=== PATIENT | female | born 1950 | race Caucasian/White ===

== ENCOUNTER 2019-04-04 12:27 | Outpatient (CLI) | payer MEDICARE, SELFPAY ==
--- NOTE | ~2019-04-04 | US_ITS ---
US thyroid INDICATION: Multinodular goiter TECHNIQUE: Real-time sonographic images of the thyroid gland were obtained. COMPARISON: No prior studies for comparison. FINDINGS: The right thyroid lobe measures 2.1 x 0.8 x 0.9 cm. The left thyroid lobe measures 3.7 x 1 x 0.9 cm. There are small hypoechoic masses in both lobes measuring 3 mm maximum dimension on the ri ght and 4 mm maximum dimension on the left. Normal vascular flow is present. IMPRESSION: 1. Atrophic thyroid gland with small 3-4 mm thyroid masses which are likely benign. Reviewed, dictated and finalized at location A. AGE RECEIPT POSTER IMPRESSION: 1. Atrophic thyroid gland with small 3-4 mm thyroid masses which are likely be nign.
== END 2019-04-04 12:28 | disposition home or self-care (01) ==
LOC: ANHIMG 12:33
PROVIDERS: PCP Internal Medicine; Visit Provider Internal Medicine
DX: E04.2 Nontoxic multinodular goiter (principal)
CPT/HCPCS: 76536

== ENCOUNTER → 2019-10-09 14:42 | Outpatient (CLI) | payer MEDICARE, SELFPAY ==
--- NOTE | ~2019-10-09 | XR_ITS ---
XR chest 2V DATE: 10/09/2019 15:01 INDICATION: Cough TECHNIQUE: PA and lateral views COMPARISON: 06/29/2016 two-view chest FINDINGS: Status post right mastectomy and right axillary node dissection. Bilateral chronic lung scarring is noted. Bilateral hyperinflation, suggesting COPD. No pulmonary infiltrate or consolidation, pleural effusion or pulmonary vascular congestion or pneumo thorax is detected. Normal heart size. Aortic arch calcification. Diffuse osteopenia. IMPRESSION: Status post right mastectomy and right axillary node dissection for presumed right breast cancer Bilateral hyperinflation suggesting COPD Chronic bilateral lung scarring No active disease or significant change since 06/29/2016 Reviewed, dictated and finalized at location B.
== END ==
PROVIDERS: Visit Provider Internal Medicine
DX: R05 Cough (principal); Z90.11 Acquired absence of right breast and nipple; R91.8 Other nonspecific abnormal finding of lung field
CPT/HCPCS: 71046

== ENCOUNTER → 2019-12-31 13:11 | Outpatient (CLI) | payer MEDICARE, SELFPAY ==
--- NOTE | ~2019-12-31 | MM_ITS ---
EXAMINATION: MM screening jake LT w nomi HISTORY: Screening left mammogram, history of right mastectomy TECHNIQUE: Craniocaudal and mediolateral oblique 3-D tomosynthesis images were obtained and synthetic 2-D images were generated. CAD analysis was submitted and interpreted. COMPARISON: 12/13/2018, 11/15/2017, 11/11/2016 BREAST PARENCHYMAL COMPOSITION: There are scattered areas of fibroglandular density. FINDINGS: Small, stable masses are present in the breast. There is no evidence of suspicious mass, ca lcification, or architectural distortion to suggest malignancy in either breast. There has been no perez spicious interval change. IMPRESSION: 1. No mammographic evidence of malignancy. 2. Recommend routine screening mammography in one year. BI-RADS Category 2: Benign finding(s). Reviewed, dictated and finalized at location A.
== END ==
PROVIDERS: PCP Internal Medicine; Visit Provider Internal Medicine
DX: Z12.31 Encounter for screening mammogram for malignant neoplasm of breast (principal)
CPT/HCPCS: 77063; 77067

== ENCOUNTER 2020-08-04 07:55 | Outpatient (CLI) | payer MEDICARE, SELFPAY ==
--- NOTE | 2020-08-04 13:02 | WPDPFTINT ---
PFT Procedure Performed PFT Procedure Performed Plethysmography (Lung Vol) Diffusing Cap (DLCO) Flow Vol Loop Spirometry w/o Bronchodil PFT Interpretation This is a pulmonary function test with spirometry, plethysmography and diffusing capacity. The test was performed and results interpreted in accordance with the 2019 and 2005 ATS/ERS Task Force guidelines respectively using the Global Lung Function Initiative-2012 reference equations. Patient demonstrated good effort and cooperation. Reproducibility criteria were met. The quality of the spirometry maneuver was Grade A and post bronchodilator spirometry maneuver was Grade A. Findings: Spirometry: There is decreased maximal expiratory airflow at all lung volumes with concave expiratory flow tracing. The contour the inspiratory flow tracing is normal. The FVC is 1.85 L, 72% predicted. The FEV1 is 1.03 L, 52% predicted. The FEV1: FVC ratio is 56%. Plethysmography: Total lung capacity is 4.78 L, 101% predicted. The functional residual capacity is 3.51 L, 130% predicted. The residual volume is 2.92 L, 138% predicted. Diffusing capacity: The absolute diffusion capacity is 9.4, 49% predicted. The diffusing capacity corrected for alveolar volume is 2.87, 66% predicted. Impression: There is a moderately severe obstructive abnormality. The increase in residual volume is consistent with air trapping from an obstructive abnormality. The absolute diffusing capacity is moderately decreased and normalizes when corrected for alveolar volume. Impression: There is a moderately severe restrictive ventilatory abnormality. The spirometry is normal without evidence of an obstructive abnormality. There is no significant improvement after inhaling a single dose of albuterol. The absolute diffusing capacity is moderately decreased and remains mildly decreased when corrected for alveolar volume. There are no prior studies for comparison
== END 2020-08-04 07:56 | disposition home or self-care (01) ==
PROVIDERS: PCP Internal Medicine; Visit Provider Internal Medicine Cardiovascular Disease
DX: R06.00 Dyspnea, unspecified (principal); R94.2 Abnormal results of pulmonary function studies
CPT/HCPCS: 94375; 94726; 94729

== ENCOUNTER 2020-12-23 07:58 | Outpatient (CLI) | payer MEDICARE, SELFPAY ==
--- NOTE | ~2020-12-23 | CT_ITS ---
EXAMINATION: CT lung screening DATE: 12/23/2020 08:45 INDICATION: Personal history of nicotine dependence. Shortness of breath. TECHNIQUE: Computed tomography (CT) of the chest was performed without intravenous contrast. The dose -length product was 61.00 mGy-cm. Automated exposure control and iterative reconstruction technique w ere employed. COMPARISON: CT dated 06/21/2004 FINDINGS: Status post right mastectomy. There is atherosclerosis of the aorta and coronary arteries. There are calcified granulomas of the liver and spleen. There are calcified mediastinal lymph nodes, consistent with chronic granulomatous disease. There is emphysema. There is upper lobe scarring bilat erally, possibly related to previous radiation therapy and surgery. No endobronchial lesions. No pneu mothorax. No focal airspace consolidation. There are a few 1-2 mm nodules in the subpleural space, li yanira benign. IMPRESSION: 1. Lung-RADS category 2: Benign appearance or behavior. Continue annual screening with noncontrast lo w-dose chest CT in 12 months. Reviewed, dictated and finalized at location B. IMPRESSION: 1. Lung-RADS category 2: Benign appearance or behavior. Continue annual screeni ng with noncontrast low-dose chest CT in 12 months.
--- NOTE | 2020-12-23 12:50 | WPDSIXMINUTE ---
Six Minute Walk Procedure Procedure Performed Pulmonary Stress Test (6 min walk) Six Minute Walk This is a 6 minute walk test. The test was performed and interpreted in accordance with the 2014 ERS/ATS task force guidelines. Findings: The patient's resting room air oxygen saturation measured by pulse oximetry was 94% and her heart rate was 84 bpm. Patient ambulated for 427 meters and oxygen saturation remained 91 to 95%. Heart rate at the end of the study was 122 bpm. The patient did not qualify for supplemental oxygen at rest or with ambulation. There are no prior studies for comparison.
== END 2020-12-23 07:59 | disposition home or self-care (01) ==
PROVIDERS: PCP Internal Medicine; Visit Provider Internal Medicine Pulmonary Disease
DX: Z87.891 Personal history of nicotine dependence (principal)
CPT/HCPCS: 71271; 94618

== ENCOUNTER → 2021-02-17 13:49 | Outpatient (CLI) | payer MEDICARE, SELFPAY ==
--- NOTE | ~2021-02-17 | MM_ITS ---
EXAMINATION: MM screening jake LT w nomi HISTORY: Screening mammogram TECHNIQUE: Craniocaudal and mediolateral oblique 3-D tomosynthesis images were obtained and synthetic 2-D images were generated. CAD analysis was submitted and interpreted. COMPARISON: 12/31/2019, 12/13/2018, 11/15/2017 left screening mammogram examinations BREAST PARENCHYMAL COMPOSITION: There are scattered areas of fibroglandular density. FINDINGS: Occasional circumscribed masses are stable or diminished in size since 12/31/2019. There is no evidence of suspicious mass, calcification, or architectural distortion to suggest malignancy in either breast. There has been no suspicious interval change. IMPRESSION: 1. No mammographic evidence of malignancy. 2. Recommend routine screening mammography in one year. BI-RADS Category 2: Benign finding(s). Reviewed, dictated and finalized at location A. 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
== END ==
PROVIDERS: PCP Internal Medicine; Visit Provider Internal Medicine
DX: Z12.31 Encounter for screening mammogram for malignant neoplasm of breast (principal)
CPT/HCPCS: 77063; 77067

== ENCOUNTER 2021-04-01 08:50 | Outpatient (CLI) | payer MEDICARE, SELFPAY ==
--- NOTE | ~2021-04-01 | US_ITS ---
EXAMINATION: US carotid duplex BI DATE: 04/01/2021 10:11 INDICATION: Right carotid bruit TECHNIQUE: Grayscale, color Doppler, and pulsed Doppler images of the cervical carotid arteries were obtained. The degree of vessel stenosis is placed in one of the following categories: normal, <50%, 5 0-69%, >=70% but less than near-occlusion, near-occlusion, or total occlusion. Note that percent sten osis relative to normal distal artery lumen diameter is indirectly measured from velocity measurement s as described by Gibson, et al. Radiology 2003; 229:340-346. Notes: Normal: Peak systolic velocity <125 centimeters/sec and no plaque <50%. Peak systolic velocity <125 ( EDV <40; ICA/CCA PSV ratio <2.0; used these factors only a tandem lesions or low cardiac output or co ntralateral disease) 50-69 %: PSV 125-230 (EDV 40-100; ratio 2-4) >= 70% but less than near occlusion: PSV greater than 230 (EDV > 100; ratio> 4.0) Near Occlusion: PSV that is variable; markedly narrowed lumen Occlusion: Absent flow on color/spectral Doppler and no lumen on evans scale. COMPARISON: Ultrasound dated 08/28/2013. FINDINGS: RIGHT: The right common carotid artery (CCA) peak systolic velocity (PSV) is 96 cm/s. The right internal car otid artery (ICA) PSV is 156 cm/s. The right ICA end-diastolic velocity (EDV) is 31 cm/s. The right I CA/CCA PSV ratio is 1.6. The external carotid artery (ECA) PSV is 107 cm/s. There is antegrade flow i n the right vertebral artery. LEFT: The left CCA PSV is 90 cm/s. The left ICA PSV is 120 cm/s. The left ICA EDV is 36 cm/s. The left ICA/ CCA PSV ratio is 1.3. The ECA PSV is 114 cm/s. There is antegrade flow in the left vertebral artery. IMPRESSION: 1. 50-69% stenosis in the right internal carotid artery by sonographic criteria. 2. Less than 50% stenosis in the left internal carotid artery by sonographic criteria. Reviewed, dictated and finalized at location B. RMATICS SPEC IMPRESSION: 1. 50-69% stenosis in the right internal carotid artery by sonographic criteria . 2. Less than 50% stenosis in the left internal carotid artery by sonographic cr iteria.
--- NOTE | ~2021-04-01 | US_ITS ---
EXAMINATION: US aorta [facility] DATE: 04/01/2021 10:14 TAP PULLER INDICATION: Abdominal aortic aneurysm screening. History of smoking. High cholesterol. Previous myoca rdial infarction. TECHNIQUE: Grayscale, color Doppler, and pulsed Doppler images of the aorta and common iliac arteries were obtained. COMPARISON: None. FINDINGS: The proximal aorta measures 2.2 cm greatest sagittal dimension. The mid aorta measures 1.9 cm greates t sagittal dimension. The distal aorta measures 2.1 cm greatest sagittal dimension. The right common internal iliac artery measures 1 cm. The left common iliac artery measures 2.7 cm. IMPRESSION: 1. Mild atherosclerosis of the aorta without aneurysm. Reviewed, dictated and finalized at location B. PULLER
== END 2021-04-01 08:51 | disposition home or self-care (01) ==
PROVIDERS: PCP Internal Medicine; Visit Provider Internal Medicine Cardiovascular Disease
DX: R09.89 Other specified symptoms and signs involving the circulatory and respiratory systems (principal); Z13.6 Encounter for screening for cardiovascular disorders; I70.0 Atherosclerosis of aorta; I65.23 Occlusion and stenosis of bilateral carotid arteries
CPT/HCPCS: 76706; 93880

== ENCOUNTER 2021-07-29 11:46 | Emergency (ER) | payer MEDICARE, SELFPAY ==
--- NOTE | ~2021-07-29 | CT_ITS ---
EXAMINATION: CT abdomen pelvis wo con DATE: 07/29/2021 14:05 INDICATION: Right flank pain TECHNIQUE: Computed tomography (CT) of the abdomen and pelvis was performed without intravenous contr ast. The dose-length product was 169.41 mGy-cm. Automated exposure control and iterative reconstructi on technique were employed. COMPARISON: CT dated 09/18/2012 FINDINGS: Lung bases are unremarkable. There are calcified granulomas in the lung, liver and spleen. No significant pleural or pericardial effusion. Heart size is normal. There are subtle hypodense lesi ons of the liver which are not well characterized without contrast. There is nodular appearance to th e liver surface, consistent with cirrhosis. The pancreas, adrenal glands and kidneys are unremarkable . There are left renal vascular calcifications. There is atherosclerosis of the aorta. No evidence fo r aneurysm. No lymphadenopathy. No ureteral stones or hydronephrosis. Bladder is not well distended, although unremarkable. Nonobstructive bowel gas pattern. No free air or free fluid. 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 There is superior endplate compression fractures of L2 and L4, likely chroni c, although new compared with CT dated 09/18/2012. IMPRESSION: 1. No acute abdominal abnormality. 2: No evidence for renal/ureteral stone or hydronephrosis. 3: Nodular appearance to the liver surface with multiple subtle hypodense lesions, not well characte rized without contrast. Cannot exclude malignancy. Further evaluation with contrast-enhanced MRI is r ecommended. Reviewed, dictated and finalized at location A. IMPRESSION: 1. No acute abdominal abnormality. 2: No evidence for renal/ureteral stone or hydronephrosis. 3: Nodular appearance to the liver surface with multiple subtle hypodense lesi ons, not well characterized without contrast. Cannot exclude malignancy. Furthe r evaluation with contrast-enhanced MRI is recommended.
[2021-07-29 11:49] VITALS: BP 152/81; PULSE 121; RESP 16; TEMP 36.6; O2SAT 97
[2021-07-29 12:09] VITALS: BP 115/66; PULSE 112; RESP 19; O2SAT 97
[2021-07-29 12:12] LABS: Basophils Absolute Auto 0.1 K/mm3 (0.0-0.1); Basophils Percent Auto 0.6 % (0.2-1.2); Eosinophils Absolute Auto 0.1 K/mm3 (0-0.3); Eosinophils Percent Auto 1.3 % (0-4.4); Hematocrit 46.6 % (37.0-47.0); Hemoglobin 14.9 g/dL (12.0-15.0); Immature Granulocyte Absolute 0.02 K/mm3 (0.00-0.031); Immature Granulocyte Percent A 0.2 % (0-0.5); Lymphocytes Absolute Auto 1.36 K/mm3 (0.9-3.2); Lymphocytes Percent Auto 15.7 % (18.3-44.2); Mean Corpuscular Volume 90.8 fl (80-100); Mean Platelet Volume 10.4 fl (7.4-10.4); Monocytes Absolute Auto 0.7 K/mm3 (0.1-0.6); Monocytes Percent Auto 8.1 % (2.6-8.5); Neutrophils Absolute Auto 6.4 K/mm3 (1.3-6.7); Neutrophils Percent Auto 74.1 % (45.5-73.1); Platelet Count Result 258 k/mm3 (150-375); Red Blood Count 5.13 M/mm3 (4.2-5.4); Red Cell Distribution Width 13.5 % (11.5-14.5); White Blood Count 8.7 K/mm3 (4.5-10.0)
[2021-07-29 12:21] LABS: Alanine Aminotransferase 24 U/L (6-35); Albumin Level 4.3 g/dL (3.5-5.1); Alkaline Phosphatase 181 U/L (38-126); Anion Gap 11 mmol/L (8-16); Aspartate Amino Transferase 49 U/L (14-36); Bilirubin,Total 0.8 mg/dL (0.2-1.3); Blood Urea Nitrogen 17 mg/dL (7-17); Calcium 9.1 mg/dL (8.4-10.2); Carbon Dioxide 24 mmol/L (22-30); Chloride 101 mmol/L (98-107); Estimated CRCL calculation 49 ml/min; Estimated Glomerular Filt Rate > 60; Glucose 155 mg/dL (65-110); Lipase 67 U/L (23-300); Potassium 4.1 mmol/L (3.4-5.0); Sodium 136 mmol/L (137-145)
[2021-07-29 13:04] LABS: Add Urine Microscopic? YES; Appearance Urine Cloudy (Clear); Bilirubin Urine 2+ (Negative); Blood Urine 1+ (Negative); Color Urine Yellow (Yellow); Glucose Urine UA Negative (Negative); Ketones Urine 1+ mg/dL (Negative); Leukocyte Esterase Ur 1+ LEU/UL (Negative); Nitrate Urine Negative (Negative); Protein Urine 2+ mg/dL (Negative); Specific Grav Ur >= 1.030 (1.001-1.035); pH Urine 5.5 (5.0-9.0)
[2021-07-29 13:08] LABS: Bacteria Urine Trace /hpf; Mucus Urine Heavy /lpf; RBC Urine 21-50 /hpf (0-2); Squamous Epithelial Cell Urine Many /hpf (Few); WBC Clumps Urine Present /HPF; WBC Urine >75 /hpf
[2021-07-29] MEDS: SODIUM CHLORIDE 0.9% IV 1,000 ML 999 ML IV CONT (13:58)
--- NOTE | 2021-07-29 13:58 | PC.NURSE ---
pt taken to CT
[2021-07-29 14:30] VITALS: BP 148/56; PULSE 95; RESP 20; O2SAT 99
--- NOTE | 2021-07-29 15:41 | ED.ABDPAIN ---
HPI - Abdominal Pain General Chief Complaint: Abdominal Pain Stated Complaint: r flank pain Time Seen by Provider: 07/29/21 11:50 Source: patient Mode of arrival: ambulatory Limitations: no limitations History of Present Illness HPI narrative: 71-year-old with a history of COPD, anxiety, hypothyroidism, hyperlipidemia, GERD here with complaints of pain in the right upper and back area for last 2 days. Patient states that she was trying to get out of the couch and experienced sudden onset of pain. She denies any nausea, vomiting or fever or chills. Denies urinary symptoms. MD elicited complaint: abdominal pain and flank pain Pertinent past history: none Onset (ago): day(s) (2) Pain Consistency: constant Location: RUQ Severity: moderate Quality: aching Radiation: none Migration to: no migration Relieving factors: nothing Associated symptoms: denies other symptoms Related Data Home Medications Medication Instructions Recorded Confirmed fexofenadine 180 mg tablet 180 mg PO DAILY 03/21/19 02/19/21 (Zakiya Allergy) fluticasone propionate 50 2 spray intranasal DAILY 03/21/19 02/19/21 mcg/actuation nasal spray,suspension (Flonase Allergy Relief) aspirin 81 mg tablet,delayed 81 mg PO DAILY 06/18/19 02/19/21 release (Adult Low Dose Aspirin) triamcinolone acetonide 0.1 % 1 applic topical TID 10/09/19 02/19/21 topical ointment rosuvastatin 40 mg tablet 40 mg PO DAILY 08/18/20 02/19/21 Allergies Allergy/AdvReac Type Severity Reaction Status Date / Time cinnamon Allergy Severe rash, Verified 07/29/21 11:58 blisters, hives, redness iodine Allergy Severe RASH, Verified 07/29/21 11:58 ITCH, SOB Sulfa (Sulfonamide Allergy Severe THROWS UP Verified 07/29/21 11:58 Antibiotics) BLOOD albuterol Allergy Intermediate itching, Verified 07/29/21 11:58 throat closes up, palpatations dexamethasone Allergy Intermediate rash, Verified 07/29/21 11:58 [From Maxitrol (neomycin blisters, sulf)] hives Fish Containing Products Allergy Intermediate HIVES,ITCHI Verified 07/29/21 11:58 NG ipratropium Allergy Intermediate rash, Verified 07/29/21 11:58 itchy, SOB neomycin Allergy Intermediate rash, Verified 07/29/21 11:58 [From Maxitrol (neomycin blisters, sulf)] hives nitrofurantoin Allergy Intermediate rash, Verified 07/29/21 11:58 [From Macrobid] itchy, SOB perfume Allergy Intermediate rash, Verified 07/29/21 11:58 hives, blisters polymyxin B Allergy Intermediate rash, Verified 07/29/21 11:58 [From Maxitrol (neomycin blisters, sulf)] hives shellfish derived Allergy Intermediate itch, Verified 07/29/21 11:58 rash, SOB wheat Allergy Intermediate CRAMPING, Verified 07/29/21 11:58 DIARRHEA amoxicillin Allergy Unknown Anaphylactic Verified 07/29/21 11:58 Shock soy Allergy Unknown SHUTS DOWN Verified 07/29/21 11:58 URINARY SYSTEM, BLOATS AND CANNOT URINATE laundry soap Tide and Gain Allergy Intermediate blisters, Uncoded 02/19/21 10:38 hives, itchiness, redness, rash Review of Systems Review of Systems: All systems reviewed & are unremarkable except as noted in HPI and below Constitutional: Constitutional: Reports no additional constitutional complaints Eyes: Eyes: Reports no additional eye complaints ENT: Reports system reviewed and no additional complaints, except as documented Cardiovascular: Cardiovascular: Reports no additional cardiovascular complaints Respiratory: Respiratory: Reports no additional respiratory complaints Gastrointestinal: Gastrointestinal: Reports as per HPI Musculoskeletal: Musculoskeletal: Reports no additional musculoskeletal complaints Integumentary/Breasts: Skin/Breast: Reports system reviewed and no additional complaints, except as docu Neurologic: Reports system reviewed and no additional complaints, except as documented Psychiatric: Ps
== END 2021-07-29 16:14 | disposition home or self-care (01) ==
PROVIDERS: Emergency Provider Family Medicine; PCP Internal Medicine
DX: N39.0 Urinary tract infection, site not specified (principal); R10.11 Right upper quadrant pain; E03.9 Hypothyroidism, unspecified; E78.5 Hyperlipidemia, unspecified; J44.9 Chronic obstructive pulmonary disease, unspecified; K21.9 Gastro-esophageal reflux disease without esophagitis; Z79.82 Long term (current) use of aspirin; Z85.3 Personal history of malignant neoplasm of breast; F17.210 Nicotine dependence, cigarettes, uncomplicated; K76.9 Liver disease, unspecified
CPT/HCPCS: 36415; 74176; 80053; 81001; 83690; 85025; 87086; 96361; 96365; 99284; J0696; J7030

== ENCOUNTER 2021-08-11 14:15 | Outpatient (CLI) | payer MEDICARE, SELFPAY ==
--- NOTE | ~2021-08-11 | MR_ITS ---
EXAMINATION: MR abdomen wo/w con DATE: 08/11/2021 15:47 INDICATION: Liver disease, unspecified. TECHNIQUE: Magnetic resonance imaging (MRI) of the abdomen was performed without with 10 mL MultiHanc e intravenous contrast. COMPARISON: CT abdomen and pelvis 07/29/2021, 09/18/2012 FINDINGS: There are greater than 10 masses in the liver measuring up to 5.6 cm. Most of the masses are in right hepatic lobe. Calcifications in the spleen are consistent with old granulomatous disease. The gallbl adder is absent. The pancreas, adrenal glands, and right kidney are normal. There is a 6 mm cyst in l eft kidney. There are no dilated loops of bowel. There are no pathologically enlarged lymph nodes. Th ere is no free intraperitoneal fluid. IMPRESSION: 1. Liver masses, consistent with metastatic disease. Ultrasound-guided core needle biopsy is recommen ded. Reviewed, dictated and finalized at location A. IMPRESSION: 1. Liver masses, consistent with metastatic disease. Ultrasound-guided core nee dle biopsy is recommended.
== END 2021-08-11 14:16 | disposition home or self-care (01) ==
PROVIDERS: PCP Internal Medicine; Visit Provider Internal Medicine
DX: K76.89 Other specified diseases of liver (principal)
CPT/HCPCS: 74183; A9577

== ENCOUNTER 2021-09-01 03:13 | Outpatient (CLI) | payer MEDICARE, SELFPAY ==
--- NOTE | 2021-08-20 12:28 | PC.NURSE ---
Pre Radiology instructions Report to the Outpatient Waiting Room, entrance under the green pavilion located off [facility], at time __0830 on date 09/01/21 . Procedure Time: __1030 . One visitor will be allowed to accompany the patient into the hospital. The visitor will be instructed to remain with patient at all times or leave the building. We will allow the visitor to come back to the postoperative area when patient is ready. You and your visitor will be asked a series of questions to screen for COVID 19 for your protection. A mask is required within the hospital. Patients are to have no food or drink 6 hours prior to procedure time Driving will be restricted after the procedure, you must have a person to drive you home. Labs will be drawn in preop area and once reviewed, you will be taken to radiology area for procedure. When the procedure is completed, you will be taken to outpatient where you will be monitored for several hours. You may have one visitor in this area. Other than holding anti-coagulants, patient may take other medication(s) as scheduled. Prior to your appointment date patients are instructed to hold anti-coagulants after discussing with ordering provider to stop. If unable to discontinue anti-coagulants please notify radiologist. No aspirin or warfarin (Coumadin) for 7 days prior to the procedure. No clopidogrel (Plavix), ticagrelor (Brilinta), prasugrel (Effient) or dabigatran (Pradaxa) for 5 days prior to the procedure. No rivaroxaban (Xarelto), apixaban (Eliquis), dipyridamole (Aggrenox or Persantine) or cilostazol (Pletal) for 2 days prior to the procedure. Medications to discontinue per physician: ASPIRIN Date to take last dose: __08/24/21 Please leave all valuables, including medications, at home the day of procedure. The hospital will not accept responsibility for valuables. Wear comfortable, loose fitting clothing. Follow any additional instructions given to you from ordering provider. Telephone instructions given to __PATIENT and asked if any additional questions and then verbalized understanding. Patient advised to call scheduling provider office or registration scheduling [phone] if any additional questions.
[2021-08-20 12:32] VITALS: BMI 20.8
[2021-09-01] VITALS (8 sets, daily range): BP systolic 122–162; BP diastolic 64–69; PULSE 85–109; RESP 14–16; TEMP 36.7; O2SAT 97–98
--- NOTE | ~2021-09-01 | US_ITS ---
EXAMINATION: US biopsy liver DATE: 09/01/2021 10:29 INDICATION: Liver mass TECHNIQUE: The procedure including the risks and benefits was discussed with the patient. Risks discu ssed included bleeding and infection. The patient understood the risks and agreed to proceed. The sk in overlying the liver was prepped and draped in usual sterile fashion. Anesthetic was administered with 1% lidocaine subcutaneously. An 18 gauge core biopsy needle was advanced under continuous ultra sound observation to the lesion of interest. 3 core biopsy specimens were obtained. The needle was removed and the entry site was cleaned and dressed. Post procedure ultrasound demonstrated no hemorr ab. FINDINGS: Ultrasound images demonstrate an approximately 6.0 x 5.6 cm poorly defined slightly hyperec hoic mass with lobular margins in the right hepatic lobe. Subsequent images demonstrate the biopsy ne edle advanced into the mass. IMPRESSION: 1. Successful Ultrasound-guided biopsy of a 6 cm mass in the right hepatic lobe. Reviewed, dictated and finalized at location A. IMPRESSION: 1. Successful Ultrasound-guided biopsy of a 6 cm mass in the right hepatic lobe .
[2021-09-01 09:21] LABS: Mean Platelet Volume 10.3 fl (7.4-10.4); Platelet Count Result 261 k/mm3 (150-375)
[2021-09-01 09:33] LABS: Prothrombin Time 12.7 Seconds (11.1-14.7)
== END 2021-09-01 14:27 | disposition home or self-care (01) ==
PROVIDERS: PCP Internal Medicine; Visit Provider Radiology Diagnostic Radiology
PROC: BF45ZZZ Ultrasonography of Liver (ICD-10-PCS; CPT 47000; principal; 2021-09-01 10:30)
DX: C22.8 Malignant neoplasm of liver, primary, unspecified as to type (principal); R16.0 Hepatomegaly, not elsewhere classified
CPT/HCPCS: 36415; 47000; 76942; 85049; 85610; 88307; 88342; 88360

== ENCOUNTER 2021-09-16 13:36 | Outpatient (CLI) | payer MEDICARE, SELFPAY ==
--- NOTE | ~2021-09-16 | PE_ITS ---
EXAMINATION: PET skull to mid thigh DATE: 09/16/2021 15:25 INDICATION: Liver cancer TECHNIQUE: Blood glucose level was 115 mg/dL. 10.937 mCi of 18-fluorodeoxyglucose (18-FDG) was admini stered i.v. Low dose computed tomography (CT) images were acquired from the base of the brain to the proximal thighs for attenuation correction and anatomic localization. Positron emission tomography (P ET) images were acquired in the same distribution beginning 57 minutes after injection. Images includ ing fused PET/CT images were reconstructed in axial, coronal, and sagittal planes. Automated exposure control technique was employed. The dose-length product was 356.84mGy-cm. COMPARISON: CT abdomen and pelvis dated 07/29/[address] of chest dated 12/23/2020 FINDINGS: Head/neck: There is symmetric increased activity in the oral cavity, palatine tonsils, right parotid gland laryn geal muscles and ocular muscles without CT correlate, likely physiologic. Poorly defined approximatel y 1 cm FDG avid nodule in the left parotid gland with maximal SUV of 9.2. No pathologically enlarged cervical lymphadenopathy or other suspicious foci of increased FDG uptake in the visualized head or n carie. Chest: Biapical pleural-parenchymal scarring without associated increased FDG uptake. Moderate emphysema. Pa rtial left pneumonectomy with suture lines and linear scarring along portions of the left upper lobe, superior segment of the left lower lobe and lingula. Calcified right lower lobe nodule and calcified mediastinal lymph nodes consistent with old granulomatous disease. No suspicious pulmonary nodules, pneumonia or pleural effusion. Heart size is normal. Atherosclerotic coronary artery calcific locatio n. Thoracic aorta is normal in caliber. Postoperative change of prior right mastectomy. Surgical clip s at the right axilla consistent with associated axillary lymph node dissection. No pathologically en larged for abnormal FDG avid thoracic lymphadenopathy. Abdomen/pelvis/proximal thighs: There are several FDG avid masses or larger geographic regions of increased FDG uptake with coarse bi cipital heterogeneous decreased attenuation on CT imaging which occupy greater than 50% the volume of the right hepatic lobe as well as a portion of segment 4A consistent with biopsy-proven malignancy. Maximal as SUV values of the regions ranges from 7.4-9.0 relative to a hepatic background of 3.1 SUV. Multiple hepatic and splenic calcific lesions consistent with old granulomatous disease. Physiologic renal accumulation and excretion of FDG activity in the kidneys, bladder and along portions of urete rs. Gallbladder is not visualized and likely surgically absent. Pancreas and bilateral adrenal glands are normal. Mild uptake scattered throughout the bowels without radiologic correlate, also likely ph ysiologic. No other abnormal foci of increased FDG uptake or pathologically enlarged lymphadenopathy in the abdomen, pelvis or proximal thighs. Musculoskeletal: There is diffuse synovial activity about the right glenohumeral joint without radiologic correlate. L ikely chronic superior endplate compression fractures with associated Schmorl's nodes at the superior endplates of L2 and L4 which are without increased FDG uptake to suggest acute fracture. No suspicio us lytic, blastic or FDG avid bone lesions. IMPRESSION: 1. Prominent increased FDG uptake associated with multiple masses/geographic regions occupying over h intermediate of the volume of the right hepatic lobe with additional smaller mass in segment 4A consistent wit h biopsy-proven malignant tumor reportedly consistent with metastatic carcinoma in patient with his tory of prior right breast cancer. 2. Approximately 1 cm ill-defined FDG avid mass in the left parotid gland concerning for neoplasm whi ch could be either benign or malignant primary parotid lesion or less likely lymphoma or metastatic d
[2021-09-16 14:02] LABS: Glucose Point of Care 115 mg/dl (65-105)
[2021-09-16 16:46] LABS: Basophils Absolute Auto 0.1 K/mm3 (0.0-0.1); Basophils Percent Auto 0.7 % (0.2-1.2); Eosinophils Absolute Auto 0.1 K/mm3 (0-0.3); Eosinophils Percent Auto 1.3 % (0-4.4); Hematocrit 45.2 % (37.0-47.0); Hemoglobin 14.3 g/dL (12.0-15.0); Immature Granulocyte Absolute 0.01 K/mm3 (0.00-0.031); Immature Granulocyte Percent A 0.1 % (0-0.5); Lymphocytes Absolute Auto 1.47 K/mm3 (0.9-3.2); Lymphocytes Percent Auto 19.4 % (18.3-44.2); Mean Corpuscular HGB Conc 31.6 g/dl (32-36); Mean Corpuscular Hemoglobin 28.6 pg (26-34); Mean Corpuscular Volume 90.4 fl (80-100); Mean Platelet Volume 11.4 fl (7.4-10.4); Monocytes Absolute Auto 0.6 K/mm3 (0.1-0.6); Monocytes Percent Auto 7.7 % (2.6-8.5); Neutrophils Absolute Auto 5.4 K/mm3 (1.3-6.7); Neutrophils Percent Auto 70.8 % (45.5-73.1); Platelet Count Result 217 k/mm3 (150-375); Red Cell Distribution Width 14.5 % (11.5-14.5); White Blood Count 7.6 K/mm3 (4.5-10.0)
[2021-09-16 16:56] LABS: Alanine Aminotransferase 25 U/L (6-35); Albumin Level 4.5 g/dL (3.5-5.1); Alkaline Phosphatase 164 U/L (38-126); Anion Gap 6 mmol/L (8-16); Aspartate Amino Transferase 41 U/L (14-36); Bilirubin,Total 0.5 mg/dL (0.2-1.3); Blood Urea Nitrogen 15 mg/dL (7-17); Carbon Dioxide 29 mmol/L (22-30); Chloride 100 mmol/L (98-107); Estimated Glomerular Filt Rate > 60; Glucose 88 mg/dL (65-110); Potassium 4.3 mmol/L (3.4-5.0); Sodium 135 mmol/L (137-145)
[2021-09-22 04:53] LABS: CA 15-3 46 U/mL (<32)
== END 2021-09-16 13:37 | disposition home or self-care (01) ==
PROVIDERS: PCP Internal Medicine; Visit Provider Internal Medicine Hematology & Oncology
DX: Z03.89 Encounter for observation for other suspected diseases and conditions ruled out (principal); C22.8 Malignant neoplasm of liver, primary, unspecified as to type; C50.919 Malignant neoplasm of unspecified site of unspecified female breast
CPT/HCPCS: 36415; 78815; 80053; 85025; 86300; A9552

== ENCOUNTER 2021-11-25 10:42 | Outpatient (CLI) | payer MEDICARE, SELFPAY ==
[2021-11-25 11:47] LABS: Basophils Percent Auto 1.6 % (0.2-1.2); Eosinophils Percent Auto 1.2 % (0-4.4); Hematocrit 38.4 % (37.0-47.0); Hemoglobin 12.4 g/dL (12.0-15.0); Immature Granulocyte Absolute 0.01 K/mm3 (0.00-0.031); Immature Granulocyte Percent A 0.4 % (0-0.5); Lymphocytes Absolute Auto 0.72 K/mm3 (0.9-3.2); Lymphocytes Percent Auto 29.4 % (18.3-44.2); Mean Corpuscular HGB Conc 32.3 g/dl (32-36); Mean Corpuscular Hemoglobin 30.5 pg (26-34); Mean Corpuscular Volume 94.3 fl (80-100); Mean Platelet Volume 9.7 fl (7.4-10.4); Monocytes Absolute Auto 0.1 K/mm3 (0.1-0.6); Monocytes Percent Auto 5.7 % (2.6-8.5); Neutrophils Absolute Auto 1.5 K/mm3 (1.3-6.7); Neutrophils Percent Auto 61.7 % (45.5-73.1); Platelet Count Result 145 k/mm3 (150-375); Red Blood Count 4.07 M/mm3 (4.2-5.4); Red Cell Distribution Width 18.9 % (11.5-14.5); White Blood Count 2.5 K/mm3 (4.5-10.0)
[2021-11-25 11:51] LABS: Schistocytes None Seen (NORMAL)
[2021-11-25 11:52] LABS: Atypical Lymphocytes Present
[2021-11-25 14:32] LABS: Alanine Aminotransferase 24 U/L (6-35); Albumin Level 4.1 g/dL (3.5-5.1); Alkaline Phosphatase 127 U/L (38-126); Anion Gap 12 mmol/L (8-16); Aspartate Amino Transferase 33 U/L (14-36); Bilirubin,Total 0.5 mg/dL (0.2-1.3); Blood Urea Nitrogen 22 mg/dL (7-17); Carbon Dioxide 24 mmol/L (22-30); Chloride 102 mmol/L (98-107); Estimated Glomerular Filt Rate 54; Glucose 105 mg/dL (65-110); Potassium 4.5 mmol/L (3.4-5.0); Sodium 138 mmol/L (137-145)
[2021-11-28 15:14] LABS: CA 15-3 63 U/mL (<32)
== END 2021-11-25 10:43 | disposition home or self-care (01) ==
LOC: ANHLAB 10:44
PROVIDERS: PCP Internal Medicine; Visit Provider Internal Medicine Hematology & Oncology
DX: C50.919 Malignant neoplasm of unspecified site of unspecified female breast (principal)
CPT/HCPCS: 36415; 80053; 85025; 86300

== ENCOUNTER 2021-12-29 08:45 | Outpatient (CLI) | payer MEDICARE, SELFPAY ==
--- NOTE | ~2021-12-29 | CT_ITS ---
EXAMINATION: CT chest abdomen pelvis w con DATE: 12/29/2021 09:19 INDICATION: Metastatic breast cancer. TECHNIQUE: Computed tomography (CT) of the chest, abdomen, and pelvis was performed with 100 mL Omnip aque 350 intravenous contrast. Automated exposure control and iterative reconstruction technique were employed. The dose-length product was 331.32 mGy-cm. COMPARISON: CT abdomen and pelvis 07/29/2021, abdomen MRI 08/11/2021 FINDINGS: CHEST CT: There is severe emphysema. There is mild scarring at the lung apices. There is mild radiation fibrosi s in anterolateral lateral right lung. Calcified pulmonary nodules and calcified hilar and mediastina l lymph nodes are consistent with old granulomatous disease. There are staple lines in left lung. No pleural effusion. The heart size is normal. There are coronary artery calcifications. No pericardial effusion. There are changes of right mastectomy. There are surgical clips in right axilla. There is s evere thoracic spondylosis. There is mild chronic anterior wedging of multiple vertebral bodies. ABDOMEN/PELVIS CT: Again seen are multiple hypodense masses in the liver. For example, a 5.2 cm mass in right hepatic lo be measured 6.0 cm on 08/11/2021. A 2.1 cm mass right hepatic lobe measured 2.0 cm on 08/11/2021. A 3.2 c m mass in right hepatic lobe measured 3.4 cm on 08/11/2021. Calcifications in the spleen are consistent with old granulomatous disease. The gallbladder is absent. The pancreas and adrenal glands are concepcion l. There is cortical thinning of the kidneys. There is a 5 mm cyst in left kidney. There is diverticu losis of the colon without evidence of diverticulitis. There are no dilated loops of bowel. The appen suly is not visualized. There is no significant stenosis of celiac axis. There is moderate stenosis of superior mesenteric artery. There are no pathologically enlarged lymph nodes. There is no free intra peritoneal fluid. There is mild lumbar spondylosis. There are chronic fractures of L2 and L4 vertebra l bodies. IMPRESSION: 1. Liver masses consistent with metastatic disease, stable from 08/11/2021. Reviewed, dictated and finalized at location A.
[2021-12-29 09:15] LABS: Estimated Glomerular Filt Rate > 60
== END 2021-12-29 08:46 | disposition home or self-care (01) ==
PROVIDERS: PCP Internal Medicine; Visit Provider Internal Medicine Hematology & Oncology
DX: C50.919 Malignant neoplasm of unspecified site of unspecified female breast (principal); R16.0 Hepatomegaly, not elsewhere classified
CPT/HCPCS: 36415; 71260; 74177; 80053; 85025; 86300; Q9967

== ENCOUNTER 2021-12-29 09:42 | Outpatient (CLI) | payer MEDICARE, SELFPAY ==
[2021-12-29 10:07] LABS: Hematocrit 31.8 % (37.0-47.0); Hemoglobin 11.1 g/dL (12.0-15.0); Immature Granulocyte Absolute 0.03 K/mm3 (0.00-0.031); Immature Granulocyte Percent A 0.6 % (0-0.5); Lymphocytes Absolute Auto 0.29 K/mm3 (0.9-3.2); Lymphocytes Percent Auto 6.2 % (18.3-44.2); Mean Corpuscular HGB Conc 34.9 g/dl (32-36); Mean Corpuscular Hemoglobin 33.4 pg (26-34); Mean Corpuscular Volume 95.8 fl (80-100); Mean Platelet Volume 9.4 fl (7.4-10.4); Monocytes Absolute Auto 0.2 K/mm3 (0.1-0.6); Monocytes Percent Auto 3.4 % (2.6-8.5); Neutrophils Absolute Auto 4.2 K/mm3 (1.3-6.7); Neutrophils Percent Auto 89.8 % (45.5-73.1); Platelet Count Result 193 k/mm3 (150-375); Red Blood Count 3.32 M/mm3 (4.2-5.4); Red Cell Distribution Width 21.2 % (11.5-14.5); White Blood Count 4.7 K/mm3 (4.5-10.0)
[2021-12-29 13:40] LABS: Alanine Aminotransferase 23 U/L (6-35); Albumin Level 4.2 g/dL (3.5-5.1); Alkaline Phosphatase 103 U/L (38-126); Anion Gap 17 mmol/L (8-16); Aspartate Amino Transferase 26 U/L (14-36); Bilirubin,Total 0.5 mg/dL (0.2-1.3); Blood Urea Nitrogen 20 mg/dL (7-17); Calcium 8.6 mg/dL (8.4-10.2); Carbon Dioxide 23 mmol/L (22-30); Chloride 102 mmol/L (98-107); Estimated Glomerular Filt Rate > 60; Glucose 147 mg/dL (65-110); Potassium 3.5 mmol/L (3.4-5.0); Sodium 142 mmol/L (137-145)
[2022-01-03 13:15] LABS: CA 15-3 71 U/mL (<32)
== END 2021-12-29 09:43 | disposition home or self-care (01) ==
LOC: ANHLAB 09:43
PROVIDERS: PCP Internal Medicine; Visit Provider Internal Medicine Hematology & Oncology
DX: C50.919 Malignant neoplasm of unspecified site of unspecified female breast (principal)
CPT/HCPCS: 36415; 80053; 85025; 86300

== ENCOUNTER 2022-03-08 10:55 | Outpatient (CLI) | payer MEDICARE, SELFPAY ==
[2022-03-08 11:57] LABS: Basophils Percent Auto 1.8 % (0.2-1.2); Eosinophils Absolute Auto 0.1 K/mm3 (0-0.3); Eosinophils Percent Auto 3.1 % (0-4.4); Hematocrit 36.7 % (37.0-47.0); Hemoglobin 12.3 g/dL (12.0-15.0); Immature Granulocyte Absolute 0.02 K/mm3 (0.00-0.031); Immature Granulocyte Percent A 0.9 % (0-0.5); Lymphocytes Percent Auto 26.4 % (18.3-44.2); Mean Corpuscular HGB Conc 33.5 g/dl (32-36); Mean Corpuscular Hemoglobin 36.9 pg (26-34); Mean Corpuscular Volume 110.2 fl (80-100); Mean Platelet Volume 9.2 fl (7.4-10.4); Monocytes Absolute Auto 0.1 K/mm3 (0.1-0.6); Monocytes Percent Auto 4.4 % (2.6-8.5); Neutrophils Absolute Auto 1.4 K/mm3 (1.3-6.7); Neutrophils Percent Auto 63.4 % (45.5-73.1); Platelet Count Result 294 k/mm3 (150-375); Red Blood Count 3.33 M/mm3 (4.2-5.4); Red Cell Distribution Width 14.2 % (11.5-14.5); White Blood Count 2.3 K/mm3 (4.5-10.0)
[2022-03-08 12:02] LABS: Atypical Lymphocytes Present; Platelet Estimate Adequate (Adequate); Schistocytes None Seen (NORMAL)
[2022-03-08 20:48] LABS: Alanine Aminotransferase 20 U/L (6-35); Albumin Level 4.3 g/dL (3.5-5.1); Alkaline Phosphatase 125 U/L (38-126); Anion Gap 8 mmol/L (8-16); Aspartate Amino Transferase 25 U/L (14-36); Bilirubin,Total 0.6 mg/dL (0.2-1.3); Blood Urea Nitrogen 18 mg/dL (7-17); Calcium 9.1 mg/dL (8.4-10.2); Carbon Dioxide 26 mmol/L (22-30); Chloride 102 mmol/L (98-107); Estimated Glomerular Filt Rate 49; Glucose 93 mg/dL (65-110); Potassium 4.3 mmol/L (3.4-5.0); Sodium 136 mmol/L (137-145)
[2022-03-11 14:39] LABS: CA 15-3 51 U/mL (<32)
== END 2022-03-08 10:56 | disposition home or self-care (01) ==
PROVIDERS: PCP Physician Assistant; Visit Provider Internal Medicine Hematology & Oncology
DX: C50.919 Malignant neoplasm of unspecified site of unspecified female breast (principal)
CPT/HCPCS: 36415; 80053; 85025; 86300

== ENCOUNTER → 2022-03-21 10:33 | Outpatient (CLI) | payer MEDICARE, SELFPAY ==
--- NOTE | ~2022-03-21 | XR_ITS ---
XR lumbar spine 2-3V DATE: 03/21/2022 10:46 INDICATION: Back pain TECHNIQUE: AP, lateral, coned lateral lumbosacral views COMPARISON: 12/02/2016 lumbar spine 12/16/2016 MRI lumbar spine FINDINGS: There is chronic mild anterior wedge compression fracture deformity of L4. This appears sta ble since 12/02/2016. There is interval mild anterior wedge compression fracture deformity of L2, not present on 12/02/2016. No bone destruction is evident. Included lower thoracic and lumbar pedicles are intact. Diffuse osteopenia. There is moderate loss of disc space height at L1-2. Remaining lumbar and upper sacral interspaces ap pear relatively preserved. There is degenerative change at the apophyseal joints in the lower lumbar and lumbosacral area with a ssociated grade 1 anterolisthesis at L4-5. The sacroiliac joints are intact. IMPRESSION: Mild anterior wedge compression fracture of L2 since 12/02/2016 Stable mild to moderate anterior wedge compression fracture deformity of L4, unchanged since Moderate degenerative disease at L1-2 Degenerative changes apophyseal joints, with associated grade 1 anterolisthesis at L4-5 Osteopenia Reviewed, dictated and finalized at location B. [employer] IMPRESSION: Mild anterior wedge compression fracture of L2 since 12/02/2016 Stable mild to moderate anterior wedge compression fracture deformity of L4, un changed since 12/02/2021 Moderate degenerative disease at L1-2 Degenerative changes apophyseal joints, with associated grade 1 anterolisthesis at L4-5 Osteopenia
== END ==
PROVIDERS: PCP Internal Medicine; Visit Provider Internal Medicine
DX: M54.9 Dorsalgia, unspecified (principal); M48.56XA Collapsed vertebra, not elsewhere classified, lumbar region, initial encounter for fracture; M51.36 Other intervertebral disc degeneration, lumbar region; M85.88 Other specified disorders of bone density and structure, other site
CPT/HCPCS: 72100

== ENCOUNTER 2022-04-28 12:37 | Outpatient (CLI) | payer MEDICARE, SELFPAY ==
[2022-04-28 10:10] LABS: Basophils Absolute Auto 0.1 K/mm3 (0.0-0.1); Basophils Percent Auto 0.8 % (0.2-1.2); Eosinophils Absolute Auto 0.2 K/mm3 (0-0.3); Eosinophils Percent Auto 3.7 % (0-4.4); Hematocrit 39.5 % (37.0-47.0); Hemoglobin 12.9 g/dL (12.0-15.0); Immature Granulocyte Absolute 0.04 K/mm3 (0.00-0.031); Immature Granulocyte Percent A 0.6 % (0-0.5); Lymphocytes Absolute Auto 1.09 K/mm3 (0.9-3.2); Lymphocytes Percent Auto 16.9 % (18.3-44.2); Mean Corpuscular HGB Conc 32.7 g/dl (32-36); Mean Corpuscular Hemoglobin 34.7 pg (26-34); Mean Corpuscular Volume 106.2 fl (80-100); Mean Platelet Volume 11.3 fl (7.4-10.4); Monocytes Absolute Auto 0.2 K/mm3 (0.1-0.6); Monocytes Percent Auto 3.1 % (2.6-8.5); Neutrophils Absolute Auto 4.8 K/mm3 (1.3-6.7); Neutrophils Percent Auto 74.9 % (45.5-73.1); Platelet Count Result 246 k/mm3 (150-375); Red Blood Count 3.72 M/mm3 (4.2-5.4); Red Cell Distribution Width 13.2 % (11.5-14.5); White Blood Count 6.5 K/mm3 (4.5-10.0)
[2022-04-28 10:24] LABS: Alanine Aminotransferase 24 U/L (6-35); Albumin Level 4.6 g/dL (3.5-5.1); Alkaline Phosphatase 173 U/L (38-126); Anion Gap 8 mmol/L (8-16); Aspartate Amino Transferase 27 U/L (14-36); Bilirubin,Total 0.7 mg/dL (0.2-1.3); Blood Urea Nitrogen 32 mg/dL (7-17); Calcium 8.8 mg/dL (8.4-10.2); Carbon Dioxide 29 mmol/L (22-30); Chloride 99 mmol/L (98-107); Estimated Glomerular Filt Rate 40; Glucose 113 mg/dL (65-110); Potassium 3.4 mmol/L (3.4-5.0); Sodium 136 mmol/L (137-145)
[2022-05-02 15:22] LABS: CA 15-3 41 U/mL (<32)
== END 2022-04-28 12:38 | disposition home or self-care (01) ==
PROVIDERS: PCP Internal Medicine; Visit Provider Internal Medicine Hematology & Oncology
DX: C50.919 Malignant neoplasm of unspecified site of unspecified female breast (principal)
CPT/HCPCS: 36415; 80053; 85025; 86300

== ENCOUNTER 2022-05-05 07:27 | Outpatient (CLI) | payer MEDICARE, SELFPAY ==
--- NOTE | ~2022-05-05 | CT_ITS ---
EXAMINATION: CT chest abdomen pelvis w con DATE: 05/05/2022 07:56 INDICATION: Metastatic breast cancer. TECHNIQUE: Computed tomography (CT) of the chest, abdomen, and pelvis was performed with 100 mL Omnip aque 350 intravenous contrast. Automated exposure control and iterative reconstruction technique were employed. The dose-length product was 355.60 mGy-cm. COMPARISON: CT chest, abdomen, and pelvis 12/29/2021 FINDINGS: CHEST CT: There is scarring at the lung apices, right worse than left. There is severe emphysema. There is a st aple line in left upper lobe. There is peripheral scarring in anterolateral right lung, likely radiat ion fibrosis. A calcified right lung nodule and calcified mediastinal lymph nodes are consistent with old granulomatous disease. No pleural effusion. There are changes of right mastectomy. There are luisito gical clips in right axilla. The heart size is normal. There are coronary artery calcifications. No p ericardial effusion. There is a compression fracture of T12, new from 12/29/2021. There is severe tho racic spondylosis. There is mild chronic anterior wedging of multiple vertebral bodies. ABDOMEN/PELVIS CT: There are greater than 10 low-attenuation masses in the liver. For example, a 5.6 x 5.0 mass in cente red in right hepatic lobe previously measured 6.2 x 5.1 cm. A 14 mm mass in right hepatic lobe previo usly measured 22 mm. A 14 mm mass in left hepatic lobe previously measured 15 mm. Calcifications in t he spleen are consistent with old granulomatous disease. The pancreas and adrenal glands are normal. There is focal volume loss in right kidney upper pole. There are cysts in left kidney measuring up to 6 mm. There is diverticulosis of the colon without evidence of diverticulitis. There are no dilated loops of bowel. There are no pathologically enlarged lymph nodes. There is no free intraperitoneal fl uid. There are healing insufficiency fractures of the bilateral sacral ala, new from 12/29/2021. Ther e are chronic compression fractures of L2 and L4. There is a compression fracture of L3 without signi ficant height loss, new from 12/29/2021. IMPRESSION: 1. Liver masses with mild improvement, consistent metastatic disease. 2. Age-indeterminate compression fractures of T12 and L3, new from 12/29/2021. 3. Healing sacral insufficiency fractures, new from 12/29/2021. 4. Severe emphysema. Reviewed, dictated and finalized at location A. [employer]
== END 2022-05-05 07:28 | disposition home or self-care (01) ==
PROVIDERS: PCP Internal Medicine; Visit Provider Internal Medicine Hematology & Oncology
DX: C50.919 Malignant neoplasm of unspecified site of unspecified female breast (principal); R16.0 Hepatomegaly, not elsewhere classified; M48.54XA Collapsed vertebra, not elsewhere classified, thoracic region, initial encounter for fracture; J43.9 Emphysema, unspecified
CPT/HCPCS: 71260; 74177; Q9967

== ENCOUNTER → 2022-05-19 12:32 | Outpatient (CLI) | payer MEDICARE, SELFPAY ==
--- NOTE | ~2022-05-19 | MR_ITS ---
EXAMINATION: MR lumbar spine wo/w con, MR thoracic spine wo/w con DATE: 05/19/2022 14:59 INDICATION: Thoracic compression fracture TECHNIQUE: 1. Magnetic resonance imaging (MRI) of the thoracic spine was performed without and with 9 mL Multiha nce intravenous contrast. Sagittal localizer T1-weighted FSE of the cervicothoracic spine was obtaine d. Sequences included sagittal T2-weighted FSE, sagittal T2-weighted FS FSE, sagittal T1-weighted FSE and axial T1-weighted SE. Postcontrast sequences included axial T2-weighted FSE, sagittal T1-weighte d FS FSE, and axial T1-weighted FS SE. 2. MRI of the lumbar spine was performed without and with 9 mL Multihance intravenous contrast. Seque nces included sagittal T2-weighted FSE, sagittal T2-weighted FS FSE, and sagittal and axial T1-weight ed FSE. Postcontrast sequences included axial T2-weighted FSE, sagittal T1-weighted FSE, and axial an d sagittal T1-weighted FS FSE. COMPARISON: Lumbar spine MR dated 12/16/2016, radiographs dated 03/21/[address] chest, abdomen and p ashwini dated 05/05/2022 FINDINGS: Thoracic spine: 10 degrees thoracic dextroscoliosis. Mild upper thoracic kyphosis with chronic minimal anterior wedgi ng at T6-T8. More recent inferior endplate compression fracture with associated marrow edema and enha ncement at T11 and up to 20% anterior to central vertebral body height loss. There is associated jenny ow edema. There is otherwise normal marrow signal throughout the more cephalad thoracic spine. Modera te to severe disc height loss at T6-T7 through T9-T10. Mild disc height loss at T2-T3 through T5-T6. The discs do not extend beyond the endplate margins with no central canal stenosis. There is multilev el bilateral mild to moderate thoracic facet osteoarthritis. No neural foraminal stenosis. There is n ormal spinal cord signal throughout. Aside from the marrow enhancement associated with a compression fracture there are no other enhancing spinal lesions identified. Multiple hepatic masses with heterog eneous signal and mild enhancement in the visualized posterior aspect of the right hepatic lobe consi stent with metastatic disease as seen on prior CT. Paravertebral soft tissues are unremarkable. Lumbar spine: Alignment is normal. There is an additional recent superior endplate compression fracture at L1 with minimal central vertebral body height loss. There is marrow edema and enhancement at the cephalad lilian f of the vertebral body with linear low signal intensity fracture line underlying the right posterior aspect of the superior endplate. Marrow signal is otherwise unremarkable. There are chronic Schmorl' s nodes along the superior endplates of L2 and L3 and inferior endplate of L5 with associated mild en hancement. Additional small Schmorl's node superimposed over a more extensive chronic superior endpla te compression fracture at L4 with up to 20% anterior and central vertebral body height loss. Mild di sc height loss at L2-L3, L4-L5 and L5-S1. There is ballooning of the central disc spaces at T12-L1, L 1-L2 and L3-L4. The conus medullaris terminates at L1. There is normal signal in the conus. Paraverte bral soft tissues are unremarkable. Aside from the enhancement associated with the compression fractu re and Schmorl's nodes there are no other abnormally enhancing lesions. The following disc levels are specifically discussed: T12-L1: The disc does not extend beyond the endplate margin. There is mild bilateral facet joint oste oarthritis. There is no neural foraminal stenosis. There is no central canal stenosis. L1-L2: Disc is mildly bulging. There is mild right and moderate left facet joint osteoarthritis. Ther e is no neural foraminal stenosis. There is no central canal stenosis. L2-L3: Disc is bulging. There is mild left and moderate right facet joint osteoarthritis. There is no neural foraminal stenosis. There is mild central canal stenosis.
== END ==
PROVIDERS: PCP Internal Medicine; Visit Provider Internal Medicine Hematology & Oncology
DX: S22.000A Wedge compression fracture of unspecified thoracic vertebra, initial encounter for closed fracture (principal); M47.816 Spondylosis without myelopathy or radiculopathy, lumbar region; T14.90XA Injury, unspecified, initial encounter
CPT/HCPCS: 72157; 72158; A9577

== ENCOUNTER 2022-05-23 14:07 | Outpatient (CLI) | payer MEDICARE, SELFPAY ==
[2022-05-23 14:23] LABS: Basophils Absolute Auto 0.1 K/mm3 (0.0-0.1); Basophils Percent Auto 1.4 % (0.2-1.2); Eosinophils Absolute Auto 0.1 K/mm3 (0-0.3); Eosinophils Percent Auto 1.7 % (0-4.4); Hematocrit 38.1 % (37.0-47.0); Hemoglobin 12.8 g/dL (12.0-15.0); Immature Granulocyte Absolute 0.01 K/mm3 (0.00-0.031); Immature Granulocyte Percent A 0.3 % (0-0.5); Lymphocytes Absolute Auto 1.06 K/mm3 (0.9-3.2); Lymphocytes Percent Auto 30.4 % (18.3-44.2); Mean Corpuscular HGB Conc 33.6 g/dl (32-36); Mean Corpuscular Hemoglobin 34.9 pg (26-34); Mean Corpuscular Volume 103.8 fl (80-100); Monocytes Absolute Auto 0.3 K/mm3 (0.1-0.6); Monocytes Percent Auto 8.6 % (2.6-8.5); Neutrophils Percent Auto 57.6 % (45.5-73.1); Platelet Count Result 333 k/mm3 (150-375); Red Blood Count 3.67 M/mm3 (4.2-5.4); Red Cell Distribution Width 14.8 % (11.5-14.5); White Blood Count 3.5 K/mm3 (4.5-10.0)
[2022-05-23 16:27] LABS: Alanine Aminotransferase 23 U/L (6-35); Albumin Level 4.3 g/dL (3.5-5.1); Alkaline Phosphatase 178 U/L (38-126); Anion Gap 7 mmol/L (8-16); Aspartate Amino Transferase 35 U/L (14-36); Bilirubin,Total 0.9 mg/dL (0.2-1.3); Blood Urea Nitrogen 24 mg/dL (7-17); Calcium 9.1 mg/dL (8.4-10.2); Carbon Dioxide 27 mmol/L (22-30); Chloride 104 mmol/L (98-107); Estimated Glomerular Filt Rate 49; Glucose 140 mg/dL (65-110); Sodium 138 mmol/L (137-145)
[2022-05-26 05:25] LABS: CA 15-3 36 U/mL (<32)
== END 2022-05-23 14:08 | disposition home or self-care (01) ==
LOC: ANHLAB 14:10
PROVIDERS: PCP Internal Medicine; Visit Provider Internal Medicine Hematology & Oncology
DX: C50.919 Malignant neoplasm of unspecified site of unspecified female breast (principal)
CPT/HCPCS: 36415; 80053; 85025; 86300

== ENCOUNTER 2022-05-27 08:57 | Outpatient (CLI) | payer MEDICARE, SELFPAY ==
--- NOTE | ~2022-05-27 | NM_ITS ---
EXAMINATION: NM bone scan whole body DATE: 05/27/2022 12:43 INDICATION: Metastatic breast cancer TECHNIQUE: 24.2 mCi Tc-99m HDP was administered intravenously. Delayed whole-body scintigrams were o btained. COMPARISON: Thoracic and lumbar spine MR dated 05/19/2022 CT chest, abdomen and pelvis dated 05/05/2022 and 12/29/2021 FINDINGS: There is linear increased uptake extending across the inferior endplate of T12 and more prominently a t the superior endplate of L1 consistent with recent compression fractures is previously noted on MRI . Additional mild uptake bilaterally in the region of the sacroiliac joints, right greater than left with corresponding bilateral sacral insufficiency fractures evident on the prior CT. Both the sacral insufficiency fractures and the compression fractures at T12 and L1 are new since the earlier CT date d 12/29/2021. Likely degenerative mild uptake at the bilateral sternoclavicular joints. No other susp icious foci of abnormal bone uptake to suggest metastatic disease. IMPRESSION: 1. Uptake associated with a relatively recent T12 and L1 compression fractures and bilateral sacral a lar insufficiency fractures. No lesion suspicious for metastatic disease. Reviewed, dictated and finalized at location A. IMPRESSION: 1. Uptake associated with a relatively recent T12 and L1 compression fractures and bilateral sacral alar insufficiency fractures. No lesion suspicious for met astatic disease.
== END 2022-05-27 08:58 | disposition home or self-care (01) ==
PROVIDERS: PCP Internal Medicine; Visit Provider Internal Medicine Hematology & Oncology
DX: C50.919 Malignant neoplasm of unspecified site of unspecified female breast (principal); M48.54XA Collapsed vertebra, not elsewhere classified, thoracic region, initial encounter for fracture; M48.56XA Collapsed vertebra, not elsewhere classified, lumbar region, initial encounter for fracture
CPT/HCPCS: 78306; A9503

== ENCOUNTER 2022-09-15 10:36 | Outpatient (CLI) | payer MEDICARE, SELFPAY ==
[2022-09-15 13:00] LABS: Free T4 Free Thyroxine 2.01 ng/mL (0.78-2.19)
== END 2022-09-15 10:37 | disposition home or self-care (01) ==
LOC: ANHLAB 10:39
PROVIDERS: PCP Internal Medicine; Visit Provider Internal Medicine
DX: R13.10 Dysphagia, unspecified (principal); E03.9 Hypothyroidism, unspecified
CPT/HCPCS: 36415; 84439; 84443

== ENCOUNTER 2022-11-20 11:00 | Inpatient (IN) | payer MEDICARE, SELFPAY ==
[2022-11-20] VITALS (26 sets, daily range): BP systolic 130–166; BP diastolic 54–69; PULSE 85–99; RESP 11–27; TEMP 36.4–36.9; O2SAT 92–99
--- NOTE | ~2022-11-20 | CT_ITS ---
EXAMINATION: CT abdomen pelvis wo con DATE: 11/20/2022 11:42 INDICATION: Abdominal pain, right upper quadrant. Nausea and vomiting. TECHNIQUE: Computed tomography (CT) of the abdomen and pelvis was performed without intravenous contr ast. Automated exposure control and iterative reconstruction technique were employed. Exam dose: 211 .75 mGy-cm total exam DLP. COMPARISON: 05/05/2022 CT chest abdomen pelvis FINDINGS: Calcified right lower lobe pulmonary granuloma and multiple hepatic and splenic calcified g ranulomas, consistent with old granulomatous disease. The lung bases are clear of infiltrate or consolidation. Normal heart size. No pericardial or pleural effusion. The gallbladder is absent. No hepatic space-occupying mass lesion or bile duct dilatation. No pancreatic mass lesion, calcification or ductal dilatation. Normal splenic size. Normal morphology of the adrenal glands. No renal mass lesion is evident on this limited noncontrast examination. No urinary tract calculus or hydroureteronephrosis. The urinary bladder is relatively evacuated. Status post hysterectomy. There is extensive atherosclerotic calcification of the abdominal aorta. No abdominal aortic aneurysm . No intraperitoneal or retroperitoneal or pelvic mass lesion or adenopathy or ascites is noted. The appendix is not visualized. There is diverticulosis of the colon. There is small bowel dilatation with multiple small bowel air-fluid levels. The distal small bowel is of normal caliber. Small bowel obstruction, possibly due to adhesions or internal hernia must be con sidered. Surgical consultation is recommended. No intraperitoneal free air is detected. Diffuse osteopenia. Status post vertebroplasty at T12 and L1. There are compression fracture deformit ies of L2 and L4. Prominent degenerative change at the apophyseal joints in the lower lumbar and lumbosacral area. IMPRESSION: Distal small bowel obstruction, possibly due to adhesions or internal hernia. Surgical c onsultation is recommended Diverticulosis of the colon Reviewed, dictated and finalized at [facility]. Reviewed, dictated and finalized at location A. IMPRESSION: Distal small bowel obstruction, possibly due to adhesions or inter nal hernia. Surgical consultation is recommended Diverticulosis of the colon
--- NOTE | ~2022-11-20 | XR_ITS ---
EXAMINATION: XR abdomen/kub 1V INDICATION: Small bowel obstruction TECHNIQUE: Supine view the abdomen is obtained COMPARISON: 11/20/2022 FINDINGS: The tip of the nasogastric tube is in the stomach. The proximal side port is 2 cm above the gastroesophageal junction. Multiple dilated loops of small bowel are seen. Vertebroplasty changes no chau at T12 and L1. IMPRESSION: 1. Tip of the nasogastric tube in the stomach with proximal side port 2 cm above the GE junction. Rec ommend advancing 4 to 5 cm. 2. Small bowel obstruction. Reviewed, dictated and finalized at location B. IMPRESSION: 1. Tip of the nasogastric tube in the stomach with proximal side port 2 cm abov e the GE junction. Recommend advancing 4 to 5 cm. 2. Small bowel obstruction.
--- NOTE | ~2022-11-20 | XR_ITS ---
EXAMINATION: XR sm bowel follow through WS DATE: 11/23/2022 12:04 INDICATION: Small bowel obstruction on recent CT . TECHNIQUE: [employer] radiograph(s) of the abdomen was/were obtained. Water-soluble oral contrast was admi nistered, and sequential radiographs of the abdomen were obtained until oral contrast was noted to be in the proximal colon. COMPARISON: CT dated 11/20/2022 and obstructive series dated 11/22/2022 FINDINGS: [employer] image demonstrates nasogastric tube tip in proximal side port in the stomach. Multiple scattere d small calcified nodules in the liver and spleen consistent with old granulomatous disease. T12 and L1 vertebroplasties. Moderate amount of gas scattered throughout nondilated loops of large and small bowel. There is also a moderate amount of colonic stool. Subsequent images demonstrate gradual advanc ement of the contrast throughout the small bowel with transit time from the stomach to proximal colon of 1 hour and 30 minutes. There is normal caliber and mucosal fold pattern throughout the small henry l. IMPRESSION: 1. Normal small bowel follow-through. Reviewed, dictated and finalized at location A.
--- NOTE | ~2022-11-20 | XR_ITS ---
EXAMINATION: XR_KUBGTUBPOS_CR DATE: 11/21/2022 11:49 INDICATION: Nasogastric tube advancement TECHNIQUE: Portable AP upright view of the abdomen and mid to lower chest was obtained to evaluate fo r nasogastric tube repositioning. COMPARISON: 11/21/2022 at 10:15 AM FINDINGS: Nasogastric tube has been advanced with distal tip and proximal side port in the body of the stomach. Again seen are multiple gas-filled loops of small bowel in the visualized upper abdomen. No focal ai rspace opacities, pulmonary edema, pleural effusion or pneumothorax in the visualized lungs which exc ludes the apices. Cardiomediastinal silhouette is normal. Calcified subcarinal lymph nodes consistent with old granulomatous disease. Postoperative change of prior right mastectomy and right axillary ly mph node dissection with surgical clips at the right axilla. Vertebroplasties at T12 and L1. IMPRESSION: 1. Nasogastric tube in expected position within the stomach. Reviewed, dictated and finalized at location A.
--- NOTE | ~2022-11-20 | XR_ITS ---
XR_KUBGTUBINS_CR DATE: 11/20/2022 14:00 INDICATION: NG tube placement TECHNIQUE: Portable AP view on 11/20/2022 at 1356 hours COMPARISON: None FINDINGS: There is a nasogastric tube in the gastric fundus, the proximal side-port approximately 2 c m distal to the diaphragmatic hiatus. IMPRESSION: NG tube in gastric fundus Reviewed, dictated and finalized at [facility]. Reviewed, dictated and finalized at location A. IMPRESSION: NG tube in gastric fundus
--- NOTE | ~2022-11-20 | XR_ITS ---
Supine and upright views of the abdomen Clinical history: Small bowel obstruction COMPARISON: 11/21/2022 Findings: NG tube is in satisfactory position. Bowel minimally distended small bowel loops are presen t. No free air evident. No abnormal mass lesion or calcification is seen. Vertebroplasty cement noted at T12 and L1. Impression: NG tube in place with minimally distended small bowel loops. Reviewed, dictated and finalized at location . Impression: NG tube in place with minimally distended small bowel loops.
--- NOTE | 2022-11-20 11:11 | ED.ABDPAIN ---
HPI - Abdominal Pain General Chief Complaint: Abdominal Pain Stated Complaint: ABD PAIN Time Seen by Provider: 11/20/22 11:11 Source: patient and EMS Mode of arrival: EMS Limitations: no limitations History of Present Illness HPI narrative: 72 years old white female came by ambulance from home because of abdominal pain, nausea and vomiting, no BM for the last 60 days. Patient lives alone, history of hypertension, hyperlipidemia, hypothyroidism, coronary stents, currently on aspirin, patient is DNR. Patient also have history of cholecystectomy, appendectomy, hysterectomy and partial colon resection secondary to infected IUD and right mastectomy 1997, liver metastasis 2 years ago currently on chemotherapy. Related Data Home Medications Medication Instructions Recorded Confirmed fluticasone propionate 50 2 spray intranasal PRN PRN Allergy 03/21/19 09/30/22 mcg/actuation nasal Symptoms spray,suspension (Flonase Allergy Relief) aspirin 81 mg tablet,delayed 81 mg PO DAILY 06/18/19 09/30/22 release (Adult Low Dose Aspirin) rosuvastatin 40 mg tablet 40 mg PO DAILY 08/18/20 09/30/22 fexofenadine 180 mg tablet 180 mg PO DAILY 08/20/21 09/30/22 (Zakiya Allergy) anastrozole 1 mg tablet 1 mg PO DAILY 02/15/22 09/30/22 palbociclib 125 mg capsule 125 mg PO DAILY 02/15/22 09/30/22 (Ibrance) midodrine 2.5 mg tablet 2.5 mg PO BID 08/09/22 09/30/22 ferrous sulfate 325 mg (65 mg 325 mg PO DAILY 08/23/22 09/30/22 iron) tablet ondansetron 8 mg disintegrating 8 mg PO Q8H 08/23/22 09/30/22 tablet prochlorperazine maleate 10 mg 10 mg PO Q6H PRN Nausea 08/23/22 09/30/22 tablet (Compazine) calcium 500 mg tablet 500 mg PO TID 09/02/22 09/30/22 cyanocobalamin (vitamin B-12) 500 500 mcg PO DAILY 09/02/22 09/30/22 mcg tablet (Vitamin B-12) Allergies Allergy/AdvReac Type Severity Reaction Status Date / Time cinnamon Allergy Severe rash, Verified 09/02/22 09:43 blisters, hives, redness iodine Allergy Severe RASH, Verified 09/02/22 09:43 ITCH, SOB Sulfa (Sulfonamide Allergy Severe THROWS UP Verified 09/02/22 09:43 Antibiotics) BLOOD dexamethasone Allergy Intermediate rash, Verified 09/02/22 09:43 [From Maxitrol (neomycin blisters, sulf)] hives Fish Containing Products Allergy Intermediate HIVES,ITCHI Verified 09/02/22 09:43 NG ipratropium Allergy Intermediate rash, Verified 09/02/22 09:43 itchy, SOB neomycin Allergy Intermediate rash, Verified 09/02/22 09:43 [From Maxitrol (neomycin blisters, sulf)] hives nitrofurantoin Allergy Intermediate rash, Verified 09/02/22 09:43 [From Macrobid] itchy, SOB perfume Allergy Intermediate rash, Verified 09/02/22 09:43 hives, blisters polymyxin B Allergy Intermediate rash, Verified 09/02/22 09:43 [From Maxitrol (neomycin blisters, sulf)] hives shellfish derived Allergy Intermediate itch, Verified 09/02/22 09:43 rash, SOB wheat Allergy Intermediate CRAMPING, Verified 09/02/22 09:43 DIARRHEA amoxicillin Allergy Unknown Anaphylactic Verified 09/02/22 09:43 Shock soy Allergy Unknown SHUTS DOWN Verified 09/02/22 09:43 URINARY SYSTEM, BLOATS AND CANNOT URINATE latex AdvReac Itching Verified 09/02/22 09:43 laundry soap Tide and Gain Allergy Intermediate blisters, Uncoded 09/02/22 09:43 hives, itchiness, redness, rash Review of Systems Review of Systems: All systems reviewed & are unremarkable except as noted in HPI and below PMFSH Past Medical History Medical History (Updated 11/20/22 @ 12:44 by Jayda Mathews MD) Breast cancer Family History Family History Mother Patient's mother is Family history of diabetes mellitus in first degree relative Family history of lung cancer Family history of congestive heart failure Father Family history of malignant neoplasm,
--- NOTE | 2022-11-20 11:23 | PC.NURSE ---
Patient report received from DIPAK Albarran. All questions answered and care of patient assumed.
[2022-11-20] MEDS: MORPHINE SULFATE (*CRX) 4 MG/ML INJ IV PUSH (11:50)
[2022-11-20] MEDS: SODIUM CHLORIDE 0.9% IV 1,000 ML 999 ML IV CONT (11:51)
[2022-11-20 11:52] LABS: Appearance Urine Clear (Clear); Bacteria Urine None Seen /hpf; Bilirubin Urine Negative (Negative); Blood Urine 1+ (Negative); Color Urine Yellow (Yellow); Glucose Urine UA Trace mg/dL (Negative); Hyaline Casts Urine Present /lpf; Ketones Urine 1+ mg/dL (Negative); Leukocyte Esterase Ur Negative LEU/UL (Negative); Need Manual Microscopic Reviewed; Nitrate Urine Negative (Negative); Protein Urine 2+ mg/dL (Negative); Specific Grav Ur 1.021 (1.001-1.035); Squamous Epithelial Cell Urine Occasional /hpf (Few); WBC Urine 0-5 /hpf
[2022-11-20 11:54] LABS: Add Urine Microscopic? YES
[2022-11-20 12:07] LABS: Basophils Percent Auto 0.2 % (0.2-1.2); Eosinophils Percent Auto 0.4 % (0-4.4); Hematocrit 32.1 % (37.0-47.0); Hemoglobin 11.3 g/dL (12.0-15.0); Immature Granulocyte Absolute 0.05 K/mm3 (0.00-0.031); Immature Granulocyte Percent A 1.1 % (0-0.5); Lymphocytes Absolute Auto 0.56 K/mm3 (0.9-3.2); Mean Corpuscular HGB Conc 35.2 g/dl (32-36); Mean Corpuscular Hemoglobin 39.1 pg (26-34); Mean Corpuscular Volume 111.1 fl (80-100); Mean Platelet Volume 9.9 fl (7.4-10.4); Monocytes Absolute Auto 0.2 K/mm3 (0.1-0.6); Monocytes Percent Auto 4.5 % (2.6-8.5); Neutrophils Absolute Auto 3.8 K/mm3 (1.3-6.7); Neutrophils Percent Auto 81.8 % (45.5-73.1); Platelet Count Result 187 k/mm3 (150-375); Red Blood Count 2.89 M/mm3 (4.2-5.4); White Blood Count 4.7 K/mm3 (4.5-10.0)
[2022-11-20 12:16] LABS: Alanine Aminotransferase 27 U/L (6-35); Albumin Level 4.5 g/dL (3.5-5.1); Alkaline Phosphatase 62 U/L (38-126); Anion Gap 10 mmol/L (8-16); Aspartate Amino Transferase 36 U/L (14-36); Bilirubin,Total 1.6 mg/dL (0.2-1.3); Blood Urea Nitrogen 31 mg/dL (7-17); Calcium 8.3 mg/dL (8.4-10.2); Carbon Dioxide 26 mmol/L (22-30); Chloride 100 mmol/L (98-107); Estimated CRCL calculation 24 ml/min; Estimated Glomerular Filt Rate 44; Glucose 130 mg/dL (65-110); Lipase 77 U/L (23-300); Potassium 3.5 mmol/L (3.4-5.0); Sodium 136 mmol/L (137-145)
[2022-11-20 12:17] LABS: Lactic Acid Reflex 2.3 mmol/L (0.7-2.0)
[2022-11-20 12:18] LABS: Macrocytosis 1+ (NORMAL); Platelet Estimate Adequate (Adequate); Schistocytes None Seen (NORMAL)
[2022-11-20] MEDS: ONDANSETRON INJ 4 MG/2 ML VIAL IV PUSH ×3 (14:11→23:04)
[2022-11-20] MEDS: SODIUM CHLORIDE 0.9% IV 1,000 ML 150 ML IV CONT (14:13)
--- NOTE | 2022-11-20 14:25 | PM.IMHP ---
H&P: HPI History of Present Illness Date/Time: 11/20/22 16:00 Chief Complaint: Abdominal pain. Narrative: This is a very pleasant 72-year-old female with history of hypertension, hyperlipidemia, coronary artery disease, chronic obstructive pulmonary disease, hypothyroidism, gastroesophageal reflux disease, breast cancer in 1997 with recent discovery of metastatic disease to liver for which she is undergoing chemotherapy, chronic kidney disease, and history of multiple abdominal surgeries who presented to the emergency department via EMS from home for evaluation of abdominal pain. The patient provides the following history. On Monday evening she developed sudden onset of intense pain throughout the abdomen followed by multiple episodes of nonbilious and nonbloody emesis. Shortly thereafter she reports passing a very large amount of stool which was formed. She felt a bit better thereafter however she has continued to have intermittent symptoms of this abdominal pain associated with bloating, nausea, and vomiting. She has not had a bowel movement since Monday. She endorses chills but has not had fever or sweats. She denies chest pain shortness a breath. On arrival to the emergency department her vital signs were stable. CT scan showed a distal small-bowel obstruction possibly due to adhesions or internal hernia. NG tube has been inserted and she is being admitted for further treatment and surgery consultation. Review of Systems Review of Systems: Twelve systems were reviewed and are negative except for as per HPI put PMFSH Past Medical History Medical History (Updated 11/20/22 @ 22:45 by Danna Rose PA-C) Breast cancer Breast cancer metastasized to liver Cancer of right breast (1997) Status post mastectomy and chemo radiation. Metastatic disease to liver discovered in 2022. Chronic anemia Chronic kidney disease Chronic obstructive pulmonary disease Coronary artery disease Depression with anxiety Gastroesophageal reflux disease Hyperlipidemia Hypertension Hypothyroidism Surgical History Surgical History (Updated 11/20/22 @ 22:41 by Danna Rose PA-C) History of appendectomy History of bladder repair surgery History of cardiac catheterization History of cholecystectomy (2012) History of coronary artery stent placement History of resection of small bowel (1979) History of right mastectomy (1997) History of sinus surgery History of tonsillectomy Family History Family History Mother Patient's mother is Family history of diabetes mellitus in first degree relative Family history of lung cancer Family history of congestive heart failure Father Family history of malignant neoplasm, Onset Age: 73 Patient's father is Social History Social History (Updated 11/20/22 @ 22:42 by Danna Rose PA-C) Social History: Surrogate medical decision maker: Dixon Tomlinson, son. Code status: Do not resuscitate. Smoking packs per day: 1 Smoking cigarettes per day: 20.0 Years smoked: 50 Smoking pack-years: 50.00 Smoking status: Current every day smoker Tobacco type: cigarettes Second hand tobacco smoke exposure: Yes Additional smoking assessment comments: Down to 1/4 a pack of cigarettes a day. Alcohol intake: never Substance use: never Substance use type: does not use Lack of Transportation: No Lack of Food: Never True Current Housing: I Have Housing Concerned About Future Housing: No Difficulty Paying Gas/Electric Bills: No Difficulty Paying for Meds: No Currently Unemployed: No Education: Don't Know Difficulty w/ Childcare or Family Care: No Spiritual care concerns: Yes Meds Home Medications and Allergies Home Medications Medication Instructions Recorded Confirmed Type fluticasone propionate 50 2 spray intranasal PRN PRN Allergy 03/21/19 11/20/22 History
[2022-11-20 15:05] LABS: Reflex Lactic Acid Yes or No Add Lactic
--- NOTE | 2022-11-20 15:17 | PC.NURSE ---
Talked to senior technical manager at this time for help drawing the pt's lactic. Cady Cantrell stated she will be here whenever she gets time because she is the only one here
--- NOTE | 2022-11-20 16:18 | ADMGEN ---
This patient, Vania Betancourt, was admitted to Medical Room 345-01. Patient/family oriented to hospital policies and general routines including ID bracelet, bed and alarms, visiting hours, pain management, procedures, bathroom and other care routines, personal items, smoking policy, room service/diet, and visiting hours. Information on how to activate the Rapid Response Team has been discussed. Patient/Family are encouraged to report perceived risks to care and to ask questions if they do not understand what they are told or what they should do.
[2022-11-20] MEDS: MORPHINE SULFATE (*CRX) 2 MG/ML INJ IV PUSH ×2 (18:17→23:04)
[2022-11-20 19:30] LABS: Lactic Acid 0.7 mmol/L (0.7-2.0)
[2022-11-21 04:00] VITALS: BP 146/62; PULSE 87; RESP 16; TEMP 36.8; O2SAT 96
[2022-11-21 05:52] LABS: Hematocrit 29.3 % (37.0-47.0); Hemoglobin 9.9 g/dL (12.0-15.0); Mean Corpuscular HGB Conc 33.8 g/dl (32-36); Mean Corpuscular Hemoglobin 38.5 pg (26-34); Mean Platelet Volume 10.4 fl (7.4-10.4); Platelet Count Result 143 k/mm3 (150-375); Red Blood Count 2.57 M/mm3 (4.2-5.4); Red Cell Distribution Width 12.9 % (11.5-14.5); White Blood Count 3.8 K/mm3 (4.5-10.0)
[2022-11-21 06:03] LABS: Anion Gap 10 mmol/L (8-16); Blood Urea Nitrogen 27 mg/dL (7-17); Calcium 7.4 mg/dL (8.4-10.2); Carbon Dioxide 23 mmol/L (22-30); Chloride 104 mmol/L (98-107); Estimated CRCL calculation 27 ml/min; Estimated Glomerular Filt Rate 49; Glucose 92 mg/dL (65-110); Magnesium 2.3 mg/dL (1.6-2.3); Potassium 3.2 mmol/L (3.4-5.0); Sodium 137 mmol/L (137-145)
[2022-11-21] MEDS: ONDANSETRON INJ 4 MG/2 ML VIAL IV PUSH (07:24)
[2022-11-21] MEDS: PANTOPRAZOLE SODIUM IV 40 MG VIAL IV PUSH ×2 (07:25→21:51)
[2022-11-21 08:00] VITALS: O2SAT 96
[2022-11-21] MEDS: SODIUM CHLORIDE 0.9% IV 1,000 ML 125 ML IV CONT ×2 (09:34→21:56)
--- NOTE | 2022-11-21 10:33 | PC.NURSE ---
Shi RAMACHANDRAN notified of patient npo and has ng tube so am po meds not given
[2022-11-21] MEDS: POTASSIUM CHLORIDE INJ 40 MEQ in SODIUM CHLORIDE 0.9% IV 500 ML 130 MEQ IVPB (10:40)
--- NOTE | 2022-11-21 10:55 | PM.CNGS ---
Assessment and Plan Assessment and plan (1) Small bowel obstruction: Code(s): K56.609 - Unspecified intestinal obstruction, unspecified as to partial versus complete obstruction Status: Acute Assessment and Plan: CT reviewed and discussed with the patient in detail. There is evidence of a distal small-bowel obstruction. She has had multiple previous abdominal surgeries that could account for adhesions as a potential cause. CT also suggests possible internal hernia. She has not had much improvement since NG placement. I am concerned her NG tube may not be in good position, therefore I will order a KUB this morning to check placement. Will also start IV fluids and replace her potassium this morning. Continue conservative management at this time with NG tube decompression, bowel rest, IV fluids, and analgesics as needed. We will continue to monitor with serial abdominal exams and imaging. Discussed with the patient that she would be a poor surgical candidate given her metastatic breast cancer and multiple other comorbidities, but she may eventually need exploratory surgery if her bowel obstruction does not resolve with conservative measures. Thank you for allowing us to see the patient consultation will continue to follow along. (2) Breast cancer metastasized to liver: Code(s): C50.919 - Malignant neoplasm of unspecified site of unspecified female breast; C78.7 - Secondary malignant neoplasm of liver and intrahepatic bile duct Status: Acute (3) Chronic obstructive pulmonary disease: Code(s): J44.9 - Chronic obstructive pulmonary disease, unspecified Status: Acute (4) Tobacco abuse: Code(s): Z72.0 - Tobacco use Status: Acute (5) Chronic kidney disease: Code(s): N18.9 - Chronic kidney disease, unspecified Status: Acute (6) Chronic anemia: Code(s): D64.9 - Anemia, unspecified Status: Acute (7) Hypertension: Code(s): I10 - Essential (primary) hypertension Status: Acute Plan I have discussed the patient's case and plan of care with Dr. Koenig. History of Present Illness Consult details Consult date: 11/21/22 Reason for consult: other (Small-bowel obstruction) Requesting physician: Jayda Mathews MD Narrative: This is a 72-year-old woman with multiple medical problems who presented to the ER for evaluation of abdominal pain x 6 days. She reports last Monday evening she developed lower abdominal pain that radiated across her entire abdomen. Her abdominal pain would come waves. Shortly after the pain began, she developed nausea and had multiple episodes of vomiting. She kept going to the bathroom feeling like she needed to move her bowels, but would feel lightheaded and go back to bed. She eventually had multiple formed bowel movements in the night and her symptoms improved. Her abdominal pain and vomiting returned the next evening and persisted over the next few days. She denies being able to keep food or liquids down since last Monday. She has not moved her bowels since last Monday either. She has not been able to take her home medications for the past 2 days due to the vomiting. She reports having similar episodes of vomiting and abdominal pain that typically resolve after her bowels move home. She feels she gets constipated fairly frequently. This has been going on for years. Since her symptoms did not improve, she presented to the ER yesterday. CT scan of the abdomen and pelvis showed a distal small-bowel obstruction possibly due to adhesions or internal hernia. She was admitted to the hospitalist service. NG tube was placed. Our service was consulted for the small-bowel obstruction. She is now seen this morning. NG tube with minimal output. Patient is still feeling nauseated and reports trying to vomit with NG tube in place. It appears the tape is not well secured to the tube on my evaluation. Patient denies flatus and last BM was last
[2022-11-21] MEDS: PROMETHAZINE HCL 25 MG/ML AMPUL 12.5 MG IV PUSH ×2 (11:55→17:42)
[2022-11-21 11:59] VITALS: BMI 17.4
--- NOTE | 2022-11-21 14:05 | PM.IMPN ---
Progress Note: A&P Assessment and Plan (1) Small bowel obstruction: Code(s): K56.609 - Unspecified intestinal obstruction, unspecified as to partial versus complete obstruction Status: Acute Assessment and Plan: CT scan showed evidence of a distal small-bowel obstruction which may be due to internal hernia or adhesions. She has had multiple abdominal surgeries. NG tube has been inserted for decompression. She will remain on bowel rest. Antiemetics and analgesics available as needed. Surgery has been consulted and their input is appreciated. (2) Chronic kidney disease: Code(s): N18.9 - Chronic kidney disease, unspecified Status: Chronic Assessment and Plan: Kidney function improving with IV fluids. Continue to monitor. (3) Chronic anemia: Code(s): D64.9 - Anemia, unspecified Status: Chronic Assessment and Plan: H&H is stable. Continue to monitor. Transfuse if hemoglobin drops below 7. (4) Breast cancer metastasized to liver: Code(s): C50.919 - Malignant neoplasm of unspecified site of unspecified female breast; C78.7 - Secondary malignant neoplasm of liver and intrahepatic bile duct Status: Chronic Assessment and Plan: Takes p.o. chemotherapy pills. Advised to bring from home in order to continue them. (5) Hypothyroidism: Code(s): E03.9 - Hypothyroidism, unspecified Status: Chronic Assessment and Plan: continue home medications once able to tolerate p.o.. (6) Chronic obstructive pulmonary disease: Code(s): J44.9 - Chronic obstructive pulmonary disease, unspecified Status: Chronic Assessment and Plan: not in active exacerbation (7) Tobacco abuse: Code(s): Z72.0 - Tobacco use Status: Chronic Assessment and Plan: She has cut back on smoking and declines the need for nicotine patch. (8) Hypertension: Code(s): I10 - Essential (primary) hypertension Status: Chronic Assessment and Plan: continue home medicine once able to tolerate p.o. hydralazinein p.r.n. with parameters Subjective Date/time seen: 11/21/22 14:05 Interval history: Patient continues to have nausea. She did have episode of vomiting this morning. She denies abdominal pain. Did state that she had some gas but not very much. She may need TPN due to not being able to eat or drink for approximately 1 week. Exam Narrative: GENERAL: Comfortable, no acute distress, cachectic HENMT: moist mucous membranes EYES: EOM intact b/l NECK: no lymphadenopathy RESPIRATORY: clear to auscultation CARDIO: RRR GI: soft, nontender, bowel sounds absent SKIN: no rashes EXTREMITIES: no edema, redness or tenderness Objective Data Vital Signs Vital Signs: Vital Signs - 24 hr 11/20/22 14:15 11/20/22 14:16 11/20/22 14:17 Temperature Pulse Rate 91 91 89 Respiratory Rate 14 13 11 L Blood Pressure 130/55 L Pulse Oximetry 95 96 95 Oxygen Delivery 11/20/22 14:30 11/20/22 14:45 11/20/22 14:46 Temperature Pulse Rate 89 86 86 Respiratory Rate 15 16 19 Blood Pressure 147/54 H Pulse Oximetry 95 95 95 Oxygen Delivery 11/20/22 14:47 11/20/22 15:55 11/20/22 16:43 Temperature 98.4 F Pulse Rate 85 88 89 Respiratory Rate 18 17 16 Blood Pressure 134/69 150/63 H Pulse Oximetry 96 93 98 Oxygen Delivery 11/20/22 17:50 11/20/22 20:00 11/20/22 20:00 Temperature 98.2 F Pulse Rate 89 94 Respiratory Rate 16 18 Blood Pressure 164/61 H Pulse Oximetry 98 97 98 Oxygen Delivery Room Air Room Air 11/21/22 04:00 11/21/22 08:00 Temperature 98.3 F Pulse Rate 87 Respiratory Rate 16 Blood Pressure 146/62 H Pulse Oximetry 96 96 Oxygen Delivery Room Air Intake/Output Intake/Output: Intake & Output 11/18/22 11/19/22 11/20/22 11/21/22 23:59 23:59 23:59 23:59 Intake Total 1000 Output Total 600 Balance 1000 -600 Meds/Results Me
[2022-11-21 15:00] VITALS: BP 150/54; PULSE 90; RESP 18; TEMP 37.1; O2SAT 97
[2022-11-21] MEDS: MORPHINE SULFATE (*CRX) 2 MG/ML INJ IV PUSH (17:38)
[2022-11-21 20:00] VITALS: BP 160/51; PULSE 97; RESP 18; TEMP 37.1; O2SAT 95; O2SAT 97
[2022-11-22] VITALS: BP 162/59; PULSE 87; RESP 16; TEMP 36.9; O2SAT 97
[2022-11-22 04:00] VITALS: BP 165/56; PULSE 93; RESP 18; TEMP 36.9; O2SAT 96
[2022-11-22] MEDS: PROMETHAZINE HCL 25 MG/ML AMPUL 12.5 MG IV PUSH (05:44)
[2022-11-22] MEDS: MORPHINE SULFATE (*CRX) 2 MG/ML INJ IV PUSH ×3 (05:44→19:48)
[2022-11-22] MEDS: LEVOTHYROXINE SODIUM INJ 100 MCG/5 ML VIAL 37.5 MCG IV PUSH (05:44)
[2022-11-22 05:54] LABS: Hemoglobin 8.7 g/dL (12.0-15.0); Mean Corpuscular HGB Conc 33.5 g/dl (32-36); Mean Corpuscular Hemoglobin 38.7 pg (26-34); Mean Corpuscular Volume 115.6 fl (80-100); Mean Platelet Volume 10.4 fl (7.4-10.4); Platelet Count Result 107 k/mm3 (150-375); Red Blood Count 2.25 M/mm3 (4.2-5.4); Red Cell Distribution Width 12.8 % (11.5-14.5); White Blood Count 2.8 K/mm3 (4.5-10.0)
[2022-11-22 06:01] LABS: Alanine Aminotransferase 18 U/L (6-35); Albumin Level 3.1 g/dL (3.5-5.1); Alkaline Phosphatase 49 U/L (38-126); Anion Gap 10 mmol/L (8-16); Aspartate Amino Transferase 23 U/L (14-36); Bilirubin,Total 1.2 mg/dL (0.2-1.3); Blood Urea Nitrogen 23 mg/dL (7-17); Carbon Dioxide 19 mmol/L (22-30); Chloride 108 mmol/L (98-107); Estimated CRCL calculation 30 ml/min; Estimated Glomerular Filt Rate 54; Glucose 56 mg/dL (65-110); Potassium 3.3 mmol/L (3.4-5.0); Sodium 137 mmol/L (137-145)
[2022-11-22] MEDS: DEXTROSE 5%/0.45% SOD CHL 1,000 ML 100 ML IV CONT ×2 (06:16→17:26)
[2022-11-22 07:03] LABS: Glucose Point of Care 75 mg/dl (65-105)
[2022-11-22] MEDS: ONDANSETRON INJ 4 MG/2 ML VIAL IV PUSH (09:02)
[2022-11-22] MEDS: ANASTROZOLE (*CHEMO) 1 MG TABLET PO (09:02)
[2022-11-22] MEDS: PANTOPRAZOLE SODIUM IV 40 MG VIAL IV PUSH ×2 (09:13→19:47)
--- NOTE | 2022-11-22 09:16 | P.CDI_ITS ---
CDI Query Clarification Request BMI 17.4 Nutritional Diagnostic Statement Moderate Protein Calorie Malnutrition as related to increased protein needs in the setting of acute disease or injury ( Small Bowel Obstruction) as evidenced by < 75% of EER for 7 days and significant weight loss of 7% in the past week. Please refer to the comprehensive nutrition assessment for further information. Please clarify severity of protein calorie malnutrition if know: * Mild * Moderate * Severe * Other/Unspecified <Annalisa Rubalcava RN - Last Filed: 11/22/22 09:22> Clarified Diagnosis Clarified Diagnosis: moderate <Shi Bhatia PA-C - Last Filed: 11/22/22 11:19>
--- NOTE | 2022-11-22 09:42 | PM.PNGS ---
Progress Note: A&P Assessment and Plan (1) Small bowel obstruction: Code(s): K56.609 - Unspecified intestinal obstruction, unspecified as to partial versus complete obstruction Status: Acute Assessment and Plan: Plain films look better today. Some signs of clinical improvement, but still not much bowel function. Given her iodine allergy, we will pre-medicate her today and proceed with a water-soluble small bowel follow through tomorrow to further evaluate the small bowel obstruction. Continue NG decompression, bowel rest, and IV fluids. (2) Breast cancer metastasized to liver: Code(s): C50.919 - Malignant neoplasm of unspecified site of unspecified female breast; C78.7 - Secondary malignant neoplasm of liver and intrahepatic bile duct Status: Chronic (3) Chronic obstructive pulmonary disease: Code(s): J44.9 - Chronic obstructive pulmonary disease, unspecified Status: Chronic (4) Tobacco abuse: Code(s): Z72.0 - Tobacco use Status: Chronic (5) Chronic kidney disease: Code(s): N18.9 - Chronic kidney disease, unspecified Status: Chronic (6) Hypertension: Code(s): I10 - Essential (primary) hypertension Status: Chronic Plan I have discussed the patient's case and plan of care with Dr. Koenig. Subjective Subjective Date/Time Seen: 11/22/22 08:42 Patient reports: feels better, pain is less and no bowel movement Interval history: Patient seen this morning. She complains of discomfort from the NG. Her abdominal pain has improved some and she is no longer feeling nauseous. She did pass flatus some yesterday, but not yet today. No BM. No other complaints at this time. NG tube in place confirmed by x-ray but minimal output. Review of Systems Review of Systems: ROS unchanged except as mentioned in HPI Exam Const: General: no acute distress, awake and uncomfortable Orientation/consciousness: patient oriented x3 GI: Inspection: other (abdomen is less distended and softer today) GI Palp: Yes Soft to palpation, Yes Tenderness to palpation present (GI) (diffusely tender), Yes Guarding due to palpation present (GI) (voluntary guarding in the lower abdomen) and No Rebound tenderness present Auscultation: Hypoactive bowel sounds present Objective Data Vital Signs Vital Signs: Vital Signs - 24 hr 11/21/22 15:00 11/21/22 20:00 11/21/22 20:00 Temperature 98.8 F 98.8 F Pulse Rate 90 97 Respiratory Rate 18 18 Blood Pressure 150/54 H 160/51 H Pulse Oximetry 97 95 97 Oxygen Delivery Room Air 11/22/22 00:00 11/22/22 04:00 11/22/22 08:00 Temperature 98.5 F 98.5 F Pulse Rate 87 93 Respiratory Rate 16 18 Blood Pressure 162/59 H 165/56 H Pulse Oximetry 97 96 Oxygen Delivery Room Air Intake/Output Intake/Output: Intake & Output 11/19/22 11/20/22 11/21/22 11/22/22 23:59 23:59 23:59 23:59 Intake Total 1000 1000 50 Output Total 1200 Balance 1000 -200 50 Meds/Results Medications: Active Medications Generic Name Dose Route Start Last Admin Trade Name Freq PRN Reason Stop Dose Admin Anastrozole 1 mg 11/21/22 09:00 11/22/22 09:02 Anastrozole (*Chemo) 1 Mg Tablet PO 1 mg DAILY MICHAEL Administration Aspirin 81 mg 11/21/22 09:00 11/22/22 09:12 Aspirin 81 Mg Enteric Tablet PO Not Given DAILY MICHAEL Bupropion HCl 300 mg 11/21/22 09:00 11/22/22 09:12 Bupropion Hcl Xl (24 Hr) 150 Mg Tabcr PO Not Given QAM MICHAEL Calcium Carbonate 500 mg 11/21/22 09:00 11/22/22 09:12 Calcium Carbonate (Oscal) 500 Mg Tablet PO Not Given TID MICHAEL Clonazepam 0.5 mg 11/21/22 21:00 11/22/22 06:17 Clonazepam (*Crx) 0.5 Mg Tablet PO Not Given HS MICHAEL Cyanocobalamin 500 mcg 11/21/22 09:00 11/22/22 09:12 Cyanocobalamin 500 Mcg Tablet PO Not Given DAILY MICHAEL Dextrose 12.5 gm 11/22/22 06:08 Dextrose 50% 25 Gm/50 Ml Syringe IV PUSH PRN PRN Hypoglycemia Protocol
--- NOTE | 2022-11-22 10:07 | PC.NURSE ---
Per pt. She is not sure about the dexamethasone allergy. Upon questioning pt has had prednisone and similar medications in the past. Including for pre-treatment prior to a scan. Surgery informed.
--- NOTE | 2022-11-22 11:19 | PM.IMPN ---
Progress Note: A&P Assessment and Plan (1) Small bowel obstruction: Code(s): K56.609 - Unspecified intestinal obstruction, unspecified as to partial versus complete obstruction Status: Acute Assessment and Plan: CT scan showed evidence of a distal small-bowel obstruction which may be due to internal hernia or adhesions. She has had multiple abdominal surgeries. NG tube has been inserted for decompression. She will remain on bowel rest. Antiemetics and analgesics available as needed. Surgery has been consulted and their input is appreciated. Small-bowel follow-through scheduled for tomorrow. (2) Chronic kidney disease: Code(s): N18.9 - Chronic kidney disease, unspecified Status: Chronic Assessment and Plan: Kidney function improving with IV fluids. Continue to monitor. (3) Chronic anemia: Code(s): D64.9 - Anemia, unspecified Status: Chronic Assessment and Plan: H&H is stable. Continue to monitor. Transfuse if hemoglobin drops below 7. (4) Breast cancer metastasized to liver: Code(s): C50.919 - Malignant neoplasm of unspecified site of unspecified female breast; C78.7 - Secondary malignant neoplasm of liver and intrahepatic bile duct Status: Chronic Assessment and Plan: Takes p.o. chemotherapy pills. Advised to bring from home in order to continue them. (5) Hypothyroidism: Code(s): E03.9 - Hypothyroidism, unspecified Status: Chronic Assessment and Plan: continue home medications once able to tolerate p.o.. (6) Chronic obstructive pulmonary disease: Code(s): J44.9 - Chronic obstructive pulmonary disease, unspecified Status: Chronic Assessment and Plan: not in active exacerbation (7) Tobacco abuse: Code(s): Z72.0 - Tobacco use Status: Chronic Assessment and Plan: She has cut back on smoking and declines the need for nicotine patch. (8) Hypertension: Code(s): I10 - Essential (primary) hypertension Status: Chronic Assessment and Plan: continue home medicine once able to tolerate p.o. hydralazinein p.r.n. with parameters (9) Moderate protein malnutrition: Code(s): E44.0 - Moderate protein-calorie malnutrition Status: Acute Assessment and Plan: Registered dietitian recommending advancing diet as tolerated when she can tolerated diet. Ensure compact b.i.d. providing to 20 kcals and 9 g protein when diet is resumed. Subjective Date/time seen: 11/22/22 11:19 Interval history: Patient's nausea has improved. She still has some abdominal tenderness palpation. She has not had any nausea or vomiting. She did have some gas last night. Eye exam she does have some bowel sounds. Plan for small-bowel follow-through tomorrow. Exam Narrative: GENERAL: Comfortable, no acute distress, cachectic HENMT: moist mucous membranes EYES: EOM intact b/l NECK: no lymphadenopathy RESPIRATORY: clear to auscultation CARDIO: RRR GI: soft, nontender, Hypoactive bowel sounds SKIN: no rashes EXTREMITIES: no edema, redness or tenderness Objective Data Vital Signs Vital Signs: Vital Signs - 24 hr 11/21/22 15:00 11/21/22 20:00 11/21/22 20:00 Temperature 98.8 F 98.8 F Pulse Rate 90 97 Respiratory Rate 18 18 Blood Pressure 150/54 H 160/51 H Pulse Oximetry 97 95 97 Oxygen Delivery Room Air 11/22/22 00:00 11/22/22 04:00 11/22/22 08:00 Temperature 98.5 F 98.5 F Pulse Rate 87 93 Respiratory Rate 16 18 Blood Pressure 162/59 H 165/56 H Pulse Oximetry 97 96 Oxygen Delivery Room Air Intake/Output Intake/Output: Intake & Output 11/19/22 11/20/22 11/21/22 11/22/22 23:59 23:59 23:59 23:59 Intake Total 1000 1000 50 Output Total 1200 Balance 1000 -200 50 Meds/Results Medications: Active Medications Generic Name Dose Route Start Last Admin Trade Name Freq PRN Reason Stop Dose Admin Marcela
[2022-11-22] MEDS: POTASSIUM CHLORIDE INJ 40 MEQ in SODIUM CHLORIDE 0.9% IV 500 ML 130 MEQ IVPB (11:30)
[2022-11-22 15:00] VITALS: BP 170/56; PULSE 90; RESP 16; TEMP 36.1; O2SAT 98
[2022-11-22] MEDS: HYDROCORTISONE SODIUM SUCCINATE 100 MG/2 ML VIAL 200 MG IV PUSH (19:48)
[2022-11-22 19:51] VITALS: BP 172/54; PULSE 95; RESP 16; TEMP 36.5; O2SAT 97
[2022-11-22 23:38] VITALS: BP 147/81; PULSE 89; RESP 16; TEMP 37; O2SAT 96
[2022-11-23] MEDS: HYDROCORTISONE SODIUM SUCCINATE 100 MG/2 ML VIAL 200 MG IV PUSH ×2 (02:16→08:06)
[2022-11-23] MEDS: MORPHINE SULFATE (*CRX) 2 MG/ML INJ IV PUSH (02:16)
[2022-11-23 04:00] VITALS: BP 147/55; PULSE 84; RESP 16; TEMP 36.4; O2SAT 98
[2022-11-23 05:55] LABS: Hematocrit 23.7 % (37.0-47.0); Hemoglobin 8.4 g/dL (12.0-15.0); Immature Platelet Fraction Pct 3.9 % (0.9-11.2); Mean Corpuscular HGB Conc 35.4 g/dl (32-36); Mean Corpuscular Hemoglobin 38.7 pg (26-34); Mean Corpuscular Volume 109.2 fl (80-100); Mean Platelet Volume 10.6 fl (7.4-10.4); Platelet Count Result 98 k/mm3 (150-375); Red Blood Count 2.17 M/mm3 (4.2-5.4); Red Cell Distribution Width 12.2 % (11.5-14.5)
[2022-11-23 06:36] LABS: Anion Gap 6 mmol/L (8-16); Blood Urea Nitrogen 14 mg/dL (7-17); Calcium 6.6 mg/dL (8.4-10.2); Carbon Dioxide 23 mmol/L (22-30); Chloride 102 mmol/L (98-107); Estimated CRCL calculation 42 ml/min; Estimated Glomerular Filt Rate > 60; Glucose 221 mg/dL (65-110); Potassium 3.6 mmol/L (3.4-5.0); Sodium 131 mmol/L (137-145)
[2022-11-23] MEDS: LEVOTHYROXINE SODIUM INJ 100 MCG/5 ML VIAL 37.5 MCG IV PUSH (08:04)
[2022-11-23] MEDS: PANTOPRAZOLE SODIUM IV 40 MG VIAL IV PUSH ×2 (08:04→20:50)
[2022-11-23] MEDS: diphenhydrAMINE HCl INJ 50 MG/ML VIAL IV PUSH (08:05)
--- NOTE | 2022-11-23 13:15 | PM.IMPN ---
Progress Note: A&P Assessment and Plan (1) Small bowel obstruction: Code(s): K56.609 - Unspecified intestinal obstruction, unspecified as to partial versus complete obstruction Status: Acute Assessment and Plan: CT scan showed evidence of a distal small-bowel obstruction which may be due to internal hernia or adhesions. She has had multiple abdominal surgeries. NG tube removed. Clear liquids Sm bowel follow through was normal Antiemetics and analgesics available as needed. Surgery has been consulted and their input is appreciated. Multiple bowel movements noted (2) Chronic kidney disease: Code(s): N18.9 - Chronic kidney disease, unspecified Status: Chronic Assessment and Plan: Kidney function improving with IV fluids. Continue to monitor. Backl to normal 14/0.80 Stable Stable 2 (3) Chronic anemia: Code(s): D64.9 - Anemia, unspecified Status: Chronic Assessment and Plan: H&H is stable. Continue to monitor. Transfuse if hemoglobin drops below 7. Current H/H 8.4/23.7 H/H 9.9/29.3 upon admission Trend (4) Breast cancer metastasized to liver: Code(s): C50.919 - Malignant neoplasm of unspecified site of unspecified female breast; C78.7 - Secondary malignant neoplasm of liver and intrahepatic bile duct Status: Chronic Assessment and Plan: Takes p.o. chemotherapy pills. Advised to bring from home in order to continue them. (5) Hypothyroidism: Code(s): E03.9 - Hypothyroidism, unspecified Status: Chronic Assessment and Plan: continue home medications once able to tolerate p.o.. (6) Chronic obstructive pulmonary disease: Code(s): J44.9 - Chronic obstructive pulmonary disease, unspecified Status: Chronic Assessment and Plan: not in active exacerbation (7) Tobacco abuse: Code(s): Z72.0 - Tobacco use Status: Chronic Assessment and Plan: She has cut back on smoking and declines the need for nicotine patch. (8) Hypertension: Code(s): I10 - Essential (primary) hypertension Status: Chronic Assessment and Plan: continue home medicine once able to tolerate p.o. hydralazinein p.r.n. with parameters (9) Moderate protein malnutrition: Code(s): E44.0 - Moderate protein-calorie malnutrition Status: Acute Assessment and Plan: Registered dietitian recommending advancing diet as tolerated when she can tolerated diet. Ensure compact b.i.d. providing to 20 kcals and 9 g protein when diet is resumed. Time Spent With Patient Time: 41 minutes Time with patient: Greater than 35 minutes Subjective Date/time seen: 11/23/22 1315 Interval history: patient went down for her small-bowel follow-through. Patient has not had a break from having multiple bowel movements since then. NG removed and patient started on clear liquids. currently she denies any chest pain, shortness a breath, nausea, vomiting, diarrhea constipation. Objective Data Vital Signs Vital Signs: Vital Signs - 24 hr 11/22/22 19:51 11/22/22 23:38 11/23/22 04:00 Temperature 97.7 F 98.6 F 97.6 F Pulse Rate 95 89 84 Respiratory Rate 16 16 16 Blood Pressure 172/54 H 147/81 H 147/55 H Pulse Oximetry 97 96 98 Oxygen Delivery 11/23/22 08:00 11/23/22 14:00 Temperature 97.6 F Pulse Rate 91 Respiratory Rate 16 Blood Pressure 133/46 L Pulse Oximetry 100 Oxygen Delivery Room Air Intake/Output Intake/Output: Intake & Output 11/20/22 11/21/22 11/22/22 11/23/22 23:59 23:59 23:59 23:59 Intake Total 1000 1000 1570 120 Output Total 1200 1100 1400 Balance 1000 -200 470 -1280 Meds/Results Medications: Active Medications Generic Name Dose Route Start Last Admin Trade Name Freq PRN Reason Stop Dose Admin Anastrozole 1 mg 11/21/22 09:00 11/22/22 09:02 Anastrozole (*Chemo) 1 Mg Tablet PO 1 mg DAILY MICHAEL Administration Aspirin 81 mg 0
[2022-11-23 14:00] VITALS: BP 133/46; PULSE 91; RESP 16; TEMP 36.4; O2SAT 100
--- NOTE | 2022-11-23 14:49 | PM.PNGS ---
Progress Note: A&P Assessment and Plan (1) Small bowel obstruction: Code(s): K56.609 - Unspecified intestinal obstruction, unspecified as to partial versus complete obstruction Status: Acute Assessment and Plan: Small-bowel follow-through normal Will remove NG tube Start clear liquids and advanced diet as tolerated (2) Breast cancer metastasized to liver: Code(s): C50.919 - Malignant neoplasm of unspecified site of unspecified female breast; C78.7 - Secondary malignant neoplasm of liver and intrahepatic bile duct Status: Chronic (3) Chronic obstructive pulmonary disease: Code(s): J44.9 - Chronic obstructive pulmonary disease, unspecified Status: Chronic (4) Tobacco abuse: Code(s): Z72.0 - Tobacco use Status: Chronic (5) Chronic kidney disease: Code(s): N18.9 - Chronic kidney disease, unspecified Status: Chronic (6) Hypertension: Code(s): I10 - Essential (primary) hypertension Status: Chronic Plan I have discussed the patient's case and plan of care with Dr. Koenig. Subjective Subjective Date/Time Seen: 11/23/22 14:49 Patient reports: flatus and bowel movement Interval history: Patient seen after her small bowel series. She has had multiple bowel movements. Denies any bloating, abdominal pain, nausea, or vomiting. Overall feeling much better. Exam Const: General: no acute distress and awake Orientation/consciousness: patient oriented x3 GI: Inspection: non-distended GI Palp: Yes Soft to palpation, No Tenderness to palpation present (GI) and No Guarding due to palpation present (GI) Auscultation: normal bowel sounds Objective Data Vital Signs Vital Signs: Vital Signs - 24 hr 11/22/22 15:00 11/22/22 19:51 11/22/22 23:38 Temperature 96.9 F L 97.7 F 98.6 F Pulse Rate 90 95 89 Respiratory Rate 16 16 16 Blood Pressure 170/56 H 172/54 H 147/81 H Pulse Oximetry 98 97 96 Oxygen Delivery 11/23/22 04:00 11/23/22 08:00 Temperature 97.6 F Pulse Rate 84 Respiratory Rate 16 Blood Pressure 147/55 H Pulse Oximetry 98 Oxygen Delivery Room Air Intake/Output Intake/Output: Intake & Output 11/20/22 11/21/22 11/22/22 11/23/22 23:59 23:59 23:59 23:59 Intake Total 1000 1000 1570 Output Total 1200 1100 1400 Balance 1000 -200 470 -1400 Meds/Results Medications: Active Medications Generic Name Dose Route Start Last Admin Trade Name Erika PRN Reason Stop Dose Admin Anastrozole 1 mg 11/21/22 09:00 11/22/22 09:02 Anastrozole (*Chemo) 1 Mg Tablet PO 1 mg DAILY MICHAEL Administration Aspirin 81 mg 11/21/22 09:00 11/22/22 09:12 Aspirin 81 Mg Enteric Tablet PO Not Given DAILY MICHAEL Bupropion HCl 300 mg 11/21/22 09:00 11/22/22 09:12 Bupropion Hcl Xl (24 Hr) 150 Mg Tabcr PO Not Given QAM MICHAEL Calcium Carbonate 500 mg 11/21/22 09:00 11/23/22 13:12 Calcium Carbonate (Oscal) 500 Mg Tablet PO Not Given TID MICHAEL Clonazepam 0.5 mg 11/21/22 21:00 11/22/22 19:51 Clonazepam (*Crx) 0.5 Mg Tablet PO Not Given HS MICHAEL Cyanocobalamin 500 mcg 11/21/22 09:00 11/22/22 09:12 Cyanocobalamin 500 Mcg Tablet PO Not Given DAILY MICHAEL Dextrose 12.5 gm 11/22/22 06:08 Dextrose 50% 25 Gm/50 Ml Syringe IV PUSH PRN PRN Hypoglycemia Protocol Ferrous Sulfate 325 mg 11/21/22 09:00 11/22/22 09:12 Ferrous Sulfate [address] BY MOUTH Not Given DAILY MICHAEL Glucose 15 gm 11/22/22 06:08 Glucose Oral Gel 15 Gm Of Glucse In 37.5 Gm Tube PO PRN PRN Hypoglycemia Protocol Hydralazine HCl 10 mg 11/21/22 14:06 Hydralazine Hcl 20 Mg/Ml Vial IV PUSH Q8H PRN Blood Pressure - High Dextrose/Sodium Chloride 1,000 mls @ 100 mls/hr 11/22/22 06:10 11/23/22 08:13 Dextrose 5% Sodium Chloride 0.45% IV CONT Not Given .Q10H MICHAEL Dextrose 1,000 mls @ 100 mls/hr 11/22/22 06:08 Dextrose 5% 1,000 Ml IVPB PRN [place]
[2022-11-23] MEDS: DEXTROSE 5%/0.45% SOD CHL 1,000 ML 100 ML IV CONT (16:57)
[2022-11-23 21:07] VITALS: BP 126/49; PULSE 85; RESP 12; TEMP 35.8; O2SAT 96
[2022-11-24] MEDS: DEXTROSE 5%/0.45% SOD CHL 1,000 ML 100 ML IV CONT (04:49)
[2022-11-24] MEDS: LEVOTHYROXINE SODIUM INJ 100 MCG/5 ML VIAL 37.5 MCG IV PUSH (05:41)
[2022-11-24 06:00] VITALS: BP 130/50; PULSE 79; RESP 18; TEMP 35.9; O2SAT 99
[2022-11-24 07:44] VITALS: O2SAT 95
[2022-11-24] MEDS: MIDODRINE HCL 2.5 MG TABLET PO (09:57)
[2022-11-24] MEDS: ANASTROZOLE (*CHEMO) 1 MG TABLET PO (09:57)
[2022-11-24] MEDS: buPROPion HCL XL (24 HR) 150 MG TABCR 300 MG PO (09:57)
[2022-11-24] MEDS: PANTOPRAZOLE SODIUM IV 40 MG VIAL IV PUSH (09:58)
[2022-11-24] MEDS: ONDANSETRON INJ 4 MG/2 ML VIAL IV PUSH (10:07)
--- NOTE | 2022-11-24 10:28 | PM.PNGS ---
Progress Note: A&P Assessment and Plan (1) Small bowel obstruction: Code(s): K56.609 - Unspecified intestinal obstruction, unspecified as to partial versus complete obstruction Status: Acute Assessment and Plan: Resolved. Will advance to a gluten free solid diet Okay from our standpoint to discharge the patient later today if she tolerates solids. No follow-up with surgery needed. Plan I have discussed the patient's case and plan of care with Dr. Koenig. Subjective Subjective Date/Time Seen: 11/24/22 10:28 Patient reports: no new complaints, feels better, tolerating liquids well, flatus and bowel movement Interval history: Patient continues to improve. No nausea, vomiting, bloating, or abdominal pain. Multiple bowel movements overnight. Tolerating full liquids, which are actually mostly clear liquids as her diet is limited to gluten free items. Exam Const: General: no acute distress and awake Orientation/consciousness: patient oriented x3 GI: Inspection: non-distended GI Palp: Yes Soft to palpation, No Tenderness to palpation present (GI) and No Guarding due to palpation present (GI) Auscultation: normal bowel sounds Objective Data Vital Signs Vital Signs: Vital Signs - 24 hr 11/23/22 14:00 11/23/22 21:07 11/24/22 06:00 Temperature 97.6 F 96.5 F L 96.7 F L Pulse Rate 91 85 79 Respiratory Rate 16 12 18 Blood Pressure 133/46 L 126/49 L 130/50 L Pulse Oximetry 100 96 99 Oxygen Delivery 11/24/22 07:44 Temperature Pulse Rate Respiratory Rate Blood Pressure Pulse Oximetry 95 Oxygen Delivery Room Air Intake/Output Intake/Output: Intake & Output 11/21/22 11/22/22 11/23/22 11/24/22 23:59 23:59 23:59 23:59 Intake Total 1000 1570 1240 1480 Output Total 1200 1100 1925 Balance -200 470 -685 1480 Meds/Results Medications: Active Medications Generic Name Dose Route Start Last Admin Trade Name Freq PRN Reason Stop Dose Admin Anastrozole 1 mg 11/21/22 09:00 11/24/22 09:57 Anastrozole (*Chemo) 1 Mg Tablet PO 1 mg DAILY [facility] Administration Aspirin 81 mg 11/21/22 09:00 11/24/22 10:02 Aspirin 81 Mg Enteric Tablet PO Not Given DAILY MICHAEL Benzocaine 1 lozenge 11/24/22 09:54 Benzocaine/Menthol (*Bkc) 18 Ea Lozenge PO PRN PRN Sore Throat Bupropion HCl 300 mg 11/21/22 09:00 11/24/22 09:57 Bupropion Hcl Xl (24 Hr) 150 Mg Tabcr PO 300 mg QAM MICHAEL Administration Calcium Carbonate 500 mg 11/21/22 09:00 11/24/22 10:02 Calcium Carbonate (Oscal) 500 Mg Tablet PO Not Given TID MICHAEL Clonazepam 0.5 mg 11/21/22 21:00 11/23/22 20:44 Clonazepam (*Crx) 0.5 Mg Tablet PO Not Given HS MICHAEL Cyanocobalamin 500 mcg 11/21/22 09:00 11/24/22 10:02 Cyanocobalamin 500 Mcg Tablet PO Not Given DAILY MICHAEL Dextrose 12.5 gm 11/22/22 06:08 Dextrose 50% 25 Gm/50 Ml Syringe IV PUSH PRN PRN Hypoglycemia Protocol Ferrous Sulfate 325 mg 11/21/22 09:00 11/24/22 10:01 Ferrous Sulfate [address] BY MOUTH Not Given DAILY MICHAEL Glucose 15 gm 11/22/22 06:08 Glucose Oral Gel 15 Gm Of Glucse In 37.5 Gm Tube PO PRN PRN Hypoglycemia Protocol Hydralazine HCl 10 mg 11/21/22 14:06 Hydralazine Hcl 20 Mg/Ml Vial IV PUSH Q8H PRN Blood Pressure - High Dextrose/Sodium Chloride 1,000 mls @ 100 mls/hr 11/22/22 06:10 11/24/22 04:49 Dextrose 5% Sodium Chloride 0.45% IV CONT 100 mls/hr .Q10H MICHAEL Administration Dextrose 1,000 mls @ 100 mls/hr 11/22/22 06:08 Dextrose 5% 1,000 Ml IVPB PRN PRN Hypoglycemia Protocol Levothyroxine Sodium 37.5 mcg 11/21/22 06:30 11/24/22 05:41 Levothyroxine Sodium Inj 100 Mcg/5 Ml Vial IV PUSH 37.5 mcg DAILY@0630 MICHAEL Administration Loratadine 10 mg 11/21/22 09:00 11/24/22 10:02 Loratadine 10 Mg Tablet PO Not Given QAM MICHAEL Midodrine 2.5 mg 11/21/22 09:00 11/24/22 09:57 Midodrine Hcl 2.5 Mg
--- NOTE | 2022-11-24 11:01 | PCNFU ---
Nutrition Follow-Up Complete: Moderate Protein Calorie Malnutrition as related to increased protein needs in the setting of acute diease or injury (small bowel obstruction) as evidenced by <75% of EER for 7 days and significant weight loss of 7% in the past 1 week. goal: Meet estimated nutritional needs. Patient is progressing towards goal. We will continue current goal. Pt current nutrition is Regular. Nutrition recommendation: Nutritional Ice Cream BID Last recorded weight is 50.9 kg Bowel Motility: +Bm reported 11/24 Labs Reviewed:Na 131, Glu 221, Hct 23.7, Hgb 8.4 Meds Noted: Protonix, Wellbutrin, Synthroid. Skin: WNL Additional Notes: NGT removed. Diet order has advanced to a regular diet. Tolerating liquids. Recommend adding Nutritional Ice Cream BID providing additional 300 kcals and 9 gms protein. Will monitor weight, labs, skin, diet every 7 days.
--- NOTE | 2022-11-24 13:30 | PM.DS ---
DS: Admitting Diagnosis Discharge Date 11/24/22 1330 Admitting Diagnosis SBO DS: Discharge Diagnosis Discharge Diagnosis (1) Small bowel obstruction: Code(s): K56.609 - Unspecified intestinal obstruction, unspecified as to partial versus complete obstruction Status: Acute Assessment and Plan: CT scan showed evidence of a distal small-bowel obstruction which may be due to internal hernia or adhesions. She has had multiple abdominal surgeries. NG tube removed. Clear liquids Sm bowel follow through was normal Antiemetics and analgesics available as needed. Surgery has been consulted and their input is appreciated. Multiple bowel movements noted (2) Chronic kidney disease: Code(s): N18.9 - Chronic kidney disease, unspecified Status: Chronic Assessment and Plan: Kidney function improving with IV fluids. Continue to monitor. Backl to normal 14/0.80 Stable Stable 2 (3) Chronic anemia: Code(s): D64.9 - Anemia, unspecified Status: Chronic Assessment and Plan: H&H is stable. Continue to monitor. Transfuse if hemoglobin drops below 7. Current H/H 8.4/23.7 H/H 9.9/29.3 upon admission Trend (4) Breast cancer metastasized to liver: Code(s): C50.919 - Malignant neoplasm of unspecified site of unspecified female breast; C78.7 - Secondary malignant neoplasm of liver and intrahepatic bile duct Status: Chronic Assessment and Plan: Takes p.o. chemotherapy pills. Advised to bring from home in order to continue them. (5) Hypothyroidism: Code(s): E03.9 - Hypothyroidism, unspecified Status: Chronic Assessment and Plan: continue home medications once able to tolerate p.o.. (6) Chronic obstructive pulmonary disease: Code(s): J44.9 - Chronic obstructive pulmonary disease, unspecified Status: Chronic Assessment and Plan: not in active exacerbation (7) Tobacco abuse: Code(s): Z72.0 - Tobacco use Status: Chronic Assessment and Plan: She has cut back on smoking and declines the need for nicotine patch. (8) Hypertension: Code(s): I10 - Essential (primary) hypertension Status: Chronic Assessment and Plan: continue home medicine once able to tolerate p.o. hydralazinein p.r.n. with parameters (9) Moderate protein malnutrition: Code(s): E44.0 - Moderate protein-calorie malnutrition Status: Acute Assessment and Plan: Registered dietitian recommending advancing diet as tolerated when she can tolerated diet. Ensure compact b.i.d. providing to 20 kcals and 9 g protein when diet is resumed. DS: Summary Hospital Course Hospital Course: patient 72-year-old female with a past medical history of hypertension, hyperlipidemia, coronary artery disease, COPD, hypothyroidism, GERD who presented to the ED with complaints of abdominal pain. Upon arrival CT showed a small-bowel obstruction. General surgery was consulted NG tube was inserted. Patient with for small-bowel follow-through that showed progression. NG tube was removed patient was given a diet. Currently patient is able to tolerate her diet has been eating well. Labs have been on trend. Labs have been doing well. she denies any current chest pain, shortness a breath, nausea, vomiting, diarrhea constipation. Did collaborate with general surgery who agrees with discharge at this time. Labs and vital signs remained stable at this time. Patient is stable for discharge. Status at Discharge Functional status at discharge: independent ambulation Overall status at discharge: patient is progressing back to baseline Time Spent with Patient Time attestation: Total time spent providing and/or coordinating discharge services: 43 minutes Time spent: Greater than 30 minutes Specific discharge activities: Diagnostic testing, chart review, developing a treatment plan, education, care coordination documentation
== END 2022-11-24 17:15 | disposition home or self-care (01) | DRG 394 ==
LOC: ANHED 12:44 → ANH3MED 15:59
PROVIDERS: Internal Medicine Critical Care Medicine; Nurse Practitioner Family; Physician Assistant; Admitting Provider Internal Medicine; Emergency Provider Emergency Medicine; PCP Internal Medicine; Visit Provider Nurse Practitioner
DX: K46.0 Unspecified abdominal hernia with obstruction, without gangrene (principal); C78.7 Secondary malignant neoplasm of liver and intrahepatic bile duct; K56.50 Intestinal adhesions [bands], unspecified as to partial versus complete obstruction; E44.0 Moderate protein-calorie malnutrition; N18.9 Chronic kidney disease, unspecified; D64.9 Anemia, unspecified; C50.919 Malignant neoplasm of unspecified site of unspecified female breast; E03.9 Hypothyroidism, unspecified; J44.9 Chronic obstructive pulmonary disease, unspecified; E78.5 Hyperlipidemia, unspecified; F41.8 Other specified anxiety disorders; I25.10 Atherosclerotic heart disease of native coronary artery without angina pectoris; F17.210 Nicotine dependence, cigarettes, uncomplicated; Z68.20 Body mass index [BMI] 20.0-20.9, adult; Z79.82 Long term (current) use of aspirin; Z95.5 Presence of coronary angioplasty implant and graft; Z90.49 Acquired absence of other specified parts of digestive tract; Z90.710 Acquired absence of both cervix and uterus
CPT/HCPCS: 36415; 74018; 74019; 74176; 74250; 80048; 80053; 81001; 82948; 83605; 83690; 83735; 84443; 85025; 85027; 85055; 96361; 96374; 99285; A9270; C9113; J1200; J1720; J2270; J2405; J2550; J3480; J7030; J7040

== ENCOUNTER 2023-01-16 11:29 | Outpatient (CLI) | payer MEDICARE, SELFPAY ==
[2023-01-16 11:45] LABS: Basophils Absolute Auto 0.1 K/mm3 (0.0-0.1); Eosinophils Absolute Auto 0.1 K/mm3 (0-0.3); Eosinophils Percent Auto 4.5 % (0-4.4); Hematocrit 31.3 % (37.0-47.0); Hemoglobin 10.7 g/dL (12.0-15.0); Immature Granulocyte Absolute 0.01 K/mm3 (0.00-0.031); Immature Granulocyte Percent A 0.4 % (0-0.5); Lymphocytes Absolute Auto 0.69 K/mm3 (0.9-3.2); Lymphocytes Percent Auto 28.3 % (18.3-44.2); Mean Corpuscular HGB Conc 34.2 g/dl (32-36); Mean Corpuscular Hemoglobin 38.9 pg (26-34); Mean Corpuscular Volume 113.8 fl (80-100); Mean Platelet Volume 9.6 fl (7.4-10.4); Monocytes Absolute Auto 0.2 K/mm3 (0.1-0.6); Neutrophils Absolute Auto 1.4 K/mm3 (1.3-6.7); Neutrophils Percent Auto 57.8 % (45.5-73.1); Platelet Count Result 288 k/mm3 (150-375); Red Blood Count 2.75 M/mm3 (4.2-5.4); Red Cell Distribution Width 12.6 % (11.5-14.5); White Blood Count 2.4 K/mm3 (4.5-10.0)
[2023-01-16 11:52] LABS: Atypical Lymphocytes Present; Platelet Estimate Adequate (Adequate); Poikilocytosis 1+ (NORMAL); Schistocytes None Seen (NORMAL); Stomatocytes 1+ (NORMAL)
[2023-01-16 16:51] LABS: Alanine Aminotransferase 18 U/L (6-35); Albumin Level 4.4 g/dL (3.5-5.1); Alkaline Phosphatase 64 U/L (38-126); Anion Gap 12 mmol/L (8-16); Aspartate Amino Transferase 32 U/L (14-36); Bilirubin,Total 0.6 mg/dL (0.2-1.3); Blood Urea Nitrogen 29 mg/dL (7-17); Carbon Dioxide 29 mmol/L (22-30); Chloride 102 mmol/L (98-107); Estimated Glomerular Filt Rate 37; Glucose 114 mg/dL (65-110); Potassium 4.3 mmol/L (3.4-5.0); Sodium 143 mmol/L (137-145)
[2023-01-18 13:29] LABS: CA 15-3 21 U/mL (<32)
== END 2023-01-16 11:30 | disposition home or self-care (01) ==
LOC: ANHLAB 11:31
PROVIDERS: PCP Internal Medicine; Visit Provider Internal Medicine Hematology & Oncology
DX: C50.919 Malignant neoplasm of unspecified site of unspecified female breast (principal)
CPT/HCPCS: 36415; 80053; 85025; 86300

== ENCOUNTER 2023-03-23 09:22 | Outpatient (CLI) | payer MEDICARE, SELFPAY ==
--- NOTE | ~2023-03-23 | US_ITS ---
EXAMINATION: US abdomen complete DATE: 03/23/2023 10:21 INDICATION: Chronic constipation, history of breast cancer metastatic to the liver TECHNIQUE: Multiple grayscale and Doppler ultrasound images of the abdomen were obtained. COMPARISON: CT, 11/20/2022 FINDINGS: The head and body of the pancreas are normal. The pancreatic tail is obscured by bowel gas. The liver demonstrates heterogeneous echotexture and ill-defined masses particularly in the right he patic lobe, in the areas of known metastatic disease. Normal hepatopetal flow in the main portal vein . Changes of cholecystectomy are noted. The normal common bile duct measures 3 mm. There was no sonog raphic Valdovinos sign. The visualized portions of the aorta and inferior vena cava are normal. The spleen measures 7.9 cm. Multiple echogenic foci are noted in the bladder, consistent with healed granulomatous disease. The right kidney measures 9 x 3.5 x 4.6 cm. The left kidney measures 9.5 x 4.5 x 4.5 cm. The kidneys demonstrate normal parenchymal echogenicity. There is no hydronephrosis. IMPRESSION: 1. Heterogeneous echotexture and ill-defined masses of the liver, consistent with known metastatic di sease. Reviewed, dictated and finalized at location F. MATERIAL INSPECTOR IMPRESSION: 1. Heterogeneous echotexture and ill-defined masses of the liver, consistent wi th known metastatic disease.
== END 2023-03-23 09:23 | disposition home or self-care (01) ==
PROVIDERS: PCP Internal Medicine; Visit Provider Internal Medicine Hematology & Oncology
DX: K59.09 Other constipation (principal); R93.5 Abnormal findings on diagnostic imaging of other abdominal regions, including retroperitoneum
CPT/HCPCS: 76700

== ENCOUNTER 2023-03-28 12:19 | Outpatient (CLI) | payer MEDICARE, SELFPAY ==
--- NOTE | ~2023-03-28 | XR_ITS ---
XR abdomen/kub 1V 03/28/2023 12:47 Indication: Constipation Procedure: KUB Comparison: 11/23/2022 Findings: Nonobstructive bowel gas pattern. Moderate colonic fecal loading. There are calcified granu ellie of the spleen. There are compression fractures of T12 and L1 treated with vertebroplasty. No ac torres martinez osseous abnormality. Impression: 1: Nonobstructive bowel gas pattern. Reviewed, dictated and finalized at location L. TIC YARN TWISTER HELPER Impression: 1: Nonobstructive bowel gas pattern.
== END 2023-03-28 12:20 | disposition home or self-care (01) ==
PROVIDERS: PCP Internal Medicine; Visit Provider Nurse Practitioner Family
DX: K59.00 Constipation, unspecified (principal)
CPT/HCPCS: 74018

== ENCOUNTER 2023-05-08 13:00 | Outpatient (CLI) | payer MEDICARE, SELFPAY ==
--- NOTE | ~2023-05-08 | CT_ITS ---
EXAMINATION: CT lung screening DATE: 05/08/2023 13:11 INDICATION: Personal history of nicotine dependence, current smoker with 50 pack year history TECHNIQUE: Computed tomography (CT) of the chest was performed without intravenous contrast. The dose -length product (DLP) was 61.85 mGy-cm. Automated exposure control and iterative reconstruction techn ique were employed. COMPARISON: 05/05/2022 FINDINGS: There is severe emphysema. Scarring of the lung apices is again noted. Changes of right mas tectomy are noted. There is subpleural thickening anterolaterally in the right lung, likely related t o radiation change. A surgical staple line is present in the left upper lung zone. Calcified pulmonar y nodules and calcified subcarinal lymph nodes are consistent with old granulomatous disease. Punctat e calcifications in otherwise normal appearing liver and spleen likely represent healed granulomatous disease. Calcified coronary artery atherosclerosis is noted. There is interval vertebroplasty change at T12 and L1. There is a new burst fracture of T11. There is severe thoracic spondylosis. Previousl y described liver masses are not well evaluated without intravenous contrast. IMPRESSION: 1. Lung-RADS category 1: Negative. Continue annual screening with noncontrast low-dose chest CT in 12 months. Reviewed, dictated and finalized at location B. REPORTER IMPRESSION: 1. Lung-RADS category 1: Negative. Continue annual screening with noncontrast l ow-dose chest CT in 12 months.
== END 2023-05-08 13:01 | disposition home or self-care (01) ==
LOC: ANHIMG 13:01
PROVIDERS: PCP Physician Assistant; Visit Provider Internal Medicine Pulmonary Disease
DX: Z12.2 Encounter for screening for malignant neoplasm of respiratory organs (principal); F17.210 Nicotine dependence, cigarettes, uncomplicated
CPT/HCPCS: 71271

== ENCOUNTER 2023-05-22 01:08 | Day surgery (SDC) | payer MEDICARE, SELFPAY ==
[2023-05-12 10:36] VITALS: BMI 18.6
--- NOTE | 2023-05-19 09:19 | SUR.PREOP ---
Patient called regarding upcoming procedure. Voicemail left regarding appointment times.
[2023-05-22 08:26] VITALS: BP 138/62; PULSE 110; RESP 16; TEMP 36.7; O2SAT 99
[2023-05-22] MEDS: LACTATED RINGERS 1,000 ML 150 ML IV CONT (08:35)
--- NOTE | 2023-05-22 08:40 | WPDANESEPPF ---
Anes - Initial Pre Proc Eval Procedure: Operation Date: 05/22/23 09:30 Proposed Procedures p Colonoscopy - Shakeel Boogie MD Date/Time: 05/22/23 08:40 Surgeon: Shakeel Boogie MD Pre Op Diagnosis: constipation,changed in bowel habits Patient Data Age: 73 Gender: F Height: 1.57 m Weight: 46.6 kg Last Vital Signs Temp 98.0 F 05/22/23 08:26 Pulse 110 H 05/22/23 08:26 Resp 16 05/22/23 08:26 BP 138/62 05/22/23 08:26 Pulse Ox 99 05/22/23 08:26 O2 Del Method Room Air 05/22/23 08:26 Allergies Allergy/AdvReac Type Severity Reaction Status Date / Time amoxicillin Allergy Severe Anaphylactic Verified 05/22/23 08:23 Shock shellfish derived Allergy Severe itch, Verified 05/22/23 08:23 rash, SOB bacitracin Allergy Intermediate Unknown Verified 05/22/23 08:23 ipratropium Allergy Intermediate rash, Verified 05/22/23 08:23 itchy, SOB latex Allergy Intermediate Hives Verified 05/22/23 08:23 neomycin Allergy Intermediate rash, Verified 05/22/23 08:23 [From Maxitrol (neomycin blisters, sulf)] hives nitrofurantoin Allergy Intermediate rash, Verified 05/22/23 08:23 [From Macrobid] itchy, SOB perfume Allergy Intermediate rash, Verified 05/22/23 08:23 hives, blisters polymyxin B Allergy Intermediate rash, Verified 05/22/23 08:23 [From Maxitrol (neomycin blisters, sulf)] hives FRAGRANCE Allergy Severe Blister Uncoded 05/22/23 08:23 laundry soap Tide and Gain Allergy Intermediate blisters, Uncoded 05/22/23 08:23 hives, itchiness, redness, rash Home Medications Medication Instructions Recorded Confirmed Type fluticasone propionate 50 2 spray intranasal PRN PRN Allergy 03/21/19 05/22/23 History mcg/actuation nasal Symptoms spray,suspension (Flonase Allergy Relief) aspirin 81 mg tablet,delayed 81 mg PO DAILY 06/18/19 05/22/23 History release (Adult Low Dose Aspirin) rosuvastatin 40 mg tablet 40 mg PO DAILY 08/18/20 05/22/23 History fexofenadine 180 mg tablet 180 mg PO DAILY 08/20/21 05/22/23 History (Zakiya Allergy) anastrozole 1 mg tablet 1 mg PO DAILY 02/15/22 05/22/23 History palbociclib 125 mg capsule 125 mg PO DAILY 02/15/22 05/22/23 History (Ibrance) midodrine 2.5 mg tablet 2.5 mg PO DAILY 08/09/22 05/22/23 History ferrous sulfate 325 mg (65 mg 325 mg PO DAILY 08/23/22 05/22/23 History iron) tablet calcium 500 mg tablet 500 mg PO TID 09/02/22 05/22/23 History cyanocobalamin (vitamin B-12) 500 500 mcg PO DAILY 09/02/22 05/22/23 History mcg tablet (Vitamin B-12) bupropion HCl 300 mg 24 hr tablet, 300 mg PO QAM #90 tabs 01/01/23 05/22/23 Rx extended release levothyroxine 75 mcg tablet 75 mcg PO DAILY #90 tabs 03/06/23 05/22/23 Rx clonazepam 0.5 mg tablet 0.5 mg PO .hs #90 tabs 04/19/23 05/22/23 Rx omeprazole 20 mg capsule,delayed 20 mg PO DAILY #90 caps 04/19/23 05/22/23 Rx release lactulose 20 gram/30 mL oral 20 g (30 mL) PO BID #2,880 mL 05/03/23 05/22/23 Rx solution albuterol sulfate 90 mcg/actuation 2 inh inhalation QID 05/12/23 05/22/23 History aerosol inhaler ondansetron 8 mg disintegrating 8 mg PO Q8H PRN Nausea 05/12/23 05/22/23 History tablet Patient hx anesthesia problems: none Family hx anesthesia problems: none Results Review: All pre-operative results and documents have been reviewed as part of the pre-operative evaluation. [facility] Past Medical History Medical History Breast cancer Breast cancer metastasized to liver Cancer of right breast (1997) Status post mastectomy and chemo radiation. Metastatic disease to liver discovered in 2022. Change in bowel habits Chronic anemia Chronic kidney disease Chronic obstructive pulmonary disease Constipation Coronary artery disease Depression with anxiety Gastroesophageal reflux disease Hyperlipidemia Hypertension Hypothyroidism Surgical
--- NOTE | 2023-05-22 09:00 | PM.HPGS ---
History of Present Illness History of Present Illness Consent: Risks, benefits, and alternatives have been discussed and questions answered. Patient agrees to proceed with procedure. Chief complaint: colon screening Narrative: Vania Betancourt is a 73 year old female here for screening colonoscopy, last one 10 years ago Review of Systems Review of Systems: All systems reviewed & are unremarkable except as noted in HPI and below PMFSH Past Medical History Medical History (Updated 05/22/23 @ 09:00 by Shakeel Boogie MD) Breast cancer Breast cancer metastasized to liver Cancer of right breast (1997) Status post mastectomy and chemo radiation. Metastatic disease to liver discovered in 2022. Change in bowel habits Chronic anemia Chronic kidney disease Chronic obstructive pulmonary disease Colon cancer screening Constipation Coronary artery disease Depression with anxiety Gastroesophageal reflux disease Hyperlipidemia Hypertension Hypothyroidism Surgical History Surgical History History of appendectomy History of bladder repair surgery History of cardiac catheterization History of cholecystectomy (2012) History of coronary artery stent placement History of resection of small bowel (1979) History of right mastectomy (1997) History of sinus surgery History of tonsillectomy Family History Family History Mother Patient's mother is Family history of diabetes mellitus in first degree relative Family history of lung cancer Family history of congestive heart failure Father Family history of malignant neoplasm, Onset Age: 73 Patient's father is Social History Social History Social History: Surrogate medical decision maker: Dixon Tomlinson, son. Code status: Do not resuscitate. Smoking packs per day: 1 Smoking cigarettes per day: 20.0 Years smoked: 50 Smoking pack-years: 50.00 Smoking status: Current every day smoker Tobacco type: cigarettes Second hand tobacco smoke exposure: Yes Additional smoking assessment comments: CUT BACK TO 5 CIG/DAY SINCE MIDDLE 2021 Alcohol intake: current Substance use: never Substance use type: does not use Lack of Transportation: No Lack of Food: Never True Current Housing: I Have Housing Concerned About Future Housing: No Difficulty Paying Gas/Electric Bills: No Difficulty Paying for Meds: No Currently Unemployed: No Education: Don't Know Difficulty w/ Childcare or Family Care: No Living arrangements: with family Spiritual care concerns: No Meds Home Medications and Allergies Home Medications Medication Instructions Recorded Confirmed Type fluticasone propionate 50 2 spray intranasal PRN PRN Allergy 03/21/19 05/22/23 History mcg/actuation nasal Symptoms spray,suspension (Flonase Allergy Relief) aspirin 81 mg tablet,delayed 81 mg PO DAILY 06/18/19 05/22/23 History release (Adult Low Dose Aspirin) rosuvastatin 40 mg tablet 40 mg PO DAILY 08/18/20 05/22/23 History fexofenadine 180 mg tablet 180 mg PO DAILY 08/20/21 05/22/23 History (Zakiya Allergy) anastrozole 1 mg tablet 1 mg PO DAILY 02/15/22 05/22/23 History palbociclib 125 mg capsule 125 mg PO DAILY 02/15/22 05/22/23 History (Ibrance) midodrine 2.5 mg tablet 2.5 mg PO DAILY 08/09/22 05/22/23 History ferrous sulfate 325 mg (65 mg 325 mg PO DAILY 08/23/22 05/22/23 History iron) tablet calcium 500 mg tablet 500 mg PO TID 09/02/22 05/22/23 History cyanocobalamin (vitamin B-12) 500 500 mcg PO DAILY 09/02/22 05/22/23 History mcg tablet (Vitamin B-12) bupropion HCl 300 mg 24 hr tablet, 300 mg PO QAM #90 tabs 01/01/23 05/22/23 Rx extended release levothyroxine 75 mcg tablet 75 mcg PO DAILY #90 tabs 03/06/23 05/22/23 Rx clonazep
[2023-05-22 09:20] VITALS: BP 119/68; PULSE 86; RESP 18; O2SAT 100
[2023-05-22 09:30] VITALS: BP 135/52; PULSE 89; RESP 19; O2SAT 100
[2023-05-22 09:40] VITALS: BP 140/50; PULSE 87; RESP 24; O2SAT 100
== END 2023-05-22 09:51 | disposition home or self-care (01) ==
PROVIDERS: PCP Physician Assistant; Visit Provider Internal Medicine Gastroenterology
PROC: 0DJD8ZZ Inspection of Lower Intestinal Tract, Via Natural or Artificial Opening Endoscopic (ICD-10-PCS; CPT 45378; principal; 2023-05-22 09:30)
DX: Z12.11 Encounter for screening for malignant neoplasm of colon (principal); K57.30 Diverticulosis of large intestine without perforation or abscess without bleeding; E03.9 Hypothyroidism, unspecified; E78.5 Hyperlipidemia, unspecified; K21.9 Gastro-esophageal reflux disease without esophagitis; D64.9 Anemia, unspecified; I12.9 Hypertensive chronic kidney disease with stage 1 through stage 4 chronic kidney disease, or unspecified chronic kidney disease; N18.9 Chronic kidney disease, unspecified; J44.9 Chronic obstructive pulmonary disease, unspecified; F41.8 Other specified anxiety disorders; I25.10 Atherosclerotic heart disease of native coronary artery without angina pectoris; F17.210 Nicotine dependence, cigarettes, uncomplicated; Z79.82 Long term (current) use of aspirin; Z79.811 Long term (current) use of aromatase inhibitors; Z79.51 Long term (current) use of inhaled steroids; Z98.890 Other specified postprocedural states; Z95.5 Presence of coronary angioplasty implant and graft; Z90.49 Acquired absence of other specified parts of digestive tract; Z85.3 Personal history of malignant neoplasm of breast; Z85.05 Personal history of malignant neoplasm of liver; Z92.21 Personal history of antineoplastic chemotherapy; Z80.1 Family history of malignant neoplasm of trachea, bronchus and lung; Z82.49 Family history of ischemic heart disease and other diseases of the circulatory system
CPT/HCPCS: G0105; J2704; J7120

== ENCOUNTER 2023-09-08 08:30 | Outpatient (CLI) | payer MEDICARE, SELFPAY ==
--- NOTE | ~2023-09-08 | CT_ITS ---
EXAMINATION: CT chest abdomen pelvis wo con DATE: 09/08/2023 08:47 INDICATION: Primary malignant neoplasm of breast. TECHNIQUE: Computed tomography (CT) of the chest, abdomen, and pelvis was performed without intraveno us contrast. Automated exposure control and iterative reconstruction technique were employed. The dos e-length product was 285.99 mGy-cm. COMPARISON: Chest CT 05/08/2023, CT abdomen and pelvis 11/20/2022 FINDINGS: CHEST CT: There is mild scarring at the lung apices. There is severe emphysema. There are stable lines in left lung. Calcified pulmonary nodules and calcified mediastinal lymph nodes are consistent with old granu lomatous disease. There is peripheral radiation fibrosis in right lung. No pleural effusion. There ar e changes of right mastectomy. The heart size is normal. There are coronary artery calcifications. No pericardial effusion. There is a subacute versus chronic burst fracture of T11. There is a chronic c ompression fracture of T12 which is of vertebroplasty. ABDOMEN/PELVIS CT: Calcifications in the liver and spleen are consistent with old granulomatous disease. There are at le ast 4 hypodense liver masses measuring up to 4.8 cm. The gallbladder is absent. The pancreas, adrenal glands, and kidneys are normal. There is diverticulosis of the colon without evidence of diverticuli tis. There are no dilated loops of bowel. The appendix is not visualized. There are no pathologically enlarged lymph nodes. There is no ascites. There are healing insufficiency fractures of the sacrum. There is a chronic compression fracture of L1 with changes of vertebroplasty. There is a chronic comp ression fracture of L2. There is a chronic burst fracture of L4. IMPRESSION: 1. Liver masses, stable from 11/20/2022, consistent with metastatic disease. Note that the masses are not well visualized without contrast. Reviewed, dictated and finalized at location A. IMPRESSION: 1. Liver masses, stable from 11/20/2022, consistent with metastatic disease. Not e that the masses are not well visualized without contrast.
--- NOTE | ~2023-09-08 | NM_ITS ---
EXAMINATION: NM bone scan whole body DATE: 09/08/2023 11:57 INDICATION: MR breast cancer TECHNIQUE: 26.8 mCi Tc-99m HDP was administered intravenously. Delayed whole-body scintigrams were o btained. COMPARISON: CT dated 09/08/2023 and prior bone scan dated 05/27/2022 FINDINGS: Interval resolution of the prior increased uptake in the thoracolumbar junction associated with chron ic T11 burst fracture and chronic T12 and L1 compression fracture with prior with vertebral plasties. The prior mildly increased uptake at the right sacral ala associated with the right side of the bila teral chronic sacral ala insufficiency fractures has also resolved. No new foci of abnormal bone upta ke to suggest osseous metastatic disease. IMPRESSION: 1. Unremarkable study with no evident osseous metastatic disease or acute osseous abnormality. Reviewed, dictated and finalized at location B. IMPRESSION: 1. Unremarkable study with no evident osseous metastatic disease or acute osseo us abnormality.
== END 2023-09-08 08:31 | disposition home or self-care (01) ==
PROVIDERS: PCP Physician Assistant; Visit Provider Internal Medicine Hematology & Oncology
DX: C50.919 Malignant neoplasm of unspecified site of unspecified female breast (principal); K76.89 Other specified diseases of liver
CPT/HCPCS: 71250; 74176; 78306; A9503

== ENCOUNTER 2023-09-24 06:49 | Inpatient (IN) | payer MEDICARE, SELFPAY ==
[2023-09-24] VITALS (19 sets, daily range): BP systolic 115–144; BP diastolic 42–61; PULSE 96–117; RESP 12–25; TEMP 36.3–36.9; O2SAT 92–100; BMI 18.3; BMI 18.5
--- NOTE | ~2023-09-24 | XR_ITS ---
Portable chest x-ray Comparison: 09/30/2023 Clinical History: Hypoxia Findings: Stable right-sided central venous line. Probable COPD. Clear lungs. Cardiomediastinal zachery houette is stable. Stable vertebroplasty is noted at the lower thoracic and upper lumbar spine. Bones and soft tissues are otherwise unremarkable. Impression: Probable COPD. Clear lungs. Stable support line. Reviewed, dictated and finalized at location . Impression: Probable COPD. Clear lungs. Stable support line.
--- NOTE | ~2023-09-24 | US_ITS ---
RIGHT UPPER EXTREMITY VENOUS ULTRASOUND Ordering provider: Michelle Goss APRN History: . edema . Comparison: None. FINDINGS: --JUGULAR: Patent and free of thrombus. Normal compressibility, phasic flow and augmentation. --SUBCLAVIAN: Patent and free of thrombus. Normal compressibility, phasic flow and augmentation. --AXILLARY: Patent and free of thrombus. Normal compressibility, phasic flow and augmentation. --BRACHIAL: Patent and free of thrombus. Normal compressibility, phasic flow and augmentation. --CEPHALIC: Patent and free of thrombus. Normal compressibility, phasic flow and augmentation. Distal cephalic vein is not demonstrated. --BASILIC: Patent and free of thrombus. Normal compressibility, phasic flow and augmentation. --RADIAL: Patent and free of thrombus. Normal compressibility, phasic flow and augmentation. --ULNAR: Patent and free of thrombus. Normal compressibility, phasic flow and augmentation. IMPRESSION: Negative right upper extremity venous US. No deep vein thrombosis. Reviewed, dictated and finalized at location A.
--- NOTE | ~2023-09-24 | US_ITS ---
EXAMINATION: US biopsy renal DATE: 09/29/2023 10:24 INDICATION: Acute renal insufficiency with hematuria and proteinuria TECHNIQUE: The procedure including the risks, benefits, and alternatives was discussed with the patie nt. Risks discussed included bleeding and infection. The patient understood the risks and agreed to p roceed. A timeout was performed to verify the patient's name, date of , and procedure to be p erformed. The skin overlying the left kidney was prepped and draped in usual sterile fashion. Anest hetic was administered with 1% lidocaine subcutaneously. An 18 gauge core biopsy needle was then use d to obtain 3 core biopsy specimens under continuous sonographic guidance. The entry site was cleaned and dressed. There were no immediate complications. FINDINGS: Ultrasound images demonstrate the needle in the kidney. IMPRESSION: 1. Ultrasound-guided random left kidney core needle biopsy. Reviewed, dictated and finalized at location A.
--- NOTE | ~2023-09-24 | US_ITS ---
US renal BI Ordering provider: Trent Cowart MD History: . gaye . Comparison: None. Technique: Ultrasound bilateral kidneys. Findings: RIGHT KIDNEY: Measures 10.6x 4.6x 5.3 cm in length which is normal in size. No renal cysts. No renal mass or visualized echogenic stones. Otherwise, normal echotexture and contour. No hydronephrosis. No rmal renal cortical thickness. LEFT KIDNEY: Measures 12.1x 5 x 4.7 cm in length which is normal in size. No renal cysts. No renal ma ss or visualized echogenic stones. Otherwise, normal echotexture and contour. No hydronephrosis. Norm al renal cortical thickness. BLADDER: Not distended. IMPRESSION: Normal study. Reviewed, dictated and finalized at location A. IMPRESSION: Normal study.
--- NOTE | ~2023-09-24 | XR_ITS ---
XR chest 2V DATE: 09/24/2023 07:37 INDICATION: Increased shortness of breath. Productive cough. History of COPD. TECHNIQUE: 2 views COMPARISON: 09/08/2023 CT chest abdomen pelvis FINDINGS: Bilateral hyperinflation with relative flattening of the diaphragm, consistent with COPD. Postoperative change from left partial pneumonectomy. No pulmonary infiltrate or consolidation, pleural effusion or pulmonary vascular congestion or pneumo thorax is evident. Normal heart size. Thoracic aortic calcification. Status post right mastectomy and right axillary node dissection. Status post vertebroplasty at T12 and L1. Stable moderate burst fracture at T11 and 09/08/2023. Osteopenia. IMPRESSION: COPD; no active pulmonary disease is evident Postoperative change, left upper lobe Status post right mastectomy and right axillary node dissection Reviewed, dictated and finalized at location A.
--- NOTE | ~2023-09-24 | XR_ITS ---
EXAMINATION: XR chest 1V portable Exam Date/Time: 09/26/2023 18:40 CDT HISTORY: SOB Comparison: 09/24/2023. RESULT: Lines, tubes, and devices: Right axillary clips. T12 and L1 vertebroplasty cement. Suture lines over the left hilum and left upper lung. Lungs and pleura: Hazy left lower lobe opacification. Mild left costophrenic angle blunting. Emphyse matous changes. Cardiomediastinal silhouette: Stable. Other: No acute osseous or upper abdominal finding. Right mastectomy. IMPRESSION: Small left pleural effusion with likely adjacent left basilar atelectasis. Infection/aspiration not e xcluded. Reviewed, dictated and finalized at location K. IMPRESSION: Small left pleural effusion with likely adjacent left basilar atelectasis. Infe ction/aspiration not excluded.
--- NOTE | ~2023-09-24 | XR_ITS ---
XR chest 1V portable 09/30/2023 13:22 Indication: Cough Procedure: AP portable chest Comparison: Comparison to multiple prior studies sequentially, with oldest reviewed study dated 09/23. Findings: Left basilar infiltrates may represent atelectasis or pneumonia. Small pleural effusions. T here are surgical changes at the left apex. Central venous catheter tip in the SVC. Impression: 1: Left basilar airspace disease, atelectasis versus pneumonia. 2: Small pleural effusions. Reviewed, dictated and finalized at location B. Impression: 1: Left basilar airspace disease, atelectasis versus pneumonia. 2: Small pleural effusions.
--- NOTE | ~2023-09-24 | XR_ITS ---
EXAMINATION: XR chest port-a-cath/central Exam Date/Time: 09/28/2023 18:35 CDT HISTORY: CENTRAL LINE PLACEMENT Comparison: 09/26/2023. RESULT: Lines, tubes, and devices: New right subclavian dialysis catheter, tip at the distal SVC. Vertebropl asty cement at T12 and L1. Suture lines over the left upper and lower lung and left hilum. Right axil gustavo clips. Lungs and pleura: Emphysematous change. Slightly improved aeration of the left lung base. Persistent mild left costophrenic angle blunting. Cardiomediastinal silhouette: Stable. Other: No acute osseous or upper abdominal finding. IMPRESSION: Right subclavian dialysis catheter, tip terminating at the distal SVC. Stable small left pleural effusion versus chronic pleural blunting. Reviewed, dictated and finalized at location K.
--- NOTE | ~2023-09-24 | XR_ITS ---
XR abdomen/kub 1V Ordering provider: Ivon Cook APRN History: . nausea, vomiting . Comparison: March 28, 2023 FINDINGS: BOWEL: Nonobstructive bowel gas pattern. ORGANOMEGALY: None. SIGNIFICANT PATHOLOGIC CALCIFICATIONS: None. OTHER: Vertebroplasty T12 and L1. Bilateral sacroiliacs. No free air is seen under the diaphragm. IMPRESSION: NO ACUTE ABDOMINAL FINDINGS. Reviewed, dictated and finalized at location A.
--- NOTE | ~2023-09-24 | XR_ITS ---
XR fl guide central line place Indication: Central line placement TECHNIQUE: Fluoroscopy used during central line placement performed by [Rey Soria MD] on . 52 seconds of fluoroscopy with one fluoroscopic images captured. FINDINGS: Correlate with procedure note. IMPRESSION: Fluoroscopy used during central line placement. Reviewed, dictated and finalized at location B.
--- NOTE | 2023-09-24 06:56 | ECG_ITS ---
Test Date: 2023-09-24 06:58:21 Measurements Intervals [place] Rate: 114 P: 76 IN: 191 QRS: 59 QRSD: 90 T: 70 QT: 321 QTc: 444 Interpretive Statements SINUS TACHYCARDIA RIGHT ATRIAL ENLARGEMENT POSSIBLE LEFT ATRIAL ENLARGEMENT MINIMAL Q WAVES- ANTEROLAT/INF LEADS BORDERLINE ST-T WAVE ABNORMALITY- HIGH LATERAL LEADS BASELINE ARTIFACT- I, AVR, AVL, V5 ABNORMAL ECG No previous ECG available for comparison Electronically Signed On 09-24-2023 07:32:25 CDT by Vihn Zavala D.O.
[2023-09-24 07:09] LABS: Basophils Absolute Auto 0.1 K/mm3 (0.0-0.1); Basophils Percent Auto 1.7 % (0.2-1.2); Eosinophils Percent Auto 0.6 % (0-4.4); Hematocrit 29.6 % (37.0-47.0); Immature Granulocyte Absolute 0.04 K/mm3 (0.00-0.031); Immature Granulocyte Percent A 0.9 % (0-0.5); Lymphocytes Absolute Auto 0.44 K/mm3 (0.9-3.2); Lymphocytes Percent Auto 9.4 % (18.3-44.2); Mean Corpuscular HGB Conc 33.8 g/dl (32-36); Mean Corpuscular Hemoglobin 38.9 pg (26-34); Mean Corpuscular Volume 115.2 fl (80-100); Mean Platelet Volume 9.6 fl (7.4-10.4); Monocytes Absolute Auto 0.6 K/mm3 (0.1-0.6); Monocytes Percent Auto 12.6 % (2.6-8.5); Neutrophils Absolute Auto 3.5 K/mm3 (1.3-6.7); Neutrophils Percent Auto 74.8 % (45.5-73.1); Platelet Count Result 258 k/mm3 (150-375); Red Blood Count 2.57 M/mm3 (4.2-5.4); Red Cell Distribution Width 13.3 % (11.5-14.5); White Blood Count 4.7 K/mm3 (4.5-10.0)
[2023-09-24] MEDS: SODIUM CHLORIDE 0.9% IV 1,000 ML 999 ML IV CONT (07:28)
[2023-09-24 07:29] LABS: Alanine Aminotransferase 39 U/L (6-35); Albumin Level 4.1 g/dL (3.5-5.1); Alkaline Phosphatase 121 U/L (38-126); Anion Gap 18 mmol/L (4-12); Aspartate Amino Transferase 64 U/L (14-36); Bilirubin,Total 0.7 mg/dL (0.2-1.3); Blood Urea Nitrogen 74 mg/dL (7-17); Calcium 8.1 mg/dL (8.4-10.2); Carbon Dioxide 18 mmol/L (22-30); Chloride 94 mmol/L (98-107); Estimated CRCL calculation 5 ml/min; Estimated Glomerular Filt Rate 7; Glucose 98 mg/dL (65-110); Potassium 4.7 mmol/L (3.4-5.0); Sodium 130 mmol/L (137-145)
--- NOTE | 2023-09-24 07:33 | PCRCNOTE ---
Arrived to give continuous neb tx; XRAY had already taken the pt.
[2023-09-24] MEDS: ALBUTEROL SULFATE NEB 2.5 MG/3 ML INH 10 MG INHALATION (07:38)
--- NOTE | 2023-09-24 07:53 | ED.SOB ---
HPI - SOB/Dyspnea General Chief Complaint: Shortness of Breath/Dyspnea Stated Complaint: SOB Time Seen by Provider: 09/24/23 07:00 History of Present Illness HPI Narrative: Patient is a 73-year-old female with history of breast cancer metastasized to her liver who presents ER with cough and fatigue. Ongoing over last 2 weeks. Poor oral intake. No fevers or chills. Recently finished azithromycin that was prescribed to her by her oncologist Dr. Alatorre. Reports no fevers or chills. Still has coarse productive cough. She is without nausea or vomiting. Stable size of metastases on CT scan 3 weeks ago. Related Data Home Medications Medication Instructions Recorded Confirmed fluticasone propionate 50 2 spray intranasal PRN PRN Allergy 03/21/19 08/25/23 mcg/actuation nasal Symptoms spray,suspension (Flonase Allergy Relief) aspirin 81 mg tablet,delayed 81 mg PO DAILY 06/18/19 08/25/23 release (Adult Low Dose Aspirin) rosuvastatin 40 mg tablet 40 mg PO DAILY 08/18/20 08/25/23 fexofenadine 180 mg tablet 180 mg PO DAILY 08/20/21 08/25/23 (Zakiya Allergy) anastrozole 1 mg tablet 1 mg PO DAILY 02/15/22 08/25/23 palbociclib 125 mg capsule 125 mg PO DAILY 02/15/22 08/25/23 (Ibrance) midodrine 2.5 mg tablet 2.5 mg PO DAILY 08/09/22 08/25/23 ferrous sulfate 325 mg (65 mg 325 mg PO DAILY 08/23/22 08/25/23 iron) tablet calcium 500 mg tablet 500 mg PO TID 09/02/22 08/25/23 cyanocobalamin (vitamin B-12) 500 500 mcg PO DAILY 09/02/22 08/25/23 mcg tablet (Vitamin B-12) ondansetron 8 mg disintegrating 8 mg PO Q8H PRN Nausea 05/12/23 08/25/23 tablet Allergies Allergy/AdvReac Type Severity Reaction Status Date / Time amoxicillin Allergy Severe Anaphylactic Verified 08/25/23 09:07 Shock shellfish derived Allergy Severe itch, Verified 08/25/23 09:07 rash, SOB bacitracin Allergy Intermediate Unknown Verified 08/25/23 09:07 ipratropium Allergy Intermediate rash, Verified 08/25/23 09:07 itchy, SOB latex Allergy Intermediate Hives Verified 08/25/23 09:07 neomycin Allergy Intermediate rash, Verified 08/25/23 09:07 [From Maxitrol (neomycin blisters, sulf)] hives nitrofurantoin Allergy Intermediate rash, Verified 08/25/23 09:07 [From Macrobid] itchy, SOB perfume Allergy Intermediate rash, Verified 08/25/23 09:07 hives, blisters polymyxin B Allergy Intermediate rash, Verified 08/25/23 09:07 [From Maxitrol (neomycin blisters, sulf)] hives FRAGRANCE Allergy Severe Blister Uncoded 08/25/23 09:07 laundry soap Tide and Gain Allergy Intermediate blisters, Uncoded 08/25/23 09:07 hives, itchiness, redness, rash Review of Systems Review of Systems: All systems reviewed & are unremarkable except as noted in HPI and below Constitutional: Constitutional: Reports chills, Reports fatigue and Denies fever(s) ENT: Reports system reviewed and no additional complaints, except as documented Cardiovascular: Cardiovascular: Reports no additional cardiovascular complaints Respiratory: Respiratory: Reports chest congestion, Reports cough and Reports dyspnea Gastrointestinal: Gastrointestinal: Reports no additional gastrointestinal complaints Musculoskeletal: Musculoskeletal: Reports no additional musculoskeletal complaints PMFSH Past Medical History Medical History Breast cancer Breast cancer metastasized to liver Cancer of right breast (1997) Status post mastectomy and chemo radiation. Metastatic disease to liver discovered in 2022. Change in bowel habits Chronic anemia Chronic kidney disease Chronic obstructive pulmonary disease Colon cancer screening Constipation Coronary artery disease Depression with anxiety Gastroesophageal reflux disease Hyperlipidemia Hypertension Hypothyroidism Surgical History Surgical History History of appendectomy History of bl
--- NOTE | 2023-09-24 08:35 | ADMGEN ---
This patient, Vania Betancourt, was admitted to 3 [facility] Surg Room 300-01 @ 0835. Patient/family oriented to hospital policies and general routines including ID bracelet, bed and alarms, visiting hours, pain management, procedures, bathroom and other care routines, personal items, smoking policy, room service/diet, and visiting hours. Information on how to activate the Rapid Response Team has been discussed. Patient/Family are encouraged to report perceived risks to care and to ask questions if they do not understand what they are told or what they should do.
--- NOTE | 2023-09-24 10:15 | PC.NURSE ---
This RN locked the pt's medications in the closet in the room (300).
[2023-09-24] MEDS: SODIUM CHLORIDE 0.9% IV 1,000 ML 125 ML IV CONT ×2 (10:50→16:47)
--- NOTE | 2023-09-24 16:07 | PM.IMHP ---
H&P: HPI History of Present Illness Date/Time: 09/24/23 16:07 Chief Complaint: Shortness of breath Narrative: 73yo female with breast cancer with mets to the liver, CAD s/p stent placement, COPD and HTN here for shortness of breath. Patient developed cough, shortness of breath and nausea over the past few weeks. She denies fever but has subjective chills off and on. She has not been eating much because of the nausea. She has been constipated. She did take medications for constipation with improvement with loose stools yesterday and today. No melena or hematochezia. She has been off of her home medications over the past few days due to the nausea. No chest pain. No hematuria but does have dysuria off and on. She has has chronic shortness of breath that is worse over the past few weeks. She has been having a cough productive of evans-green sputum. She called her oncologist who called in azithromycin and her last dose is today. She has been taking Tylenol but no other new medications. She is currently on Arimidex and Ibrance for her metastatic cancer. Last CT 09/08/2023 showed stable liver masses when compared to imaging from November 2022. She presented to the emergency room for evaluation. In the ED, she was tachycardic (117) but otherwise vital signs were stable. WBC and platelet count were normal. She had a mild macrocytic anemia with Hgb of 10. Sodium was 130, bicarb 18 (AG 18), BUN 74 with Cr 6.1. On September 05, BUN 35 and Cr 1.5. AST and ALT mildly elevated. CXR showing COPD and post-operative changes but no active pulmonary disease. EKG showed sinus tachycardia (114), KORTNEY, minimal Q waves in anerolateral leads and borderline ST-T wave changes in the high lateral leads. She was treated with Albuterol and IV fluids and admited for further care Review of Systems Review of Systems: All systems reviewed & are unremarkable except as noted in HPI and below PMFSH Past Medical History Medical History Breast cancer Breast cancer metastasized to liver Cancer of right breast (1997) Status post mastectomy and chemo radiation. Metastatic disease to liver discovered in 2022. Change in bowel habits Chronic anemia Chronic kidney disease Chronic obstructive pulmonary disease Colon cancer screening Constipation Coronary artery disease Depression with anxiety Gastroesophageal reflux disease Hyperlipidemia Hypertension Hypothyroidism Surgical History Surgical History History of appendectomy History of bladder repair surgery History of cardiac catheterization History of cholecystectomy (2012) History of coronary artery stent placement History of resection of small bowel (1979) History of right mastectomy (1997) History of sinus surgery History of tonsillectomy Family History Family History Mother Patient's mother is Family history of diabetes mellitus in first degree relative Family history of lung cancer Family history of congestive heart failure Father Family history of malignant neoplasm, Onset Age: 73 Patient's father is Social History Social History (Updated 09/24/23 @ 16:55 by Trent Cowart MD) Social History: Surrogate medical decision maker: Dixon Tomlinson, son. Code status: DNR Smoking packs per day: 1 Smoking cigarettes per day: 20.0 Years smoked: 50 Smoking pack-years: 50.00 Smoking status: Current some day smoker Second hand tobacco smoke exposure: Yes Alcohol intake: current Substance use: never Substance use type: does not use Do You Feel Safe in your Home?: Yes Lack of Transportation: No Lack of Food: Never True Current Housing: I Have Housing Concerned About Future Housing: No Difficulty Paying Gas/Electric Bills: No Difficulty Paying for Meds: No
[2023-09-24] MEDS: ONDANSETRON INJ 4 MG/2 ML VIAL IV PUSH (20:02)
[2023-09-24] MEDS: HEPARIN SODIUM 5,000 UNITS/ML VIAL 5000 UNITS SUB-Q (20:03)
[2023-09-24] MEDS: clonazePAM (*CRX) 0.5 MG TABLET PO (20:03)
[2023-09-24] MEDS: ALBUTEROL SULFATE NEB 2.5 MG/3 ML INH INHALATION (20:13)
[2023-09-24 22:30] LABS: Creatinine Urine 57.4 mg/dL
[2023-09-24 22:44] LABS: Potassium Urine Random 26.9 meq/L; Sodium Urine Random 68 meq/L
[2023-09-24 22:53] LABS: Appearance Urine Cloudy (Clear); Bacteria Urine Rare /hpf; Bilirubin Urine Negative (Negative); Blood Urine 1+ (Negative); Color Urine Yellow (Yellow); Glucose Urine UA Trace mg/dL (Negative); Ketones Urine Negative (Negative); Leukocyte Esterase Ur Trace LEU/UL (Negative); Need Manual Microscopic Reviewed; Nitrate Urine Negative (Negative); Protein Urine 2+ mg/dL (Negative); Specific Grav Ur 1.017 (1.001-1.035); Squamous Epithelial Cell Urine None Seen /hpf (Few); Urobilinogen Urine 0.2 mg/dL (<2.0); WBC Clumps Urine Present /HPF
[2023-09-24 22:55] LABS: Add Urine Microscopic? YES
[2023-09-24 23:12] LABS: Eosinophil Urine None Seen % (None Seen); Urine Eos QC 2nd Tech Confirmed
[2023-09-25] VITALS (16 sets, daily range): BP systolic 115–124; BP diastolic 43–58; PULSE 93–106; RESP 18–20; TEMP 36.3–37.1; O2SAT 83–100; BMI 18.5
[2023-09-25 00:18] LABS: Procalcitonin 3.5 ng/mL
[2023-09-25] MEDS: SODIUM CHLORIDE 0.9% IV 1,000 ML 125 ML IV CONT ×3 (00:32→17:37)
[2023-09-25] MEDS: ALBUTEROL SULFATE NEB 2.5 MG/3 ML INH INHALATION ×4 (02:06→20:45)
[2023-09-25] MEDS: LEVOTHYROXINE SODIUM 75 MCG TABLET PO (05:21)
[2023-09-25] MEDS: LINACLOTIDE 145 MCG CAPSULE PO (05:21)
[2023-09-25 06:40] LABS: Hematocrit 25.3 % (37.0-47.0); Hemoglobin 8.1 g/dL (12.0-15.0); Mean Corpuscular Hemoglobin 38.8 pg (26-34); Mean Corpuscular Volume 121.1 fl (80-100); Mean Platelet Volume 10.3 fl (7.4-10.4); Platelet Count Result 210 k/mm3 (150-375); Red Blood Count 2.09 M/mm3 (4.2-5.4); Red Cell Distribution Width 13.4 % (11.5-14.5); White Blood Count 4.5 K/mm3 (4.5-10.0)
[2023-09-25 07:05] LABS: Alanine Aminotransferase 35 U/L (6-35); Alkaline Phosphatase 85 U/L (38-126); Anion Gap 15 mmol/L (4-12); Aspartate Amino Transferase 49 U/L (14-36); Bilirubin,Total 0.4 mg/dL (0.2-1.3); Blood Urea Nitrogen 71 mg/dL (7-17); Calcium 6.4 mg/dL (8.4-10.2); Carbon Dioxide 14 mmol/L (22-30); Chloride 103 mmol/L (98-107); Estimated CRCL calculation 5 ml/min; Estimated Glomerular Filt Rate 6; Glucose 95 mg/dL (65-110); Magnesium 2.4 mg/dL (1.6-2.3); Phosphorus 4.3 mg/dL (2.5-4.5); Potassium 4.6 mmol/L (3.4-5.0); Sodium 132 mmol/L (137-145)
[2023-09-25 07:37] LABS: Band Neutrophils Percent 9 % (0-6); Lymphocytes Absolute Manual 0.22 K/mm3 (1.1-4.5); Metamyelocytes Percent 2 %; Monocytes Absolute Manual 0.31 K/mm3 (0.1-0.90); Monocytes Percent Manual 7 % (3-9); Neutrophils Absolute Manual 3.87 K/mm3 (1.7-7.2); Neutrophils Percent Manual 77 % (46-73); Platelet Estimate Adequate (Adequate); Total Cells Counted 100
[2023-09-25 07:38] LABS: Hypochromasia 1+; Schistocytes Rare
--- NOTE | 2023-09-25 08:02 | PM.CNNEP ---
Assessment and Plan Assessment and plan (1) Acute kidney injury: Code(s): N17.9 - Acute kidney failure, unspecified Status: Acute Assessment and Plan: Vania has acute kidney injury. Her creatinine generally runs between 1.2 and 1.5. Yesterday was up to 6.1 and today is 6.7 in spite of IV fluids. Urinalysis shows protein blood and few white cells. Urine electrolytes are non pre renal. This could be dehydration from her nausea and vomiting. If simply this, however, I would expect her kidney numbers to have gotten better. She is not on any new medications. She has not taken any nonsteroidal anti-inflammatory agents. I do not see that she has had any contrast according to the records. she has 2 kidneys according to the last CT scan of the abdomen. Possibly 1 isn't working well any other passed stone? She could have some sort of glomerulonephritis or interstitial nephritis. Rhabdomyolysis could be occurring as well. Her liver enzymes are little bit elevated. At this point will continue the IV fluids. Will check a renal ultrasound. Will check a CPK. (2) HTN (hypertension) with goal to be determined: Code(s): I10 - Essential (primary) hypertension Status: Acute Assessment and Plan: Blood pressure is under good control right now. (3) Coronary artery disease: Code(s): I25.10 - Atherosclerotic heart disease of [place] coronary artery without angina pectoris Status: Acute Assessment and Plan: No chest pain or cardiac symptoms. (4) Metastatic cancer to liver: Code(s): C78.7 - Secondary malignant neoplasm of liver and intrahepatic bile duct Status: Acute Assessment and Plan: She is on Arimidex and Ibrance. (5) Chronic kidney disease: Code(s): N18.9 - Chronic kidney disease, unspecified Status: Chronic Assessment and Plan: She has baseline creatinine of 1.3-1.5. Possibly due to hypertension. This is not been evaluated. Will get some serology an immunofixation. (6) Constipation: Code(s): K59.00 - Constipation, unspecified Status: Acute Assessment and Plan: This is a chronic problem. History of Present Illness Reason for Consult Consult date: 09/25/23 Chief Complaint Chief complaint: Acute Kidney Injury History of Present Illness Narrative: Vania is a very pleasant 73-year-old lady who has multiple medical problems with breast cancer with Mets to the liver, hypertension, COPD, coronary disease status post 2 stent placements at [facility] many years ago, chronic constipation on Linzess when she can get it, anemia, chronic kidney disease with a baseline creatinine of around 1.5, depression, hyperlipidemia, hypothyroidism. The patient says she was well until a few weeks ago when she started having problems with her constipation. she try to get Linzess but was unable to. She had some nausea and vomiting because of the constipation over the last few weeks. She then developed cough. She had sputum production but no blood. She called her oncologist to gave her a Z-Rizwan. She just finished this and she says she feels a little better with respect her cough but it is not gone. She continued to have nausea even up to yesterday but not so much today. She had her shortness of breath which gradually worsened over the last few days as well so she came to the ER. She was seen in the ER and found to have a very high BUN creatinine mildly elevated liver enzymes so she was admitted. He was given IV fluids overnight. She says she has made very little urine overnight in spite of getting the IV fluids. Yesterday her creatinine was 6.1 today her creatinine is up to 6.7. She denies any bloody urine foamy urine kidney stones bladder infections or pain with urination. She says that her son has kidney stones. She is not taking any nonsteroidal anti-inflammatory agents. Other than the Zithromax she has
[2023-09-25] MEDS: CALCIUM GLUCONATE 1,000 MG/10 ML VIAL 1000 MG IV PUSH (08:22)
[2023-09-25] MEDS: SODIUM BICARBONATE TAB 650 MG TABLET PO ×2 (08:23→17:38)
[2023-09-25] MEDS: PANTOPRAZOLE 40 MG TABLET PO (08:23)
[2023-09-25] MEDS: ROSUVASTATIN 20 MG TABLET 40 MG PO (08:23)
[2023-09-25] MEDS: CYANOCOBALAMIN 500 MCG TABLET PO (08:23)
[2023-09-25] MEDS: buPROPion HCL XL (24 HR) 150 MG TABCR 300 MG PO (08:23)
[2023-09-25] MEDS: HEPARIN SODIUM 5,000 UNITS/ML VIAL 5000 UNITS SUB-Q ×2 (08:24→20:26)
[2023-09-25] MEDS: ASPIRIN 81 MG ENTERIC TABLET PO (08:24)
[2023-09-25] MEDS: MIDODRINE HCL 2.5 MG TABLET PO (08:24)
[2023-09-25 08:58] LABS: Creatine Kinase 108 U/L (30-135)
[2023-09-25 09:06] LABS: Complement C3 113 mg/dL (88-165)
[2023-09-25 09:10] LABS: Erythrocyte Sedimentation Rate 139 mm/hr (0-20)
[2023-09-25 09:46] LABS: Parathyroid Intact 474.1 pg/mL (7.5-53.5)
--- NOTE | 2023-09-25 14:36 | PM.IMPN ---
Progress Note: A&P Assessment and Plan (1) Acute on chronic renal failure: Code(s): N17.9 - Acute kidney failure, unspecified; N18.9 - Chronic kidney disease, unspecified Status: Acute Assessment and Plan: Patient with underlying CKD with baseline creatinine recently running 1.2-1.5 range. Creatinine 6.1 on admission. BUN 74. Potassium is normal. She has metabolic acidosis with bicarb of 18 and anion gap of 18. Sodium is low 130 to suggest dehydration/prerenal. No recent contrast exposure. Consider post strep. She was given a fluid bolus and started on IV fluids. Cr 6.7 and she has poor UOP. ESR 139, bicarb 14 (AG 15), Ca 6.4, TCK 108, PCT 3.5, iPTH 474 UA concerning for UTI. FENa 5.8% to suggest intrinsic renal disease. Renal US showing normal kidneys Consider hepatorenal syndrome or ATN. Continue IV fluids. Nephrology consult Add bicarb. (2) Acute bronchitis: Code(s): J20.9 - Acute bronchitis, unspecified Status: Acute Assessment and Plan: Patient with productive cough. She just completed a course of azithromycin. Chest x-ray shows hyperinflation with flattened diaphragm and no evidence of infiltrative process to suggest pneumonia. Patient is dehydrated and has COPD so pneumonia could be hidden. Sputum Cx pending. Check urine antigens. Just finished abx so will hold off on adding Levaquin unless sputum Cx grows Monitor for improvement in cough. (3) Chronic obstructive pulmonary disease: Code(s): J44.9 - Chronic obstructive pulmonary disease, unspecified Status: Chronic Assessment and Plan: Patient with a history of COPD. Patient continues to smoke but has cut back. Few scattered wheezing which could be contributing to her cough. Continue Albuterol Nebs. Will add Prednisone. (4) Coronary artery disease: Code(s): I25.10 - Atherosclerotic heart disease of [place] coronary artery without angina pectoris Status: Acute Assessment and Plan: Patient with known coronary disease with history of stent placement. Continue aspirin and Crestor. LFTs mildly elevated and are trending down Will continue to monitor (5) Tobacco abuse: Code(s): Z72.0 - Tobacco use Status: Chronic Assessment and Plan: Patient continues to smoke a few cigarettes a day. Was congratulated on cutting back. (6) Hypocalcemia: Code(s): E83.51 - Hypocalcemia Status: Acute Assessment and Plan: Calcium 6.4. Corrected Ca 7.4. iPTH elevated at 474. Phos 4.3 Check VitD level Replace calcium (7) Breast cancer metastasized to liver: Code(s): C50.919 - Malignant neoplasm of unspecified site of unspecified female breast; C78.7 - Secondary malignant neoplasm of liver and intrahepatic bile duct Status: Chronic Assessment and Plan: Stable. CA15-3 level normal earlier this month. Will hold Ibrance since can cause decreased appetite, nausea. Hold anastrozole since can cause nausea, cough. (8) Anemia: Code(s): D64.9 - Anemia, unspecified Status: Acute Assessment and Plan: Hgb 10 on admission and has dropped to 8.1 related to IV fluids. Suspect chronic from cancer and from treatment. Check iron, B12. Plan DVT prophylaxis - heparin Code status -DNR Subjective Date/time seen: 09/25/23 14:36 Interval history: 73yo female with breast cancer with mets to the liver, CAD s/p stent placement, COPD and HTN here for shortness of breath and found to have BETI. Does not wear O2 at home but mentions that she has required O2 at night in the past (but no longe has O2 at night). She was hypoxic overnight last night and was started on O2. She feels hungry and sleepy. Had diarrhea but feels related to the linzess. Slept poorly last night. UOP has been decreased. No dysuria. Still with productive cough. Exam Narrative: AF 98.0 124/43 100 20 100% ra Gen - NARD Chest - coarse BS peter
[2023-09-25] MEDS: methylPREDNISolone SOD SUCC 125 MG VIAL 60 MG IV PUSH (15:10)
--- NOTE | 2023-09-25 15:18 | PCRCNOTE ---
Called Dr. Ptarick to discuss patient's oxygen needs. The plan is to leave the patient on some O2 since it's needed right now. Steroids were started and she's having a productive cough. Discussed the possibility of an Apnea Link but going to hold off and see if the steroids help her lungs first and then reevaluate her needs for O2.
[2023-09-25 15:58] LABS: Vitamin D 25 Hydroxy 52.1 ng/mL
[2023-09-25] MEDS: clonazePAM (*CRX) 0.5 MG TABLET PO (20:25)
[2023-09-26] VITALS (11 sets, daily range): BP systolic 123–168; BP diastolic 54–72; PULSE 90–111; RESP 18–26; TEMP 36.1–36.5; O2SAT 94–100
[2023-09-26] MEDS: SODIUM CHLORIDE 0.9% IV 1,000 ML 125 ML IV CONT (01:45)
[2023-09-26] MEDS: ALBUTEROL SULFATE NEB 2.5 MG/3 ML INH INHALATION ×3 (02:57→20:55)
[2023-09-26] MEDS: LEVOTHYROXINE SODIUM 75 MCG TABLET PO (06:06)
[2023-09-26 06:19] LABS: Basophils Percent Auto 0.6 % (0.2-1.2); Hematocrit 25.8 % (37.0-47.0); Hemoglobin 8.5 g/dL (12.0-15.0); Immature Granulocyte Absolute 0.28 K/mm3 (0.00-0.031); Immature Granulocyte Percent A 5.8 % (0-0.5); Lymphocytes Absolute Auto 0.09 K/mm3 (0.9-3.2); Lymphocytes Percent Auto 1.9 % (18.3-44.2); Mean Corpuscular HGB Conc 32.9 g/dl (32-36); Mean Corpuscular Hemoglobin 39.2 pg (26-34); Mean Corpuscular Volume 118.9 fl (80-100); Mean Platelet Volume 10.1 fl (7.4-10.4); Monocytes Absolute Auto 0.1 K/mm3 (0.1-0.6); Monocytes Percent Auto 1.3 % (2.6-8.5); Neutrophils Absolute Auto 4.3 K/mm3 (1.3-6.7); Neutrophils Percent Auto 90.4 % (45.5-73.1); Platelet Count Result 243 k/mm3 (150-375); Red Blood Count 2.17 M/mm3 (4.2-5.4); Red Cell Distribution Width 13.6 % (11.5-14.5); White Blood Count 4.8 K/mm3 (4.5-10.0)
[2023-09-26 06:31] LABS: Anion Gap 12 mmol/L (4-12); Blood Urea Nitrogen 75 mg/dL (7-17); Calcium 6.7 mg/dL (8.4-10.2); Carbon Dioxide 15 mmol/L (22-30); Chloride 105 mmol/L (98-107); Estimated CRCL calculation 5 ml/min; Estimated Glomerular Filt Rate 6; Glucose 196 mg/dL (65-110); Phosphorus 4.9 mg/dL (2.5-4.5); Potassium 5.5 mmol/L (3.4-5.0); Sodium 132 mmol/L (137-145)
[2023-09-26 06:46] LABS: Platelet Estimate Adequate (Adequate)
[2023-09-26 06:47] LABS: Anisocytosis 1+; Burr Cells 1+; Macrocytosis 2+ (NORMAL); Schistocytes None Seen
[2023-09-26 06:54] LABS: Magnesium 2.2 mg/dL (1.6-2.3)
[2023-09-26 07:10] LABS: Iron 53 ug/dL (37-170)
[2023-09-26 07:19] LABS: Percent Iron Saturation 27 % (20-50)
[2023-09-26 07:45] LABS: Vitamin B12 > 1000.0 pg/mL (239-931)
[2023-09-26] MEDS: SODIUM BICARBONATE TAB 650 MG TABLET PO ×2 (08:08→16:53)
[2023-09-26] MEDS: PANTOPRAZOLE 40 MG TABLET PO (08:09)
[2023-09-26] MEDS: buPROPion HCL XL (24 HR) 150 MG TABCR 300 MG PO (08:09)
[2023-09-26] MEDS: predniSONE 20 MG TABLET 40 MG PO (08:09)
[2023-09-26] MEDS: ROSUVASTATIN 20 MG TABLET 40 MG PO (08:09)
[2023-09-26] MEDS: MIDODRINE HCL 2.5 MG TABLET PO (08:10)
[2023-09-26] MEDS: HEPARIN SODIUM 5,000 UNITS/ML VIAL 5000 UNITS SUB-Q ×2 (08:10→20:50)
[2023-09-26] MEDS: CYANOCOBALAMIN 500 MCG TABLET PO (08:13)
--- NOTE | 2023-09-26 08:17 | PM.PNNEP ---
Progress Note: A&P Assessment and Plan (1) Acute kidney injury: Code(s): N17.9 - Acute kidney failure, unspecified Status: Acute Assessment and Plan: Vania has acute kidney injury. Her creatinine generally runs between 1.2 and 1.5. on admission it was up to 6.1 and then 6.7 and now 7.2 in spite of IV fluids. Urinalysis shows protein blood and few white cells. her last 3 urinalyses over the last couple of years have shown these. Her last urine culture was negative but that was 2 years ago. Urine electrolytes are non pre renal ultrasound was normal CPK is normal Sed rate is 139 and complements are normal so far. if the patient was dehydrated I would think her kidney function would be improving by now. No suspicious medications. there might be something infiltrative or inflammatory going on. At this point she still not making any urine and her BUN creatinine are very high. She does not have much in the way of uremic symptoms but I think she will eventually developed these unless she starts making urine And the numbers start coming down. I will give 2 doses of diuretics today just to see if we can have the kidneys turn the corner if she still does not make urine or if the numbers are worse then I think we should dialyze her tomorrow. I discussed the risks benefits alternatives and process of dialysis and the patient agrees to proceed if needed tomorrow. I will reach out to the surgeons to schedule her for a tunneled catheter tomorrow. If the numbers are suddenly better we can always hold off. We also discussed that she probably needs a kidney biopsy unless things get better as well. She is on aspirin now so we will hold this and do the biopsy on or Monday discussed with patient at length and also with surgery. 25minutes were spent in discussions with the patient and surgery (2) HTN (hypertension) with goal to be determined: Code(s): I10 - Essential (primary) hypertension Status: Acute Assessment and Plan: Blood pressure is under good control right now. (3) Coronary artery disease: Code(s): I25.10 - Atherosclerotic heart disease of [place] coronary artery without angina pectoris Status: Acute Assessment and Plan: No chest pain or cardiac symptoms. (4) Metastatic cancer to liver: Code(s): C78.7 - Secondary malignant neoplasm of liver and intrahepatic bile duct Status: Acute Assessment and Plan: She is on Arimidex and Ibrance. (5) Chronic kidney disease: Code(s): N18.9 - Chronic kidney disease, unspecified Status: Chronic Assessment and Plan: She has baseline creatinine of 1.3-1.5. Possibly due to hypertension. This is not been evaluated. Will get some serology an immunofixation. (6) Constipation: Code(s): K59.00 - Constipation, unspecified Status: Acute Assessment and Plan: This is a chronic problem. Subjective Date/time seen: 09/26/23 08:17 Interval history: Patient is alert. The food tastes terrible. She has not had nausea for the last couple of days. Still not making urine Review of Systems Cardiovascular: Cardiovascular: Reports no additional cardiovascular complaints Respiratory: Respiratory: Reports no additional respiratory complaints Gastrointestinal: Gastrointestinal: Reports no additional gastrointestinal complaints Genitourinary: Genitourinary: Reports no additional female genitourinary complaints Exam Narrative: WDWN in NAD skin no rash head ncat lungs clear cor reg no rub abd BS+ nontender and soft ext no edema. Objective Data Vital Signs Vital Signs: Vital Signs - 24 hr 09/25/23 08:30 09/25/23 14:00 09/25/23 14:00 Temperature Pulse Rate 93 103 H 103 H Respiratory Rate 20 20 Blood Pressure Pulse Oximetry 97 97 Oxygen Delivery Nasal Cannula Nasal Cannula Oxygen Flow Rate 2 1 F
[2023-09-26 08:32] LABS: Folic Acid 10.1 ng/mL (2.76->20)
[2023-09-26] MEDS: BUMETANIDE INJ 1 MG/4 ML VIAL 2 MG IV PUSH ×2 (10:49→16:55)
[2023-09-26] MEDS: SODIUM ZIRCONIUM CYCLOSILICATE 10 GM POWD.PACK PO (10:50)
[2023-09-26] MEDS: SODIUM CHLORIDE 0.9% IV 1,000 ML 50 ML IV CONT (10:53)
[2023-09-26 11:27] LABS: Total Volume 24 Hour Urine 40 ml
[2023-09-26 11:28] LABS: Total Volume 24 Hour Urine 40 ml
[2023-09-26 11:35] LABS: Total Protein Urine 24 Hr 51 mg/24hr (28-141); Total Protein Urine Random 128 mg/dL
[2023-09-26 12:01] LABS: Creatinine Urine 38.8 mg/dL
[2023-09-26 13:29] LABS: Potassium 4.8 mmol/L (3.4-5.0)
--- NOTE | 2023-09-26 13:32 | PCRCNOTE ---
Pt refused respiratory tx states she is nauseated
[2023-09-26 13:43] LABS: Kappa\\Lambda Light Chains 1.66 (0.26-1.65); Lambda Light Chain 54.5 mg/L (5.7-26.3)
--- NOTE | 2023-09-26 16:02 | PM.IMPN ---
Progress Note: A&P Assessment and Plan (1) Acute on chronic renal failure: Code(s): N17.9 - Acute kidney failure, unspecified; N18.9 - Chronic kidney disease, unspecified Status: Acute Assessment and Plan: Patient with underlying CKD with baseline creatinine recently running 1.2-1.5 range. Creatinine 6.1 on admission. BUN 74. Potassium was normal. She has metabolic acidosis with bicarb of 18 and anion gap of 18. Sodium is low 130 to suggest dehydration/prerenal. No recent contrast exposure. Consider post strep. She was given a fluid bolus and started on IV fluids. ESR 139, bicarb 14 (AG 15), Ca 6.4, TCK 108, PCT 3.5, iPTH 474. Urine eos negative. UA noted. FENa 5.8% to suggest intrinsic renal disease. Renal US showing normal kidneys Consider hepatorenal syndrome or ATN. Cr now 7.2 and she has poor UOP. Potassium 5.5. Bicarb 15 (AG 12). UCx pending. Lokelma given and repeat potassium normal Continue IV fluids. Nephrology consulted and appreciate their input. Add Rocephin for possible UTI (she has had prior therapy). Dialysis is being considered. Bumex given x2 doses. (2) Acute bronchitis: Code(s): J20.9 - Acute bronchitis, unspecified Status: Acute Assessment and Plan: Patient with productive cough. She just completed a course of azithromycin. Chest x-ray shows hyperinflation with flattened diaphragm and no evidence of infiltrative process to suggest pneumonia. Patient is dehydrated and has COPD so pneumonia could be hidden. Sputum Cx pending. Urine antigens ordered Just finished abx so will hold off on adding Levaquin unless sputum Cx grows something Prednisone added with improvement. Continue to monitor. (3) Chronic obstructive pulmonary disease: Code(s): J44.9 - Chronic obstructive pulmonary disease, unspecified Status: Chronic Assessment and Plan: Patient with a history of COPD. Patient continues to smoke but has cut back. Wheezing has resolved. Continue Albuterol Nebs. Continue prednisone (4) Coronary artery disease: Code(s): I25.10 - Atherosclerotic heart disease of [place] coronary artery without angina pectoris Status: Acute Assessment and Plan: Patient with known coronary disease with history of stent placement. Continue aspirin and Crestor. LFTs mildly elevated and are trending down Will continue to monitor (5) Tobacco abuse: Code(s): Z72.0 - Tobacco use Status: Chronic Assessment and Plan: Patient continues to smoke a few cigarettes a day. Was congratulated on cutting back. (6) Hypocalcemia: Code(s): E83.51 - Hypocalcemia Status: Acute Assessment and Plan: Calcium 6.4. Corrected Ca 7.4. iPTH elevated at 474. Phos 4.3. VitD 25 normal. Calcium replaced. Calcium 6.7 today and corrected at 7.7. Repeat (7) Breast cancer metastasized to liver: Code(s): C50.919 - Malignant neoplasm of unspecified site of unspecified female breast; C78.7 - Secondary malignant neoplasm of liver and intrahepatic bile duct Status: Chronic Assessment and Plan: Stable. CA15-3 level normal earlier this month. Will hold Ibrance since can cause decreased appetite, nausea. Hold anastrozole since can cause nausea, cough. (8) Anemia: Code(s): D64.9 - Anemia, unspecified Status: Acute Assessment and Plan: Hgb 10 on admission and has dropped to 8 range related to IV fluids. Suspect chronic from cancer and from treatment. B12 normal Iron studies noted. Follow Plan DVT prophylaxis - heparin Code status -DNR Subjective Date/time seen: 09/26/23 16:02 Interval history: 73yo female with breast cancer with mets to the liver, CAD s/p stent placement, COPD and HTN here for shortness of breath and found to have BETI. Does not wear O2 at home. Feels better. Slight chest pain with coughing. Cough is better. Exam Narrative: AF 97.0 132/54 1
[2023-09-26] MEDS: HYDROcodone/acetaminophen (*CRX) 5-325 MG TABLET 1 TAB PO (16:50)
[2023-09-26 19:37] LABS: Base Excess ABG -12.9 mEq/l (+/-2.0); Fractional Inspired Oxygen 28 %; Oxygen Content ABG 13.1 %vol (16.0-22.0); Oxygen Saturation ABG 95.5 % (95.0-100.0); Oxyhemoglobin 96.2 % THb (90.0-100.0); PCO2 ABG 43.2 mmHg (35.0-45.0); PO2 ABG 97.7 mmHg (80.0-100.0); PO2 FiO2 Ratio Arterial Blood 3.49 %; Total Hemoglobin 9.6 g/dL (12.0-18.0)
--- NOTE | 2023-09-26 19:40 | ECG_ITS ---
Test Date: 2023-09-26 20:56:38 Measurements Intervals Harper Rate: 111 P: 70 MO: 190 QRS: 40 QRSD: 91 T: 48 QT: 327 QTc: 446 Interpretive Statements SINUS TACHYCARDIA WITH OCCASIONAL SUPRAVENTRICULAR PREMATURE COMPLEXES MINIMAL Q WAVES- INF/LAT LEADS BASELINE ARTIFACT- I, II, III, AVR, AVL, AVF ABNORMAL ECG Compared to ECG 09/24/2023 06:58:21 NO SIGNIFICANT CHANGE Electronically Signed On 09-27-2023 06:34:10 CDT by Vinh Zavala D.O.
[2023-09-26 19:42] LABS: Site Drawn LEFT BRACHIAL; pH ABG 7.159 (7.350-7.450)
[2023-09-26 19:43] LABS: Device NASAL CANNULA
--- NOTE | 2023-09-26 20:27 | PM.EVENT ---
Event Note Event Note Event Note: 09/26/2023 at 20:25 I followed up on labs ordered by daytime provider. Patient's pH is 7.15 and the pCO2 was 43. The patient was not compensating for her metabolic acidosis. I ordered 2 amps of sodium bicarb push. I contacted Nephrology who agreed the patient would benefit from a bicarb drip I went and evaluated the patient. The patient was having some moderate wheezing on evaluation but no crackles. She is having mild tachypnea without accessory muscle use. She is on 2 L nasal cannula. She is chronically ill-appearing but not in any acute distress. The nurse that was at bedside had had the patient the day before and reported that on exam she thought the patient was wheezing more than it will she was yesterday. The daytime provider had already ordered 40 mg of prednisone daily. The patient is on scheduled nebulizer treatments. I will increase the frequency of the nebulizer treatments at least for short-term given her increased wheezing. Patient does report increased production of evans green mucus. of course wheezing could possibly be due to fluid overload but no evidence of fluid overload on chest x-ray (Personally reviewed and interpreted. Agreed With radiologist interpretation). Chest x-ray suggest possible atelectasis versus pneumonia. Patient was just started on Rocephin earlier in the day. Nursing staff told me that this had not yet been administered. I have asked for this to be started. Patient does have anasarca and extremity edema from 3rd spacing. I will start the patient on bicarb drip at 50 mL an hour and monitor fluid and respiratory status closely. Diagnosis: 1. Acute renal failure with severe metabolic acidosis without respiratory compensation 2. COPD exacerbation with possible underlying pneumonia 30 minute spent in critical care activities. Due to a high probability of clinically significant, life threatening deterioration, the patient required my highest level of preparedness to intervene emergently and I personally spent this critical care time directly and personally managing the patient. This critical care time included obtaining a history; examining the patient; pulse oximetry; ordering and review of studies; arranging urgent treatment with development of a management plan; evaluation of patient's response to treatment; frequent reassessment; and discussions with other providers. It was exclusive of separately billable procedures and treating other patients and teaching time. Please see Assessment and Plan section and the rest of the note for further information on patient assessment and treatment.
[2023-09-26] MEDS: SODIUM BICARBONATE 8.4% 50 MEQ/50 ML SYRINGE IV PUSH ×2 (20:33)
[2023-09-26] MEDS: clonazePAM (*CRX) 0.5 MG TABLET PO (20:50)
[2023-09-26 21:09] LABS: Troponin I 0.049 ng/mL (0.000-0.034)
[2023-09-26] MEDS: CALCIUM GLUC 1,000 MG/NS 50 ML 1,000 MG/50 ML BAG 100 MG IVPB (21:51)
[2023-09-26] MEDS: AZITHROMYCIN 500 MG/NS 250 ML 500 MG/250 ML BAG 250 MG IVPB (22:39)
[2023-09-27] VITALS (31 sets, daily range): BP systolic 122–176; BP diastolic 60–102; PULSE 72–121; RESP 18–20; TEMP 36.3–37; O2SAT 93–100
[2023-09-27] MEDS: SODIUM BICARBONATE 8.4% 150 MEQ in DEXTROSE 5% 1,000 ML 950 ML 50 MEQ IV CONT ×2 (00:29→23:36)
[2023-09-27 00:51] LABS: Troponin I 0.052 ng/mL (0.000-0.034)
[2023-09-27] MEDS: ALBUTEROL SULFATE NEB 2.5 MG/3 ML INH INHALATION ×3 (02:17→13:08)
[2023-09-27] MEDS: LEVOTHYROXINE SODIUM 75 MCG TABLET PO (05:56)
[2023-09-27 06:54] LABS: Basophils Percent Auto 0.2 % (0.2-1.2); Hematocrit 25.4 % (37.0-47.0); Hemoglobin 8.4 g/dL (12.0-15.0); Immature Granulocyte Absolute 0.14 K/mm3 (0.00-0.031); Immature Granulocyte Percent A 1.5 % (0-0.5); Lymphocytes Absolute Auto 0.19 K/mm3 (0.9-3.2); Mean Corpuscular HGB Conc 33.1 g/dl (32-36); Mean Corpuscular Volume 114.9 fl (80-100); Monocytes Absolute Auto 0.6 K/mm3 (0.1-0.6); Neutrophils Absolute Auto 8.7 K/mm3 (1.3-6.7); Neutrophils Percent Auto 90.3 % (45.5-73.1); Platelet Count Result 253 k/mm3 (150-375); Red Blood Count 2.21 M/mm3 (4.2-5.4); Red Cell Distribution Width 13.3 % (11.5-14.5); White Blood Count 9.6 K/mm3 (4.5-10.0)
[2023-09-27 07:14] LABS: Albumin Level 2.9 g/dL (3.5-5.1); Anion Gap 12 mmol/L (4-12); Blood Urea Nitrogen 83 mg/dL (7-17); Carbon Dioxide 20 mmol/L (22-30); Chloride 101 mmol/L (98-107); Estimated CRCL calculation 4 ml/min; Estimated Glomerular Filt Rate 5; Glucose 154 mg/dL (65-110); Magnesium 2.1 mg/dL (1.6-2.3); Phosphorus 4.7 mg/dL (2.5-4.5); Potassium 4.7 mmol/L (3.4-5.0); Sodium 133 mmol/L (137-145)
[2023-09-27 07:31] LABS: Anisocytosis 1+; Macrocytosis 2+ (NORMAL); Platelet Estimate Adequate (Adequate); Poikilocytosis 1+
[2023-09-27 07:32] LABS: Schistocytes None Seen
--- NOTE | 2023-09-27 09:53 | PM.CNGS ---
Assessment and Plan Assessment and plan (1) Acute on chronic renal failure: Code(s): N17.9 - Acute kidney failure, unspecified; N18.9 - Chronic kidney disease, unspecified Status: Acute Assessment and Plan: Patient admitted with acute kidney injury on chronic kidney disease. Nephrology following and her creatinine continues get worse despite medical management. Nephrology is requesting placement of a tunneled hemodialysis catheter to initiate hemodialysis. I discussed the details of the procedure, risks, benefits, alternatives, and expected outcomes with the patient. She agrees to proceed. Will keep her NPO for now and add her to the surgery schedule this afternoon for insertion of tunneled hemodialysis catheter by Dr. Soria. (2) Chronic obstructive pulmonary disease: Code(s): J44.9 - Chronic obstructive pulmonary disease, unspecified Status: Chronic Assessment and Plan: Being treated for COPD exacerbation and possible pneumonia. (3) Breast cancer metastasized to liver: Code(s): C50.919 - Malignant neoplasm of unspecified site of unspecified female breast; C78.7 - Secondary malignant neoplasm of liver and intrahepatic bile duct Status: Chronic Assessment and Plan: Hx of breast cancer in 1997 s/p right mastectomy, chemo/radiation therapy. Found to have liver metastasis more recently and is taking anastrozole and palbociclib orally. (4) Coronary artery disease: Code(s): I25.10 - Atherosclerotic heart disease of [place] coronary artery without angina pectoris Status: Acute Assessment and Plan: Remote history of CAD with stent placement in 1999 and 2001. She is not taking any antiplatelets, other than baby aspirin which is held, and not on any anticoagulation. (5) Anemia: Code(s): D64.9 - Anemia, unspecified Status: Acute Assessment and Plan: Hemoglobin lower than her baseline chronic anemia with a hemoglobin of 8.4 today. Will order type and screen to be up to date preoperatively. (6) Hypocalcemia: Code(s): E83.51 - Hypocalcemia Status: Acute Assessment and Plan: Calcium as low as 6.4 and replaced with IV calcium gluconate yesterday, up to 7.0 today. Plan I have discussed the patient's case and plan of care with Dr. Soria. History of Present Illness Consult details Consult date: 09/27/23 Reason for consult: other (Placement tunneled dialysis catheter) Requesting physician: Efren Davis MD Narrative: This is a 73-year-old woman with a history of breast cancer with Mets to the liver, CAD status post remote history of stent placement, COPD, chronic kidney disease, and hypertension, who presented to the ED a few days ago for shortness of breath. Workup revealed acute kidney injury and mildly elevated liver enzymes. She was admitted in the setting and nephrology was consulted. She received IV fluid hydration and has had low urine output. Nephrology has also tried diuresing her, without much improvement. Her baseline creatinine is around 1.5. On admission, BUN was 74 and creatinine 6.1. Her creatinine has continued to rise to 8.0 today. She still has low urine output. Nephrology has consulted our service for placement of a tunneled hemodialysis catheter to initiate hemodialysis. She is now seen in surgical consultation on the medical floor. She denies ever having hemodialysis in the past. She does have a history of breast cancer status post right mastectomy, radiation, and chemotherapy in 1997. She was found to have liver metastasis in 2022 and is currently being treated with oral therapy, palbociclib and anastozole. These are currently on hold. She does not currently have a Port-a-cath and denies ever having a Port in the past. She denies ever having a central venous catheter in the past for any reason. To note, she also has evidence of uncompensated metabolic acidosis on blood gas last night with a pH of 7.15 and she had increasing
[2023-09-27 10:02] LABS: Hepatitis B Surface Antigen Negative (Negative)
[2023-09-27 10:07] LABS: Hepatitis B Core IgM Result Negative (Negative)
[2023-09-27 10:19] LABS: Hepatitis B Surface Anti Res Negative
--- NOTE | 2023-09-27 11:57 | PM.PNNEP ---
Progress Note: A&P Assessment and Plan (1) Acute kidney injury: Code(s): N17.9 - Acute kidney failure, unspecified Status: Acute Assessment and Plan: Vania has acute kidney injury. Her creatinine generally runs between 1.2 and 1.5. on admission it was up to 6.1 and then 6.7 and now 7.2 in spite of IV fluids. Urinalysis shows protein blood and few white cells. her last 3 urinalyses over the last couple of years have shown these. Her last urine culture was negative but that was 2 years ago. Urine electrolytes are non pre renal ultrasound was normal CPK is normal Sed rate is 139 and complements are normal so far. The patient did not respond to the diuretics last night. We will do dialysis today and tomorrow to get the numbers down. I asked the patient if she had any more questions about dialysis or the catheter placement and she did not. We can do a biopsy on Monday if things have not improved yet. 25minutes were spent discussing with the patient, surgery, and the dialysis nurse apart from clinical activity. the patient may need more dialysis after discharge. I talked with egg caser as well to make arrangements. (2) HTN (hypertension) with goal to be determined: Code(s): I10 - Essential (primary) hypertension Status: Acute Assessment and Plan: Blood pressure is under good control right now. It is a little bit more labile running 120-170. Usually though it is been in the 120s and 130s. (3) Coronary artery disease: Code(s): I25.10 - Atherosclerotic heart disease of [place] coronary artery without angina pectoris Status: Acute Assessment and Plan: No chest pain or cardiac symptoms. (4) Metastatic cancer to liver: Code(s): C78.7 - Secondary malignant neoplasm of liver and intrahepatic bile duct Status: Acute Assessment and Plan: She is on Arimidex and Ibrance long-term, however these are on hold now. (5) Chronic kidney disease: Code(s): N18.9 - Chronic kidney disease, unspecified Status: Chronic Assessment and Plan: She has baseline creatinine of 1.3-1.5. Possibly due to hypertension. This is not been evaluated. Will get some serology an immunofixation. (6) Constipation: Code(s): K59.00 - Constipation, unspecified Status: Acute Assessment and Plan: This is a chronic problem. (7) Metabolic acidosis: Code(s): E87.20 - Acidosis, unspecified Status: Acute Assessment and Plan: The patient has a metabolic acidosis. This was present on admission. The anion gap has been normal. She has been getting sodium bicarbonate by mouth and that improved it a little bit. Unfortunate she had a low pH because of insufficient respiratory compensation. So the patient is getting IV bicarb now. Once the dialysis starts we can stop the IV bicarb drip and correct the CO2 with the dialysis. Will continue the p.o. bicarb. Subjective Date/time seen: 09/27/23 11:57 Interval history: Patient is alert. She became short of breath last night. Her blood gas showed acidosis and so she was placed on a bicarb drip. This morning she feels a little bit better. No chest pain. She is still not eating very well. Food just does not taste right. We discussed that even though she got diuretics yesterday her urine output was still low. Will proceed with dialysis today. I talked at length with surgery and they are working her in this afternoon. I also talked at length with the dialysis nurse who knows that she will need dialysis this afternoon as well. Exam Narrative: WDWN in NAD skin no rash head ncat lungs clear to auscultation cor reg no rub or gallop abd BS+ nontender and soft ext no edema. Objective Data Vital Signs Vital Signs: Vital Signs - 24 hr 09/26/23 14:00 09/26/23 18:39 09/26/23 20:55 Temperature 97.0 F L Pulse Rate 110 H 107 H 111 H Respiratory Rate 2
--- NOTE | 2023-09-27 13:06 | PM.IMPN ---
Progress Note: A&P Assessment and Plan (1) Acute on chronic renal failure: Code(s): N17.9 - Acute kidney failure, unspecified; N18.9 - Chronic kidney disease, unspecified Status: Acute Assessment and Plan: Patient with underlying CKD with baseline creatinine recently running 1.2-1.5 range. Creatinine 6.1 on admission. BUN 74. Potassium was normal. She has metabolic acidosis with bicarb of 18 and anion gap of 18. Sodium is low 130 to suggest dehydration/prerenal. No recent contrast exposure. Consider post strep. She was given a fluid bolus and started on IV fluids. ESR 139, bicarb 14 (AG 15), Ca 6.4, TCK 108, PCT 3.5, iPTH 474. Urine eos negative. UA noted. FENa 5.8% to suggest intrinsic renal disease. Renal US showing normal kidneys Consider hepatorenal syndrome or ATN. Cr now 7.2 and she has poor UOP. Potassium 5.5. Bicarb 15 (AG 12). UCx pending. Lokelma given and repeat potassium normal Continue IV fluids. Nephrology consulted and appreciate their input. Add Rocephin for possible UTI (she has had prior therapy). Dialysis is being considered. Bumex given x2 doses. bumex again today dc sodium bicarbonate drip due to volume overload pt going for dialysis cath placement today (2) Acute bronchitis: Code(s): J20.9 - Acute bronchitis, unspecified Status: Acute Assessment and Plan: Patient with productive cough. She just completed a course of azithromycin. Chest x-ray shows hyperinflation with flattened diaphragm and no evidence of infiltrative process to suggest pneumonia. Patient is dehydrated and has COPD so pneumonia could be hidden. Sputum Cx pending. Urine antigens ordered Just finished abx so will hold off on adding Levaquin unless sputum Cx grows something Prednisone added with improvement. Continue to monitor. (3) Chronic obstructive pulmonary disease: Code(s): J44.9 - Chronic obstructive pulmonary disease, unspecified Status: Chronic Assessment and Plan: Patient with a history of COPD. Patient continues to smoke but has cut back. Wheezing has resolved. Continue Albuterol Nebs. Continue prednisone (4) Coronary artery disease: Code(s): I25.10 - Atherosclerotic heart disease of [place] coronary artery without angina pectoris Status: Acute Assessment and Plan: Patient with known coronary disease with history of stent placement. Continue aspirin and Crestor. LFTs mildly elevated and are trending down Will continue to monitor (5) Tobacco abuse: Code(s): Z72.0 - Tobacco use Status: Chronic Assessment and Plan: Patient continues to smoke a few cigarettes a day. Was congratulated on cutting back. (6) Hypocalcemia: Code(s): E83.51 - Hypocalcemia Status: Acute Assessment and Plan: Calcium 6.4. Corrected Ca 7.4. iPTH elevated at 474. Phos 4.3. VitD 25 normal. Calcium replaced. Calcium 6.7 today and corrected at 7.7. watch labs in hospital (7) Breast cancer metastasized to liver: Code(s): C50.919 - Malignant neoplasm of unspecified site of unspecified female breast; C78.7 - Secondary malignant neoplasm of liver and intrahepatic bile duct Status: Chronic Assessment and Plan: Stable. CA15-3 level normal earlier this month. Will hold Ibrance since can cause decreased appetite, nausea. Hold anastrozole since can cause nausea, cough. (8) Anemia: Code(s): D64.9 - Anemia, unspecified Status: Acute Assessment and Plan: Hgb 10 on admission and has dropped to 8 range related to IV fluids. Suspect chronic from cancer and from treatment. B12 normal Iron studies noted. Follow Plan DVT prophylaxis - heparin Code status -DNR Subjective Date/time seen: 09/27/23 13:06 Interval history: 73yo female with breast cancer with mets to the liver, CAD s/p stent placement, COPD and HTN here for shortness of breath and found to have BETI. Pt go
[2023-09-27 13:21] LABS: Hepatitis C Virus Antibody Negative (Negative)
[2023-09-27] MEDS: ONDANSETRON INJ 4 MG/2 ML VIAL IV PUSH ×3 (15:14→23:29)
[2023-09-27 15:17] LABS: Complement Total CH50 >60 U/mL (31-60)
[2023-09-27] MEDS: BUMETANIDE INJ 1 MG/4 ML VIAL 2 MG IV PUSH (15:21)
[2023-09-27 15:46] LABS: Troponin I 0.036 ng/mL (0.000-0.034)
[2023-09-27] MEDS: LIDO 1%/EPINEPHRINE 1:100,000 20 ML VIAL 5 ML INFILTRATE (16:30)
[2023-09-27] MEDS: SODIUM BICARBONATE TAB 650 MG TABLET PO (17:01)
[2023-09-27] MEDS: SODIUM ZIRCONIUM CYCLOSILICATE 10 GM POWD.PACK PO (17:01)
--- NOTE | 2023-09-27 17:06 | W.PM.PROC2 ---
Procedure Note - Detailed Date of Procedure 09/27/23 Pre-op Diagnosis Acute Kidney Injury, End-stage renal disease Post-op Diagnosis Same Procedure Performed Placement of non tunneled temporary [place] hemodialysis catheter left femoral vein Surgeon Rey Soria MD Anesthesia Local Indications Patient is a 73-year-old female who has renal insufficiency and was admitted to the hospital recently with fluid overload. She apparently has acute renal injury and likely acute on chronic renal failure and maybe at end-stage renal disease now. Placement of a tunneled hemodialysis catheter has been delayed until tomorrow due to the fact she had some eat earlier today. I spoke with Nephrology and they feel that she needs hemodialysis urgently this evening and so I am going to place a non tunneled temporary [place] hemodialysis catheter in the left groin so they can do the hemodialysis this evening. Findings None Description of Procedure After informed consent was obtained patient placed supine in the hospital room bed. A time-out was then performed after exposing the left groin region. The area was then prepped and draped in the usual sterile fashion. 1% lidocaine without epinephrine was injected just medial to the palpable left common femoral pulse. After adequate local anesthesia was achieved of the area I then used a long 18gauge spinal needle to percutaneously cannulate the left common femoral vein without any difficulty. There was prompt return dark venous appearing blood. A guidewire was advanced through the needle into the left femoral vein and subsequently into the left iliac vein. The needle was removed. I then enlarged the insertion site of the needle with a scalpel and then advanced serial dilators over the guidewire to enlarge the venotomy. Lastly, a non tunneled temporary hemodialysis [place] catheter measuring 16cm was advanced over the guidewire into the left common femoral vein without any difficulty. Guidewire was removed leaving the catheter in place. Catheter was then secured at the skin level with 2-0 silk sutures. All 3 ports the catheter were then aspirated and flushed with heparinized saline solution. There was then cleaned and then a sterile dressing was applied. The patient tolerated the procedure well no complications. All sponges, needles, and instrument counts were correct at the end procedure. EBL was _10__cc. The patient was awakened and taken to recovery in stable and satisfactory condition. Implants Non tunneled [place] hemodialysis catheter with 3rd pigtail port, 16cm in length left femoral vein Estimated Blood Loss 10 Drains No Packing No Pathology None sent Complications No immediate complications Condition Stable Disposition PACU [facility] Billing Surgery - Charge Forward: Surgery Billing
[2023-09-27 17:48] LABS: Creat 24 Hr 0.31 g/24 h (0.50-2.15); Pro/Creat Ratio 5220 mg/g creat (<150); Protein,total, 24 Hr Ur 1620 mg/24 h (<150)
[2023-09-27] MEDS: EPOETIN ALFA-EPBX 10,000 UNITS/ML VIAL 10000 UNITS IV PUSH (20:29)
--- NOTE | 2023-09-27 20:53 | PCRCNOTE ---
Pt in dialysis for 3 hours, RT will check with patient when she returns to her room regarding scheduled breathing tx.
[2023-09-27] MEDS: HEPARIN SODIUM 1,000 UNITS/ML VIAL 2000 UNITS (23:26)
[2023-09-27] MEDS: HEPARIN SODIUM 5,000 UNITS/ML VIAL 5000 UNITS SUB-Q (23:33)
[2023-09-27] MEDS: clonazePAM (*CRX) 0.5 MG TABLET PO (23:33)
[2023-09-27] MEDS: AZITHROMYCIN 500 MG/NS 250 ML 500 MG/250 ML BAG 250 MG IVPB (23:36)
--- NOTE | 2023-09-27 23:38 | PC.NURSE ---
patient left floor around 19:30 for hemodialysis. patient returned at 23:30. per [employer] operator, patient had 2L removed
[2023-09-28] VITALS (36 sets, daily range): BP systolic 94–141; BP diastolic 38–96; PULSE 56–117; RESP 13–22; TEMP 36.2–37.2; O2SAT 91–100
[2023-09-28] MEDS: ALBUTEROL SULFATE NEB 2.5 MG/3 ML INH INHALATION ×2 (02:36→14:37)
[2023-09-28] MEDS: LEVOTHYROXINE SODIUM 75 MCG TABLET PO (05:34)
[2023-09-28] MEDS: ONDANSETRON INJ 4 MG/2 ML VIAL IV PUSH ×4 (05:35→20:50)
[2023-09-28] MEDS: HYDROcodone/acetaminophen (*CRX) 5-325 MG TABLET 1 TAB PO (05:42)
[2023-09-28] MEDS: SODIUM CHLORIDE 0.9% IV 1,000 ML 999 ML IV CONT (07:00)
[2023-09-28 07:02] LABS: Hemoglobin 8.2 g/dL (12.0-15.0); Mean Corpuscular HGB Conc 34.2 g/dl (32-36); Mean Corpuscular Hemoglobin 39.2 pg (26-34); Mean Corpuscular Volume 114.8 fl (80-100); Platelet Count Result 201 k/mm3 (150-375); Red Blood Count 2.09 M/mm3 (4.2-5.4); Red Cell Distribution Width 13.4 % (11.5-14.5); White Blood Count 7.2 K/mm3 (4.5-10.0)
[2023-09-28 07:18] LABS: Albumin Level 2.8 g/dL (3.5-5.1); Anion Gap 10 mmol/L (4-12); Blood Urea Nitrogen 59 mg/dL (7-17); Calcium 6.7 mg/dL (8.4-10.2); Carbon Dioxide 29 mmol/L (22-30); Chloride 95 mmol/L (98-107); Estimated CRCL calculation 5 ml/min; Estimated Glomerular Filt Rate 6; Glucose 104 mg/dL (65-110); Phosphorus 3.9 mg/dL (2.5-4.5); Potassium 3.9 mmol/L (3.4-5.0); Sodium 134 mmol/L (137-145)
[2023-09-28] MEDS: ROSUVASTATIN 20 MG TABLET 40 MG PO (08:30)
[2023-09-28] MEDS: MIDODRINE HCL 2.5 MG TABLET PO (08:30)
[2023-09-28] MEDS: buPROPion HCL XL (24 HR) 150 MG TABCR 300 MG PO (08:30)
[2023-09-28] MEDS: PANTOPRAZOLE 40 MG TABLET PO (08:31)
[2023-09-28] MEDS: SODIUM BICARBONATE TAB 650 MG TABLET PO (08:31)
[2023-09-28] MEDS: HEPARIN SODIUM 5,000 UNITS/ML VIAL 5000 UNITS SUB-Q ×2 (08:31→20:49)
[2023-09-28] MEDS: CYANOCOBALAMIN 500 MCG TABLET PO (08:31)
[2023-09-28] MEDS: predniSONE 20 MG TABLET 40 MG PO (08:36)
--- NOTE | 2023-09-28 09:36 | WPDANESPN ---
Anes - Prog Note Post-Op Date/Time: 09/28/23 09:36 Cardiovascular status: normal Respiratory status: normal Airway patency: baseline Mental status: baseline Post-Op hydration status: normal Vital Signs: Last Vital Signs Temp 36.2 C L 09/28/23 06:00 Pulse 107 H 09/28/23 06:00 Resp 20 09/28/23 06:00 BP 141/66 H 09/28/23 06:00 Pulse Ox 98 09/28/23 06:00 O2 Del Method Nasal Cannula 09/28/23 02:51 O2 Flow Rate 1 09/28/23 02:51 FiO2 24 09/25/23 15:12 Pain Score (VAS): 0 I/O: Intake & Output 09/27/23 09/28/23 09/28/23 23:59 07:59 15:59 Intake Total 1100 240 Output Total 2000 100 Balance -901 140 Laboratory Tests 09/28/23 05:57 09/28/23 05:57 09/25/23 09/25/23 09/27/23 08:39 10:56 05:53 WBC RBC Hgb Hct MCV MCH MCHC RDW Plt Count MPV Sodium Potassium Chloride Carbon Dioxide Anion Gap BUN Creatinine Estim Creat Clear Calc Estimated GFR Glucose Calcium Phosphorus Troponin I Albumin U Protein 24 Hr Presump 1620 H Tot Complement (CH50) >60 H Hep Bs Antigen Negative Hep Bs Antibody Negative Hep B Core IgM Ab Negative Hepatitis C Ab Screen Negative Blood Type Antibody Screen 09/27/23 09/27/23 09/28/23 10:23 14:59 05:57 WBC 7.2 RBC 2.09 L Hgb 8.2 L Hct 24.0 L MCV 114.8 H MCH 39.2 H MCHC 34.2 RDW 13.4 Plt Count 201 MPV 10.0 Sodium 134 L Potassium 3.9 Chloride 95 L Carbon Dioxide 29 Anion Gap 10 BUN 59 H D Creatinine 6.80 H Estim Creat Clear Calc 5 Estimated GFR 6 L Glucose 104 Calcium 6.7 L Phosphorus 3.9 Troponin I 0.036 H* Albumin 2.8 L U Protein 24 Hr Presump Tot Complement (CH50) Hep Bs Antigen Hep Bs Antibody Hep B Core IgM Ab Hepatitis C Ab Screen Blood Type A Positive Antibody Screen Negative Microbiology 09/24/23 17:37 Sputum Sputum Culture - Final Post-procedural complaints: none Patient Feedback: Patient satisfied with anesthetic care.
--- NOTE | 2023-09-28 11:17 | PM.PNNEP ---
Progress Note: A&P Assessment and Plan (1) Acute kidney injury: Code(s): N17.9 - Acute kidney failure, unspecified Status: Acute Assessment and Plan: Vania has acute kidney injury. Her creatinine generally runs between 1.2 and 1.5. on admission it was up to 6.1 and then 6.7 and now 7.2 in spite of IV fluids. Urinalysis shows protein blood and few white cells. her last 3 urinalyses over the last couple of years have shown these. Her last urine culture was negative but that was 2 years ago. Urine electrolytes are non pre renal ultrasound was normal CPK is normal Sed rate is 139 and complements are normal so far. Urine output is still low. Only 100cc overnight. We will do dialysis today and then again on Monday. Will go ahead and schedule her for kidney biopsy tomorrow. (2) HTN (hypertension) with goal to be determined: Code(s): I10 - Essential (primary) hypertension Status: Acute Assessment and Plan: Blood pressure is better with the removal of the fluid. No need for blood pressure meds right now. Is not on any currently. (3) Coronary artery disease: Code(s): I25.10 - Atherosclerotic heart disease of [place] coronary artery without angina pectoris Status: Acute Assessment and Plan: No chest pain or cardiac symptoms. (4) Metastatic cancer to liver: Code(s): C78.7 - Secondary malignant neoplasm of liver and intrahepatic bile duct Status: Acute Assessment and Plan: She is on Arimidex and Ibrance long-term, however these are on hold now. (5) Chronic kidney disease: Code(s): N18.9 - Chronic kidney disease, unspecified Status: Chronic Assessment and Plan: She has baseline creatinine of 1.3-1.5. Possibly due to hypertension. This is not been evaluated. Will get some serology an immunofixation. (6) Constipation: Code(s): K59.00 - Constipation, unspecified Status: Acute Assessment and Plan: This is a chronic problem. (7) Metabolic acidosis: Code(s): E87.20 - Acidosis, unspecified Status: Acute Assessment and Plan: The patient has a metabolic acidosis. This was present on admission. The anion gap has been normal. She has been getting sodium bicarbonate by mouth and that improved it a little bit. Unfortunate she had a low pH because of insufficient respiratory compensation. So the patient is getting IV bicarb now. Once the dialysis starts we can stop the IV bicarb drip and correct the CO2 with the dialysis. Will continue the p.o. bicarb. Subjective Date/time seen: 09/28/23 11:17 Interval history: Patient feels about the same. She received dialysis last evening and got some fluid off. She is getting dialysis again today. It has been going well so far. Her blood pressure is a little bit low. She will get some albumin She was seen at 10:45 a.m. Exam Narrative: WDWN in NAD skin no rash head ncat lungs clear bilaterally cor reg no rub or gallop abd BS+ nontender and soft ext no edema or cyanosis. Objective Data Vital Signs Vital Signs: Vital Signs - 24 hr 09/27/23 13:08 09/27/23 13:17 09/27/23 13:49 Temperature 98.1 F Pulse Rate 105 H 106 H 107 H Respiratory Rate 20 20 18 Blood Pressure 154/61 H Pulse Oximetry 100 Oxygen Delivery Room Air Oxygen Flow Rate 09/27/23 12:00 09/27/23 16:00 09/27/23 19:44 Temperature Pulse Rate 101 H 105 H Respiratory Rate Blood Pressure Pulse Oximetry Oxygen Delivery Oxygen Flow Rate 2 09/27/23 19:44 09/27/23 20:00 09/27/23 21:00 Temperature 97.9 F Pulse Rate 107 H 111 H 79 Respiratory Rate 18 Blood Pressure 168/72 H 169/83 H 174/76 H Pulse Oximetry 100 Oxygen Delivery Oxygen Flow Rate 09/27/23 20:15 09/27/23 20:30 09/27/23 20:45 Temperature Pulse Rate 108 H 77 83 Respiratory Rate Blood Pressure 164/77 H 157/76 H 168/67 H Pulse
[2023-09-28] MEDS: EPOETIN ALFA-EPBX 10,000 UNITS/ML VIAL 10000 UNITS IV PUSH (11:36)
--- NOTE | 2023-09-28 14:39 | PM.IMPN ---
Progress Note: A&P Assessment and Plan (1) Acute on chronic renal failure: Code(s): N17.9 - Acute kidney failure, unspecified; N18.9 - Chronic kidney disease, unspecified Status: Acute Assessment and Plan: Patient with underlying CKD with baseline creatinine recently running 1.2-1.5 range. Creatinine 6.1 on admission. BUN 74. Potassium was normal. She has metabolic acidosis with bicarb of 18 and anion gap of 18. Sodium is low 130 to suggest dehydration/prerenal. No recent contrast exposure. Consider post strep. She was given a fluid bolus and started on IV fluids. ESR 139, bicarb 14 (AG 15), Ca 6.4, TCK 108, PCT 3.5, iPTH 474. Urine eos negative. UA noted. FENa 5.8% to suggest intrinsic renal disease. Renal US showing normal kidneys Consider hepatorenal syndrome or ATN. Cr now 7.2 and she has poor UOP. Potassium 5.5. Bicarb 15 (AG 12). UCx pending. Lokelma given and repeat potassium normal Continue IV fluids. Nephrology consulted and appreciate their input. Add Rocephin for possible UTI (she has had prior therapy). Dialysis is being considered. Bumex given x2 doses. bumex again today dc sodium bicarbonate drip due to volume overload pt going for dialysis cath placement today around 3 pm procedure cancelled yesterday because pt had breakfast pt had temporary dialysis this AM (2) Acute bronchitis: Code(s): J20.9 - Acute bronchitis, unspecified Status: Acute Assessment and Plan: Patient with productive cough. She just completed a course of azithromycin. Chest x-ray shows hyperinflation with flattened diaphragm and no evidence of infiltrative process to suggest pneumonia. Patient is dehydrated and has COPD so pneumonia could be hidden. Sputum Cx pending. Urine antigens ordered Just finished abx so will hold off on adding Levaquin unless sputum Cx grows something Prednisone added with improvement. Continue to monitor. (3) Chronic obstructive pulmonary disease: Code(s): J44.9 - Chronic obstructive pulmonary disease, unspecified Status: Chronic Assessment and Plan: Patient with a history of COPD. Patient continues to smoke but has cut back. Wheezing has resolved. Continue Albuterol Nebs. Continue prednisone (4) Coronary artery disease: Code(s): I25.10 - Atherosclerotic heart disease of [place] coronary artery without angina pectoris Status: Acute Assessment and Plan: Patient with known coronary disease with history of stent placement. Continue aspirin and Crestor. LFTs mildly elevated and are trending down Will continue to monitor (5) Tobacco abuse: Code(s): Z72.0 - Tobacco use Status: Chronic Assessment and Plan: Patient continues to smoke a few cigarettes a day. trying to cut back (6) Hypocalcemia: Code(s): E83.51 - Hypocalcemia Status: Acute Assessment and Plan: Calcium 6.4. Corrected Ca 7.4. iPTH elevated at 474. Phos 4.3. VitD 25 normal. Calcium replaced. Calcium 6.7 today and corrected at 7.7. watch labs in hospital (7) Breast cancer metastasized to liver: Code(s): C50.919 - Malignant neoplasm of unspecified site of unspecified female breast; C78.7 - Secondary malignant neoplasm of liver and intrahepatic bile duct Status: Chronic Assessment and Plan: Stable. CA15-3 level normal earlier this month. (8) Anemia: Code(s): D64.9 - Anemia, unspecified Status: Acute Assessment and Plan: Hgb 10 on admission and has dropped to 8 range related to IV fluids. Suspect chronic from cancer and from treatment. B12 normal Iron studies noted. Follow Plan DVT prophylaxis - heparin Code status -DNR Subjective Date/time seen: 09/28/23 14:39 Interval history: 73yo female with breast cancer with mets to the liver, CAD s/p stent placement, COPD and HTN here for shortness of breath and found to have BETI. 09/26Pt could not have her pr
--- NOTE | 2023-09-28 16:33 | WPDANESEPPF ---
Anes - Initial Pre Proc Eval Procedure: Operation Date: 09/27/23 15:00 Proposed Procedures p Insertion Tunneled Dialysis Catheter - Rey Soria MD Operation Date: 09/28/23 16:00 Proposed Procedures p Insertion Tunneled Dialysis Catheter - Rey Soria MD Date/Time: 09/28/23 16:33 Surgeon: Darin Cowart MD Pre Op Diagnosis: Acute Kidney Injury Patient Data Age: 73 Gender: F Height: 1.63 m Weight: 49.2 kg Last Vital Signs Temp 36.4 C 09/28/23 15:50 Pulse 115 H 09/28/23 15:50 Resp 20 09/28/23 15:50 BP 141/45 H 09/28/23 15:50 Pulse Ox 95 09/28/23 15:50 O2 Del Method Nasal Cannula 09/28/23 15:50 O2 Flow Rate 2 09/28/23 15:50 FiO2 24 09/25/23 15:12 Allergies Allergy/AdvReac Type Severity Reaction Status Date / Time amoxicillin Allergy Severe Anaphylactic Verified 09/28/23 16:19 Shock shellfish derived Allergy Severe itch, Verified 09/28/23 16:19 rash, SOB bacitracin Allergy Intermediate Unknown Verified 09/28/23 16:19 Iodinated Contrast Media Allergy Intermediate Swelling Verified 09/28/23 16:26 of Lip/Tongue/Throat ipratropium Allergy Intermediate rash, Verified 09/28/23 16:19 itchy, SOB latex Allergy Intermediate Hives Verified 09/28/23 16:19 neomycin Allergy Intermediate rash, Verified 09/28/23 16:19 [From Maxitrol (neomycin blisters, sulf)] hives nitrofurantoin Allergy Intermediate rash, Verified 09/28/23 16:19 [From Macrobid] itchy, SOB perfume Allergy Intermediate rash, Verified 09/28/23 16:19 hives, blisters polymyxin B Allergy Intermediate rash, Verified 09/28/23 16:19 [From Maxitrol (neomycin blisters, sulf)] hives cinnamon Allergy Nausea and Verified 09/28/23 16:19 Vomiting Sulfa (Sulfonamide Allergy Vomiting Verified 09/28/23 16:19 Antibiotics) FRAGRANCE Allergy Severe Blister Uncoded 09/28/23 16:19 laundry soap Tide and Gain Allergy Intermediate blisters, Uncoded 09/28/23 16:19 hives, itchiness, redness, rash Home Medications Medication Instructions Recorded Confirmed Type fluticasone propionate 50 2 spray intranasal PRN PRN Allergy 03/21/19 09/24/23 History mcg/actuation nasal Symptoms spray,suspension (Flonase Allergy Relief) aspirin 81 mg tablet,delayed 81 mg PO DAILY 06/18/19 09/24/23 History release (Adult Low Dose Aspirin) fexofenadine 180 mg tablet 180 mg PO DAILY 08/20/21 09/24/23 History ([place] Allergy) anastrozole 1 mg tablet 1 mg PO DAILY 02/15/22 09/24/23 History palbociclib 125 mg capsule 125 mg PO DAILY 02/15/22 09/24/23 History (Ibrance) midodrine 2.5 mg tablet 2.5 mg PO DAILY 08/09/22 09/24/23 History ferrous sulfate 325 mg (65 mg 325 mg PO DAILY 08/23/22 09/24/23 History iron) tablet cyanocobalamin (vitamin B-12) 500 500 mcg PO DAILY 09/02/22 09/24/23 History mcg tablet (Vitamin B-12) omeprazole 20 mg capsule,delayed 20 mg PO DAILY #90 caps 04/19/23 09/24/23 Rx release ondansetron 8 mg disintegrating 8 mg PO Q8H PRN Nausea 05/12/23 09/24/23 History tablet bupropion HCl 300 mg 24 hr tablet, 300 mg PO QAM #90 tabs 07/19/23 09/24/23 Rx extended release albuterol sulfate 90 mcg/actuation 2 inh inhalation QID #8.5 grams 08/10/23 09/24/23 Rx aerosol inhaler clonazepam 0.5 mg tablet 0.5 mg PO .hs #90 tabs 08/14/23 09/24/23 Rx linaclotide 145 mcg capsule 145 mcg PO DAILY 1 month #30 caps 08/18/23 09/24/23 Rx (Linzess) levothyroxine 75 mcg tablet 75 mcg PO DAILY #90 tabs 09/01/23 09/24/23 Rx rosuvastatin 40 mg tablet 40 mg PO DAILY 09/24/23 09/24/23 History Laboratory Tests 09/25/23 09/28/23 10:56 05:57 WBC 7.2 K/mm3 (4.5-10.0) RBC 2.09 L M/mm3 (4.2-5.4) Hgb 8.2 L g/dL (12.0-15.0) Hct 24.0 L % (37.0-47.0) MCV 114.8 H fl (80-100) MCH 39.2 H pg (26-34) MCHC 34.2 g/dl (32-36) RDW 13.4 % (11.5-14.5) Plt Count 201 k/mm3
[2023-09-28] MEDS: SODIUM CHLORIDE 0.9% IV 500 ML 30 ML IV CONT (16:35)
[2023-09-28 16:38] LABS: Albumin 63 %
--- NOTE | 2023-09-28 16:52 | WPDHPUPDATE1 ---
History and Physical Update Update Date/Time: 09/28/23 16:52 History and Physical has been reviewed, including an updated exam of the patient. There are NO changes in the patient's condition. Risks, benefits, and alternatives have been discussed and questions answered. Patient agrees to proceed with procedure.
[2023-09-28] MEDS: BUPivacaine HCL 0.5% 10 ML AMP 30 ML INFILTRATE (17:28)
[2023-09-28] MEDS: LIDO 1%/EPINEPHRINE 1:100,000 20 ML VIAL 30 ML INFILTRATE (17:28)
[2023-09-28] MEDS: HEPARIN SODIUM 5,000 UNITS/ML VIAL 5000 UNITS XX (17:30)
[2023-09-28] MEDS: HEPARIN SODIUM 1,000 UNITS/ML VIAL 1000 UNITS XX (17:32)
--- NOTE | 2023-09-28 18:15 | W.PM.PROC2 ---
Procedure Note - Detailed Date of Procedure 09/28/23 Pre-op Diagnosis Acute Kidney Injury, end-stage renal disease. Post-op Diagnosis Same Procedure Performed Placement of tunneled Duraflow hemodialysis catheter right subclavian vein with intraoperative fluoroscopy. Removal of non tunneled left femoral vein Tcaos hemodialysis catheter. Surgeon Rey Soria MD [facility] LIAT Nguyen Anesthesia MAC Indications Patient is a 73-year-old female who has metastatic breast cancer to her liver. She being treated with chemotherapy. She was admitted to the hospital with shortness of breath and volume overload. Had acute kidney injury superimposed on chronic renal insufficiency. I placed a temporary hemodialysis catheter in the left femoral vein initially and she has had a couple treatments on hemodialysis. Nephrology has asked me to place a more durable tunneled Duraflow catheter for continued hemodialysis treatment on a longer-term basis. Findings None significant Description of Procedure After informed consent was obtained patient brought to the operating room she was placed supine position and IV sedation was administered by anesthesia. The bilateral upper anterior neck and chest was then prepped and draped usual sterile fashion. Time-out was then performed correctly identifying the patient as well as procedure to be performed. She was already on some antibiotics. I then approach placement of the tunneled hemodialysis catheter initially into the right internal jugular vein. With the patient in the head-down Trendelenburg position I then injected 1% lidocaine mixed with 0.5% Marcaine between the 2 heads of the right sternocleidomastoid muscle. Utilizing a long 18gauge spinal needle I made 2 attempts to try to cannulate the right internal jugular vein without success. At this point I then switched to trying to cannulate the right subclavian vein. The same local anesthetic mixture was injected just below the medial 3rd of the right clavicle. The long 18gauge spinal needle was then used to cannulate the right subclavian vein without any difficulty. There was prompt return of dark venous appearing blood. A guidewire was advanced through the needle and then into the right subclavian vein centrally into the superior vena cava. Intraoperative fluoroscopy was used to identify the tip of the guidewire which was in the proper position. I then proceeded to make a small stab incision below the insertion site of the guidewire with a scalpel. A Duraflow hemodialysis catheter was then tunneled between the small stab incision in the anterior chest up to the insertion site of the guidewire. I then advanced dilators over the guidewire to enlarge the be not a me. Lastly a large to playing sheath and dilator was advanced over the guidewire. The dilator and guidewire removed leaving the sheath in place. The catheter was then advanced through the sheath. The sheath was then removed leaving the catheter in place. Intraoperative fluoroscopy was then used once more to visualize tip of the tunneled catheter. The tip was a little bit deep into the right atrium and so I pulled back on the catheter until the tip of the catheter was in the distal superior vena cava. The cuff to the catheter was in the subcutaneous tunnel a couple cm below the insertion site of the catheter into the right subclavian vein. I then aspirated both ports of the catheter and aspirated blood easily and then flushed with high flows with heparinized saline solution. I then secured the catheter in place the skin with a 3-0 nylon suture and then secured the flange with 3-0 nylon sutures as well. I then ports the catheter flushed the with 2500units of IV heparin in each port. The small incision at the insertion site of the guidewire was then closed with a 4-0 Monocryl suture. The incisions were all then cleaned and then skin glue was applied to the incisions. Sterile dressings were then applied to the
[2023-09-28] MEDS: clonazePAM (*CRX) 0.5 MG TABLET PO (20:49)
[2023-09-28] MEDS: AZITHROMYCIN 500 MG/NS 250 ML 500 MG/250 ML BAG 250 MG IVPB (22:07)
[2023-09-29] VITALS (15 sets, daily range): BP systolic 143–148; BP diastolic 60–67; PULSE 96–110; RESP 14–18; TEMP 36.1–37.1; O2SAT 96–100
[2023-09-29] MEDS: ALBUTEROL SULFATE NEB 2.5 MG/3 ML INH INHALATION ×2 (02:45→20:12)
[2023-09-29 06:48] LABS: Hematocrit 23.5 % (37.0-47.0); Hemoglobin 7.6 g/dL (12.0-15.0); Mean Corpuscular HGB Conc 32.3 g/dl (32-36); Mean Corpuscular Hemoglobin 37.6 pg (26-34); Mean Corpuscular Volume 116.3 fl (80-100); Mean Platelet Volume 10.3 fl (7.4-10.4); Platelet Count Result 187 k/mm3 (150-375); Red Blood Count 2.02 M/mm3 (4.2-5.4); Red Cell Distribution Width 13.1 % (11.5-14.5); White Blood Count 8.1 K/mm3 (4.5-10.0)
[2023-09-29 06:55] LABS: Anion Gap 8 mmol/L (4-12); Blood Urea Nitrogen 55 mg/dL (7-17); Calcium 6.2 mg/dL (8.4-10.2); Carbon Dioxide 31 mmol/L (22-30); Chloride 95 mmol/L (98-107); Estimated CRCL calculation 6 ml/min; Estimated Glomerular Filt Rate 7; Glucose 97 mg/dL (65-110); Phosphorus 4.2 mg/dL (2.5-4.5); Potassium 4.3 mmol/L (3.4-5.0); Sodium 134 mmol/L (137-145)
[2023-09-29] MEDS: ROSUVASTATIN 20 MG TABLET 40 MG PO (08:15)
[2023-09-29] MEDS: buPROPion HCL XL (24 HR) 150 MG TABCR 300 MG PO (08:15)
[2023-09-29] MEDS: CYANOCOBALAMIN 500 MCG TABLET PO (08:16)
[2023-09-29] MEDS: PANTOPRAZOLE 40 MG TABLET PO (08:16)
[2023-09-29] MEDS: predniSONE 20 MG TABLET 40 MG PO (08:16)
[2023-09-29] MEDS: MIDODRINE HCL 2.5 MG TABLET PO (08:16)
[2023-09-29] MEDS: HYDROcodone/acetaminophen (*CRX) 5-325 MG TABLET 1 TAB PO ×2 (08:16→20:29)
[2023-09-29 08:25] LABS: INR 1.1
--- NOTE | 2023-09-29 09:37 | WPDANESPN ---
Anes - Prog Note Post-Op Date/Time: 09/29/23 09:37 Cardiovascular status: normal Respiratory status: normal Airway patency: baseline Mental status: baseline Post-Op hydration status: normal Vital Signs: Last Vital Signs Temp 36.4 C L 09/29/23 04:15 Pulse 100 09/29/23 04:15 Resp 16 09/29/23 04:15 BP 146/65 H 09/29/23 04:15 Pulse Ox 97 09/29/23 07:33 O2 Del Method Nasal Cannula 09/29/23 07:33 O2 Flow Rate 2 09/29/23 07:33 FiO2 28 09/29/23 07:33 Pain Score (VAS): 0 I/O: Intake & Output 09/28/23 09/29/23 09/29/23 23:59 07:59 15:59 Intake Total 0 50 Output Total 300 Balance 0 50 -300 Laboratory Tests 09/29/23 05:41 09/29/23 05:41 09/25/23 09/29/23 09/29/23 10:56 05:41 07:36 WBC 8.1 RBC 2.02 L Hgb 7.6 L Hct 23.5 L MCV 116.3 H MCH 37.6 H MCHC 32.3 RDW 13.1 Plt Count 187 MPV 10.3 PT 14.0 INR 1.1 Sodium 134 L Potassium 4.3 Chloride 95 L Carbon Dioxide 31 H Anion Gap 8 BUN 55 H Creatinine 5.80 H Estim Creat Clear Calc 6 Estimated GFR 7 L Glucose 97 Calcium 6.2 L Phosphorus 4.2 Ur ROSSI Interpret 24 hr Microbiology 09/24/23 17:37 Sputum Sputum Culture - Final Post-procedural complaints: none Patient Feedback: Patient satisfied with anesthetic care.
--- NOTE | 2023-09-29 09:37 | PC.NURSE ---
heparin held this am per ultrasound, pt getting biopsy
[2023-09-29] MEDS: HEPARIN SODIUM 5,000 UNITS/ML VIAL 5000 UNITS SUB-Q ×2 (12:00→20:30)
--- NOTE | 2023-09-29 12:01 | PCNFU ---
Nutrition Follow-Up Complete: Suboptimal po intake related to food preference as evidenced by pt report Goal: PO intake 75% of meals patient has limited progress towards goal. We will continue current goal. Pt current nutrition is Renal Dialysis. Nutrition recommendation: Nepro BID Last recorded weight is 52.3 kg, up from 49 kg on admit. Bowel Motility: Last BM reported 09/24 Labs Reviewed:Cr 5.8, BUN 55, GFR 7, Na 134 Meds Noted:Zofran, Protonix, Vit B12, Rocephin, Zithromax. Skin: WNL Additional Notes: Spoke with patient today. Diet order has advanced to a Renal Dialysis diet. Patient had been NPO this morning for US/Renal Biopsy. Dialysis Catheter placed 09/27. Recommend adding Nepro shakes BID for additional 420 kcals and 19 gm protein. Agree with diet orders at this time. Monitor intake, wt, labs. Follow up in 5 days.
--- NOTE | 2023-09-29 12:48 | PM.IMPN ---
Progress Note: A&P Assessment and Plan (1) Acute on chronic renal failure: Code(s): N17.9 - Acute kidney failure, unspecified; N18.9 - Chronic kidney disease, unspecified Status: Acute Assessment and Plan: Patient with underlying CKD with baseline creatinine recently running 1.2-1.5 range. Creatinine 6.1 on admission. BUN 74. Potassium was normal. She has metabolic acidosis with bicarb of 18 and anion gap of 18. Sodium is low 130 to suggest dehydration/prerenal. No recent contrast exposure. Consider post strep. She was given a fluid bolus and started on IV fluids. ESR 139, bicarb 14 (AG 15), Ca 6.4, TCK 108, PCT 3.5, iPTH 474. Urine eos negative. UA noted. FENa 5.8% to suggest intrinsic renal disease. Renal US showing normal kidneys Consider hepatorenal syndrome or ATN. Cr now 7.2 and she has poor UOP. Potassium 5.5. Bicarb 15 (AG 12). Lokelma given and repeat potassium normal Continue IV fluids. Nephrology consulted and appreciate their input. Add Rocephin for possible UTI (she has had prior therapy). Dialysis is being considered. Bumex given x2 doses. Try bumex again today dc sodium bicarbonate drip due to volume overload Pt sp permanent dialysis cath placement yesterday complains of some pain around the site Pt feels very nauseated ? symptoms related to acute renal failure. continue iv zofran for nausea (2) Acute bronchitis: Code(s): J20.9 - Acute bronchitis, unspecified Status: Acute Assessment and Plan: Patient with productive cough. She just completed a course of azithromycin. Chest x-ray shows hyperinflation with flattened diaphragm and no evidence of infiltrative process to suggest pneumonia. Patient is dehydrated and has COPD so pneumonia could be hidden. Prednisone added with improvement. Continue to monitor. BC Sputum culture are negative plan to reorder cxr and try IV bumex again cough likely related to volume overload (3) Chronic obstructive pulmonary disease: Code(s): J44.9 - Chronic obstructive pulmonary disease, unspecified Status: Chronic Assessment and Plan: Patient with a history of COPD. Patient continues to smoke but has cut back. Wheezing has resolved. Continue Albuterol Nebs. Continue prednisone (4) Coronary artery disease: Code(s): I25.10 - Atherosclerotic heart disease of [place] coronary artery without angina pectoris Status: Acute Assessment and Plan: Patient with known coronary disease with history of stent placement. Continue aspirin and Crestor. LFTs mildly elevated and are trending down Will continue to monitor (5) Tobacco abuse: Code(s): Z72.0 - Tobacco use Status: Chronic Assessment and Plan: Patient continues to smoke a few cigarettes a day. trying to cut back (6) Hypocalcemia: Code(s): E83.51 - Hypocalcemia Status: Acute Assessment and Plan: Calcium 6.4. Corrected Ca 7.4. iPTH elevated at 474. Phos 4.3. VitD 25 normal. Calcium replaced. Calcium 6.7 today and corrected at 7.7. watch labs in hospital (7) Breast cancer metastasized to liver: Code(s): C50.919 - Malignant neoplasm of unspecified site of unspecified female breast; C78.7 - Secondary malignant neoplasm of liver and intrahepatic bile duct Status: Chronic Assessment and Plan: Stable. CA15-3 level normal earlier this month. (8) Anemia: Code(s): D64.9 - Anemia, unspecified Status: Acute Assessment and Plan: Hgb 10 on admission and has dropped to 8 range related to IV fluids. Suspect chronic from cancer and from treatment. B12 normal Iron studies noted. Follow Subjective Date/time seen: 09/29/23 12:48 Interval history: 73yo female with breast cancer with mets to the liver, CAD s/p stent placement, COPD and HTN here for shortness of breath and found to have BETI. 09/26Pt could not have her procedure yesterday because she had
[2023-09-29] MEDS: BUMETANIDE INJ 1 MG/4 ML VIAL IV PUSH (14:34)
[2023-09-29 20:18] LABS: Pneumococcal Antigen Urine NOT DETECTED
[2023-09-29] MEDS: ONDANSETRON INJ 4 MG/2 ML VIAL IV PUSH (20:25)
[2023-09-29] MEDS: DOCUSATE SODIUM 100 MG CAPSULE PO (20:30)
[2023-09-29] MEDS: clonazePAM (*CRX) 0.5 MG TABLET PO (20:30)
[2023-09-29] MEDS: AZITHROMYCIN 500 MG/NS 250 ML 500 MG/250 ML BAG 250 MG IVPB (22:23)
[2023-09-30] VITALS (31 sets, daily range): BP systolic 103–166; BP diastolic 49–89; PULSE 68–110; RESP 16–20; TEMP 36.3–37.2; O2SAT 95–99
[2023-09-30 06:11] LABS: Hemoglobin 7.6 g/dL (12.0-15.0); Mean Corpuscular Hemoglobin 38.4 pg (26-34); Mean Corpuscular Volume 116.2 fl (80-100); Mean Platelet Volume 10.5 fl (7.4-10.4); Platelet Count Result 206 k/mm3 (150-375); Red Blood Count 1.98 M/mm3 (4.2-5.4); Red Cell Distribution Width 13.2 % (11.5-14.5); White Blood Count 9.5 K/mm3 (4.5-10.0)
[2023-09-30] MEDS: LEVOTHYROXINE SODIUM 75 MCG TABLET PO (06:23)
[2023-09-30 06:25] LABS: Anion Gap 12 mmol/L (4-12); Blood Urea Nitrogen 70 mg/dL (7-17); Calcium 6.2 mg/dL (8.4-10.2); Carbon Dioxide 28 mmol/L (22-30); Chloride 94 mmol/L (98-107); Estimated CRCL calculation 6 ml/min; Estimated Glomerular Filt Rate 6; Glucose 90 mg/dL (65-110); Potassium 4.4 mmol/L (3.4-5.0); Sodium 134 mmol/L (137-145)
[2023-09-30] MEDS: buPROPion HCL XL (24 HR) 150 MG TABCR 300 MG PO (08:05)
[2023-09-30] MEDS: MIDODRINE HCL 2.5 MG TABLET PO ×2 (08:06→16:54)
[2023-09-30] MEDS: PANTOPRAZOLE 40 MG TABLET PO (08:09)
[2023-09-30] MEDS: DOCUSATE SODIUM 100 MG CAPSULE PO ×2 (08:09→21:51)
[2023-09-30] MEDS: ROSUVASTATIN 20 MG TABLET 40 MG PO (08:09)
[2023-09-30] MEDS: CYANOCOBALAMIN 500 MCG TABLET PO (08:09)
--- NOTE | 2023-09-30 08:09 | PM.IMPN ---
Progress Note: A&P Assessment and Plan (1) Acute on chronic renal failure: Code(s): N17.9 - Acute kidney failure, unspecified; N18.9 - Chronic kidney disease, unspecified Status: Acute Assessment and Plan: Patient with underlying CKD with baseline creatinine recently running 1.2-1.5 range Creatinine 6.1 on admission. BUN 74. Potassium was normal. She has metabolic acidosis with bicarb of 18 and anion gap of 18 UA noted. FENa 5.8% to suggest intrinsic renal disease Renal US showing normal kidneys Consider hepatorenal syndrome or ATN S/P right PermCath on 09/27 S/P left renal biopsy on 09/28 Nephrology consulted, appreciate recs (2) Acute bronchitis: Code(s): J20.9 - Acute bronchitis, unspecified Status: Acute Assessment and Plan: Patient with productive cough. She just completed a course of azithromycin Chest x-ray shows hyperinflation with flattened diaphragm Prednisone added with improvement, since d/c'd BC Sputum culture are negative, blood culture, and urine culture all negative Chest XR 09/29 shows left basilar airspace disease, atelectasis versus pneumonia and small pleural effusions Patient continues on 1-2 L NC, patient is not on oxygen at home, wean as tolerated (3) Nausea and vomiting: Code(s): R11.2 - Nausea with vomiting, unspecified Status: Acute Assessment and Plan: Persistent nausea and vomiting since admission Has failed Zofran, Compazine Initially thought to be from acute renal failure but now s/p 2 HD treatments Will try Phenergan She also has a problem with chronic constipation. Restart home Linzess. KUB pending (4) Coronary artery disease: Code(s): I25.10 - Atherosclerotic heart disease of [place] coronary artery without angina pectoris Status: Acute Assessment and Plan: Patient with known coronary disease with history of stent placement. Continue aspirin and Crestor. LFTs mildly elevated and are trending down Will continue to monitor (5) Tobacco abuse: Code(s): Z72.0 - Tobacco use Status: Chronic Assessment and Plan: Patient continues to smoke a few cigarettes a day. trying to cut back (6) Hypocalcemia: Code(s): E83.51 - Hypocalcemia Status: Acute Assessment and Plan: Calcium 6.4. Corrected Ca 7.4. iPTH elevated at 474. Phos 4.3. VitD 25 normal. Calcium replaced. Calcium 6.7 today and corrected at 7.7. watch labs in hospital (7) Breast cancer metastasized to liver: Code(s): C50.919 - Malignant neoplasm of unspecified site of unspecified female breast; C78.7 - Secondary malignant neoplasm of liver and intrahepatic bile duct Status: Chronic Assessment and Plan: Stable. CA15-3 level normal earlier this month. On Arimidex and Ibrance Follows with Dr Alatorre (8) Anemia: Code(s): D64.9 - Anemia, unspecified Status: Acute Assessment and Plan: Hgb 10 on admission and has dropped to 8 range related to IV fluids. Suspect chronic from cancer and from treatment. B12 normal Iron studies noted Hemoglobin 7.6 g/dL today On Epogen 10,000 units TID with HD Plan DVT prophylaxis: Hepain GI prophylaxis: Protonix Bowel regimen: Linzess Lines: PIV, Permcath Code Status: DNR Disposition: Patient presented for shortness of breath and was found to be in acute renal failure. Nephrology was consulted. Patient had a renal biopsy, path pending. Right chest permcath was placed. She has been tolerating HD. She has a dialysis chair for MWF HD. She was also being treated for COPD/bronchitis exacerbation with new oxygen requirements. She has persistent nausea, vomiting as well. She is not tolerating a diet yet because of this. We are also trying to get her bowels functioning normally. Last BM was 1 week ago. Medication
[2023-09-30] MEDS: HEPARIN SODIUM 5,000 UNITS/ML VIAL 5000 UNITS SUB-Q ×2 (08:10→21:52)
[2023-09-30] MEDS: EPOETIN ALFA-EPBX 10,000 UNITS/ML VIAL 10000 UNITS IV PUSH (08:11)
[2023-09-30] MEDS: HEPARIN SODIUM 1,000 UNITS/ML VIAL 5000 UNITS (09:50)
[2023-09-30] MEDS: SODIUM CHLORIDE 0.9% IV 1,000 ML 999 ML (09:51)
--- NOTE | 2023-09-30 10:53 | PM.PNNEP ---
Progress Note: A&P Assessment and Plan (1) Acute kidney injury: Code(s): N17.9 - Acute kidney failure, unspecified Status: Acute Assessment and Plan: Vania has acute kidney injury. Her creatinine generally runs between 1.2 and 1.5. on admission it was up to 6.1 and then 6.7 and now 7.2 in spite of IV fluids. Urinalysis shows protein blood and few white cells. her last 3 urinalyses over the last couple of years have shown these. Her last urine culture was negative but that was 2 years ago. Urine electrolytes are non pre renal ultrasound was normal CPK is normal Sed rate is 139 and complements are normal so far. Urine output is still low. She had the biopsy yesterday. Will finish the dialysis treatment today. Her blood pressures dropping a little bit now close to 100. Will stop removing fluid. (2) HTN (hypertension) with goal to be determined: Code(s): I10 - Essential (primary) hypertension Status: Acute Assessment and Plan: Blood pressure is better with the removal of the fluid. No need for blood pressure meds right now. Is not on any currently. She is on midodrine now. I think she really needs this (3) Coronary artery disease: Code(s): I25.10 - Atherosclerotic heart disease of [place] coronary artery without angina pectoris Status: Acute Assessment and Plan: No chest pain or cardiac symptoms. (4) Metastatic cancer to liver: Code(s): C78.7 - Secondary malignant neoplasm of liver and intrahepatic bile duct Status: Acute Assessment and Plan: She is on Arimidex and Ibrance long-term, however these are on hold now. (5) Chronic kidney disease: Code(s): N18.9 - Chronic kidney disease, unspecified Status: Chronic Assessment and Plan: She has baseline creatinine of 1.3-1.5. Possibly due to hypertension. This is not been evaluated. Will get some serology an immunofixation. (6) Constipation: Code(s): K59.00 - Constipation, unspecified Status: Acute Assessment and Plan: This is a chronic problem. (7) Metabolic acidosis: Code(s): E87.20 - Acidosis, unspecified Status: Acute Assessment and Plan: The patient had a metabolic acidosis. Most likely due to the kidneys. The CO2 is up to 28 She is off her bicarb (8) Cough: Code(s): R05.9 - Cough, unspecified Status: Acute Assessment and Plan: The patient still has a cough She is on Levaquin plus ceftriaxone. Last chest x-ray did not show much 2 days. Check another 1 today (9) Nausea and vomiting: Code(s): R11.2 - Nausea with vomiting, unspecified Status: Acute Assessment and Plan: Her uremic toxins are down. She should not have any more nausea or vomiting if any of this was from uremia. She did not say that she had much nausea before she started dialysis. However the nausea is not just on dialysis treatments so I do not think it is because of the dialysis. She is already on pantoprazole. I hesitate to give more ondansetron because of the interaction with Levaquin. Consider Compazine? Subjective Date/time seen: 09/30/23 10:53 Interval history: Patient is on dialysis and tolerating it well. She has some nausea right now. She says that this has been going on ever since admission. She also has a cough but not much sputum comes up. She has a little bit of shortness of breath. Exam Narrative: WDWN in NAD skin no rash head ncat lungs clear bilaterally cor reg no rub or gallop abd BS+ nontender and soft ext no edema or cyanosis. Objective Data Vital Signs Vital Signs: Vital Signs - 24 hr 09/29/23 12:00 09/29/23 14:33 09/29/23 16:00 Temperature 97.2 F L Pulse Rate 97 97 99 Respiratory Rate 16 Blood Pressure 143/60 H Pulse Oximetry 100 Oxygen Delivery Oxygen Flow Rate Fraction of Inspired Oxygen 09/28
--- NOTE | 2023-09-30 11:04 | PM.EVENT ---
Event Note Event Note Event Note: The patient is on dialysis. Dialed in for 3L but blood pressure is decreasing so will stop ultrafiltration now. She was seen at 10:30 a.m.
--- NOTE | 2023-09-30 11:47 | WPDPN ---
Progress Note: A&P Assessment and Plan (1) Acute on chronic renal failure: Code(s): N17.9 - Acute kidney failure, unspecified; N18.9 - Chronic kidney disease, unspecified Status: Acute Assessment and Plan: Current tunneled catheter seems to be working well. Continue dialysis through this catheter. Dressing removed from the left groin region where the temporary non tunneled catheter was placed. Surgery will sign off. Disposition as per Nephrology and primary team. Subjective Date/time seen: 09/30/23 11:47 Interval history: patient on dialysis this morning presently. The catheter in the right subclavian vein is working well. Exam Skin: Other: No bleeding from the left groin puncture site for the prior non tunneled catheter. Dressing is dry. No redness or drainage from the area around the catheter the right upper anterior chest. Objective Data Vital Signs Vital Signs: Vital Signs - 24 hr 09/29/23 12:00 09/29/23 14:33 09/29/23 16:00 Temperature 36.2 C L Pulse Rate 97 97 99 Respiratory Rate 16 Blood Pressure 143/60 H Pulse Oximetry 100 Oxygen Delivery Oxygen Flow Rate Fraction of Inspired Oxygen 09/29/23 20:00 09/29/23 20:12 09/29/23 20:12 Temperature Pulse Rate 99 107 H Respiratory Rate 18 Blood Pressure Pulse Oximetry 96 Oxygen Delivery Nasal Cannula Oxygen Flow Rate 2 Fraction of Inspired Oxygen 09/29/23 20:20 09/29/23 20:05 09/30/23 05:55 Temperature 37.1 C 36.3 C L Pulse Rate 101 H 99 102 H Respiratory Rate 18 16 20 Blood Pressure 146/67 H 166/87 H Pulse Oximetry 98 97 Oxygen Delivery Oxygen Flow Rate Fraction of Inspired Oxygen 09/30/23 00:00 09/30/23 04:00 09/30/23 07:55 Temperature Pulse Rate 99 93 Respiratory Rate Blood Pressure Pulse Oximetry 97 Oxygen Delivery Nasal Cannula Oxygen Flow Rate 1 Fraction of Inspired Oxygen 09/30/23 08:25 09/30/23 08:25 09/30/23 08:00 Temperature 36.6 C Pulse Rate 95 80 Respiratory Rate 18 Blood Pressure 151/67 H Pulse Oximetry 96 Oxygen Delivery Oxygen Flow Rate 1 Fraction of Inspired Oxygen 96 09/30/23 08:00 09/30/23 08:33 09/30/23 08:45 Temperature Pulse Rate 91 93 92 Respiratory Rate Blood Pressure 163/68 H 155/89 H Pulse Oximetry 96 Oxygen Delivery Nasal Cannula Oxygen Flow Rate 1 Fraction of Inspired Oxygen 09/30/23 09:00 09/30/23 09:15 09/30/23 09:30 Temperature Pulse Rate 93 96 101 H Respiratory Rate Blood Pressure 153/70 H 134/71 130/67 Pulse Oximetry Oxygen Delivery Oxygen Flow Rate Fraction of Inspired Oxygen 09/30/23 09:45 09/30/23 10:00 09/30/23 10:15 Temperature Pulse Rate 103 H 101 H 106 H Respiratory Rate Blood Pressure 127/71 135/73 116/67 Pulse Oximetry Oxygen Delivery Oxygen Flow Rate Fraction of Inspired Oxygen 09/30/23 10:30 09/30/23 10:45 09/30/23 11:00 Temperature Pulse Rate 68 86 102 H Respiratory Rate Blood Pressure 103/66 113/77 130/61 Pulse Oximetry Oxygen Delivery Oxygen Flow Rate Fraction of Inspired Oxygen 09/30/23 11:15 09/30/23 11:30 Temperature Pulse Rate 105 H 105 H Respiratory Rate Blood Pressure 115/63 132/62 Pulse Oximetry Oxygen Delivery Oxygen Flow Rate Fraction of Inspired Oxygen Intake/Output Intake/Output: Intake & Output 09/27/23 09/28/23 09/29/23 09/30/23 23:59 23:59 23:59 23:59 Intake Total 1510 790 50 170 Output Total 2101 1860 600 250 Balance -591 -1070 -550 -80 Meds/Results Medications: Active Medications Generic Name Dose Route Start Last Admin Trade Name Freq PRN Reason Stop Dose Admin Acetaminophen 1,000 mg 09/28/23 18:13 Acetaminophen 500 Mg Tablet PO Q6H PRN Mild Pain (1-3) or Fever Hydrocodone Bitart/Acetaminophen 1 tab 09/24/23 07:57 09/29/23 20:29 Hydrocodone/Acetaminophen (*Crx) 5-325 Mg Tablet PO
--- NOTE | 2023-09-30 12:24 | ECG_ITS ---
Test Date: 2023-09-30 12:55:48 Measurements Intervals [place] Rate: 104 P: 74 [place]: 175 QRS: 56 QRSD: 85 T: 52 QT: 329 QTc: 433 Interpretive Statements SINUS TACHYCARDIA POSSIBLE RIGHT ATRIAL ENLARGEMENT LEFT ATRIAL ENLARGEMENT POSSIBLE LEFT VENTRICULAR HYPERTROPHY MINIMAL Q WAVES- INFLAT LEADS BASELINE ARTIFACT- I, AVR, AVL, V2-V3 ABNORMAL ECG Compared to ECG 09/26/2023 20:56:38 NO SIGNIFICANT CHANGE Electronically Signed On 09-30-2023 19:35:26 CDT by Vinh Zavala D.O.
[2023-09-30] MEDS: PROCHLORPERAZINE EDISYLATE 10 MG/2 ML VIAL IV PUSH (13:27)
[2023-09-30] MEDS: ALBUTEROL SULFATE NEB 2.5 MG/3 ML INH INHALATION ×2 (13:33→20:11)
[2023-09-30] MEDS: LINACLOTIDE 145 MCG CAPSULE PO (14:58)
[2023-09-30] MEDS: PROMETHAZINE HCL 25 MG/ML AMPUL 12.5 MG IV PUSH ×2 (15:16→21:52)
[2023-09-30 20:08] LABS: Immunofixation, Serum Normal pattern.
[2023-09-30] MEDS: clonazePAM (*CRX) 0.5 MG TABLET PO (21:52)
[2023-09-30] MEDS: levoFLOXacin 750 MG TABLET PO (21:52)
[2023-10-01] VITALS (17 sets, daily range): BP systolic 140–159; BP diastolic 57–83; PULSE 85–100; RESP 14–20; TEMP 36.3–36.7; O2SAT 96–100
[2023-10-01 06:19] LABS: Basophils Percent Auto 0.1 % (0.2-1.2); Eosinophils Absolute Auto 0.1 K/mm3 (0-0.3); Eosinophils Percent Auto 1.2 % (0-4.4); Hematocrit 22.4 % (37.0-47.0); Hemoglobin 7.2 g/dL (12.0-15.0); Immature Granulocyte Absolute 0.34 K/mm3 (0.00-0.031); Immature Granulocyte Percent A 4.1 % (0-0.5); Lymphocytes Absolute Auto 0.29 K/mm3 (0.9-3.2); Lymphocytes Percent Auto 3.5 % (18.3-44.2); Mean Corpuscular HGB Conc 32.1 g/dl (32-36); Mean Corpuscular Hemoglobin 37.7 pg (26-34); Mean Corpuscular Volume 117.3 fl (80-100); Mean Platelet Volume 10.6 fl (7.4-10.4); Monocytes Absolute Auto 0.8 K/mm3 (0.1-0.6); Monocytes Percent Auto 9.5 % (2.6-8.5); Neutrophils Absolute Auto 6.7 K/mm3 (1.3-6.7); Neutrophils Percent Auto 81.6 % (45.5-73.1); Nucleated Red Blood Cells Perc 0.2 % (0.0-0.2); Platelet Count Result 172 k/mm3 (150-375); Red Blood Count 1.91 M/mm3 (4.2-5.4); Red Cell Distribution Width 13.2 % (11.5-14.5); White Blood Count 8.2 K/mm3 (4.5-10.0)
[2023-10-01] MEDS: LEVOTHYROXINE SODIUM 75 MCG TABLET PO (06:28)
[2023-10-01] MEDS: LINACLOTIDE 145 MCG CAPSULE PO (06:29)
[2023-10-01 06:47] LABS: Alanine Aminotransferase 21 U/L (6-35); Albumin Level 2.8 g/dL (3.5-5.1); Alkaline Phosphatase 70 U/L (38-126); Anion Gap 6 mmol/L (4-12); Aspartate Amino Transferase 26 U/L (14-36); Bilirubin,Total 0.4 mg/dL (0.2-1.3); Blood Urea Nitrogen 33 mg/dL (7-17); Calcium 6.9 mg/dL (8.4-10.2); Carbon Dioxide 35 mmol/L (22-30); Chloride 95 mmol/L (98-107); Estimated CRCL calculation 9 ml/min; Estimated Glomerular Filt Rate 10; Glucose 97 mg/dL (65-110); Phosphorus 2.4 mg/dL (2.5-4.5); Potassium 3.6 mmol/L (3.4-5.0); Sodium 136 mmol/L (137-145)
[2023-10-01 06:52] LABS: Anisocytosis 2+; Hypochromasia 2+; Macrocytosis 2+ (NORMAL); Microcytosis 1+ (NORMAL); Platelet Estimate Adequate (Adequate); Schistocytes None Seen; Target Cells 1+
--- NOTE | 2023-10-01 07:35 | PM.IMPN ---
Progress Note: A&P Assessment and Plan (1) Acute on chronic renal failure: Code(s): N17.9 - Acute kidney failure, unspecified; N18.9 - Chronic kidney disease, unspecified Status: Acute Assessment and Plan: Patient with underlying CKD with baseline creatinine recently running 1.2-1.5 range Creatinine 6.1 on admission. BUN 74. Potassium was normal. She has metabolic acidosis with bicarb of 18 and anion gap of 18 UA noted. FENa 5.8% to suggest intrinsic renal disease Renal US showing normal kidneys Consider hepatorenal syndrome or ATN S/P right PermCath on 09/27 S/P left renal biopsy on 09/28 Nephrology consulted, appreciate recs (2) Acute bronchitis: Code(s): J20.9 - Acute bronchitis, unspecified Status: Acute Assessment and Plan: Patient with productive cough. She just completed a course of azithromycin Chest x-ray shows hyperinflation with flattened diaphragm Prednisone added with improvement, since d/c'd BC Sputum culture are negative, blood culture, and urine culture all negative Chest XR 09/29 shows left basilar airspace disease, atelectasis versus pneumonia and small pleural effusions Patient continues on 1-2 L NC, patient is not on oxygen at home, wean as tolerated She has wheezing on exam, continue nebs, add prednisone 40 mg for 5 days (3) Nausea and vomiting: Code(s): R11.2 - Nausea with vomiting, unspecified Status: Acute Assessment and Plan: Persistent nausea and vomiting since admission Has failed Zofran, Compazine Initially thought to be from acute renal failure but now s/p 2 HD treatments She also has a problem with chronic constipation. Restart home Linzess. KUB shows normal gas pattern Showing some improvement with Phenergan (4) Coronary artery disease: Code(s): I25.10 - Atherosclerotic heart disease of [place] coronary artery without angina pectoris Status: Acute Assessment and Plan: Patient with known coronary disease with history of stent placement. Continue aspirin and Crestor. LFTs mildly elevated and are trending down Will continue to monitor (5) Tobacco abuse: Code(s): Z72.0 - Tobacco use Status: Chronic Assessment and Plan: Patient continues to smoke a few cigarettes a day. trying to cut back (6) Hypocalcemia: Code(s): E83.51 - Hypocalcemia Status: Acute Assessment and Plan: Calcium 6.4. Corrected Ca 7.4. iPTH elevated at 474. Phos 4.3. VitD 25 normal. Calcium replaced. Calcium 6.7 today and corrected at 7.7. watch labs in hospital (7) Breast cancer metastasized to liver: Code(s): C50.919 - Malignant neoplasm of unspecified site of unspecified female breast; C78.7 - Secondary malignant neoplasm of liver and intrahepatic bile duct Status: Chronic Assessment and Plan: Stable. CA15-3 level normal earlier this month. On Arimidex and Ibrance Follows with Dr Alatorre (8) Anemia: Code(s): D64.9 - Anemia, unspecified Status: Acute Assessment and Plan: Hgb 10 on admission and has dropped to 8 range related to IV fluids. Suspect chronic from cancer and from treatment. B12 normal Iron studies noted Hemoglobin 7.6 g/dL today On Epogen 10,000 units TID with HD Plan DVT prophylaxis: Hepain GI prophylaxis: Protonix Bowel regimen: Linzess Lines: PIV, Permcath Code Status: DNR Disposition: Patient presented for shortness of breath and was found to be in acute renal failure. Nephrology was consulted. Patient had a renal biopsy, path pending. Right chest permcath was placed. She has been tolerating HD. She has a dialysis chair for MWF HD. She was also being treated for COPD/bronchitis exacerbation with new oxygen requirements. She has persistent nausea, vomiting as well. She is not tolerating a diet yet because of this. We are also trying to get her bowels functioning normally. Last BM was 1 week ago. ___
[2023-10-01] MEDS: ALBUTEROL SULFATE NEB 2.5 MG/3 ML INH INHALATION ×3 (08:19→20:26)
[2023-10-01] MEDS: DOCUSATE SODIUM 100 MG CAPSULE PO ×2 (08:33→21:20)
[2023-10-01] MEDS: CYANOCOBALAMIN 500 MCG TABLET PO (08:33)
[2023-10-01] MEDS: MIDODRINE HCL 2.5 MG TABLET PO ×2 (08:33→12:33)
[2023-10-01] MEDS: ROSUVASTATIN 20 MG TABLET 40 MG PO (08:33)
[2023-10-01] MEDS: PANTOPRAZOLE 40 MG TABLET PO (08:33)
[2023-10-01] MEDS: buPROPion HCL XL (24 HR) 150 MG TABCR 300 MG PO (08:33)
[2023-10-01] MEDS: HEPARIN SODIUM 5,000 UNITS/ML VIAL 5000 UNITS SUB-Q ×2 (08:34→21:21)
[2023-10-01] MEDS: EPOETIN ALFA-EPBX 3,000 UNITS/ML VIAL 6000 UNITS SUB-Q (10:09)
--- NOTE | 2023-10-01 10:38 | PM.PNNEP ---
Progress Note: A&P Assessment and Plan (1) Acute kidney injury: Code(s): N17.9 - Acute kidney failure, unspecified Status: Acute Assessment and Plan: Vania has acute kidney injury. Her creatinine generally runs between 1.2 and 1.5. on admission it was up to 6.1 and then 6.7 and now 7.2 in spite of IV fluids. Urinalysis shows protein blood and few white cells. her last 3 urinalyses over the last couple of years have shown these. Her last urine culture was negative but that was 2 years ago. Urine electrolytes are non pre renal ultrasound was normal CPK is normal Sed rate is 139 and complements are normal so far. Urine output guerrero to 600 on Monday but only 250 yesterday. She had the biopsy Monday. To get results tomorrow. She is scheduled for dialysis on Monday at [facility]. Will do dialysis tomorrow to get her on this schedule. Her chest sounds like she has got some fluid. Chest x-ray only showed atelectasis but she does have pleural effusions. Blood pressure is running in the 140s today. She is on midodrine. Hopefully this will help blood pressure so that we may remove fluid tomorrow. In the meantime will give diuretics today. Will try to remove fluid again tomorrow. Overall the patient seems too weak to go home. I talked with nursing about getting case management involved to see if there is somewhere we could send her to get stronger. (2) HTN (hypertension) with goal to be determined: Code(s): I10 - Essential (primary) hypertension Status: Acute Assessment and Plan: Blood pressure is better with the removal of the fluid. No need for blood pressure meds right now. Is not on any currently. She is on midodrine now. (3) Coronary artery disease: Code(s): I25.10 - Atherosclerotic heart disease of [place] coronary artery without angina pectoris Status: Acute Assessment and Plan: No chest pain or cardiac symptoms. (4) Metastatic cancer to liver: Code(s): C78.7 - Secondary malignant neoplasm of liver and intrahepatic bile duct Status: Acute Assessment and Plan: She is on Arimidex and Ibrance long-term, however these are on hold now. (5) Chronic kidney disease: Code(s): N18.9 - Chronic kidney disease, unspecified Status: Chronic Assessment and Plan: She has baseline creatinine of 1.3-1.5. Possibly due to hypertension. This is not been evaluated. Will get some serology an immunofixation. (6) Constipation: Code(s): K59.00 - Constipation, unspecified Status: Acute Assessment and Plan: This is a chronic problem. (7) Metabolic acidosis: Code(s): E87.20 - Acidosis, unspecified Status: Acute Assessment and Plan: The patient had a metabolic acidosis. Most likely due to the kidneys. The CO2 is up to 3 She is off her bicarb (8) Cough: Code(s): R05.9 - Cough, unspecified Status: Acute Assessment and Plan: The patient still has a cough She is on Levaquin plus ceftriaxone. Last chest x-ray showed atelectasis and effusions yesterday. (9) Nausea and vomiting: Code(s): R11.2 - Nausea with vomiting, unspecified Status: Acute Assessment and Plan: Her uremic toxins are down. She should not have any more nausea or vomiting if any of this was from uremia. No complaints of nausea today. Subjective Date/time seen: 10/01/23 10:38 Interval history: Patient is alert. She stills feels short of breath. She is also quite weak. She needed help to get to the commode. Exam Narrative: WDWN in NAD skin no rash or subQ nodules head ncat lungs clear bilaterally cor reg no rub or gallop abd BS+ nontender and soft ext no edema or cyanosis. Objective Data Vital Signs Vital Signs: Vital Signs - 24 hr 09/30/23 10:45 09/30/23 11:00 09/30/23 11:15 Temperature Pulse Rate 86 102 H
[2023-10-01] MEDS: BUMETANIDE INJ 2.5 MG/10 ML VIAL 2 MG IV PUSH ×2 (11:03→17:00)
[2023-10-01] MEDS: predniSONE 20 MG TABLET 40 MG PO (12:46)
[2023-10-01] MEDS: clonazePAM (*CRX) 0.5 MG TABLET PO (21:21)
[2023-10-02] VITALS (35 sets, daily range): BP systolic 106–174; BP diastolic 61–80; PULSE 79–101; RESP 16–22; TEMP 36–37; O2SAT 92–99
[2023-10-02] MEDS: LEVOTHYROXINE SODIUM 75 MCG TABLET PO (05:29)
[2023-10-02] MEDS: LINACLOTIDE 145 MCG CAPSULE PO (05:29)
[2023-10-02 05:51] LABS: Mean Corpuscular HGB Conc 32.7 g/dl (32-36); Mean Corpuscular Hemoglobin 38.2 pg (26-34); Mean Corpuscular Volume 116.8 fl (80-100); Mean Platelet Volume 10.8 fl (7.4-10.4); Platelet Count Result 165 k/mm3 (150-375); Red Blood Count 1.73 M/mm3 (4.2-5.4); White Blood Count 9.9 K/mm3 (4.5-10.0)
[2023-10-02 06:09] LABS: Hematocrit 20.2 % (37.0-47.0)
[2023-10-02 06:10] LABS: Alanine Aminotransferase 21 U/L (6-35); Albumin Level 2.8 g/dL (3.5-5.1); Alkaline Phosphatase 67 U/L (38-126); Anion Gap 6 mmol/L (4-12); Aspartate Amino Transferase 26 U/L (14-36); Bilirubin,Total 0.4 mg/dL (0.2-1.3); Blood Urea Nitrogen 45 mg/dL (7-17); Calcium 6.6 mg/dL (8.4-10.2); Carbon Dioxide 35 mmol/L (22-30); Chloride 94 mmol/L (98-107); Estimated CRCL calculation 7 ml/min; Estimated Glomerular Filt Rate 8; Glucose 149 mg/dL (65-110); Magnesium 1.8 mg/dL (1.6-2.3); Phosphorus 2.7 mg/dL (2.5-4.5); Potassium 3.7 mmol/L (3.4-5.0); Sodium 135 mmol/L (137-145)
[2023-10-02 06:11] LABS: Hemoglobin 6.6 g/dL (12.0-15.0)
--- NOTE | 2023-10-02 06:26 | PC.NURSE ---
Spoke with Dr. Davis at this time r/t patient Hgb 6.6 and HCT 20.2. New orders received to type and cross and transfuse 2 units PRBC during dialysis.
--- NOTE | 2023-10-02 07:15 | PM.IMPN ---
Progress Note: A&P Assessment and Plan (1) Acute on chronic renal failure: Code(s): N17.9 - Acute kidney failure, unspecified; N18.9 - Chronic kidney disease, unspecified Status: Acute Assessment and Plan: Patient with underlying CKD with baseline creatinine recently running 1.2-1.5 range Creatinine 6.1 on admission. BUN 74. Potassium was normal. She has metabolic acidosis with bicarb of 18 and anion gap of 18 UA noted. FENa 5.8% to suggest intrinsic renal disease Renal US showing normal kidneys Consider hepatorenal syndrome or ATN S/P right PermCath on 09/27 S/P left renal biopsy on 09/28 HD MWF scheduled, has a chair at [facility] in [place] Nephrology consulted, appreciate recs (2) Acute bronchitis: Code(s): J20.9 - Acute bronchitis, unspecified Status: Acute Assessment and Plan: Patient with productive cough. She just completed a course of azithromycin Chest x-ray shows hyperinflation with flattened diaphragm BC Sputum culture are negative, blood culture, and urine culture all negative Chest XR 09/29 shows left basilar airspace disease, atelectasis versus pneumonia and small pleural effusions Patient continues on 1-2 L NC, patient is not on oxygen at home, wean as tolerated She has wheezing on exam, continue nebs, add prednisone 40 mg for 5 days 10/01 last day for Levaquin PO (3) Nausea and vomiting: Code(s): R11.2 - Nausea with vomiting, unspecified Status: Acute Assessment and Plan: Persistent nausea and vomiting since admission Has failed Zofran, Compazine Initially thought to be from acute renal failure but now s/p 2 HD treatments She also has a problem with chronic constipation. Restart home Linzess. KUB shows normal gas pattern Showing some improvement with Phenergan (4) Anemia: Code(s): D64.9 - Anemia, unspecified Status: Acute Assessment and Plan: Hgb 10 on admission and has dropped to 8 range related to IV fluids. Suspect chronic from cancer and from treatment. B12 normal Iron studies noted Hemoglobin 6.6 g/dL today, 2 units pRBC ordered On Epogen 10,000 units TID with HD (5) Breast cancer metastasized to liver: Code(s): C50.919 - Malignant neoplasm of unspecified site of unspecified female breast; C78.7 - Secondary malignant neoplasm of liver and intrahepatic bile duct Status: Chronic Assessment and Plan: Stable. CA15-3 level normal earlier this month. On Arimidex and Ibrance Follows with Dr Alatorre Plan DVT prophylaxis: Hepain GI prophylaxis: Protonix Bowel regimen: Linzess Lines: PIV, Permcath Code Status: DNR Disposition: Patient presented for shortness of breath and was found to be in acute renal failure. Nephrology was consulted. Patient had a renal biopsy, path pending. Right chest PermCath was placed. She has been tolerating HD. She has a dialysis chair for MWF HD at [facility]. She was also being treated for COPD/bronchitis exacerbation with new oxygen requirements. 10/01 is her last day of PO Levaquin. She had persistent nausea, vomiting even after resolution of uremia. Phenergan is helping and she is starting to tolerate a diet. She is profoundly weak and there are concerns that she will not be able to return home independently. PT/OT has been ordered, recs appreciated. She likely will need SNF placement. Medication reconciliation obtained via the following: Nurse completed on admission The file time of this note does not necessarily represent the time the patient was seen. Advance Care Plan I have confirmed that the patient's Advanced Care Plan is present, code status is documented, or surrogate decision maker is listed in patient medical record.: Yes Medication R
[2023-10-02] MEDS: predniSONE 20 MG TABLET 40 MG PO (08:01)
[2023-10-02] MEDS: buPROPion HCL XL (24 HR) 150 MG TABCR 300 MG PO (08:01)
[2023-10-02] MEDS: DOCUSATE SODIUM 100 MG CAPSULE PO ×2 (08:01→20:41)
[2023-10-02] MEDS: PANTOPRAZOLE 40 MG TABLET PO (08:01)
[2023-10-02] MEDS: CYANOCOBALAMIN 500 MCG TABLET PO (08:01)
[2023-10-02] MEDS: MIDODRINE HCL 2.5 MG TABLET PO (08:02)
[2023-10-02] MEDS: HEPARIN SODIUM 5,000 UNITS/ML VIAL 5000 UNITS SUB-Q ×2 (08:02→20:41)
[2023-10-02] MEDS: SODIUM CHLORIDE 0.9% IV 250 ML 30 ML IV CONT (08:04)
[2023-10-02] MEDS: EPOETIN ALFA 20,000 UNITS/ML VIAL 20000 UNITS IV PUSH (12:14)
--- NOTE | 2023-10-02 13:41 | PM.PNNEP ---
Progress Note: A&P Assessment and Plan (1) Acute kidney injury: Code(s): N17.9 - Acute kidney failure, unspecified Status: Acute Assessment and Plan: Vania has acute kidney injury. Her creatinine generally runs between 1.2 and 1.5. on admission it was up to 6.1 and then 6.7 and now 7.2 in spite of IV fluids. Urinalysis shows protein blood and few white cells. her last 3 urinalyses over the last couple of years have shown these. Her last urine culture was negative but that was 2 years ago. Urine electrolytes are non pre renal ultrasound was normal CPK is normal Sed rate is 139 and complements are normal so far. urine output is a bit better. Was 1400 yesterday. She is still on the Bumex. She had the biopsy Monday. To get results soon hopefully She is scheduled for dialysis on Monday at [place]. her dialysis is underway today. trying to remove fluid On dialysis today. (2) HTN (hypertension) with goal to be determined: Code(s): I10 - Essential (primary) hypertension Status: Acute Assessment and Plan: Blood pressure is better with the removal of the fluid. No need for blood pressure meds right now. Is not on any currently. She is on midodrine now. (3) Coronary artery disease: Code(s): I25.10 - Atherosclerotic heart disease of [place] coronary artery without angina pectoris Status: Acute Assessment and Plan: No chest pain or cardiac symptoms. (4) Metastatic cancer to liver: Code(s): C78.7 - Secondary malignant neoplasm of liver and intrahepatic bile duct Status: Acute Assessment and Plan: She is on Arimidex and Ibrance long-term, however these are on hold now. (5) Chronic kidney disease: Code(s): N18.9 - Chronic kidney disease, unspecified Status: Chronic Assessment and Plan: She has baseline creatinine of 1.3-1.5. Possibly due to hypertension. This is not been evaluated. Serology and immunofixation are negative (6) Constipation: Code(s): K59.00 - Constipation, unspecified Status: Acute Assessment and Plan: This is a chronic problem. (7) Metabolic acidosis: Code(s): E87.20 - Acidosis, unspecified Status: Acute Assessment and Plan: The patient had a metabolic acidosis. Most likely due to the kidneys. The CO2 is up to 35 She is off her bicarb (8) Cough: Code(s): R05.9 - Cough, unspecified Status: Acute Assessment and Plan: The patient still has a cough She is on Levaquin plus ceftriaxone. Last chest x-ray showed atelectasis and effusions yesterday. (9) Nausea and vomiting: Code(s): R11.2 - Nausea with vomiting, unspecified Status: Acute Assessment and Plan: Her uremic toxins are down. She should not have any more nausea or vomiting if any of this was from uremia. No complaints of nausea today. she dropped her hemoglobin. She has not had a bowel movement in a few days. Will give a cathartic. (10) Anemia: Code(s): D64.9 - Anemia, unspecified Status: Acute Assessment and Plan: patient hemoglobin dropped. She is getting 2units of blood today. iron saturation was okay. check a reticulocyte count and a stool guaiac. She is on Epogen 20,000. Subjective Date/time seen: 10/02/23 13:41 Interval history: Patient is on dialysis. Tolerating it well. blood pressure is doing pretty well she is receiving 2 Units of blood this dialysis treatment. patient's nausea is not as bad as it was before. She denies any belly pain She was seen at 9:45 a.m. Exam Narrative: WDWN in NAD skin no rash or subQ nodules head ncat lungs clear bilaterally cor reg no rub or gallop abd BS+ nontender and soft ext no edema or cyanosis. Objective Data Vital Signs Vital Signs: Vital Signs - 24 hr 10/01/23 13:44 10/01/23 13
--- NOTE | 2023-10-02 13:45 | PCOTNOTE ---
Attempted to see pt. for occupational therapy evaluation. Pt. delcined at this time, stating she is too fatigued after dialysis and blood transfusions.
--- NOTE | 2023-10-02 14:45 | PM.EVENT ---
Event Note Event Note Event Note: Biopsy came back. The patient has acute tubular necrosis. There is myoglobin in the tubules however suggesting rhabdomyolysis. Our CPK was normal. I will repeat this. Probably we should hold the rosuvastatin for now. I will get a daily CK to be sure it is not going up and down. there is some arterial nephrosclerosis as well since with chronic hypertensive changes in the kidneys. There is only about 10% fibrosis though so hopefully recovery is a possibility. Long conversation with the pathologist
[2023-10-02] MEDS: BUMETANIDE INJ 2.5 MG/10 ML VIAL 2 MG IV PUSH (16:27)
[2023-10-02 16:46] LABS: Creatine Kinase 88 U/L (30-135)
[2023-10-02 18:28] LABS: IFOB Positive Control Positive; Immunochemical Fecal Occult Bl Negative (N)
[2023-10-02] MEDS: clonazePAM (*CRX) 0.5 MG TABLET PO (20:41)
[2023-10-02] MEDS: levoFLOXacin 500 MG TABLET PO (20:41)
[2023-10-03] VITALS (10 sets, daily range): BP systolic 158–178; BP diastolic 70–79; PULSE 78–100; RESP 16–20; TEMP 36.6–36.8; O2SAT 96–98
[2023-10-03] MEDS: LINACLOTIDE 145 MCG CAPSULE PO (05:40)
[2023-10-03] MEDS: LEVOTHYROXINE SODIUM 75 MCG TABLET PO (05:40)
[2023-10-03 06:27] LABS: Immature Reticulocyte Fraction 42.6 % (3.0-15.9); Reticulocyte Hemoglobin Conten 33.9 pg (28.2-36.6); Reticulocytes Absolute 0.06 10^6/uL (0.02-0.10)
[2023-10-03 06:37] LABS: Alanine Aminotransferase 37 U/L (6-35); Albumin Level 3.2 g/dL (3.5-5.1); Alkaline Phosphatase 76 U/L (38-126); Anion Gap 10 mmol/L (4-12); Aspartate Amino Transferase 44 U/L (14-36); Bilirubin,Total 0.9 mg/dL (0.2-1.3); Blood Urea Nitrogen 41 mg/dL (7-17); Calcium 6.9 mg/dL (8.4-10.2); Carbon Dioxide 34 mmol/L (22-30); Chloride 92 mmol/L (98-107); Creatine Kinase 65 U/L (30-135); Estimated CRCL calculation 8 ml/min; Estimated Glomerular Filt Rate 11; Glucose 74 mg/dL (65-110); Magnesium 1.8 mg/dL (1.6-2.3); Phosphorus 2.2 mg/dL (2.5-4.5); Potassium 3.2 mmol/L (3.4-5.0); Sodium 136 mmol/L (137-145)
[2023-10-03] MEDS: BUMETANIDE INJ 2.5 MG/10 ML VIAL 2 MG IV PUSH (07:52)
[2023-10-03] MEDS: HEPARIN SODIUM 5,000 UNITS/ML VIAL 5000 UNITS SUB-Q ×2 (07:54→20:11)
[2023-10-03] MEDS: polyethylene glycoL 3350 17 GM POWD.PACK PO (07:54)
[2023-10-03] MEDS: buPROPion HCL XL (24 HR) 150 MG TABCR 300 MG PO (08:00)
[2023-10-03] MEDS: CYANOCOBALAMIN 500 MCG TABLET PO (08:00)
[2023-10-03] MEDS: predniSONE 20 MG TABLET 40 MG PO (08:00)
[2023-10-03] MEDS: PANTOPRAZOLE 40 MG TABLET PO (08:00)
[2023-10-03] MEDS: DOCUSATE SODIUM 100 MG CAPSULE PO ×2 (08:01→20:11)
--- NOTE | 2023-10-03 08:28 | PM.IMPN ---
Progress Note: A&P Assessment and Plan (1) Acute on chronic renal failure: Code(s): N17.9 - Acute kidney failure, unspecified; N18.9 - Chronic kidney disease, unspecified Status: Acute Assessment and Plan: Patient with underlying CKD with baseline creatinine recently running 1.2-1.5 range Creatinine 6.1 on admission. BUN 74. Potassium was normal. She has metabolic acidosis with bicarb of 18 and anion gap of 18 UA noted. FENa 5.8% to suggest intrinsic renal disease Renal US showing normal kidneys Consider hepatorenal syndrome or ATN S/P right PermCath on 09/27 S/P left renal biopsy on 09/28---renal biopsy shows acute tubular necrosis with myoglobin in the tubules suggesting rhabdomyolysis . CPK was normal on admission. Holding rosuvastatin given this information. Only 10% fibrosis seen and nephrology is hopeful renal recovery is a possibility. IV Bumex 2 mg BID changed to Bumex 2 mg PO BID. I discussed the case with Dr Schmidt who made this recommendation. The patient has less swelling and she feels dry . HD MWF scheduled, has a chair at [facility] in [place] Nephrology consulted, appreciate recs (2) Acute bronchitis: Code(s): J20.9 - Acute bronchitis, unspecified Status: Acute Assessment and Plan: Patient with productive cough. She just completed a course of azithromycin Chest x-ray shows hyperinflation with flattened diaphragm BC Sputum culture are negative, blood culture, and urine culture all negative Chest XR 09/29 shows left basilar airspace disease, atelectasis versus pneumonia and small pleural effusions Patient continues on 1-2 L NC, patient is not on oxygen at home, wean as tolerated She has wheezing on exam, continue nebs, add prednisone 40 mg for 5 days 10/01 last day for Levaquin PO (3) Nausea and vomiting: Code(s): R11.2 - Nausea with vomiting, unspecified Status: Acute Assessment and Plan: Persistent nausea and vomiting since admission Has failed Zofran, Compazine Initially thought to be from acute renal failure but now s/p 2 HD treatments She also has a problem with chronic constipation. Restart home Linzess. KUB shows normal gas pattern Showing some improvement with Phenergan (4) Anemia: Code(s): D64.9 - Anemia, unspecified Status: Acute Assessment and Plan: Hgb 10 on admission and has dropped to 8 range related to IV fluids. Suspect chronic from cancer and from treatment. B12 normal Iron studies noted S/p 2 units of pRBC on 10/01. Hemoglobin is 12.5 g/dL. New leukocytosis but could be reactive to blood. Monitor. On Epogen 10,000 units TID with HD (5) Breast cancer metastasized to liver: Code(s): C50.919 - Malignant neoplasm of unspecified site of unspecified female breast; C78.7 - Secondary malignant neoplasm of liver and intrahepatic bile duct Status: Chronic Assessment and Plan: Stable. CA15-3 level normal earlier this month. On Arimidex and Ibrance Follows with Dr Alatorre Plan DVT prophylaxis: Hepain GI prophylaxis: Protonix Bowel regimen: Linzess Lines: PIV, Permcath Code Status: DNR Disposition: Patient presented for shortness of breath and was found to be in acute renal failure. Nephrology was consulted. Patient had a renal biopsy, which shows ATN and also concerns for rhabdo, only 10% loss of function so nephro is hopeful that she will have a full renal recovery. In the meantime Right chest PermCath was placed. She has been tolerating HD. She has a dialysis chair for MWF HD at [facility]. She was also being treated for COPD/bronchitis exacerbation with new oxygen requirements. We have not been able to wean her oxygen. Will need walk study at discharge. 10/01 is her last day of PO Levaquin. She had persistent nausea, vomiting even after resolution of uremia. Phenergan is helping and she is starting to tolerate a diet. She is profoundly weak and there are concerns that she w
[2023-10-03 08:49] LABS: Basophils Percent Auto 0.1 % (0.2-1.2); Eosinophils Absolute Auto 0.1 K/mm3 (0-0.3); Eosinophils Percent Auto 0.5 % (0-4.4); Hematocrit 37.5 % (37.0-47.0); Hemoglobin 12.5 g/dL (12.0-15.0); Immature Granulocyte Absolute 0.52 K/mm3 (0.00-0.031); Immature Granulocyte Percent A 3.6 % (0-0.5); Immature Platelet Fraction Pct 6.1 % (0.9-11.2); Lymphocytes Absolute Auto 0.57 K/mm3 (0.9-3.2); Lymphocytes Percent Auto 3.9 % (18.3-44.2); Mean Corpuscular HGB Conc 33.3 g/dl (32-36); Mean Corpuscular Hemoglobin 34.7 pg (26-34); Mean Corpuscular Volume 104.2 fl (80-100); Mean Platelet Volume 11.4 fl (7.4-10.4); Monocytes Absolute Auto 1.4 K/mm3 (0.1-0.6); Monocytes Percent Auto 9.3 % (2.6-8.5); Neutrophils Percent Auto 82.6 % (45.5-73.1); Nucleated Red Blood Cells Perc 0.3 % (0.0-0.2); Platelet Count Result 97 k/mm3 (150-375); Red Cell Distribution Width 20.4 % (11.5-14.5); White Blood Count 14.6 K/mm3 (4.5-10.0)
[2023-10-03 09:13] LABS: Anisocytosis 1+; Platelet Estimate Slightly Decreased (Adequate); Polychromasia 1+
[2023-10-03 09:14] LABS: Basophilic Stippling 1+; Macrocytosis 1+ (NORMAL); Schistocytes None Seen
[2023-10-03] MEDS: PROCHLORPERAZINE EDISYLATE 10 MG/2 ML VIAL IV PUSH (09:55)
--- NOTE | 2023-10-03 10:48 | P.PNNP_ITS ---
Progress Note: A&P Assessment and Plan (1) Acute kidney injury: Code(s): N17.9 - Acute kidney failure, unspecified Status: Acute Assessment and Plan: * due to biopsy proven ATN * significance of myoglobin in the tubules suggests rhabdomyolysis (bur her CPK has been normal) * urine output continues to flucutuate * BUN + creatinine continues to rise between dialysis treatments * continue Mon/Mon/Monday dialysis schedule * follow trend of repeat labs and UOP to assess for potential renal recovery (2) Stage 3b chronic kidney disease: Code(s): N18.32 - Chronic kidney disease, stage 3b Status: Chronic Assessment and Plan: * baseline creatinine runs ~ 1.3 - 1.5mg * presumably due to hypertension and age (?) * serology and immunofixation are negative (3) HTN (hypertension) with goal to be determined: Code(s): I10 - Essential (primary) hypertension Status: Chronic Assessment and Plan: * running on the higher side in the last 24 hours * no BP medications as of yet * on midodrine -- maybe able to back off on this (4) Anemia: Code(s): D64.9 - Anemia, unspecified Status: Acute Assessment and Plan: * s/p PRBC transfusion (on 10/01) * H/H doing better at this time * getting Epogen with HD * follow trend of H/H (5) Metabolic acidosis: Code(s): E87.20 - Acidosis, unspecified Status: Acute Assessment and Plan: * due to BETI/ARF * resolved/stable with dialytic intervention * off bicarbonate supplements (6) Nausea and vomiting: Code(s): R11.2 - Nausea with vomiting, unspecified Status: Acute Assessment and Plan: * assumption was this was due to uremia * getting good clearnce of uremic toxins with dialysis * still having some on/off symptoms * antiemetics as needed (7) Metastatic cancer to liver: Code(s): C78.7 - Secondary malignant neoplasm of liver and intrahepatic bile duct Status: Chronic Assessment and Plan: * on Arimidex and Ibrance long-term * on hold since admission Will continue to follow. Subjective Date/time seen: 10/03/23 10:48 Interval history: Follow-up for acute kidney injury/acute renal failure on chronic kidney disease requiring renal replacement therapy/dialysis. Chart reviewed -- assuming care from Dr. Davis; tolerated dialysis treatment yesterday without any issues or problems; major complaint at the time of my visit is nausea which seems to fluctuate in general; still feels pretty weak and fatigued as well; renal biopsy results discussed with patient again (Dr. Davis reviewed with her yesterday afternoon as well). Exam Narrative: General: elderly female in NAD Heart: normal S1 and S2; no rub Lungs: clear to auscultation Abdomen: soft, nontender, nondistended, positive bowel sounds Extremities: no cyanosis or clubbing; trace edema Skin: warm and dry Objective Data Vital Signs Vital Signs: Vital Signs Temp Pulse Resp BP Pulse Ox O2 Del Method O2 Flow Rate 10/03/23 09:54 Nasal Cannula 1 10/03/23 08:00 98 Nasal Cannula 1 10/03/23 08:00 82 10/03/23 07:44 98.0 F 83 18 164/70 H 98 10/03/23 04:00 78 10/03/23 00:00 78 10/02/23 20:00 89 10/03/23 05:01 164/70 H 10/03/23 04:00
--- NOTE | 2023-10-03 10:48 | PM.PNNEP ---
Progress Note: A&P Assessment and Plan (1) Acute kidney injury: Code(s): N17.9 - Acute kidney failure, unspecified Status: Acute Assessment and Plan: due to biopsy proven ATN significance of myoglobin in the tubules suggests rhabdomyolysis (bur her CPK has been normal) urine output continues to flucutuate BUN + creatinine continues to rise between dialysis treatments continue Mon/Mon/Monday dialysis schedule follow trend of repeat labs and UOP to assess for potential renal recovery (2) Stage 3b chronic kidney disease: Code(s): N18.32 - Chronic kidney disease, stage 3b Status: Chronic Assessment and Plan: baseline creatinine runs ~ 1.3 - 1.5mg presumably due to hypertension and age (?) serology and immunofixation are negative (3) HTN (hypertension) with goal to be determined: Code(s): I10 - Essential (primary) hypertension Status: Chronic Assessment and Plan: running on the higher side in the last 24 hours no BP medications as of yet on midodrine -- maybe able to back off on this (4) Anemia: Code(s): D64.9 - Anemia, unspecified Status: Acute Assessment and Plan: s/p PRBC transfusion (on 10/01) H/H doing better at this time getting Epogen with HD follow trend of H/H (5) Metabolic acidosis: Code(s): E87.20 - Acidosis, unspecified Status: Acute Assessment and Plan: due to BETI/ARF resolved/stable with dialytic intervention off bicarbonate supplements (6) Nausea and vomiting: Code(s): R11.2 - Nausea with vomiting, unspecified Status: Acute Assessment and Plan: assumption was this was due to uremia getting good clearnce of uremic toxins with dialysis still having some on/off symptoms antiemetics as needed (7) Metastatic cancer to liver: Code(s): C78.7 - Secondary malignant neoplasm of liver and intrahepatic bile duct Status: Chronic Assessment and Plan: on Arimidex and Ibrance long-term on hold since admission Will continue to follow. Subjective Date/time seen: 10/03/23 10:48 Interval history: Follow-up for acute kidney injury/acute renal failure on chronic kidney disease requiring renal replacement therapy/dialysis. Chart reviewed -- assuming care from Dr. Davis; tolerated dialysis treatment yesterday without any issues or problems; major complaint at the time of my visit is nausea which seems to fluctuate in general; still feels pretty weak and fatigued as well; renal biopsy results discussed with patient again (Dr. Davis reviewed with her yesterday afternoon as well). Exam Narrative: General: elderly female in NAD Heart: normal S1 and S2; no rub Lungs: clear to auscultation Abdomen: soft, nontender, nondistended, positive bowel sounds Extremities: no cyanosis or clubbing; trace edema Skin: warm and dry Objective Data Vital Signs Vital Signs: Vital Signs Temp Pulse Resp BP Pulse Ox O2 Del Method O2 Flow Rate 10/03/23 09:54 Nasal Cannula 1 10/03/23 08:00 98 Nasal Cannula 1 10/03/23 08:00 82 10/03/23 07:44 98.0 F 83 18 164/70 H 98 10/03/23 04:00 78 10/03/23 00:00 78 10/02/23 20:00 89 10/03/23 05:01 164/70 H 10/03/23 04:00 98.3 F 81 16 178/70 H 98 10/02/23 23:36 97.6 F 86 16 164/66 H 97 10/02/23 20:53 97.9 F 95 20 161/61 H 97 10/02/23 20:00 94 Nasal Cannula 1 10/02/23 12:38 97.3 F L 101 H 16 147/78 H 92 10/02/23 16:00 95 10/02/23 15:29 97.1 F L 92 22 H 160/70 H 94 10/02/23 12:49 89 151/77 H 10/02/23 12:38 92 147/78 H 10/02/23 12:30 89 151/80 H 10/02/23 13:09 97.9 F 92 17 144/78 H 98 Intake/Output Intake/Output: Intake & Output 09/30/23 10/01/23 10/02/23 10/03/23 23:59 23:59 23:59 23:59 Intake Total 031 602 9992 365 Output Total 1911 1400 2900
[2023-10-03] MEDS: BUMETANIDE 1 MG TABLET 2 MG PO (16:18)
[2023-10-03] MEDS: clonazePAM (*CRX) 0.5 MG TABLET PO (20:11)
--- NOTE | 2023-10-03 22:41 | PC.NURSE ---
This nurse is precepting Carol Davila RN License Pending. I agree with assessment and charting on this patient.
[2023-10-04] VITALS (26 sets, daily range): BP systolic 62–178; BP diastolic 44–85; PULSE 68–137; RESP 16–18; TEMP 35.7–37; O2SAT 93–100
[2023-10-04 06:10] LABS: Basophils Absolute Auto 0.1 K/mm3 (0.0-0.1); Basophils Percent Auto 0.3 % (0.2-1.2); Eosinophils Absolute Auto 0.1 K/mm3 (0-0.3); Eosinophils Percent Auto 0.7 % (0-4.4); Hematocrit 37.7 % (37.0-47.0); Hemoglobin 12.4 g/dL (12.0-15.0); Immature Granulocyte Percent A 3.4 % (0-0.5); Immature Platelet Fraction Pct 5.8 % (0.9-11.2); Lymphocytes Absolute Auto 0.64 K/mm3 (0.9-3.2); Lymphocytes Percent Auto 4.4 % (18.3-44.2); Mean Corpuscular HGB Conc 32.9 g/dl (32-36); Mean Corpuscular Hemoglobin 33.7 pg (26-34); Mean Corpuscular Volume 102.4 fl (80-100); Mean Platelet Volume 11.1 fl (7.4-10.4); Monocytes Absolute Auto 1.5 K/mm3 (0.1-0.6); Monocytes Percent Auto 10.3 % (2.6-8.5); Neutrophils Absolute Auto 11.7 K/mm3 (1.3-6.7); Neutrophils Percent Auto 80.9 % (45.5-73.1); Nucleated Red Blood Cells Perc 0.1 % (0.0-0.2); Platelet Count Result 95 k/mm3 (150-375); Red Blood Count 3.68 M/mm3 (4.2-5.4); Red Cell Distribution Width 19.8 % (11.5-14.5); White Blood Count 14.5 K/mm3 (4.5-10.0)
[2023-10-04] MEDS: LEVOTHYROXINE SODIUM 75 MCG TABLET PO (06:17)
[2023-10-04] MEDS: LINACLOTIDE 145 MCG CAPSULE PO (06:17)
[2023-10-04 06:23] LABS: Creatine Kinase 51 U/L (30-135)
[2023-10-04 06:29] LABS: Alanine Aminotransferase 32 U/L (6-35); Albumin Level 3.3 g/dL (3.5-5.1); Alkaline Phosphatase 77 U/L (38-126); Anion Gap 11 mmol/L (4-12); Aspartate Amino Transferase 28 U/L (14-36); Bilirubin,Total 0.7 mg/dL (0.2-1.3); Blood Urea Nitrogen 72 mg/dL (7-17); Calcium 7.2 mg/dL (8.4-10.2); Carbon Dioxide 33 mmol/L (22-30); Chloride 91 mmol/L (98-107); Estimated CRCL calculation 7 ml/min; Estimated Glomerular Filt Rate 8; Glucose 81 mg/dL (65-110); Magnesium 1.9 mg/dL (1.6-2.3); Phosphorus 2.9 mg/dL (2.5-4.5); Potassium 3.2 mmol/L (3.4-5.0); Sodium 135 mmol/L (137-145)
[2023-10-04 06:49] LABS: Platelet Estimate Slightly Decreased (Adequate)
[2023-10-04 06:50] LABS: Anisocytosis 1+; Microcytosis 1+ (NORMAL); Schistocytes None Seen
[2023-10-04] MEDS: SODIUM CHLORIDE 0.9% IV 1,000 ML 999 ML IV CONT (08:44)
[2023-10-04] MEDS: HEPARIN SODIUM 1,000 UNITS/ML VIAL 5000 UNITS (08:45)
--- NOTE | 2023-10-04 08:45 | P.PNNP_ITS ---
Progress Note: A&P Assessment and Plan (1) Acute kidney injury: Code(s): N17.9 - Acute kidney failure, unspecified Status: Acute Assessment and Plan: * due to biopsy proven ATN * significance of myoglobin in the tubules suggests rhabdomyolysis (bur her CPK has been normal) * urine output continues to flucutuate * BUN + creatinine continues to rise between dialysis treatments * continue Mon/Mon/Monday dialysis schedule - HD today * follow trend of repeat labs and UOP to assess for potential renal recovery (2) Stage 3b chronic kidney disease: Code(s): N18.32 - Chronic kidney disease, stage 3b Status: Chronic Assessment and Plan: * baseline creatinine runs ~ 1.3 - 1.5mg * presumably due to hypertension and age (?) * serology and immunofixation are negative (3) HTN (hypertension) with goal to be determined: Code(s): I10 - Essential (primary) hypertension Status: Chronic Assessment and Plan: * running on the higher side in the last 24 hours * follow trend of BP post-HD * on midodrine -- maybe able to back off on this (4) Anemia: Code(s): D64.9 - Anemia, unspecified Status: Acute Assessment and Plan: * s/p PRBC transfusion (on 10/01) * H/H doing better at this time * hold Epogen for now * follow trend of H/H (5) Metabolic acidosis: Code(s): E87.20 - Acidosis, unspecified Status: Acute Assessment and Plan: * due to BETI/ARF * resolved/stable with dialytic intervention * off bicarbonate supplements (6) Nausea and vomiting: Code(s): R11.2 - Nausea with vomiting, unspecified Status: Acute Assessment and Plan: * assumption was this was due to uremia * getting good clearnce of uremic toxins with dialysis * still having some on/off symptoms * antiemetics as needed (7) Metastatic cancer to liver: Code(s): C78.7 - Secondary malignant neoplasm of liver and intrahepatic bile duct Status: Chronic Assessment and Plan: * on Arimidex and Ibrance long-term * on hold since admission Will continue to follow. Subjective Date/time seen: 10/04/23 08:45 Interval history: Follow-up for acute kidney injury/acute renal failure on chronic kidney disease requiring renal replacement therapy/dialysis. Tolerating dialysis treatment at the time of my visit (seen on HD at 8:35AM); a ppears resting comfortably when seen; no apparent distress noted; no issues/events overnight or earlier this morning. Exam Narrative: General: elderly female in NAD Heart: normal S1 and S2; no rub Lungs: clear to auscultation Abdomen: soft, nontender, nondistended, positive bowel sounds Extremities: no cyanosis or clubbing; trace edema Skin: warm and intact Objective Data Vital Signs Vital Signs: Vital Signs Temp Pulse Resp BP Pulse Ox O2 Del Method O2 Flow Rate 10/04/23 08:08 97.9 F 83 16 171/77 H 100 10/04/23 08:08 1 10/04/23 07:45 97.3 F L 68 16 138/77 95 10/04/23 04:00 81 10/04/23 04:00 97.9 F 76 16 141/67 H 93 10/04/23 00:00 94 10/03/23 23:52 97.8 F 99 20 169/74 H 96 10/03/23 20:00 97 Nasal Cannula 1 10/03/23 20:00 98 10/03/23 20:00 97.8 F 92 20 159/79 H 97 10/03/23 16:00 95
--- NOTE | 2023-10-04 08:45 | PM.PNNEP ---
Progress Note: A&P Assessment and Plan (1) Acute kidney injury: Code(s): N17.9 - Acute kidney failure, unspecified Status: Acute Assessment and Plan: due to biopsy proven ATN significance of myoglobin in the tubules suggests rhabdomyolysis (bur her CPK has been normal) urine output continues to flucutuate BUN + creatinine continues to rise between dialysis treatments continue Mon/Mon/Monday dialysis schedule - HD today follow trend of repeat labs and UOP to assess for potential renal recovery (2) Stage 3b chronic kidney disease: Code(s): N18.32 - Chronic kidney disease, stage 3b Status: Chronic Assessment and Plan: baseline creatinine runs ~ 1.3 - 1.5mg presumably due to hypertension and age (?) serology and immunofixation are negative (3) HTN (hypertension) with goal to be determined: Code(s): I10 - Essential (primary) hypertension Status: Chronic Assessment and Plan: running on the higher side in the last 24 hours follow trend of BP post-HD on midodrine -- maybe able to back off on this (4) Anemia: Code(s): D64.9 - Anemia, unspecified Status: Acute Assessment and Plan: s/p PRBC transfusion (on 10/01) H/H doing better at this time hold Epogen for now follow trend of H/H (5) Metabolic acidosis: Code(s): E87.20 - Acidosis, unspecified Status: Acute Assessment and Plan: due to BETI/ARF resolved/stable with dialytic intervention off bicarbonate supplements (6) Nausea and vomiting: Code(s): R11.2 - Nausea with vomiting, unspecified Status: Acute Assessment and Plan: assumption was this was due to uremia getting good clearnce of uremic toxins with dialysis still having some on/off symptoms antiemetics as needed (7) Metastatic cancer to liver: Code(s): C78.7 - Secondary malignant neoplasm of liver and intrahepatic bile duct Status: Chronic Assessment and Plan: on Arimidex and Ibrance long-term on hold since admission Will continue to follow. Subjective Date/time seen: 10/04/23 08:45 Interval history: Follow-up for acute kidney injury/acute renal failure on chronic kidney disease requiring renal replacement therapy/dialysis. Tolerating dialysis treatment at the time of my visit (seen on HD at 8:35AM); appears resting comfortably when seen; no apparent distress noted; no issues/events overnight or earlier this morning. Exam Narrative: General: elderly female in NAD Heart: normal S1 and S2; no rub Lungs: clear to auscultation Abdomen: soft, nontender, nondistended, positive bowel sounds Extremities: no cyanosis or clubbing; trace edema Skin: warm and intact Objective Data Vital Signs Vital Signs: Vital Signs Temp Pulse Resp BP Pulse Ox O2 Del Method O2 Flow Rate 10/04/23 08:08 97.9 F 83 16 171/77 H 100 10/04/23 08:08 1 10/04/23 07:45 97.3 F L 68 16 138/77 95 10/04/23 04:00 81 10/04/23 04:00 97.9 F 76 16 141/67 H 93 10/04/23 00:00 94 10/03/23 23:52 97.8 F 99 20 169/74 H 96 10/03/23 20:00 97 Nasal Cannula 1 10/03/23 20:00 98 10/03/23 20:00 97.8 F 92 20 159/79 H 97 10/03/23 16:00 95 10/03/23 16:00 97.9 F 98 19 160/78 H 98 10/03/23 12:30 158/76 H 10/03/23 12:00 100 10/03/23 09:54 Nasal Cannula 1 Intake/Output Intake/Output: Intake & Output 10/01/23 10/02/23 10/03/23 10/04/23 23:59 23:59 23:59 23:59 Intake Total 820 1265 965 220 Output Total 1400 2900 300 Balance -580 -1635 665 220 Meds/Results Medications: Active Medications Generic Name Dose Route Start Last Admin Trade Name Freq PRN Reason Stop Dose Admin Acetaminophen 1,000 mg 09/28/23 18:13 Acetaminophen 500 Mg Tablet PO Q6H PRN Mild Pain (1-3) or Fever Hydrocodone Bitart/Acetaminophen 1 tab
--- NOTE | 2023-10-04 09:30 | PCPTNOTE ---
The patient treatment was not able to be completed due to patient out of room for dialysis. Will plan to continue treatment per plan of care.
--- NOTE | 2023-10-04 10:13 | PCNFU ---
Nutrition Follow-Up Complete: Suboptimal po intake related to food preference as evidenced by pt report Goal: PO intake 75% of meals - Progressing to goal. Intakes 75-100% meals and drinking Nepro. Continue with same goal Pt current nutrition is Low Phosphorus diet. Nepro BID for additional 420 kcal and 19 g protein. Nutrition recommendation: No new nutrition recommendations. Continue with current nutrition care plan and orders. Agree with orders Last recorded weight is 49.3 kg. Bowel Motility: Last BM 10/02/23 Labs Reviewed: Alb 3.3, Na 135, K+ 3.7, GFR 8, BUN 72, Cre 5.3, PO4 2.9 L Meds Noted: Zofran, protonix, B12 Skin: No skin issues Additional Notes: Intakes are good. Drinking some Nepro. Continue with current orders. Agree with orders Monitor intake, wt, labs. Follow up in 5 days.
--- NOTE | 2023-10-04 12:05 | PCOTNOTE ---
Patient out od the room at this time. Patient is in dialysis.
--- NOTE | 2023-10-04 13:47 | PM.IMPN ---
Progress Note: A&P Assessment and Plan (1) Acute on chronic renal failure: Code(s): N17.9 - Acute kidney failure, unspecified; N18.9 - Chronic kidney disease, unspecified Status: Acute Assessment and Plan: Patient with underlying CKD with baseline creatinine recently running 1.2-1.5 range Creatinine 6.1 on admission. BUN 74. Potassium was normal. She has metabolic acidosis with bicarb of 18 and anion gap of 18 UA noted. FENa 5.8% to suggest intrinsic renal disease S/P left renal biopsy on 09/28---renal biopsy shows acute tubular necrosis with myoglobin in the tubules suggesting rhabdomyolysis . CPK was normal on admission. Holding rosuvastatin given this information. Only 10% fibrosis seen and nephrology is hopeful renal recovery is a possibility. Renal US showing normal kidneys S/P right PermCath on 09/27 HD MWF scheduled, has a chair at [facility] in [place] Nephrology consulted, appreciate recs 10/03 Hypotensive with dialysis and lost consciousness. Dialysis nurse discussing with renal --Patient not eating or drinking well so may need a lower fluid removal goal --Hold Bumex today (IV Bumex 2mg BID IV was changed to PO by Dr Schmidt) Potassium low, had a 4K bath with dialysis today, Liberalize diet given poor PO intake Follow potassium (2) Acute bronchitis: Code(s): J20.9 - Acute bronchitis, unspecified Status: Acute Assessment and Plan: Patient with productive cough. She just completed a course of azithromycin Chest x-ray shows hyperinflation with flattened diaphragm BC Sputum culture are negative, blood culture, and urine culture all negative Chest XR 09/29 shows left basilar airspace disease, atelectasis versus pneumonia and small pleural effusions Completed Levaquin Patient continues on 1-2 L NC, patient is not on oxygen at home, wean as tolerated No wheezing, continue nebs prn --Prednisone 40 mg for 5 days (3) Nausea and vomiting: Code(s): R11.2 - Nausea with vomiting, unspecified Status: Acute Assessment and Plan: Persistent nausea and vomiting since admission Has failed Zofran, Compazine Initially thought to be from acute renal failure but now s/p 2 HD treatments She also has a problem with chronic constipation. Restarted home Linzess. KUB shows normal gas pattern Some improvement with Phenergan reported, but still nauseated, follow intake (4) Anemia: Code(s): D64.9 - Anemia, unspecified Status: Acute Assessment and Plan: Hgb 10 on admission and has dropped to 8 range related to IV fluids. Suspect chronic from cancer and from treatment. B12 normal Iron studies noted S/p 2 units of pRBC on 10/01. Hemoglobin is 12.5 g/dL. New leukocytosis but could be reactive to blood. Monitor. On Epogen 10,000 units TID with HD Follow blood count (5) Breast cancer metastasized to liver: Code(s): C50.919 - Malignant neoplasm of unspecified site of unspecified female breast; C78.7 - Secondary malignant neoplasm of liver and intrahepatic bile duct Status: Chronic Assessment and Plan: Stable. CA15-3 level normal earlier this month. On Arimidex and Ibrance Follows with Dr Alatorre (6) Hypotensive syncope: Code(s): R55 - Syncope and collapse Status: Acute Assessment and Plan: Blood pressure 62/44 and patient syncopized/became unresponsive per RN. Returned fluid with dialysis and patient was awake when I saw her --Hold bumex today --RN discussing with nephrology. Patient not eating or drinking well. May need less fluid removal Plan DVT prophylaxis: Hepain GI prophylaxis: Protonix Bowel regimen: Linzess Lines: PIV, Permcath Code Status: DNR Disposition: Patient presented for shortness of breath and was found to be in acute renal failure. Nephrology was consulted. Patient had a renal biopsy, which shows ATN and also concerns for rhabdo, only 10% loss of function so nephro is hopeful that she
--- NOTE | 2023-10-04 14:08 | PCOTNOTE ---
Per RN, Patient not to be seen this afternoon due to having low blood pressures from dialysis.
[2023-10-04] MEDS: PANTOPRAZOLE 40 MG TABLET PO (14:16)
[2023-10-04] MEDS: predniSONE 20 MG TABLET 40 MG PO (14:16)
[2023-10-04] MEDS: buPROPion HCL XL (24 HR) 150 MG TABCR 300 MG PO (14:16)
[2023-10-04] MEDS: polyethylene glycoL 3350 17 GM POWD.PACK PO (14:17)
[2023-10-04] MEDS: CYANOCOBALAMIN 500 MCG TABLET PO (14:17)
[2023-10-04] MEDS: MIDODRINE HCL 2.5 MG TABLET PO ×2 (14:17→17:20)
[2023-10-04] MEDS: DOCUSATE SODIUM 100 MG CAPSULE PO (19:54)
[2023-10-04] MEDS: clonazePAM (*CRX) 0.5 MG TABLET PO (20:58)
[2023-10-05] VITALS (8 sets, daily range): BP systolic 153–189; BP diastolic 61–86; PULSE 79–98; RESP 16–20; TEMP 36.1–36.8; O2SAT 96–99
[2023-10-05] MEDS: LINACLOTIDE 145 MCG CAPSULE PO (05:49)
[2023-10-05] MEDS: LEVOTHYROXINE SODIUM 75 MCG TABLET PO (05:49)
[2023-10-05 06:39] LABS: Basophils Percent Auto 0.2 % (0.2-1.2); Eosinophils Percent Auto 0.2 % (0-4.4); Hematocrit 42.7 % (37.0-47.0); Immature Granulocyte Absolute 0.25 K/mm3 (0.00-0.031); Immature Granulocyte Percent A 2.1 % (0-0.5); Immature Platelet Fraction Pct 5.5 % (0.9-11.2); Lymphocytes Absolute Auto 0.47 K/mm3 (0.9-3.2); Lymphocytes Percent Auto 3.9 % (18.3-44.2); Mean Corpuscular HGB Conc 32.8 g/dl (32-36); Mean Corpuscular Hemoglobin 34.7 pg (26-34); Mean Platelet Volume 11.5 fl (7.4-10.4); Monocytes Absolute Auto 1.2 K/mm3 (0.1-0.6); Monocytes Percent Auto 9.5 % (2.6-8.5); Neutrophils Absolute Auto 10.2 K/mm3 (1.3-6.7); Neutrophils Percent Auto 84.1 % (45.5-73.1); Nucleated Red Blood Cells Perc 0.2 % (0.0-0.2); Platelet Count Result 63 k/mm3 (150-375); Red Blood Count 4.03 M/mm3 (4.2-5.4); Red Cell Distribution Width 19.7 % (11.5-14.5); White Blood Count 12.2 K/mm3 (4.5-10.0)
[2023-10-05 06:51] LABS: Creatine Kinase 44 U/L (30-135)
[2023-10-05 07:22] LABS: Platelet Estimate Slightly Decreased (Adequate)
[2023-10-05 07:23] LABS: Anisocytosis 1+; Microcytosis 1+ (NORMAL); Schistocytes None Seen
[2023-10-05] MEDS: DOCUSATE SODIUM 100 MG CAPSULE PO ×2 (08:25→20:03)
[2023-10-05] MEDS: buPROPion HCL XL (24 HR) 150 MG TABCR 300 MG PO (08:25)
[2023-10-05] MEDS: CYANOCOBALAMIN 500 MCG TABLET PO (08:25)
[2023-10-05] MEDS: PANTOPRAZOLE 40 MG TABLET PO (08:26)
[2023-10-05] MEDS: predniSONE 20 MG TABLET 40 MG PO (08:26)
[2023-10-05 09:20] LABS: Albumin Level 3.6 g/dL (3.5-5.1); Anion Gap 17 mmol/L (4-12); Blood Urea Nitrogen 57 mg/dL (7-17); Carbon Dioxide 22 mmol/L (22-30); Chloride 99 mmol/L (98-107); Estimated CRCL calculation 7 ml/min; Estimated Glomerular Filt Rate 9; Glucose 97 mg/dL (65-110); Phosphorus 3.5 mg/dL (2.5-4.5); Potassium 4.4 mmol/L (3.4-5.0); Sodium 138 mmol/L (137-145)
--- NOTE | 2023-10-05 12:15 | PM.PNNEP ---
Progress Note: A&P Assessment and Plan (1) Acute kidney injury: Code(s): N17.9 - Acute kidney failure, unspecified Status: Acute Assessment and Plan: due to biopsy proven ATN significance of myoglobin in the tubules suggests rhabdomyolysis (but her CPK has been normal) urine output continues to fluctuate BUN + creatinine continues to rise between dialysis treatments continue Mon/Mon/Monday dialysis schedule - HD tomorrow follow trend of repeat labs and UOP to assess for potential renal recovery (2) Stage 3b chronic kidney disease: Code(s): N18.32 - Chronic kidney disease, stage 3b Status: Chronic Assessment and Plan: baseline creatinine runs ~ 1.3 - 1.5mg presumably due to hypertension and age (?) serology and immunofixation are negative (3) HTN (hypertension) with goal to be determined: Code(s): I10 - Essential (primary) hypertension Status: Chronic Assessment and Plan: running on the higher side in the last 24 hours follow trend of BP post-HD on midodrine -- maybe able to back off on this (4) Anemia: Code(s): D64.9 - Anemia, unspecified Status: Acute Assessment and Plan: s/p PRBC transfusion (on 10/01) H/H doing better at this time hold Epogen for now follow trend of H/H (5) Metabolic acidosis: Code(s): E87.20 - Acidosis, unspecified Status: Acute Assessment and Plan: due to BETI/ARF resolved/stable with dialytic intervention off bicarbonate supplements (6) Nausea and vomiting: Code(s): R11.2 - Nausea with vomiting, unspecified Status: Acute Assessment and Plan: assumption was this was due to uremia getting good clearnce of uremic toxins with dialysis still having some on/off symptoms antiemetics as needed (7) Metastatic cancer to liver: Code(s): C78.7 - Secondary malignant neoplasm of liver and intrahepatic bile duct Status: Chronic Assessment and Plan: on Arimidex and Ibrance long-term on hold since admission Will continue to follow. Subjective Date/time seen: 10/05/23 12:15 Interval history: Follow-up for acute kidney injury/acute renal failure on chronic kidney disease requiring renal replacement therapy/dialysis. Tolerated dialysis treatment yesterday but treatment ended ~ 15 minutes early due to hypotension -- BP responded to fluid bolus and ending treatment early; no apparent distress at this time; oral intake has been doing better with liberalization of diet; no other issues/events overnight or earlier this morning. Exam Narrative: General: elderly female in NAD Heart: normal S1 and S2; no rub Lungs: clear to auscultation Abdomen: soft, nontender, nondistended, positive bowel sounds Extremities: no cyanosis or clubbing; trace edema Skin: no rash Objective Data Vital Signs Vital Signs: Vital Signs Temp Pulse Resp BP Pulse Ox O2 Del Method O2 Flow Rate 10/05/23 12:00 98.2 F 94 18 164/79 H 96 10/05/23 08:00 97.8 F 81 18 166/71 H 98 10/05/23 08:00 82 10/05/23 07:44 99 Nasal Cannula 2 10/05/23 04:00 97.0 F L 80 20 153/61 H 99 10/05/23 04:00 79 10/05/23 00:00 84 10/04/23 20:00 95 Nasal Cannula 2 10/04/23 23:42 97.3 F L 81 18 163/66 H 98 10/04/23 20:00 95 Nasal Cannula 2 10/04/23 20:00 92 10/04/23 19:49 97.6 F 91 18 176/72 H 95 Intake/Output Intake/Output: Intake & Output 10/02/23 10/03/23 10/04/23 10/05/23 23:59 23:59 23:59 23:59 Intake Total 1265 965 460 920 Output Total 2900 300 1389 Balance -1635 665 -929 920 Meds/Results Medications: Active Medications Generic Name Dose Route Start Last Admin Trade Name Freq PRN Reason Stop Dose Admin Acetaminophen 1,000 mg 09/28/23 18:13 Acetaminophen 500 Mg Tablet PO Q6H PRN Mild Pain (1-3) or Fever Hydrocodone Bitart/[place]
--- NOTE | 2023-10-05 12:15 | P.PNNP_ITS ---
Progress Note: A&P Assessment and Plan (1) Acute kidney injury: Code(s): N17.9 - Acute kidney failure, unspecified Status: Acute Assessment and Plan: * due to biopsy proven ATN * significance of myoglobin in the tubules suggests rhabdomyolysis (but her CPK has been normal) * urine output continues to fluctuate * BUN + creatinine continues to rise between dialysis treatments * continue Mon/Mon/Monday dialysis schedule - HD tomorrow * follow trend of repeat labs and UOP to assess for potential renal recovery (2) Stage 3b chronic kidney disease: Code(s): N18.32 - Chronic kidney disease, stage 3b Status: Chronic Assessment and Plan: * baseline creatinine runs ~ 1.3 - 1.5mg * presumably due to hypertension and age (?) * serology and immunofixation are negative (3) HTN (hypertension) with goal to be determined: Code(s): I10 - Essential (primary) hypertension Status: Chronic Assessment and Plan: * running on the higher side in the last 24 hours * follow trend of BP post-HD * on midodrine -- maybe able to back off on this (4) Anemia: Code(s): D64.9 - Anemia, unspecified Status: Acute Assessment and Plan: * s/p PRBC transfusion (on 10/01) * H/H doing better at this time * hold Epogen for now * follow trend of H/H (5) Metabolic acidosis: Code(s): E87.20 - Acidosis, unspecified Status: Acute Assessment and Plan: * due to BETI/ARF * resolved/stable with dialytic intervention * off bicarbonate supplements (6) Nausea and vomiting: Code(s): R11.2 - Nausea with vomiting, unspecified Status: Acute Assessment and Plan: * assumption was this was due to uremia * getting good clearnce of uremic toxins with dialysis * still having some on/off symptoms * antiemetics as needed (7) Metastatic cancer to liver: Code(s): C78.7 - Secondary malignant neoplasm of liver and intrahepatic bile duct Status: Chronic Assessment and Plan: * on Arimidex and Ibrance long-term * on hold since admission Will continue to follow. Subjective Date/time seen: 10/05/23 12:15 Interval history: Follow-up for acute kidney injury/acute renal failure on chronic kidney disease requiring renal replacement therapy/dialysis. Tolerated dialysis treatment yesterday but treatment ended ~ 15 minutes early due to hypotension -- BP responded to fluid bolus and ending treatment early; no apparent distress at this time; oral intake has been doing better with liberalization of diet; no other issues/events overnight or earlier this morning. Exam Narrative: General: elderly female in NAD Heart: normal S1 and S2; no rub Lungs: clear to auscultation Abdomen: soft, nontender, nondistended, positive bowel sounds Extremities: no cyanosis or clubbing; trace edema Skin: no rash Objective Data Vital Signs Vital Signs: Vital Signs Temp Pulse Resp BP Pulse Ox O2 Del Method O2 Flow Rate 10/05/23 12:00 98.2 F 94 18 164/79 H 96 10/05/23 08:00 97.8 F 81 18 166/71 H 98 10/05/23 08:00 82 10/05/23 07:44 99 Nasal Cannula 2 10/05/23 04:00 97.0 F L 80 20 153/61 H 99 10/05/23 04:00 79 10/05/23 00:00 84 10/04/23 20:00 95 Nasal Cannula 2 10/04/23 23:42
[2023-10-05] MEDS: BUMETANIDE 1 MG TABLET 2 MG PO (16:51)
--- NOTE | 2023-10-05 17:05 | PM.IMPN ---
Progress Note: A&P Assessment and Plan (1) Acute on chronic renal failure: Code(s): N17.9 - Acute kidney failure, unspecified; N18.9 - Chronic kidney disease, unspecified Status: Acute Assessment and Plan: Patient with underlying CKD with baseline creatinine recently running 1.2-1.5 range Creatinine 6.1 on admission. BUN 74. Potassium was normal. She has metabolic acidosis with bicarb of 18 and anion gap of 18 UA noted. FENa 5.8% to suggest intrinsic renal disease 09/28 Renal Biopsy---renal biopsy shows acute tubular necrosis with myoglobin in the tubules suggesting rhabdomyolysis . CPK was normal on admission. Holding rosuvastatin given this information. Only 10% fibrosis seen and nephrology is hopeful renal recovery is a possibility. 09/28 Renal US showing normal kidneys 10/03 Hypotensive with dialysis and lost consciousness. Dialysis nurse planned to discuss with renal Held Bumex 10/03 (IV Bumex 2mg BID IV was changed to PO by Dr Schmidt). Potassium low, had a 4K bath with dialysis Was not eating well so liberalized diet PLAN Nephrology consulted, appreciate recs --Was not eating well, but appetite improved with liberalized diet. Continue low phos diet --Resume bumex today since blood pressure trending up --Continue regular diet if potassium stable, 4.4 today. Appetite significantly improved with regular diet DISCHARGE PLANNING S/P right PermCath on 09/27 HD MWF scheduled, has a chair at [facility] in [place] Clarify bumex dose for discharge, if continued hypotension with dialysis Regular diet at discharg if potassium stable (2) Acute bronchitis: Code(s): J20.9 - Acute bronchitis, unspecified Status: Acute Assessment and Plan: Patient reported a productive cough, improved. Completed a course of azithromycin prior to admission. BC Sputum culture are negative, blood culture, and urine culture all negative. Completed Levaquin & 5 days of Prednisone (09/30-10/04) IMAGING 09/23 Chest x-ray shows hyperinflation with flattened diaphragm 09/25 Chest x-ray Small left pleural effusion with likely adjacent left basilar atelectasis. Infection/aspiration not excluded. 09/29 Chest XR shows left basilar airspace disease, atelectasis versus pneumonia and small pleural effusions PLAN Still on 1-2L NC (not on home O2) wean as tolerated no wheezing. Nebs prn (3) Nausea and vomiting: Code(s): R11.2 - Nausea with vomiting, unspecified Status: Acute Assessment and Plan: Persistent nausea and vomiting since admission, better today. Improved with phenergan, dialysis and regular diet. Zofran and compazine weren't as helpful. She also had a problem with chronic constipation. Restarted home Linzess. 09/29 KUB shows normal gas pattern PLAN Follow intake Phenergan PRN Miralax scheduled daily (4) Anemia: Code(s): D64.9 - Anemia, unspecified Status: Acute Assessment and Plan: Hgb 10 on admission and has dropped to 8 range related to IV fluids. Suspect chronic from cancer and from treatment. B12 normal Iron studies noted. S/p 2 units of pRBC on 10/01. Hemoglobin is 12.5 g/dL. New leukocytosis possibly reactive to blood, improved WBC 14.6>12.2 On Epogen 10,000 units TID with HD Follow blood count, normal (5) Breast cancer metastasized to liver: Code(s): C50.919 - Malignant neoplasm of unspecified site of unspecified female breast; C78.7 - Secondary malignant neoplasm of liver and intrahepatic bile duct Status: Chronic Assessment and Plan: Stable. CA15-3 level normal earlier this month. On Arimidex and Ibrance Follows with Dr Alatorre (6) Hypotensive syncope: Code(s): R55 - Syncope and collapse Status: Acute Assessment and Plan: 10/03 Blood pressure with dialysis 62/44 and patient syncopized/became unresponsive per RN. Returned fluid with dialysis and patient was awake afterwards. Wasn't eating well, improved with a regu
[2023-10-05] MEDS: clonazePAM (*CRX) 0.5 MG TABLET PO (20:03)
[2023-10-06] VITALS (27 sets, daily range): BP systolic 102–168; BP diastolic 48–90; PULSE 85–123; RESP 14–20; TEMP 35.8–37; O2SAT 95–99
[2023-10-06] MEDS: hydrALAZINE HCL 20 MG/ML VIAL 10 MG IV PUSH (00:02)
[2023-10-06] MEDS: LINACLOTIDE 145 MCG CAPSULE PO (05:35)
[2023-10-06] MEDS: LEVOTHYROXINE SODIUM 75 MCG TABLET PO (05:35)
[2023-10-06 05:46] LABS: Basophils Percent Auto 0.2 % (0.2-1.2); Eosinophils Absolute Auto 0.1 K/mm3 (0-0.3); Eosinophils Percent Auto 0.6 % (0-4.4); Hematocrit 37.4 % (37.0-47.0); Hemoglobin 12.1 g/dL (12.0-15.0); Immature Granulocyte Percent A 1.5 % (0-0.5); Immature Platelet Fraction Pct 4.3 % (0.9-11.2); Lymphocytes Absolute Auto 0.58 K/mm3 (0.9-3.2); Lymphocytes Percent Auto 4.5 % (18.3-44.2); Mean Corpuscular HGB Conc 32.4 g/dl (32-36); Mean Corpuscular Hemoglobin 34.6 pg (26-34); Mean Corpuscular Volume 106.9 fl (80-100); Mean Platelet Volume 10.5 fl (7.4-10.4); Monocytes Absolute Auto 1.6 K/mm3 (0.1-0.6); Monocytes Percent Auto 11.9 % (2.6-8.5); Neutrophils Absolute Auto 10.6 K/mm3 (1.3-6.7); Neutrophils Percent Auto 81.3 % (45.5-73.1); Platelet Count Result 63 k/mm3 (150-375); Red Cell Distribution Width 19.5 % (11.5-14.5)
[2023-10-06 06:17] LABS: Albumin Level 3.2 g/dL (3.5-5.1); Anion Gap 13 mmol/L (4-12); Blood Urea Nitrogen 84 mg/dL (7-17); Calcium 7.8 mg/dL (8.4-10.2); Carbon Dioxide 26 mmol/L (22-30); Chloride 99 mmol/L (98-107); Creatine Kinase 40 U/L (30-135); Estimated CRCL calculation 6 ml/min; Estimated Glomerular Filt Rate 7; Glucose 96 mg/dL (65-110); Phosphorus 5.1 mg/dL (2.5-4.5); Potassium 3.9 mmol/L (3.4-5.0); Sodium 138 mmol/L (137-145)
[2023-10-06 06:30] LABS: Macrocytosis 1+ (NORMAL); Platelet Estimate Decreased (Adequate); Schistocytes None Seen
[2023-10-06 06:34] LABS: HIV 1/2 Ab P24 Ag Result Negative (Negative)
--- NOTE | 2023-10-06 08:12 | PM.IMPN ---
Progress Note: A&P Assessment and Plan (1) Acute on chronic renal failure: Code(s): N17.9 - Acute kidney failure, unspecified; N18.9 - Chronic kidney disease, unspecified Status: Acute Assessment and Plan: Patient with underlying CKD with baseline creatinine recently running 1.2-1.5 range Creatinine 6.1 on admission. BUN 74. Potassium was normal. She has metabolic acidosis with bicarb of 18 and anion gap of 18 UA noted. FENa 5.8% to suggest intrinsic renal disease 09/28 Renal Biopsy---renal biopsy shows acute tubular necrosis with myoglobin in the tubules suggesting rhabdomyolysis . CPK was normal on admission. Holding rosuvastatin given this information. Only 10% fibrosis seen and nephrology is hopeful renal recovery is a possibility. 09/28 Renal US showing normal kidneys 10/03 Hypotensive with dialysis and lost consciousness. Dialysis nurse planned to discuss with renal Held Bumex 10/03 (IV Bumex 2mg BID IV was changed to PO by Dr Schmidt). Potassium low, had a 4K bath with dialysis Was not eating well so liberalized diet PLAN Nephrology consulted, appreciate recs --Was not eating well, but appetite improved with liberalized diet. Continue low phos diet --Resume bumex since blood pressure trending up DISCHARGE PLANNING S/P right PermCath on 09/27 HD MWF scheduled, has a chair at [facility] in [place] Clarify bumex dose for discharge, if continued hypotension with dialysis Regular diet at discharg if potassium stable (2) Acute bronchitis: Code(s): J20.9 - Acute bronchitis, unspecified Status: Acute Assessment and Plan: Patient reported a productive cough, improved. Completed a course of azithromycin prior to admission. Sputum culture are negative, blood culture, and urine culture all negative. Completed Levaquin & 5 days of Prednisone (09/30-10/04) IMAGING 09/23 Chest x-ray shows hyperinflation with flattened diaphragm 09/25 Chest x-ray Small left pleural effusion with likely adjacent left basilar atelectasis. Infection/aspiration not excluded. 09/29 Chest XR shows left basilar airspace disease, atelectasis versus pneumonia and small pleural effusions 10/05 CHEST XR shows Probable COPD. Clear lungs. PLAN Still on 1-2L NC (not on home O2) wean as tolerated no wheezing. Nebs prn (3) Nausea and vomiting: Code(s): R11.2 - Nausea with vomiting, unspecified Status: Acute Assessment and Plan: Persistent nausea and vomiting since admission, better today. Improved with phenergan, dialysis and regular diet. Zofran and compazine weren't as helpful. She also had a problem with chronic constipation. Restarted home Linzess. 09/29 KUB shows normal gas pattern PLAN Follow intake Phenergan PRN Miralax scheduled daily (4) Anemia: Code(s): D64.9 - Anemia, unspecified Status: Acute Assessment and Plan: Hgb 10 on admission and has dropped to 8 range related to IV fluids. Suspect chronic from cancer and from treatment. B12 normal Iron studies noted. S/p 2 units of pRBC on 10/01. Hemoglobin is 12.5 g/dL. New leukocytosis possibly reactive to blood, improved WBC 14.6>12.2 On Epogen 10,000 units TID with HD Follow blood count, stable today 12.1/37.4 (5) Breast cancer metastasized to liver: Code(s): C50.919 - Malignant neoplasm of unspecified site of unspecified female breast; C78.7 - Secondary malignant neoplasm of liver and intrahepatic bile duct Status: Chronic Assessment and Plan: Stable. CA15-3 level normal earlier this month. On Arimidex and Ibrance Follows with Dr Alatorre (6) Hypotensive syncope: Code(s): R55 - Syncope and collapse Status: Acute Assessment and Plan: 10/03 Blood pressure with dialysis 62/44 and patient syncopized/became unresponsive per RN. Returned fluid with dialysis and patient was awake afterwards. Wasn't eating well, improved with a regular diet --resumed Bumex 10/04 --On midodrine 2.5
--- NOTE | 2023-10-06 08:21 | PC.NURSE ---
pt to dialysis per bed @0815 10/06/23.
[2023-10-06] MEDS: SODIUM CHLORIDE 0.9% IV 1,000 ML 999 ML IV CONT (08:27)
--- NOTE | 2023-10-06 08:35 | PCOTNOTE ---
Patient out of the room at this time. Pattient is in dialysis.
--- NOTE | 2023-10-06 08:41 | PCPTNOTE ---
The patient treatment was not able to be completed at this time due to patient out of room for dialysis. Will plan to continue treatment per plan of care.
--- NOTE | 2023-10-06 09:10 | PM.PNNEP ---
Progress Note: A&P Assessment and Plan (1) Acute kidney injury: Code(s): N17.9 - Acute kidney failure, unspecified Status: Acute Assessment and Plan: due to biopsy proven ATN significance of myoglobin in the tubules suggests rhabdomyolysis (but her CPK has been normal) urine output continues to fluctuate BUN + creatinine continues to rise between dialysis treatments continue Mon/Mon/Monday dialysis schedule - HD today follow trend of repeat labs and UOP to assess for potential renal recovery (2) Stage 3b chronic kidney disease: Code(s): N18.32 - Chronic kidney disease, stage 3b Status: Chronic Assessment and Plan: baseline creatinine runs ~ 1.3 - 1.5mg presumably due to hypertension and age (?) serology and immunofixation are negative (3) HTN (hypertension) with goal to be determined: Code(s): I10 - Essential (primary) hypertension Status: Chronic Assessment and Plan: running on the higher side in the last few days follow trend of BP post-HD start BP medications (?) midodrine on hold (4) Anemia: Code(s): D64.9 - Anemia, unspecified Status: Acute Assessment and Plan: s/p PRBC transfusion (on 10/01) H/H doing better at this time hold Epogen for now follow trend of H/H (5) Metabolic acidosis: Code(s): E87.20 - Acidosis, unspecified Status: Acute Assessment and Plan: due to BETI/ARF resolved/stable with dialytic intervention off bicarbonate supplements (6) Nausea and vomiting: Code(s): R11.2 - Nausea with vomiting, unspecified Status: Acute Assessment and Plan: assumption was this was due to uremia getting good clearnce of uremic toxins with dialysis still having some on/off symptoms antiemetics as needed (7) Metastatic cancer to liver: Code(s): C78.7 - Secondary malignant neoplasm of liver and intrahepatic bile duct Status: Chronic Assessment and Plan: on Arimidex and Ibrance long-term on hold since admission Will continue to follow. Subjective Date/time seen: 10/06/23 09:10 Interval history: Follow-up for acute kidney injury/acute renal failure on chronic kidney disease requiring renal replacement therapy/dialysis. Tolerating dialysis treatment at the time of visit (seen on HD at 9:00AM); resting comfortably during dialysis session when seen; appetite/oral intake relatively stable since diet liberalization with relatively stability in electrolytes (i.e. potassium and phosphorus); no other events overnight or earlier this AM. Exam Narrative: General: elderly female in NAD Heart: normal S1 and S2; no rub Lungs: clear to auscultation Abdomen: soft, nontender, nondistended, positive bowel sounds Extremities: no cyanosis or clubbing; trace edema Skin: no nodules Objective Data Vital Signs Vital Signs: Vital Signs Temp Pulse Resp BP Pulse Ox O2 Del Method O2 Flow Rate 10/06/23 09:00 100 156/72 H 10/06/23 08:45 94 161/81 H 10/06/23 08:35 90 167/90 H 10/06/23 08:27 97.3 F L 91 18 166/72 H 10/06/23 08:27 3 10/06/23 07:40 97.1 F L 88 20 162/67 H 96 10/06/23 04:00 86 10/06/23 03:51 96.5 F L 93 16 151/63 H 97 10/06/23 00:00 90 10/06/23 00:58 148/61 H 10/05/23 23:56 97.2 F L 86 16 189/86 H 97 10/05/23 20:00 97 Nasal Cannula 2 10/05/23 20:00 92 10/05/23 20:00 97.0 F L 97 16 185/83 H 97 10/05/23 16:00 90 10/05/23 16:00 98.0 F 88 20 158/74 H 96 10/05/23 12:00 98 10/05/23 12:00 98.2 F 94 18 164/79 H 96 Intake/Output Intake/Output: Intake & Output 10/03/23 10/04/23 10/05/23 10/06/23 23:59 23:59 23:59 23:59 Intake Total 965 460 920 720 Output Total 300 1389 Balance 665 -929 920 720 Meds/Results Medications: Active Medications Generic Name Dose Route Star
--- NOTE | 2023-10-06 09:10 | P.PNNP_ITS ---
Progress Note: A&P Assessment and Plan (1) Acute kidney injury: Code(s): N17.9 - Acute kidney failure, unspecified Status: Acute Assessment and Plan: * due to biopsy proven ATN * significance of myoglobin in the tubules suggests rhabdomyolysis (but her CPK has been normal) * urine output continues to fluctuate * BUN + creatinine continues to rise between dialysis treatments * continue Mon/Mon/Monday dialysis schedule - HD today * follow trend of repeat labs and UOP to assess for potential renal recovery (2) Stage 3b chronic kidney disease: Code(s): N18.32 - Chronic kidney disease, stage 3b Status: Chronic Assessment and Plan: * baseline creatinine runs ~ 1.3 - 1.5mg * presumably due to hypertension and age (?) * serology and immunofixation are negative (3) HTN (hypertension) with goal to be determined: Code(s): I10 - Essential (primary) hypertension Status: Chronic Assessment and Plan: * running on the higher side in the last few days * follow trend of BP post-HD * start BP medications (?) * midodrine on hold (4) Anemia: Code(s): D64.9 - Anemia, unspecified Status: Acute Assessment and Plan: * s/p PRBC transfusion (on 10/01) * H/H doing better at this time * hold Epogen for now * follow trend of H/H (5) Metabolic acidosis: Code(s): E87.20 - Acidosis, unspecified Status: Acute Assessment and Plan: * due to BETI/ARF * resolved/stable with dialytic intervention * off bicarbonate supplements (6) Nausea and vomiting: Code(s): R11.2 - Nausea with vomiting, unspecified Status: Acute Assessment and Plan: * assumption was this was due to uremia * getting good clearnce of uremic toxins with dialysis * still having some on/off symptoms * antiemetics as needed (7) Metastatic cancer to liver: Code(s): C78.7 - Secondary malignant neoplasm of liver and intrahepatic bile duct Status: Chronic Assessment and Plan: * on Arimidex and Ibrance long-term * on hold since admission Will continue to follow. Subjective Date/time seen: 10/06/23 09:10 Interval history: Follow-up for acute kidney injury/acute renal failure on chronic kidney disease requiring renal replacement therapy/dialysis. Tolerating dialysis treatment at the time of visit (seen on HD at 9:00AM); resting comfortably during dialysis session when seen; appetite/oral intake relatively stable since diet liberalization with relatively stability in electrolytes (i.e. potassium and phosphorus); no other events overnight or earlier this AM. Exam Narrative: General: elderly female in NAD Heart: normal S1 and S2; no rub Lungs: clear to auscultation Abdomen: soft, nontender, nondistended, positive bowel sounds Extremities: no cyanosis or clubbing; trace edema Skin: no nodules Objective Data Vital Signs Vital Signs: Vital Signs Temp Pulse Resp BP Pulse Ox O2 Del Method O2 Flow Rate 10/06/23 09:00 100 156/72 H 10/06/23 08:45 94 161/81 H 10/06/23 08:35 90 167/90 H 10/06/23 08:27 97.3 F L 91 18 166/72 H 10/06/23 08:27 3 10/06/23 07:40 97.1 F L 88 20 162/67 H 96 10/06/23 04:00 86 10/06/23 03:51 96.5 F L 93 16 151/63 H 97 10/06/23 0
[2023-10-06] MEDS: HEPARIN SODIUM 1,000 UNITS/ML VIAL 5000 UNITS (12:13)
[2023-10-06] MEDS: CYANOCOBALAMIN 500 MCG TABLET PO (12:40)
[2023-10-06] MEDS: buPROPion HCL XL (24 HR) 150 MG TABCR 300 MG PO (12:40)
[2023-10-06] MEDS: ASPIRIN 81 MG CHEWABLE TABLET PO (12:44)
--- NOTE | 2023-10-06 12:48 | PC.NURSE ---
pt return to floor from dialysis @1215 10/06/23.
--- NOTE | 2023-10-06 13:38 | PC.NURSE ---
made attempt to call patient's son, Dixon, to give an update; left voice message.
[2023-10-06] MEDS: MIDODRINE HCL 2.5 MG TABLET PO (17:04)
[2023-10-06] MEDS: BUMETANIDE 1 MG TABLET 2 MG PO (17:04)
[2023-10-06 17:10] LABS: Hepatitis B Surface Antigen Negative (Negative)
[2023-10-06 17:15] LABS: HAV RESULT Negative (Negative); Hepatitis B Core IgM Result Negative (Negative)
[2023-10-06 17:27] LABS: Hepatitis C Virus Antibody Negative (Negative)
[2023-10-06] MEDS: clonazePAM (*CRX) 0.5 MG TABLET PO (20:08)
[2023-10-06] MEDS: DOCUSATE SODIUM 100 MG CAPSULE PO (20:08)
[2023-10-07] VITALS (10 sets, daily range): BP systolic 117–157; BP diastolic 55–68; PULSE 86–100; RESP 16–20; TEMP 36.1–37.1; O2SAT 94–96
[2023-10-07 05:30] LABS: Basophils Percent Auto 0.1 % (0.2-1.2); Eosinophils Absolute Auto 0.2 K/mm3 (0-0.3); Eosinophils Percent Auto 1.9 % (0-4.4); Hematocrit 41.6 % (37.0-47.0); Hemoglobin 13.3 g/dL (12.0-15.0); Immature Granulocyte Absolute 0.12 K/mm3 (0.00-0.031); Immature Granulocyte Percent A 1.3 % (0-0.5); Immature Platelet Fraction Pct 5.3 % (0.9-11.2); Lymphocytes Absolute Auto 0.66 K/mm3 (0.9-3.2); Lymphocytes Percent Auto 7.4 % (18.3-44.2); Mean Corpuscular Hemoglobin 34.5 pg (26-34); Mean Corpuscular Volume 107.8 fl (80-100); Mean Platelet Volume 11.7 fl (7.4-10.4); Monocytes Absolute Auto 1.3 K/mm3 (0.1-0.6); Monocytes Percent Auto 14.9 % (2.6-8.5); Neutrophils Absolute Auto 6.6 K/mm3 (1.3-6.7); Neutrophils Percent Auto 74.4 % (45.5-73.1); Red Blood Count 3.86 M/mm3 (4.2-5.4); Red Cell Distribution Width 19.5 % (11.5-14.5); White Blood Count 8.9 K/mm3 (4.5-10.0)
[2023-10-07 05:52] LABS: Albumin Level 3.6 g/dL (3.5-5.1); Anion Gap 14 mmol/L (4-12); Blood Urea Nitrogen 65 mg/dL (7-17); Carbon Dioxide 27 mmol/L (22-30); Chloride 94 mmol/L (98-107); Estimated CRCL calculation 7 ml/min; Estimated Glomerular Filt Rate 8; Glucose 94 mg/dL (65-110); Phosphorus 5.4 mg/dL (2.5-4.5); Potassium 3.9 mmol/L (3.4-5.0); Sodium 135 mmol/L (137-145)
[2023-10-07 05:56] LABS: Platelet Count Result 60 k/mm3 (150-375)
[2023-10-07 05:57] LABS: Anisocytosis 1+; Hypochromasia 1+; Microcytosis 1+ (NORMAL); Platelet Estimate Decreased (Adequate); Schistocytes None Seen
[2023-10-07] MEDS: LEVOTHYROXINE SODIUM 75 MCG TABLET PO (06:12)
--- NOTE | 2023-10-07 06:36 | PC.NURSE ---
On 10/07/23, the INVENTORY REPRESENTATIVE, [ Mahogany], provided care and completed eelusion documentation on this patient. I have reviewed the INVENTORY REPRESENTATIVE's documentation and agree with the findings.
[2023-10-07] MEDS: ASPIRIN 81 MG CHEWABLE TABLET PO (08:56)
[2023-10-07] MEDS: buPROPion HCL XL (24 HR) 150 MG TABCR 300 MG PO (08:56)
[2023-10-07] MEDS: CYANOCOBALAMIN 500 MCG TABLET PO (08:56)
[2023-10-07] MEDS: BUMETANIDE 1 MG TABLET 2 MG PO ×2 (08:56→16:41)
--- NOTE | 2023-10-07 10:03 | PCPTNOTE ---
Patient declined PT at this time stating I feel like I and going to have diarrhea. PT will continue to follow per plan of care.
--- NOTE | 2023-10-07 10:32 | P.PNNP_ITS ---
Progress Note: A&P Assessment and Plan (1) Acute kidney injury: Code(s): N17.9 - Acute kidney failure, unspecified Status: Acute Assessment and Plan: * due to biopsy proven ATN * significance of myoglobin in the tubules suggests rhabdomyolysis (but her CPK has been normal) * urine output continues to fluctuate * BUN + creatinine continues to rise between dialysis treatments * continue Mon/Mon/Monday dialysis schedule - HD yesterday * follow trend of repeat labs and UOP to assess for potential renal recovery (2) Stage 3b chronic kidney disease: Code(s): N18.32 - Chronic kidney disease, stage 3b Status: Chronic Assessment and Plan: * baseline creatinine runs ~ 1.3 - 1.5mg * presumably due to hypertension and age (?) * serology and immunofixation are negative (3) HTN (hypertension) with goal to be determined: Code(s): I10 - Essential (primary) hypertension Status: Chronic Assessment and Plan: * better controlled at this time * on oral bumex and PRN IV hydralazine * midodrine discontinued (4) Anemia: Code(s): D64.9 - Anemia, unspecified Status: Acute Assessment and Plan: * s/p PRBC transfusion (on 10/01) * H/H doing better at this time * hold Epogen for now * follow trend of H/H (5) Metabolic acidosis: Code(s): E87.20 - Acidosis, unspecified Status: Acute Assessment and Plan: * due to BETI/ARF * resolved/stable with dialytic intervention * off bicarbonate supplements (6) Nausea and vomiting: Code(s): R11.2 - Nausea with vomiting, unspecified Status: Acute Assessment and Plan: * assumption was this was due to uremia * getting good clearance of uremic toxins with dialysis * still having some on/off symptoms * diet liberalized * antiemetics as needed (7) Metastatic cancer to liver: Code(s): C78.7 - Secondary malignant neoplasm of liver and intrahepatic bile duct Status: Chronic Assessment and Plan: * on Arimidex and Ibrance long-term * on hold since admission Will continue to follow. Subjective Date/time seen: 10/07/23 10:32 Interval history: Follow-up for acute kidney injury/acute renal failure on chronic kidney disease requiring renal replacement therapy/dialysis. Tolerated dialysis treatment yesterday without any issues or problems; reports some on/off nausea but no vomiting; still requiring supplemental oxygen at this time; no apparent distress to report; no other events overnight or earlier this morning. Exam Narrative: General: elderly female in NAD Heart: normal S1 and S2; no rub Lungs: clear to auscultation Abdomen: soft, nontender, nondistended, positive bowel sounds Extremities: no cyanosis or clubbing; trace edema Skin: warm and dry Objective Data Vital Signs Vital Signs: Vital Signs Temp Pulse Resp BP Pulse Ox O2 Del Method O2 Flow Rate 10/07/23 08:02 89 10/07/23 08:00 97.7 F 88 16 141/68 H 95 10/07/23 07:37 94 Nasal Cannula 1 10/07/23 04:00 86 10/07/23 03:53 96.9 F L 93 20 131/59 L 94 10/07/23 00:00 100 10/07/23 00:00 96.9 F L 97 18 117/55 L 95 10/06/23 20:00 85 10/06/23 20:00 96 Nasal Cannula 1 10/06/23 20:00 96.6 F L 92 14 125/58
--- NOTE | 2023-10-07 10:32 | PM.PNNEP ---
Progress Note: A&P Assessment and Plan (1) Acute kidney injury: Code(s): N17.9 - Acute kidney failure, unspecified Status: Acute Assessment and Plan: due to biopsy proven ATN significance of myoglobin in the tubules suggests rhabdomyolysis (but her CPK has been normal) urine output continues to fluctuate BUN + creatinine continues to rise between dialysis treatments continue Mon/Mon/Monday dialysis schedule - HD yesterday follow trend of repeat labs and UOP to assess for potential renal recovery (2) Stage 3b chronic kidney disease: Code(s): N18.32 - Chronic kidney disease, stage 3b Status: Chronic Assessment and Plan: baseline creatinine runs ~ 1.3 - 1.5mg presumably due to hypertension and age (?) serology and immunofixation are negative (3) HTN (hypertension) with goal to be determined: Code(s): I10 - Essential (primary) hypertension Status: Chronic Assessment and Plan: better controlled at this time on oral bumex and PRN IV hydralazine midodrine discontinued (4) Anemia: Code(s): D64.9 - Anemia, unspecified Status: Acute Assessment and Plan: s/p PRBC transfusion (on 10/01) H/H doing better at this time hold Epogen for now follow trend of H/H (5) Metabolic acidosis: Code(s): E87.20 - Acidosis, unspecified Status: Acute Assessment and Plan: due to BETI/ARF resolved/stable with dialytic intervention off bicarbonate supplements (6) Nausea and vomiting: Code(s): R11.2 - Nausea with vomiting, unspecified Status: Acute Assessment and Plan: assumption was this was due to uremia getting good clearance of uremic toxins with dialysis still having some on/off symptoms diet liberalized antiemetics as needed (7) Metastatic cancer to liver: Code(s): C78.7 - Secondary malignant neoplasm of liver and intrahepatic bile duct Status: Chronic Assessment and Plan: on Arimidex and Ibrance long-term on hold since admission Will continue to follow. Subjective Date/time seen: 10/07/23 10:32 Interval history: Follow-up for acute kidney injury/acute renal failure on chronic kidney disease requiring renal replacement therapy/dialysis. Tolerated dialysis treatment yesterday without any issues or problems; reports some on/off nausea but no vomiting; still requiring supplemental oxygen at this time; no apparent distress to report; no other events overnight or earlier this morning. Exam Narrative: General: elderly female in NAD Heart: normal S1 and S2; no rub Lungs: clear to auscultation Abdomen: soft, nontender, nondistended, positive bowel sounds Extremities: no cyanosis or clubbing; trace edema Skin: warm and dry Objective Data Vital Signs Vital Signs: Vital Signs Temp Pulse Resp BP Pulse Ox O2 Del Method O2 Flow Rate 10/07/23 08:02 89 10/07/23 08:00 97.7 F 88 16 141/68 H 95 10/07/23 07:37 94 Nasal Cannula 1 10/07/23 04:00 86 10/07/23 03:53 96.9 F L 93 20 131/59 L 94 10/07/23 00:00 100 10/07/23 00:00 96.9 F L 97 18 117/55 L 95 10/06/23 20:00 85 10/06/23 20:00 96 Nasal Cannula 1 10/06/23 20:00 96.6 F L 92 14 125/58 L 96 10/06/23 16:00 97.3 F L 93 20 126/48 L 99 10/06/23 16:00 98 Intake/Output Intake/Output: Intake & Output 10/04/23 10/05/23 10/06/23 10/07/23 23:59 23:59 23:59 23:59 Intake Total 069 809 4641 110 Output Total 1389 1002 Balance -929 920 438 110 Meds/Results Medications: Active Medications Generic Name Dose Route Start Last Admin Trade Name Erika PRN Reason Stop Dose Admin Acetaminophen 1,000 mg 09/28/23 18:13 Acetaminophen 500 Mg Tablet PO Q6H PRN Mild Pain (1-3) or Fever Hydrocodone Bitart/Acetaminophen 1 tab 09/28/23 18:13 Hydrocodone/Acetaminophen (*Crx) 5-325 Mg Tablet P
--- NOTE | 2023-10-07 14:15 | PM.IMPN ---
Progress Note: A&P Assessment and Plan (1) Acute on chronic renal failure: Code(s): N17.9 - Acute kidney failure, unspecified; N18.9 - Chronic kidney disease, unspecified Status: Acute Assessment and Plan: ATN confirmed with biopsy Patient with underlying CKD with baseline creatinine recently running 1.2-1.5 range Creatinine 6.1 on admission. BUN 74. Potassium was normal. She has metabolic acidosis with bicarb of 18 and anion gap of 18 UA noted. FENa 5.8% to suggest intrinsic renal disease 09/28 Renal Biopsy---renal biopsy shows acute tubular necrosis with myoglobin in the tubules suggesting rhabdomyolysis . CPK was normal on admission. Holding rosuvastatin given this information. Only 10% fibrosis seen and nephrology is hopeful renal recovery is a possibility. 09/28 Renal US showing normal kidneys 10/03 Hypotensive with dialysis and lost consciousness. Dialysis nurse planned to discuss with renal Held Bumex 10/03 (IV Bumex 2mg BID IV was changed to PO by Dr Schmidt). Potassium low, had a 4K bath with dialysis Was not eating well so liberalized diet PLAN Nephrology consulted, appreciate recs --Was not eating well, but appetite improved with liberalized diet. Continue low phos diet --Resume bumex since blood pressure trending up DISCHARGE PLANNING S/P right PermCath on 09/27 HD MWF scheduled, has a chair at [facility] in [place] Clarify bumex dose for discharge, if continued hypotension with dialysis Regular diet at discharge if potassium stable (2) Acute bronchitis: Code(s): J20.9 - Acute bronchitis, unspecified Status: Acute Assessment and Plan: Patient reported a productive cough, improved. Completed a course of azithromycin prior to admission. Sputum culture are negative, blood culture, and urine culture all negative. Completed Levaquin & 5 days of Prednisone (09/30-10/04) IMAGING 09/23 Chest x-ray shows hyperinflation with flattened diaphragm 09/25 Chest x-ray Small left pleural effusion with likely adjacent left basilar atelectasis. Infection/aspiration not excluded. 09/29 Chest XR shows left basilar airspace disease, atelectasis versus pneumonia and small pleural effusions 10/05 CHEST XR shows Probable COPD. Clear lungs. PLAN Still on 1-2L NC (not on home O2) wean as tolerated no wheezing. Nebs prn (3) Nausea and vomiting: Code(s): R11.2 - Nausea with vomiting, unspecified Status: Acute Assessment and Plan: Persistent nausea and vomiting since admission, better today. Improved with phenergan, dialysis and regular diet. Zofran and compazine weren't as helpful. She also had a problem with chronic constipation. Restarted home Linzess. 09/29 KUB shows normal gas pattern PLAN Follow intake Phenergan PRN Miralax scheduled daily (4) Anemia: Code(s): D64.9 - Anemia, unspecified Status: Acute Assessment and Plan: RESOLVED Hgb 10 on admission and has dropped to 8 range related to IV fluids. Suspect chronic from cancer and from treatment. B12 normal Iron studies noted. S/p 2 units of pRBC on 10/01. Hemoglobin is 12.5 g/dL. New leukocytosis possibly reactive to blood, improved WBC 14.6>12.2 On Epogen 10,000 units TID with HD Follow blood count, stable today 12.1/37.4 (5) Breast cancer metastasized to liver: Code(s): C50.919 - Malignant neoplasm of unspecified site of unspecified female breast; C78.7 - Secondary malignant neoplasm of liver and intrahepatic bile duct Status: Chronic Assessment and Plan: Stable. CA15-3 level normal earlier this month. On Arimidex and Ibrance Follows with Dr Alatorre (6) Hypotensive syncope: Code(s): R55 - Syncope and collapse Status: Acute Assessment and Plan: 10/03 Blood pressure with dialysis 62/44 and patient syncopized/became unresponsive per RN. Returned fluid with dialysis and patient was awake afterwards. Wasn't eating well, improved with a regular
[2023-10-07] MEDS: clonazePAM (*CRX) 0.5 MG TABLET PO (21:32)
[2023-10-07] MEDS: DOCUSATE SODIUM 100 MG CAPSULE PO (21:32)
[2023-10-08] VITALS (7 sets, daily range): BP systolic 134–153; BP diastolic 55–73; PULSE 90–101; RESP 16–18; TEMP 36.4–36.9; O2SAT 92–97
[2023-10-08] MEDS: LINACLOTIDE 145 MCG CAPSULE PO (05:16)
[2023-10-08] MEDS: LEVOTHYROXINE SODIUM 75 MCG TABLET PO (05:16)
[2023-10-08 06:09] LABS: Basophils Percent Auto 0.2 % (0.2-1.2); Eosinophils Absolute Auto 0.1 K/mm3 (0-0.3); Eosinophils Percent Auto 1.6 % (0-4.4); Hemoglobin 13.2 g/dL (12.0-15.0); Immature Granulocyte Absolute 0.08 K/mm3 (0.00-0.031); Immature Granulocyte Percent A 0.9 % (0-0.5); Immature Platelet Fraction Pct 4.2 % (0.9-11.2); Lymphocytes Absolute Auto 0.45 K/mm3 (0.9-3.2); Mean Corpuscular HGB Conc 32.2 g/dl (32-36); Mean Corpuscular Hemoglobin 35.2 pg (26-34); Mean Corpuscular Volume 109.3 fl (80-100); Mean Platelet Volume 11.5 fl (7.4-10.4); Monocytes Absolute Auto 1.4 K/mm3 (0.1-0.6); Neutrophils Percent Auto 77.3 % (45.5-73.1); Platelet Count Result 66 k/mm3 (150-375); Red Blood Count 3.75 M/mm3 (4.2-5.4)
[2023-10-08 06:32] LABS: Albumin Level 3.5 g/dL (3.5-5.1); Anion Gap 15 mmol/L (4-12); Blood Urea Nitrogen 88 mg/dL (7-17); Calcium 7.7 mg/dL (8.4-10.2); Carbon Dioxide 27 mmol/L (22-30); Chloride 92 mmol/L (98-107); Estimated CRCL calculation 6 ml/min; Estimated Glomerular Filt Rate 6; Glucose 101 mg/dL (65-110); Phosphorus 6.5 mg/dL (2.5-4.5); Potassium 3.9 mmol/L (3.4-5.0); Sodium 134 mmol/L (137-145)
[2023-10-08 07:40] LABS: Platelet Estimate Decreased (Adequate)
[2023-10-08 07:41] LABS: Macrocytosis 1+ (NORMAL); Schistocytes None Seen
[2023-10-08] MEDS: CYANOCOBALAMIN 500 MCG TABLET PO (09:52)
[2023-10-08] MEDS: BUMETANIDE 1 MG TABLET 2 MG PO ×2 (09:52→17:14)
[2023-10-08] MEDS: buPROPion HCL XL (24 HR) 150 MG TABCR 300 MG PO (09:52)
[2023-10-08] MEDS: DOCUSATE SODIUM 100 MG CAPSULE PO ×2 (09:52→21:11)
[2023-10-08] MEDS: ASPIRIN 81 MG CHEWABLE TABLET PO (09:52)
--- NOTE | 2023-10-08 10:48 | P.PNIM_ITS ---
Progress Note: A&P Assessment and Plan (1) Acute on chronic renal failure: Code(s): N17.9 - Acute kidney failure, unspecified; N18.9 - Chronic kidney disease, unspecified Status: Acute Assessment and Plan: ATN confirmed with biopsy Patient with underlying CKD with baseline creatinine recently running 1.2-1.5 range Creatinine 6.1 on admission. BUN 74. Potassium was normal. She has metabolic acidosis with bicarb of 18 and anion gap of 18 UA noted. FENa 5.8% to suggest intrinsic renal disease 09/28 Renal Biopsy---renal biopsy shows acute tubular necrosis with myoglobin in the tubules suggesting rhabdomyolysis . CPK was normal on admission. Holding rosuvastatin given this information. Only 10% fibrosis seen and nephrology is hopeful renal recovery is a possibility. 09/28 Renal US showing normal kidneys 10/03 Hypotensive with dialysis and lost consciousness. Dialysis nurse planned to discuss with renal Held Bumex 10/03 (IV Bumex 2mg BID IV was changed to PO by Dr Schmidt). Potassium low, had a 4K bath with dialysis Was not eating well so liberalized diet PLAN Nephrology consulted, appreciate recs --Was not eating well, but appetite improved with liberalized diet. Continue low phos diet --Resume bumex since blood pressure trending up DISCHARGE PLANNING S/P right PermCath on 09/27 HD MWF scheduled, has a chair at [facility] in [place] Clarify bumex dose for discharge, if continued hypotension with dialysis Regular diet at discharge if potassium stable (2) Acute bronchitis: Code(s): J20.9 - Acute bronchitis, unspecified Status: Acute Assessment and Plan: Patient reported a productive cough, improved. Completed a course of azithromycin prior to admission. Sputum culture are negative, blood culture, and urine culture all negative. Completed Levaquin & 5 days of Prednisone (09/30- 10/04) IMAGING 09/23 Chest x-ray shows hyperinflation with flattened diaphragm 09/25 Chest x-ray Small left pleural effusion with likely adjacent left basilar atelectasis. Infection/aspiration not excluded. 09/29 Chest XR shows left basilar airspace disease, atelectasis versus pneumonia and small pleural effusions 10/05 CHEST XR shows Probable COPD. Clear lungs. PLAN Still on 1-2L NC (not on home O2) wean as tolerated no wheezing. Nebs prn (3) Nausea and vomiting: Code(s): R11.2 - Nausea with vomiting, unspecified Status: Acute Assessment and Plan: Persistent nausea and vomiting since admission, better today. Improved with phenergan, dialysis and regular diet. Zofran and compazine weren't as helpful. She also had a problem with chronic constipation. Restarted home Linzess. 09/29 KUB shows normal gas pattern PLAN Follow intake Phenergan PRN Miralax scheduled daily (4) Anemia: Code(s): D64.9 - Anemia, unspecified Status: Acute Assessment and Plan: RESOLVED Hgb 10 on admission and has dropped to 8 range related to IV fluids. Suspect chronic from cancer and from treatment. B12 normal Iron studies noted. S/p 2 units of pRBC on 10/01. Hemoglobin is 12.5 g/dL. New leukocytosis possibly reactive to blood, improved WBC 14.6>12.2 On Epogen 10,000 units TID with HD Follow blood count, stable today 12.1/37.4 (5) Breast cancer metastasized to liver: Code(s): C50.919 - Malignant neoplasm of unspecified site of unspecified female breast; C78.7 - Secondary malignant neoplasm of liver and intrahepatic bile duct Status: Chronic Assessment and Plan: Stable. CA15-3 l
--- NOTE | 2023-10-08 12:34 | PC.NURSE ---
Pt found at 87% during nap, encouraged deep breathing, pt recovered to 92% on room air. Provider, Annalisa Small, aware. Will continue to monitor.
--- NOTE | 2023-10-08 13:50 | PM.PNNEP ---
Progress Note: A&P Assessment and Plan (1) Acute kidney injury: Code(s): N17.9 - Acute kidney failure, unspecified Status: Acute Assessment and Plan: due to biopsy proven ATN significance of myoglobin in the tubules suggests rhabdomyolysis (but her CPK has been normal) urine output continues to fluctuate BUN + creatinine continues to rise between dialysis treatments continue Mon/Mon/Monday dialysis schedule - plan HD tomorrow follow trend of repeat labs and UOP to assess for potential renal recovery (2) Stage 3b chronic kidney disease: Code(s): N18.32 - Chronic kidney disease, stage 3b Status: Chronic Assessment and Plan: baseline creatinine runs ~ 1.3 - 1.5mg presumably due to hypertension and age (?) serology and immunofixation are negative (3) HTN (hypertension) with goal to be determined: Code(s): I10 - Essential (primary) hypertension Status: Chronic Assessment and Plan: better controlled at this time on oral bumex and PRN IV hydralazine midodrine discontinued (4) Anemia: Code(s): D64.9 - Anemia, unspecified Status: Acute Assessment and Plan: s/p PRBC transfusion (on 10/01) H/H doing better at this time hold Epogen for now follow trend of H/H (5) Metabolic acidosis: Code(s): E87.20 - Acidosis, unspecified Status: Acute Assessment and Plan: due to BETI/ARF resolved/stable with dialytic intervention off bicarbonate supplements (6) Nausea and vomiting: Code(s): R11.2 - Nausea with vomiting, unspecified Status: Acute Assessment and Plan: assumption was this was due to uremia getting good clearance of uremic toxins with dialysis still having some on/off symptoms but improving diet liberalized antiemetics as needed (7) Metastatic cancer to liver: Code(s): C78.7 - Secondary malignant neoplasm of liver and intrahepatic bile duct Status: Chronic Assessment and Plan: on Arimidex and Ibrance long-term on hold since admission Will continue to follow. Subjective Date/time seen: 10/08/23 13:50 Interval history: Follow-up for acute kidney injury/acute renal failure on chronic kidney disease requiring renal replacement therapy/dialysis. Appears to be doing reasonably well at the time of my visit; nausea appears to be doing better in general; breathing/respiratory status stable if not better (was not on supplemental oxygen when seen); no issues/events overnight or earlier this morning. Exam Narrative: General: elderly female in NAD Heart: normal S1 and S2; no rub Lungs: clear to auscultation Abdomen: soft, nontender, nondistended, positive bowel sounds Extremities: no cyanosis or clubbing; trace edema Skin: warm and intact Objective Data Vital Signs Vital Signs: Vital Signs Temp Pulse Resp BP Pulse Ox O2 Del Method O2 Flow Rate 10/08/23 12:00 97.6 F 93 18 140/55 L 92 Room Air 10/08/23 09:56 93 Room Air 10/08/23 09:55 95 Nasal Cannula 1 10/08/23 08:00 98.5 F 94 18 137/69 95 10/08/23 04:00 96 10/08/23 00:00 92 10/08/23 04:00 98.3 F 96 18 134/72 96 10/08/23 00:00 98.2 F 90 16 142/64 H 97 10/07/23 20:00 98 16 96 Nasal Cannula 1 10/07/23 20:00 96 10/07/23 20:00 97.6 F 98 16 157/62 H 96 Intake/Output Intake/Output: Intake & Output 10/05/23 10/06/23 10/07/23 10/08/23 23:59 23:59 23:59 23:59 Intake Total 920 1440 350 460 Output Total 1002 200 Balance 920 438 350 260 Meds/Results Medications: Active Medications Generic Name Dose Route Start Last Admin Trade Name Freq PRN Reason Stop Dose Admin Acetaminophen 1,000 mg 09/28/23 18:13 Acetaminophen 500 Mg Tablet PO Q6H PRN Mild Pain (1-3) or Fever Hydrocodone Bitart/Acetaminophen 1 tab 09/28/23 18:13 Hydrocodone/Acetaminophen (*Crx) 5-325 Mg
--- NOTE | 2023-10-08 13:50 | P.PNNP_ITS ---
Progress Note: A&P Assessment and Plan (1) Acute kidney injury: Code(s): N17.9 - Acute kidney failure, unspecified Status: Acute Assessment and Plan: * due to biopsy proven ATN * significance of myoglobin in the tubules suggests rhabdomyolysis (but her CPK has been normal) * urine output continues to fluctuate * BUN + creatinine continues to rise between dialysis treatments * continue Mon/Mon/Monday dialysis schedule - plan HD tomorrow * follow trend of repeat labs and UOP to assess for potential renal recovery (2) Stage 3b chronic kidney disease: Code(s): N18.32 - Chronic kidney disease, stage 3b Status: Chronic Assessment and Plan: * baseline creatinine runs ~ 1.3 - 1.5mg * presumably due to hypertension and age (?) * serology and immunofixation are negative (3) HTN (hypertension) with goal to be determined: Code(s): I10 - Essential (primary) hypertension Status: Chronic Assessment and Plan: * better controlled at this time * on oral bumex and PRN IV hydralazine * midodrine discontinued (4) Anemia: Code(s): D64.9 - Anemia, unspecified Status: Acute Assessment and Plan: * s/p PRBC transfusion (on 10/01) * H/H doing better at this time * hold Epogen for now * follow trend of H/H (5) Metabolic acidosis: Code(s): E87.20 - Acidosis, unspecified Status: Acute Assessment and Plan: * due to BETI/ARF * resolved/stable with dialytic intervention * off bicarbonate supplements (6) Nausea and vomiting: Code(s): R11.2 - Nausea with vomiting, unspecified Status: Acute Assessment and Plan: * assumption was this was due to uremia * getting good clearance of uremic toxins with dialysis * still having some on/off symptoms but improving * diet liberalized * antiemetics as needed (7) Metastatic cancer to liver: Code(s): C78.7 - Secondary malignant neoplasm of liver and intrahepatic bile duct Status: Chronic Assessment and Plan: * on Arimidex and Ibrance long-term * on hold since admission Will continue to follow. Subjective Date/time seen: 10/08/23 13:50 Interval history: Follow-up for acute kidney injury/acute renal failure on chronic kidney disease requiring renal replacement therapy/dialysis. Appears to be doing reasonably well at the time of my visit; nausea appears to be doing better in general; breathing/respiratory status stable if not better (was not on supplemental oxygen when seen); no issues/events overnight or earlier this morning. Exam Narrative: General: elderly female in NAD Heart: normal S1 and S2; no rub Lungs: clear to auscultation Abdomen: soft, nontender, nondistended, positive bowel sounds Extremities: no cyanosis or clubbing; trace edema Skin: warm and intact Objective Data Vital Signs Vital Signs: Vital Signs Temp Pulse Resp BP Pulse Ox O2 Del Method O2 Flow Rate 10/08/23 12:00 97.6 F 93 18 140/55 L 92 Room Air 10/08/23 09:56 93 Room Air 10/08/23 09:55 95 Nasal Cannula 1 10/08/23 08:00 98.5 F 94 18 137/69 95 10/08/23 04:00 96 10/08/23 00:00 92 10/08/23 04:00 98.3 F 96 18 134/72 96 10/08/23 00:00 98.2 F 90 16 142/64 H 97 10/07/23 20:00 98 16 96 Nasal C
[2023-10-08] MEDS: HYDROcodone/acetaminophen (*CRX) 5-325 MG TABLET 1 TAB PO (17:15)
[2023-10-08] MEDS: clonazePAM (*CRX) 0.5 MG TABLET PO (21:11)
[2023-10-09] VITALS (20 sets, daily range): BP systolic 96–160; BP diastolic 64–87; PULSE 75–126; RESP 16–18; TEMP 36.3–37; O2SAT 93–96
[2023-10-09 05:54] LABS: Hematocrit 39.4 % (37.0-47.0); Immature Platelet Fraction Pct 4.5 % (0.9-11.2); Mean Corpuscular Hemoglobin 34.5 pg (26-34); Mean Corpuscular Volume 104.5 fl (80-100); Mean Platelet Volume 11.6 fl (7.4-10.4); Platelet Count Result 77 k/mm3 (150-375); Red Blood Count 3.77 M/mm3 (4.2-5.4); Red Cell Distribution Width 18.6 % (11.5-14.5); White Blood Count 8.3 K/mm3 (4.5-10.0)
[2023-10-09] MEDS: LEVOTHYROXINE SODIUM 75 MCG TABLET PO (05:54)
[2023-10-09] MEDS: LINACLOTIDE 145 MCG CAPSULE PO (05:54)
[2023-10-09 06:03] LABS: Alanine Aminotransferase 24 U/L (6-35); Albumin Level 3.6 g/dL (3.5-5.1); Alkaline Phosphatase 72 U/L (38-126); Anion Gap 17 mmol/L (4-12); Aspartate Amino Transferase 21 U/L (14-36); Bilirubin,Total 0.8 mg/dL (0.2-1.3); Blood Urea Nitrogen 108 mg/dL (7-17); Calcium 7.8 mg/dL (8.4-10.2); Carbon Dioxide 26 mmol/L (22-30); Chloride 92 mmol/L (98-107); Estimated CRCL calculation 6 ml/min; Estimated Glomerular Filt Rate 6; Glucose 95 mg/dL (65-110); Magnesium 1.8 mg/dL (1.6-2.3); Potassium 3.6 mmol/L (3.4-5.0); Sodium 135 mmol/L (137-145)
--- NOTE | 2023-10-09 07:49 | PCPTNOTE ---
The patient treatment was not able to be completed at this time due to patient in dialysis. Will plan to continue treatment per plan of care.
--- NOTE | 2023-10-09 07:52 | PC.NURSE ---
Patient to dialysis via bed.
--- NOTE | 2023-10-09 08:30 | PCOTNOTE ---
Patient out of the room at this time. Patient is in dialysis.
--- NOTE | 2023-10-09 09:20 | PCNFU ---
Nutrition Follow-Up Complete: Suboptimal po intake related to food preference as evidenced by pt report Goal: PO intake 75% of meals - Goal is being met. Continue with same goal Pt current nutrition is Low phosphorus diet. Nepro BID for additional 420 kcal and 19 g protein each. Nutrition recommendation: No new nutrition recommendations. Continue with current nutrition care plan and orders. Agree with orders Last recorded weight is 51.3 kg. Bowel Motility: +2 BMs 10/06/23 Labs Reviewed: Na 135, BUN 108, Cre 6.3, PO4 6.5 Meds Noted: Zofran, protonix, Vit B12 Skin: No skin issues Additional Notes: Appetite is fair to good, intakes 75-100%. No intakes noted on Nepro. Nausea improving per notes. Monitor intake, wt, labs. Follow up in 5 days.
[2023-10-09] MEDS: SODIUM CHLORIDE 0.9% IV 1,000 ML 999 ML IV CONT (10:21)
[2023-10-09] MEDS: HEPARIN SODIUM 1,000 UNITS/ML VIAL 4000 UNITS (10:22)
--- NOTE | 2023-10-09 10:30 | PM.PNNEP ---
Progress Note: A&P Assessment and Plan (1) Acute kidney injury: Code(s): N17.9 - Acute kidney failure, unspecified Status: Acute Assessment and Plan: due to biopsy proven ATN significance of myoglobin in the tubules suggests rhabdomyolysis (but her CPK has been normal) urine output fluctuate BUN + creatinine continues to rise between dialysis treatments continue Mon/Mon/Monday dialysis schedule - HD today follow trend of repeat labs and UOP to assess for potential renal recovery (2) Stage 3b chronic kidney disease: Code(s): N18.32 - Chronic kidney disease, stage 3b Status: Chronic Assessment and Plan: baseline creatinine runs ~ 1.3 - 1.5mg presumably due to hypertension and age (?) serology and immunofixation are negative (3) HTN (hypertension) with goal to be determined: Code(s): I10 - Essential (primary) hypertension Status: Chronic Assessment and Plan: better controlled at this time on oral bumex and PRN IV hydralazine midodrine discontinued (4) Anemia: Code(s): D64.9 - Anemia, unspecified Status: Acute Assessment and Plan: s/p PRBC transfusion (on 10/01) H/H doing better at this time hold Epogen for now follow trend of H/H (5) Metabolic acidosis: Code(s): E87.20 - Acidosis, unspecified Status: Acute Assessment and Plan: due to BETI/ARF resolved/stable with dialytic intervention off bicarbonate supplements (6) Nausea and vomiting: Code(s): R11.2 - Nausea with vomiting, unspecified Status: Acute Assessment and Plan: assumption was this was due to uremia getting good clearance of uremic toxins with dialysis still having some on/off symptoms but improving diet liberalized antiemetics as needed (7) Metastatic cancer to liver: Code(s): C78.7 - Secondary malignant neoplasm of liver and intrahepatic bile duct Status: Chronic Assessment and Plan: on Arimidex and Ibrance long-term on hold since admission Will continue to follow. Subjective Date/time seen: 10/09/23 10:30 Interval history: Follow-up for acute kidney injury/acute renal failure on chronic kidney disease requiring renal replacement therapy/dialysis. Tolerating dialysis treatment at the time if my visit (seen on HD at 10:20AM); no apparent distress voiced; back on supplemental oxygen at this time; no other issues/events overnight or earlier this morning; possible discharge to [facility] later today. Exam Narrative: General: elderly female in NAD Heart: normal S1 and S2; no rub Lungs: clear to auscultation Abdomen: soft, nontender, nondistended, positive bowel sounds Extremities: no cyanosis or clubbing; trace edema Skin: no rash Objective Data Vital Signs Vital Signs: Vital Signs Temp Pulse Resp BP Pulse Ox O2 Del Method FiO2 10/09/23 10:30 119 H 134/85 10/09/23 10:00 118 H 137/83 10/09/23 09:45 116 H 117/67 10/09/23 09:30 119 H 111/69 10/09/23 11:47 97.3 F L 119 H 16 128/66 96 10/09/23 11:35 126 H 96/75 L 10/09/23 11:00 120 H 116/77 10/09/23 10:15 120 H 146/87 H 10/09/23 09:15 108 H 134/83 10/09/23 09:00 105 H 149/84 H 10/09/23 08:30 98 148/72 H 10/09/23 08:15 98 133/64 10/09/23 08:45 100 160/82 H 10/09/23 08:04 96 148/69 H 10/09/23 07:54 98.2 F 100 16 142/73 H 96 10/09/23 07:54 96 10/09/23 07:35 97.6 F 102 H 18 152/68 H 94 10/09/23 04:00 97.8 F 83 18 140/69 93 10/09/23 00:00 97.9 F 75 18 142/72 H 94 10/08/23 20:00 97.9 F 101 H 18 153/73 H 93 10/08/23 20:00 Room Air 10/08/23 17:19 Room Air Intake/Output Intake/Output: Intake & Output 10/06/23 10/07/23 10/08/23 10/09/23 23:59 23:59 23:59 23:59 Intake Total 1440 350 765 230 Output Total 4384 157 3561 Balance 438 35
--- NOTE | 2023-10-09 10:30 | P.PNNP_ITS ---
Progress Note: A&P Assessment and Plan (1) Acute kidney injury: Code(s): N17.9 - Acute kidney failure, unspecified Status: Acute Assessment and Plan: * due to biopsy proven ATN * significance of myoglobin in the tubules suggests rhabdomyolysis (but her CPK has been normal) * urine output fluctuate * BUN + creatinine continues to rise between dialysis treatments * continue Mon/Mon/Monday dialysis schedule - HD today * follow trend of repeat labs and UOP to assess for potential renal recovery (2) Stage 3b chronic kidney disease: Code(s): N18.32 - Chronic kidney disease, stage 3b Status: Chronic Assessment and Plan: * baseline creatinine runs ~ 1.3 - 1.5mg * presumably due to hypertension and age (?) * serology and immunofixation are negative (3) HTN (hypertension) with goal to be determined: Code(s): I10 - Essential (primary) hypertension Status: Chronic Assessment and Plan: * better controlled at this time * on oral bumex and PRN IV hydralazine * midodrine discontinued (4) Anemia: Code(s): D64.9 - Anemia, unspecified Status: Acute Assessment and Plan: * s/p PRBC transfusion (on 10/01) * H/H doing better at this time * hold Epogen for now * follow trend of H/H (5) Metabolic acidosis: Code(s): E87.20 - Acidosis, unspecified Status: Acute Assessment and Plan: * due to BETI/ARF * resolved/stable with dialytic intervention * off bicarbonate supplements (6) Nausea and vomiting: Code(s): R11.2 - Nausea with vomiting, unspecified Status: Acute Assessment and Plan: * assumption was this was due to uremia * getting good clearance of uremic toxins with dialysis * still having some on/off symptoms but improving * diet liberalized * antiemetics as needed (7) Metastatic cancer to liver: Code(s): C78.7 - Secondary malignant neoplasm of liver and intrahepatic bile duct Status: Chronic Assessment and Plan: * on Arimidex and Ibrance long-term * on hold since admission Will continue to follow. Subjective Date/time seen: 10/09/23 10:30 Interval history: Follow-up for acute kidney injury/acute renal failure on chronic kidney disease requiring renal replacement therapy/dialysis. Tolerating dialysis treatment at the time if my visit (seen on HD at 10:20AM); no apparent distress voiced; back on supplemental oxygen at this time; no other issues/events overnight or earlier this morning; possible discharge to [facility] later today. Exam Narrative: General: elderly female in NAD Heart: normal S1 and S2; no rub Lungs: clear to auscultation Abdomen: soft, nontender, nondistended, positive bowel sounds Extremities: no cyanosis or clubbing; trace edema Skin: no rash Objective Data Vital Signs Vital Signs: Vital Signs Temp Pulse Resp BP Pulse Ox O2 Del Method FiO2 10/09/23 10:30 119 H 134/85 10/09/23 10:00 118 H 137/83 10/09/23 09:45 116 H 117/67 10/09/23 09:30 119 H 111/69 10/09/23 11:47 97.3 F L 119 H 16 128/66 96 10/09/23 11:35 126 H 96/75 L 10/09/23 11:00 120 H 116/77 10/09/23 10:15 120 H 146/87 H 10/09/23 09:15 108 H 134/83 10/09/23 09:00 105 H 149/84 H
[2023-10-09] MEDS: CYANOCOBALAMIN 500 MCG TABLET PO (11:57)
[2023-10-09] MEDS: buPROPion HCL XL (24 HR) 150 MG TABCR 300 MG PO (11:57)
[2023-10-09] MEDS: ASPIRIN 81 MG CHEWABLE TABLET PO (11:58)
[2023-10-09] MEDS: BUMETANIDE 1 MG TABLET 2 MG PO (11:58)
[2023-10-09] MEDS: DOCUSATE SODIUM 100 MG CAPSULE PO (11:58)
--- NOTE | 2023-10-09 11:58 | PC.NURSE ---
Pt. back from dialysis at 11:55.
--- NOTE | 2023-10-09 12:08 | PCOTNOTE ---
Patient stated she just got back from dialysis, states had a bad session, needed O2. Patient states she is feeling so weak and nauseated. Patient declined to participate in therapy services this date.
--- NOTE | 2023-10-09 12:49 | PM.DS ---
DS: Admitting Diagnosis Discharge Date 10/09/2023 Admitting Diagnosis Acute on chronic renal failure/COPD exacerbation DS: Discharge Diagnosis Discharge Diagnosis (1) Acute on chronic renal failure: Code(s): N17.9 - Acute kidney failure, unspecified; N18.9 - Chronic kidney disease, unspecified Status: Acute Assessment and Plan: ATN confirmed with biopsy Patient with underlying CKD with baseline creatinine recently running 1.2-1.5 range Creatinine 6.1 on admission. BUN 74. Potassium was normal. She has metabolic acidosis with bicarb of 18 and anion gap of 18 UA noted. FENa 5.8% to suggest intrinsic renal disease 09/28 Renal Biopsy---renal biopsy shows acute tubular necrosis with myoglobin in the tubules suggesting rhabdomyolysis . CPK was normal on admission. Holding rosuvastatin given this information. Only 10% fibrosis seen and nephrology is hopeful renal recovery is a possibility. 09/28 Renal US showing normal kidneys 10/03 Hypotensive with dialysis and lost consciousness. Dialysis nurse planned to discuss with renal Held Bumex 10/03 (IV Bumex 2mg BID IV was changed to PO by Dr Schmidt). Potassium low, had a 4K bath with dialysis Was not eating well so liberalized diet PLAN Nephrology consulted, appreciate recs --Was not eating well, but appetite improved with liberalized diet. Continue low phos diet --Resume bumex since blood pressure trending up DISCHARGE PLANNING S/P right PermCath on 09/27 HD MWF scheduled, has a chair at [facility] in [address] Clarify bumex dose for discharge, if continued hypotension with dialysis Regular diet at discharge if potassium stable (2) Acute bronchitis: Code(s): J20.9 - Acute bronchitis, unspecified Status: Acute Assessment and Plan: Patient reported a productive cough, improved. Completed a course of azithromycin prior to admission. Sputum culture are negative, blood culture, and urine culture all negative. Completed Levaquin & 5 days of Prednisone (09/30-10/04) IMAGING 09/23 Chest x-ray shows hyperinflation with flattened diaphragm 09/25 Chest x-ray Small left pleural effusion with likely adjacent left basilar atelectasis. Infection/aspiration not excluded. 09/29 Chest XR shows left basilar airspace disease, atelectasis versus pneumonia and small pleural effusions 8/2 CHEST XR shows Probable COPD. Clear lungs. PLAN Still on 1-2L NC (not on home O2) wean as tolerated no wheezing. Nebs prn (3) Nausea and vomiting: Code(s): R11.2 - Nausea with vomiting, unspecified Status: Acute Assessment and Plan: Persistent nausea and vomiting since admission, better today. Improved with phenergan, dialysis and regular diet. Zofran and compazine weren't as helpful. She also had a problem with chronic constipation. Restarted home Linzess. 09/29 KUB shows normal gas pattern PLAN Follow intake Phenergan PRN Miralax scheduled daily (4) Anemia: Code(s): D64.9 - Anemia, unspecified Status: Acute Assessment and Plan: RESOLVED Hgb 10 on admission and has dropped to 8 range related to IV fluids. Suspect chronic from cancer and from treatment. B12 normal Iron studies noted. S/p 2 units of pRBC on 10/01. Hemoglobin is 12.5 g/dL. New leukocytosis possibly reactive to blood, improved WBC 14.6>12.2 On Epogen 10,000 units TID with HD Follow blood count, stable today 12.1/37.4 (5) Breast cancer metastasized to liver: Code(s): C50.919 - Malignant neoplasm of unspecified site of unspecified female breast; C78.7 - Secondary malignant neoplasm of liver and intrahepatic bile duct Status: Chronic Assessment and Plan: Stable. CA15-3 level normal earlier this month. On Arimidex and Ibrance Follows with Dr Alatorre (6) Hypotensive syncope: Code(s): R55 - Syncope and collapse Status: Acute Assessment and Plan: 10/03 Blood pressure with dialysis 62/44 and patient syncopize
[2023-10-09] MEDS: ONDANSETRON HCL ODT 4 MG TABLET 8 MG PO (13:27)
[2023-10-09 15:14] LABS: Heparin Induced Platelet Antib Negative (Negative)
[2023-10-17 03:19] LABS: Legionella pneumophila Ag Ur NOT DETECTED
== END 2023-10-09 14:55 | DRG 674 ==
LOC: ANHED 08:04 → ANH3MEDSUR 08:20
PROVIDERS: Emergency Medicine; Family Medicine; Internal Medicine; Internal Medicine Nephrology; Nurse Practitioner; Nurse Practitioner Acute Care; Student in an Organized Health Care Education/Training Program; Surgery; Admitting Provider Internal Medicine; Emergency Provider Emergency Medicine; PCP Physician Assistant; Visit Provider Nurse Practitioner Family
PROC: 06HN33Z Insertion of Infusion Device into Left Femoral Vein, Percutaneous Approach (ICD-10-PCS; CPT 36908; principal; 2023-09-27 15:00)
PROC: 0JH63XZ Insertion of Tunneled Vascular Access Device into Chest Subcutaneous Tissue and Fascia, Percutaneous Approach (ICD-10-PCS; CPT 36908; principal; 2023-09-28 16:00)
DX: N17.0 Acute kidney failure with tubular necrosis (principal); C78.7 Secondary malignant neoplasm of liver and intrahepatic bile duct; E87.20 Acidosis, unspecified; J44.0 Chronic obstructive pulmonary disease with (acute) lower respiratory infection; M62.82 Rhabdomyolysis; J44.1 Chronic obstructive pulmonary disease with (acute) exacerbation; D53.9 Nutritional anemia, unspecified; I25.10 Atherosclerotic heart disease of native coronary artery without angina pectoris; J20.9 Acute bronchitis, unspecified; K21.9 Gastro-esophageal reflux disease without esophagitis; E78.5 Hyperlipidemia, unspecified; E86.0 Dehydration; I13.10 Hypertensive heart and chronic kidney disease without heart failure, with stage 1 through stage 4 chronic kidney disease, or unspecified chronic kidney disease; K59.00 Constipation, unspecified; I95.3 Hypotension of hemodialysis; E87.70 Fluid overload, unspecified; D69.6 Thrombocytopenia, unspecified; D63.0 Anemia in neoplastic disease; R11.2 Nausea with vomiting, unspecified; N18.32 Chronic kidney disease, stage 3b; E83.51 Hypocalcemia; E03.9 Hypothyroidism, unspecified; F17.210 Nicotine dependence, cigarettes, uncomplicated; Z66 Do not resuscitate; F41.8 Other specified anxiety disorders; Z85.3 Personal history of malignant neoplasm of breast; Z90.11 Acquired absence of right breast and nipple; Z90.49 Acquired absence of other specified parts of digestive tract; Z95.5 Presence of coronary angioplasty implant and graft
CPT/HCPCS: 36415; 36430; 36600; 50200; 71045; 71046; 74018; 76775; 76942; 77001; 80048; 80053; 80069; 80074; 81001; 81050; 82274; 82306; 82550; 82570; 82607; 82728; 82746; 82805; 83540; 83550; 83735; 83883; 83970; 84100; 84132; 84133; 84145; 84156; 84300; 84484; 85025; 85027; 85046; 85055; 85610; 85652; 85999; 86022; 86038; 86039; 86060; 86160; 86162; 86334; 86335; 86703; 86705; 86706; 86803; 86850; 86900; 86901; 86923; 87040; 87070; 87086; 87205; 87340; 87449; 87899; 88300; 88305; 88313; 88329; 88341; 88342; 88346; 88348; 88350; 93005; 93971; 94640; 96361; 97110; 97116; 97162; 97165; 97530; 97535; 99285; A9270; C1750; C1752; G0257; G0378; G0432; J0360; J0456; J0612; J0696; J0780; J1644; J1939; J2405; J2550; J2704; J2919; J3010; J7030; J7040; J7050; J7070; J7512; P9016; Q4081; Q5105

== ENCOUNTER 2023-12-05 12:31 | Outpatient (CLI) | payer MEDICARE, SELFPAY ==
[2023-12-05 12:52] LABS: Hematocrit 31.9 % (37.0-47.0); Hemoglobin 10.3 g/dL (12.0-15.0); Mean Corpuscular HGB Conc 32.3 g/dl (32-36); Mean Corpuscular Volume 102.2 fl (80-100); Mean Platelet Volume 10.4 fl (7.4-10.4); Platelet Count Result 241 k/mm3 (150-375); Red Blood Count 3.12 M/mm3 (4.2-5.4); Red Cell Distribution Width 16.9 % (11.5-14.5); White Blood Count 4.4 K/mm3 (4.5-10.0)
[2023-12-05 14:31] LABS: Albumin Level 4.4 g/dL (3.5-5.1); Anion Gap 10 mmol/L (4-12); Blood Urea Nitrogen 36 mg/dL (7-17); Calcium 9.6 mg/dL (8.4-10.2); Carbon Dioxide 25 mmol/L (22-30); Chloride 104 mmol/L (98-107); Estimated Glomerular Filt Rate 20; Glucose 113 mg/dL (65-110); Phosphorus 3.5 mg/dL (2.5-4.5); Potassium 4.4 mmol/L (3.4-5.0); Sodium 139 mmol/L (137-145)
== END 2023-12-05 12:32 | disposition home or self-care (01) ==
PROVIDERS: Internal Medicine Nephrology; PCP Physician Assistant; Visit Provider Internal Medicine Hematology & Oncology
DX: N18.32 Chronic kidney disease, stage 3b (principal); K21.9 Gastro-esophageal reflux disease without esophagitis
CPT/HCPCS: 36415; 80069; 85027

== ENCOUNTER 2023-12-15 13:06 | Outpatient (CLI) | payer MEDICARE, SELFPAY ==
[2023-12-15 13:40] LABS: INR 0.9; Prothrombin Time 12.9 Seconds (11.1-14.7)
[2023-12-15 13:41] LABS: Partial Thromboplastin Time 25.3 Seconds (22.3-36.8)
== END 2023-12-15 13:07 | disposition home or self-care (01) ==
PROVIDERS: Anesthesiology; PCP Internal Medicine; Visit Provider Surgery
DX: N18.9 Chronic kidney disease, unspecified (principal)
CPT/HCPCS: 36415; 85610; 85730

== ENCOUNTER 2023-12-20 01:45 | Day surgery (SDC) | payer MEDICARE, SELFPAY ==
[2023-12-14 13:54] VITALS: BMI 17.9
--- NOTE | 2023-12-14 14:02 | PC.NURSE ---
Report to the Outpatient Waiting Room, entrance under the green pavilion located off [facility], at time _1130_ on date _12-04-2424_. Planned Procedure Time: _130pm_.? Time changes happen often and if your time is changed the preop area will call you the afternoon before. - You and your visitor will be asked to self-screen and do not enter if you have any COVID symptoms. Please call surgeon if you need to reschedule. - A mask is optional within the hospital at this time. Patients may have clear liquids (water, carbonated beverages, clear teas, apple juice) until 3 hours prior to surgery with a maximum of 20 ounces. - No food from midnight until time of surgery and no smoking Take only the following medications with a SIP of water on the morning of surgery: __Bupropion, Levothyroxine, Metoprolol and Anastrozole DO NOT STOP ANY OF YOUR OTHER PRESCRIPTION MEDICATIONS PRIOR TO SURGERY EXCEPT THE FOLLOWING Medications to discontinue per physician ___Vitamin B-12 and Vitamin D3 Date to take last zgyi___[phone] Please no make-up, nail telugu, hairspray, perfume, deodorant, or body powder the day of surgery.? No jewelry (including any body piercings) or valuables the day of surgery, leave them at home.? Please take a shower or bath the night before, or the morning of, surgery with an antibacterial soap.? Wear comfortable, loose fitting clothing.? - Jewelry must be removed prior to entering the operating room.? Rings and piercings that are not removed may be cut off. - The hospital will not accept responsibility for valuables.? - Please leave all valuables, including medications, at home the day of surgery. If you are going home after surgery, a licensed chassis driver must drive you home.? - NO public transportation without another adult if you receive anesthesia. - We recommend that an adult stay with you for 24 hours following discharge. - We also recommend that you do not drive, make important decision, drink alcoholic beverages, or take any drugs that were not prescribed by your health care provider for at least 24 hours after your discharge time. Follow any additional instructions given to you from your surgeon. Telephone instructions given to __Vania___and asked if any additional questions and then verbalized understanding. Patient advised to call surgeon office or pre surgery nurse liaison [phone] if any additional questions.
[2023-12-20 11:15] VITALS: BP 149/52; PULSE 72; RESP 16; TEMP 36.4; O2SAT 99; BMI 18.0
--- NOTE | 2023-12-20 11:47 | PM.IMHP ---
H&P: HPI History of Present Illness Date/Time: 12/20/23 11:47 Chief Complaint: Chronic renal failure Narrative: The patient is a 73-year-old female with multiple medical issues including chronic renal failure presenting for removal of right subclavian tunneled dialysis catheter. The patient had the catheter placed in late September by Dr. Soria for acute on chronic renal failure. The patient had dialysis for approximately 6 weeks and then had recovery of her kidney function enough to come off hemodialysis. Patient has been stable since November without hemodialysis. She presents at this time for removal of tunneled hemodialysis catheter. Review of Systems Review of Systems: All systems reviewed & are unremarkable except as noted in HPI and below PMFSH Past Medical History Medical History Breast cancer Breast cancer metastasized to liver Cancer of right breast (1997) Status post mastectomy and chemo radiation. Metastatic disease to liver discovered in 2022. Change in bowel habits Chronic anemia Chronic kidney disease Chronic obstructive pulmonary disease Colon cancer screening Constipation Coronary artery disease Depression with anxiety Gastroesophageal reflux disease Hyperlipidemia Hypertension Hypothyroidism Nausea and vomiting Other drug-induced pancytopenia Surgical History Surgical History History of appendectomy History of bladder repair surgery History of cardiac catheterization History of cholecystectomy (2012) History of coronary artery stent placement History of resection of small bowel (1979) History of right mastectomy (1997) History of sinus surgery History of tonsillectomy Family History Family History Mother Patient's mother is Family history of diabetes mellitus in first degree relative Family history of lung cancer Family history of congestive heart failure Father Family history of malignant neoplasm, Onset Age: 73 Patient's father is Social History Social History Social History: Surrogate medical decision maker: Dixon Tomlinson, son. Code status: DNR Smoking packs per day: 1 Smoking cigarettes per day: 20.0 Years smoked: 50 Smoking pack-years: 50.00 Smoking status: Never smoker Tobacco type: cigarettes Second hand tobacco smoke exposure: Yes Additional smoking assessment comments: 1-2 cig a day presently Alcohol intake: never Substance use: never Substance use type: does not use Do You Feel Safe in your Home?: Yes Lack of Transportation: No Lack of Food: Never True Current Housing: I Have Housing Concerned About Future Housing: No Difficulty Paying Gas/Electric Bills: No Difficulty Paying for Meds: No Currently Unemployed: No Education: High School Diploma/GED Difficulty w/ Childcare or Family Care: No Living arrangements: with family Gender identity (if verbalized by the patient): Female Spiritual care concerns: No Meds Home Medications and Allergies Home Medications Medication Instructions Recorded Confirmed Type fluticasone propionate 50 2 spray intranasal DAILY PRN 03/21/19 12/14/23 History mcg/actuation nasal Allergy Symptoms spray,suspension (Flonase Allergy Relief) aspirin 81 mg tablet,delayed 81 mg PO DAILY 06/18/19 12/14/23 History release (Adult Low Dose Aspirin) fexofenadine 180 mg tablet 180 mg PO DAILY 08/20/21 12/14/23 History (Zakiya Allergy) anastrozole 1 mg tablet 1 mg PO DAILY 02/15/22 12/14/23 History palbociclib 125 mg capsule 125 mg PO DAILY 02/15/22 12/14/23 History (Ibrance) ferrous sulfate 325 mg (65 mg 325 mg PO DAILY 08/23/22 12/14/23 History iron) tablet cyanocobalamin (vitamin B-12) 500 500 mcg PO DAILY 09/02/2212/04
--- NOTE | 2023-12-20 12:05 | WPDHPUPDATE1 ---
History and Physical Update Update Date/Time: 12/20/23 12:05 History and Physical has been reviewed, including an updated exam of the patient. There are NO changes in the patient's condition. Risks, benefits, and alternatives have been discussed and questions answered. Patient agrees to proceed with procedure.
[2023-12-20] MEDS: SODIUM CHLORIDE 0.9% IV 500 ML 30 ML IV CONT (12:25)
--- NOTE | 2023-12-20 13:12 | WPDANESEPPF ---
Anes - Initial Pre Proc Eval Procedure: Operation Date: 12/20/23 13:30 Proposed Procedures p Removal of Tunnel Dialysis Catheter - Carito Vogt MD Date/Time: 12/20/23 13:12 Surgeon: Carito Vogt MD Pre Op Diagnosis: Chr Kidney Disease, Acute Kidney Failure Patient Data Age: 73 Gender: F Height: 1.57 m Weight: 44.8 kg Last Vital Signs Temp 36.4 C 12/20/23 11:15 Pulse 72 12/20/23 11:15 Resp 16 12/20/23 11:15 BP 149/52 H 12/20/23 11:15 Pulse Ox 99 12/20/23 11:15 O2 Del Method Room Air 12/20/23 11:15 Allergies Allergy/AdvReac Type Severity Reaction Status Date / Time amoxicillin Allergy Severe Anaphylactic Verified 12/14/23 13:50 Shock shellfish derived Allergy Severe itch, Verified 12/14/23 13:50 rash, SOB bacitracin Allergy Intermediate Unknown Verified 12/14/23 13:50 Iodinated Contrast Media Allergy Intermediate Swelling Verified 12/14/23 13:50 of Lip/Tongue/Throat ipratropium Allergy Intermediate rash, Verified 12/14/23 13:50 itchy, SOB latex Allergy Intermediate Hives Verified 12/14/23 13:50 neomycin Allergy Intermediate rash, Verified 12/14/23 13:50 [From Maxitrol (neomycin blisters, sulf)] hives nitrofurantoin Allergy Intermediate rash, Verified 12/14/23 13:50 [From Macrobid] itchy, SOB perfume Allergy Intermediate rash, Verified 12/14/23 13:50 hives, blisters polymyxin B Allergy Intermediate rash, Verified 12/14/23 13:50 [From Maxitrol (neomycin blisters, sulf)] hives cinnamon Allergy Nausea and Verified 12/14/23 13:50 Vomiting Sulfa (Sulfonamide Allergy Vomiting Verified 12/14/23 13:50 Antibiotics) FRAGRANCE Allergy Severe Blister Uncoded 12/14/23 13:50 laundry soap Tide and Gain Allergy Intermediate blisters, Uncoded 12/14/23 13:50 hives, itchiness, redness, rash Home Medications Medication Instructions Recorded Confirmed Type fluticasone propionate 50 2 spray intranasal DAILY PRN 03/21/19 12/14/23 History mcg/actuation nasal Allergy Symptoms spray,suspension (Flonase Allergy Relief) aspirin 81 mg tablet,delayed 81 mg PO DAILY 06/18/19 12/14/23 History release (Adult Low Dose Aspirin) fexofenadine 180 mg tablet 180 mg PO DAILY 08/20/21 12/14/23 History (Zakiya Allergy) anastrozole 1 mg tablet 1 mg PO DAILY 02/15/22 12/14/23 History palbociclib 125 mg capsule 125 mg PO DAILY 02/15/22 12/14/23 History (Ibrance) ferrous sulfate 325 mg (65 mg 325 mg PO DAILY 08/23/22 12/14/23 History iron) tablet cyanocobalamin (vitamin B-12) 500 500 mcg PO DAILY 09/02/22 12/14/23 History mcg tablet (Vitamin B-12) albuterol sulfate 90 mcg/actuation 2 inh inhalation QID #8.5 grams 08/10/23 12/14/23 Rx aerosol inhaler levothyroxine 75 mcg tablet 75 mcg PO DAILY #90 tabs 09/01/23 12/14/23 Rx rosuvastatin 40 mg tablet 40 mg PO DAILY 09/24/23 12/14/23 History clonazepam 0.5 mg tablet 0.5 mg PO HS 10/09/23 12/14/23 History tramadol 50 mg tablet 25 mg PO Q6H PRN Pain #28 tabs 10/19/23 12/14/23 Rx bupropion HCl 150 mg 24 hr tablet, 150 mg PO QAM 30 days #30 tabs 11/20/23 12/14/23 Rx extended release metoprolol tartrate 25 mg tablet See Rx Instructions .Route 11/20/23 12/14/23 Rx .COMPLEX #180 tabs omeprazole 20 mg capsule,delayed 20 mg PO DAILY #90 caps 11/30/23 12/14/23 Rx release ondansetron 4 mg disintegrating 4 mg PO Q8H PRN nausea and 12/05/23 12/14/23 Rx tablet vomiting #28 tabs cholecalciferol (vitamin D3) 125 125 mcg PO DAILY 12/14/23 12/14/23 History mcg (5,000 unit) tablet (Vitamin D3) linaclotide 72 mcg capsule 72 mcg Capsule#3 Samples 12/14/23 12/14/23 Sample (Linzess) Patient hx anesthesia problems: none Family hx anesthesia problems: none Results Review: All pre-operative results and documents have been reviewed as part of the pre-operative evaluation. [facility] Past Medical History Medical History (Reviewed 12/20/23 @ 13:12
[2023-12-20] MEDS: ceFAZolin 2 GM/D5W 50 ML 2 GM/50 ML BAG IVPB (13:44)
[2023-12-20] MEDS: BUPIVACAINE/EPINEPHRINE 0.5% 10 ML VIAL 20 ML INFILTRATE (14:03)
--- NOTE | 2023-12-20 14:17 | W.PM.PROC2 ---
Procedure Note - Detailed Date of Procedure 12/20/23 Pre-op Diagnosis chronic kidney disease Post-op Diagnosis Same Procedure Performed removal of right subclavian tunneled hemodialysis catheter Surgeon Carito Vogt MD Anesthesia MAC and Local Indications 73-year-old female presenting for removal of right subclavian tunneled hemodialysis catheter. Patient had the catheter placed in late September for acute on chronic renal failure. The patient did receive hemodialysis for approximately 4-6 weeks until her kidney function recovered. A since November her kidney function has recovered to the point she has no longer needed dialysis. She is now here for removal of the tunneled hemodialysis catheter. Findings Right subclavian tunneled hemodialysis catheter Description of Procedure The patient was taken to the operating room and placed in the supine position. After adequate MAC anesthesia the, the patient was prepped and draped in the sterile fashion. A time-out was then done to verify the patient's identity, as well as the procedure being performed. I began by localizing the area in and around the catheter especially around the area the cough. Once anesthetized, I used a hemostat to bluntly dissect around the cuff and the tunnel track. There was multiple loculations around especially the cuff. Once these were all taken down, I was able to easily remove the catheter in full. Pressure was then held at the level of the right subclavian vein for approximately 5 minutes. No bleeding was noted after pressure was held. I then closed the skin opening in the right chest with interrupted 3-0 nylon sutures. Pressure dressing was placed. The patient tolerated the procedure well was alert and oriented postoperatively. She will be transferred to the recovery room in stable condition. Estimated Blood Loss 5 Pathology None sent Complications No immediate complications Condition Stable Disposition PACU [facility] Billing Surgery - Charge Forward: Surgery Billing
[2023-12-20 14:20] VITALS: BP 159/53; PULSE 79; RESP 16; O2SAT 100
[2023-12-20 14:50] VITALS: BP 163/51; PULSE 73
[2023-12-20 15:20] VITALS: BP 161/56; PULSE 70
== END 2023-12-20 15:27 | disposition home or self-care (01) ==
PROVIDERS: PCP Internal Medicine; Visit Provider Surgery
PROC: (CPT 36589; principal; 2023-12-20 13:30)
DX: Z49.01 Encounter for fitting and adjustment of extracorporeal dialysis catheter (principal); D64.9 Anemia, unspecified; I12.9 Hypertensive chronic kidney disease with stage 1 through stage 4 chronic kidney disease, or unspecified chronic kidney disease; N18.32 Chronic kidney disease, stage 3b; K21.9 Gastro-esophageal reflux disease without esophagitis; E78.5 Hyperlipidemia, unspecified; J44.9 Chronic obstructive pulmonary disease, unspecified; I25.10 Atherosclerotic heart disease of native coronary artery without angina pectoris; F41.8 Other specified anxiety disorders; F17.210 Nicotine dependence, cigarettes, uncomplicated; Z79.82 Long term (current) use of aspirin; Z79.51 Long term (current) use of inhaled steroids; Z79.891 Long term (current) use of opiate analgesic; Z98.890 Other specified postprocedural states; Z90.49 Acquired absence of other specified parts of digestive tract; Z95.5 Presence of coronary angioplasty implant and graft; Z92.3 Personal history of irradiation; Z85.3 Personal history of malignant neoplasm of breast; Z85.05 Personal history of malignant neoplasm of liver; Z80.1 Family history of malignant neoplasm of trachea, bronchus and lung; Z82.49 Family history of ischemic heart disease and other diseases of the circulatory system
CPT/HCPCS: 36589; J0690; J2704; J3010; J7040

== ENCOUNTER 2024-01-22 14:06 | Outpatient (CLI) | payer MEDICARE, SELFPAY ==
[2024-01-22 14:26] LABS: Basophils Percent Auto 0.9 % (0.2-1.2); Eosinophils Percent Auto 1.4 % (0-4.4); Hematocrit 23.8 % (37.0-47.0); Hemoglobin 8.2 g/dL (12.0-15.0); Lymphocytes Percent Auto 46.1 % (18.3-44.2); Mean Corpuscular HGB Conc 34.5 g/dl (32-36); Mean Corpuscular Hemoglobin 36.1 pg (26-34); Mean Corpuscular Volume 104.8 fl (80-100); Mean Platelet Volume 11.1 fl (7.4-10.4); Monocytes Absolute Auto 0.2 K/mm3 (0.1-0.6); Monocytes Percent Auto 8.8 % (2.6-8.5); Neutrophils Absolute Auto 0.9 K/mm3 (1.3-6.7); Neutrophils Percent Auto 42.8 % (45.5-73.1); Platelet Count Result 105 k/mm3 (150-375); Red Blood Count 2.27 M/mm3 (4.2-5.4); Red Cell Distribution Width 17.9 % (11.5-14.5); White Blood Count 2.2 K/mm3 (4.5-10.0)
[2024-01-22 17:08] LABS: Anion Gap 9 mmol/L (4-12); Blood Urea Nitrogen 33 mg/dL (7-17); Carbon Dioxide 27 mmol/L (22-30); Chloride 103 mmol/L (98-107); Estimated Glomerular Filt Rate 31; Glucose 132 mg/dL (65-110); Potassium 3.6 mmol/L (3.4-5.0); Sodium 139 mmol/L (137-145)
[2024-01-23 06:57] LABS: Thyroid Stimulating Hormone 0.587 uIU/mL (0.465-4.680)
[2024-01-23 07:34] LABS: Folic Acid 9.1 ng/mL (2.76->20); Vitamin B12 > 1000.0 pg/mL (239-931)
[2024-01-24 06:39] LABS: CA 15-3 15 U/mL (<32)
== END 2024-01-22 14:07 | disposition home or self-care (01) ==
LOC: ANHLAB 14:07
PROVIDERS: Internal Medicine Nephrology; PCP Internal Medicine; Visit Provider Internal Medicine Hematology & Oncology
DX: R13.10 Dysphagia, unspecified (principal); R53.83 Other fatigue; N18.32 Chronic kidney disease, stage 3b; C50.919 Malignant neoplasm of unspecified site of unspecified female breast
CPT/HCPCS: 36415; 80048; 82607; 82746; 84443; 85025; 86300

== ENCOUNTER 2024-04-09 11:04 | Outpatient (CLI) | payer MEDICARE, SELFPAY ==
[2024-04-09 11:25] LABS: Hemoglobin 12.5 g/dL (12.0-15.0); Mean Corpuscular HGB Conc 31.3 g/dl (32-36); Mean Corpuscular Hemoglobin 32.1 pg (26-34); Mean Corpuscular Volume 102.6 fl (80-100); Mean Platelet Volume 10.2 fl (7.4-10.4); Platelet Count Result 247 k/mm3 (150-375); Red Cell Distribution Width 13.9 % (11.5-14.5); White Blood Count 9.5 K/mm3 (4.5-10.0)
--- OUTSIDE RECORDS SUMMARY | 2024-04-09 11:48 | XMS_ITS | Clinical Summary ---
Author Organization [facility] [address] [place] [address] Care Team Providers Care School Secretary Name Role Phone Jae Forrest DO Primary Care Provider [phone] Allergies Active Allergy Reactions Criticality Noted Date Comments Albuterol Itching Low Amoxicillin Rash Medium 05/30/2022 Bacitracin Itching Low 06/04/2020 Cinnamon Rash Medium 05/30/2022 Ipratropium-Albuterol Itching Low 06/04/2020 Iodine Hives Medium 06/04/2020 Ipratropium Latex Blisters High 06/04/2020 Neomycin Sulfate Other (See comments) Low 06/04/2020 Unknown Nitrofurantoin Shellfish Derived Other (See comments) High Reaction: unknown, Sulfa (Sulfonamide Antibiotics) Medications clonazePAM (KlonoPIN) 0.5 mg tablet take 1 tablet (0.5MG) by oral route every day 0 2 Active levothyroxine sodium (TIROSINT) 75 mcg capsule take 1 capsule (75MCG) by oral route every day 0 2 Active omeprazole 20 mg tablet,delayed release (DR/EC) take 1 by Oral route once 0 0 4 Active aspirin (ADULT LOW DOSE ASPIRIN) 81 mg enteric coated tablet Take 1 tablet (81 mg total) by mouth daily 9 Active triamcinolone (KENALOG) 0.1 % cream Apply topically 2 (two) times a day Active fexofenadine (AKBAR) 180 mg tablet Take 1 tablet (180 mg total) by mouth daily Active albuterol HFA (PROVENTIL HFA,VENTOLIN HFA,PROAIR HFA) 90 mcg/actuation inhaler USE 2 PUFFS EVERY 4 HOURS NEEDED FOR SHORTNESS OF BREATH OR WHEEZING 1 Active fluticasone propionate (FLONASE) 50 mcg/actuation nasal spray Administer 1 spray into each nostril daily Active anastrozole (ARIMIDEX) 1 mg tablet 2 Active Ibrance 2 Active calcium carbonate-vitamin D3 1,250mg (500mg elemental) - 5 mcg (200 units) per tablet Take 1 tablet by mouth daily Active ferrous sulfate 134 mg (27 mg of elemental iron) tablet Take 1 tablet (134 mg total) by mouth Active metoprolol tartrate (LOPRESSOR) 25 mg immediate release tablet Take 1 tablet (25 mg total) by mouth every 12 (twelve) hours Active ondansetron ODT (ZOFRAN-ODT) 4 mg disintegrating tablet DISSOLVE 1 TABLET ON THE TONGUE EVERY 8 HOURS NEEDED FOR NAUSEA OR VOMITING 4 Active traMADoL (ULTRAM) 50 mg tablet Take 0.5 tablets (25 mg total) by mouth every 6 (six) hours as needed 4 Active buPROPion XL (WELLBUTRIN XL) 150 mg 24 hr tablet Take 1 tablet (150 mg total) by mouth every morning 4 Active rosuvastatin (CRESTOR) 40 mg tabletIndications: Coronary artery disease involving king salmon coronary artery of king salmon heart without angina pectoris Take 1 tablet (40 mg total) by mouth daily 90 tablet 3 4 Active Active Problems Problem Noted Date Diagnosed Date Near syncope 07/21/2022 Dizziness 07/21/2022 Metastatic breast cancer 12/22/2021 Mixed hyperlipidemia 03/23/2021 Right carotid bruit 03/23/2021 Screening for AAA (abdominal aortic aneurysm) COPD (chronic obstructive pulmonary disease) Other specified hypothyroidism 06/03/2020 Chronic fatigue 06/03/2020 Labile hypertension 06/26/2017 S/P coronary artery stent placement 06/26/2017 Unknown and unspecified causes of morbidity 07/05 Overview (07/29/2016): Labile hypertension Benign hypertension 12/08/2015 Overview (06/10/2016): HTN (hypertension), benign Dyspnea on exertion 09/18/2015 Overview (06/09/2016): PERAZA (dyspnea on exertion) Tobacco use 09/18/2015 Overview (06/09/2016): Tobacco abuse Coronary artery disease invo lving king salmon coronary artery of king salmon heart without angina pectoris 09/18/2015 Overview (06/09/2016): Coronary artery disease involving king salmon coronary artery of king salmon heart without angina pectoris History of myocardial infarction 09/18/2015 Overview (06/10/2016): History of myocardial infarction Palpitations 09/18/2015 Overview (06/10/2016): Palpitations Resolved Problems Problem Noted Date Diagnosed Date Resolved Date Dyslipidemia 09/18/2015 03/23/2021 Overview (06/08/2016): Dyslipidemia Medical History Medical History Date Comments Hypothyroidism Hypothyroidism Malignant neoplasm of male breast (HCC) Cancer, breast Hx Other Medical iodine dye patrick rgy Hx Other Medical IBS, internal h emorrhoids Coronary artery disease Hypertension Family History Medical History Relation Name Comments No Known Problems Father No Known Problems Mother Relation Name Status Comments Father Mother Social History Tobacco Use Types Packs/Day Years Used Date Smoking Tobacco: Every Day Cigarettes Smokeless Tobacco: Never Tobacco Cessation:Ready to Q uit: Not Asked; Counseling Given: Not Answered Comments:Smoking History Packs/day: 1 Packs Alcohol Use Standard Drinks/Week Comments No 0 (1 standard drink = 0.6 oz pur e alcohol) Comments Unknown Sex and Gender Information Value Date Recorded Sex Assigned at Not on file Legal Sex Female 2:02 AM [employer] 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[employer] Gender Identity Not on file Sexual Orientation Not on file Obstetrics History Last Filed Vital Signs Vital Sign Reading Time Taken Comments Blood Pressure 132/54 12/12/2023 12:56 PM CDT Pulse 71 12/12/2023 12:56 PM CDT Temperature 36.4 ??C (97.5 ??F) 06/04/2020 9:22 AM CD T Respiratory Rate - - Oxygen Saturation 97% 12/12/2023 12:56 PM CDT Inhaled Oxygen Concentration - - Weight 44.5 kg (98 lb) 12/12/2023 12:56 PM CDT Height 157.5 cm (5' 2 ) 12/12/2023 12:56 PM CDT Body Mass Index 17.92 12/12/2023 12:56 PM CDT Plan of Treatment Health Maintenance Due Date Last Done Comments Depression Screening 1950 Fall Risk Assessment 1950 Hepatitis C Screening 1950 Osteoporosis Screening-Bone Density Scan 1950 DTaP/Tdap/Td Vaccine (1 - Tdap) 01/08/1959 Hepatitis B Screening 01/08/1966 Well Visit 65+ 01/08/2013 Zoster Vaccine (1 of 2) 02/01/2016 12/07/2015 Influenza Vaccine (#1) 2023 9, 12/03/2017, 12/11/2016, Additional history exists Pneumococcal vaccine 65+ Completed 015, 01/12/2015, 01/11/2002 Insurance [facility] MEDICARE MEDICARE AAR Care Teams School Secretary Relationship Specialty Start Date End Date Jae oFrrest DO [address] [facility] [address] [place] [address] PCP - General Internal Medicine 12/12/23
--- OUTSIDE RECORDS SUMMARY | 2024-04-09 11:48 | XMS_ITS | Encounter Summary ---
Author Organization [facility] [employer] [facility] Address [address] [place] [address] Care Team Providers Care Upsetter Helper Name Role Phone Chuckie Aiken DO Primary Care Provider [phone] Encounter Details Date Type Department Care Team (Late Contact Info) Description 04/08/2024 Orders Only [facility] Oncology and Hematology - Mikie [address] [facility] [address] [place] [address] Noe Alatorre MD [address] [facility] [address] [place] [address] Social History Tobacco Use Types Packs/Day Years Used Date Smoking Tobacco: Former Cigarettes 0.5 50 Q uit: 01/25/2024 Passive Smoke Exposure: Past Smokeless Tobacco: Never Alcohol Use Standard Drinks/Week Comments Never 0 (1 standard drink = 0.6 oz pur e alcohol) Food Insecurity Answer Date Recorded Patient needs follow up regarding: Not on file 04/30/2023 Transportation Needs Answer Date Record ed Patient needs follow up regarding: Not on file 04/30/2023 Housing Stability Answer Date Recorded Patient needs follow up regarding: Not on file 04/30/2023 Utility Needs Answer Date Recorded Patient needs follow up regarding: Not on file 04/30/2023 Comments No Sex and Gender Information Value Date Recorded Sex Assigned at Not on file Legal Sex Female 2:33 PM CDT Gender Identity Not on file Sexual Orientation Not on file documented as of this encounter Plan of Treatment Upcoming Encounters Date Type Department Care Team (Late Contact Info) Description 04/25/2024 9:00 AM CAPITAL EQUIPMENT SPECIALIST Office Visit [facility] Oncology and Hematology - Mikie [address] [facility] [address] [place] [address] Noe Alatorre MD [address] [facility] [address] [place] [address] documented as of this encounter Procedures Procedure Name Priority Date/Time Associated Diagnosis Comments CBC WITH DIFFERENTIAL Routine 04/05/2024 9:10 AM CAPITAL EQUIPMENT SPECIALIST documented in this encounter Results * CBC WITH DIFFERENTIAL (04/05/2024 9:10 AM CAPITAL EQUIPMENT SPECIALIST) Blood us Noe Alatorre MD HEMATOLOGY ORDERABLES Final Res ult documented in this encounter Visit Diagnoses Not on filedocumented in this encounter Care Teams Upsetter Helper Relationship Specialty Start Date End Date Chuckie Aiken DO [address] [facility] [address] [place] [address] PCP - General Internal Medicine 09/09/21 documented as of this encounter
--- OUTSIDE RECORDS SUMMARY | 2024-04-09 11:48 | XMS_ITS | Clinical Summary ---
Author Organization [facility] [employer] [facility] Address [address] [facility] [place] [address] Care Team Providers Care Coffee Grower Name Role Phone Chuckie Aiken Primary Care Provider [phone] Allergies Active Allergy Reactions Criticality Noted Date Comments Amoxicillin Rash Low 05/30/2022 Bacitracin Itching Low 06/04/2020 Cinnamon Rash Low 05/30/2022 Iodine Hives High 06/04/2020 Ipratropium Unknown 09/09/2021 Latex Other (See Comments) High 06/04/2020 Neomycin Sulfate Other (See Comments) Low 06/04/2020 Unknown Nitrofurantoin Unknown 09/09/2021 Shellfish Derived Other (See Comments) High 09/09/2021 Reaction: unknown, Sulfa (Sulfonamide Antibiotics) Unknown 09/09/2021 Unclassified Drug Rash Low 05/30/2022 Needs clothing washed in all free and clear detergent Medications albuterol sulfate 90 mcg/Actuation inhaler USE 2 PUFFS EVERY 4 HOURS NEEDED FOR SHORTNESS OF BREATH OR WHEEZING 1 Active aspirin (ECOTRIN EC) 81 mg Tablet, Delayed Release (E.C.) Take 81 mg by mouth daily. 9 Active buPROPion HCL (WELLBUTRIN XL) 300 mg Extended Release 24 hour tablet Take 150 mg by mouth daily in the morning. 2 Active clonazePAM (KlonoPIN) 0.5 mg Tablet Take 0.5 mg by mouth daily at bedtime. 2 Active fexofenadine (AKBAR) 180 mg tablet Take 180 mg by mouth daily. Active fluticasone propionate (FLONASE) 50 mcg/spray [place], Suspension nasal inhaler Administer 1 [place] in each nostril daily. Active levothyroxine 75 mcg tablet Take 75 mcg by mouth daily. 2 Active omeprazole (PriLOSEC) 20 mg Capsule, Delayed Release(E.C.) Take 20 mg by mouth daily. 2 Active rosuvastatin (CRESTOR) 40 mg tablet daily at bedtime. 2 Active triamcinolone acetonide (KENALOG) 0.1 % Cream Apply to affected area 2 times daily. Active ferrous sulfate 134 mg (27 mg iron) tablet Take 134 mg by mouth. Active naproxen sodium 220 mg tablet Take 220 mg by mouth. Active predniSONE (DELTASONE) 50 mg tabletIndicatio ns:Allergy, initial encounter,Metas tatic breast cancer (CMS/HCC) Take 1 Tablet (50 mg) by mouth daily. 3 Tablet 3 Active Additional Information Patient taking differently:50 mg OralSEE ADMIN INSTRUCTIONS, For tests with iodine, Reported on 05/30/2022 calcium carbonate 500 mg-vitamin D3 5 mcg (200 unit) tablet Take 1 Tablet by mouth daily. Active midodrine (PROAMATINE) 2.5 mg Tablet 3 Active ondansetron (ZOFRAN ODT) 8 mg Tablet, Rapid DissolveIndicat ions:Primary malignant neoplasm of breast with metastasis (CMS/HCC) DISSOLVE 1 TABLET ON TONGUE THEN SWALLOW WITH SALIVA EVERY 8 HOURS NEEDED FOR NAUSEA OR VOMITING 30 Tablet 3 4 Active metoprolol tartrate (LOPRESSOR) 25 mg tablet Take 25 mg by mouth 2 times daily. Active OTHER Caleitriol 1.25mcg 3xs weekly Active palbociclib (Ibrance) 125 mg capsuleIndicati ons:Primary malignant neoplasm of breast with metastasis (CMS/HCC) Take 1 Capsule (125 mg) by mouth daily with lunch for 21 days and then 7 days off. 21 Capsule 3 4 Active anastrozole (ARIMIDEX) 1 mg tablet TAKE 1 TABLET(1 MG) BY MOUTH DAILY 90 Tablet 3 4 Active prochlorperazin e maleate (COMPAZINE) 10 mg tablet TAKE 1 TABLET(10 MG) BY MOUTH EVERY 6 HOURS NEEDED FOR NAUSEA OR VOMITING 20 Tablet 10/29/202 4 Active potassium chloride (KLOR-CON) 10 mEq Extended Release tablet Take 1 Tablet (10 mEq) by mouth 2 times daily with meals. 30 Tablet 4 Active Active Problems Problem Noted Date Diagnosed Date Cancer, metastatic to bone 05/18/2022 Metastatic breast cancer 09/09/2021 Encounters Date Type Department Care Team Description 04/08/2024 Orders Only [facility] Oncology and Hematology - Mikie [address] [place] [id number] Noe Alatorre MD 04/03/2024 External Device Data STL ABSTRACTION Provider, Abstract 04/01/2024 Orders Only [facility] Oncology and Hematology - [place] [address] [place] [phone] Noe Alatorre MD Stage 3b chronic kidney disease ([facility]/HCC) 03/28/2024 External Device Data STL ABSTRACTION Provider, Abstract 03/25/2024 Orders Only [facility] On[facility] and Hematology - [place] [address] [place] [address] Noe Alatorre MD 03/18/2024 Orders Only [facility] On[facility] and Hematology - [place] [address] [place] [address] Noe Alatorre MD Stage 3b chronic kidney disease ([facility]/HCC) 03/15/2024 Orders Only [facility]ology - [place] [address] [place] [address] Noe Alatorre MD 03/04/2024 Orders Only [facility] On[facility] and Hematology - [place] [address] [place] [address] Noe Alatorre MD Stage 3b chronic kidney disease ([facility]/HCC) 03/01/2024 Orders Only [facility] and Hematology - [place] [address] [place] [address] Noe Alatorre MD 02/26/2024 10:15 AM BIOMETRIC FINGERPRINTING TECHNICIAN Office Visit [facility] On[facility] and Hematology [facility] [address] [place] [address] Deon Henson MD Anemia of chronic renal failure, stage 3b (CMS/HCC) (Primary Dx) 02/26/2024 Orders Only [facility] On[facility] and Hematology - Mikie [address] [place] [phone] Noe Alatorre MD 02/22/2024 Orders Only [facility] and Hematology Mik[place] [address] [place] [address] Noe Alatorre MD Other fatigue (Primary Dx) 02/19/2024 Orders Only [facility] [address] [place] [phone] Noe Alatorre MD Stage 3b chronic kidney disease (CMS/HCC) (Primary Dx) 02/15/2024 Telephone [facility] [address] [place] [phone] Noe Alatorre MD Nausea 02/06/2024 Orders Only [facility] [address] [place] [address] Noe Alatorre MD Anemia of chronic renal failure, stage 3b (CMS/HCC) (Primary Dx); Stage 3b chronic kidney disease (CMS/HCC) 01/25/2024 Orders Only [facility] On[facility] and Hematology - [place]ie [address] [place] [address] Scanning, Provider 01/24/2024 8:30 AM BIOMETRIC FINGERPRINTING TECHNICIAN Office Visit [facility] and Hematology [facility] [address] [place] [address] Noe Alatorre MD Primary malignant neoplasm of breast with metastasis (CMS/HCC) (Primary Dx); Stage 3b chronic kidney disease (CMS/HCC); Anemia of chronic renal failure, stage 3b (CMS/HCC) 01/24/2024 Orders Only [facility] On[facility] and Hematology - Mikie [address] [place] [address] Noe Alatorre MD from Last 3 Months Immunizations Immunization Administration Dates Next Due (DAVID) COVID-19 VACCINE - EMERGENCY USE AUTHORIZATION, AD26,COV2S(PF) 0.5 ML IM SUSP 05/08/2020,05/08/2020 (PFIZER FANTASMA)(12 YR UP PRIMA RY SERIES) COVID-19 VACCINE - EMERGENCY USE AUTHORIZATION, MRNA, FANTASMA(PF) 30 MCG/0.3 ML IM SUSP 12/26/2021 (SPIKEVAX) (12 YRS UP PRIMAR Y SERIES) COVID-19 VACCINE - MRNA-1273(PF) 100 MCG/0.5 ML IM SUSP 06/19/2021 Family History Medical History Relation Name Comments Cancer Father Cancer Mother Diabetes Mother Heart Disease Mother Relation Name Status Comments Father Mother Sister Social History Tobacco Use Types Packs/Day Years [...] on file Sexual Orientation Not on file Last Filed Vital Signs Vital Sign Reading Time Taken Comments Blood Pressure 96/57 02/26/2024 9:51 AM BIOMETRIC FINGERPRINTING TECHNICIAN Pulse 57 02/26/2024 9:48 AM BIOMETRIC FINGERPRINTING TECHNICIAN Temperature 36.3 ??C (97.3 ??F) 02/26/2024 9:48 AM CS T Respiratory Rate 18 02/26/2024 9:48 AM BIOMETRIC FINGERPRINTING TECHNICIAN Oxygen Saturation 90% 02/26/2024 9:48 AM BIOMETRIC FINGERPRINTING TECHNICIAN Inhaled Oxygen Concentration - - Weight 39.9 kg (88 lb) 02/26/2024 9:48 AM BIOMETRIC FINGERPRINTING TECHNICIAN Height 157.5 cm (5' 2 ) 09/21/2022 1:05 PM CDT Body Mass Index 16.1 09/21/2022 1:05 PM CDT Plan of Treatment Upcoming Encounters Date Type Department Care Team (Late st Contact Info) Description 04/25/2024 9:00 AM BIOMETRIC FINGERPRINTING TECHNICIAN Office Visit [facility] Oncology and Hematology - [place] [address] [facility] [address] [place] [address] Noe Alatorre MD [address] [facility] [address] [place] [address] Health Maintenance Due Date Last Done Comments DTAP/TDAP/TD VACCINES (1 - Tdap) 01/08/1967 Traditional Medicare (ACO) A nnual Wellness Visit 01/08/1967 OSTEOPOROSIS SCREENING 01/08/2013 PNEUMOCOCCAL VACCINE 65+ YEA RS (3 of 3 - PCV) 01/13/2016 01/12/2015, 01/11/2002 ZOSTER VACCINE (1 of 2) 02/01/2016 12/07/2015 RSV VACCINE (60+ or ) (1 - 1-dose 75+ series) 01/08/2023 INFLUENZA VACCINE (#1) 2023 11/16/2015, 2014 COVID-19 Vaccine (5 - 2023-2 5 season) 2023 12/26/2021, 06/19/2021, 05/08/2020, Additional history exists Medical Devices Implanted Type Area Special Education Educational Assistant Device Identifier Shelf Expiration Date Model / Serial / Lot Cement-T12 Kypho-06/06/2022 Implanted:Qty: 1 on 06/06/2022 by Lucian Plaza MD Cement Spine Thoracic 09/02/2024 CX01A / / [id number] Description:Kyphon Xpede bon e cement implanted in T12 on 06/06/[address] Plaza Cement-L1 Kypho-06/06/2022 Implanted:Qty: 1 on 06/06/2022 by Lucian Plaza MD Cement Spine Lumbar 09/02/2024 CX01A / / [id number] Description:Kyphon Xpede bon e cement implanted in L1 on 06/06/[address] Plaza 2 Cardiac Stents Procedures Procedure Name Priority Date/Time Associated Diagnosis Comments CBC WITH DIFFERENTIAL Routine 04/05/2024 9:10 AM BIOMETRIC FINGERPRINTING TECHNICIAN CBC WITH DIFFERENTIAL Routine 03/22/2024 11:24 AM BIOMETRIC FINGERPRINTING TECHNICIAN CBC WITH DIFFERENTIAL Routine 03/08/2024 12:08 PM BIOMETRIC FINGERPRINTING TECHNICIAN BASIC METABOLIC PANEL Routine 02/26/2024 3:34 PM BIOMETRIC FINGERPRINTING TECHNICIAN COMPREHENSIVE METABOLIC PANEL Routine 02/26/2024 9:42 AM BIOMETRIC FINGERPRINTING TECHNICIAN VITAMIN B12 AND FOLATE Routine 2:50 PM BIOMETRIC FINGERPRINTING TECHNICIAN CBC WITH DIFFERENTIAL Routine 01/22/2024 3:32 PM BIOMETRIC FINGERPRINTING TECHNICIAN BASIC METABOLIC PANEL Routine 01/22/2024 2:16 PM BIOMETRIC FINGERPRINTING TECHNICIAN CANCER ANTIGEN 15-3 Routine 01/22/2024 1 2:41 PM BIOMETRIC FINGERPRINTING TECHNICIAN from Last 3 Months Results * CBC WITH DIFFERENTIAL (04/05/2024 9:10 AM BIOMETRIC FINGERPRINTING TECHNICIAN) Only the most recent of4 resultswithin the time period is included. Blood Noe Alatorre MD HEMATOLOGY ORDERABLES Final Res ult * BASIC METABOLIC PANEL (02/26/2024 3:34 PM BIOMETRIC FINGERPRINTING TECHNICIAN) Only the most recent of2 resultswithin the time period is included. Blood Noe Alatorre MD CHEMISTRY ORDERABLES Final Resu lt * COMPREHENSIVE METABOLIC PANEL (02/26/2024 9:42 AM BIOMETRIC FINGERPRINTING TECHNICIAN) Blood us Noe Alatorre MD CHEMISTRY ORDERABLES Final Resu lt * VITAMIN B12 AND FOLATE (01/23/2024 2:50 PM BIOMETRIC FINGERPRINTING TECHNICIAN) Blood us Provider Scanning CHEMISTRY ORDERABLES Final Res ult * CANCER ANTIGEN 15-3 (01/22/2024 12:41 PM BIOMETRIC FINGERPRINTING TECHNICIAN) Blood Noe Alatorre MD CHEMISTRY ORDERABLES Final Resu lt from Last 3 Months Insurance MEDICARE PART A AND B [facility] [id number] MEDICARE PART A AND B [facility] [id number] [place] [id number] Advance Directives For more information, please contact: [phone] * Full Code (Latest Code Status on File) Date Activated Date Inactivated Comments 06/06/2022 12:45 PM 06/07/2022 12:11 AM Care Teams Coffee Grower Relationship Specialty Start Date End Date Chuckie Aiken DO [address] [facility] [address] [place] [address] PCP - General Internal Medicine 09/09/21
--- OUTSIDE RECORDS SUMMARY | 2024-04-09 11:48 | XMS_ITS | Clinical Summary ---
Author Organization [facility] Address [address] [place] [address]. [place], [place] [address] [place] [address] Care Team Providers Care Vertical Punch Operator Name Role Phone Unavailable Primary Care Provider Unavailabl e Social History Tobacco Use Types Packs/Day Years Used Date Smoking Tobacco: Never Assessed Comments Unknown Sex and Gender Information Value Date Recorded Sex Assigned at Not on file Legal Sex Female 5:09 PM CDT Gender Identity Not on file Sexual Orientation Not on file Plan of Treatment Health Maintenance Due Date Last Done Comments Colorectal Cancer Screening Colonoscopy (10 Years) 1950 Hepatitis C 01/08/1966 DTaP, Tdap and Td Vaccines ( 1 - Tdap) 01/08/1967 Zoster Vaccines (1 of 2) 01/08/1998 Dexa Scan (General) 01/08/2013 Pneumococcal Vaccine: 65+ Ye ars (1 of 1 - PCV) 01/08/2013 RSV Immunization or 60+ Years (1 - 1-dose 75+ series) 01/08/2023 COVID-19 Vaccine ( - 2023-2 5 season) 2023 Influenza Adult (#1) 2023 Meningococcal B Vaccine Aged Out No l onger eligible based on patient's age to complete this topic Meningococcal Vaccine Aged Out No kirby randy eligible based on patient's age to complete this topic RSV Immunizations Under 20 Months Aged Out No longer eligible based on patient's age to complete this topic
--- OUTSIDE RECORDS SUMMARY | 2024-04-09 11:48 | XMS_ITS | Referral Summary ---
Author Organization [facility] [address] 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 angina pectoris History of myocardial infarction 09/18/2015 Overview (06/10/2016): History of myocardial infarction Palpitations 09/18/2015 Overview (06/10/2016): Palpitations Resolved Problems Problem Noted Date Diagnosed Date Resolved Date Dyslipidemia 09/18/2015 03/23/2021 Overview (06/08/2016): Dyslipidemia Social History Tobacco Use Types Packs/Day Years [...] on file Legal Sex Female 2:02 AM BROTH MIXER Gender Identity Not on file Sexual Orientation [...] 12/12/2023 12:56 PM CDT Plan of Treatment Not on file Insurance [facility] MEDICARE MEDICARE [facility] Care Teams Reservoir Engineering Consultant Relationship Specialty Start Date End Date Jae Forrest DO [address] [place] [address] PCP - General Internal Medicine 12/12/23
--- OUTSIDE RECORDS SUMMARY | 2024-04-09 11:48 | XMS_ITS | Encounter Summary ---
Author Organization [facility] Address [address] [place] [address] Care Team Providers Care Construction Framer Name Role Phone Chuckie Aiken DO Primary Care Provider [phone] Encounter Details Date Type Department Care Team (Latest Contact Info) Description 01/06/1998 Outpatient Historical [facility] Gustavo Stevens MD NO ADDRESS ON FILE Follow-up examination following surgery (Primary Dx) Social History Tobacco Use Types Packs/Day Years [...] st Contact Info) Description 04/25/2024 9:00 AM THERMOSCREW OPERATOR Office Visit [facility] Oncology and Hematology - Mikie [address] [facility] [address] [place] [address] Noe Alatorre MD [address] [facility] [address] [place] [address] documented as of this encounter Visit Diagnoses Diagnosis Follow-up examination following surgery- Primary documented in this encounter Care Teams Construction Framer Relationship Specialty Start Date End Date Chuckie Aiken DO [address] [facility] [address] [place] [id number] PCP - General Internal Medicine 09/09/21 documented as of this encounter
[2024-04-09 14:39] LABS: Creatinine Urine 89.4 mg/dL; Total Protein Urine Random 32 mg/dL; Ur Ttl Prot Creatinine Ratio 0.36 mg/mg (0-0.20)
[2024-04-09 15:11] LABS: Parathyroid Intact 48.4 pg/mL (14.5-75.2)
[2024-04-09 15:37] LABS: Albumin Level 4.1 g/dL (3.5-5.1); Anion Gap 11 mmol/L (4-12); Blood Urea Nitrogen 33 mg/dL (7-17); Calcium 9.6 mg/dL (8.4-10.2); Carbon Dioxide 28 mmol/L (22-30); Chloride 98 mmol/L (98-107); Estimated Glomerular Filt Rate 48; Glucose 107 mg/dL (65-110); Phosphorus 3.7 mg/dL (2.5-4.5); Potassium 3.6 mmol/L (3.4-5.0); Sodium 137 mmol/L (137-145)
== END 2024-04-09 11:05 | disposition home or self-care (01) ==
LOC: ANHLAB 11:08
PROVIDERS: Referring Provider Internal Medicine Nephrology; Visit Provider Internal Medicine Nephrology
DX: R53.83 Other fatigue (principal); N18.32 Chronic kidney disease, stage 3b; K21.9 Gastro-esophageal reflux disease without esophagitis
CPT/HCPCS: 36415; 80069; 82570; 83970; 84156; 85027

== ENCOUNTER 2024-04-22 11:03 | Outpatient (CLI) | payer MEDICARE, SELFPAY ==
[2024-04-22 12:02] LABS: Basophils Absolute Auto 0.1 K/mm3 (0.0-0.1); Basophils Percent Auto 0.9 % (0.2-1.2); Eosinophils Absolute Auto 0.4 K/mm3 (0-0.3); Eosinophils Percent Auto 5.9 % (0-4.4); Hematocrit 39.2 % (37.0-47.0); Hemoglobin 12.1 g/dL (12.0-15.0); Immature Granulocyte Absolute 0.02 K/mm3 (0.00-0.031); Immature Granulocyte Percent A 0.3 % (0-0.5); Lymphocytes Absolute Auto 1.02 K/mm3 (0.9-3.2); Lymphocytes Percent Auto 14.7 % (18.3-44.2); Mean Corpuscular HGB Conc 30.9 g/dl (32-36); Mean Corpuscular Hemoglobin 31.3 pg (26-34); Mean Corpuscular Volume 101.3 fl (80-100); Mean Platelet Volume 10.2 fl (7.4-10.4); Monocytes Absolute Auto 0.5 K/mm3 (0.1-0.6); Monocytes Percent Auto 6.5 % (2.6-8.5); Neutrophils Percent Auto 71.7 % (45.5-73.1); Platelet Count Result 288 k/mm3 (150-375); Red Blood Count 3.87 M/mm3 (4.2-5.4); Red Cell Distribution Width 13.5 % (11.5-14.5); White Blood Count 6.9 K/mm3 (4.5-10.0)
[2024-04-22 12:15] LABS: Iron 71 ug/dL (37-170)
[2024-04-22 12:16] LABS: Anion Gap 8 mmol/L (4-12); Blood Urea Nitrogen 29 mg/dL (7-17); Carbon Dioxide 30 mmol/L (22-30); Chloride 100 mmol/L (98-107); Estimated Glomerular Filt Rate 42; Glucose 133 mg/dL (65-110); Potassium 4.4 mmol/L (3.4-5.0); Sodium 138 mmol/L (137-145)
[2024-04-22 12:24] LABS: Percent Iron Saturation 24 % (20-50)
[2024-04-22 13:21] LABS: Folic Acid 8.5 ng/mL (2.76->20)
--- OUTSIDE RECORDS SUMMARY | 2024-04-22 14:09 | XMS_ITS | Patient Health Record ---
Author Organization [facility] Address [address] [facility] [address] [place] [address] Care Team Providers Care Natural Sciences Professor Name Role Phone Maria Luisa Billingsley Primary Care Provider [phone] Allergies Allergen (clinical drug ingredient) Drug/Non Drug Allergy documented on EMR Reaction Allergy Type Onset Date Status Substance with sulfonamide structure and antibacterial mechanism of action (substance) sulfa (uncoded) Unknown Allergy Active Combivent Unknown Drug Allergy Active iodine Unknown Drug Allergy Active nitrofurantoin, macrocrystals / nitrofurantoin, monohydrate Macrobid Unknown Drug Allergy Active Reason For Referral No Information Medications Medication SIG (Take, Route, Frequency, Duration) Notes Start Date End Date Status Levothyroxine 75 mcg (0.075 mg) 1 tab(s) orally once a day *Reorder from [employer] for eRx and Interaction Alerts* Active Zakiya 24 Hour Allergy 180 mg 1 tab(s) orally once a day *Reorder from [employer] [place] for eRx and Interaction Alerts* Active Simvastatin 40 mg 1 tab(s) orally once a day (at bedtime) Active Spiriva Respimat 2.5mcg/actuation as directed inhaled as directed *Pick strength-form from [employer] for eRX* 05/22/2017 Not-Taking clonazePAM 0.5 mg 1 tab(s) orally once a day Active Aspirin Enteric Coated 325 mg 1 tab(s) orally once a day *Reorder from [employer] [place] for eRx and Interaction Alerts* Active Omeprazole 20 mg 1 cap(s) orally once a day *Pick strength-form from [employer] [place] for eRX* Active buPROPion 300 mg/24 hours 1 tab(s) orally once a day *Reorder from [employer] for eRx and Interaction Alerts* Active Immunizations Vaccine Route Administration Date Status Comme [facility] Influenza (split), 3 yrs and above Unknown 01/04/2015 Administered Immunization Giv en by from source eCW:: [place] Influenza (split), 3 yrs and above Unknown 11/16/2015 Administered Immunization Giv en by from source eCW:: Ill. Pneumococcal polysaccharide PPV23 Unknown 01/11/2002 Administered Immunizatio n Given by from source eCW:: [place] Pneumococcal polysaccharide PPV23 Unknown 01/12/2015 Administered Immunizatio n Given by from source eCW:: Ill. Zoster Unknown 12/07/2015 Administered Immunization Given by from source eCW:: Ill. Problems Problem Type SNOMED Code ICD Code Onset Dates Problem Status W/U Status Risk Notes Problem Hypothyroidism (09897473) Other specified hypothyroidism (E03.8) Active confirmed Problem Tobacco user (770700282) Nicotine dependence, unspecified, uncomplicated (F17.200) Active confirmed Problem Dysthymia (31896988) Dysthymic disorder (F34.1) Active confirmed Problem Chronic ischemic heart disease (190326959) Chronic ischemic heart disease, unspecified (I25.9) Active confirmed Problem Acute exacerbation of chronic obstructive airways disease (757516320) Chronic obstructive pulmonary disease with (acute) exacerbation (J44.1) Active confirmed Problem Chronic obstructive pulmonary disease (48727440) Chronic obstructive pulmonary disease, unspecified (J44.9) Active confirmed Problem Osteoarthritis of first carpometacarpal joint (39409508) Osteoarthritis of first carpometacarpal joint, unspecified (M18.9) Active confirmed Problem Tobacco use (048063199) Tobacco use (Z72.0) Active confirmed Problem Hyperlipidemia (46148637) Other hyperlipidemia (E78.4) Active confirmed Problem Essential hypertension (84262514) Essential (primary) hypertension (I10) Active confirmed Problem Allergic rhinitis (74637248) Allergic rhinitis (J30.9) Active confirmed Plan Of Treatment Pending Test Test Name Order Date Influenza Screen 04/19/2018 Medications Administered Medication Instructions Date of Administration Dosage Notes Methylprednisolone 40mg 05/18/2017 40 mg Methylprednisolone 80mg 04/19/2018 125 mg Medical (General) History Medical History History ICD Code hyperlipidemia COPD-spirometry up 2014 CAD - 2 stents (2001 and 2003- [facility])- [place] 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
--- OUTSIDE RECORDS SUMMARY | 2024-04-22 14:09 | XMS_ITS | Clinical Summary ---
Author Organization [facility] Address [address] [place] [address] Care Team Providers Care Junior Project Coordinator Name Role Phone Unavailable Primary Care Provider [...] - 1-dose 75+ series) 01/08/2023 COVID-19 Vaccine (2023-2 5 season) 2023 Influenza Adult (#1) 2023 [...]
--- OUTSIDE RECORDS SUMMARY | 2024-04-22 14:09 | XMS_ITS | Encounter Summary ---
Author Organization [facility] Address [address] [place] [address] Care Team Providers Care Bird Tender Name Role Phone Chuckie Aiken DO Primary Care Provider [phone] Encounter Details Date Type Department Care Team (Late Contact Info) Description 04/22/2024 Orders Only [facility] Oncology and Hematology - Mikie [address] [facility] 200 [place] [address] Noe Alatorre MD [address] [facility] [address] [place] [address] Social History Tobacco Use Types [...] (Late Contact Info) Description 04/25/2024 9:00 AM MANAGER SURGICAL Office Visit [facility] Oncology and Hematology - Mikie [address] [facility] 200 [place] [address] Noe Alatorre MD [address] [facility] [address] [place] [address] documented as of this encounter Procedures Procedure Name Priority Date/Time Associated Diagnosis Comments CBC WITH DIFFERENTIAL Routine 04/19/2024 11:10 AM MANAGER SURGICAL CBC WITH DIFFERENTIAL Routine 04/19/2024 11:09 AM MANAGER SURGICAL CBC WITH DIFFERENTIAL Routine 04/19/2024 11:09 AM MANAGER SURGICAL documented in this encounter Results * CBC WITH DIFFERENTIAL (04/19/2024 11:10 AM MANAGER SURGICAL) Blood us Noe Alatorre MD HEMATOLOGY ORDERABLES Final Res ult * CBC WITH DIFFERENTIAL (04/19/2024 11:09 AM MANAGER SURGICAL) Blood us Noe Alatorre MD HEMATOLOGY ORDERABLES Final Res ult * CBC WITH DIFFERENTIAL (04/19/2024 11:09 AM MANAGER SURGICAL) Blood us Noe Alatorre MD HEMATOLOGY ORDERABLES Final Res ult documented in this encounter Visit Diagnoses Not on filedocumented in this encounter Care Teams Bird Tender Relationship Specialty Start Date End Date Chuckie Aiken DO [address] [facility] 120 [place] [address] PCP - General Internal Medicine 09/09/21 documented as of this encounter
--- OUTSIDE RECORDS SUMMARY | 2024-04-22 14:09 | XMS_ITS | Encounter Summary ---
Author Organization [facility] Address [address] [place] [address] Care Team Providers Care Director Information Name Role Phone Chuckie Aiken DO Primary Care Provider [phone] Encounter Details Date Type Department Care Team (Late Contact Info) Description 04/22/[address] [facility] Oncology and Hematology - Mikie [address] [facility] 200 [place] [address] Noe Alatorre MD [address] [facility] [address] [place] [address] Social History Tobacco Use Types [...] (Late Contact Info) Description 04/25/2024 9:00 AM MIDDLE SCHOOL PROFESSIONAL Office Visit [facility] Oncology and Hematology - Mikie [address] [facility] 200 [place] [address] Noe Alatorre MD [address] [facility] [address] [place] [address] documented as of this encounter Visit Diagnoses Not on filedocumented in this encounter Care Teams Director Information Relationship Specialty Start Date End Date Chuckie Aiken DO [address] [facility] [address] [place] [address] PCP - General Internal Medicine 09/09/21 documented as of this encounter
--- OUTSIDE RECORDS SUMMARY | 2024-04-22 14:09 | XMS_ITS | Clinical Summary ---
Author Organization [facility] Address [address] [facility] [place] [address] Care Team Providers Care Guide Dog Instructor Name Role Phone Chuckie Aiken Primary Care Provider Allergies Active Allergy Reactions Criticality Noted Date [...] daily. Active fluticasone propionate (FLONASE) 50 mcg/spray [place], Suspension nasal inhaler Administer 1 [place] in each nostril daily. Active levothyroxine 75 [...] Encounters Date Type Department Care Team Description 04/22/2024 Orders Only [facility] Oncology and Hematology - Mikie [address] [place] [id number] Noe Alatorre MD 04/22/2024 Abstract [facility] Oncology and Hematology - Mikie [address] [place] [address] Noe Alatorre MD 04/15/2024 Orders Only [facility] Oncology and Hematology - Mikie [address] [place] [address] Noe Alatorre MD Stage 3b chronic kidney disease (CMS/HCC) 04/08/2024 Orders Only [facility] Oncology and Hematology - Mikie [address] [place] [address] Noe Alatorre MD 04/03/2024 External Device Data STL ABSTRACTION Provider, Abstract 04/01/2024 Orders Only [facility] Oncology and Hematology - Mikie [address] [place] [address] Noe Alatorre MD Stage 3b chronic kidney disease (CMS/HCC) 03/28/2024 External Device Data STL ABSTRACTION Provider, Abstract 03/25/2024 Orders Only [facility] Oncology and Hematology - Mikie [address] [place] [address] Noe Alatorre MD 03/18/2024 Orders Only [facility] Oncology and Hematology - Mikie [address] [place] [address] Noe Alatorre MD Stage 3b chronic kidney disease (CMS/HCC) 03/15/2024 Orders Only [facility] Oncology and Hematology - Mikie [address] [place] [address] Noe Alatorre MD 03/04/2024 Orders Only [facility] Oncology and Hematology - Mikie [address] Noe Alatorre MD Stage 3b chronic kidney disease (CMS/HCC) 03/01/2024 Orders Only [facility] Oncology and Hematology - Mikie [address] Noe Alatorre MD 02/26/2024 10:15 AM ANALYTICAL RESEARCH PROGRAM MANAGER Office Visit [facility] Oncology and Hematology - Mikie [address] Deon Henson MD Anemia of chronic renal failure, stage 3b (CMS/HCC) (Primary Dx) 02/26/2024 Orders Only [facility] Oncology and Hematology - Mikie [address] Noe Alatorre MD 02/22/2024 Orders Only [facility] Oncology and Hematology - Mikie [address] Noe Alatorre MD Other fatigue (Primary Dx) 02/19/2024 Orders Only [facility] Oncology and Hematology - Mikie [address] Noe Alatorre MD Stage 3b chronic kidney disease (CMS/HCC) (Primary Dx) 02/15/2024 Telephone [facility] Oncology and Hematology - Mikie [address] Noe Alatorre MD [facility] 02/06/2024 Orders Only [facility] Oncology and Hematology - Mikie [address] [place] [address] Noe Alatorre MD Anemia of chronic renal failure, stage 3b (CMS/HCC) (Primary Dx); Stage 3b chronic kidney disease (CMS/HCC) 01/25/2024 Orders Only [facility] Oncology and Hematology [place] [address] [place] [address] Scanning, Provider 01/24/2024 8:30 AM ANALYTICAL RESEARCH PROGRAM MANAGER Office Visit [facility] Oncology [facility] Hematology [place] [address] [place] [address] Noe Alatorre MD Primary malignant neoplasm of breast with metastasis (CMS/HCC) (Primary Dx); Stage 3b chronic kidney disease (CMS/HCC); Anemia of chronic renal failure, stage 3b (CMS/HCC) 01/24/2024 Orders Only [facility] Oncology and Hematology [place] [address] [place] [address] Noe Alatorre MD from Last 3 Months [...] Comments Blood Pressure 96/57 02/26/2024 9:51 AM ANALYTICAL RESEARCH PROGRAM MANAGER Pulse 57 02/26/2024 9:48 AM ANALYTICAL RESEARCH PROGRAM MANAGER Temperature 36.3 C (97.3 F) 02/26/2024 9:48 AM ANALYTICAL RESEARCH PROGRAM MANAGER Respiratory Rate 18 02/26/2024 9:48 AM ANALYTICAL RESEARCH PROGRAM MANAGER Oxygen Saturation 90% 02/26/2024 9:48 AM ANALYTICAL RESEARCH PROGRAM MANAGER Inhaled Oxygen Concentration - - Weight 39.9 kg (88 lb) 02/26/2024 9:48 AM ANALYTICAL RESEARCH PROGRAM MANAGER Height 157.5 cm (5' 2 ) 09/21/2022 1:05 PM CDT Body Mass Index 16.1 09/21/2022 1:05 PM CDT Plan of Treatment Upcoming Encounters Date Type Department Care Team (Late st Contact Info) Description 04/25/2024 9:00 AM ANALYTICAL RESEARCH PROGRAM MANAGER Office Visit [facility] Oncology and Hematology - Mikie [address] [facility] [address] [place] [address] Noe Alatorre MD [address] [facility] [address] [place] [address] Health Maintenance Due Date Last [...] history exists Medical Devices Implanted Type Area Nuclear Control Operator Device Identifier Shelf Expiration Date Model / Serial / Lot Cement-T12 Kypho-06/06/2022 Implanted:Qty: 1 on 06/06/2022 by Lucian Plaza MD Cement Spine Thoracic 09/02/2024 CX01A / / [id number] Description:Kyphon Xpede bon e cement implanted in T12 on 06/06/[address] Plaza Cement-L1 Kypho-06/06/2022 Implanted:Qty: 1 on 06/06/2022 by Lucian Plaza MD Cement Spine Lumbar 09/02/2024 CX01A / / [id number] Description:Kyphon Xpede bon e cement implanted in L1 on 06/06/[address] Plaza 2 Cardiac Stents Procedures Procedure Name Priority Date/Time Associated Diagnosis Comments CBC WITH DIFFERENTIAL Routine 04/19/2024 11:10 AM ANALYTICAL RESEARCH PROGRAM MANAGER CBC WITH DIFFERENTIAL Routine 04/19/2024 11:09 AM ANALYTICAL RESEARCH PROGRAM MANAGER CBC WITH DIFFERENTIAL Routine 04/19/2024 11:09 AM ANALYTICAL RESEARCH PROGRAM MANAGER CBC WITH DIFFERENTIAL Routine 04/05/2024 9:10 AM ANALYTICAL RESEARCH PROGRAM MANAGER CBC WITH DIFFERENTIAL Routine 03/22/2024 11:24 AM ANALYTICAL RESEARCH PROGRAM MANAGER CBC WITH DIFFERENTIAL Routine 03/08/2024 12:08 PM ANALYTICAL RESEARCH PROGRAM MANAGER BASIC METABOLIC PANEL Routine 02/26/2024 3:34 PM ANALYTICAL RESEARCH PROGRAM MANAGER COMPREHENSIVE METABOLIC PANEL Routine 02/26/2024 9:42 AM ANALYTICAL RESEARCH PROGRAM MANAGER VITAMIN B12 AND FOLATE Routine 2:50 PM ANALYTICAL RESEARCH PROGRAM MANAGER CBC WITH DIFFERENTIAL Routine 01/22/2024 3:32 PM ANALYTICAL RESEARCH PROGRAM MANAGER BASIC METABOLIC PANEL Routine 01/22/2024 2:16 PM ANALYTICAL RESEARCH PROGRAM MANAGER CANCER ANTIGEN 15-3 Routine 01/22/2024 1 2:41 PM ANALYTICAL RESEARCH PROGRAM MANAGER from Last 3 Months Results * CBC WITH DIFFERENTIAL (04/19/2024 11:10 AM ANALYTICAL RESEARCH PROGRAM MANAGER) Only the most recent of7 resultswithin the time period is included. Blood us Noe Alatorre MD HEMATOLOGY ORDERABLES Final Res ult * BASIC METABOLIC PANEL (02/26/2024 3:34 PM ANALYTICAL RESEARCH PROGRAM MANAGER) Only the most recent of2 resultswithin the time period is included. Blood Noe Alatorre MD CHEMISTRY ORDERABLES Final Resu lt * COMPREHENSIVE METABOLIC PANEL (02/26/2024 9:42 AM ANALYTICAL RESEARCH PROGRAM MANAGER) Blood Noe Alatorre MD CHEMISTRY ORDERABLES Final Resu lt * VITAMIN B12 AND FOLATE (01/23/2024 2:50 PM ANALYTICAL RESEARCH PROGRAM MANAGER) Blood Provider Scanning CHEMISTRY ORDERABLES Final Res ult * CANCER ANTIGEN 15-3 (01/22/2024 12:41 PM ANALYTICAL RESEARCH PROGRAM MANAGER) Blood Noe Alatorre MD CHEMISTRY ORDERABLES Final Resu lt from Last 3 Months Insurance MEDICARE PART A AND B [facility] [id number] MEDICARE PART A AND B [facility] [id number] Advance Directives For more information, please contact: [phone] * Full Code (Latest Code Status on File) Date Activated Date Inactivated Comments 06/06/2022 12:45 PM 06/07/2022 12:11 AM Care Teams Guide Dog Instructor Relationship Specialty Start Date End Date Chuckie Aiken DO [address] [facility] [address] [place] [address] PCP - General Internal Medicine 09/09/21
--- OUTSIDE RECORDS SUMMARY | 2024-04-22 14:09 | XMS_ITS | Referral Summary ---
Author Organization [facility] [address] [facility] 162 Address [address] [place] [address] Care Team Providers Care Marine Pilot Name Role Phone Jae Forrest DO Primary Care Provider [phone] Allergies Active Allergy Reactions Criticality Noted Date [...] 40 mg tabletIndications: Coronary artery disease involving [place] coronary artery of [place] heart without angina pectoris Take 1 tablet [...] Tobacco abuse Coronary artery disease invo lving [place] coronary artery of [place] heart without angina pectoris 09/18/2015 Overview (06/09/2016): Coronary artery disease involving [place] coronary artery of [place] heart without angina pectoris History of myocardial [...] on file Legal Sex Female 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 Gender Identity Not on file Sexual Orientation Not on file Last Filed Vital Signs Vital Sign Reading Time Taken Comments Blood Pressure 132/54 12/12/2023 12:56 PM CDT Pulse 71 12/12/2023 12:56 PM CDT Temperature 36.4 C (97.5 F) 06/04/2020 9:22 AM CDT Respiratory Rate - - Oxygen Saturation 97% 12/12/2023 12:56 PM CDT Inhaled Oxygen Concentration - - Weight 44.5 kg (98 lb) 12/12/2023 12:56 PM CDT Height 157.5 cm (5' 2 ) 12/12/2023 12:56 PM CDT Body Mass Index 17.92 12/12/2023 12:56 PM CDT Plan of Treatment Not on file Insurance [facility] MEDICARE MEDICARE [facility] Care Teams Marine Pilot Relationship Specialty Start Date End Date Jae Forrest DO [address] [id number] PCP - General Internal Medicine 12/12/23
--- OUTSIDE RECORDS SUMMARY | 2024-04-22 14:09 | XMS_ITS | Clinical Summary ---
Author Organization [facility] [address] [facility] [address] Address [address] [place] [address] Care Team Providers Care Director Communications Name Role Phone Jae Forrest DO Primary Care Provider [phone] Allergies Active Allergy Reactions Criticality Noted Date [...] 40 mg tabletIndications: Coronary artery disease involving [place] coronary artery of [place] heart without angina pectoris Take 1 tablet [...] Tobacco abuse Coronary artery disease invo lving [place] coronary artery of [place] heart without angina pectoris 09/18/2015 Overview (06/09/2016): Coronary artery disease involving [place] coronary artery of [place] heart without angina pectoris History of myocardial [...] on file Legal Sex Female 2:02 AM NEGATIVE STRIPPER Gender Identity Not on file Sexual Orientation [...] vaccine 65+ Completed 015, 01/12/2015, 01/11/2002 Insurance [facility] MEDICARE MEDICARE [facility] Care Teams Director Communications Relationship Specialty Start Date End Date Jae Forrest DO [address] [facility] 21 [place] [address] PCP - General Internal Medicine 12/12/23
--- OUTSIDE RECORDS SUMMARY | 2024-04-22 14:10 | XMS_ITS | Encounter Summary ---
Author Organization [facility] Address [address] [place] [address] Care Team Providers Care Instructional Systems Specialist Name Role Phone Chuckie Aiken DO Primary Care Provider [phone] Encounter Details Date Type Department Care Team [...] st Contact Info) Description 04/25/2024 9:00 AM COMMUNICATIONS SCIENTIST Office Visit [facility] Oncology and Hematology - Mikie [address] [facility] 200 [place] [address] Noe Alatorre MD [address] [facility] [address] [place] [address] documented as of this encounter Visit Diagnoses Diagnosis Follow-up examination following surgery- Primary documented in this encounter Care Teams Instructional Systems Specialist Relationship Specialty Start Date End Date Chuckie Aiken DO [address] [facility] 120 [place] [address] PCP - General Internal Medicine 09/09/21 documented as of this encounter
[2024-04-23 07:38] LABS: CA 15-3 9 U/mL (<32)
[2024-04-24 12:33] LABS: Erythropoietin (EPO) 17.1 mIU/mL (2.6-18.5)
== END 2024-04-22 11:04 | disposition home or self-care (01) ==
LOC: ANHLAB 11:06
PROVIDERS: Visit Provider Internal Medicine Medical Oncology
DX: N18.32 Chronic kidney disease, stage 3b (principal); D63.1 Anemia in chronic kidney disease
CPT/HCPCS: 36415; 80048; 82607; 82668; 82728; 82746; 83540; 83550; 85025; 86300; 99212; G0463

== ENCOUNTER 2024-05-21 07:43 | Outpatient (CLI) | payer MEDICARE, SELFPAY ==
--- OUTSIDE RECORDS SUMMARY | 2024-05-21 07:47 | XMS_ITS | Referral Summary ---
Author Organization [facility] [address] [facility] [address] Address [address] [place] [address] Care Team Providers Care Arbitrator Name Role Phone Jae Forrest DO Primary Care Provider [phone] Allergies Active Allergy Reactions Criticality Noted Date [...] 40 mg tabletIndications: Coronary artery disease involving [place] coronary artery of [place] heart without angina pectoris Take 1 tablet [...] Tobacco abuse Coronary artery disease invo lving [place] coronary artery of [place] heart without angina pectoris 09/18/2015 Overview (06/09/2016): Coronary artery disease involving [place] coronary artery of [place] heart without angina pectoris History of myocardial [...] on file 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
--- OUTSIDE RECORDS SUMMARY | 2024-05-21 07:47 | XMS_ITS | Clinical Summary ---
Author Organization [facility] [address] [facility] [address] Address [address] [place] [address] Care Team Providers Care Cabinet And Trim Installer Name Role Phone Jae Forrest DO Primary Care Provider [phone] Allergies Active Allergy Reactions Criticality Noted Date [...] 40 mg tabletIndications: Coronary artery disease involving [place] coronary artery of [place] heart without angina pectoris Take 1 tablet [...] Tobacco abuse Coronary artery disease invo lving [place] coronary artery of [place] heart without angina pectoris 09/18/2015 Overview (06/09/2016): Coronary artery disease involving [place] coronary artery of [place] heart without angina pectoris History of myocardial [...] on file 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
--- OUTSIDE RECORDS SUMMARY | 2024-05-21 07:48 | XMS_ITS | Clinical Summary ---
Author Organization [facility] Address [address] [place] [address] Care Team Providers Care Circulation Man Name Role Phone Unavailable Primary Care Provider [...]
--- OUTSIDE RECORDS SUMMARY | 2024-05-21 07:48 | XMS_ITS | Patient Health Record ---
Author Organization [facility] Address [address] [facility] [address] [place] [address] Care Team Providers Care Rand Butting Machine Operator Name Role Phone Maria Luisa Billingsley Primary Care Provider [phone] Allergies Allergen (clinical drug ingredient) Drug/Non Drug [...] tab(s) orally once a day *Reorder from [employer] for eRx and Interaction Alerts* Active Zakiya 24 Hour Allergy 180 mg 1 tab(s) orally once a day *Reorder from [employer] for eRx and Interaction Alerts* Active Simvastatin 40 mg 1 tab(s) orally once a day (at bedtime) Active Spiriva Respimat 2.5mcg/actuation as directed inhaled as directed *Pick strength-form from [employer] for eRX* 05/22/2017 Not-Taking clonazePAM 0.5 mg 1 tab(s) orally once a day Active Aspirin Enteric Coated 325 mg 1 tab(s) orally once a day *Reorder from [employer] for eRx and Interaction Alerts* Active Omeprazole 20 mg 1 cap(s) orally once a day *Pick strength-form from [employer] for eRX* Active buPROPion 300 mg/24 hours 1 tab(s) orally once a day *Reorder from [employer] for eRx and Interaction Alerts* Active Immunizations Vaccine Route Administration Date Status Comme [facility] Influenza (split), 3 yrs and above Unknown 01/04/2015 Administered Immunization Giv en by from source eCW:: González Influenza (split), 3 yrs and above Unknown 11/16/2015 Administered Immunization Giv en by from source eCW:: Ill. Pneumococcal polysaccharide PPV23 Unknown 01/11/2002 Administered Immunizatio n Given by from source eCW:: [place] Pneumococcal polysaccharide PPV23 Unknown 01/12/2015 Administered Immunizatio n Given by from source eCW:: Ill. Zoster Unknown 12/07/2015 Administered Immunization Given by from source eCW:: Ill. Problems Problem Type SNOMED Code ICD Code Onset Dates Problem Status W/U Status Risk Notes Problem Hypothyroidism (44930925) Other specified hypothyroidism (E03.8) Active confirmed Problem Tobacco user (824148917) Nicotine dependence, unspecified, uncomplicated (F17.200) Active confirmed Problem Dysthymia (76412202) Dysthymic disorder (F34.1) Active confirmed Problem Chronic ischemic heart disease (778495816) Chronic ischemic heart disease, unspecified (I25.9) Active confirmed Problem Acute exacerbation of chronic obstructive airways disease (823330059) Chronic obstructive pulmonary disease with (acute) exacerbation (J44.1) Active confirmed Problem Chronic obstructive pulmonary disease (25385335) Chronic obstructive pulmonary disease, unspecified (J44.9) Active confirmed Problem Osteoarthritis of first carpometacarpal joint (43259064) Osteoarthritis of first carpometacarpal joint, unspecified (M18.9) Active confirmed Problem Tobacco use (517841135) Tobacco use (Z72.0) Active confirmed Problem Hyperlipidemia (59446042) Other hyperlipidemia (E78.4) Active confirmed Problem Essential hypertension (36729414) Essential (primary) hypertension (I10) Active confirmed Problem Allergic rhinitis (06824634) Allergic rhinitis (J30.9) Active confirmed Plan Of Treatment No Information Medications Administered Medication Instructions Date of Administration Dosage Notes Methylprednisolone 40mg 05/18/2017 40 mg Methylprednisolone 80mg 04/19/2018 125 mg Medical (General) History Medical History History ICD Code hyperlipidemia COPD-spirometry up 2014 CAD - 2 stents (2001 and 2003- [facility])- [place] 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
--- OUTSIDE RECORDS SUMMARY | 2024-05-21 07:48 | XMS_ITS | Encounter Summary ---
Author Organization [facility] Address [address] [place] [address] Care Team Providers Care Boiler House Inspector Name Role Phone Chuckie Aiken DO Primary Care Provider [phone] Encounter Details Date Type Department Care Team [...] Care Team (Late st Contact Info) Description 06/28/2024 9:30 AM CDT Office Visit [facility] Oncology and Hematology - Mikie [address] [place] [address] Keyana Mckinney MD [address] [place] [address] documented as of this encounter Visit Diagnoses Diagnosis Follow-up examination following surgery- Primary documented in this encounter Care Teams Boiler House Inspector Relationship Specialty Start Date End Date Chuckie Aiken DO [address] [place] [address] PCP - General Internal Medicine 09/09/21 documented as of this encounter
--- OUTSIDE RECORDS SUMMARY | 2024-05-21 07:48 | XMS_ITS | Clinical Summary ---
Author Organization [facility] Address [address] [place] [address] Care Team Providers Care Weather Stripper Name Role Phone Chuckie Aiken Primary Care Provider [phone] Allergies Active Allergy Reactions Criticality Noted Date [...] daily. Active fluticasone propionate (FLONASE) 50 mcg/spray [place], Suspension nasal inhaler Administer 1 [place] in each nostril daily. Active levothyroxine 75 [...] Encounters Date Type Department Care Team Description 05/13/2024 Orders Only [facility] Oncology and Hematology - [place] [place] [address] Noe Alatorre MD Stage 3b chronic kidney disease ([facility]/HCC) 04/29/2024 Orders Only [facility] Oncology and Hematology - [address] [place] [address] Noe Alatorre MD Stage 3b chronic kidney disease ([facility]/HCC) 04/26/2024 10:45 AM COMMODITY SPECIALIST Office Visit [facility] Oncology and Hematology - [place] [address] [place] [address] Noe Alatorre MD Primary malignant neoplasm of breast with metastasis ([facility]/HCC) (Primary Dx) 04/24/2024 External Device Data STL ABSTRACTION Provider, Abstract 04/22/2024 Orders Only [facility] Oncology and Hematology [facility] [address] [place] [address] Noe Alatorre MD 04/22/2024 Abstract [facility] Oncology and Hematology [facility] [address] [place] [address] Noe Alatorre MD 04/15/2024 Orders Only [facility] Oncology and Hematology - [place] [address] [place] [address] Noe Alatorre MD Stage 3b chronic kidney disease ([facility]/HCC) 04/08/2024 Orders Only [facility] Oncology and Hematology - [place] [address] [place] [address] Noe Alatorre MD 04/03/2024 External Device Data STL ABSTRACTION Provider, Abstract 04/01/2024 Orders Only [facility] Oncology and Hematology - [place] [id number] Noe Alatorre MD Stage 3b chronic kidney disease (CMS/HCC) 03/28/2024 External Device Data STL ABSTRACTION Provider, Abstract 03/25/2024 Orders Only [facility] Oncology and Hematology - [place] [id number] Noe Alatorre MD 03/18/2024 Orders Only [facility] Oncology and Hematology - [place] [id number] Noe Alatorre MD Stage 3b chronic kidney disease (CMS/HCC) 03/15/2024 Orders Only [facility] Oncology and Hematology - [place] [id number] Noe Alatorre MD 03/04/2024 Orders Only [facility] Oncology and Hematology - [place] [id number] Noe Alatorre MD Stage 3b chronic kidney disease (CMS/HCC) 03/01/2024 Orders Only [facility] Oncology and Hematology - [place] [address] [place] [id number] Noe Alatorre MD 02/26/2024 10:15 AM COMMODITY SPECIALIST Office Visit [facility] Oncology and Hematology - [place] [address] [place] [id number] Deon Henson MD Anemia of chronic renal failure, stage 3b (CMS/HCC) (Primary Dx) 02/26/2024 Orders Only [facility] Oncology and Hematology - [place] [address] [place] [id number] Noe Alatorre MD 02/22/2024 Orders Only [facility] Oncology and Hematology - [place] [address] [place] [address] Noe Alatorre MD Other fatigue (Primary Dx) from Last 3 Months Immunizations Immunization Administration [...] Passive Smoke Exposure: Past Smokeless Tobacco: Never Tobacco Cessation:Counseling Given: Not Answered Alcohol Use Standard Drinks/Week Comments Never 0 [...] Sign Reading Time Taken Comments Blood Pressure 134/80 04/26/2024 10:46 AM COMMODITY SPECIALIST ma nual Pulse 85 04/26/2024 10:42 AM COMMODITY SPECIALIST Temperature 36.4 C (97.6 F) 04/26/2024 10:42 AM COMMODITY SPECIALIST Respiratory Rate 17 04/26/2024 10:42 AM COMMODITY SPECIALIST Oxygen Saturation 94% 04/26/2024 10:42 AM COMMODITY SPECIALIST Inhaled Oxygen Concentration - - Weight 40.6 kg (89 lb 6.4 oz) 04/26/2024 10:42 A M COMMODITY SPECIALIST Height 157.5 cm (5' 2 ) 09/21/2022 1:05 PM CDT Body Mass Index 16.35 09/21/2022 1:05 PM CDT Plan of Treatment Upcoming Encounters Date Type Department Care Team (Late st Contact Info) Description 06/28/2024 9:30 AM CDT Office Visit [facility] Oncology and Hematology - [place] [address] [place] [address] Keyana Mckinney MD [address] [place] [address] Health Maintenance Due Date Last Done Comments DTAP/TDAP/TD VACCINES (1 - Tdap) 01/08/1967 Traditional Medicare (ACO) A nnual Wellness Visit 01/08/1967 Lung Cancer Screening 01/08/1998 OSTEOPOROSIS SCREENING 01/08/2013 PNEUMOCOCCAL VACCINE 50+ YEA RS (3 of 3 - PCV) 01/13/2016 01/12/2015, 01/11/2002 ZOSTER VACCINE (1 of 2) 02/01/2016 12/07/2015 RSV VACCINE (60+ or ) (1 - 1-dose 75+ series) 01/08/2023 INFLUENZA VACCINE (#1) 2023 11/16/2015, 2014 COVID-19 Vaccine (5 - 2023-2 5 season) 2023 12/26/2021, 06/19/2021, 05/08/2020, Additional history exists Medical Devices Implanted Type Area Superintendent Greens Device Identifier Shelf Expiration Date Model / Serial / Lot Cement-T12 Kypho-06/06/2022 Implanted:Qty: 1 on 06/06/2022 by Lucian Plaza MD Cement Spine Thoracic 09/02/2024 CX01A / / [id number] Description:Kyphon Xpede bon e cement implanted in T12 on 06/06/[address] Cement-L1 Kypho-06/06/2022 Implanted:Qty: 1 on 06/06/2022 by Lucian Plaza MD Cement Spine Lumbar 09/02/2024 CX01A / / [id number] Description:Kyphon Xpede bon e cement implanted in L1 on 06/06/[address] 2 Cardiac Stents Procedures Procedure Name Priority Date/Time Associated Diagnosis Comments CBC WITH DIFFERENTIAL Routine 04/19/2024 11:10 AM COMMODITY SPECIALIST CBC WITH DIFFERENTIAL Routine 04/19/2024 11:09 AM COMMODITY SPECIALIST CBC WITH DIFFERENTIAL Routine 04/19/2024 11:09 AM COMMODITY SPECIALIST CBC WITH DIFFERENTIAL Routine 04/05/2024 9:10 AM COMMODITY SPECIALIST CBC WITH DIFFERENTIAL Routine 03/22/2024 11:24 AM COMMODITY SPECIALIST CBC WITH DIFFERENTIAL Routine 03/08/2024 12:08 PM COMMODITY SPECIALIST BASIC METABOLIC PANEL Routine 02/26/2024 3:34 PM COMMODITY SPECIALIST COMPREHENSIVE METABOLIC PANEL Routine 02/26/2024 9:42 AM COMMODITY SPECIALIST from Last 3 Months Results * CBC WITH DIFFERENTIAL (04/19/2024 11:10 AM COMMODITY SPECIALIST) Only the most recent of6 resultswithin the time period is included. Blood Noe Alatorre MD HEMATOLOGY ORDERABLES Final Res ult * BASIC METABOLIC PANEL (02/26/2024 3:34 PM COMMODITY SPECIALIST) Blood us Noe Alatorre MD CHEMISTRY ORDERABLES Final Resu lt * COMPREHENSIVE METABOLIC PANEL (02/26/2024 9:42 AM COMMODITY SPECIALIST) Blood us Noe Alatorre MD CHEMISTRY ORDERABLES Final Resu lt from Last 3 Months Insurance MEDICARE PART A AND B [facility] [id number] MEDICARE PART A AND B [facility] [id number] Advance Directives For more information, please contact: [phone] * Full Code (Latest Code Status on File) Date Activated Date Inactivated Comments 06/06/2022 12:45 PM 06/07/2022 12:11 AM Care Teams Weather Stripper Relationship Specialty Start Date End Date Chuckie Aiken DO [address] [facility] [address] [place] [address] PCP - General Internal Medicine 7/7/22
[2024-05-21 08:50] LABS: Influenza A QL RT-PCR Negative (Negative); Influenza B QL RT-PCR Negative (Negative); RSV RNA, RT-PCR Negative (Negative); SARS-CoV-2 RNA PCR Negative (Negative)
== END 2024-05-21 07:44 | disposition home or self-care (01) ==
LOC: ANHLAB 07:45
PROVIDERS: PCP Internal Medicine; Visit Provider Internal Medicine Pulmonary Disease
DX: J18.9 Pneumonia, unspecified organism (principal)
CPT/HCPCS: 87637

== ENCOUNTER 2024-07-09 01:46 | Inpatient (IN) | payer MEDICARE, SELFPAY ==
[2024-07-09] VITALS (26 sets, daily range): BP systolic 103–132; BP diastolic 42–101; PULSE 38–92; RESP 17–25; TEMP 36.2–36.8; O2SAT 92–100; BMI 15.7
--- NOTE | 2024-07-09 | ECHO_ITS ---
Patient Info Name: Vania Betancourt Age: 74 years : 1950 Gender: Female Ht: 62 in Wt: 90 lbs BSA: 1.33 m2 HR: 82 bpm BP: 116 / 56 mmHg Heart Rhythm: Sinus Rhythm Technical Quality: Fair Exam Date: 07/09/2024 10:28 AM Exam Location: Echo Lab Patient Status: Inpatient Admit Date: 07/09/2024 Staff Ordering Physician: Thor Marquez MD School Psychologist: Medina Mcfarland RDCS Attending Provider: Thor Marquez MD Exam Type: CA echo doppler color flow Study Info Indications - STEMI Complete two-dimensional, color flow and Doppler transthoracic echocardiogram is performed. Summary 1. Left ventricular chamber dimension is normal. 2. Left ventricular systolic function is normal, estimated at 60-65%. 3. There is mildly increased left ventricular wall thickness. 4. The left ventricular diastolic function is grade I diastolic dysfunction. 5. Right ventricular systolic function is normal. 6. There is mild mitral valve regurgitation. Left Ventricle Left ventricular chamber dimension is normal. Left ventricular systolic function is normal, estimated at 60-65%. There is mildly increased left ventricular wall thickness. The left ventricular diastolic function is grade I diastolic dysfunction. Right Ventricle Right ventricular chamber dimension is normal. Right ventricular systolic function is normal. Left Atria Left atrial chamber dimension is normal. Right Atria Right atrial chamber dimension is normal. Atrial Septum Intact interatrial septum visualized by color flow imaging. Aortic Valve The aortic valve is not well visualized. There is no aortic valve stenosis. There is no aortic valve regurgitation. Pulmonic Valve The pulmonic valve is not well visualized. Mitral Valve There is mild mitral valve regurgitation. Tricuspid Valve There is trace tricuspid valve regurgitation. Pericardium/Pleural There is no pericardial effusion. Inferior Vena Cava Normal inferior vena cava with >50% collapse upon inspiration consistent with normal right atrial pressure, 3 mmHg. Aorta The aortic root size at the sinus of Valsalva is normal. Left Ventricular Outflow Tract Name Value Normal LVOT 2D LVOT Diameter 2.0 cm LVOT Doppler LVOT Peak Gradient 4 mmHg LVOT Mean Gradient 2 mmHg LVOT VTI 19 cm LVOT VTI/AV VTI Ratio 0.7 LVOT Stroke Volume 57 ml LVOT CO 4.6 l/min LVOT CI 3.5 l/min/m2 Pulmonic Valve Name Value Normal RVOT Doppler RVOT Peak Gradient 3 mmHg PV Doppler PV Peak Gradient 3 mmHg Mitral Valve Name Value Normal MV Doppler MV Decel [place] 372 cm/s2 MV PHT 70 ms MV Area (PHT) 3.1 cm2 4.0-5.0 MV Diastolic Function MV E Peak Velocity 90 cm/s MV A Peak Velocity 122 cm/s MV E/A 0.7 MV Decel Time 243 ms MV Annular TDI MV E/e' (Septal) 18.7 <=8.0 MV E/e' (Lateral) 13.8 <=8.0 MV E/e' (Average) 16.3 Tricuspid Valve Name Value Normal TV Regurgitation Doppler TR Peak Velocity 257 cm/s TR Peak Gradient 26 mmHg Estimated PAP/RSVP RA Pressure 3 mmHg <=5 PA Systolic Pressure 29 mmHg <36 RV Systolic Pressure 29 mmHg <36 Aorta Name Value Normal Ascending Aorta Ao Root Diameter (MM) 2.9 cm Ao Root Diam Index (MM) 2.2 cm/m2 Aortic Valve Name Value Normal AV Doppler AV Peak Velocity 152 cm/s AV Peak Gradient 9 mmHg AV Mean Gradient 5 mmHg AV VTI 28 cm AV Area (Cont Eq VTI) 2.1 cm2 >=3.0 AV Area (Cont Eq Bandar) 1.9 cm2 AV Regurgitation 2D LVOT Area 3.0 cm2 Ventricles Name Value Normal LV Dimensions 2D/MM IVS Diastolic Thickness (2D) 0.7 cm 0.6-1.0 LVID Diastole (2D) 4.3 cm 3.8-5.2 LVIW Diastolic Thickness (2D) 0.7 cm 0.6-0.9 LVID Systole (2D) 2.4 cm 2.2-3.5 LVOT Diameter 2.0 cm LV Mass (2D Cubed) 89.32 g 67.00-162.00 LV Mass Index (2D Cubed) 67 g/m2 43-95 Relative Wall Thickness (2D) 0.32 LV Fractional Shortening/Ejection Fraction 2D/MM LV Fractional Shortening (2D) 44 % 27-45 LV EF (2D Teicholz) 75 % 54-74 LV Diastolic Volume (4C MOD) 32 ml LV EF (4C MOD) 56 % LV Diastolic Volume (2C MOD) 39 ml LV EF (2C MOD) 55 % LV Diastolic Volume (BP MOD) 36 ml 46-106 LV Diastolic Volume Index (BP MOD) 27 ml/m2 29-61 LV Systolic Volume (BP MOD) 16 ml 14-42 LV Systolic Volume Index (BP MOD) 12 ml/m2 8-24 LV EF (BP MOD) 55 % 54-74 LV Diastolic Length (4C) 6.4 cm LV Systolic Length (4C) 5.6 cm LV Stroke Volume (4C MOD) 18 ml Atria Name Value Normal LA Dimensions LA Dimension (MM) 3.3 cm 2.7-3.8 LA Volume (4C A-L) 17 ml LA Volume (BP A-L) 28 ml RA Dimensions RA Area (4C) 9.0 cm2 <=18.0 Report Signatures
--- NOTE | ~2024-07-09 | XR_ITS ---
Portable chest x-ray Comparison: 10/06/2023 Clinical History: Shortness of breath Findings: COPD changes present. Stable postoperative change left lung. No acute pulmonary abnormalit y. Cardiomediastinal silhouette is stable. Bones and soft tissues are unremarkable. Impression: No acute abnormality. COPD and postoperative change in the left lung. Reviewed, dictated and finalized at location . Impression: No acute abnormality. COPD and postoperative change in the left lung.
--- NOTE | 2024-07-09 01:51 | PC.NURSE ---
STEMI called in the field - 324mg asa given route carrier. Cath team on their way in.
--- NOTE | 2024-07-09 01:56 | ECG_ITS ---
Test Date: 2024-07-09 01:52:54 Measurements Intervals [place] Rate: 38 P: 0 [place]: 0 QRS: 68 QRSD: 90 T: 102 QT: 485 QTc: 390 Interpretive Statements SINUS BRADYCARDIA INFERIOR ST ELEVATIONS WITH RECIPROCAL ST DEPRESSIONS Compared to ECG 09/30/2023 12:55:48 ACUTE INFERIOR PA NOW PRESENT Electronically Signed On 07-09-2024 14:25:38 CDT by Carlos A Miguel M.D.
--- NOTE | 2024-07-09 01:59 | ED_ITS ---
HPI - Chest Pain General Chief Complaint: Chest Pain Stated Complaint: CP, STEMI, SOB Time Seen by Provider: 07/09/24 01:50 History of Present Illness HPI narrative: Patient presents with chest pain that started about an hour ago; describes severe crushing chest pain with nausea vomiting, difficulty breathing, sweating. EMS arrived, got EKG showing STEMI, brought her here, gave her full-dose aspirin. Prior cardiac history with stents placed 20 years ago Related Data Home Medications ?Medication ?Instructions ?Recorded ?Confirmed ?Last Taken ?Type aspirin 81 mg tablet,delayed 81 mg PO DAILY 06/18/19 07/09/24 05/12/23 History release (Adult Low Dose Aspirin) anastrozole 1 mg tablet 1 mg PO DAILY 02/15/22 07/09/24 12/20/23 07:30 History potassium chloride 20 mEq 20 meq PO BID 03/01/24 07/09/24 Unknown History tablet,extended release metoprolol succinate 25 mg 25 mg PO DAILY 04/03/24 07/09/24 Unknown History tablet,extended release 24 hr palbociclib 125 mg capsule 125 mg PO DAILY 04/26/24 07/09/24 Unknown History (Ibrance) Allergies Allergy/AdvReac Type Severity Reaction Status Date / Time amoxicillin Allergy Severe Anaphylactic Verified 07/09/24 01:53 Shock shellfish derived Allergy Severe itch, Verified 07/09/24 01:53 rash, SOB bacitracin Allergy Intermediate Unknown Verified 07/09/24 01:53 Iodinated Contrast Media Allergy Intermediate Swelling Verified 07/09/24 01:53 of Lip/Tongue/Throat ipratropium Allergy Intermediate rash, Verified 07/09/24 01:53 itchy, SOB latex Allergy Intermediate Hives Verified 07/09/24 01:53 neomycin (From Maxitrol Allergy Intermediate rash, Verified 07/09/24 01:53 (neomycin sulf)) blisters, hives nitrofurantoin (From Allergy Intermediate rash, Verified 07/09/24 01:53 Macrobid) itchy, SOB perfume Allergy Intermediate rash, Verified 07/09/24 01:53 hives, blisters polymyxin B (From Maxitrol Allergy Intermediate rash, Verified 07/09/24 01:53 (neomycin sulf)) blisters, hives cinnamon Allergy Nausea and Verified 07/09/24 01:53 Vomiting Sulfa (Sulfonamide Allergy Vomiting Verified 07/09/24 01:53 Antibiotics) FRAGRANCE Allergy Severe Blister Uncoded 07/09/24 01:53 laundry soap Tide and Gain Allergy Intermediate blisters, Uncoded 07/09/24 01:53 hives, itchiness, redness, rash Review of Systems 2 Review of Systems: All systems reviewed & are unremarkable except as noted in HPI and below PMFSH Past Medical History Medical History Other drug-induced pancytopenia Nausea and vomiting Colon cancer screening Change in bowel habits Constipation Depression with anxiety Chronic anemia Chronic kidney disease Breast cancer metastasized to liver Cancer of right breast (1997) Status post mastectomy and chemo radiation. Metastatic disease to liver discovered in 2022. Gastroesophageal reflux disease Chronic obstructive pulmonary disease Hyperlipidemia Hypertension Coronary artery disease Breast cancer Hypothyroidism Surgical History Surgical History History of bladder repair surgery History of sinus surgery History of right mastectomy (1997) History of cholecystectomy (2012) History of appendectomy History of resection of small bowel (1979) History of coronary artery stent placement History of cardiac catheterization History of tonsillectomy Family History Family History Mother Patient's mother is Family history of diabetes mellitus in first degree relative Family history of lung cancer Family history of congestive heart failure Father Family history of malignant neoplasm, Onset Age: 73 Patient's father is Social History Social History Social History: Surrogate medical decision maker: Dixon Tomlinson, son. Code status: DNR Smoking packs per day: 1 Smoking cigarettes per day: 20.0 Years smoked: 50 Smoking pack-years: 50.00 Smoking status: Former smoker Tobacco type: cigarettes Second hand tobacco smoke exposure: Yes Additional smoking assessment comments: 1-2 cig a day presently Alcohol intake: never Substance use: never Substance use type: does not use Do You Feel Safe in your Home?: Yes Lack of Transportation: No Lack of Food: Never True Current Housing: I Have Housing Concerned About Future Housing: No Difficulty Paying Gas/Electric Bills: No Difficulty Paying for Meds: No Currently Unemployed: No Education: High School Diploma/GED Difficulty w/ Childcare or Family Care: No Living arrangements: with family Gender identity (if verbalized by the patient): Female Spiritual care concerns: No Exam 2 Narrative: EXAMINATION OF ORGAN SYSTEMS/BODY AREAS: Constitutional: Vital signs per nursing GENERAL: Appears uncomfortable HEAD: Normal with no signs of head trauma. EYES: EOMI, conjunctiva normal ENT: Hearing grossly intact LUNGS: Nonlabored breathing. HEART: Bradycardic ABD: [Soft], [nontender to palpation] EXT: Normal range of motion SKIN: [No rashes or lesions.] NEURO: [Alert and oriented x 3. No gross focal sensory or strength deficits.] PSYCH: Normal affect Course Vital Signs Vital signs: Vital Signs Temperature 97.2 F L 07/09/24 01:44 Pulse Rate 42 L 07/09/24 01:44 Respiratory Rate 23 H 07/09/24 01:44 Blood Pressure 104/42 L 07/09/24 01:44 Pulse Oximetry 100 07/09/24 01:44 Oxygen Delivery Room Air 07/09/24 01:44 Temperature 97.2 F L 07/09/24 01:44 Pulse Rate 38 L 07/09/24 02:10 Respiratory Rate 24 H 07/09/24 02:10 Blood Pressure 111/99 H 07/09/24 02:10 Pulse Oximetry 99 07/09/24 02:10 Oxygen Delivery Room Air 07/09/24 01:48 MDM - Chest Pain MDM Narrative Medical decision making narrative: Patient presents with chest pain, shortness of breath, nausea, EKG from EMS concerning for STEMI. lab aide activated, I did call the fellmongery worker and neurology hospitalist, with plan to take her to blood bank laboratory technician. Patient agreeable to this plan. Heparin ordered. Fluids ordered. Lab Data 07/09/24 02:01 07/09/24 02:01 Labs: Lab Results 07/09/24 Range/Units 02:01 WBC Pending RBC Pending Hgb Pending Hct Pending MCV Pending MCH Pending MCHC Pending RDW Pending Plt Count Pending MPV Pending Immature Gran % (Auto) Pending Neut % (Auto) Pending Lymph % (Auto) Pending [place] % (Auto) Pending Eos % (Auto) Pending Baso % (Auto) Pending Lymph # (Auto) Pending [place] # (Auto) Pending Eos # (Auto) Pending Baso # (Auto) Pending Abs Immat Gran (auto) Pending Absolute Neuts (auto) Pending Absolute Nucleated RBC Pending Nucleated RBC % Pending PT Pending INR Pending APTT Pending Sodium 139 (137-145) mmol/L Potassium 4.3 (3.4-5.0) mmol/L Chloride 106 (98-107) mmol/L Carbon Dioxide 26 (22-30) mmol/L Anion Gap 7 (4-12) mmol/L BUN 35 H (7-17) mg/dL Creatinine 1.39 H (0.7-1.0) mg/dL Estim Creat Clear Calc 20 ml/min Estimated GFR 37 L (59 - ) Glucose 117 H (65-110) mg/dL Calcium 8.5 (8.4-10.2) mg/dL Total Bilirubin 0.3 (0.2-1.3) mg/dL AST 20 (14-36) U/L ALT 19 (6-35) U/L Alkaline Phosphatase 48 (38-126) U/L Troponin I Pending Total Protein 6.0 L (6.3-8.2) g/dL Albumin 3.7 (3.5-5.1) g/dL Triglycerides 81 (<150) mg/dL Cholesterol 170 (0-200) mg/dL LDL Cholesterol Direct 77 mg/dL HDL Direct 51 mg/dL Critical Care Time Critical Care Time Critical Care Time: Yes Total Critical Care Time: 31 Discharge Plan Discharge Clinical Impression: ST elevation (STEMI) myocardial infarction Patient Disposition: Still a Patient Condition: Critical
[2024-07-09] MEDS: HEPARIN SODIUM 5,000 UNITS/ML VIAL 2500 UNITS IV PUSH (02:00)
--- OUTSIDE RECORDS SUMMARY | 2024-07-09 02:02 | XMS_ITS | Clinical Summary ---
Author Organization [facility] Address [address] [facility] [place] [address] Care Team Providers Care Database Administrator Name Role Phone Chuckie Aiken Primary Care Provider [phone] Allergies Active Allergy Reactions Criticality Noted Date [...] daily. Active fluticasone propionate (FLONASE) 50 mcg/spray [place], Suspension nasal inhaler Administer 1 [place] in each nostril daily. Active levothyroxine 75 [...] tabletIndicatio ns:Allergy, initial encounter,Metas tatic breast cancer Take 1 Tablet (50 mg) by mouth [...] NEEDED FOR NAUSEA OR VOMITING 20 Tablet 4 Active potassium chloride (KLOR-CON) 10 mEq Extended Release tablet Take 1 Tablet (10 mEq) by mouth 2 times daily with meals. 30 Tablet 4 Active Active Problems Problem Noted Date Diagnosed Date Cancer, metastatic to bone 05/18/2022 Metastatic breast cancer 09/09/2021 Encounters Date Type Department Care Team Description 07/08/2024 Orders Only [facility] - [place] [address] [place] [phone] Noe Alatorre MD Stage 3b chronic kidney disease (CMS/HCC) 07/01/2024 Orders Only [facility] - [place] [address] [place] [phone] Noe Alatorre MD 06/28/2024 9:30 AM CDT Office Visit [facility] - [place] [address] [place] [address] Keyana Mckinney MD Stage 3b chronic kidney disease (CMS/HCC) (Primary Dx) 06/28/2024 Orders Only [facility] - [place] [address] [place] [address] Keyana Mckinney MD Stage 3b chronic kidney disease (CMS/HCC) (Primary Dx) 06/28/2024 Orders Only [facility] - [place] [address] [place] [address] Keyana Mckinney MD Stage 3b chronic kidney disease (CMS/HCC) (Primary Dx) 06/24/2024 Orders Only [facility] - [place] [address] [place] [address] Noe Alatorre MD Stage 3b chronic kidney disease (CMS/HCC) 06/10/2024 Orders Only [facility] - [place] [address] [place] [address] Noe Alatorre MD Stage 3b chronic kidney disease (CMS/HCC) 05/27/2024 Orders Only [facility] [address] [place] [address] Noe Alatorre MD Stage 3b chronic kidney disease (CMS/HCC) 05/13/2024 Orders Only [facility] [address] [place] [phone] Noe Alatorre MD Stage 3b chronic kidney disease ([facility]/HCC) 04/29/2024 Orders Only [facility] [address] [place] [address] Noe Alatorre MD Stage 3b chronic kidney disease ([facility]/HCC) 04/26/2024 10:45 AM GROUP CONTROLLER Office Visit [facility] [address] [place] [address] Noe Alatorre MD Primary malignant neoplasm of breast with metastasis ([facility]/HCC) (Primary Dx) 04/24/2024 External Device Data STL ABSTRACTION Provider, Abstract 04/22/2024 Orders Only [facility] [address] [place] [address] Noe Alatorre MD 04/22/2024 Abstract [facility] [address] [place] [address] Noe Alatorre MD 04/15/2024 Orders Only [facility] [address] [place] [phone] Noe Alatorre MD Stage 3b chronic kidney disease ([facility]/HCC) from Last 3 Months Immunizations Immunization Administration [...] Sign Reading Time Taken Comments Blood Pressure 132/70 06/28/2024 9:26 AM CDT Pulse 79 06/28/2024 9:26 AM CDT Temperature 36.3 C (97.3 F) 06/28/2024 9:26 AM CDT Respiratory Rate 15 06/28/2024 9:26 AM CDT Oxygen Saturation 93% 06/28/2024 9:26 AM CDT Inhaled Oxygen Concentration - - Weight 40.6 kg (89 lb 9.6 oz) 06/28/2024 9:26 AM CDT Height 157.5 cm (5' 2 ) 09/21/2022 1:05 PM CDT Body Mass Index 16.39 09/21/2022 1:05 PM CDT Plan of Treatment Upcoming Encounters Date Type Department Care Team (Late st Contact Info) Description 07/22/2024 9:45 AM CDT Office Visit [facility] - [place] [address] [facility] [address] [place] [address] Noe Alatorre MD [address] [facility] [address] [place] [address] Health Maintenance Due Date Last Done Comments DTAP/TDAP/TD VACCINES (1 - Tdap) 01/08/1967 Lung Cancer Screening 01/08/1998 OSTEOPOROSIS SCREENING [...] history exists Medical Devices Implanted Type Area Travel Trailer Components Assembler Device Identifier Shelf Expiration Date Model / Serial / Lot Cement-T12 [employer]pho-06/06/2022 Implanted:Qty: 1 on 06/06/2022 by Lucian Plaza MD Cement Spine Thoracic 09/02/2024 CX01A / / [id number] Description:Kyphon Xpede bon e cement implanted in T12 on 06/06/[address] Cement-L1 Kypho-06/06/2022 Implanted:Qty: 1 on 06/06/2022 by Lucian Plaza MD Cement Spine Lumbar 09/02/2024 CX01A / / [id number] Description:Kyphon Xpede bon e cement implanted in L1 on 06/06/[address] Plaza 2 Cardiac Stents Procedures Procedure Name Priority Date/Time Associated Diagnosis Comments CBC MIXED CELL DIFFERENTIAL Routine 06/28/2024 10:37 AM CDT CANCER ANTIGEN 15-3 Routine 06/21/2024 1 :27 PM CDT CBC MIXED CELL DIFFERENTIAL Routine 06/21/2024 11:02 AM CDT CBC WITH DIFFERENTIAL Routine 04/19/2024 11:10 AM GROUP CONTROLLER CBC WITH DIFFERENTIAL Routine 04/19/2024 11:09 AM GROUP CONTROLLER CBC WITH DIFFERENTIAL Routine 04/19/2024 11:09 AM GROUP CONTROLLER from Last 3 Months Results * CBC MIXED CELL DIFFERENTIAL (06/28/2024 10:37 AM CDT) Only the most recent of2 resultswithin the time period is included. Blood us Noe Alatorre MD HEMATOLOGY ORDERABLES Final Res ult * CANCER ANTIGEN 15-3 (06/21/2024 1:27 PM CDT) Blood us Noe Alatorre MD CHEMISTRY ORDERABLES Final Resu lt * CBC WITH DIFFERENTIAL (04/19/2024 11:10 AM GROUP CONTROLLER) Only the most recent of3 resultswithin the time period is included. Blood us Noe Alatorre MD HEMATOLOGY ORDERABLES Final Res ult from Last 3 Months Insurance MEDICARE PART A AND B [facility] [id number] MEDICARE PART A AND B [facility] [id number] Advance Directives For more information, please contact: [phone] * Full Code (Latest Code Status on File) Date Activated Date Inactivated Comments 06/06/2022 12:45 PM 06/07/2022 12:11 AM Care Teams Database Administrator Relationship Specialty Start Date End Date Chuckie Aiken DO [address] [facility] [address] [place] [address] PCP - General Internal Medicine 09/09/21
--- OUTSIDE RECORDS SUMMARY | 2024-07-09 02:02 | XMS_ITS | Patient Health Record ---
Author Organization [facility] Address [address] [facility] [address] [place] [address] Care Team Providers Care Roof Service Technician Name Role Phone Maria Luisa Billingsley Primary Care Provider [phone] Allergies Allergen (clinical drug ingredient) Drug/Non Drug [...] tab(s) orally once a day *Reorder from [facility] for eRx and Interaction Alerts* Active Zakiya 24 Hour Allergy 180 mg 1 tab(s) orally once a day *Reorder from [facility] for eRx and Interaction Alerts* Active Simvastatin 40 mg 1 tab(s) orally once a day (at bedtime) Active Spiriva Respimat 2.5mcg/actuation as directed inhaled as directed *Pick strength-form from [facility] for eRX* 05/22/2017 Not-Taking clonazePAM 0.5 mg 1 tab(s) orally once a day Active Aspirin Enteric Coated 325 mg 1 tab(s) orally once a day *Reorder from [facility] for eRx and Interaction Alerts* Active Omeprazole 20 mg 1 cap(s) orally once a day *Pick strength-form from [facility] for eRX* Active buPROPion 300 mg/24 hours 1 tab(s) orally once a day *Reorder from [facility] for eRx and Interaction Alerts* Active Immunizations Vaccine Route Administration Date Status Comme ann Influenza (split), 3 yrs and above Unknown 01/04/2015 Administered Immunization Giv en by from source eCW:: Gonzá[place] Influenza (split), 3 yrs and above Unknown 11/16/2015 Administered Immunization Giv en by from source eCW:: Ill. Pneumococcal polysaccharide PPV23 Unknown 01/11/2002 Administered Immunizatio n Given by from source eCW:: [place] Pneumococcal polysaccharide PPV23 Unknown 01/12/2015 Administered Immunizatio n Given by from source eCW:: Ill. Zoster Unknown 12/07/2015 Administered Immunization Given by from source eCW:: Ill. Social History Social History Additional Details Category Social Info Options Details Migrated Social History Migrated Social History (Alcohol): Points: 0, Interpretation: Negative ;(Alcohol:):no ;(Children:):sons:3 ;(Drug use:):no ;(Marital Status:): ;(Smoking:):yes status current smoker /// Miguelina Álvarez 02/20/15 1201 PM > Pt smokes about 1 pack per day for about 50 years., up dated 04/19/2018 ; Problems Problem Type SNOMED Code ICD Code Onset Dates Problem Status W/U Status Risk Notes Problem Hypothyroidism (94779833) Other specified hypothyroidism (E03.8) Active confirmed Problem Tobacco user (832116216) Nicotine dependence, unspecified, uncomplicated (F17.200) Active confirmed Problem Dysthymia (93293454) Dysthymic disorder (F34.1) Active confirmed Problem Chronic ischemic heart disease (880495477) Chronic ischemic heart disease, unspecified (I25.9) Active confirmed Problem Acute exacerbation of chronic obstructive airways disease (469067327) Chronic obstructive pulmonary disease with (acute) exacerbation (J44.1) Active confirmed Problem Chronic obstructive pulmonary disease (37534915) Chronic obstructive pulmonary disease, unspecified (J44.9) Active confirmed Problem Osteoarthritis of first carpometacarpal joint (96617836) Osteoarthritis of first carpometacarpal joint, unspecified (M18.9) Active confirmed Problem Tobacco use (868468527) Tobacco use (Z72.0) Active confirmed Problem Hyperlipidemia (37052943) Other hyperlipidemia (E78.4) Active confirmed Problem Essential hypertension (35278900) Essential (primary) hypertension (I10) Active confirmed Problem Allergic rhinitis (95863324) Allergic rhinitis (J30.9) Active confirmed Plan Of Treatment No Information Medications Administered Medication Instructions Date of Administration Dosage Notes Methylprednisolone 40mg 05/18/2017 40 mg Methylprednisolone 80mg 04/19/2018 125 mg Medical (General) History Medical History History ICD Code hyperlipidemia COPD-spirometry [place] 2014 CAD - 2 stents (2001 and 2003- [facility])- [place] 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
--- OUTSIDE RECORDS SUMMARY | 2024-07-09 02:02 | XMS_ITS | Referral Summary ---
Author Organization [facility] [address] [facility] [address] Address [address] [place] [address] Care Team Providers Care Tacker Elastic Band Name Role Phone Jae Forrest DO Primary Care Provider Allergies Active Allergy Reactions [...] 40 mg tabletIndications: Coronary artery disease involving the [place] coronary artery of the [place] heart without angina pectoris Take 1 tablet [...] Tobacco abuse Coronary artery disease invo lving the [place] coronary artery of the [place] heart without angina pectoris 09/18/2015 Overview (06/09/2016): Coronary artery disease involving the [place] coronary artery of [place] heart without angina pectoris History of myocardial [...] on file 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
--- OUTSIDE RECORDS SUMMARY | 2024-07-09 02:02 | XMS_ITS | Clinical Summary ---
Author Organization [facility] [address] [facility] [address] Address [address] [place] [address] Care Team Providers Care Er Manager Name Role Phone Jae Forrest DO Primary Care Provider [phone] Allergies Active Allergy Reactions Criticality Noted Date [...] 40 mg tabletIndications: Coronary artery disease involving [place] coronary artery of [place] heart without angina pectoris Take 1 tablet [...] Tobacco abuse Coronary artery disease invo lving [place] coronary artery of [place] heart without angina pectoris 09/18/2015 Overview (06/09/2016): Coronary artery disease involving [place] coronary artery of [place] heart without angina pectoris History of myocardial [...] on file 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
[2024-07-09] MEDS: HEPARIN SOD/D5W 100 UNITS/ML 25,000 UNITS/250 ML BAG IV CONT (02:03)
--- OUTSIDE RECORDS SUMMARY | 2024-07-09 02:03 | XMS_ITS | Clinical Summary ---
Author Organization [facility] Address [address] [place] [address] Care Team Providers Care Farm Crew Leader Name Role Phone Unavailable Primary Care Provider Unavailabl e Social History Tobacco Use Types Packs/Day Years Used Date Smoking Tobacco: Never Assessed Comments Unknown Sex and Gender Information Value Date Recorded Sex Assigned at Not on file Legal Sex Female 5:09 PM CDT Gender Identity Not on file Sexual Orientation Not on file Plan of Treatment Health Maintenance Due Date Last Done Comments Hepatitis C 01/08/1966 DTaP, Tdap and Td Vaccines ( 1 - Tdap) 01/08/1967 Pneumococcal Vaccine: 50+ Ye ars (1 of 1 - PCV) 01/08/1998 Zoster Vaccines (1 of 2) 01/08/1998 Dexa Scan (General) 01/08/2013 RSV Immunization or 60+ Years (1 - 1-dose 75+ series) 01/08/2023 COVID-19 Vaccine (2023-2 5 season) 2023 Meningococcal B Vaccine Aged Out No l onger eligible based on patient's age to complete this topic Meningococcal Vaccine Aged Out No kirby randy eligible based on patient's age to complete this topic RSV Immunizations Under 20 Months Aged Out No longer eligible based on patient's age to complete this topic
--- OUTSIDE RECORDS SUMMARY | 2024-07-09 02:03 | XMS_ITS | Encounter Summary ---
Author Organization [facility] Address [address] [place] [address] Care Team Providers Care Waterproofer Helper Name Role Phone Chuckie Aiken DO Primary Care Provider [phone] Encounter Details Date Type Department Care Team [...] 07/22/2024 9:45 AM CDT Office Visit [facility] - [place] [address] [facility] [address] [place] [address] Noe Alatorre MD [address] [facility] [address] [place] [address] documented as of this encounter Visit Diagnoses Diagnosis Follow-up examination following surgery- Primary documented in this encounter Care Teams Waterproofer Helper Relationship Specialty Start Date End Date Chuckie Aiken DO [address] [facility] [address] [place] [phone] PCP - General Internal Medicine 09/09/21 documented as of this encounter
--- OUTSIDE RECORDS SUMMARY | 2024-07-09 02:03 | XMS_ITS | Encounter Summary ---
Author Organization [facility] Address [address] [place] [address] Care Team Providers Care Boom Pump Operator Name Role Phone Chuckie Aiken DO Primary Care Provider [phone] Encounter Details Date Type Department Care Team (Late Contact Info) Description 07/08/2024 Orders Only [facility] On[facility] and Hematology - [place] [address] [facility] [address] [place] [address] Noe Alatorre MD [address] [facility] [address] [place] [address] Stage 3b chronic kidney disease (CMS/HCC) Social History Tobacco Use Types Packs/Day Years [...] Department Care Team (Late Contact Info) Description 07/22/2024 9:45 AM CDT Office Visit [facility] Oncology and Hematology - [place] [address] [facility] [address] [place] [address] Noe Alatorre MD [address] [facility] [address] [place] [address] documented as of this encounter Visit Diagnoses Diagnosis Stage 3b chronic kidney disease (CMS/HCC) documented in this encounter Care Teams Boom Pump Operator Relationship Specialty Start Date End Date Chuckie Aiken DO [address] [place] [address] PCP - General Internal Medicine 09/09/21 documented as of this encounter
[2024-07-09] MEDS: ONDANSETRON INJ 4 MG/2 ML VIAL IV PUSH ×2 (02:04→11:42)
[2024-07-09] MEDS: LACTATED RINGERS 1,000 ML 999 ML IV CONT (02:06)
[2024-07-09 02:07] LABS: Eosinophils Absolute Auto 0.2 K/mm3 (0-0.3); Eosinophils Percent Auto 3.9 % (0-4.4); Hematocrit 32.4 % (37.0-47.0); Hemoglobin 10.2 g/dL (12.0-15.0); Immature Granulocyte Absolute 0.02 K/mm3 (0.00-0.031); Immature Granulocyte Percent A 0.5 % (0-0.5); Lymphocytes Absolute Auto 2.25 K/mm3 (0.9-3.2); Lymphocytes Percent Auto 58.3 % (18.3-44.2); Mean Corpuscular HGB Conc 31.5 g/dl (32-36); Mean Corpuscular Hemoglobin 31.5 pg (26-34); Mean Platelet Volume 9.6 fl (7.4-10.4); Monocytes Absolute Auto 0.3 K/mm3 (0.1-0.6); Monocytes Percent Auto 7.5 % (2.6-8.5); Neutrophils Absolute Auto 1.1 K/mm3 (1.3-6.7); Neutrophils Percent Auto 28.8 % (45.5-73.1); Platelet Count Result 260 k/mm3 (150-375); Red Blood Count 3.24 M/mm3 (4.2-5.4); Red Cell Distribution Width 16.1 % (11.5-14.5); White Blood Count 3.9 K/mm3 (4.5-10.0)
--- NOTE | 2024-07-09 02:08 | PC.NURSE ---
pt shaved, pt had bm, pt cleaned up.
--- NOTE | 2024-07-09 02:18 | PC.NURSE ---
Pt requesting us to contact yulia Metcalf [phone]. VM left for son to return a call back.
[2024-07-09 02:19] LABS: Alanine Aminotransferase 19 U/L (6-35); Albumin Level 3.7 g/dL (3.5-5.1); Alkaline Phosphatase 48 U/L (38-126); Anion Gap 7 mmol/L (4-12); Aspartate Amino Transferase 20 U/L (14-36); Bilirubin,Total 0.3 mg/dL (0.2-1.3); Blood Urea Nitrogen 35 mg/dL (7-17); Calcium 8.5 mg/dL (8.4-10.2); Carbon Dioxide 26 mmol/L (22-30); Chloride 106 mmol/L (98-107); Cholesterol 170 mg/dL (0-200); Estimated CRCL calculation 20 ml/min; Estimated Glomerular Filt Rate 37; Glucose 117 mg/dL (65-110); HDL Direct 51 mg/dL; Potassium 4.3 mmol/L (3.4-5.0); Sodium 139 mmol/L (137-145); Triglycerides 81 mg/dL (<150)
[2024-07-09 02:29] LABS: LDL Cholesterol Direct 77 mg/dL
[2024-07-09 02:32] LABS: Troponin I < 0.012 ng/mL (0.000-0.034)
[2024-07-09 02:33] LABS: INR 0.9; Prothrombin Time 12.9 Seconds (11.1-14.7)
[2024-07-09 02:34] LABS: Partial Thromboplastin Time 24.4 Seconds (22.3-36.8)
--- NOTE | 2024-07-09 03:38 | P.HP_ITS ---
H&P: HPI History of Present Illness Date/Time: 07/09/24 03:38 Chief Complaint: Chest pain Narrative: HPI: 74-year-old female with known CAD, history of remote PCI of proximal and distal RCA around 1999 at [facility] as per patient- intervention report not available; COPD, history of CA breast, tobacco abuse. Patient presented to [facility] Emergency Room on 07/09/2024 with compla ints of chest pain that started about 2-3 hours prior to arrival. EMS EKG on my personal interpretation showed sinus bradycardia, heart rate 39 beats per minute, ST elevation in inferior leads with reciprocal ST depression. Cardiac catheterization lab was activated for primary PCI. At the time of evaluation in the geophysical laboratory director, patient had ongoing chest discomfort. Patient reported CAD, and history of remote PCI/stenting of RCA. Review of old medical records indicate that she had cardiac catheterization done on 08/29/2013 at [facility] which reportedly showed [id number] nonobstructive CAD, normal LVEF. Patient states that she used to follow up with Dr. Reina. Review of Systems Review of Systems: General: Negative for fever, chills, fatigue Psychological: Negative for anxiety, depression Ophthalmic: negative for loss of vision ENT: Negative for epistaxis, headaches Allergy and immunology: Negative for hives, nasal congestion Hematologic and lymphatic: Negative for overt bleeding problems Endocrine: Negative for hot flashes, palpitations Respiratory: Positive for cough Cardiovascular: Positive for chest pain, shortness of breath, dizziness Gastrointestinal: Negative for abdominal pain, nausea, vomiting, hematochezia Musculoskeletal: Negative for myalgia, joint pains Neurological: Negative for weakness Dermatological: Negative for rash, skin discoloration PMFSH Past Medical History Medical History Other drug-induced pancytopenia Nausea and vomiting Colon cancer screening Change in bowel habits Constipation Depression with anxiety Chronic anemia Chronic kidney disease Breast cancer metastasized to liver Cancer of right breast (1997) Status post mastectomy and chemo radiation. Metastatic disease to liver discovered in 2022. Gastroesophageal reflux disease Chronic obstructive pulmonary disease Hyperlipidemia Hypertension Coronary artery disease Breast cancer Hypothyroidism Surgical History Surgical History History of bladder repair surgery History of sinus surgery History of right mastectomy (1997) History of cholecystectomy (2012) History of appendectomy History of resection of small bowel (1979) History of coronary artery stent placement History of cardiac catheterization History of tonsillectomy Family History Family History Mother Patient's mother is Family history of diabetes mellitus in first degree relative Family history of lung cancer Family history of congestive heart failure Father Family history of malignant neoplasm, Onset Age: 73 Patient's father is Social History Social History Social History: Surrogate medical decision maker: Dixon Tomlinson, yulia. Code status: DNR Smoking packs per day: 1 Smoking cigarettes per day: 20.0 Years smoked: 50 Smoking pack-years: 50.00 Smoking status: Former smoker Tobacco type: cigarettes Second hand tobacco smoke exposure: Yes Additional smoking assessment comments: 1-2 cig a day presently Alcohol intake: never Substance use: never Substance use type: does not use Do You Feel Safe in your Home?: Yes Lack of Transportation: No Lack of Food: Never True Current Housing: I Have Housing Concerned About Future Housing: No Difficulty Paying Gas/Electric Bills: No Difficulty Paying for Meds: No Currently Unemployed: No Education: High School Diploma/GED Difficulty w/ Childcare or Family Care: No Living arrangements: with family Gender identity (if verbalized by the patient): Female Spiritual care concerns: No Meds Home Medications and Allergies Home Medications ?Medication ?Instructions ?Recorded ?Confirmed ?Type aspirin 81 mg tablet,delayed 81 mg PO DAILY 06/18/19 07/09/24 History release (Adult Low Dose Aspirin) anastrozole 1 mg tablet 1 mg PO DAILY 02/15/22 07/09/24 History ondansetron 4 mg disintegrating 4 mg PO Q8H PRN nausea and 12/05/23 07/09/24 Rx tablet vomiting #28 tabs bupropion HCl 150 mg 24 hr tablet, 150 mg PO QAM 30 days #90 tabs 12/21/23 07/09/24 Rx extended release potassium chloride 20 mEq 20 meq PO BID 03/01/24 07/09/24 History tablet,extended release metoprolol succinate 25 mg 25 mg PO DAILY 04/03/24 07/09/24 History tablet,extended release 24 hr palbociclib 125 mg capsule 125 mg PO DAILY 04/26/24 07/09/24 History (Ibrance) prednisone 10 mg tablet 40 mg (4 x 10 mg) PO DAILY #20 tabs 05/21/24 07/09/24 Rx amlodipine 5 mg tablet 5 mg PO DAILY #90 tabs 06/04/24 07/09/24 Rx albuterol sulfate 90 mcg/actuation See Rx Instructions .Route 07/01/24 07/09/24 Rx aerosol inhaler .COMPLEX #8.5 grams Allergies Allergy/AdvReac Type Severity Reaction Status Date / Time amoxicillin Allergy Severe Anaphylactic Verified 07/09/24 01:53 Shock shellfish derived Allergy Severe itch, Verified 07/09/24 01:53 rash, SOB bacitracin Allergy Intermediate Unknown Verified 07/09/24 01:53 Iodinated Contrast Media Allergy Intermediate Swelling Verified 07/09/24 01:53 of Lip/Tongue/Throat ipratropium Allergy Intermediate rash, Verified 07/09/24 01:53 itchy, SOB latex Allergy Intermediate Hives Verified 07/09/24 01:53 neomycin (From Maxitrol Allergy Intermediate rash, Verified 07/09/24 01:53 (neomycin sulf)) blisters, hives nitrofurantoin (From Allergy Intermediate rash, Verified 07/09/24 01:53 Macrobid) itchy, SOB perfume Allergy Intermediate rash, Verified 07/09/24 01:53 hives, blisters polymyxin B (From Maxitrol Allergy Intermediate rash, Verified 07/09/24 01:53 (neomycin sulf)) blisters, hives cinnamon Allergy Nausea and Verified 07/09/24 01:53 Vomiting Sulfa (Sulfonamide Allergy Vomiting Verified 07/09/24 01:53 Antibiotics) FRAGRANCE Allergy Severe Blister Uncoded 07/09/24 01:53 laundry soap Tide and Gain Allergy Intermediate blisters, Uncoded 07/09/24 01:53 hives, itchiness, redness, rash Vital Signs Vital Signs - 24 hr 07/09/24 01:44 07/09/24 01:48 07/09/24 01:50 Temperature 36.2 C L Pulse Rate 42 L 51 L Respiratory Rate 23 H Blood Pressure 104/42 L Pulse Oximetry 100 Oxygen Delivery Room Air Room Air 07/09/24 02:10 Temperature Pulse Rate 38 L Respiratory Rate 24 H Blood Pressure 111/99 H Pulse Oximetry 99 Oxygen Delivery Exam Narrative: PHYSICAL EXAMINATION: GENERAL: Thin-appearing female, alert MENTAL STATUS: Anxious EYES: Extraocular movements intact, no pallor EARS: External ears appear normal, hearing grossly normal NOSE: Normal and patent, no discharge MOUTH: Mucous membranes moist, tongue normal NECK: Supple, no JVD CHEST: Diminished breath sounds HEART: Bradycardic, regular, somewhat distant heart sounds ABDOMEN: Soft, nontender NEUROLOGICAL: Alert, oriented, normal speech, no gross motor deficits MUSCULOSKELETAL: No major deformity, no amputation EXTREMITIES: No pedal edema, no clubbing, no cyanosis SKIN: no rash on the exposed area, no cyanosis PSYCHIATRIC: Normal mood, appropriate affect H&P: Results Labs Labs: Short CBC 07/09/24 Range/Units 02:01 WBC 3.9 L (4.5-10.0) K/mm3 Hgb 10.2 L (12.0-15.0) g/dL Hct 32.4 L (37.0-47.0) % Plt Count 260 (150-375) k/mm3 BMP 07/09/24 02:01 Sodium 139 Potassium 4.3 Chloride 106 Carbon Dioxide 26 BUN 35 H Creatinine 1.39 H Glucose 117 H Calcium 8.5 Cardiac Enzymes 07/09/24 Range/Units 02:01 Troponin I < 0.012 (0.000-0.034) ng/mL Liver Function 07/09/24 Range/Units 02:01 Total Bilirubin 0.3 (0.2-1.3) mg/dL AST 20 (14-36) U/L ALT 19 (6-35) U/L Alkaline Phosphatase 48 (38-126) U/L Albumin 3.7 (3.5-5.1) g/dL Assessment and Plan Assessment and plan (1) STEMI (ST elevation myocardial infarction): Code(s): I21.3 - ST elevation (STEMI) myocardial infarction of unspecified site Status: Acute Assessment and Plan: 74-year-old female with known CAD, history of remote PCI of proximal and distal RCA around 1999 at [facility] as per patient-intervention report not available; COPD, history of CA breast, tobacco abuse. Patient presented to hospital via EMS with chest pain for 2-3 hours, found to have inferior ST-elevation FL. Coronary angiogram showed 100% thrombotic occ lusion of distal RCA stented (very late stent thrombosis) with significant thrombus burden. [id number] nonobstructive disease in proximal-mid LAD. Patient had VFib cardiac arrest in the geophysical laboratory director prior to intervention, and was successfully shocked x1 with anglican of sinus rhythm. Patient underwent thrombectomy using penumbra CAT Rx, followed by balloon angioplasty with anglican of TAMMY 3 flow. The stenosis is at the bifurcation of the distal RCA, and can undergo YOEL placement or DCB angioplasty at a later time. Hyperdynamic LV systolic function on LV gram. -admit to ICU -dual antiplatelet therapy with aspirin and ticagrelor; high-intensity statin. -echo with Doppler -labs including CMP, CBC, HbA1c, serial troponins for prognostication -smoking cessation (2) Tobacco abuse: Code(s): Z72.0 - Tobacco use Status: Acute Assessment and Plan: Smoking cessation counseling was done
--- NOTE | 2024-07-09 03:47 | WPDCARDPROC ---
Cardiac Cath Procedure Note Date of procedure:: 07/09/24 Performing physician:: Thor Marquez MD Procedure Procedure note:: EMERGENT CARDIAC CATHETERIZATION AND PERCUTANEOUS CORONARY INTERVENTION REPORT DATE OF PROCEDURE: 07/09/2024 INDICATION FOR PROCEDURE: ACUTE CORONARY SYNDROME/INFERIOR ST-ELEVATION MD BRIEF CLINICAL HISTORY: 74-year-old female with known CAD, history of remote PCI of proximal and distal RCA around 1999 at [facility] as per patient-intervention report not available; COPD, history of CA breast, tobacco abuse. Patient presented to [facility] Emergency Room on 07/09/2024 with complaints of chest pain that started about 2-3 hours prior to arrival. EMS EKG on my personal interpretation showed sinus bradycardia, heart rate 39 beats per minute, ST elevation in inferior leads with reciprocal ST depression. Cardiac catheterization lab was activated for primary PCI. At the time of evaluation in the laborer cutting tool, patient had ongoing chest discomfort. Patient reported CAD, and history of remote PCI/stenting of RCA. Review of old medical records indicate that she had cardiac catheterization done on 08/29/2013 at [facility] which reportedly showed [id number] nonobstructive CAD, normal LVEF. PROCEDURES PERFORMED: 1. Left heart catheterization- Selective left and right coronary angiogram; left ventriculogram and hemodynamic assessment 2. Primary Percutaneous coronary intervention-aspiration thrombectomy (penumbra CAT Rx) of totally occluded distal RCA followed by balloon angioplasty of distal RCA and RPL branch with pentecostal of TAMMY 3 flow. 3. Successful 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 x1 for VFib cardiac arrest in the laborer cutting tool prior to PCI 4. Deployment of Mynx hemostatic device 5. Moderate sedation-CPT code 64738 and beyond MODERATE SEDATION: Midazolam 1 mg; fentanyl 25 mcg. Start time 0246 , Stop time 0327 ; Total [id number] time 41 minutes; Natalie Ruby RN was trained observer for moderate sedation. ACCESS SITE: Right common femoral artery PROCEDURE NOTE: Patient was emergently brought to catheterization lab and prepped and draped in a usual sterile manner. After local anesthesia with lidocaine, right common femoral artery access was taken with micropuncture needle followed by insertion of a 6 [place] sheath. Selective left and right coronary angiogram was performed using 5 [place] JL4 and 6 [place] JR4 guide catheters respectively. Orthogonal views were taken. After completion of PCI, a 5 [place] pigtail catheter was advanced in the LV cavity and was flushed with normal saline. LV pressure measurement was performed. After this, left ventriculogram was performed. The catheter was flushed again, and gradient across the aortic valve was measured on the pullback of the catheter. After completion of procedure, vascular closure device was deployed with good hemostasis. FINDINGS: LEFT MAIN CORONARY: Medium to large caliber long vessel, minimal narrowing in the distal segment. LEFT ANTERIOR DESCENDING ARTERY: Medium caliber vessel, tapers distally and reaches LV apex. There is about 40-50% stenosis in the proximal-mid segment. Diagonal branches are small caliber vessel without significant focal stenosis. LEFT CIRCUMFLEX ARTERY: Somewhat poorly visualized due to overlap of the vessels. Medium caliber vessel, no significant focal stenosis. RIGHT CORONARY ARTERY: Medium to large caliber, dominant vessel. Previously placed stent in the proximal segment is patent without significant lumen loss. There is 100% thrombotic occlusion of the distal stent. After angioplasty, InStent restenoses noted with stenosis at the ostia of PD and PLV branches. The branch vessels are medium caliber vessels. LEFT VENTRICULOGRAM: Hyperdynamic LV systolic function, ejection fraction more than 70%. LVEDP 18 mmHg. HEMODYNAMIC ASSESSMENT: Opening pressure 92/40 mmHg, closing pressure 120/38 mmHg, LVEDP 18 mmHg; no significant gradient across aortic valve on the pullback of pigtail catheter. INTERVENTION REPORT: RCA was selectively engaged using 6 [place] JR4 guide catheter. Patient was given aspirin in the ER, was loaded with ticagrelor 180 mg in the laborer cutting tool. Bivalirudin was given for procedural anticoagulation. Just prior to PCI, patient had significant bradycardia with heart rate in 30s. She received phenylephrine. Subsequently, patient had VFib cardiac arrest, and was successfully defibrillated x1 with pentecostal of sinus rhythm. Patient received fluid boluses with IV normal saline. The total occluded distal RCA was upset because using 0.014 aeroplane pilot 150 wire. Due to significant thrombus burden, we proceeded with aspiration thrombectomy using penumbra CAT Rx catheter with extraction of thrombus. Next, angiogram showed high-grade InStent restenosis in the previously placed distal RCA stent with involvement of the ostium of PDA and PLV branches. Next, balloon angioplasty was performed using 2.5 x 15 mm compliant balloon. There was some more difficulty in advancing the balloon. After this, additional balloon angioplasty was performed using 2.0 x 8 mm and 2.5 x 8 mm noncompliant balloons at high inflation pressures. Reasonable angiographic results were achieved with balloon angioplasty with about 40% residual stenosis. There was pentecostal of TAMMY 3 flow. The in stent restenosis is in the distal most part of the vessel at the bifurcation. Additional stenting was not performed at this time, which can be performed at a later time, or consideration for drug coated balloon angioplasty. Patient was hemodynamically stable at the completion of PCI. Left ventriculogram was performed as described above. Mynx vascular closure device was deployed for local hemostasis. CONCLUSIONS: 1. CAD: 100% thrombotic occlusion of distal RCA stent (very late stent thrombosis)-infarct related vessel; about 40-50% stenosis proximal-mid LAD. 2. Hyperdynamic LV systolic function, LVEF more than 70%; LVEDP 18 mmHg. 3. Successful 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 x1 for VFib cardiac arrest in the laborer cutting tool prior to PCI 4. Primary PCI-aspiration thrombectomy (penumbra CAT Rx) of distal RCA stent thrombosis, followed by balloon angioplasty using NC balloons with pentecostal of TAMMY 3 flow. The ISR is at the bifurcation of the distal RCA, and can undergo YOEL placement or DCB angioplasty in an elective fashion at a later time. PLAN/RECOMMENDATIONS: -admit to ICU -dual antiplatelet therapy with aspirin and ticagrelor; high-intensity statin. -echo with Doppler -labs including CMP, CBC, HbA1c; serial troponins for prognostication -smoking cessation -ICU physician updated This document was completed by using [employer] Fluency Direct speech recognition software, therefore, card scraper variances may occur.
--- NOTE | 2024-07-09 04:00 | ECG_ITS ---
Test Date: 2024-07-09 04:04:24 Measurements Intervals [place] Rate: 90 P: 74 SD: 182 QRS: 55 QRSD: 93 T: 78 QT: 385 QTc: 473 Interpretive Statements SINUS RHYTHM INFERIOR ST ELEVATIONS WITH RECIPROCAL ST DEPRESSIONS CONSISTENT WITH ACUTE AL Compared to ECG 07/09/2024 01:52:54 ST (T wave) deviation now present SINUS BRADYCARDIA NO LONGER PRESENT Electronically Signed On 07-09-2024 14:26:41 CDT by Carlos A Miguel M.D.
[2024-07-09] MEDS: SODIUM CHLORIDE 0.9% IV 1,000 ML 100 ML IV CONT (04:49)
--- NOTE | 2024-07-09 05:01 | PC.NURSE ---
This patient, Vania Betancourt, was admitted to Intensive Care Unit-5 at 0400. Patient/family oriented to hospital policies and general routines including ID bracelet, bed and alarms, visiting hours, pain management, procedures, bathroom and other care routines, personal items, smoking policy, room service/diet, and visiting hours. Information on how to activate the Rapid Response Team has been discussed. Patient/Family are encouraged to report perceived risks to care and to ask questions if they do not understand what they are told or what they should do.
--- NOTE | 2024-07-09 05:04 | PC.NURSE ---
Heparin drip not infusing. Angiomax to infuse until current bag is finished. IVF ordered 100ml/hr for 5 hours.
--- NOTE | 2024-07-09 05:26 | PC.NURSE ---
Patient did not receive any new stents but the two that were previously there were reopened. The patient is ok with meds to bed if needed.
[2024-07-09 05:31] LABS: Cholesterol 172 mg/dL (0-200); HDL Direct 58 mg/dL; Triglycerides 49 mg/dL (<150)
[2024-07-09 05:32] LABS: Hemoglobin A1C 6.2 % (<5.7)
--- NOTE | 2024-07-09 05:35 | PC.NURSE ---
Angiomax completed at 0520.
[2024-07-09 05:42] LABS: LDL Cholesterol Direct 78 mg/dL
[2024-07-09 06:01] LABS: MRSA (PCR) NOT DETECTED (NOT DETECTE)
[2024-07-09] MEDS: LEVOTHYROXINE SODIUM 75 MCG TABLET PO (08:20)
[2024-07-09] MEDS: METOPROLOL TARTRATE 12.5 MG TABLET PO ×2 (08:23→20:12)
[2024-07-09] MEDS: TICAGRELOR 90 MG TABLET PO ×2 (08:23→20:12)
[2024-07-09] MEDS: ATORVASTATIN 40 MG TABLET 80 MG PO (08:23)
--- NOTE | 2024-07-09 09:05 | P.CONIN_ITS ---
Assessment and Plan Assessment and plan (1) ST elevation (STEMI) myocardial infarction: Code(s): I21.3 - ST elevation (STEMI) myocardial infarction of unspecified site Status: Acute Assessment and Plan: Inferior STEMI in a patient with history of coronary disease and PCI in the past. 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 Check TSH Resume levothyroxine (5) Gastroesophageal reflux disease: Code(s): K21.9 - Gastro-esophageal reflux disease without esophagitis Status: Acute Assessment and Plan: PPI (6) Chronic kidney disease: Code(s): N18.9 - Chronic kidney disease, unspecified Status: Chronic Assessment and Plan: Creatinine appears to be close to baseline. Monitor urine output electrolytes and creatinine (7) Breast cancer metastasized to liver: Qualifiers: Laterality: unspecified laterality Qualified Code(s): C50.919 - Malignant neoplasm of unspecified site of unspecified female breast; C78.7 - Secondary malignant neoplasm of liver and intrahepatic bile duct Code(s): C50.919 - Malignant neoplasm of unspecified site of unspecified female breast; C78.7 - Secondary malignant neoplasm of liver and intrahepatic bile duct Status: Chronic Assessment and Plan: Patient currently on a ibrance and anastrozole which she has not been taking regularly (8) COPD (chronic obstructive pulmonary disease): Qualifiers: COPD type: unspecified COPD Qualified Code(s): J44.9 - Chronic obstructive pulmonary disease, unspecified Code(s): J44.9 - Chronic obstructive pulmonary disease, unspecified Status: Acute Assessment and Plan: Not in exacerbation P.r.n. 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 Total Critical Care Time - 32 minutes Due to a high probability of clinically significant, life threatening deterioration, the patient required my highest level of preparedness to intervene emergently and I personally spent this critical care time directly and personally managing the patient. This critical care time included obtaining a history; examining the patient; pulse oximetry; ordering and review of studies; arranging urgent treatment with development of a management plan; evaluation of patient's response to treatment; frequent reassessment; and discussions with other providers. It was exclusive of separately billable procedures and treating other patients and teaching time. Please see Assessment and Plan section and the rest of the note for further information on patient assessment and treatment Classifier Tender Consult Note Consult date: 07/09/24 Reason for consult: STEMI HPI: Vania Betancourt is a 74 year old female with past medical history of COPD, coronary disease status post PCI in the past, breast cancer status post mastectomy and chemo radiation and noncompliance with medication presented with chief complaint of chest pain. Patient states that pain started around 12 30 in the middle of night when she was watching a TV. Pain was in the middle the chest and radiated to her jaw. Pain was 7/10 severe when she presented to the ER pain was associated with nausea vomiting and shortness of breath. Prior to she developing chest pain she was feeling fine with no complaints. Patient denies fever, cough, dysuria, hematuria, hematochezia abdominal pain,, diarrhea, headache or constipation. All other systems were reviewed and were negative. On arrival to ER patient was diagnosed with STEMI and patient was taken to cardiac catheterization lab. Patient underwent PCI of RCA and a drug-eluting stent was placed. Patient was also defibrillated x1 for VFib. Patient now admitted to ICU for further evaluation management. Patient denies any complaints at this time. She states her chest pain has resolved. Review of Systems 2 Review of Systems: All systems reviewed & are unremarkable except as noted in HPI and below (HPI) PMFSH Past Medical History Medical History Other drug-induced pancytopenia Nausea and vomiting Colon cancer screening Change in bowel habits Constipation Depression with anxiety Chronic anemia Chronic kidney disease Breast cancer metastasized to liver Cancer of right breast (1997) Status post mastectomy and chemo radiation. Metastatic disease to liver discovered in 2022. Gastroesophageal reflux disease Chronic obstructive pulmonary disease Hyperlipidemia Hypertension Coronary artery disease Breast cancer Hypothyroidism Surgical History Surgical History History of bladder repair surgery History of sinus surgery History of right mastectomy (1997) History of cholecystectomy (2012) History of appendectomy History of resection of small bowel (1979) History of coronary artery stent placement History of cardiac catheterization History of tonsillectomy Family History Family History Mother Patient's mother is Family history of diabetes mellitus in first degree relative Family history of lung cancer Family history of congestive heart failure Father Family history of malignant neoplasm, Onset Age: 73 Patient's father is Social History Social History Social History: Surrogate medical decision maker: Dixon Tomlinson, son. Code status: DNR Smoking packs per day: 0.25 Smoking cigarettes per day: 5.0 Years smoked: 50 Smoking pack-years: 12.50 Smoking status: Current every day smoker Tobacco type: cigarettes Second hand tobacco smoke exposure: Yes Additional smoking assessment comments: 1-2 cig a day presently Alcohol intake: never Substance use: never Substance use type: does not use Do You Feel Safe in your Home?: Yes Lack of Transportation: No Lack of Food: Never True Current Housing: I Have Housing Concerned About Future Housing: No Difficulty Paying Gas/Electric Bills: No Difficulty Paying for Meds: No Currently Unemployed: No Education: High School Diploma/GED Difficulty w/ Childcare or Family Care: No Living arrangements: with family Gender identity (if verbalized by the patient): Female Spiritual care concerns: No Meds Home Medications and Allergies Home Medications ?Medication ?Instructions ?Recorded ?Confirmed ?Type aspirin 81 mg tablet,delayed 81 mg PO DAILY 06/18/19 07/09/24 History release (Adult Low Dose Aspirin) anastrozole 1 mg tablet 1 mg PO DAILY 02/15/22 07/09/24 History ondansetron 4 mg disintegrating 4 mg PO Q8H PRN nausea and 12/05/23 07/09/24 Rx tablet vomiting #28 tabs bupropion HCl 150 mg 24 hr tablet, 150 mg PO QAM 30 days #90 tabs 12/21/23 07/09/24 Rx extended release potassium chloride 20 mEq 20 meq PO BID 03/01/24 07/09/24 History tablet,extended release metoprolol succinate 25 mg 25 mg PO DAILY 04/03/24 07/09/24 History tablet,extended release 24 hr palbociclib 125 mg capsule 125 mg PO DAILY 04/26/24 07/09/24 History (Ibrance) prednisone 10 mg tablet 40 mg (4 x 10 mg) PO DAILY #20 tabs 05/21/24 07/09/24 Rx amlodipine 5 mg tablet 5 mg PO DAILY #90 tabs 06/04/24 07/09/24 Rx albuterol sulfate 90 mcg/actuation See Rx Instructions .Route 07/01/24 07/09/24 Rx aerosol inhaler .COMPLEX #8.5 grams fexofenadine 180 mg tablet 180 mg PO DAILY 07/09/24 07/09/24 History (Zakiya Allergy) levothyroxine 75 mcg tablet 75 mcg PO DAILY 07/09/24 07/09/24 History linaclotide 145 mcg capsule 145 mcg PO .QOD 07/09/24 07/09/24 History (Linzess) rosuvastatin 40 mg tablet 40 mg PO HS 07/09/24 07/09/24 History Allergies Allergy/AdvReac Type Severity Reaction Status Date / Time amoxicillin Allergy Severe Anaphylactic Verified 07/09/24 01:53 Shock shellfish derived Allergy Severe itch, Verified 07/09/24 01:53 rash, SOB bacitracin Allergy Intermediate Unknown Verified 07/09/24 01:53 Iodinated Contrast Media Allergy Intermediate Swelling Verified 07/09/24 01:53 of Lip/Tongue/Throat ipratropium Allergy Intermediate rash, Verified 07/09/24 01:53 itchy, SOB latex Allergy Intermediate Hives Verified 07/09/24 01:53 neomycin (From Maxitrol Allergy Intermediate rash, Verified 07/09/24 01:53 (neomycin sulf)) blisters, hives nitrofurantoin (From Allergy Intermediate rash, Verified 07/09/24 01:53 Macrobid) itchy, SOB perfume Allergy Intermediate rash, Verified 07/09/24 01:53 hives, blisters polymyxin B (From Maxitrol Allergy Intermediate rash, Verified 07/09/24 01:53 (neomycin sulf)) blisters, hives cinnamon Allergy Nausea and Verified 07/09/24 01:53 Vomiting Sulfa (Sulfonamide AdvReac Vomiting Verified 07/09/24 07:46 Antibiotics) FRAGRANCE Allergy Severe Blister Uncoded 07/09/24 01:53 laundry soap Tide and Gain Allergy Intermediate blisters, Uncoded 07/09/24 01:53 hives, itchiness, redness, rash Vital Signs Vital Signs - 24 hr 07/09/24 01:44 07/09/24 01:48 07/09/24 01:50 Temperature 36.2 C L Pulse Rate 42 L 51 L Respiratory Rate 23 H Blood Pressure 104/42 L Pulse Oximetry 100 Oxygen Delivery Room Air Room Air 07/09/24 02:10 07/09/24 04:04 07/09/24 04:06 Temperature 36.4 C L Pulse Rate 38 L 92 89 Respiratory Rate 24 H 22 H Blood Pressure 111/99 H 130/60 Pulse Oximetry 99 Oxygen Delivery 07/09/24 04:15 07/09/24 04:30 07/09/24 04:45 Temperature Pulse Rate 86 86 86 Respiratory Rate 23 H 24 H 22 H Blood Pressure 118/57 L 127/58 L 117/55 L Pulse Oximetry Oxygen Delivery 07/09/24 05:00 07/09/24 05:35 07/09/24 06:00 Temperature Pulse Rate 85 83 82 Respiratory Rate 20 19 Blood Pressure 132/64 120/101 H Pulse Oximetry 93 92 Oxygen Delivery 07/09/24 06:00 07/09/24 06:30 07/09/24 08:00 Temperature 36.5 C Pulse Rate 82 81 80 Respiratory Rate 19 21 H 20 Blood Pressure 116/56 L 131/56 L 129/62 Pulse Oximetry 92 92 92 Oxygen Delivery 07/09/24 08:00 07/09/24 08:23 Temperature 36.2 C L Pulse Rate 80 78 Respiratory Rate 20 Blood Pressure 129/62 Pulse Oximetry 92 Oxygen Delivery Exam 2 Narrative: General: Pt is alert awake and in NAD Lungs/Chest: Trachea central Clear BS B/L, No crackles or wheezing. Cardiac: RRR. Normal S1 S2. No murmurs Circulation: Pedal pulses are intact and symmetrical. Abdomen: Normal bowel sounds.. Soft. NT. ND. Extremities: No clubbing, cyanosis or edema. Warm right groin cath site does not show any hematoma or swelling. : Wild in place Neurologic: Follows commands. Moves all 4 extremities PERRL AO x3 Skin: No Rash Results Labs 07/09/24 02:01 07/09/24 02:01 Labs: Short CBC 07/09/24 Range/Units 02:01 WBC 3.9 L (4.5-10.0) K/mm3 Hgb 10.2 L (12.0-15.0) g/dL Hct 32.4 L (37.0-47.0) % Plt Count 260 (150-375) k/mm3 BMP 07/09/24 02:01 Sodium 139 Potassium 4.3 Chloride 106 Carbon Dioxide 26 BUN 35 H Creatinine 1.39 H Glucose 117 H Calcium 8.5 Cardiac Enzymes 07/09/24 07/09/24 07/09/24 Range/Units 02:01 05:05 08:03 Troponin I < 0.012 1.570 H* D 4.640 H* D (0.000-0.034) ng/mL Liver Function 07/09/24 Range/Units 02:01 Total Bilirubin 0.3 (0.2-1.3) mg/dL AST 20 (14-36) U/L ALT 19 (6-35) U/L Alkaline Phosphatase 48 (38-126) U/L Albumin 3.7 (3.5-5.1) g/dL Quality VTE Prophylaxis VTE prophylaxis: pharmacologic ordered Hospitalist MIPS Advance Care Plan I have confirmed that the patient's Advanced Care Plan is present, code status is documented, or surrogate decision maker is listed in patient medical record.: Yes Medication Reconciliation I have utilized all available resources to obtain, update and review the patients current medications (includes all prescriptions, OTC, herbals, cannabis, and nutritional supplements).: Yes
[2024-07-09 09:37] LABS: Anion Gap 7 mmol/L (4-12); Blood Urea Nitrogen 28 mg/dL (7-17); Carbon Dioxide 24 mmol/L (22-30); Chloride 108 mmol/L (98-107); Estimated CRCL calculation 23 ml/min; Estimated Glomerular Filt Rate 47; Glucose 161 mg/dL (65-110); Magnesium 2.1 mg/dL (1.6-2.3); Sodium 139 mmol/L (137-145)
[2024-07-09] MEDS: PANTOPRAZOLE 40 MG TABLET PO (10:26)
[2024-07-09 10:50] LABS: Add Urine Microscopic? NO; Appearance Urine Clear (Clear); Bacteria Urine 1+ /hpf; Bilirubin Urine Negative (Negative); Blood Urine Non-Hemolyzed Trace (Negative); Color Urine Yellow (Yellow); Glucose Urine UA 1+ mg/dL (Negative); Ketones Urine Trace mg/dL (Negative); Leukocyte Esterase Ur Negative LEU/UL (Negative); Nitrate Urine Negative (Negative); Non Pathogenic Casts 0-2; Protein Urine Negative (Negative); Specific Grav Ur 1.034 (1.001-1.035); Squamous Epithelial Cell Urine None Seen /hpf (Few); Urobilinogen Urine 0.2 mg/dL (<2.0); WBC Urine 0-5 /hpf (0-3); pH Urine 5.5 (5.0-9.0)
--- NOTE | 2024-07-09 11:46 | P.PNCROSS_ITS ---
Event Note Event Note Event Note: Patient seen and examined. Doing well post PCI. Not having any chest pain or ot her cardiac symptoms. Continue with current plan. Agree with starting low dose Metoprolol.
--- NOTE | 2024-07-09 12:47 | PC.NURSE ---
This patient, Vania Betancourt, was transferred to [facility] on 07/09/24 at 1247. Personal belongings sent with patient. Report given to Danny Toribio. Appropriate documentation sent with patient.
--- NOTE | 2024-07-09 13:13 | P.CDI_ITS ---
CDI Query Clarification Request BMI: 15.8 Nutritional Diagnostic Statement: Please refer to the comprehensive nutrition assessment for further information. If you agree with diagnosis of Severe Protein Calorie Malnutrition as related to inadequate protein energy intake as evidenced by significant weight loss of 13 ibs (13%) 6 months; moderate muscle wasting (temporalis) and moderate subcutaneous fat loss (orbital fat pads). Please specify severity if known: * Mild * Moderate * Severe * Other/Unknown
--- NOTE | 2024-07-09 19:15 | PHAR ---
HOME MED VERIFIED IBRANCE (PALBOCICLIB) 125MG TABLET TAKE 1 TABLET DAILY
[2024-07-09] MEDS: PALBOCICLIB 125 MG PO (20:12)
[2024-07-09] MEDS: ASPIRIN 81 MG ENTERIC TABLET PO (20:12)
[2024-07-09] MEDS: IBRANCE PO (20:12)
[2024-07-09] MEDS: ACETAMINOPHEN 325 MG TABLET 650 MG PO (23:38)
[2024-07-10] VITALS (11 sets, daily range): BP systolic 112–146; BP diastolic 40–46; PULSE 57–90; RESP 12–20; TEMP 36.2–36.7; O2SAT 94–100
[2024-07-10] MEDS: LEVOTHYROXINE SODIUM 75 MCG TABLET PO (05:19)
[2024-07-10 05:27] LABS: Basophils Percent Auto 0.2 % (0.2-1.2); Eosinophils Percent Auto 0.2 % (0-4.4); Hematocrit 26.3 % (37.0-47.0); Hemoglobin 8.6 g/dL (12.0-15.0); Immature Granulocyte Percent A 1.9 % (0-0.5); Lymphocytes Absolute Auto 0.72 K/mm3 (0.9-3.2); Lymphocytes Percent Auto 13.6 % (18.3-44.2); Mean Corpuscular HGB Conc 32.7 g/dl (32-36); Mean Corpuscular Hemoglobin 32.3 pg (26-34); Mean Corpuscular Volume 98.9 fl (80-100); Mean Platelet Volume 9.9 fl (7.4-10.4); Monocytes Absolute Auto 0.2 K/mm3 (0.1-0.6); Monocytes Percent Auto 3.8 % (2.6-8.5); Neutrophils Absolute Auto 4.2 K/mm3 (1.3-6.7); Neutrophils Percent Auto 80.3 % (45.5-73.1); Platelet Count Result 227 k/mm3 (150-375); Red Blood Count 2.66 M/mm3 (4.2-5.4); Red Cell Distribution Width 16.6 % (11.5-14.5); White Blood Count 5.3 K/mm3 (4.5-10.0)
[2024-07-10 05:41] LABS: Anisocytosis 1+; Band Neutrophils Percent 0 % (0-6); Hypochromasia 1+; Ovalocytes 1+; Platelet Estimate Adequate (Adequate); Schistocytes None Seen
[2024-07-10 05:46] LABS: Alanine Aminotransferase 30 U/L (6-35); Alkaline Phosphatase 46 U/L (38-126); Anion Gap 5 mmol/L (4-12); Aspartate Amino Transferase 37 U/L (14-36); Bilirubin,Total 0.3 mg/dL (0.2-1.3); Blood Urea Nitrogen 31 mg/dL (7-17); Calcium 7.9 mg/dL (8.4-10.2); Carbon Dioxide 23 mmol/L (22-30); Chloride 106 mmol/L (98-107); Estimated CRCL calculation 24 ml/min; Estimated Glomerular Filt Rate 44; Glucose 114 mg/dL (65-110); Magnesium 2.3 mg/dL (1.6-2.3); Phosphorus 2.9 mg/dL (2.5-4.5); Potassium 4.4 mmol/L (3.4-5.0); Sodium 134 mmol/L (137-145)
[2024-07-10] MEDS: ATORVASTATIN 40 MG TABLET 80 MG PO (09:23)
[2024-07-10] MEDS: ENOXAPARIN 30 MG/0.3 ML SYRINGE SUB-Q (09:23)
[2024-07-10] MEDS: TICAGRELOR 90 MG TABLET PO (09:23)
[2024-07-10] MEDS: METOPROLOL TARTRATE 12.5 MG TABLET PO (09:23)
[2024-07-10] MEDS: PANTOPRAZOLE 40 MG TABLET PO (09:23)
[2024-07-10] MEDS: ALBUTEROL SULFATE NEB 2.5 MG/3 ML INH INHALATION (09:42)
--- NOTE | 2024-07-10 09:45 | PM.PNCARD ---
Progress Note: A&P Assessment and Plan (1) STEMI (ST elevation myocardial infarction): Code(s): I21.3 - ST elevation (STEMI) myocardial infarction of unspecified site Status: Acute Assessment and Plan: 74-year-old female with known CAD, history of remote PCI of proximal and distal RCA around 1999 at [facility] as per patient - intervention report not available; COPD, history of CA breast, tobacco abuse. Patient presented to hospital via EMS with chest pain for 2-3 hours, found to have inferior ST-elevation [place]. Coronary angiogram showed 100% thrombotic occlusion of distal RCA stented (very late stent thrombosis) with significant thrombus burden. [id number] nonobstructive disease in proximal-mid LAD. 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 Patient underwent thrombectomy using penumbra CAT Rx, followed by balloon angioplasty with sabianism of TAMMY 3 flow. The stenosis is at the bifurcation of the distal RCA, and can undergo YOEL placement or DCB angioplasty at a later time. Hyperdynamic LV systolic function on LV gram. Echocardiogram shows normal LVEF, mild MR. Dual antiplatelet therapy with aspirin and ticagrelor; high-intensity statin. Continue beta ashley. Given shortness of breath this morning, will obtain CXR. She reports she normally uses her Albuterol inhaler at home a few times a day and has not gotten it here, will resume Albuterol inhaler. If feeling better after Albuterol and CXR is clear, may be able to discharge home later this afternoon. Subjective Date/time seen: 07/10/24 09:45 Interval history: Reason for visit: STEMI HPI: 74-year-old female with known CAD, history of remote PCI of proximal and distal RCA around 1999 at [facility] as per patient-intervention report not available; COPD, history of CA breast, tobacco abuse. Patient presented to [facility] Room on 07/09/2024 with complaints of chest pain that started about 2-3 hours prior to arrival. EMS EKG on my personal interpretation showed sinus bradycardia, heart rate 39 beats per minute, ST elevation in inferior leads with reciprocal ST depression. Cardiac catheterization lab was activated for primary PCI. At the time of evaluation in the laborer orchard, patient had ongoing chest discomfort. Patient reported CAD, and history of remote PCI/stenting of RCA. Review of old medical records indicate that she had cardiac catheterization done on 08/29/2013 at [facility] which reportedly showed [id number] nonobstructive CAD, normal LVEF. Patient states that she used to follow up with Dr. Reina. Date of service 07/10: Feeling short of breath this morning. Normally takes Albuterol inhaler a few times a day at home. No chest pain. Tele stable. Review of Systems Cardiovascular: Cardiovascular: Reports as per HPI Exam Const: General: comfortable and no acute distress HENMT: Mouth: Yes moist mucous membranes Eyes: General: appearance normal, both eyes and all related structures Sclera: sclerae normal Resp: Auscultation: clear to auscultation bilaterally Other: Increased respiratory effort, on room air Cardio: Rate: regular rate Rhythm: regular rhythm Heart sounds: no murmurs Skin: General skin exam: normal color Neuro: Speech: normal speech Psych: Mental Status: mental status grossly normal Affect: normal affect Objective Data Vital Signs Vital Signs: Vital Signs - 24 hr 07/09/24 10:00 07/09/24 10:00 07/09/24 10:00 Temperature Pulse Rate 80 80 80 Respiratory Rate 25 H 25 H Blood Pressure 117/58 L 117/58 L Pulse Oximetry 95 95 Oxygen Delivery 07/09/24 12:00 07/09/24 12:00 07/09/24 12:00 Temperature 36.6 C Pulse Rate 83 82 Respiratory Rate 20 Blood Pressure 129/59 L Pulse Oximetry 96 Oxygen Delivery Room Air 07/09/24 14:00 07/09/24 15:40 07/09/24 16:00 Temperature 36.6 C Pulse Rate 75 77 78 Respiratory Rate 20 Blood Pressure 103/42 L Pulse Oximetry 93 Oxygen Delivery 07/09/24 16:00 07/09/24 18:00 07/09/24 20:00 Temperature 36.8 C Pulse Rate 78 92 Respiratory Rate 17 Blood Pressure 131/63 Pulse Oximetry 95 Oxygen Delivery Room Air 07/09/24 20:00 07/09/24 20:00 07/09/24 20:12 Temperature Pulse Rate 85 85 92 Respiratory Rate 17 Blood Pressure Pulse Oximetry 95 Oxygen Delivery Room Air 07/09/24 22:00 07/09/24 23:32 07/09/24 23:49 Temperature 36.3 C L Pulse Rate 85 83 84 Respiratory Rate 17 17 Blood Pressure 115/56 L Pulse Oximetry 94 94 Oxygen Delivery Room Air 07/09/24 23:49 07/10/24 02:00 07/10/24 04:00 Temperature 36.2 C L Pulse Rate 85 68 84 Respiratory Rate 17 Blood Pressure 112/40 L Pulse Oximetry 94 Oxygen Delivery 07/10/24 04:00 07/10/24 04:00 07/10/24 05:13 Temperature Pulse Rate 83 84 66 Respiratory Rate 17 Blood Pressure Pulse Oximetry 94 Oxygen Delivery Room Air 07/10/24 08:05 07/10/24 09:23 Temperature 36.7 C Pulse Rate 83 90 Respiratory Rate 12 Blood Pressure 133/44 L Pulse Oximetry 97 Oxygen Delivery Intake/Output Intake/Output: Intake & Output 07/07/24 07/08/24 07/09/24 07/10/24 23:59 23:59 23:59 23:59 Intake Total 609.8 240 Output Total 600 625 Balance 9.8 -385 Meds/Results Medications: Active Medications Generic Name Dose Route Start Last Admin Trade Name Freq PRN Reason Stop Dose Admin Acetaminophen 650 mg 07/09/24 11:45 07/09/24 23:38 Acetaminophen 325 Mg Tablet PO 650 mg Q6H PRN Administration Mild Pain (1-3) or Fever Albuterol 2.5 mg 07/09/24 07:36 07/10/24 09:42 Albuterol Sulfate Neb 2.5 Mg/3 Ml Inh INHALATION 2.5 mg Q4HRT PRN Administration Shortness Of Breath Albuterol 2 puff 07/10/24 09:35 Albuterol Sulfate (*Sp) Aerosol 1 Puff INHALATION Q6HRT PRN Shortness Of Breath Aspirin 81 mg 07/09/24 21:00 07/09/24 20:12 Aspirin 81 Mg Enteric Tablet PO 81 mg HS MICHAEL Administration Atorvastatin Calcium 80 mg 07/09/24 09:00 07/10/24 09:23 Atorvastatin 40 Mg Tablet PO 80 mg DAILY MICHAEL Administration Enoxaparin Sodium 30 mg 07/10/24 09:00 07/10/24 09:23 Enoxaparin 30 Mg/0.3 Ml Syringe SUB-Q 30 mg DAILY MICHAEL Administration Levothyroxine Sodium 75 mcg 07/09/24 06:30 07/10/24 05:19 Levothyroxine Sodium 75 Mcg Tablet PO 75 mcg DAILY@0630 MICHAEL Administration Metoprolol Tartrate 12.5 mg 07/09/24 09:00 07/10/24 09:23 Metoprolol Tartrate 12.5 Mg Tablet PO 12.5 mg Q12HR MICHAEL Administration Home Med ( 125 mg 07/09/24 20:00 07/09/24 20:12 Palbociclib 125 Mg PO 08/08/24 19:59 125 mg Oral Tablet) Ibrance Q24H MICHAEL Administration Ondansetron HCl 4 mg 07/09/24 11:34 07/09/24 11:42 Ondansetron Inj 4 Mg/2 Ml Vial IV PUSH 4 mg Q4H PRN Administration Nausea And Vomiting Pantoprazole Sodium 40 mg 07/09/24 09:00 07/10/24 09:23 Pantoprazole 40 Mg Tablet PO 40 mg QAM MICHAEL Administration Perflutren Lipid Microsphere 0 ml 07/09/24 04:07 Perflutren Lipid Microspheres 1.5 Ml Vial Diluted To 10 Ml Total Volume IV PUSH 07/12/24 04:08 ONCE PRN adequate visualization Protocol Ticagrelor 90 mg 07/09/24 09:00 07/10/24 09:23 Ticagrelor 90 Mg Tablet PO 90 mg Q12HR MICHAEL Administration Labs Labs: Laboratory Results - last 24 hr 07/09/24 07/10/24 10:27 04:23 WBC 5.3 RBC 2.66 L Hgb 8.6 L Hct 26.3 L MCV 98.9 MCH 32.3 MCHC 32.7 RDW 16.6 H Plt Count 227 MPV 9.9 Immature Gran % (Auto) 1.9 H Neut % (Auto) 80.3 H Lymph % (Auto) 13.6 L [place] % (Auto) 3.8 Eos % (Auto) 0.2 Baso % (Auto) 0.2 Lymph # (Auto) 0.72 L [place] # (Auto) 0.2 Eos # (Auto) 0.0 Baso # (Auto) 0.0 Abs Immat Gran (auto) 0.10 H Absolute Neuts (auto) 4.2 Absolute Nucleated RBC 0.000 Band Neutrophils % 0 Nucleated RBC % 0.0 Platelet Estimate Adequate Hypochromasia 1+ Anisocytosis 1+ Ovalocytes 1+ Schistocytes None seen Sodium 134 L Potassium 4.4 Chloride 106 Carbon Dioxide 23 Anion Gap 5 BUN 31 H Creatinine 1.20 H Estim Creat Clear Calc 24 Estimated GFR 44 L Glucose 114 H Calcium 7.9 L Phosphorus 2.9 Magnesium 2.3 Total Bilirubin 0.3 AST 37 H ALT 30 Alkaline Phosphatase 46 Total Protein 5.0 L Albumin 3.0 L Urine Color Yellow Urine Appearance Clear Urine pH 5.5 Ur Specific [place] 1.034 Urine Protein Negative Urine Glucose (UA) 1+ H Urine Ketones Trace H Ur Blood (Man) Non-hemolyzed trace H Urine Nitrate Negative Urine Bilirubin Negative Urine Urobilinogen 0.2 Leukocyte Esterase Rfl Negative Urine RBC 3-5 H Urine WBC 0-5 Ur Squamous Epith Cells None seen Urine Bacteria 1+ H Urine Casts 0-2
--- NOTE | 2024-07-10 11:58 | PM.DS ---
DS: Admitting Diagnosis Discharge Date 07/10/2024 Admitting Diagnosis STEMI DS: Discharge Diagnosis Discharge Diagnosis (1) STEMI (ST elevation myocardial infarction): Code(s): I21.3 - ST elevation (STEMI) myocardial infarction of unspecified site Status: Acute DS: Summary Hospital Course Hospital Course: 74-year-old female with known CAD, history of remote PCI of proximal and distal RCA around 1999 at [facility] as per patient - intervention report not available; COPD, history of CA breast, tobacco abuse. Patient presented to hospital via EMS with chest pain for 2-3 hours, found to have inferior ST-elevation RI. Coronary angiogram showed 100% thrombotic occlusion of distal RCA stented (very late stent thrombosis) with significant thrombus burden. Ynka-ni-qaamxloz nonobstructive disease in proximal-mid LAD. Patient had VFib cardiac arrest in the construction laborer prior to intervention, and was successfully shocked x1 with pentecostal of sinus rhythm. Patient underwent thrombectomy using penumbra CAT Rx, followed by balloon angioplasty with pentecostal of TAMMY 3 flow. The stenosis is at the bifurcation of the distal RCA, and can undergo YOEL placement or DCB angioplasty at a later time. Hyperdynamic LV systolic function on LV gram. Echocardiogram shows normal LVEF, mild MR. Dual antiplatelet therapy with aspirin and ticagrelor; high-intensity statin. Continue beta ashley. Status at Discharge Cognitive/behavioral status at discharge: Stable Functional status at discharge: independent ambulation Overall status at discharge: patient is back to baseline Time Spent with Patient Time attestation: Total time spent providing and/or coordinating discharge services: Exam Const: General: comfortable and no acute distress HENMT: Mouth: Yes moist mucous membranes Eyes: General: appearance normal, both eyes and all related structures Sclera: sclerae normal Resp: Effort & Inspection: normal respiratory effort Auscultation: clear to auscultation bilaterally Cardio: Rate: regular rate Rhythm: regular rhythm Heart sounds: no murmurs Skin: General skin exam: normal color Psych: Mental Status: mental status grossly normal Affect: normal affect DS: Data Data Completed and Pending Labs on day of discharge: Labs from last 24 hours 07/10/24 04:23 WBC 5.3 RBC 2.66 L Hgb 8.6 L Hct 26.3 L MCV 98.9 MCH 32.3 MCHC 32.7 RDW 16.6 H Plt Count 227 MPV 9.9 Immature Gran % (Auto) 1.9 H Neut % (Auto) 80.3 H Lymph % (Auto) 13.[address] [place] % (Auto) 3.8 Eos % (Auto) 0.2 Baso % (Auto) 0.2 Lymph # (Auto) 0.[address] [place] # (Auto) 0.2 Eos # (Auto) 0.0 Baso # (Auto) 0.0 Abs Immat Gran (auto) 0.10 H Absolute Neuts (auto) 4.2 Absolute Nucleated RBC 0.000 Band Neutrophils % 0 Nucleated RBC % 0.0 Platelet Estimate Adequate Hypochromasia 1+ Anisocytosis 1+ Ovalocytes 1+ Schistocytes None seen Sodium 134 L Potassium 4.4 Chloride 106 Carbon Dioxide 23 Anion Gap 5 BUN 31 H Creatinine 1.20 H Estim Creat Clear Calc 24 Estimated GFR 44 L Glucose 114 H Calcium 7.9 L Phosphorus 2.9 Magnesium 2.3 Total Bilirubin 0.3 AST 37 H ALT 30 Alkaline Phosphatase 46 Total Protein 5.0 L Albumin 3.0 L Discharge Plan Discharge Attending physician on discharge: Carlos A Miguel Consulting providers: Marcos Carmen Discharging Clinician: Carlos A Miguel Anticipated Discharge Date/Time: 07/10/24 11:55 Patient Disposition: Home Activity: july shower Diet: heart healthy Patient Instructions: Antibiotic Form, Ticagrelor (By mouth), Chest Pain (GEN) Patient Language: Nigerien Stand Alone Forms: General Discharge Information Follow-up/Referrals: Jae Forrest DO [Primary Care Provider] - Discharge Medications: New Brilinta 90 mg Tablet 90 mg PO Q12HR Qty: 180 3RF Continued Ibrance 125 mg capsule 125 mg PO DAILY Rx Instructions: administer on days 1 through 21 of a 28-day treatment cycle anastrozole 1 mg tablet 1 mg PO DAILY metoprolol succinate 25 mg tablet extended release 24 hr 25 mg PO DAILY levothyroxine 75 mcg tablet 75 mcg PO DAILY Linzess 145 mcg capsule 145 mcg PO .QOD Patient Comments: takes every other day fexofenadine [Zakiya Allergy] 180 mg tablet 180 mg PO DAILY aspirin [Adult Low Dose Aspirin] 81 mg tablet,delayed release (DR/EC) 81 mg PO DAILY Qty: 90 3RF rosuvastatin 40 mg tablet 40 mg PO HS Qty: 90 3RF ondansetron 4 mg tablet,disintegrating 4 mg PO Q8H PRN (Reason: nausea and vomiting) Qty: 28 2RF bupropion HCl 150 mg tablet extended release 24 hr 150 mg PO QAM 30 Days Qty: 90 2RF amlodipine 5 mg tablet 5 mg PO DAILY Qty: 90 1RF albuterol sulfate 90 mcg/actuation HFA aerosol inhaler See Rx Instructions .ROUTE .COMPLEX Qty: 8.5 6RF Dose Instruction: INHALE 2 PUFFS FOUR TIMES DAILY Rx Instructions: INHALE 2 PUFFS FOUR TIMES DAILY Discontinued potassium chloride 20 mEq tablet extended release 20 meq PO BID prednisone 10 mg tablet 40 mg PO DAILY Qty: 20 0RF Date of admission: 07/09/24 03:57 Primary Care Provider: Jae Forrest Admitting Provider: Thor Marquez Attending physician on admission: Thor Marquez Condition: Stable
--- NOTE | 2024-07-10 13:33 | PC.NURSE ---
Pt received her Mohitta from [facility]. They were reviewed with Pt and she had no questions.
== END 2024-07-10 14:12 | disposition home or self-care (01) | DRG 250 ==
LOC: ANHED 02:00 → ANHCATHLAB 02:01 → ANHICU 04:15 → ANHIMU 15:10 → ANHICU 07-11 15:53
PROVIDERS: Internal Medicine; Admitting Provider Internal Medicine Cardiovascular Disease; Emergency Provider Emergency Medicine; PCP Internal Medicine; Visit Provider Internal Medicine
PROC: 4A023N7 Measurement of Cardiac Sampling and Pressure, Left Heart, Percutaneous Approach (ICD-10-PCS; CPT 93452; principal; 2024-07-09 02:00)
PROC: 02703ZZ Dilation of Coronary Artery, One Artery, Percutaneous Approach (ICD-10-PCS; CPT 92973; 2024-07-09 02:00)
PROC: 02703ZZ Dilation of Coronary Artery, One Artery, Percutaneous Approach (ICD-10-PCS; CPT 92920; 2024-07-09 02:00)
PROC: 02703ZZ Dilation of Coronary Artery, One Artery, Percutaneous Approach (ICD-10-PCS; 2024-07-09 02:00)
DX: T82.867A Thrombosis due to cardiac prosthetic devices, implants and grafts, initial encounter (principal); I21.A9 Other myocardial infarction type; I46.9 Cardiac arrest, cause unspecified; I49.01 Ventricular fibrillation; C78.7 Secondary malignant neoplasm of liver and intrahepatic bile duct; I25.10 Atherosclerotic heart disease of native coronary artery without angina pectoris; J44.9 Chronic obstructive pulmonary disease, unspecified; F41.8 Other specified anxiety disorders; C50.919 Malignant neoplasm of unspecified site of unspecified female breast; D64.9 Anemia, unspecified; I12.9 Hypertensive chronic kidney disease with stage 1 through stage 4 chronic kidney disease, or unspecified chronic kidney disease; N18.9 Chronic kidney disease, unspecified; K21.9 Gastro-esophageal reflux disease without esophagitis; E78.5 Hyperlipidemia, unspecified; Z66 Do not resuscitate; Z90.49 Acquired absence of other specified parts of digestive tract; Z95.5 Presence of coronary angioplasty implant and graft; Z87.891 Personal history of nicotine dependence
CPT/HCPCS: 36415; 71045; 80048; 80053; 80061; 81003; 83036; 83735; 84100; 84443; 84484; 85025; 85610; 85730; 86850; 86900; 86901; 87641; 92920; 92973; 93005; 93306; 93458; 94640; 96361; 96374; 96375; 99285; A9270; C1725; C1757; C1760; C1769; C1887; C1894; G0269; J0461; J1200; J1644; J1650; J2003; J2250; J2305; J2371; J2405; J2919; J3010; J7030; J7040; J7120

== ENCOUNTER 2024-07-19 08:52 | Outpatient (CLI) | payer MEDICARE, SELFPAY ==
--- OUTSIDE RECORDS SUMMARY | 2024-07-19 09:04 | XMS_ITS | Clinical Summary ---
Author Organization [facility] Address [address] [place] [address] Care Team Providers Care [employer] Rep Name Role Phone Unavailable Primary Care Provider [...]
--- OUTSIDE RECORDS SUMMARY | 2024-07-19 09:04 | XMS_ITS | Clinical Summary ---
Author Organization [facility] [address] [facility] [address] Address [address] [place] [address] Care Team Providers Care Pan Dumper Name Role Phone Jae Forrest DO Primary Care Provider [phone] Allergies Active Allergy Reactions Criticality Noted Date [...] 40 mg tabletIndications: Coronary artery disease involving [place] coronary artery of [place] heart without angina pectoris Take 1 tablet [...] Tobacco abuse Coronary artery disease invo lving [place] coronary artery of [place] heart without angina pectoris 09/18/2015 Overview (06/09/2016): Coronary artery disease involving [place] coronary artery of [place] heart without angina pectoris History of myocardial infarction 09/18/2015 Overview (06/10/2016): History of myocardial infarction Palpitations 09/18/2015 Overview (06/10/2016): Palpitations Resolved Problems Problem Noted Date Diagnosed Date Resolved Date Dyslipidemia 09/18/2015 03/23/2021 Overview (06/08/2016): Dyslipidemia Encounters Date Type Department Care Team Description 07/12/2024 Orders Only [facility] Cardiology [address] [place] [address] Carlos A Miguel MD 07/10/2024 Orders Only [facility] Health Information Management [address] [place] [address] Carlos A Miguel MD 07/09/2024 Orders Only [facility] Health Information Management [address] [place] [address] Thor Marquez MD 07/09/2024 Orders Only [facility] Cardiology [address] [place] [address] Thor Marquez MD from Last 3 Months Medical History Medical History Date Comments Hypothyroidism [...] on file Legal 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 Gender Identity Not on file Sexual Orientation [...] Pneumococcal vaccine 65+ Completed 015, 01/12/2015, 01/11/2002 Procedures Procedure Name Priority Date/Time Associated Diagnosis Comments CARDIOLOGY DOCUMENT SCAN Routine 025 10:21 AM CDT SCAN - RADIOLOGY/IMAGING 07/10/2024 CARDIOLOGY DOCUMENT SCAN Routine 07/09/2024 4:45 PM CDT CARDIOLOGY DOCUMENT SCAN Routine 025 10:17 AM CDT CARDIOLOGY DOCUMENT SCAN 07/09/2024 from Last 3 Months Results * Cardiology Document Scan (07/10/2024 10:21 AM CDT) Anatomical Region Laterality Modality Other Carlos A Miguel MD CV CARDIAC SERVICES PRO CEDURES Final Result * SCAN - RADIOLOGY/IMAGING (07/10/2024) Anatomical Region Laterality Modality Other Carlos A Miguel MD Final R esult * Cardiology Document Scan (07/09/2024 4:45 PM CDT) Anatomical Region Laterality Modality Other Thor Marquez MD CV CARDIAC SERVICES PROCEDURES F inal Result * Cardiology Document Scan (07/09/2024 10:17 AM CDT) Anatomical Region Laterality Modality Other Carlos A Miguel MD CV CARDIAC SERVICES PRO CEDURES Final Result * Cardiology Document Scan (07/09/2024) Anatomical Region Laterality Modality Other Thor Marquez MD CV CARDIAC SERVICES PROCEDURES F inal Result from Last 3 Months Insurance [facility] MEDICARE MEDICARE [facility] Care Teams Pan Dumper Relationship Specialty Start Date End Date Jae Forrest DO [address] [facility] [address] [place] [address] PCP - General Internal Medicine 12/12/23
--- OUTSIDE RECORDS SUMMARY | 2024-07-19 09:04 | XMS_ITS | Clinical Summary ---
Author Organization [facility] Address [address] [facility] [place] [address] Care Team Providers Care Marine Superintendent Name Role Phone Chuckie Aiken Primary Care Provider [phone] Allergies Active Allergy Reactions Criticality Noted Date [...] daily. Active fluticasone propionate (FLONASE) 50 mcg/spray [place], Suspension nasal inhaler Administer 1 [place] in each nostril daily. Active levothyroxine 75 [...] Department Care Team Description 07/08/2024 Orders Only [facility] Oncology and Hematology - [address] [place] [phone] Noe Alatorre MD Stage 3b chronic kidney disease (CMS/HCC) 07/01/2024 Orders Only [facility] Oncology and Hematology - [place] [place] [id number] Noe Alatorre MD 06/28/2024 9:30 AM CDT Office Visit [facility] Oncology and Hematology - [place] [place] [address] Keyana Mckinney MD Stage 3b chronic kidney disease (CMS/HCC) (Primary Dx) 06/28/2024 Orders Only [facility] Oncology and Hematology - [place] [place] [address] Keyana Mckinney MD Stage 3b chronic kidney disease (CMS/HCC) (Primary Dx) 06/28/2024 Orders Only [facility] Oncology and Hematology - [address] [place] [address] Keyana Mckinney MD Stage 3b chronic kidney disease (CMS/HCC) (Primary Dx) 06/24/2024 Orders Only [facility] Oncology and Hematology - [address] [place] [address] Noe Alatorre MD Stage 3b chronic kidney disease (CMS/HCC) 06/10/2024 Orders Only [facility] Oncology and Hematology - [address] [place] [address] Noe Alatorre MD Stage 3b chronic kidney disease ([facility]/HCC) 05/27/2024 Orders Only [facility] Oncology and Hematology [facility] [address] Noe Alatorre MD Stage 3b chronic kidney disease ([facility]/HCC) 05/13/2024 Orders Only [facility] Oncology and Hematology [facility] [address] [place] [phone] Noe Alatorre MD Stage 3b chronic kidney disease ([facility]/HCC) 04/29/2024 Orders Only [facility] Oncology and Hematology [facility] [address] [place] [phone] Noe Alatorre MD Stage 3b chronic kidney disease ([facility]/HCC) 04/26/2024 10:45 AM PAPER REWINDER Office Visit [facility] Oncology and Hematology [facility] [address] [place] [phone] Noe Alatorre MD Primary malignant neoplasm of breast with metastasis ([facility]/HCC) (Primary Dx) 04/24/2024 External Device Data STL ABSTRACTION Provider, Abstract 04/22/2024 Orders Only [facility] Oncology and Hematology [facility] [address] [place] [address] Noe Alatorre MD 04/22/2024 Abstract [facility] Oncology and Hematology [facility] [address] [place] [phone] Noe Alatorre MD from Last 3 Months [...] Description 07/22/2024 9:45 AM CDT Office Visit [facility] Oncology and Hematology - [address] [facility] [address] [place] [address] Noe Alatorre MD [address] [facility] [address] [place] [address] Health Maintenance Due Date Last [...] VACCINE (#1) 2023 11/16/2015, 2014 COVID-19 Vaccine (2023-2 5 season) 2023 12/26/2021, 06/19/2021, 05/08/2020, Additional history exists Medical Devices Implanted Type Area Steel Crane Operator Device Identifier Shelf Expiration Date Model / Serial / Lot Cement-T12 Kypho-06/06/2022 Implanted:Qty: 1 on 06/06/2022 by Lucian Plaza MD Cement Spine Thoracic 09/02/2024 CX01A / / [id number] Description:Kyphon Xpede bon e cement implanted in T12 on 06/06/[address] Cement-L1 Kypho-06/06/2022 Implanted:Qty: 1 on 06/06/2022 by Lucian Plaza MD Cement Spine Lumbar 09/02/2024 CX01A / / [id number] Description:Kyphon Xpede bon e cement implanted in L1 on 06/06/[address] Plaza 2 Cardiac Stents Procedures Procedure Name Priority Date/Time Associated Diagnosis Comments CBC MIXED CELL DIFFERENTIAL Routine 06/28/2024 10:37 AM CDT CANCER ANTIGEN 15-3 Routine 06/21/2024 1 :27 PM CDT CBC MIXED CELL DIFFERENTIAL Routine 06/21/2024 11:02 AM CDT from Last 3 Months Results * CBC MIXED CELL DIFFERENTIAL (06/28/2024 10:37 AM CDT) Only the most recent of2 resultswithin the time period is included. Blood Noe Alatorre MD HEMATOLOGY ORDERABLES Final Res ult * CANCER ANTIGEN 15-3 (06/21/2024 1:27 PM CDT) Blood Noe Alatorre MD CHEMISTRY ORDERABLES Final Resu lt from Last 3 Months Insurance MEDICARE PART A AND B [employer] [facility] [id number] MEDICARE PART A AND B [employer] [facility] [id number] Advance Directives For more information, please contact: [phone] * Full Code (Latest Code Status on File) Date Activated Date Inactivated Comments 06/06/2022 12:45 PM 06/07/2022 12:11 AM Care Teams Marine Superintendent Relationship Specialty Start Date End Date Chuckie Aikne DO [address] [facility] [address] [place] [address] PCP - General Internal Medicine 09/09/21
--- OUTSIDE RECORDS SUMMARY | 2024-07-19 09:04 | XMS_ITS | Referral Summary ---
Author Organization [facility] [address] [place] [address] [address] [facility] [address] [place] [address] Care Team Providers Care Associate Doctor Name Role Phone Jae Forrest DO Primary Care Provider [phone] Encounters Date Type Department Care Team Description 07/12/2024 Orders Only [facility] Cardiology [address] [facility] [address] [place] [address] Carlos A Miguel MD 07/10/2024 Orders Only [facility] Health Information Management [address] [place] [address] Carlos A Miguel MD 07/09/2024 Orders Only [facility] Health Information Management [address] [place] [address] Thor Marquez MD 07/09/2024 Orders Only [facility] Cardiology [address] [facility] [address] [place] [address] Thor Marquez MD from Last 3 Months Allergies Active Allergy Reactions Criticality Noted Date [...] 40 mg tabletIndications: Coronary artery disease involving grayling coronary artery of grayling heart without angina pectoris Take 1 tablet [...] Tobacco abuse Coronary artery disease invo lving grayling coronary artery of grayling heart without angina pectoris 09/18/2015 Overview (06/09/2016): Coronary artery disease involving grayling coronary artery of grayling heart without angina pectoris History of myocardial [...] on file Legal 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
--- OUTSIDE RECORDS SUMMARY | 2024-07-19 09:04 | XMS_ITS | Patient Health Record ---
Author Organization [facility] Address [address] [facility] [address] [place] [address] Care Team Providers Care Ore Dressing Engineer Name Role Phone Maria Luisa Billingsley Primary Care Provider Allergies Allergen (clinical drug ingredient) Drug/Non Drug [...] tab(s) orally once a day *Reorder from [employer] for eRx and Interaction Alerts* Active Zakiya 24 Hour Allergy 180 mg 1 tab(s) orally once a day *Reorder from [employer] for eRx and Interaction Alerts* Active Simvastatin 40 mg 1 tab(s) orally once a day (at bedtime) Active Spiriva Respimat 2.5mcg/actuation as directed inhaled as directed *Pick strength-form from [employer] for eRX* 05/22/2017 Not-Taking clonazePAM 0.5 mg 1 tab(s) orally once a day Active Aspirin Enteric Coated 325 mg 1 tab(s) orally once a day *Reorder from [employer] for eRx and Interaction Alerts* Active Omeprazole 20 mg 1 cap(s) orally once a day *Pick strength-form from [employer] for eRX* Active buPROPion 300 mg/24 hours 1 tab(s) orally once a day *Reorder from [employer] for eRx and Interaction Alerts* Active Immunizations Vaccine Route Administration Date Status Comme ann Influenza (split), 3 yrs and above Unknown 01/04/2015 Administered Immunization Giv en by from source eCW:: González Influenza (split), 3 yrs and above Unknown 11/16/2015 Administered Immunization Giv en by from source eCW:: Ill. Pneumococcal polysaccharide PPV23 Unknown 01/11/2002 Administered Immunizatio n Given by from source eCW:: [place] Pneumococcal polysaccharide PPV23 Unknown 01/12/2015 Administered Immunizatio [...] Status W/U Status Risk Notes Problem Hypothyroidism (10385243) Other specified hypothyroidism (E03.8) Active confirmed Problem Tobacco user (858003812) Nicotine dependence, unspecified, uncomplicated (F17.200) Active confirmed Problem Dysthymia (46890570) Dysthymic disorder (F34.1) Active confirmed Problem Chronic ischemic heart disease (256750780) Chronic ischemic heart disease, unspecified (I25.9) Active confirmed Problem Acute exacerbation of chronic obstructive airways disease (142962911) Chronic obstructive pulmonary disease with (acute) exacerbation (J44.1) Active confirmed Problem Chronic obstructive pulmonary disease (77024069) Chronic obstructive pulmonary disease, unspecified (J44.9) Active confirmed Problem Osteoarthritis of first carpometacarpal joint (72053649) Osteoarthritis of first carpometacarpal joint, unspecified (M18.9) Active confirmed Problem Tobacco use (888706412) Tobacco use (Z72.0) Active confirmed Problem Hyperlipidemia (43003703) Other hyperlipidemia (E78.4) Active confirmed Problem Essential hypertension (39203420) Essential (primary) hypertension (I10) Active confirmed Problem Allergic rhinitis (16705159) Allergic rhinitis (J30.9) Active confirmed Plan Of [...] 196 mastectomy (RT) Hospitalization History Reason Date(Month/Year) [facility] 2012
--- OUTSIDE RECORDS SUMMARY | 2024-07-19 09:05 | XMS_ITS | Encounter Summary ---
Author Organization [facility] Address [address] [place] [address] Care Team Providers Care Shipping And Receiving Material Handler Name Role Phone Chuckie Aiken DO Primary Care Provider [phone] Encounter Details Date Type Department Care Team [...] Description 07/22/2024 9:45 AM CDT Office Visit [facility] Oncology and Hematology - [place] [facility] [address] [place] [address] Noe Alatorre MD [address] [facility] [address] [place] [address] documented as of this encounter Visit Diagnoses Diagnosis Follow-up examination following surgery- Primary documented in this encounter Care Teams Shipping And Receiving Material Handler Relationship Specialty Start Date End Date Chuckie Aiken DO [address] [facility] [address] [place] [address] PCP - General Internal Medicine 09/09/21 documented as of this encounter
[2024-07-19 10:31] LABS: Anion Gap 8 mmol/L (4-12); Blood Urea Nitrogen 31 mg/dL (7-17); Carbon Dioxide 26 mmol/L (22-30); Chloride 104 mmol/L (98-107); Estimated Glomerular Filt Rate 41; Glucose 109 mg/dL (65-110); Phosphorus 4.6 mg/dL (2.5-4.5); Potassium 4.4 mmol/L (3.4-5.0); Sodium 138 mmol/L (137-145)
[2024-07-19 10:43] LABS: Parathyroid Intact 53.6 pg/mL (14.5-75.2)
[2024-07-19 11:11] LABS: Creatinine Urine 117.4 mg/dL; Total Protein Urine Random 43 mg/dL; Ur Ttl Prot Creatinine Ratio 0.37 mg/mg (0-0.20)
== END 2024-07-19 08:53 | disposition home or self-care (01) ==
LOC: ANHLAB 08:54
PROVIDERS: PCP Internal Medicine; Visit Provider Internal Medicine Nephrology
DX: N18.32 Chronic kidney disease, stage 3b (principal)
CPT/HCPCS: 36415; 80069; 82570; 83970; 84156

== ENCOUNTER 2024-08-16 09:58 | Inpatient (IN) | payer MEDICARE, SELFPAY ==
[2024-08-16] VITALS (25 sets, daily range): BP systolic 118–150; BP diastolic 48–73; PULSE 89–107; RESP 17–24; TEMP 36.5–36.7; O2SAT 91–100; BMI 16.8
--- NOTE | ~2024-08-16 | US_ITS ---
EXAMINATION: US venous doppler [facility] DATE: 08/20/2024 17:52 INDICATION: Possible pulmonary embolus TECHNIQUE: Grayscale ultrasound images without and with compression and Doppler ultrasound images of the bilateral lower extremity veins were obtained. COMPARISON: None. FINDINGS: The visualized portions of right common femoral vein, profunda (deep) femoral vein, femoral vein, pop liteal vein, peroneal veins, posterior tibial veins, and greater saphenous vein outflow are patent. The visualized portions of left common femoral vein, profunda femoral vein, femoral vein, popliteal v ein, peroneal veins, posterior tibial veins, and greater saphenous vein outflow are patent. IMPRESSION: 1. No deep venous thrombosis. Reviewed, dictated and finalized at location A.
--- NOTE | ~2024-08-16 | XR_ITS ---
XR chest 1V portable 08/16/2024 10:30 Indication: Shortness of breath Procedure: AP portable chest Comparison: Comparison to multiple prior studies sequentially, with oldest reviewed study dated 09/27. Findings: There are surgical clips in the left thorax consistent with partial pneumonectomy. Heart si ze normal. Right lung clear. The lungs are hyperinflated which is consistent with, but not diagnostic of chronic obstructive pulmonary disease. There are vertebroplasty changes at the thoracolumbar junc tion. No pneumothorax. Impression: 1: No acute cardiopulmonary disease. Reviewed, dictated and finalized at location B. Impression: 1: No acute cardiopulmonary disease.
--- NOTE | ~2024-08-16 | CT_ITS ---
CTA chest PE protocol Ordering provider: Annalisa Small APRN History: 74 years Female with . PE . Comparison: August 18, 2024 Technique: CT angiogram chest was performed following timed intravenous injection of contrast. Thin s lice axial images and reformatted coronal images were obtained. Three dimensional reformatted images of the chest were also obtained using a [employer] workstation. . Automated exposure control and iterati ve reconstruction technique were employed. The dose-length product was 144.72 mGy-cm. 100 mL Omnipaqu e 350 was given IV. Findings: PULMONARY ARTERIES: No pulmonary embolus. VISUALIZED THORACIC INLET: Normal. MEDIASTINUM: Aorta/coronary arteries: Mild atheromatous disease. Heart/other: The heart is not enlarged. Lymph nodes: No mediastinal or hilar adenopathy. Calcified subcarinal lymph nodes. LUNGS: No pulmonary nodules or masses. No infiltrates or effusions. No pneumothorax. Underlying emphysematou s changes. VISUALIZED UPPER ABDOMEN: , the visualized upper abdomen is normal. MUSCULOSKELETAL: Soft tissues: The superficial soft tissues are normal. Bones: Compression fracture involving the superior endplate of T11 with retropulsed fragment unchange d from previous examination. Vertebroplasty of L1 and T12 is noted. Healing fracture in the sternum. Age appropriate degenerative changes of the spine. IMPRESSION: 1. No pulmonary embolism. 2. No acute cardiopulmonary pathology. 3. Compression fracture of T11 with no change from previous examination. Reviewed, dictated and finalized at location A.
--- NOTE | ~2024-08-16 | NM_ITS ---
NM lung vent and perfusion INDICATION: Shortness of breath. Positive d-dimer. TECHNIQUE: The patient inhaled aerosolized 15.2 mCi xenon-133. Following ventilation scan, 5.4 mCi T c 99m MAA was injected intravenously for perfusion images. Multiple images were then acquired. COMPARISON: Chest x-ray dated chest dated 08/16/2024 FINDINGS: The comparison chest radiograph demonstrates no pulmonary infiltrates or pleural fluid. The re is retention of tracer on washout images consistent with obstructive pulmonary disease. There are moderate-sized perfusion abnormalities of the left lower lobe and small perfusion abnormality of the right lower lobe. There is vacuum mismatches in the left lower lobe. The perfusion scan is normal. T he aerosol in images show uniform deposition throughout the lungs. IMPRESSION: 1: Intermediate probability for pulmonary embolism. Reviewed, dictated and finalized at location B.
--- NOTE | ~2024-08-16 | CT_ITS ---
CLINICAL INDICATION: Worsening leukocytosis, now with positive blood cultures. Personal history of co ronary obstructive pulmonary disease. Personal history of right-sided breast cancer post right-sided mastectomy with metastatic disease to the liver currently receiving immunotherapy. COMPARISON: 09/08/2023. TECHNIQUE: Multiple contiguous axial images of the chest was performed without the administration of intravenous contrast. This CT examination was performed utilizing dose reduction techniques. DLP: 155 mGy-cm FINDINGS/OBSERVATIONS: LUNG: Biapical scarring. Severe panlobular emphysematous disease. Post radiation change within the anterior margin of the right middle and upper lobes. No discrete pulmonary nodules or suspicious pulmonary masses. HEART: The heart is of normal size, without pericardial effusion. MEDIASTINUM: Limited evaluation without intravenous contrast. Calcified subcarinal lymph nodes suggesting prior granulomatous disease. SOFT TISSUES OF THE CHEST: Post right-sided mastectomy. BONES OF THE CHEST: Post vertebral augmentation at the levels of T12 and L1. Compression of the superior endplate of T11 is noted with dense sclerosis demonstrating progression f rom previous examination (2 views of the chest) performed 09/24/2023. No acute compression fractures. No lytic or blastic lesions are identified. IMPRESSION: Post radiation change without additional abnormality within the pulmonary parenchyma. Compression of the superior endplate of T11 with dense sclerosis demonstrating progression from the p revious examination of the chest (two-view plain film evaluation) on 09/24/2023 Reviewed, dictated and finalized at location A. IMPRESSION: Post radiation change without additional abnormality within the pulmonary paren chyma. Compression of the superior endplate of T11 with dense sclerosis demonstrating progression from the previous examination of the chest (two-view plain film chacha luation) on 09/24/2023
--- NOTE | ~2024-08-16 | XR_ITS ---
XR chest 1V portable Ordering provider: Blanco Noyola MD History: 74 years Female with . resp failure . Comparison: None. FINDINGS: MEDIASTINUM: The cardiac silhouette is not enlarged. Subcarinal calcified lymph nodes LUNGS: No infiltrates, effusions or pneumothorax. Emphysematous/fibrotic changes. OTHER: No free air under the diaphragm. Multilevel vertebroplasty. Degenerative the spine. IMPRESSION: No acute cardiopulmonary pathology. Reviewed, dictated and finalized at location A.
--- NOTE | 2024-08-16 10:04 | ECG_ITS ---
Test Date: 2024-08-16 10:30:18 Measurements Intervals Artemas Rate: 97 P: 73 PA: 174 QRS: 68 QRSD: 86 T: 60 QT: 344 QTc: 437 Interpretive Statements SINUS RHYTHM POSSIBLE LEFT ATRIAL ENLARGEMENT MINIMAL Q WAVES- INFERIOR LEADS BASELINE ARTIFACT- I, II, III, AVR, AVL, AVF, V1-V6 BORDERLINE ECG Compared to ECG 07/09/2024 04:04:24 STEMI NO LONGER PRESENT Electronically Signed On 08-16-2024 10:43:25 CDT by Vinh Zavala D.O.
--- NOTE | 2024-08-16 10:12 | ED_ITS ---
HPI - General Adult General Chief complaint: Shortness of Breath/Dyspnea Stated complaint: SOB History of Present Illness HPI narrative: 74-year-old female presented to the emergency department for evaluation for worsening shortness of breath. Patient does have a history of COPD but does not use oxygen at home typically. Patient does have history of breast cancer in 1997 but was diagnosed with metastatic breast cancer with lesions to her liver in 2021. Patient is following up Dr Alatorre. Patient did have an NC on July 09. Patient denies any current chest pain with this. Patient states that she has had worsening shortness of breath over the course of the last month but acutely worsened over the last few days. Patient does still continue to smoke. Upon arrival emergency department patient does have expiratory wheeze. Patient arrived by EMS and was treated with a breathing treatment EN route. Patient is saturating at 95% on room air. Related Data Home Medications ?Medication ?Instructions ?Recorded ?Confirmed ?Last Taken ?Type anastrozole 1 mg tablet 1 mg PO DAILY 02/15/22 08/16/24 12/20/23 07:30 History metoprolol succinate 25 mg 25 mg PO DAILY 04/03/24 08/16/24 Unknown History tablet,extended release 24 hr palbociclib 125 mg capsule 125 mg PO DAILY 04/26/24 08/16/24 Unknown History (Ibrance) fexofenadine 180 mg tablet 180 mg PO DAILY 07/09/24 08/16/24 Unknown History (Zakiya Allergy) levothyroxine 75 mcg tablet 75 mcg PO DAILY 07/09/24 08/16/24 Unknown History linaclotide 145 mcg capsule 145 mcg PO .QOD 07/09/24 08/16/24 07/07/24 09:00 History (Linzess) Allergies Allergy/AdvReac Type Severity Reaction Status Date / Time amoxicillin Allergy Severe Anaphylactic Verified 08/05/24 09:58 Shock shellfish derived Allergy Severe itch, Verified 08/05/24 09:58 rash, SOB bacitracin Allergy Intermediate Unknown Verified 08/05/24 09:58 Iodinated Contrast Media Allergy Intermediate Swelling Verified 08/05/24 09:58 of Lip/Tongue/Throat ipratropium Allergy Intermediate rash, Verified 08/05/24 09:58 itchy, SOB latex Allergy Intermediate Hives Verified 08/05/24 09:58 neomycin (From Maxitrol Allergy Intermediate rash, Verified 08/05/24 09:58 (neomycin sulf)) blisters, hives nitrofurantoin (From Allergy Intermediate rash, Verified 08/05/24 09:58 Macrobid) itchy, SOB perfume Allergy Intermediate rash, Verified 08/05/24 09:58 hives, blisters polymyxin B (From Maxitrol Allergy Intermediate rash, Verified 08/05/24 09:58 (neomycin sulf)) blisters, hives cinnamon Allergy Nausea and Verified 08/05/24 09:58 Vomiting Sulfa (Sulfonamide AdvReac Vomiting Verified 08/05/24 09:58 Antibiotics) FRAGRANCE Allergy Severe Blister Uncoded 08/05/24 09:58 laundry soap Tide and Gain Allergy Intermediate blisters, Uncoded 08/05/24 09:58 hives, itchiness, redness, rash Review of Systems 2 Review of Systems: All systems reviewed & are unremarkable except as noted in HPI and below PMFSH Past Medical History Medical History (Updated 08/16/24 @ 16:10 by Mary Babb, CASH CROP FARMER) Myocardial infarction Other drug-induced pancytopenia Nausea and vomiting Colon cancer screening Change in bowel habits Constipation Depression with anxiety Chronic anemia Chronic kidney disease Breast cancer metastasized to liver Cancer of right breast (1997) Status post mastectomy and chemo radiation. Metastatic disease to liver discovered in 2022. Gastroesophageal reflux disease Chronic obstructive pulmonary disease Hyperlipidemia Hypertension Coronary artery disease Breast cancer Hypothyroidism Surgical History Surgical History History of bladder repair surgery History of sinus surgery History of right mastectomy (1997) History of cholecystectomy (2012) History of appendectomy History of resection of small bowel (1979) History of coronary artery stent placement History of cardiac catheterization History of tonsillectomy Family History Family History Mother Patient's mother is Family history of diabetes mellitus in first degree relative Family history of lung cancer Family history of congestive heart failure Father Family history of malignant neoplasm, Onset Age: 73 Patient's father is Social History Social History Social History: Surrogate medical decision maker: Dixon Tomlinson, son. Code status: DNR Smoking packs per day: 0.25 Smoking cigarettes per day: 5.0 Years smoked: 50 Smoking pack-years: 12.50 Smoking status: Current every day smoker Tobacco type: cigarettes Second hand tobacco smoke exposure: Yes Additional smoking assessment comments: 1-2 cig a day presently Alcohol intake: never Substance use: never Substance use type: does not use Do You Feel Safe in your Home?: Yes Lack of Transportation: No Lack of Food: Never True Current Housing: I Have Housing Concerned About Future Housing: No Difficulty Paying Gas/Electric Bills: No Difficulty Paying for Meds: No Currently Unemployed: No Education: Don't Know Difficulty w/ Childcare or Family Care: No Living arrangements: with family Gender identity (if verbalized by the patient): Female Spiritual care concerns: No Exam 2 Narrative: APPEARANCE: Ill-appearing HEAD: normocephalic, atraumatic. EYES: PERRLA/EOMI, conjunctivae clear. NOSE: Normal no drainage EARS:TMS clear with good light reflex. THROAT: Pharynx clear, no exudate. NECK: Supple. No adenopathy, no masses. RESPIRATORY: Expiratory wheeze with increased work of breathing CARDIOVASCULAR: Regular rate and rhythm without murmurs rubs or gallops. ABDOMINAL: Soft, nontender, nondistended, normal bowel sounds MUSCULOSKELETAL: Moves all extremities. Strength/ROM intact, No edema, No calf tenderness. NEURO: Alert. Cranial nerves II through XII intact. Grossly intact SKIN: Warm, dry. Normal Color Course Vital Signs Vital signs: Vital Signs Pulse Rate 92 08/16/24 09:55 Respiratory Rate 18 08/16/24 09:55 Blood Pressure 136/48 L 08/16/24 09:55 Pulse Oximetry 100 08/16/24 09:55 Temperature 98.1 F 08/16/24 16:38 Pulse Rate 102 H 08/16/24 16:38 Respiratory Rate 22 H 08/16/24 16:38 Blood Pressure 140/66 08/16/24 16:38 Pulse Oximetry 95 08/16/24 16:38 Oxygen Delivery Room Air 08/16/24 10:05 Medical Decision Making [facility] Narrative Medical decision making narrative: 74-year-old female present emergency department for evaluation for worsening shortness breath over course of the last month but acutely worsening over the past 2 days. Patient is currently afebrile but does have a leukocytosis of 12.8 hemoglobin 11.0. Patient has an elevated D-dimer 0.65. CTA is not able to be ordered because patient does have an IV dye allergy. V/Q perfusion study is ordered. Patient's pH was 7.33 the ABG along with a pCO2 of 46.5 and a PO2 57 and a O2 saturation of 87.7. Patient's proBNP is mildly elevated at 389. Patient was negative influenza RSV and for COVID. Chest x-ray showed no acute cardiopulmonary abnormality. Patient is not on oxygen at home at baseline but patient was 84% with ambulation in the emergency department. Patient did have extensive wheeze on initial exam was treated with nebulized albuterol by EMS and once again to the emergency department. This did not help the patient is ambulation and oxygen status. Patient was also treated with IV Solu-Medrol and will be admitted for COPD exacerbation. Patient has blood cultures ordered also be started on Levaquin to treat for possible underlying pneumonia. Patient has medication allergies so Levaquin was chosen. Differential Diagnosis Differential Diagnosis: Pneumonia, pneumonitis, COPD, CHF, pulmonary embolism Vital Signs Vital Signs: Vital Signs Pulse Rate 92 08/16/24 09:55 Respiratory Rate 18 08/16/24 09:55 Blood Pressure 136/48 L 08/16/24 09:55 Pulse Oximetry 100 08/16/24 09:55 Temperature 98.1 F 08/16/24 16:38 Pulse Rate 102 H 08/16/24 16:38 Respiratory Rate 22 H 08/16/24 16:38 Blood Pressure 140/66 08/16/24 16:38 Pulse Oximetry 95 08/16/24 16:38 Oxygen Delivery Room Air 08/16/24 10:05 Lab Data Lab results reviewed: Yes I reviewed the patient's lab results. 08/16/24 10:54 08/16/24 10:54 Labs: Lab Results 08/16/24 08/16/24 08/16/24 Range/Units 10:22 10:42 10:54 WBC 12.8 H (4.5-10.0) K/mm3 RBC 3.34 L (4.2-5.4) M/mm3 Hgb 11.0 L (12.0-15.0) g/dL Hct 34.8 L (37.0-47.0) % MCV 104.2 H (80-100) fl MCH 32.9 (26-34) pg MCHC 31.6 L (32-36) g/dl RDW 17.5 H (11.5-14.5) % Plt Count 328 D (150-375) k/mm3 MPV 10.5 H (7.4-10.4) fl Immature Gran % (Auto) 0.4 (0-0.5) % Neut % (Auto) 73.9 H (45.5-73.1) % Lymph % (Auto) 13.1 L (18.3-44.2) % Rosebud % (Auto) 5.4 (2.6-8.5) % Eos % (Auto) 6.2 H (0-4.4) % Baso % (Auto) 1.0 (0.2-1.2) % Lymph # (Auto) 1.68 (0.9-3.2) K/mm3 Rosebud # (Auto) 0.7 H (0.1-0.6) K/mm3 Eos # (Auto) 0.8 H (0-0.3) K/mm3 Baso # (Auto) 0.1 (0.0-0.1) K/mm3 Abs Immat Gran (auto) 0.05 H (0.00-0.031) K/mm3 Absolute Neuts (auto) 9.5 H (1.3-6.7) K/mm3 Absolute Nucleated RBC 0.000 (0.0-0.012) K/mm3 Nucleated RBC % 0.0 (0.0-0.2) % PT 12.3 (11.1-14.7) Seconds INR 0.9 APTT 25.0 (22.3-36.8) Seconds D-Dimer 0.65 H (<0.48) ug/mL Methemoglobin 0.1 (0-1.5) %THb Sodium 140 (137-145) mmol/L Potassium 4.5 (3.4-5.0) mmol/L Chloride 109 H (98-107) mmol/L Carbon Dioxide 24 (22-30) mmol/L Anion Gap 7 (4-12) mmol/L BUN 22 H (7-17) mg/dL Creatinine 1.13 H (0.7-1.0) mg/dL Estim Creat Clear Calc 24 ml/min Estimated GFR 47 L (59 - ) Glucose 128 H (65-110) mg/dL Calcium 9.2 (8.4-10.2) mg/dL Total Bilirubin 0.4 (0.2-1.3) mg/dL AST 30 (14-36) U/L ALT 36 H (6-35) U/L Alkaline Phosphatase 68 (38-126) U/L NT-Pro-B Natriuret Pep 389 H (19.9-100) pg/mL Total Protein 7.1 (6.3-8.2) g/dL Albumin 4.2 (3.5-5.1) g/dL Influenza A (RT-PCR) Negative (Negative) Influenza B (RT-PCR) Negative (Negative) RSV (RT-PCR) Negative (Negative) SARS-CoV-2 RNA (RT-PCR) Negative (Negative) ABG Data ABG results: 08/16/24 10:22 Puncture Site Left radial ABG pH 7.333 L ABG pCO2 46.5 H ABG pO2 57.0 L ABG PO2/FiO2 Ratio 2.71 ABG HCO3 24.1 ABG O2 Saturation 87.7 L* ABG O2 Content 14.1 L ABG Base Excess -1.9 A-a Gradient 37.0 Oxyhemoglobin 87.2 L* Carboxyhemoglobin 2.1 H Reduced Hemoglobin 10.6 H Total Hemoglobin 11.5 L O2 Delivery Device Room air O2 Liters/Min Not Reportable FiO2 21 Imaging Data Radiologist's impression: Impressions Chest X-Ray 08/16/24 10:49 Impression: 1: No acute cardiopulmonary disease. Pulmonary Perfusion Imaging 08/16/24 14:38 IMPRESSION: 1: Intermediate probability for pulmonary embolism. ECG Data EKG #1: EKG Interpretation: normal rate, sinus rhythm, non-specific ST changes, normal QRS, normal QT and no acute changes Discharge Plan Discharge Clinical Impression: COPD (chronic obstructive pulmonary disease), Pneumonia, Hypoxia Patient Disposition: Still a Patient Condition: Stable
--- OUTSIDE RECORDS SUMMARY | 2024-08-16 10:19 | XMS_ITS | Encounter Summary ---
Author Organization [facility] Address [address] [place] [address] Care Team Providers Care Java Websphere Developer Name Role Phone Jae Forrest DO Primary Care Provider [phone] Encounter Details Date Type Department Care Team [...] Care Team (Late st Contact Info) Description 09/03/2024 11:15 AM CDT Office Visit [facility] - [place] [address] [facility] [address] [place] [address] Noe Alatorre MD [address] [facility] [address] [place] [address] documented as of this encounter Visit Diagnoses Diagnosis Follow-up examination following surgery- Primary documented in this encounter Care Teams Java Websphere Developer Relationship Specialty Start Date End Date Jae Forrest DO [address] [facility] [address] [facility] [address] [place] [address] PCP - General Internal Medicine 07/22/24 documented as of this encounter
--- OUTSIDE RECORDS SUMMARY | 2024-08-16 10:19 | XMS_ITS | Clinical Summary ---
Author Organization [facility] [address] [facility] [address] Address [address] [place] [address] Care Team Providers Care Arts [employer] Humanities Council Director Name Role Phone Jae Forrest DO Primary Care Provider [phone] Allergies Active Allergy Reactions Criticality Noted Date [...] 40 mg tabletIndications: Coronary artery disease involving [place] coronary artery of [place] heart without angina pectoris Take 1 tablet (40 mg total) by mouth daily 90 tablet 3 4 Active amLODIPine (NORVASC) 5 mg tablet Take 1 tablet (5 mg total) by mouth daily 5 Active ticagrelor (BRILINTA) 90 mg tablet Take 1 tablet (90 mg total) by mouth 2 (two) times a day Active varenicline tartrate (CHANTIX) 1 mg tabletIndications: Smoking Cessation Take 0.5 tablets (0.5 mg total) by mouth 2 (two) times a day for 7 days, THEN 1 tablet (1 mg total) 2 (two) times a day. Take with full glass of water. 60 tablet 3 5 025 Active Active Problems Problem Noted Date Diagnosed [...] Tobacco abuse Coronary artery disease invo lving [place] coronary artery of [place] heart without angina pectoris 09/18/2015 Overview (06/09/2016): Coronary artery disease involving [place] coronary artery of [place] heart without angina pectoris History of myocardial infarction 09/18/2015 Overview (06/10/2016): History of myocardial infarction Palpitations 09/18/2015 Overview (06/10/2016): Palpitations Resolved Problems Problem Noted Date Diagnosed Date Resolved Date Dyslipidemia 09/18/2015 03/23/2021 Overview (06/08/2016): Dyslipidemia Encounters Date Type Department Care Team Description 08/07/2024 11:30 AM CDT Office Visit [facility] Cardiology [address] [place] [phone] Thor Marquez MD Coronary artery disease involving [place] coronary artery of [place] heart without angina pectoris (Primary Dx); History of ST elevation myocardial infarction; History of cardiac arrest; Status post angioplasty with stent; Tobacco abuse 07/12/2024 Orders Only 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 Gender Identity Not on file Sexual Orientation Not on file Obstetrics History Last Filed Vital Signs Vital Sign Reading Time Taken Comments Blood Pressure 122/66 08/07/2024 11:58 AM CDT Pulse 76 08/07/2024 11:58 AM CDT Temperature 36.4 C (97.5 F) 06/04/2020 9:22 AM CDT Respiratory Rate - - Oxygen Saturation 92% 08/07/2024 11:58 AM CDT Inhaled Oxygen Concentration - - Weight 41.7 kg (91 lb 14.4 oz) 08/07/2024 11:58 AM CDT Height 157.5 cm (5' 2) 08/07/2024 11:58 AM CDT Body Mass Index 16.81 08/07/2024 11:58 AM CDT Plan of Treatment Health Maintenance Due [...] Procedure Name Priority Date/Time Associated Diagnosis Comments POCT LIPID PANEL Routine 08/07/2024 11:5 6 AM CDT Coronary artery disease involving [place] coronary artery of [place] heart without angina pectoris Tobacco abuse CARDIOLOGY DOCUMENT SCAN Routine 07/10/2024 10:21 AM CDT SCAN - RADIOLOGY/IMAGING 07/10/2024 CARDIOLOGY DOCUMENT SCAN Routine 07/09/2024 4:45 PM CDT CARDIOLOGY DOCUMENT SCAN Routine 07/09/2024 10:17 AM CDT CARDIOLOGY DOCUMENT SCAN 07/09/2024 from Last 3 Months Results * POCT lipid panel (08/07/2024 11:56 AM CDT) Cholesterol, POC 113 <200 MG/DL HDL, POC 59 >=40 mg/dL Triglycerides, POC 44 <=149 mg/dL LDL Cholesterol POC 45.20 <=129 mg/dL Non-HDL Cholesterol, POC 54 NONE mg/dL Cholesterol Total, POC 113 30 - 199 mg/dL Capillary blood 08/07/2024 1 1:56 AM CDT us Thor Marquez MD POINT OF CARE TEST ORDERABLES Fi nal Result * Cardiology Document Scan (07/10/2024 10:21 AM CDT) Anatomical Region Laterality Modality Other Carlos A Miguel MD CV CARDIAC SERVICES PRO CEDURES Final Result * SCAN - RADIOLOGY/IMAGING (07/10/2024) Anatomical Region Laterality Modality Other Carlos A Miguel MD Final R esult * Cardiology Document Scan (07/09/2024 4:45 PM CDT) Anatomical Region Laterality Modality Other Result [facility] Thor Marquez MD CV CARDIAC SERVICES PROCEDURES F inal Result * Cardiology Document Scan (07/09/2024 10:17 AM CDT) Anatomical Region Laterality Modality Other Carlos A Miguel MD CV CARDIAC SERVICES PRO CEDURES Final Result * Cardiology Document Scan (07/09/2024) Anatomical Region Laterality Modality Other Thor Marquez MD CV CARDIAC SERVICES PROCEDURES F inal Result from Last 3 Months Insurance [facility] MEDICARE MEDICARE [facility] Care Teams Arts And Humanities Council Director Relationship Specialty Start Date End Date Jae Forrest DO [address] [facility] [address] [place] [address] PCP - General Internal Medicine 12/12/23
--- OUTSIDE RECORDS SUMMARY | 2024-08-16 10:19 | XMS_ITS | Patient Health Record ---
Author Organization [facility] Address [address] [facility] [address] [place] [address] Care Team Providers Care Ballast Inspector Name Role Phone Maria Luisa Billingsley Primary [...] Date Status Levothyroxine 75 mcg (0.075 mg) tablet 1 tab(s) orally once a day *Reorder from [employer] for eRx and Interaction Alerts* Active Zakiya 24 Hour Allergy 180 mg tablet 1 tab(s) orally once a day *Reorder from [employer] for eRx and Interaction Alerts* Active Simvastatin 40 mg tablet 1 tab(s) orally once a day (at bedtime) Active Spiriva Respimat 2.5mcg/actuation inhaler as directed inhaled as directed *Pick strength-form from [employer] for eRX* 05/22/2017 Not-Taking clonazePAM 0.5 mg tablet 1 tab(s) orally once a day Active Aspirin Enteric Coated 325 mg delayed release tablet 1 tab(s) orally once a day *Reorder from [employer] for eRx and Interaction Alerts* Active Omeprazole 20 mg delayed release capsule 1 cap(s) orally once a day *Pick strength-form from [employer] for eRX* Active buPROPion 300 mg/24 hours tablet, extended release 1 tab(s) orally once a day *Reorder from [employer] for eRx and Interaction Alerts* Active Immunizations Vaccine Route Administration Date Status Comme ann Influenza (split), 3 yrs and above Unknown 01/04/2015 Administered Immunization Giv en by from source eCW:: González Influenza (split), 3 yrs and above Unknown 11/16/2015 Administered Immunization Giv en by from source eCW:: Ill. Pneumococcal polysaccharide PPV23 Unknown 01/11/2002 Administered Immunizatio n Given by from source eCW:: [place] Pneumococcal polysaccharide PPV23 Unknown 01/12/2015 Administered Immunizatio [...] Status W/U Status Risk Notes Problem Hypothyroidism (54063382) Other specified hypothyroidism (E03.8) Active confirmed Problem Tobacco user (845312280) Nicotine dependence, unspecified, uncomplicated (F17.200) Active confirmed Problem Dysthymia (40301574) Dysthymic disorder (F34.1) Active confirmed Problem Chronic ischemic heart disease (695027335) Chronic ischemic heart disease, unspecified (I25.9) Active confirmed Problem Acute exacerbation of chronic obstructive airways disease (547135572) Chronic obstructive pulmonary disease with (acute) exacerbation (J44.1) Active confirmed Problem Chronic obstructive pulmonary disease (46540585) Chronic obstructive pulmonary disease, unspecified (J44.9) Active confirmed Problem Osteoarthritis of first carpometacarpal joint (47111661) Osteoarthritis of first carpometacarpal joint, unspecified (M18.9) Active confirmed Problem Tobacco use (434860783) Tobacco use (Z72.0) Active confirmed Problem Hyperlipidemia (27236932) Other hyperlipidemia (E78.4) Active confirmed Problem Essential hypertension (71206133) Essential (primary) hypertension (I10) Active confirmed Problem Allergic rhinitis (03333412) Allergic rhinitis (J30.9) Active confirmed Plan Of [...] surgery tonsillectomy 1955 [facility]
--- OUTSIDE RECORDS SUMMARY | 2024-08-16 10:19 | XMS_ITS | Referral Summary ---
Author Organization [place] [address] [address] [place] [phone] Care Team Providers Care Lump Receiver Name Role Phone Jae Forrest DO Primary Care Provider [phone] Encounters Date Type Department Care Team Description 08/07/2024 11:30 AM CDT Office Visit [facility] Cardiology [address] [place] [address] [address] [place] [address] Thor Marquez MD Coronary artery disease involving [place] coronary artery of [place] heart without angina pectoris (Primary Dx); History of ST elevation myocardial infarction; History of cardiac arrest; Status post angioplasty with stent; Tobacco abuse 07/12/2024 Orders Only [facility] Cardiology [address] [place] [address] [address] [place] [address] Carlos A Miguel MD 07/10/2024 Orders Only [facility] Health Information Management [address] [place] [address] Carlos A Miguel MD 07/09/2024 Orders Only [facility] Health Information Management [address] [place] [address] hTor Marquez MD 07/09/2024 Orders Only [facility] Cardiology [address] [place] [address] [address] [place] [address] Thor Marquez MD from Last [...] on file 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 Gender Identity Not on file Sexual Orientation [...] 08/07/2024 11:58 AM CDT Plan of Treatment Not on file Procedures Procedure Name Priority Date/Time Associated Diagnosis Comments POCT LIPID PANEL Routine 08/07/2024 11:5 6 AM CDT Coronary artery disease involving [place] coronary artery of [place] heart without angina pectoris Tobacco abuse CARDIOLOGY [...] RADIOLOGY/IMAGING (07/10/2024) Anatomical Region Laterality Modality Other us Carlos A Miguel MD Final R esult * Cardiology Document Scan (07/09/2024 4:45 PM CDT) Anatomical Region Laterality Modality Other us Thor Marquez MD CV CARDIAC SERVICES PROCEDURES F inal Result * Cardiology Document Scan (07/09/2024 10:17 AM CDT) Anatomical Region Laterality Modality Other us Carlos A Miguel MD CV CARDIAC SERVICES PRO CEDURES Final Result * Cardiology Document Scan (07/09/2024) Anatomical Region Laterality Modality Other us Thor Marquez MD CV CARDIAC SERVICES PROCEDURES F inal Result from Last [address] [facility] MEDICARE MEDICARE [facility] Care Teams Lump Receiver Relationship Specialty Start Date End Date Jae Forrest DO [address] [facility] [address] [place], [place] [phone] PCP - General Internal Medicine 12/12/23
--- OUTSIDE RECORDS SUMMARY | 2024-08-16 10:19 | XMS_ITS | Clinical Summary ---
Author Organization [facility] [employer] [place] [facility] Address [address] [place] [place] [address] Care Team Providers Care Professor Of Management Name Role Phone Jae Forrest Primary Care Provider [phone] Allergies Active Allergy Reactions Criticality Noted Date [...] daily. Active fluticasone propionate (FLONASE) 50 mcg/spray [place], Suspension nasal inhaler Administer 1 [place] in each nostril daily. Active levothyroxine 75 [...] by mouth. Active predniSONE (DELTASONE) 50 mg tabletIndicati ons:Allergy, initial encounter,[place] static breast cancer Take 1 Tablet (50 mg) by mouth daily. 3 Tablet 3 Active Additional Information Patient taking differently:50 mg OralSEE ADMIN INSTRUCTIONS, For tests with iodine, Reported on 05/30/2022 calcium carbonate 500 mg-vitamin D3 5 mcg (200 unit) tablet Take 1 Tablet by mouth daily. Active midodrine (PROAMATINE) 2.5 mg Tablet 3 Active ondansetron (ZOFRAN ODT) 8 mg Tablet, Rapid DissolveIndica tions:Primary malignant neoplasm of breast with metastasis (CMS/HCC) DISSOLVE 1 TABLET ON TONGUE THEN SWALLOW WITH SALIVA EVERY 8 HOURS NEEDED FOR NAUSEA OR VOMITING 30 Tablet 3 4 Active metoprolol tartrate (LOPRESSOR) 25 mg tablet Take 25 mg by mouth 2 times daily. Active OTHER Caleitriol 1.25mcg 3xs weekly Active anastrozole (ARIMIDEX) 1 mg tablet TAKE 1 TABLET(1 MG) BY MOUTH DAILY 90 Tablet 3 4 Active prochlorperazi ne maleate (COMPAZINE) 10 mg tablet TAKE 1 TABLET(10 MG) BY MOUTH EVERY 6 HOURS NEEDED FOR NAUSEA OR VOMITING 20 Tablet 4 Active potassium chloride (KLOR-CON) 10 mEq Extended Release tablet Take 1 Tablet (10 mEq) by mouth 2 times daily with meals. 30 Tablet 4 Active ticagrelor (Brilinta) 90 mg Tablet Take 90 mg by mouth 2 times daily. Active palbociclib (Ibrance) 100 mg capsule Take 1 Capsule (100 mg) by mouth daily with breakfast. 21 Capsule 4 5 Active palbociclib (Ibrance) 125 mg capsuleIndicat ions:Primary malignant neoplasm of breast with metastasis (CMS/HCC) Take 1 Capsule (125 mg) by mouth daily with lunch for 21 days and then 7 days off. 21 Capsule 3 4 025 Discontinu ed(Alterna te therapy prescribed ) Active Problems Problem Noted Date Diagnosed Date Cancer, metastatic to bone 05/18/2022 Metastatic breast cancer 09/09/2021 Encounters Date Type Department Care Team Description 08/05/2024 Orders Only [facility] Oncology and Hematology - [place] [address] [place] [address] Noe Alatorre MD Stage 3b chronic kidney disease (CMS/HCC) 07/31/2024 Abstract [facility] Oncology [facility] Hematology - [place] [address] [place] [address] Noe Alatorre MD 07/26/2024 External Device Data [facility] ABSTRACTION Provider, Abstract 07/25/2024 External Device Data [facility] ABSTRACTION Provider, Abstract 07/24/2024 External Device Data [facility] ABSTRACTION Provider, Abstract 07/23/2024 Orders Only [facility] Oncology and Hematology - [place] [address] [place] [address] Noe Alatorre MD 07/22/2024 9:45 AM CDT Office Visit [facility] On[facility] and Hematology - [place] [address] [place] [address] Noe Alatorre MD Primary malignant neoplasm of breast with metastasis (CMS/HCC) (Primary Dx); Stage 3b chronic kidney disease (CMS/HCC) 07/22/2024 Orders Only [facility] Oncology and Hematology - [place] [address] [place] [address] Noe Alatorre MD 07/08/2024 Orders Only [facility] Oncology and Hematology - [id number] Noe Alatorre MD Stage 3b chronic kidney disease (CMS/HCC) 07/01/2024 Orders Only [facility] Oncology [facility] Hematology [facility] [address] [place] [id number] Noe Alatorre MD 06/28/2024 9:30 AM CDT Office Visit [facility] On[facility] H[facility] [address] [place] [phone] Keyana Mckinney MD Stage 3b chronic kidney disease (CMS/HCC) (Primary Dx) 06/28/2024 Orders Only [facility] Oncology and Hematology [facility] [address] [place] [id number] Keyana Mckinney MD Stage 3b chronic kidney disease (CMS/HCC) (Primary Dx) 06/28/2024 Orders Only [facility] Oncology and Hematology [facility] [address] [place] [phone] Keyana Mckinney MD Stage 3b chronic kidney disease (CMS/HCC) (Primary Dx) 06/24/2024 Orders Only [facility] Oncology [facility] Hematology [facility] [address] [place] [id number] Noe Alatorre MD Stage 3b chronic kidney disease (CMS/HCC) 06/10/2024 Orders Only [facility] Oncology and Hematology [address] [place] [phone] Noe Alatorre MD Stage 3b chronic kidney disease (CMS/HCC) 05/27/2024 Orders Only [facility] Oncology and Hematology [facility] [address] [place] [address] Noe Alatorre MD Stage 3b chronic kidney disease (CMS/HCC) from Last 3 Months Immunizations Immunization Administration Dates Next Due ([employer]) COVID-19 VACCINE - EMERGENCY USE AUTHORIZATION, AD26,COV2S(PF) [...] Sign Reading Time Taken Comments Blood Pressure 101/50 07/22/2024 9:32 AM CDT Pulse 74 07/22/2024 9:32 AM CDT Temperature 36.3 C (97.4 F) 07/22/2024 9:32 AM CDT Respiratory Rate 15 07/22/2024 9:32 AM CDT Oxygen Saturation 97% 07/22/2024 9:32 AM CDT Inhaled Oxygen Concentration - - Weight 41.2 kg (90 lb 12.8 oz) 07/22/2024 9:32 A M CDT Height 157.5 cm (5' 2) 09/21/2022 1:05 PM CDT Body Mass Index 16.61 09/21/2022 1:05 PM CDT Plan of Treatment Upcoming Encounters Date Type Department Care Team (Late st Contact Info) Description 09/03/2024 11:15 AM CDT Office Visit [facility] Oncology and Hematology - [place] [address] [facility] [address] [place] [address] Noe Alatorre MD [address] [facility] [address] [place] [address] Health Maintenance Due Date Last [...] history exists Medical Devices Implanted Type Area Instrument And Control Technician Device Identifier Shelf Expiration Date Model / Serial / Lot Cement-T12 Kypho-06/06/2022 Implanted:Qty: 1 on 06/06/2022 by Lucian Plaza MD Cement Spine Thoracic 09/02/2024 CX01A / / [id number] Description:Kyphon Xpede bon e cement implanted in T12 on 06/06/[address] Plaza Cement-L1 Kypho-06/06/2022 Implanted:Qty: 1 on 06/06/2022 by Lucian Plaza MD Cement Spine Lumbar 09/02/2024 CX01A / / [id number] Description:Kyphon Xpede bon e cement implanted in L1 on 06/06/[address] Plaza 2 Cardiac Stents Procedures Procedure Name Priority Date/Time Associated Diagnosis Comments COMPREHENSIVE METABOLIC PANEL Routine 07/19/2024 3:18 PM CDT CANCER ANTIGEN 15-3 Routine 07/19/2024 1 0:51 AM CDT CBC MIXED CELL DIFFERENTIAL Routine 06/28/2024 10:37 AM CDT CANCER ANTIGEN 15-3 Routine 06/21/2024 1 :27 PM CDT CBC MIXED CELL DIFFERENTIAL Routine 06/21/2024 11:02 AM CDT from Last 3 Months Results * COMPREHENSIVE METABOLIC PANEL (07/19/2024 3:18 PM CDT) Blood us Noe Alatorre MD CHEMISTRY ORDERABLES Final Resu lt * CANCER ANTIGEN 15-3 (07/19/2024 10:51 AM CDT) Only the most recent of2 resultswithin the time period is included. Blood us Noe Alatorre MD CHEMISTRY ORDERABLES Final Resu lt * CBC MIXED CELL DIFFERENTIAL (06/28/2024 10:37 AM CDT) Only the most recent of2 resultswithin the time period is included. Blood us Noe Alatorre MD HEMATOLOGY ORDERABLES Final Res ult from Last 3 Months Insurance MEDICARE PART A AND B [facility] [id number] MEDICARE PART A AND B [facility] [id number] Advance Directives For more information, please contact: [phone] * Full Code (Latest Code Status on File) Date Activated Date Inactivated Comments 06/06/2022 12:45 PM 06/07/2022 12:11 AM Care Teams Professor Of Management Relationship Specialty Start Date End Date Jae Forrest DO [address] [facility] [address] [place] [phone] PCP - General Internal Medicine 07/22/24
[2024-08-16] MEDS: ALBUTEROL SULFATE NEB 2.5 MG/3 ML INH 5 MG INHALATION (10:21)
[2024-08-16] MEDS: methylPREDNISolone SOD SUCC 125 MG VIAL IV PUSH (10:30)
[2024-08-16 10:38] LABS: Base Excess ABG -1.9 mEq/l (+/-2.0); Carboxyhemoglobin 2.1 % THb (0-2.0); Fractional Inspired Oxygen 21 %; HCO3 ABG 24.1 mEq/l (22.0-26.0); Methemoglobin ABG 0.1 %THb (0-1.5); Oxygen Content ABG 14.1 %vol (16.0-22.0); Oxygen Saturation ABG 87.7 % (95.0-100.0); Oxyhemoglobin 87.2 % THb (90.0-100.0); PCO2 ABG 46.5 mmHg (35.0-45.0); PO2 FiO2 Ratio Arterial Blood 2.71 %; Reduced Hemoglobin 10.6 %THb (0-5.0); Site Drawn LEFT RADIAL; Total Hemoglobin 11.5 g/dL (12.0-18.0); pH ABG 7.333 (7.350-7.450)
[2024-08-16 10:39] LABS: Device ROOM AIR; Modified Allen's Test Pass
[2024-08-16 10:59] LABS: Basophils Absolute Auto 0.1 K/mm3 (0.0-0.1); Eosinophils Absolute Auto 0.8 K/mm3 (0-0.3); Eosinophils Percent Auto 6.2 % (0-4.4); Hematocrit 34.8 % (37.0-47.0); Immature Granulocyte Absolute 0.05 K/mm3 (0.00-0.031); Immature Granulocyte Percent A 0.4 % (0-0.5); Lymphocytes Absolute Auto 1.68 K/mm3 (0.9-3.2); Lymphocytes Percent Auto 13.1 % (18.3-44.2); Mean Corpuscular HGB Conc 31.6 g/dl (32-36); Mean Corpuscular Hemoglobin 32.9 pg (26-34); Mean Corpuscular Volume 104.2 fl (80-100); Mean Platelet Volume 10.5 fl (7.4-10.4); Monocytes Absolute Auto 0.7 K/mm3 (0.1-0.6); Monocytes Percent Auto 5.4 % (2.6-8.5); Neutrophils Absolute Auto 9.5 K/mm3 (1.3-6.7); Neutrophils Percent Auto 73.9 % (45.5-73.1); Platelet Count Result 328 k/mm3 (150-375); Red Blood Count 3.34 M/mm3 (4.2-5.4); Red Cell Distribution Width 17.5 % (11.5-14.5); White Blood Count 12.8 K/mm3 (4.5-10.0)
[2024-08-16 11:12] LABS: Alanine Aminotransferase 36 U/L (6-35); Albumin Level 4.2 g/dL (3.5-5.1); Alkaline Phosphatase 68 U/L (38-126); Anion Gap 7 mmol/L (4-12); Aspartate Amino Transferase 30 U/L (14-36); Bilirubin,Total 0.4 mg/dL (0.2-1.3); Blood Urea Nitrogen 22 mg/dL (7-17); Calcium 9.2 mg/dL (8.4-10.2); Carbon Dioxide 24 mmol/L (22-30); Chloride 109 mmol/L (98-107); Estimated CRCL calculation 24 ml/min; Estimated Glomerular Filt Rate 47; Glucose 128 mg/dL (65-110); INR 0.9; Potassium 4.5 mmol/L (3.4-5.0); Prothrombin Time 12.3 Seconds (11.1-14.7); Sodium 140 mmol/L (137-145); Total Protein 7.1 g/dL (6.3-8.2)
[2024-08-16 11:21] LABS: NT Pro B Type Natriuretic Pept 389 pg/mL (19.9-100)
[2024-08-16 11:22] LABS: D Dimer 0.65 ug/mL (<0.48)
[2024-08-16 11:29] LABS: Influenza A QL RT-PCR Negative (Negative); Influenza B QL RT-PCR Negative (Negative); RSV RNA, RT-PCR Negative (Negative); SARS-CoV-2 RNA PCR Negative (Negative)
--- NOTE | 2024-08-16 13:16 | PC.NURSE ---
patient ambulated, o2 saturation dropped to 83, heart rate increased to 110
--- NOTE | 2024-08-16 13:47 | PC.NURSE ---
patient is a difficult stick, requiring phlebotomy earlier today - tech is going to attempt to draw the blood cultures at this time
[2024-08-16] MEDS: levoFLOXacin 750 MG/D5W 150 ML 750 MG/150 ML BAG 100 MG IVPB (14:10)
--- NOTE | 2024-08-16 14:17 | PC.NURSE ---
patient does not want to get a straight cath for urine sample, and states that she will give a urine sample after she gets some water because she hasn't eaten or drank anything since yesterday morning
--- NOTE | 2024-08-16 14:58 | PC.NURSE ---
IV infiltrated causing an extravasation while infusing the levaquin. IV stopped, and removed, ice placed on site. Spoke with Ivon in pharmacy about levaquin extravasation. Ivon stated that there is no specific antidote for Levaquin, to monitor site and alert EDP.
--- NOTE | 2024-08-16 15:35 | P.HP_ITS ---
H&P: HPI History of Present Illness Date/Time: 08/16/24 15:35 Chief Complaint: Shortness of breath Narrative: 74-year-old female with past medical history of breast cancer with metastases to the liver, current smoker, COPD and a CO 1 month ago presents the hospital with increased shortness of breath. Productive cough. Patient did have a myocardial function on the 6. Currently she denies chest pain. She states that the shortness of breath has been increasing since then and worse over the last 2 days. In the emergency room she had expiratory wheezes. Patient denies fever or chills. SpO2 84% on room air. In the ED her lab work shows leukocytosis at 12.8, anemia hemoglobin 11, elevated D dimer is 0.65, ABG with a pH is 7.33, pCO2 of 47.5, PO2 of 57, on room air, BUN of 22 creatinine of 1.13 which is around baseline, proBNP of 389, influenza A/B, RSV and COVID negative. Chest x-ray shows no cardiopulmonary disease. Due to patient's contrast allergy she had a a V/Q scan that showed intermittent in probability for pulmonary embolism and was started on weight based Lovenox. She is being admitted for COPD exacerbation with acute on chronic respiratory failure with hypoxemia and hypercarbia with possible PE. Review of Systems Review of Systems: 12 systems were reviewed and are negativ e except for as per HPI. [facility] Past Medical History Medical History (Updated 08/16/24 @ 16:10 by Mary Babb, MATERIAL HANDLER) Myocardial infarction Other drug-induced pancytopenia Nausea and vomiting Colon cancer screening Change in bowel habits Constipation Depression with anxiety Chronic anemia Chronic kidney disease Breast cancer metastasized to liver Cancer of right breast (1997) Status post mastectomy and chemo radiation. Metastatic disease to liver discovered in 2022. Gastroesophageal reflux disease Chronic obstructive pulmonary disease Hyperlipidemia Hypertension Coronary artery disease Breast cancer Hypothyroidism Surgical History Surgical History History of bladder repair surgery History of sinus surgery History of right mastectomy (1997) History of cholecystectomy (2012) History of appendectomy History of resection of small bowel (1979) History of coronary artery stent placement History of cardiac catheterization History of tonsillectomy Family History Family History Mother Patient's mother is Family history of diabetes mellitus in first degree relative Family history of lung cancer Family history of congestive heart failure Father Family history of malignant neoplasm, Onset Age: 73 Patient's father is Social History Social History Social History: Surrogate medical decision maker: Dixon Tomlinson, son. Code status: DNR Smoking packs per day: 0.25 Smoking cigarettes per day: 5.0 Years smoked: 50 Smoking pack-years: 12.50 Smoking status: Current every day smoker Tobacco type: cigarettes Second hand tobacco smoke exposure: Yes Additional smoking assessment comments: 1-2 cig a day presently Alcohol intake: never Substance use: never Substance use type: does not use Do You Feel Safe in your Home?: Yes Lack of Transportation: No Lack of Food: Never True Current Housing: I Have Housing Concerned About Future Housing: No Difficulty Paying Gas/Electric Bills: No Difficulty Paying for Meds: No Currently Unemployed: No Education: Don't Know Difficulty w/ Childcare or Family Care: No Living arrangements: with family Gender identity (if verbalized by the patient): Female Spiritual care concerns: No Meds Home Medications and Allergies Home Medications ?Medication ?Instructions ?Recorded ?Confirmed ?Type anastrozole 1 mg tablet 1 mg PO DAILY 02/15/22 08/16/24 History ondansetron 4 mg disintegrating 4 mg PO Q8H PRN nausea and 12/05/23 08/16/24 Rx tablet vomiting #28 tabs bupropion HCl 150 mg 24 hr tablet, 150 mg PO QAM 30 days #90 tabs 12/21/23 08/16/24 Rx extended release metoprolol succinate 25 mg 25 mg PO DAILY 04/03/24 08/16/24 History tablet,extended release 24 hr palbociclib 125 mg capsule 125 mg PO DAILY 04/26/24 08/16/24 History (Ibrance) amlodipine 5 mg tablet 5 mg PO DAILY #90 tabs 06/04/24 08/16/24 Rx fexofenadine 180 mg tablet 180 mg PO DAILY 07/09/24 08/16/24 History (Zakiya Allergy) levothyroxine 75 mcg tablet 75 mcg PO DAILY 07/09/24 08/16/24 History linaclotide 145 mcg capsule 145 mcg PO .COMPLEX 07/09/24 08/16/24 History (Linzess) ticagrelor 90 mg tablet (Brilinta) 90 mg PO Q12HR #180 tabs 07/09/24 08/16/24 Rx aspirin 81 mg tablet,delayed 81 mg PO DAILY #90 tabs 07/10/24 08/16/24 Rx release (Adult Low Dose Aspirin) rosuvastatin 40 mg tablet 40 mg PO HS #90 tabs 07/10/24 08/16/24 Rx albuterol sulfate 90 mcg/actuation See Rx Instructions .Route 08/02/24 08/16/24 Rx aerosol inhaler .COMPLEX #8.5 grams clonazepam 0.5 mg tablet 0.5 mg PO HS 08/16/24 08/16/24 History Allergies Allergy/AdvReac Type Severity Reaction Status Date / Time amoxicillin Allergy Severe Anaphylactic Verified 08/05/24 09:58 Shock shellfish derived Allergy Severe itch, Verified 08/05/24 09:58 rash, SOB bacitracin Allergy Intermediate Unknown Verified 08/05/24 09:58 Iodinated Contrast Media Allergy Intermediate Swelling Verified 08/05/24 09:58 of Lip/Tongue/Throat ipratropium Allergy Intermediate rash, Verified 08/05/24 09:58 itchy, SOB latex Allergy Intermediate Hives Verified 08/05/24 09:58 neomycin (From Maxitrol Allergy Intermediate rash, Verified 08/05/24 09:58 (neomycin sulf)) blisters, hives nitrofurantoin (From Allergy Intermediate rash, Verified 08/05/24 09:58 Macrobid) itchy, SOB perfume Allergy Intermediate rash, Verified 08/05/24 09:58 hives, blisters polymyxin B (From Maxitrol Allergy Intermediate rash, Verified 08/05/24 09:58 (neomycin sulf)) blisters, hives cinnamon Allergy Nausea and Verified 08/05/24 09:58 Vomiting Sulfa (Sulfonamide AdvReac Vomiting Verified 08/05/24 09:58 Antibiotics) FRAGRANCE Allergy Severe Blister Uncoded 08/05/24 09:58 laundry soap Tide and Gain Allergy Intermediate blisters, Uncoded 08/05/24 09:58 hives, itchiness, redness, rash Vital Signs Vital Signs - 24 hr 08/16/24 09:55 08/16/24 10:05 08/16/24 10:34 Pulse Rate 92 96 Respiratory Rate 18 22 H Blood Pressure 136/48 L Pulse Oximetry 100 100 Oxygen Delivery Room Air 08/16/24 10:58 08/16/24 12:48 08/16/24 13:19 Pulse Rate 95 95 Respiratory Rate 22 H 19 Blood Pressure Pulse Oximetry 91 97 Oxygen Delivery 08/16/24 13:54 08/16/24 14:05 08/16/24 14:07 Pulse Rate 97 96 98 Respiratory Rate 24 H 23 H 18 Blood Pressure 146/60 H 146/60 H Pulse Oximetry 92 92 Oxygen Delivery 08/16/24 14:15 08/16/24 14:16 08/16/24 14:35 Pulse Rate 97 100 100 Respiratory Rate 19 17 18 Blood Pressure 118/73 Pulse Oximetry 91 92 Oxygen Delivery 08/16/24 14:59 08/16/24 15:01 08/16/24 15:15 Pulse Rate 96 96 96 Respiratory Rate 20 22 H 20 Blood Pressure Pulse Oximetry Oxygen Delivery Exam Narrative: General: Chronically ill-appearing malnourished. HEENT: normocephalic, atraumatic. Mucous membranes moist. EOMI, PERRLA, bila teral sclera anicteric, no conjunctival injection. Neck supple without JVD, lymphadenopathy, or bruit. Respiratory: clear demented to ascultation bilaterally. No rales/rhonic/wheezes. Cardiovascular: Regular rate and rhythm, normal S1-S2 upon ascultation. No murmurs, rubs, or clicks. PMI is nondisplaced, capillary refill less than 3 second. Abdomen: Soft, round, no pulsatile masses, nondistended and nontender. No rebound, no guarding. No CVA tenderness, no hepatosplenomegaly. Bowel sounds present to all four quadrants. No high pitch or tinkling sounds, resonant to percussion. Extremities: No cyanosis, clubbing, or edema present. Pulses are palpable 2/2. Active ROM to all four extremities. Neuro: Alert and orientated x 4. PERRLA. Cranial nerves 2-12 intact without focal deficit. Skin: Warm, dry, and intact, without rash, erythema, or lesion. Psych: pleasant, cooperative, normal speech, normal affect, no hallucinations, no dysarthia H&P: Results Labs Labs: Short CBC 08/16/24 Range/Units 10:54 WBC 12.8 H (4.5-10.0) K/mm3 Hgb 11.0 L (12.0-15.0) g/dL Hct 34.8 L (37.0-47.0) % Plt Count 328 D (150-375) k/mm3 BMP 08/16/24 10:54 Sodium 140 Potassium 4.5 Chloride 109 H Carbon Dioxide 24 BUN 22 H Creatinine 1.13 H Glucose 128 H Calcium 9.2 Liver Function 08/16/24 Range/Units 10:54 Total Bilirubin 0.4 (0.2-1.3) mg/dL AST 30 (14-36) U/L ALT 36 H (6-35) U/L Alkaline Phosphatase 68 (38-126) U/L Albumin 4.2 (3.5-5.1) g/dL Assessment and Plan Assessment and plan (1) COPD exacerbation: Code(s): J44.1 - Chronic obstructive pulmonary disease with (acute) exacerbation Status: Acute Assessment and Plan: Gloria Mo Solu-Medrol Levofloxacin Robitussin (2) Acute respiratory failure with hypoxia and hypercarbia: Code(s): J96.01 - Acute respiratory failure with hypoxia; J96.02 - Acute respiratory failure with hypercapnia Status: Acute Assessment and Plan: Acute on chronic Wean oxygen as able See above (3) Pulmonary embolism: Code(s): I26.99 - Other pulmonary embolism without acute cor pulmonale Status: Acute Assessment and Plan: Renally dosed weight based Lovenox 40 mg given in ED Patient is also on Brilinta, monitor patient for bleeding (4) Stage 3b chronic kidney disease: Code(s): N18.32 - Chronic kidney disease, stage 3b Status: Chronic Assessment and Plan: Renally dose medications (5) Chronic anemia: Code(s): D64.9 - Anemia, unspecified Status: Chronic Assessment and Plan: No signs of acute bleeding Transfuse for hemoglobin less than 7 or symptomatic Daily CBC No need for transfusion at this time (6) Breast cancer metastasized to liver: Qualifiers: Laterality: unspecified laterality Qualified Code(s): C50.919 - Malignant neoplasm of unspecified site of unspecified female breast; C78.7 - Secondary malignant neoplasm of liver and intrahepatic bile duct Code(s): C50.919 - Malignant neoplasm of unspecified site of unspecified female breast; C78.7 - Secondary malignant neoplasm of liver and intrahepatic bile duct Status: Chronic Assessment and Plan: Continue ibrance patient bring from home (7) Hypertension: Code(s): I10 - Essential (primary) hypertension Status: Chronic Assessment and Plan: Continue amlodipine (8) Hypothyroidism: Code(s): E03.9 - Hypothyroidism, unspecified Status: Chronic Assessment and Plan: Continue home levothyroxine TSH within normal limits last month (9) Myocardial infarction: Code(s): I21.9 - Acute myocardial infarction, unspecified Status: Acute Assessment and Plan: 1 month ago Continue Brilinta and aspirin and metoprolol Quality VTE Prophylaxis VTE prophylaxis: mechanical ordered and pharmacologic ordered Hospitalist MIPS Advance Care Plan I have confirmed that the patient's Advanced Care Plan is present, code status is documented, or surrogate decision maker is listed in patient medical record.: Yes Medication Reconciliation I have utilized all available resources to obtain, update and review the patients current medications (includes all prescriptions, OTC, herbals, cannabis, and nutritional supplements).: Yes
--- NOTE | 2024-08-16 16:16 | ADMGEN ---
This patient, Vania Betancourt, was admitted to IMU Room 201-01. Patient/family oriented to hospital policies and general routines including ID bracelet, bed and alarms, visiting hours, pain management, procedures, bathroom and other care routines, personal items, smoking policy, room service/diet, and visiting hours. Information on how to activate the Rapid Response Team has been discussed. Patient/Family are encouraged to report perceived risks to care and to ask questions if they do not understand what they are told or what they should do.
[2024-08-16 16:45] LABS: Add Urine Microscopic? YES; Appearance Urine Clear (Clear); Bacteria Urine None Seen /hpf; Bilirubin Urine Negative (Negative); Blood Urine Negative (Negative); Color Urine Yellow (Yellow); Glucose Urine UA Negative (Negative); Ketones Urine Trace mg/dL (Negative); Leukocyte Esterase Ur 1+ LEU/UL (Negative); Nitrate Urine Negative (Negative); Protein Urine 1+ mg/dL (Negative); RBC Urine 0-2 /hpf (0-2); Specific Grav Ur 1.018 (1.001-1.035); Squamous Epithelial Cell Urine None Seen /hpf (Few); Urobilinogen Urine 0.2 mg/dL (<2.0)
[2024-08-16] MEDS: ENOXAPARIN 40 MG/0.4 ML SYRINGE SUB-Q (18:28)
[2024-08-16] MEDS: methylPREDNISolone SOD SUCC 125 MG VIAL 60 MG IV PUSH ×2 (18:29→23:47)
[2024-08-16] MEDS: ACETAMINOPHEN 325 MG TABLET 650 MG PO ×2 (18:30→23:59)
[2024-08-16] MEDS: ALBUTEROL SULFATE NEB 2.5 MG/3 ML INH INHALATION (20:30)
[2024-08-16] MEDS: guaiFENesin/DEXTROMETHORPHAN 10 ML UDC PO (21:22)
[2024-08-16] MEDS: TICAGRELOR 90 MG TABLET PO (21:22)
[2024-08-16] MEDS: ASPIRIN 81 MG ENTERIC TABLET PO (23:45)
[2024-08-16] MEDS: amLODIPine BESYLATE 5 MG TABLET PO (23:45)
[2024-08-16] MEDS: buPROPion HCL XL (24 HR) 150 MG TABCR PO (23:45)
[2024-08-16] MEDS: METOPROLOL SUCCINATE EXT REL 25 MG TABCR PO (23:46)
[2024-08-16] MEDS: ROSUVASTATIN 20 MG TABLET 40 MG PO (23:47)
[2024-08-16] MEDS: clonazePAM (*CRX) 0.5 MG TABLET PO (23:47)
[2024-08-17] VITALS (18 sets, daily range): BP systolic 96–130; BP diastolic 37–47; PULSE 79–106; RESP 16–20; TEMP 36.6–37.1; O2SAT 90–97
[2024-08-17] MEDS: guaiFENesin/DEXTROMETHORPHAN 10 ML UDC PO ×6 (00:01→21:16)
[2024-08-17] MEDS: ALBUTEROL SULFATE NEB 2.5 MG/3 ML INH INHALATION ×4 (01:51→22:13)
[2024-08-17 04:27] LABS: Basophils Percent Auto 0.1 % (0.2-1.2); Hematocrit 28.8 % (37.0-47.0); Hemoglobin 9.2 g/dL (12.0-15.0); Immature Granulocyte Absolute 0.09 K/mm3 (0.00-0.031); Lymphocytes Absolute Auto 0.46 K/mm3 (0.9-3.2); Mean Corpuscular HGB Conc 31.9 g/dl (32-36); Mean Corpuscular Volume 103.2 fl (80-100); Mean Platelet Volume 10.9 fl (7.4-10.4); Monocytes Absolute Auto 0.1 K/mm3 (0.1-0.6); Monocytes Percent Auto 0.6 % (2.6-8.5); Neutrophils Absolute Auto 8.7 K/mm3 (1.3-6.7); Neutrophils Percent Auto 93.3 % (45.5-73.1); Platelet Count Result 276 k/mm3 (150-375); Red Blood Count 2.79 M/mm3 (4.2-5.4); Red Cell Distribution Width 17.4 % (11.5-14.5); White Blood Count 9.3 K/mm3 (4.5-10.0)
[2024-08-17 05:08] LABS: Anion Gap 6 mmol/L (4-12); Blood Urea Nitrogen 25 mg/dL (7-17); Calcium 8.5 mg/dL (8.4-10.2); Carbon Dioxide 25 mmol/L (22-30); Chloride 103 mmol/L (98-107); Estimated CRCL calculation 24 ml/min; Estimated Glomerular Filt Rate 45; Glucose 150 mg/dL (65-110); Potassium 4.3 mmol/L (3.4-5.0); Sodium 134 mmol/L (137-145)
[2024-08-17] MEDS: LEVOTHYROXINE SODIUM 75 MCG TABLET PO (05:31)
[2024-08-17] MEDS: methylPREDNISolone SOD SUCC 125 MG VIAL 60 MG IV PUSH (05:31)
[2024-08-17] MEDS: ACETAMINOPHEN 325 MG TABLET 650 MG PO ×2 (05:35→21:16)
--- NOTE | 2024-08-17 08:13 | P.PNIM_ITS ---
Progress Note: A&P Assessment and Plan (1) COPD exacerbation: Code(s): J44.1 - Chronic obstructive pulmonary disease with (acute) exacerbation Status: Acute Assessment and Plan: Gloria Mo Solu-Medvi Levofloxacin Robitussin (2) Acute respiratory failure with hypoxia and hypercarbia: Code(s): J96.01 - Acute respiratory failure with hypoxia; J96.02 - Acute respiratory failure with hypercapnia Status: Acute Assessment and Plan: Acute on chronic Wean oxygen as able See above (3) Pulmonary embolism: Code(s): I26.99 - Other pulmonary embolism without acute cor pulmonale Status: Acute Assessment and Plan: Renally dosed weight based Lovenox 40 mg given in ED Patient is also on Brilinta, monitor patient for bleeding (4) Stage 3b chronic kidney disease: Code(s): N18.32 - Chronic kidney disease, stage 3b Status: Chronic Assessment and Plan: Renally dose medications (5) Chronic anemia: Code(s): D64.9 - Anemia, unspecified Status: Chronic Assessment and Plan: No signs of acute bleeding Transfuse for hemoglobin less than 7 or symptomatic Daily CBC No need for transfusion at this time (6) Breast cancer metastasized to liver: Qualifiers: Laterality: unspecified laterality Qualified Code(s): C50.919 - Malignant neoplasm of unspecified site of unspecified female breast; C78.7 - Secondary malignant neoplasm of liver and intrahepatic bile duct Code(s): C50.919 - Malignant neoplasm of unspecified site of unspecified female breast; C78.7 - Secondary malignant neoplasm of liver and intrahepatic bile duct Status: Chronic Assessment and Plan: Continue ibrance patient bring from home (7) Hypertension: Code(s): I10 - Essential (primary) hypertension Status: Chronic Assessment and Plan: Continue amlodipine (8) Hypothyroidism: Code(s): E03.9 - Hypothyroidism, unspecified Status: Chronic Assessment and Plan: Continue home levothyroxine TSH within normal limits last month (9) Myocardial infarction: Code(s): I21.9 - Acute myocardial infarction, unspecified Status: Acute Assessment and Plan: 1 month ago Continue Brilinta and aspirin and metoprolol Subjective Date/time seen: 08/17/24 08:13 Interval history: Patient was evaluated the bedside. Patient reports she lives with her son. Patient uses oxygen at home during nighttime. Patient uses walker due to shortness of breath. Patient has a stent placed to times. Patient has a past medical history of breast cancer which was under remission but unfortunately her cancer was back and metastatic to liver. She follows up with . Patient continues to smoke. Patient follows with Dr. Vick and Dr. Davis. Review of Systems Review of Systems: 12 systems were reviewed and are negativ e except for as per HPI. Exam Narrative: General: Chronically ill-appearing malnourished. HEENT: normocephalic, atraumatic. Mucous membranes moist. EOMI, PERRLA, bilateral sclera anicteric, no conjunctival injection. Neck supple without JVD, lymphadenopathy, or bruit. Respiratory: clear demented to ascultation bilaterally. No rales/rhonic/wheezes. Cardiovascular: Regular rate and rhythm, normal S1-S2 upon ascultation. No murmurs, rubs, or clicks. PMI is nondisplaced, capillary refill less than 3 second. Abdomen: Soft, round, no pulsatile masses, nondistended and nontender. No rebound, no guarding. No CVA tenderness, no hepatosplenomegaly. Bowel sounds present to all four quadrants. No high pitch or tinkling sounds, resonant to percussion. Extremities: No cyanosis, clubbing, or edema present. Pulses are palpable 2/2. Active ROM to all four extremities. Neuro: Alert and orientated x 4. PERRLA. Cranial nerves 2-12 intact without focal deficit. Skin: Warm, dry, and intact, without rash, erythema, or lesion. Psych: pleasant, cooperative, normal speech, normal affect, no hallucinations, no dysarthia Objective Data Vital Signs Vital Signs: Vital Signs - 24 hr 08/16/24 09:55 08/16/24 10:05 08/16/24 10:34 Temperature Pulse Rate 92 96 Respiratory Rate 18 22 H Blood Pressure 136/48 L Pulse Oximetry 100 100 Oxygen Delivery Room Air 08/16/24 10:58 08/16/24 12:48 08/16/24 13:19 Temperature Pulse Rate 95 95 Respiratory Rate 22 H 19 Blood Pressure Pulse Oximetry 91 97 Oxygen Delivery 08/16/24 13:54 08/16/24 14:05 08/16/24 14:07 Temperature Pulse Rate 97 96 98 Respiratory Rate 24 H 23 H 18 Blood Pressure 146/60 H 146/60 H Pulse Oximetry 92 92 Oxygen Delivery 08/16/24 14:15 08/16/24 14:16 08/16/24 14:35 Temperature Pulse Rate 97 100 100 Respiratory Rate 19 17 18 Blood Pressure 118/73 Pulse Oximetry 91 92 Oxygen Delivery 08/16/24 14:59 08/16/24 15:01 08/16/24 15:15 Temperature Pulse Rate 96 96 96 Respiratory Rate 20 22 H 20 Blood Pressure Pulse Oximetry Oxygen Delivery 08/16/24 16:38 08/16/24 18:00 08/16/24 18:00 Temperature 98.1 F Pulse Rate 102 H 107 H Respiratory Rate 22 H Blood Pressure 140/66 Pulse Oximetry 95 Oxygen Delivery Room Air 08/16/24 19:08 08/16/24 20:00 08/16/24 20:00 Temperature 97.7 F Pulse Rate 104 H 90 90 Respiratory Rate 20 Blood Pressure 150/48 H Pulse Oximetry 92 Oxygen Delivery 08/16/24 20:30 08/16/24 20:42 08/16/24 21:13 Temperature Pulse Rate 89 94 104 H Respiratory Rate 20 20 20 Blood Pressure Pulse Oximetry 92 Oxygen Delivery Room Air 08/16/24 22:00 08/16/24 23:46 08/16/24 23:50 Temperature Pulse Rate 99 94 101 H Respiratory Rate 18 Blood Pressure Pulse Oximetry 97 Oxygen Delivery Room Air 08/17/24 00:00 08/17/24 00:00 08/17/24 01:40 Temperature 98.5 F Pulse Rate 101 H 103 H 85 Respiratory Rate 18 Blood Pressure 127/47 L Pulse Oximetry 97 Oxygen Delivery 08/17/24 01:52 08/17/24 02:02 08/17/24 04:00 Temperature Pulse Rate 79 85 90 Respiratory Rate 18 18 Blood Pressure Pulse Oximetry Oxygen Delivery 08/17/24 04:00 08/17/24 04:00 08/17/24 05:48 Temperature 98.3 F Pulse Rate 91 91 87 Respiratory Rate 18 18 Blood Pressure 104/40 L Pulse Oximetry 91 91 Oxygen Delivery Room Air Intake/Output Intake/Output: Intake & Output 08/14/24 08/15/24 08/16/24 08/17/24 23:59 23:59 23:59 23:59 Intake Total 270 400 Output Total 650 Balance -380 400 Meds/Results Medications: Active Medications Generic Name Dose Route Start Last Admin Trade Name Freq PRN Reason Stop Dose Admin Acetaminophen 650 mg 08/16/24 16:07 08/17/24 05:35 Acetaminophen 325 Mg Tablet PO 650 mg Q4H PRN Administration Mild Pain (1-3) or Fever Albuterol 2.5 mg 08/16/24 20:00 08/17/24 01:51 Albuterol Sulfate Neb 2.5 Mg/3 Ml Inh INHALATION 2.5 mg Q6HRT MICHAEL Administration Amlodipine Besylate 5 mg 08/16/24 22:30 08/16/24 23:45 Amlodipine Besylate 5 Mg Tablet PO 5 mg DAILY MICHAEL Administration Anastrozole 1 mg 08/17/24 09:00 Anastrozole (*Chemo) 1 Mg Tablet PO DAILY MICHAEL Aspirin 81 mg 08/16/24 22:35 08/16/24 23:45 Aspirin 81 Mg Enteric Tablet PO 81 mg DAILY MICHAEL Administration Bupropion HCl 150 mg 08/16/24 22:35 08/16/24 23:45 Bupropion Hcl Xl (24 Hr) 150 Mg Tabcr PO 150 mg QAM MICHAEL Administration Clonazepam 0.5 mg 08/16/24 23:10 08/16/24 23:47 Clonazepam (*Crx) 0.5 Mg Tablet PO 0.5 mg HS MICHAEL Administration Enoxaparin Sodium 40 mg 08/16/24 16:00 08/16/24 18:28 Enoxaparin 40 Mg/0.4 Ml Syringe SUB-Q 40 mg Q24H MICHAEL Administration Guaifenesin/Dextromethorphan 10 ml 08/16/24 21:00 08/17/24 05:31 Guaifenesin/Dextromethorphan 10 Ml Udc PO 10 ml Q4HR MICHAEL Administration Levofloxacin/Dextrose 750 mg in 150 mls @ 100 mls/hr 08/18/24 09:00 Levaquin 750 Mg/D5w 150 Ml IVPB Q48H MICHAEL Levothyroxine Sodium 75 mcg 08/17/24 06:30 08/17/24 05:31 Levothyroxine Sodium 75 Mcg Tablet PO 75 mcg DAILY@0630 MICHAEL Administration Linaclotide 145 mcg 08/17/24 09:00 Linaclotide 145 Mcg Capsule PO Q72H MICHAEL Loratadine 10 mg 08/16/24 22:35 08/16/24 23:46 Loratadine 10 Mg Tablet PO Not Given QAM [facility] [place] Methylprednisolone Sodium Succinate 60 mg 08/16/24 18:00 08/17/24 05:31 Methylprednisolone Sod Succ 125 Mg Vial IV PUSH 60 mg Q6HR MICHAEL Administration Metoprolol Succinate 25 mg 08/16/24 22:35 08/16/24 23:46 Metoprolol Succinate Ext Rel 25 Mg Tabcr PO 25 mg DAILY MICHAEL Administration Miscellaneous Information 0 each 08/16/24 00:01 08/17/24 01:00 Palbociclib Nonform May Use From Home Please Send To Pharmacy For Verification When Broug XX 09/15/24 00:00 Not Given CLARIFY MICHAEL Nicotine 1 patch 08/17/24 09:00 Nicotine (*Pbkc) 21 Mg Patch TRANSDERM DAILY [facility] [place] Non-Formulary Medication 125 mg 08/17/24 09:00 Palbociclib [Ibrance] PO 09/16/24 08:59 DAILY [facility] Rosuvastatin Calcium 40 mg 08/16/24 23:10 08/16/24 23:47 Rosuvastatin 20 Mg Tablet PO 40 mg HS MICHAEL Administration Ticagrelor 90 mg 08/16/24 21:00 08/16/24 21:22 Ticagrelor 90 Mg Tablet PO 90 mg Q12HR MICHAEL Administration Radiology Results: ITS Impressions Chest X-Ray 08/16/24 10:49 Impression: 1: No acute cardiopulmonary disease. Pulmonary Perfusion Imaging 08/16/24 14:38 IMPRESSION: 1: Intermediate probability for pulmonary embolism. Labs Labs: Laboratory Results - last 24 hr 08/16/24 08/16/24 08/16/24 10:22 10:42 10:54 WBC 12.8 H RBC 3.34 L Hgb 11.0 L Hct 34.8 L MCV 104.2 H MCH 32.9 MCHC 31.6 L RDW 17.5 H Plt Count 328 D MPV 10.5 H Immature Gran % (Auto) 0.4 Neut % (Auto) 73.9 H Lymph % (Auto) 13.1 L [place] % (Auto) 5.4 Eos % (Auto) 6.2 H Baso % (Auto) 1.0 Lymph # (Auto) 1.68 [place] # (Auto) 0.7 H Eos # (Auto) 0.8 H Baso # (Auto) 0.1 Abs Immat Gran (auto) 0.05 H Absolute Neuts (auto) 9.5 H Absolute Nucleated RBC 0.000 Nucleated RBC % 0.0 PT 12.3 INR 0.9 APTT 25.0 D-Dimer 0.65 H Puncture Site Left radial ABG pH 7.333 L ABG pCO2 46.5 H ABG pO2 57.0 L ABG PO2/FiO2 Ratio 2.71 ABG HCO3 24.1 ABG O2 Saturation 87.7 L* ABG O2 Content 14.1 L ABG Base Excess -1.9 A-a Gradient 37.0 Oxyhemoglobin 87.2 L* Carboxyhemoglobin 2.1 H Methemoglobin 0.1 Reduced Hemoglobin 10.6 H Total Hemoglobin 11.5 L O2 Delivery Device Room air O2 Liters/Min Not Reportable FiO2 21 Sodium 140 Potassium 4.5 Chloride 109 H Carbon Dioxide 24 Anion Gap 7 BUN 22 H Creatinine 1.13 H Estim Creat Clear Calc 24 Estimated GFR 47 L Glucose 128 H Calcium 9.2 Total Bilirubin 0.4 AST 30 ALT 36 H Alkaline Phosphatase 68 NT-Pro-B Natriuret Pep 389 H Total Protein 7.1 Albumin 4.2 Urine Color Urine Appearance Urine pH Ur Specific [place] Urine Protein Urine Glucose (UA) Urine Ketones Ur Blood (Man) Urine Nitrate Urine Bilirubin Urine Urobilinogen Leukocyte Esterase Rfl Urine RBC Urine WBC Ur Squamous Epith Cells Urine Bacteria Urine Casts Influenza A (RT-PCR) Negative Influenza B (RT-PCR) Negative RSV (RT-PCR) Negative SARS-CoV-2 RNA (RT-PCR) Negative 08/16/24 08/17/24 16:32 03:50 WBC 9.3 RBC 2.79 L Hgb 9.2 L Hct 28.8 L MCV 103.2 H MCH 33.0 MCHC 31.9 L RDW 17.4 H Plt Count 276 MPV 10.9 H Immature Gran % (Auto) 1.0 H Neut % (Auto) 93.3 H Lymph % (Auto) 5.0 L [place] % (Auto) 0.6 L Eos % (Auto) 0.0 Baso % (Auto) 0.1 L Lymph # (Auto) 0.46 L [place] # (Auto) 0.1 Eos # (Auto) 0.0 Baso # (Auto) 0.0 Abs Immat Gran (auto) 0.09 H Absolute Neuts (auto) 8.7 H Absolute Nucleated RBC 0.000 Nucleated RBC % 0.0 PT INR APTT D-Dimer Puncture Site ABG pH ABG pCO2 ABG pO2 ABG PO2/FiO2 Ratio ABG HCO3 ABG O2 Saturation ABG O2 Content ABG Base Excess A-a Gradient Oxyhemoglobin Carboxyhemoglobin Methemoglobin Reduced Hemoglobin Total Hemoglobin O2 Delivery Device O2 Liters/Min FiO2 Sodium 134 L Potassium 4.3 Chloride 103 Carbon Dioxide 25 Anion Gap 6 BUN 25 H Creatinine 1.17 H Estim Creat Clear Calc 24 Estimated GFR 45 L Glucose 150 H Calcium 8.5 Total Bilirubin AST ALT Alkaline Phosphatase NT-Pro-B Natriuret Pep Total Protein Albumin Urine Color Yellow Urine Appearance Clear Urine pH 5.0 Ur Specific [place] 1.018 Urine Protein 1+ H Urine Glucose (UA) Negative Urine Ketones Trace H Ur Blood (Man) Negative Urine Nitrate Negative Urine Bilirubin Negative Urine Urobilinogen 0.2 Leukocyte Esterase Rfl 1+ H Urine RBC 0-2 Urine WBC 11-20 H Ur Squamous Epith Cells None seen Urine Bacteria None seen Urine Casts 3-5 Influenza A (RT-PCR) Influenza B (RT-PCR) RSV (RT-PCR) SARS-CoV-2 RNA (RT-PCR) Quality VTE Prophylaxis VTE prophylaxis: mechanical ordered and pharmacologic ordered Hospitalist [facility] Advance Care Plan I have confirmed that the patient's Advanced Care Plan is present, code status is documented, or surrogate decision maker is listed in patient medical record.: Yes Medication Reconciliation I have utilized all available resources to obtain, update and review the patients current medications (includes all prescriptions, OTC, herbals, cannabis, and nutritional supplements).: Yes
[2024-08-17] MEDS: TICAGRELOR 90 MG TABLET PO ×2 (10:01→21:17)
[2024-08-17] MEDS: ANASTROZOLE (*CHEMO) 1 MG TABLET PO (10:01)
[2024-08-17] MEDS: ASPIRIN 81 MG ENTERIC TABLET PO (10:01)
[2024-08-17] MEDS: buPROPion HCL XL (24 HR) 150 MG TABCR PO (10:02)
[2024-08-17 11:09] LABS: Alveolar/Arterial O2 Gradient 46.2 mmHg; Base Excess ABG -1.1 mEq/l (+/-2.0); Fractional Inspired Oxygen 21 %; HCO3 ABG 23.7 mEq/l (22.0-26.0); Oxyhemoglobin 89.8 % THb (90.0-100.0); PCO2 ABG 39.8 mmHg (35.0-45.0); PO2 ABG 55.9 mmHg (80.0-100.0); PO2 FiO2 Ratio Arterial Blood 2.66 %; Total Hemoglobin 10.3 g/dL (12.0-18.0); pH ABG 7.393 (7.350-7.450)
[2024-08-17 11:10] LABS: Device ROOM AIR; Modified Allen's Test Pass; Site Drawn LEFT BRACHIAL
[2024-08-17] MEDS: ACETAMINOPHEN/BUTALBITAL/CAFFEINE 325-50-40 MG TABLET (FIORICET) 1 TAB PO (11:25)
--- NOTE | 2024-08-17 12:32 | ADMGEN ---
This patient, Vania Betancourt, was transferred to [address] [place] [address] Room 310-01 at 1215. Patient/family oriented to hospital policies and general routines including ID bracelet, bed and alarms, visiting hours, pain management, procedures, bathroom and other care routines, personal items, smoking policy, room service/diet, and visiting hours. Information on how to activate the Rapid Response Team has been discussed. Patient/Family are encouraged to report perceived risks to care and to ask questions if they do not understand what they are told or what they should do.
[2024-08-17] MEDS: ENOXAPARIN 40 MG/0.4 ML SYRINGE SUB-Q (16:58)
[2024-08-17] MEDS: ROSUVASTATIN 20 MG TABLET 40 MG PO (21:17)
[2024-08-17] MEDS: clonazePAM (*CRX) 0.5 MG TABLET PO (21:18)
[2024-08-17] MEDS: ACETYLCYSTEINE 20% INHAL SOLN 800 MG/4 ML VIAL 200 MG INHALATION (22:13)
[2024-08-18] VITALS (13 sets, daily range): BP systolic 107–127; BP diastolic 42–50; PULSE 76–96; RESP 12–20; TEMP 36.2–37.4; O2SAT 88–100
--- NOTE | 2024-08-18 00:46 | P.PNCROSS_ITS ---
Event Note Event Note Event Note: RN called a positive blood culture: Gram-positive cocci in clusters isolated f rom aerobic bottle only in 1 of 2 sets. Urine culture preliminary is growing Enterococcus species. Start empiric vancomycin, pending identification sensitivities.
[2024-08-18] MEDS: guaiFENesin/DEXTROMETHORPHAN 10 ML UDC PO ×5 (01:57→20:54)
[2024-08-18] MEDS: VANCOMYCIN 1,000 MG/NS 250 ML 1,000 MG/250 ML BAG 250 MG IVPB (01:58)
[2024-08-18] MEDS: ALBUTEROL SULFATE NEB 2.5 MG/3 ML INH INHALATION ×4 (02:55→20:39)
[2024-08-18] MEDS: LEVOTHYROXINE SODIUM 75 MCG TABLET PO (06:16)
[2024-08-18 06:44] LABS: Hematocrit 28.3 % (37.0-47.0); Mean Corpuscular HGB Conc 31.8 g/dl (32-36); Mean Corpuscular Hemoglobin 32.7 pg (26-34); Mean Corpuscular Volume 102.9 fl (80-100); Platelet Count Result 279 k/mm3 (150-375); Red Blood Count 2.75 M/mm3 (4.2-5.4); Red Cell Distribution Width 18.1 % (11.5-14.5); White Blood Count 18.7 K/mm3 (4.5-10.0)
[2024-08-18 06:59] LABS: Alanine Aminotransferase 25 U/L (6-35); Albumin Level 3.2 g/dL (3.5-5.1); Alkaline Phosphatase 42 U/L (38-126); Anion Gap 5 mmol/L (4-12); Aspartate Amino Transferase 25 U/L (14-36); Bilirubin,Total 0.2 mg/dL (0.2-1.3); Blood Urea Nitrogen 38 mg/dL (7-17); Calcium 8.2 mg/dL (8.4-10.2); Carbon Dioxide 27 mmol/L (22-30); Chloride 103 mmol/L (98-107); Estimated CRCL calculation 19 ml/min; Estimated Glomerular Filt Rate 34; Glucose 106 mg/dL (65-110); Potassium 4.1 mmol/L (3.4-5.0); Sodium 135 mmol/L (137-145); Total Protein 5.7 g/dL (6.3-8.2)
[2024-08-18] MEDS: ACETYLCYSTEINE 20% INHAL SOLN 800 MG/4 ML VIAL 200 MG INHALATION ×2 (08:39→20:38)
[2024-08-18] MEDS: predniSONE 20 MG TABLET 40 MG PO (08:48)
[2024-08-18] MEDS: NICOTINE (*PBKC) 21 MG PATCH 1 PATCH TRANSDERM (08:48)
[2024-08-18] MEDS: TICAGRELOR 90 MG TABLET PO ×2 (08:48→20:54)
[2024-08-18] MEDS: ASPIRIN 81 MG ENTERIC TABLET PO (08:48)
[2024-08-18] MEDS: ANASTROZOLE (*CHEMO) 1 MG TABLET PO (08:48)
[2024-08-18] MEDS: buPROPion HCL XL (24 HR) 150 MG TABCR PO (08:48)
[2024-08-18] MEDS: levoFLOXacin 750 MG/D5W 150 ML 750 MG/150 ML BAG 100 MG IVPB (08:49)
[2024-08-18] MEDS: LORATADINE 10 MG TABLET PO (08:49)
[2024-08-18] MEDS: METOPROLOL SUCCINATE EXT REL 25 MG TABCR PO (08:59)
[2024-08-18] MEDS: amLODIPine BESYLATE 5 MG TABLET PO (09:00)
--- NOTE | 2024-08-18 16:45 | P.PNIM_ITS ---
Progress Note: A&P Assessment and Plan (1) COPD exacerbation: Code(s): J44.1 - Chronic obstructive pulmonary disease with (acute) exacerbation Status: Acute Assessment and Plan: Gloria Mo Sol[facility]-Medvi Levofloxacin Robitussin (2) Acute respiratory failure with hypoxia and hypercarbia: Code(s): J96.01 - Acute respiratory failure with hypoxia; J96.02 - Acute respiratory failure with hypercapnia Status: Acute Assessment and Plan: Acute on chronic Wean oxygen as able See above (3) Pulmonary embolism: Code(s): I26.99 - Other pulmonary embolism without acute cor pulmonale Status: Acute Assessment and Plan: Renally dosed weight based Lovenox 40 mg given in ED Patient is also on Brilinta, monitor patient for bleeding (4) Stage 3b chronic kidney disease: Code(s): N18.32 - Chronic kidney disease, stage 3b Status: Chronic Assessment and Plan: Renally dose medications (5) Chronic anemia: Code(s): D64.9 - Anemia, unspecified Status: Chronic Assessment and Plan: No signs of acute bleeding Transfuse for hemoglobin less than 7 or symptomatic Daily CBC No need for transfusion at this time (6) Breast cancer metastasized to liver: Qualifiers: Laterality: unspecified laterality Qualified Code(s): C50.919 - Malignant neoplasm of unspecified site of unspecified female breast; C78.7 - Secondary malignant neoplasm of liver and intrahepatic bile duct Code(s): C50.919 - Malignant neoplasm of unspecified site of unspecified female breast; C78.7 - Secondary malignant neoplasm of liver and intrahepatic bile duct Status: Chronic Assessment and Plan: Continue ibrance patient bring from home (7) Hypertension: Code(s): I10 - Essential (primary) hypertension Status: Chronic Assessment and Plan: Continue amlodipine (8) Hypothyroidism: Code(s): E03.9 - Hypothyroidism, unspecified Status: Chronic Assessment and Plan: Continue home levothyroxine TSH within normal limits last month (9) Myocardial infarction: Code(s): I21.9 - Acute myocardial infarction, unspecified Status: Acute Assessment and Plan: 1 month ago Continue Brilinta and aspirin and metoprolol (10) Bacteremia: Code(s): R78.81 - Bacteremia Status: Acute Assessment and Plan: Unclear source Blood culture from 08/16/2024 shows Gram-positive cocci in cluster Will consider Trans thoracic echocardiogram after the final result Monitor leukocytosis Started on vancomycin Subjective Date/time seen: 08/18/24 16:45 Interval history: Patient started on vancomycin due to blood culture Gram-positive cocci in chain. Pending Sensitivity. Will consider Cardiology consult to for MARIBEL. Review of Systems Review of Systems: 12 systems were reviewed and are negativ e except for as per HPI. Exam Narrative: General: Chronically ill-appearing malnourished. HEENT: normocephalic, atraumatic. Mucous membranes moist. EOMI, PERRLA, bilateral sclera anicteric, no conjunctival injection. Neck supple without JVD, lymphadenopathy, or bruit. Respiratory: clear demented to ascultation bilaterally. No rales/rhonic/wheezes. Cardiovascular: Regular rate and rhythm, normal S1-S2 upon ascultation. No murmurs, rubs, or clicks. PMI is nondisplaced, capillary refill less than 3 second. Abdomen: Soft, round, no pulsatile masses, nondistended and nontender. No rebound, no guarding. No CVA tenderness, no hepatosplenomegaly. Bowel sounds present to all four quadrants. No high pitch or tinkling sounds, resonant to percussion. Extremities: No cyanosis, clubbing, or edema present. Pulses are palpable 2/2. Active ROM to all four extremities. Neuro: Alert and orientated x 4. PERRLA. Cranial nerves 2-12 intact without focal deficit. Skin: Warm, dry, and intact, without rash, erythema, or lesion. Psych: pleasant, cooperative, normal speech, normal affect, no hallucinations, no dysarthia Objective Data Vital Signs Vital Signs: Vital Signs - 24 hr 08/17/24 20:00 08/17/24 22:00 08/17/24 22:15 Temperature 97.8 F Pulse Rate 98 103 H 94 Respiratory Rate 20 18 20 Blood Pressure 130/45 L Pulse Oximetry 91 96 Oxygen Delivery Room Air 08/17/24 22:27 08/17/24 22:27 08/18/24 02:55 Temperature Pulse Rate 98 87 Respiratory Rate 20 14 Blood Pressure Pulse Oximetry 91 Oxygen Delivery Room Air 08/18/24 03:00 08/18/24 06:00 08/18/24 08:00 Temperature 97.4 F L 97.1 F L Pulse Rate 92 96 79 Respiratory Rate 16 16 12 Blood Pressure 107/42 L 127/50 L Pulse Oximetry 94 100 Oxygen Delivery 08/18/24 08:41 08/18/24 08:41 08/18/24 08:59 Temperature Pulse Rate 76 80 Respiratory Rate 20 Blood Pressure Pulse Oximetry 96 Oxygen Delivery Room Air 08/18/24 12:00 08/18/24 12:00 08/18/24 14:05 Temperature 99.3 F Pulse Rate 83 79 79 Respiratory Rate 16 20 Blood Pressure 110/42 L Pulse Oximetry 88 L Oxygen Delivery 08/18/24 14:22 Temperature Pulse Rate 77 Respiratory Rate 20 Blood Pressure Pulse Oximetry Oxygen Delivery Intake/Output Intake/Output: Intake & Output 08/15/24 08/16/24 08/17/24 08/18/24 23:59 23:59 23:59 23:59 Intake Total 270 1979 1430 Output Total 650 Balance -380 1979 1430 Meds/Results Medications: Active Medications Generic Name Dose Route Start Last Admin Trade Name Freq PRN Reason Stop Dose Admin Acetaminophen 650 mg 08/16/24 16:07 08/17/24 21:16 Acetaminophen 325 Mg Tablet PO 650 mg Q4H PRN Administration Mild Pain (1-3) or Fever Acetylcysteine 200 mg 08/17/24 21:00 08/18/24 08:39 Acetylcysteine 20% Inhal Soln 800 Mg/4 Ml Vial INHALATION 200 mg Q12HR MICHAEL Administration Albuterol 2.5 mg 08/16/24 20:00 08/18/24 14:00 Albuterol Sulfate Neb 2.5 Mg/3 Ml Inh INHALATION 2.5 mg Q6HRT MICHAEL Administration Amlodipine Besylate 5 mg 08/16/24 22:30 08/18/24 09:00 Amlodipine Besylate 5 Mg Tablet PO 5 mg DAILY MICHAEL Administration Anastrozole 1 mg 08/17/24 09:00 08/18/24 08:48 Anastrozole (*Chemo) 1 Mg Tablet PO 1 mg DAILY MICHAEL Administration Aspirin 81 mg 08/16/24 22:35 08/18/24 08:48 Aspirin 81 Mg Enteric Tablet PO 81 mg DAILY MICHAEL Administration Bupropion HCl 150 mg 08/16/24 22:35 08/18/24 08:48 Bupropion Hcl Xl (24 Hr) 150 Mg Tabcr PO 150 mg QAM MICHAEL Administration Clonazepam 0.5 mg 08/16/24 23:10 08/17/24 21:18 Clonazepam (*Crx) 0.5 Mg Tablet PO 0.5 mg HS MICHAEL Administration Enoxaparin Sodium 40 mg 08/16/24 16:00 08/17/24 16:58 Enoxaparin 40 Mg/0.4 Ml Syringe SUB-Q 40 mg Q24H MICHAEL Administration Guaifenesin/Dextromethorphan 10 ml 08/16/24 21:00 08/18/24 08:48 Guaifenesin/Dextromethorphan 10 Ml Udc PO 10 ml Q4HR MICHAEL Administration Levofloxacin/Dextrose 750 mg in 150 mls @ 100 mls/hr 08/18/24 09:00 08/18/24 08:49 Levaquin 750 Mg/D5w 150 Ml IVPB 100 mls/hr Q48H MICHAEL Administration Vancomycin HCl 750 mg in 250 mls @ 250 mls/hr 08/19/24 14:00 Vancomycin 750 Mg/Ns 250 Ml IVPB Q36H MICHAEL Levothyroxine Sodium 75 mcg 08/17/24 06:30 08/18/24 06:16 Levothyroxine Sodium 75 Mcg Tablet PO 75 mcg DAILY@0630 MICHAEL Administration Linaclotide 145 mcg 08/17/24 09:00 08/17/24 10:07 Linaclotide 145 Mcg Capsule PO Not Given Q72H MICHAEL Loratadine 10 mg 08/16/24 22:35 08/18/24 08:49 Loratadine 10 Mg Tablet PO 10 mg QAM MICHAEL Administration Metoprolol Succinate 25 mg 08/16/24 22:35 08/18/24 08:59 Metoprolol Succinate Ext Rel 25 Mg Tabcr PO 25 mg DAILY MICHAEL Administration Miscellaneous Information 0 each 08/16/24 00:01 08/18/24 01:18 Palbociclib Nonform May Use From Home Please Send To Pharmacy For Verification When Broug XX 09/15/24 00:00 Not Given CLARIFY MICHAEL Nicotine 1 patch 08/17/24 09:00 08/18/24 08:48 Nicotine (*Dong) 21 Mg Patch TRANSDERM 1 patch DAILY MICHAEL Administration Rosuvastatin Calcium 40 mg 08/16/24 23:10 08/17/24 21:17 Rosuvastatin 20 Mg Tablet PO 40 mg HS MICHAEL Administration Ticagrelor 90 mg 08/16/24 21:00 08/18/24 08:48 Ticagrelor 90 Mg Tablet PO 90 mg Q12HR MICHAEL Administration Radiology Results: ITS Impressions Chest X-Ray 08/16/24 10:49 Impression: 1: No acute cardiopulmonary disease. Pulmonary Perfusion Imaging 08/16/24 14:38 IMPRESSION: 1: Intermediate probability for pulmonary embolism. Labs Labs: Laboratory Results - last 24 hr 08/18/24 06:03 WBC 18.7 H RBC 2.75 L Hgb 9.0 L Hct 28.3 L MCV 102.9 H MCH 32.7 MCHC 31.8 L RDW 18.1 H Plt Count 279 MPV 11.0 H Sodium 135 L Potassium 4.1 Chloride 103 Carbon Dioxide 27 Anion Gap 5 BUN 38 H D Creatinine 1.48 H Estim Creat Clear Calc 19 Estimated GFR 34 L Glucose 106 Calcium 8.2 L Total Bilirubin 0.2 AST 25 ALT 25 Alkaline Phosphatase 42 Total Protein 5.7 L Albumin 3.2 L Quality VTE Prophylaxis VTE prophylaxis: mechanical ordered and pharmacologic ordered Hospitalist MIPS Advance Care Plan I have confirmed that the patient's Advanced Care Plan is present, code status is documented, or surrogate decision maker is listed in patient medical record.: Yes Medication Reconciliation I have utilized all available resources to obtain, update and review the patients current medications (includes all prescriptions, OTC, herbals, cannabis, and nutritional supplements).: Yes
[2024-08-18] MEDS: ENOXAPARIN 40 MG/0.4 ML SYRINGE SUB-Q (17:38)
[2024-08-18] MEDS: ROSUVASTATIN 20 MG TABLET 40 MG PO (20:54)
[2024-08-18] MEDS: clonazePAM (*CRX) 0.5 MG TABLET PO (20:54)
[2024-08-19] VITALS (14 sets, daily range): BP systolic 108–144; BP diastolic 43–60; PULSE 75–95; RESP 16–20; TEMP 35.9–37.1; O2SAT 88–96; BMI 17.1
[2024-08-19] MEDS: ALBUTEROL SULFATE NEB 2.5 MG/3 ML INH INHALATION ×4 (01:17→20:14)
[2024-08-19] MEDS: LEVOTHYROXINE SODIUM 75 MCG TABLET PO (05:51)
[2024-08-19] MEDS: guaiFENesin/DEXTROMETHORPHAN 10 ML UDC PO ×4 (05:51→21:39)
[2024-08-19 06:07] LABS: Estimated CRCL calculation 24 ml/min; Estimated Glomerular Filt Rate 44
[2024-08-19] MEDS: ACETYLCYSTEINE 20% INHAL SOLN 800 MG/4 ML VIAL 200 MG INHALATION ×2 (07:53→20:14)
[2024-08-19] MEDS: ANASTROZOLE (*CHEMO) 1 MG TABLET PO (08:26)
[2024-08-19] MEDS: LORATADINE 10 MG TABLET PO (08:26)
[2024-08-19] MEDS: ASPIRIN 81 MG ENTERIC TABLET PO (08:26)
[2024-08-19] MEDS: TICAGRELOR 90 MG TABLET PO ×2 (08:26→21:39)
[2024-08-19] MEDS: NICOTINE (*PBKC) 21 MG PATCH 1 PATCH TRANSDERM (08:27)
[2024-08-19] MEDS: buPROPion HCL XL (24 HR) 150 MG TABCR PO (08:27)
[2024-08-19] MEDS: LINACLOTIDE 145 MCG CAPSULE PO (12:00)
--- NOTE | 2024-08-19 13:57 | ECG_ITS ---
Test Date: 2024-08-19 14:13:36 Measurements Intervals Cecil Rate: 80 P: 71 WI: 171 QRS: 56 QRSD: 87 T: 51 QT: 359 QTc: 416 Interpretive Statements SINUS RHYTHM MINIMAL Q WAVES- INFERIOR LEADS BASELINE ARTIFACT- I, III, AVR, AVL, AVF, V4-V6 BORDERLINE ECG Compared to ECG 08/16/2024 10:30:18 No significant changes Electronically Signed On 08-19-2024 16:05:07 CDT by Vinh Zavala D.O.
--- NOTE | 2024-08-19 13:59 | P.PNIM_ITS ---
Progress Note: A&P Assessment and Plan (1) COPD exacerbation: Code(s): J44.1 - Chronic obstructive pulmonary disease with (acute) exacerbation Status: Acute Assessment and Plan: Gloria Mo Sol[facility]-Medvi Levofloxacin Robitussin (2) Acute respiratory failure with hypoxia and hypercarbia: Code(s): J96.01 - Acute respiratory failure with hypoxia; J96.02 - Acute respiratory failure with hypercapnia Status: Acute Assessment and Plan: From PE Acute on chronic Wean oxygen as able See above (3) Pulmonary embolism: Code(s): I26.99 - Other pulmonary embolism without acute cor pulmonale Status: Acute Assessment and Plan: Renally dosed weight based Lovenox 40 mg given in ED Patient is also on Brilinta, monitor patient for bleeding (4) Stage 3b chronic kidney disease: Code(s): N18.32 - Chronic kidney disease, stage 3b Status: Chronic Assessment and Plan: Renally dose medications (5) Chronic anemia: Code(s): D64.9 - Anemia, unspecified Status: Chronic Assessment and Plan: No signs of acute bleeding Transfuse for hemoglobin less than 7 or symptomatic Daily CBC No need for transfusion at this time (6) Breast cancer metastasized to liver: Qualifiers: Laterality: unspecified laterality Qualified Code(s): C50.919 - Malignant neoplasm of unspecified site of unspecified female breast; C78.7 - Secondary malignant neoplasm of liver and intrahepatic bile duct Code(s): C50.919 - Malignant neoplasm of unspecified site of unspecified female breast; C78.7 - Secondary malignant neoplasm of liver and intrahepatic bile duct Status: Chronic Assessment and Plan: Continue ibrance patient bring from home (7) Hypertension: Code(s): I10 - Essential (primary) hypertension Status: Chronic Assessment and Plan: Continue amlodipine (8) Hypothyroidism: Code(s): E03.9 - Hypothyroidism, unspecified Status: Chronic Assessment and Plan: Continue home levothyroxine TSH within normal limits last month (9) Myocardial infarction: Code(s): I21.9 - Acute myocardial infarction, unspecified Status: Acute Assessment and Plan: 1 month ago Continue Brilinta and aspirin and metoprolol (10) Bacteremia: Code(s): R78.81 - Bacteremia Status: Acute Assessment and Plan: Blood culture growing Staph capitis in one bottle This is contaminant Plan Enterococcus UTI Urine culture reviewed patient will received the last dose of Vanc today Syncope Patient had syncopal episodes this afternoon Telemonitor showed Sinus bradycardia EKG, ECHo, CXR and cardiology consulted DVT prophylaxis on Full dose Lovenox, renally and weight- adjusted Subjective Date/time seen: 08/19/24 13:59 Interval history: Patient comfortable at bedside however noted significant Dyspnea and lightheadedness on mild exertion patient noted to have passed out after my encounter with her. Telemonitor showed sinus bradycardia EKG, ECHO, CXR and cardiology consulted Review of Systems Review of Systems: 12 systems were reviewed and are negativ e except for as per HPI. Exam Narrative: General: Chronically ill-appearing malnourished. HEENT: normocephalic, atraumatic. Mucous membranes moist. EOMI, PERRLA, bilateral sclera anicteric, no conjunctival injection. Neck supple without JVD, lymphadenopathy, or bruit. Respiratory: clear demented to ascultation bilaterally. No rales/rhonic/wheezes. Cardiovascular: Regular rate and rhythm, normal S1-S2 upon ascultation. No murmurs, rubs, or clicks. PMI is nondisplaced, capillary refill less than 3 second. Abdomen: Soft, round, no pulsatile masses, nondistended and nontender. No rebound, no guarding. No CVA tenderness, no hepatosplenomegaly. Bowel sounds present to all four quadrants. No high pitch or tinkling sounds, resonant to percussion. Extremities: No cyanosis, clubbing, or edema present. Pulses are palpable 2/2. Active ROM to all four extremities. Neuro: Alert and orientated x 4. PERRLA. Cranial nerves 2-12 intact without focal deficit. Skin: Warm, dry, and intact, without rash, erythema, or lesion. Psych: pleasant, cooperative, normal speech, normal affect, no hallucinations, no dysarthia Objective Data Vital Signs Vital Signs: Vital Signs - 24 hr 08/18/24 14:05 08/18/24 14:22 08/18/24 16:00 Temperature 99.2 F Pulse Rate 79 77 93 Respiratory Rate 20 20 16 Blood Pressure 117/50 L Pulse Oximetry 91 Oxygen Delivery Fraction of Inspired Oxygen 08/18/24 20:00 08/18/24 20:00 08/18/24 20:00 Temperature 97.9 F Pulse Rate 80 90 Respiratory Rate 17 Blood Pressure 119/48 L Pulse Oximetry 91 Oxygen Delivery Room Air Fraction of Inspired Oxygen 08/18/24 20:39 08/18/24 20:42 08/19/24 00:00 Temperature 98.2 F Pulse Rate 89 89 84 Respiratory Rate 20 20 16 Blood Pressure 108/43 L Pulse Oximetry 96 91 Oxygen Delivery Room Air Fraction of Inspired Oxygen 08/19/24 00:00 08/19/24 01:18 08/19/24 01:27 Temperature Pulse Rate 78 79 82 Respiratory Rate 20 20 Blood Pressure Pulse Oximetry Oxygen Delivery Fraction of Inspired Oxygen 08/19/24 04:00 08/19/24 04:00 08/19/24 07:53 Temperature 97.5 F L Pulse Rate 95 84 Respiratory Rate 17 Blood Pressure 144/50 H Pulse Oximetry 90 90 Oxygen Delivery Room Air Fraction of Inspired Oxygen 08/19/24 07:53 08/19/24 08:00 08/19/24 08:00 Temperature 98.8 F Pulse Rate 83 77 79 Respiratory Rate 16 18 Blood Pressure 136/60 Pulse Oximetry 89 L Oxygen Delivery Fraction of Inspired Oxygen 08/19/24 08:00 08/19/24 08:06 08/19/24 12:00 Temperature Pulse Rate 80 88 Respiratory Rate 16 Blood Pressure Pulse Oximetry 91 Oxygen Delivery Room Air Fraction of Inspired Oxygen 08/19/24 13:21 08/19/24 13:21 08/19/24 13:30 Temperature Pulse Rate 84 83 Respiratory Rate 20 20 Blood Pressure Pulse Oximetry 90 Oxygen Delivery Room Air Fraction of Inspired Oxygen 21 Intake/Output Intake/Output: Intake & Output 08/16/24 08/17/24 08/18/24 08/19/24 23:59 23:59 23:59 23:59 Intake Total 270 1979 2770 0 Output Total 650 Balance -380 1979 2770 0 Meds/Results Medications: Active Medications Generic Name Dose Route Start Last Admin Trade Name Freq PRN Reason Stop Dose Admin Acetaminophen 650 mg 08/16/24 16:07 08/17/24 21:16 Acetaminophen 325 Mg Tablet PO 650 mg Q4H PRN Administration Mild Pain (1-3) or Fever Acetylcysteine 200 mg 08/17/24 21:00 08/19/24 07:53 Acetylcysteine 20% Inhal Soln 800 Mg/4 Ml Vial INHALATION 200 mg Q12HR MICHAEL Administration Albuterol 2.5 mg 08/16/24 20:00 08/19/24 13:21 Albuterol Sulfate Neb 2.5 Mg/3 Ml Inh INHALATION 2.5 mg Q6HRT MICHAEL Administration Amlodipine Besylate 5 mg 08/16/24 22:30 08/18/24 09:00 Amlodipine Besylate 5 Mg Tablet PO 5 mg DAILY MICHAEL Administration Anastrozole 1 mg 08/17/24 09:00 08/19/24 08:26 Anastrozole (*Chemo) 1 Mg Tablet PO 1 mg DAILY MICHAEL Administration Aspirin 81 mg 08/16/24 22:35 08/19/24 08:26 Aspirin 81 Mg Enteric Tablet PO 81 mg DAILY MICHAEL Administration Bupropion HCl 150 mg 08/16/24 22:35 08/19/24 08:27 Bupropion Hcl Xl (24 Hr) 150 Mg Tabcr PO 150 mg QAM MICHAEL Administration Clonazepam 0.5 mg 08/16/24 23:10 08/18/24 20:54 Clonazepam (*Crx) 0.5 Mg Tablet PO 0.5 mg HS MICHAEL Administration Enoxaparin Sodium 40 mg 08/16/24 16:00 08/18/24 17:38 Enoxaparin 40 Mg/0.4 Ml Syringe SUB-Q 40 mg Q24H MICHAEL Administration Guaifenesin/Dextromethorphan 10 ml 08/16/24 21:00 08/19/24 08:26 Guaifenesin/Dextromethorphan 10 Ml Udc PO 10 ml Q4HR MICHAEL Administration Levofloxacin/Dextrose 750 mg in 150 mls @ 100 mls/hr 08/18/24 09:00 08/18/24 08:49 Levaquin 750 Mg/D5w 150 Ml IVPB 100 mls/hr Q48H MICHAEL Administration Vancomycin HCl 750 mg in 250 mls @ 250 mls/hr 08/19/24 14:00 Vancomycin 750 Mg/Ns 250 Ml IVPB Q36H MICHAEL Levothyroxine Sodium 75 mcg 08/17/24 06:30 08/19/24 05:51 Levothyroxine Sodium 75 Mcg Tablet PO 75 mcg DAILY@0630 MICHAEL Administration Linaclotide 145 mcg 08/19/24 11:35 08/19/24 12:00 Linaclotide 145 Mcg Capsule PO 145 mcg Q72HR MICHAEL Administration Loratadine 10 mg 08/16/24 22:35 08/19/24 08:26 Loratadine 10 Mg Tablet PO 10 mg QAM MICHAEL Administration Metoprolol Succinate 25 mg 08/16/24 22:35 08/19/24 08:27 Metoprolol Succinate Ext Rel 25 Mg Tabcr PO Not Given DAILY [facility] Nicotine 1 patch 08/17/24 09:00 08/19/24 08:27 Nicotine (*Pbkc) 21 Mg Patch TRANSDERM 1 patch DAILY MICHAEL Administration Perflutren Lipid Microsphere 0 ml 08/19/24 13:56 Perflutren Lipid Microspheres 1.5 Ml Vial Diluted To 10 Ml Total Volume IV PUSH 08/22/24 13:57 ONCE PRN adequate visualization Protocol Rosuvastatin Calcium 40 mg 08/16/24 23:10 08/18/24 20:54 Rosuvastatin 20 Mg Tablet PO 40 mg HS MICHAEL Administration Ticagrelor 90 mg 08/16/24 21:00 08/19/24 08:26 Ticagrelor 90 Mg Tablet PO 90 mg Q12HR MICHAEL Administration Radiology Results: ITS Impressions Chest X-Ray 08/16/24 10:49 Impression: 1: No acute cardiopulmonary disease. Pulmonary Perfusion Imaging 08/16/24 14:38 IMPRESSION: 1: Intermediate probability for pulmonary embolism. Chest CT 08/18/24 17:10 IMPRESSION: Post radiation change without additional abnormality within the pulmonary parenchyma. Compression of the superior endplate of T11 with dense sclerosis demonstrating progression from the previous examination of the chest (two-view plain film evaluation) on 09/24/2023 Labs Labs: Laboratory Results - last 24 hr 08/19/24 05:34 Creatinine 1.20 H Estim Creat Clear Calc 24 Estimated GFR 44 L Quality VTE Prophylaxis VTE prophylaxis: mechanical ordered and pharmacologic ordered
[2024-08-19] MEDS: VANCOMYCIN 750 MG/NS 250 ML 750 MG/250 ML BAG 250 MG IVPB (14:05)
--- NOTE | 2024-08-19 15:29 | PM.CNCAR ---
Assessment and Plan Assessment and plan (1) Syncope: Code(s): R55 - Syncope and collapse Status: Acute (2) Bradycardia with 31-40 beats per minute: Code(s): R00.1 - Bradycardia, unspecified Status: Acute Plan 74-year-old female with: -Syncope -Bradycardia-telemetry shows junctional rhythm with lowest heart rate of 38 -CAD, recent STEMI in 07/09/2024 s/p PPCI (aspiration thrombectomy with penumbra CAT Rx of distal RCA stent thrombosis [culprit lesion] followed by balloon angioplasty using NC balloons with congregation of TAMMY 3 flow and residual 40% stenosis; ISR was noted in old distal RCA stent at the bifurcation of PDA and PL- recommendation was for possible YOEL placement or DCB angioplasty in an elective fashion at a later time), nonobstructive CAD with 50% stenosis in the proximal to mid LAD -V Fib 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 status post successful 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 prior to PCI (during aforementioned STEMI); TTE at last admission showed normal LVEF and no significant valvular pathology -Hypertension- hypotension during this hospitalization -Hyperlipidemia -Breast cancer status post mastectomy and chemoradiation with mets to the liver -COPD exacerbation -Acute hypoxic, hypercapnic respiratory failure -UTI -?Bacteremia ?- blood culture 1 of 2 bottles growing Staphylococcus capitis -Sepsis secondary bacteremia, UTI -Possible PE -Chronic anemia -CKD Plan: -the most likely etiology of her syncope appears to be vasovagal as it occurred immediately after bowel movement. Given hypotension, metoprolol and lisinopril have been held for the past 2 days. So unlikely that the beta-ashley caused this current episode. Moreover patient has been having dizziness and syncope for many years when going from sitting to standing position or after bowel movements which is suggestive of orthostatic hypotension/vasovagal syncope -request Oncology consult to weigh in on patient's prognosis in the setting of breast cancer with Mets to the liver. If her life span is estimated to be more than 1 year then recommend PCI to distal RCA ISR (as significant stenosis in distal RCA could be contributing to bradycardia) and EP evaluation for permanent pacemaker placement (for symptomatic bradycardia and need for taking beta-ashley in the setting of prior OR). If her life span is estimated to be less than 1 year, then recommend conservative management with IV fluids, avoiding AV rakan blocking agents, and continued medical management of CAD -recommend normal saline 1 L at 100 mL/hour. Check orthostatics before and after IV fluids -continue monitoring on telemetry -event monitor at discharge for 30 days -patient is without chest pain and EKG is unchanged compared to EKG from 08/16/2024 -check troponin x3. EKG p.r.n. for any chest pain -continue DAPT with aspirin and ticagrelor -continue statin -avoid AV rakan blocking agents and any blood pressure lowering medications -check and replace electrolytes to keep K greater than 4 and magnesium greater than 2 -check renal function and hemoglobin daily -she is on Lovenox for PE. Monitor closely for any bleeding given triple therapy. If patient will need long-term anticoagulation for PE, then recommend switching ticagrelor to Plavix or alternatively stopping aspirin and continuing anticoagulation plus ticagrelor -management of other medical problems per primary team Thank you for allowing us to participate in the care of this patient. Cardiology will continue to follow. History of Present Illness History of Present Illness Consult date/time: 08/19/24 15:29 Reason For Visit: COPD, Hypoxia Narrative: 74-year-old female with history of CAD, recent STEMI in 07/09/2024 s/p PPCI (aspiration thrombectomy with penumbra CAT Rx of distal RCA stent thrombosis [culprit lesion] followed by balloon angioplasty using NC balloons with congregation of TAMMY 3 flow and residual 40% stenosis; ISR was noted in old distal RCA stent at the bifurcation of PDA and PL- recommendation was for possible YOEL placement or DCB angioplasty in an elective fashion at a later time), nonobstructive CAD with 50% stenosis in the proximal to mid LAD, V 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 She is being treated for COPD exacerbation, acute on chronic respiratory failure with hypoxemia and hypercarbia, and possible PE. She also has bacteremia with blood cultures growing Gram-positive cocci in chains. Patient had a syncopal episode today and was noted to be bradycardic on telemetry. Cardiology was consulted for further recommendations. Patient states that she had taken a laxative for having a bowel movement. She was on the toilet and immediately after passing stool she passed out with loss of consciousness for about 30 seconds. This was witnessed by the nurse who called the 2nd nurse to help her. The nurse stated that patient had involuntary bladder movement during this episode. Patient had a thready pulse at this time. She states that patient woke up with painful stimulus. Total loss of consciousness was about 30-35 seconds. Telemetry at this time showed bradycardia with junctional rhythm with lowest heart rate of 38. An EKG after the episode showed sinus rhythm with rate of 80 and inferior Q-waves which is unchanged from her prior EKG on 08/16/2024. Patient reports dizziness, presyncope, syncope for many years whenever she goes from sitting to standing position. Dizziness is more common off all these 3 symptoms. She also notice these symptoms in the past when she had bowel movements. The last time she passed out was many months ago. She lives by herself and states that she either sits on the floor or in a chair when she feels dizzy and then has to get up again by herself. She states that her son's stay with her sometimes. Patient denies any chest pain, palpitations, recent weight gain, leg swelling, orthopnea, PND. Workup: Hemoglobin: 9 WBC: 18.7 Creatinine: 1.2 Troponin: Not checked BNP: 389 EK08/16/2024 showed sinus rhythm with rate of 97, Q-waves in inferior leads EKG today: Sinus rhythm, no change from EKG on 08/16/2024 Chest x-ray: No acute cardiopulmonary pathology CT chest:IMPRESSION: Post radiation change without additional abnormality within the pulmonary parenchyma. Compression of the superior endplate of T11 with dense sclerosis demonstrating progression from the previous examination of the chest (two-view plain film evaluation) on 09/24/2023 V/Q scan: Intermediate probability for PE Prior cardiac workup: TTE 07/09/2024: LVEF 60-65%, grade 1 diastolic dysfunction, mild MR Catheterization 07/09/2024:CONCLUSIONS: 1. CAD: 100% thrombotic occlusion of distal RCA stent (very late stent thrombosis)-infarct related vessel; about 40-50% stenosis proximal-mid LAD. 2. Hyperdynamic LV systolic function, LVEF more than 70%; LVEDP 18 mmHg. 3. 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 Primary PCI-aspiration thrombectomy (penumbra CAT Rx) of distal RCA stent thrombosis, followed by balloon angioplasty using NC balloons with congregation of TAMMY 3 flow. The ISR is at the bifurcation of the distal RCA, and can undergo YOEL placement or DCB angioplasty in an elective fashion at a later time. Review of Systems Review of Systems: A complete review of systems was performed and negative other than those mentioned HPI [facility] Past Medical History Medical History (Updated 08/19/24 @ 17:07 by Angelica Garcia MD) Myocardial infarction Other drug-induced pancytopenia Nausea and vomiting Colon cancer screening Change in bowel habits Constipation Depression with anxiety Chronic anemia Chronic kidney disease Breast cancer metastasized to liver Cancer of right breast (1997) Status post mastectomy and chemo radiation. Metastatic disease to liver discovered in 2022. Gastroesophageal reflux disease Chronic obstructive pulmonary disease Hyperlipidemia Hypertension Coronary artery disease Breast cancer Hypothyroidism Surgical History Surgical History History of bladder repair surgery History of sinus surgery History of right mastectomy (1997) History of cholecystectomy (2012) History of appendectomy History of resection of small bowel (1979) History of coronary artery stent placement History of cardiac catheterization History of tonsillectomy Family History Family History Mother Patient's mother is Family history of diabetes mellitus in first degree relative Family history of lung cancer Family history of congestive heart failure Father Family history of malignant neoplasm, Onset Age: 73 Patient's father is Social History Social History Social History: Surrogate medical decision maker: Dixon Tomlinson, son. Code status: DNR Smoking packs per day: 0.25 Smoking cigarettes per day: 5.0 Years smoked: 50 Smoking pack-years: 12.50 Smoking status: Current every day smoker Tobacco type: cigarettes Second hand tobacco smoke exposure: Yes Additional smoking assessment comments: 1-2 cig a day presently Alcohol intake: never Substance use: never Substance use type: does not use Do You Feel Safe in your Home?: Yes Lack of Transportation: No Lack of Food: Never True Current Housing: I Have Housing Concerned About Future Housing: No Difficulty Paying Gas/Electric Bills: No Difficulty Paying for Meds: No Currently Unemployed: No Education: Don't Know Difficulty w/ Childcare or Family Care: No Living arrangements: with family Gender identity (if verbalized by the patient): Female Spiritual care concerns: No Meds Home Medications and Allergies Home Medications ?Medication ?Instructions ?Recorded ?Confirmed ?Type anastrozole 1 mg tablet 1 mg PO DAILY 02/15/22 08/16/24 History ondansetron 4 mg disintegrating 4 mg PO Q8H PRN nausea and 12/05/23 08/16/24 Rx tablet vomiting #28 tabs bupropion HCl 150 mg 24 hr tablet, 150 mg PO QAM 30 days #90 tabs 12/21/23 08/16/24 Rx extended release metoprolol succinate 25 mg 25 mg PO DAILY 04/03/24 08/16/24 History tablet,extended release 24 hr palbociclib 125 mg capsule 125 mg PO DAILY 04/26/24 08/16/24 History (Ibrance) amlodipine 5 mg tablet 5 mg PO DAILY #90 tabs 06/04/24 08/16/24 Rx fexofenadine 180 mg tablet 180 mg PO DAILY 07/09/24 08/16/24 History (Zakiya Allergy) levothyroxine 75 mcg tablet 75 mcg PO DAILY 07/09/24 08/16/24 History linaclotide 145 mcg capsule 145 mcg PO .COMPLEX 07/09/24 08/16/24 History (Linzess) ticagrelor 90 mg tablet (Brilinta) 90 mg PO Q12HR #180 tabs 07/09/24 08/16/24 Rx aspirin 81 mg tablet,delayed 81 mg PO DAILY #90 tabs 07/10/24 08/16/24 Rx release (Adult Low Dose Aspirin) rosuvastatin 40 mg tablet 40 mg PO HS #90 tabs 07/10/24 08/16/24 Rx albuterol sulfate 90 mcg/actuation See Rx Instructions .Route 08/02/24 08/16/24 Rx aerosol inhaler .COMPLEX #8.5 grams clonazepam 0.5 mg tablet 0.5 mg PO HS 08/16/24 08/16/24 History omeprazole 20 mg capsule,delayed 20 mg PO DAILY #90 caps 08/19/24 Rx release Allergies Allergy/AdvReac Type Severity Reaction Status Date / Time amoxicillin Allergy Severe Anaphylactic Verified 08/05/24 09:58 Shock shellfish derived Allergy Severe itch, Verified 08/05/24 09:58 rash, SOB bacitracin Allergy Intermediate Unknown Verified 08/05/24 09:58 Iodinated Contrast Media Allergy Intermediate Swelling Verified 08/05/24 09:58 of Lip/Tongue/Throat ipratropium Allergy Intermediate rash, Verified 08/05/24 09:58 itchy, SOB latex Allergy Intermediate Hives Verified 08/05/24 09:58 neomycin (From Maxitrol Allergy Intermediate rash, Verified 08/05/24 09:58 (neomycin sulf)) blisters, hives nitrofurantoin (From Allergy Intermediate rash, Verified 08/05/24 09:58 Macrobid) itchy, SOB perfume Allergy Intermediate rash, Verified 08/05/24 09:58 hives, blisters polymyxin B (From Maxitrol Allergy Intermediate rash, Verified 08/05/24 09:58 (neomycin sulf)) blisters, hives cinnamon Allergy Nausea and Verified 08/05/24 09:58 Vomiting Sulfa (Sulfonamide AdvReac Vomiting Verified 08/05/24 09:58 Antibiotics) FRAGRANCE Allergy Severe Blister Uncoded 08/05/24 09:58 laundry soap Tide and Gain Allergy Intermediate blisters, Uncoded 08/05/24 09:58 hives, itchiness, redness, rash Vital Signs Vital Signs - 24 hr 08/18/24 16:00 08/18/24 20:00 08/18/24 20:00 Temperature 37.3 C 36.6 C Pulse Rate 93 80 90 Respiratory Rate 16 17 Blood Pressure 117/50 L 119/48 L Pulse Oximetry 91 91 Oxygen Delivery Fraction of Inspired Oxygen 08/18/24 20:00 08/18/24 20:39 08/18/24 20:42 Temperature Pulse Rate 89 89 Respiratory Rate 20 20 Blood Pressure Pulse Oximetry 96 Oxygen Delivery Room Air Room Air Fraction of Inspired Oxygen 21 08/19/24 00:00 08/19/24 00:00 08/19/24 01:18 Temperature 36.8 C Pulse Rate 84 78 79 Respiratory Rate 16 20 Blood Pressure 108/43 L Pulse Oximetry 91 Oxygen Delivery Fraction of Inspired Oxygen 08/19/24 01:27 08/19/24 04:00 08/19/24 04:00 Temperature 36.4 C L Pulse Rate 82 95 84 Respiratory Rate 20 17 Blood Pressure 144/50 H Pulse Oximetry 90 Oxygen Delivery Fraction of Inspired Oxygen 08/19/24 07:53 08/19/24 07:53 08/19/24 08:00 Temperature 37.1 C Pulse Rate 83 77 Respiratory Rate 16 18 Blood Pressure 136/60 Pulse Oximetry 90 89 L Oxygen Delivery Room Air Fraction of Inspired Oxygen 21 08/19/24 08:00 08/19/24 08:00 08/19/24 08:06 Temperature Pulse Rate 79 80 Respiratory Rate 16 Blood Pressure Pulse Oximetry 91 Oxygen Delivery Room Air Fraction of Inspired Oxygen 08/19/24 12:00 08/19/24 12:00 08/19/24 13:21 Temperature 36.5 C Pulse Rate 88 83 Respiratory Rate 18 Blood Pressure 131/43 L Pulse Oximetry 88 L 90 Oxygen Delivery Room Air Fraction of Inspired Oxygen 21 08/19/24 13:21 08/19/24 13:30 Temperature Pulse Rate 84 83 Respiratory Rate 20 20 Blood Pressure Pulse Oximetry Oxygen Delivery Fraction of Inspired Oxygen Exam Narrative: General: Alert oriented x3, no acute distress Neck: Supple, no JVD Chest: Bilaterally clear to auscultation, no rales or rhonchi Cardiac: S1, S2 +, regular rate, regular rhythm, no murmurs or rubs Extremities: No lower extremity edema, no skin rash Neurologic: Alert and oriented x3, no focal neurological deficits Results Labs and Meds 08/18/24 06:03 08/19/24 05:34 Lab results: Comprehensive Metabolic Panel 08/19/24 Range/Units 05:34 Creatinine 1.20 H (0.7-1.0) mg/dL Intake and Output 08/18/24 08/19/24 08/19/24 23:59 07:59 15:59 Intake Total 1340 120 Balance 1340 120 Intake: Oral 1340 120 Other: # Unmeasured Voids 1 1 Patient Weight 08/19/24 23:59 Weight 42.4 kg
[2024-08-19] MEDS: ENOXAPARIN 40 MG/0.4 ML SYRINGE SUB-Q (17:25)
[2024-08-19] MEDS: SODIUM CHLORIDE 0.9% IV 1,000 ML 100 ML IV CONT (19:05)
[2024-08-19] MEDS: ROSUVASTATIN 20 MG TABLET 40 MG PO (21:39)
[2024-08-19] MEDS: clonazePAM (*CRX) 0.5 MG TABLET PO (21:39)
[2024-08-20] VITALS (18 sets, daily range): BP systolic 75–142; BP diastolic 40–54; PULSE 76–127; RESP 13–20; TEMP 36.2–36.8; O2SAT 91–97
--- NOTE | 2024-08-20 | ECHO_ITS ---
Patient Info Name: Vania Betancourt Age: 74 years : 1950 Gender: Female Ht: 62 in Wt: 93 lbs BSA: 1.35 m2 HR: 96 bpm BP: 133 / 49 mmHg Technical Quality: Good Exam Date: 08/20/2024 11:24 AM Patient Status: I Admit Date: 08/17/2024 Exam Type: CA echo doppler color flow Complete two-dimensional, color flow and Doppler transthoracic echocardiogram is performed. Staff Referring Physician: Blanco Noyola Bicycle Fitter: Rani Isbell Attending Provider: Derek Garvin Summary 1. Left ventricular chamber dimension is normal. 2. Left ventricular systolic function is normal, estimated at 65-70. 3. There is mildly increased left ventricular wall thickness. 4. The left ventricular diastolic function is grade I diastolic dysfunction. 5. Right ventricular systolic function is normal. 6. There is mild tricuspid valve regurgitation. Left Ventricle Left ventricular chamber dimension is normal. Left ventricular systolic function is normal, estimated at 65-70. There is mildly increased left ventricular wall thickness. The left ventricular diastolic function is grade I diastolic dysfunction. Right Ventricle Right ventricular chamber dimension is normal. Right ventricular systolic function is normal. Left Atria Left atrial chamber dimension is normal. Right Atria Right atrial chamber dimension is normal. Atrial Septum Intact interatrial septum visualized by color flow imaging. Aortic Valve The aortic valve is not well visualized. There is no aortic valve stenosis. There is no aortic valve regurgitation. Pulmonic Valve The pulmonic valve is not well visualized. There is no pulmonic regurgitation. Mitral Valve There is trace mitral valve regurgitation. Tricuspid Valve There is mild tricuspid valve regurgitation. Pericardium/Pleural There is no pericardial effusion. Inferior Vena Cava Normal inferior vena cava with >50% collapse upon inspiration consistent with normal right atrial pressure, 3 mmHg. Aorta The aortic root size at the sinus of Valsalva is normal. Left Ventricular Outflow Tract Name Value Normal LVOT 2D LVOT Diameter 1.7 cm LVOT Doppler LVOT Peak Velocity 122 cm/s LVOT Peak Gradient 6 mmHg LVOT Mean Gradient 3 mmHg LVOT VTI 24 cm LVOT VTI/AV VTI Ratio 0.8 LVOT Stroke Volume 55 ml LVOT CO 4.8 l/min LVOT CI 3.5 l/min/m2 Pulmonic Valve Name Value Normal RVOT Doppler RVOT Peak Velocity 93 cm/s RVOT Peak Gradient 3 mmHg PV Doppler PV Peak Velocity 103 cm/s PV Peak Gradient 4 mmHg Mitral Valve Name Value Normal MV Doppler MV Peak Gradient 7 mmHg MV Mean Gradient 4 mmHg MV Area (Cont Eq VTI) 1.9 cm2 MV Diastolic Function MV E Peak Velocity 95 cm/s MV A Peak Velocity 113 cm/s MV E/A 0.8 MV Decel Time (PW) 267 ms MV Annular TDI MV E/e' (Septal) 16.3 MV E/e' (Lateral) 11.7 MV E/e' (Average) 14.0 Tricuspid Valve Name Value Normal TV Regurgitation Doppler TR Peak Velocity 293 cm/s TR Peak Gradient 34 mmHg Estimated PAP/RSVP RA Pressure 3 mmHg <=5 PA Systolic Pressure 37 mmHg <36 RV Systolic Pressure 37 mmHg <36 Aortic Valve Name Value Normal AV Doppler AV Peak Velocity 186 cm/s AV Peak Gradient 14 mmHg AV Mean Gradient 8 mmHg AV VTI 29 cm AV Area (Cont Eq VTI) 1.9 cm2 >=3.0 AV Area (Cont Eq Bandar) 1.5 cm2 AV DI (Bandar) 0.66 AV Regurgitation 2D LVOT Area 2.3 cm2 Ventricles Name Value Normal LV Dimensions 2D/MM IVS Diastolic Thickness (2D) 1.0 cm 0.6-1.0 LVID Diastole (2D) 3.2 cm 3.8-5.2 LVIW Diastolic Thickness (2D) 1.0 cm 0.6-0.9 LVID Systole (2D) 2.2 cm 2.2-3.5 LVOT Diameter 1.7 cm LV Mass (2D Cubed) 91.68 g 67.00-162.00 LV Mass Index (2D Cubed) 68 g/m2 43-95 Relative Wall Thickness (2D) 0.62 <=0.42 LV Fractional Shortening/Ejection Fraction 2D/MM LV Fractional Shortening (2D) 33 % 27-45 LV EF (2D Teichholz) 63 % LV Diastolic Volume (4C MOD) 51 ml LV EF (4C MOD) 53 % LV Diastolic Volume (2C MOD) 51 ml LV EF (2C MOD) 61 % LV Diastolic Volume (BP MOD) 51 ml 46-106 LV Diastolic Volume Index (BP MOD) 38 ml/m2 29-61 LV Systolic Volume (BP MOD) 22 ml 14-42 LV Systolic Volume Index (BP MOD) 16 ml/m2 8-24 LV EF (BP MOD) 57 % 54-74 LV Diastolic Length (4C) 7.4 cm LV Systolic Length (4C) 6.4 cm LV Stroke Volume (4C MOD) 27 ml Atria Name Value Normal LA Dimensions LA Volume (4C A-L) 11 ml LA Volume (BP A-L) 17 ml RA Dimensions RA Systolic Major [place] Length (4C) 3.7 cm 2.2-2.8 RA Area (4C) 8.8 cm2 <=18.0 Report Signatures
[2024-08-20] MEDS: guaiFENesin/DEXTROMETHORPHAN 10 ML UDC PO ×3 (01:53→08:46)
[2024-08-20] MEDS: ALBUTEROL SULFATE NEB 2.5 MG/3 ML INH INHALATION ×4 (01:55→20:35)
[2024-08-20] MEDS: LEVOTHYROXINE SODIUM 75 MCG TABLET PO (05:42)
[2024-08-20 06:35] LABS: Basophils Percent Auto 0.2 % (0.2-1.2); Eosinophils Absolute Auto 0.4 K/mm3 (0-0.3); Eosinophils Percent Auto 4.1 % (0-4.4); Hematocrit 30.4 % (37.0-47.0); Hemoglobin 9.4 g/dL (12.0-15.0); Immature Granulocyte Absolute 0.19 K/mm3 (0.00-0.031); Immature Granulocyte Percent A 1.8 % (0-0.5); Lymphocytes Absolute Auto 1.29 K/mm3 (0.9-3.2); Lymphocytes Percent Auto 12.4 % (18.3-44.2); Mean Corpuscular HGB Conc 30.9 g/dl (32-36); Mean Corpuscular Hemoglobin 32.9 pg (26-34); Mean Corpuscular Volume 106.3 fl (80-100); Mean Platelet Volume 10.7 fl (7.4-10.4); Monocytes Absolute Auto 1.3 K/mm3 (0.1-0.6); Monocytes Percent Auto 12.3 % (2.6-8.5); Neutrophils Absolute Auto 7.2 K/mm3 (1.3-6.7); Neutrophils Percent Auto 69.2 % (45.5-73.1); Platelet Count Result 249 k/mm3 (150-375); Red Blood Count 2.86 M/mm3 (4.2-5.4); Red Cell Distribution Width 18.5 % (11.5-14.5); White Blood Count 10.4 K/mm3 (4.5-10.0)
[2024-08-20 06:59] LABS: Large Platelets Present; Macrocytosis 1+ (NORMAL); Platelet Estimate Adequate (Adequate); Schistocytes None Seen
[2024-08-20 07:03] LABS: Alanine Aminotransferase 44 U/L (6-35); Albumin Level 3.2 g/dL (3.5-5.1); Alkaline Phosphatase 45 U/L (38-126); Anion Gap 6 mmol/L (4-12); Aspartate Amino Transferase 42 U/L (14-36); Bilirubin,Total 0.3 mg/dL (0.2-1.3); Blood Urea Nitrogen 28 mg/dL (7-17); Calcium 7.8 mg/dL (8.4-10.2); Carbon Dioxide 22 mmol/L (22-30); Chloride 107 mmol/L (98-107); Estimated CRCL calculation 31 ml/min; Estimated Glomerular Filt Rate 55; Glucose 81 mg/dL (65-110); Magnesium 2.2 mg/dL (1.6-2.3); Potassium 3.6 mmol/L (3.4-5.0); Sodium 135 mmol/L (137-145); Total Protein 5.6 g/dL (6.3-8.2)
[2024-08-20] MEDS: ACETYLCYSTEINE 20% INHAL SOLN 800 MG/4 ML VIAL 200 MG INHALATION (08:18)
[2024-08-20] MEDS: ASPIRIN 81 MG ENTERIC TABLET PO (08:46)
[2024-08-20] MEDS: TICAGRELOR 90 MG TABLET PO ×2 (08:46→20:55)
[2024-08-20] MEDS: ANASTROZOLE (*CHEMO) 1 MG TABLET PO (08:46)
[2024-08-20] MEDS: NICOTINE (*PBKC) 21 MG PATCH 1 PATCH TRANSDERM (08:46)
[2024-08-20] MEDS: POTASSIUM CHLORIDE 20 MEQ ER TABLET PO (08:46)
[2024-08-20] MEDS: LORATADINE 10 MG TABLET PO (08:46)
[2024-08-20] MEDS: buPROPion HCL XL (24 HR) 150 MG TABCR PO (08:46)
--- NOTE | 2024-08-20 09:36 | PM.PNCARD ---
Progress Note: A&P Assessment and Plan (1) Syncope: Code(s): R55 - Syncope and collapse Status: Acute Plan 74-year-old female with: -Syncope -Bradycardia - telemetry shows junctional rhythm with lowest heart rate of 38 -CAD, recent STEMI on 07/09/2024 s/p PPCI (aspiration thrombectomy with penumbra CAT Rx of distal RCA stent thrombosis [culprit lesion] followed by balloon angioplasty using NC balloons with alevism of TAMMY 3 flow and residual 40% stenosis; ISR was noted in old distal RCA stent at the bifurcation of PDA and PL - recommendation was for possible YOEL placement or DCB angioplasty in an elective fashion at a later time), nonobstructive CAD with 50% stenosis in the proximal to mid LAD -V Fib cardiac arrest in the [facility] status post successful 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 prior to PCI (during aforementioned STEMI); TTE at last admission showed normal LVEF and no significant valvular pathology -Hypertension - hypotension during this hospitalization -Hyperlipidemia -Breast cancer status post mastectomy and chemoradiation with mets to the liver -COPD exacerbation -Acute hypoxic, hypercapnic respiratory failure -UTI -?Bacteremia? - blood culture 1 of 2 bottles growing Staphylococcus capitis -Sepsis secondary bacteremia, UTI -Possible PE -Chronic anemia -CKD Plan: -The most likely etiology of her syncope appears to be vasovagal as it occurred immediately after bowel movement. Patient also endorses orthostatic symptoms. Given hypotension, metoprolol and lisinopril have been held for the time being. Unlikely that the beta-ashley caused this current episode. Moreover patient has been having dizziness and syncope for many years when going from sitting to standing position or after bowel movements which is suggestive of orthostatic hypotension/vasovagal syncope -Check orthostatic vital signs. Fluid resuscitation as needed. -Event monitor at discharge for 30 days (order placed). -Continue DAPT. However, given bradycardia, will transition Brilinta to Plavix as bradyarrhythmias are a known side effect of Brilinta. -Continue statin. -Avoid AV rakan blocking agents and any blood pressure lowering medications -Check and replace electrolytes to keep K greater than 4 and magnesium greater than 2 -She is on Lovenox for PE. Monitor closely for any bleeding given triple therapy. If patient will need long-term anticoagulation for PE, then recommend stopping ASA and continuing with Plavix + therapeutic anticoagulation. -Management of other medical problems per primary team Subjective Date/time seen: 08/20/24 09:36 Interval history: Reason for visit: Syncope HPI: 74-year-old female with history of CAD, recent STEMI in 07/09/2024 s/p PPCI (aspiration thrombectomy with penumbra CAT Rx of distal RCA stent thrombosis [culprit lesion] followed by balloon angioplasty using NC balloons with alevism of TAMMY 3 flow and residual 40% stenosis; ISR was noted in old distal RCA stent at the bifurcation of PDA and PL- recommendation was for possible YOEL placement or DCB angioplasty in an elective fashion at a later time), nonobstructive CAD with 50% stenosis in the proximal to mid LAD, V Fib cardiac arrest in the [facility] status post successful 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 prior to PCI (during aforementioned STEMI), hypertension, hyperlipidemia, chronic kidney disease, chronic anemia, breast cancer status post mastectomy and chemoradiation with mets to the liver, COPD, GERD, hypothyroidism was admitted with CC of [facility]. She is being treated for COPD exacerbation, acute on chronic respiratory failure with hypoxemia and hypercarbia, and possible PE. She also has bacteremia with blood cultures growing Gram-positive cocci in chains. Patient had a syncopal episode today and was noted to be bradycardic on telemetry. Cardiology was consulted for further recommendations. Patient states that she had taken a laxative for having a bowel movement. She was on the toilet and immediately after passing stool she passed out with loss of consciousness for about 30 seconds. This was witnessed by the nurse who called the 2nd nurse to help her. The nurse stated that patient had involuntary bladder movement during this episode. Patient had a thready pulse at this time. She states that patient woke up with painful stimulus. Total loss of consciousness was about 30-35 seconds. Telemetry at this time showed bradycardia with junctional rhythm with lowest heart rate of 38. An EKG after the episode showed sinus rhythm with rate of 80 and inferior Q-waves which is unchanged from her prior EKG on 08/16/2024. Patient reports dizziness, presyncope, syncope for many years whenever she goes from sitting to standing position. Dizziness is more common off all these 3 symptoms. She also notice these symptoms in the past when she had bowel movements. The last time she passed out was many months ago. She lives by herself and states that she either sits on the floor or in a chair when she feels dizzy and then has to get up again by herself. She states that her son's stay with her sometimes. Patient denies any chest pain, palpitations, recent weight gain, leg swelling, orthopnea, PND. Date of service 08/20/2024: Still endorses lightheadedness/dizziness when standing up. Feels okay when sitting down or laying down. Tele with sinus rhythm, no further issues with bradycardia since yesterday afternoon. Review of Systems Cardiovascular: Cardiovascular: Reports as per HPI Exam Const: General: no acute distress Eyes: General: appearance normal, both eyes and all related structures Sclera: sclerae normal Resp: Effort & Inspection: normal respiratory effort Cardio: Rate: regular rate Rhythm: regular rhythm Skin: General skin exam: normal color Neuro: Speech: normal speech Psych: Mental Status: mental status grossly normal Affect: normal affect Objective Data Vital Signs Vital Signs: Vital Signs - 24 hr 08/19/24 12:00 08/19/24 12:00 08/19/24 13:21 Temperature 36.5 C Pulse Rate 88 83 Respiratory Rate 18 Blood Pressure 131/43 L Pulse Oximetry 88 L 90 Oxygen Delivery Room Air Oxygen Flow Rate Fraction of Inspired Oxygen 21 08/19/24 13:21 08/19/24 13:30 08/19/24 16:00 Temperature Pulse Rate 84 83 75 Respiratory Rate 20 20 Blood Pressure Pulse Oximetry Oxygen Delivery Oxygen Flow Rate Fraction of Inspired Oxygen 08/19/24 16:00 08/19/24 20:00 08/19/24 20:00 Temperature 35.9 C L 36.7 C Pulse Rate 78 87 Respiratory Rate 18 19 Blood Pressure 120/47 L 143/45 H Pulse Oximetry 95 93 93 Oxygen Delivery Nasal Cannula Oxygen Flow Rate 2 Fraction of Inspired Oxygen 08/19/24 20:00 08/19/24 20:14 08/19/24 20:14 Temperature Pulse Rate 85 88 Respiratory Rate 18 Blood Pressure Pulse Oximetry 96 Oxygen Delivery Nasal Cannula Oxygen Flow Rate 2 Fraction of Inspired Oxygen 08/19/24 20:27 08/20/24 00:00 08/20/24 00:00 Temperature 36.6 C Pulse Rate 82 81 80 Respiratory Rate 18 16 Blood Pressure 117/43 L Pulse Oximetry 91 Oxygen Delivery Oxygen Flow Rate Fraction of Inspired Oxygen 08/20/24 01:56 08/20/24 02:02 08/20/24 04:00 Temperature Pulse Rate 80 83 80 Respiratory Rate 18 18 Blood Pressure Pulse Oximetry Oxygen Delivery Oxygen Flow Rate Fraction of Inspired Oxygen 08/20/24 04:00 08/20/24 08:21 08/20/24 08:21 Temperature 36.2 C L Pulse Rate 86 83 83 Respiratory Rate 13 20 20 Blood Pressure 133/49 L Pulse Oximetry 96 97 Oxygen Delivery Nasal Cannula Oxygen Flow Rate 2 Fraction of Inspired Oxygen 08/20/24 08:30 Temperature Pulse Rate 79 Respiratory Rate 20 Blood Pressure Pulse Oximetry Oxygen Delivery Oxygen Flow Rate Fraction of Inspired Oxygen Intake/Output Intake/Output: Intake & Output 08/17/24 08/18/24 08/19/24 08/20/24 23:59 23:59 23:59 23:59 Intake Total 1979 2770 120 100 Output Total 3 Balance 1979 2769 117 100 Meds/Results Medications: Active Medications Generic Name Dose Route Start Last Admin Trade Name Freq PRN Reason Stop Dose Admin Acetaminophen 650 mg 08/16/24 16:07 08/17/24 21:16 Acetaminophen 325 Mg Tablet PO 650 mg Q4H PRN Administration Mild Pain (1-3) or Fever Acetylcysteine 200 mg 08/17/24 21:00 08/20/24 08:18 Acetylcysteine 20% Inhal Soln 800 Mg/4 Ml Vial INHALATION 200 mg Q12HR MICHAEL Administration Albuterol 2.5 mg 08/16/24 20:00 08/20/24 08:18 Albuterol Sulfate Neb 2.5 Mg/3 Ml Inh INHALATION 2.5 mg Q6HRT MICHAEL Administration Amlodipine Besylate 5 mg 08/16/24 22:30 08/18/24 09:00 Amlodipine Besylate 5 Mg Tablet PO 5 mg DAILY MICHAEL Administration Anastrozole 1 mg 08/17/24 09:00 08/20/24 08:46 Anastrozole (*Chemo) 1 Mg Tablet PO 1 mg DAILY MICHAEL Administration Aspirin 81 mg 08/16/24 22:35 08/20/24 08:46 Aspirin 81 Mg Enteric Tablet PO 81 mg DAILY MICHAEL Administration Bupropion HCl 150 mg 08/16/24 22:35 08/20/24 08:46 Bupropion Hcl Xl (24 Hr) 150 Mg Tabcr PO 150 mg QAM MICHAEL Administration Clonazepam 0.5 mg 08/16/24 23:10 08/19/24 21:39 Clonazepam (*Crx) 0.5 Mg Tablet PO 0.5 mg HS MICHAEL Administration Clopidogrel Bisulfate 600 mg 08/21/24 09:00 Clopidogrel Bisulfate 300 Mg Tablet PO 08/21/24 09:01 ONCE ONE Clopidogrel Bisulfate 75 mg 08/22/24 09:00 Clopidogrel Bisulfate 75 Mg Tablet PO QAM MICHAEL Enoxaparin Sodium 40 mg 08/16/24 16:00 08/19/24 17:25 Enoxaparin 40 Mg/0.4 Ml Syringe SUB-Q 40 mg Q24H MICHAEL Administration Guaifenesin/Dextromethorphan 10 ml 08/16/24 21:00 08/20/24 08:46 Guaifenesin/Dextromethorphan 10 Ml Udc PO 10 ml Q4HR MICHAEL Administration Levothyroxine Sodium 75 mcg 08/17/24 06:30 08/20/24 05:42 Levothyroxine Sodium 75 Mcg Tablet PO 75 mcg DAILY@0630 MICHAEL Administration Linaclotide 145 mcg 08/19/24 11:35 08/19/24 12:00 Linaclotide 145 Mcg Capsule PO 145 mcg Q72HR MICHAEL Administration Loratadine 10 mg 08/16/24 22:35 08/20/24 08:46 Loratadine 10 Mg Tablet PO 10 mg QAM MICHAEL Administration Nicotine 1 patch 08/17/24 09:00 08/20/24 08:46 Nicotine (*Robinson[place]) 21 Mg Patch TRANSDERM 1 patch DAILY MICHAEL Administration Perflutren Lipid Microsphere 0 ml 08/19/24 13:56 Perflutren Lipid Microspheres 1.5 Ml Vial Diluted To 10 Ml Total Volume IV PUSH 08/22/24 13:57 ONCE PRN adequate visualization Protocol Rosuvastatin Calcium 40 mg 08/16/24 23:10 08/19/24 21:39 Rosuvastatin 20 Mg Tablet PO 40 mg HS MICHAEL Administration Ticagrelor 90 mg 08/16/24 21:00 08/20/24 08:46 Ticagrelor 90 Mg Tablet PO 08/20/24 23:59 90 mg Q12HR MICHAEL Administration Radiology Results: ITS Impressions Pulmonary Perfusion Imaging 08/16/24 14:38 IMPRESSION: 1: Intermediate probability for pulmonary embolism. Chest CT 08/18/24 17:10 IMPRESSION: Post radiation change without additional abnormality within the pulmonary parenchyma. Compression of the superior endplate of T11 with dense sclerosis demonstrating progression from the previous examination of the chest (two-view plain film evaluation) on 09/24/2023 Chest X-Ray 08/19/24 14:28 IMPRESSION: No acute cardiopulmonary pathology. Labs Labs: Laboratory Results - last 24 hr 08/20/24 05:41 WBC 10.4 H RBC 2.86 L Hgb 9.4 L Hct 30.4 L MCV 106.3 H MCH 32.9 MCHC 30.9 L RDW 18.5 H Plt Count 249 MPV 10.7 H Immature Gran % (Auto) 1.8 H Neut % (Auto) 69.2 Lymph % (Auto) 12.4 L [place] % (Auto) 12.3 H Eos % (Auto) 4.1 Baso % (Auto) 0.2 Lymph # (Auto) 1.29 [place] # (Auto) 1.3 H Eos # (Auto) 0.4 H Baso # (Auto) 0.0 Abs Immat Gran (auto) 0.19 H Absolute Neuts (auto) 7.2 H Absolute Nucleated RBC 0.000 Band Neutrophils % Not Reportable Nucleated RBC % 0.0 Platelet Estimate Adequate Large Platelets Present Macrocytosis 1+ Schistocytes None seen Sodium 135 L Potassium 3.6 Chloride 107 Carbon Dioxide 22 Anion Gap 6 BUN 28 H D Creatinine 0.99 Estim Creat Clear Calc 31 Estimated GFR 55 L Glucose 81 Calcium 7.8 L Magnesium 2.2 Total Bilirubin 0.3 AST 42 H ALT 44 H Alkaline Phosphatase 45 Total Protein 5.6 L Albumin 3.2 L
--- NOTE | 2024-08-20 16:20 | PM.IMPN ---
Progress Note: A&P Assessment and Plan (1) Acute respiratory failure with hypoxia and hypercarbia: Code(s): J96.01 - Acute respiratory failure with hypoxia; J96.02 - Acute respiratory failure with hypercapnia Status: Acute Assessment and Plan: Patient with acute respiratory failure. ABG 7.33/46/[address] chest shows severe emphysema, biapical scarring. Acute resp failure related to COPD exacerbation and possibly PE. She is on scheduled Albuterol which she takes at home She is still with PERAZA but down to 1L. Bradycardia better so should help her SOB. Wean oxygen as able. Home O2 evaluation close to discharge. (2) COPD exacerbation: Code(s): J44.1 - Chronic obstructive pulmonary disease with (acute) exacerbation Status: Acute Assessment and Plan: COPD exacerbation. Treated with Levaquin, Solu-Medrol and DuoNebs Symptomatically better and no wheezing The PERAZA may be chronic. And she may be close to needing home O2 Continue scheduled Albuterol. Stop Mucomyst. Change Robitussin to prn. Add Mucinex (3) Pulmonary embolism: Code(s): I26.99 - Other pulmonary embolism without acute cor pulmonale Status: Acute Assessment and Plan: Concern for PE so VQ scan performed showing intermediate probability of PE. Lovenox started. She is allergic to IV contrast. CrCl is better at 31 now. Patient is also on Brilinta and ASA. Changing to Plavix. Monitor patient for bleeding Check LE venous dopplers; if negative, would pre-treat and check CTA Chest if renal function remains stable (4) Coronary artery disease: Code(s): I25.10 - Atherosclerotic heart disease of [place] coronary artery without angina pectoris Status: Acute Assessment and Plan: Patient had a recent STEMI on 07/09/24 s/p PCI with aspiration thrombectomy at distal RCA stent thrombosis and balloon angioplasty (Plan for possible YOEL placement or DCB angioplasty in an elective fashion at a later time) Also with VFib arrest in the [facility] status post successful 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 prior to PCI TTE here showing EF 65-70%, grade I diastolic dysfunction Bradycardia here related to metoprolol and/or Brilinta. metoprolol stopped. Contnue ASA. Brilinta being changed to Plavix. Tele showing resolution of bradycardia. (5) Breast cancer metastasized to liver: Qualifiers: Laterality: unspecified laterality Qualified Code(s): C50.919 - Malignant neoplasm of unspecified site of unspecified female breast; C78.7 - Secondary malignant neoplasm of liver and intrahepatic bile duct Code(s): C50.919 - Malignant neoplasm of unspecified site of unspecified female breast; C78.7 - Secondary malignant neoplasm of liver and intrahepatic bile duct Status: Chronic Assessment and Plan: Continue anastrozole (6) Bacteremia: Code(s): R78.81 - Bacteremia Status: Acute Assessment and Plan: BCx grew Staph capitis in one aerobic bottle only This is most likely a contaminant 2nd BCx set remaining negative. (7) Stage 3b chronic kidney disease: Code(s): N18.32 - Chronic kidney disease, stage 3b Status: Chronic Assessment and Plan: Cr baseline runs 1.1-1.6 Cr stable here Renally dose medications Monitor renal function, UOP and electrolytes. (8) Chronic anemia: Code(s): D64.9 - Anemia, unspecified Status: Chronic Assessment and Plan: No signs of acute bleeding. probably related to metastatic breast CA Transfuse for hemoglobin less than 7 or symptomatic (9) Hypertension: Code(s): I10 - Essential (primary) hypertension Status: Chronic Assessment and Plan: Patient's blood pressure was reviewed on 08/20 Blood pressure remains well controlled. Currently off all anti-HTN medications. Follow (10) Hypothyroidism: Code(s): E03.9 - Hypothyroidism, unspecified Status: Chronic Assessment and Plan: TSH within normal limits last month Continue home levothyroxine (11) UTI (urinary tract infection): Code(s): N39.0 - Urinary tract infection, site not specified Status: Acute Assessment and Plan: UA noted. UCx collected. Abx started. UCx grew 10-49K colonies of Enterococcus. Patient treated with Vanc and completed a course (12) Syncope: Code(s): R55 - Syncope and collapse Status: Acute Assessment and Plan: Patient had syncopal episodes in the afternoon on 08/19 Telemonitor showed sinus bradycardia Echo as above. Cardiology consulted. Metoprolol stopped. Brilinta being converted to Plavix Tele showing bradycardia resolving. Plan Code status- modified. DVT prophylaxis - Lovenox Subjective Date/time seen: 08/20/24 16:20 Interval history: 74yo female with breast cancer with metastases to the liver, current smoker, COPD and CAD with a MT 1 month ago presents the hospital with increased shortness of breath. Assuming care. Chart reviewed. She slept poorly. She is walking to the bathroom. She remains on 1L but does not wear O2 at home. She continues to smoke 2-3 cig per day. She still feels SOB mostly with exertion. Cough productive of clear sputum. She wants to continue using the nicotine patch while here. No seasonal allergy symptoms. Exam Narrative: AF 98.3 147/54 85 20 94% 1L Gen - NARD lying semi-recumbent in bed Chest - scattered inspiratory rhonchi with distant BS but no wheezing CV - RRR S1/S2. tele showing normal sinus now. bradycardia improved Abd - Soft, NT/ND, Positive BS. +abd bruit loudest at the femorals Ext - No pedal edema Psych - Nml mood and affect Skin - Warm and dry Objective Data Vital Signs Vital Signs: Vital Signs - 24 hr 08/19/24 20:00 08/19/24 20:00 08/19/24 20:00 Temperature 98.0 F Pulse Rate 87 85 Respiratory Rate 19 Blood Pressure 143/45 H Pulse Oximetry 93 93 Oxygen Delivery Nasal Cannula Oxygen Flow Rate 2 08/19/24 20:14 08/19/24 20:14 08/19/24 20:27 Temperature Pulse Rate 88 82 Respiratory Rate 18 18 Blood Pressure Pulse Oximetry 96 Oxygen Delivery Nasal Cannula Oxygen Flow Rate 2 08/20/24 00:00 08/20/24 00:00 08/20/24 01:56 Temperature 97.8 F Pulse Rate 81 80 80 Respiratory Rate 16 18 Blood Pressure 117/43 L Pulse Oximetry 91 Oxygen Delivery Oxygen Flow Rate 08/20/24 02:02 08/20/24 04:00 08/20/24 04:00 Temperature 97.1 F L Pulse Rate 83 80 86 Respiratory Rate 18 13 Blood Pressure 133/49 L Pulse Oximetry 96 Oxygen Delivery Oxygen Flow Rate 08/20/24 08:00 08/20/24 08:00 08/20/24 08:00 Temperature 97.4 F L Pulse Rate 103 H 76 Respiratory Rate 16 Blood Pressure 121/48 L Pulse Oximetry 95 97 Oxygen Delivery Nasal Cannula Oxygen Flow Rate 2 08/20/24 08:21 08/20/24 08:21 08/20/24 08:30 Temperature Pulse Rate 83 83 79 Respiratory Rate 20 20 20 Blood Pressure Pulse Oximetry 97 Oxygen Delivery Nasal Cannula Oxygen Flow Rate 2 08/20/24 09:21 08/20/24 09:36 08/20/24 10:00 Temperature 97.4 F L Pulse Rate 103 H 127 H Respiratory Rate 16 18 Blood Pressure 121/48 L 75/40 L Pulse Oximetry 95 91 Oxygen Delivery Nasal Cannula Oxygen Flow Rate 2 08/20/24 10:42 08/20/24 12:00 08/20/24 13:48 Temperature 98.3 F Pulse Rate 99 88 Respiratory Rate 16 20 Blood Pressure 142/54 H Pulse Oximetry 95 94 Oxygen Delivery Nasal Cannula Nasal Cannula Oxygen Flow Rate 1 2 08/20/24 13:48 08/20/24 13:58 Temperature Pulse Rate 88 85 Respiratory Rate 20 20 Blood Pressure Pulse Oximetry Oxygen Delivery Oxygen Flow Rate Intake/Output Intake/Output: Intake & Output 08/17/24 08/18/24 08/19/24 08/20/24 23:59 23:59 23:59 23:59 Intake Total 1979 2770 120 340 Output Total 3 Balance 1979 2770 117 340 Meds/Results Medications: Active Medications Generic Name Dose Route Start Last Admin Trade Name Freq PRN Reason Stop Dose Admin Acetaminophen 650 mg 08/16/24 16:07 08/17/24 21:16 Acetaminophen 325 Mg Tablet PO 650 mg Q4H PRN Administration Mild Pain (1-3) or Fever Acetylcysteine 200 mg 08/17/24 21:00 08/20/24 08:18 Acetylcysteine 20% Inhal Soln 800 Mg/4 Ml Vial INHALATION 200 mg Q12HR MICHAEL Administration Albuterol 2.5 mg 08/16/24 20:00 08/20/24 13:47 Albuterol Sulfate Neb 2.5 Mg/3 Ml Inh INHALATION 2.5 mg Q6HRT MICHAEL Administration Amlodipine Besylate 5 mg 08/16/24 22:30 08/18/24 09:00 Amlodipine Besylate 5 Mg Tablet PO 5 mg DAILY MICHAEL Administration Anastrozole 1 mg 08/17/24 09:00 08/20/24 08:46 Anastrozole (*Chemo) 1 Mg Tablet PO 1 mg DAILY MICHAEL Administration Aspirin 81 mg 08/16/24 22:35 08/20/24 08:46 Aspirin 81 Mg Enteric Tablet PO 81 mg DAILY MICHAEL Administration Bupropion HCl 150 mg 08/16/24 22:35 08/20/24 08:46 Bupropion Hcl Xl (24 Hr) 150 Mg Tabcr PO 150 mg QAM MICHAEL Administration Clonazepam 0.5 mg 08/16/24 23:10 08/19/24 21:39 Clonazepam (*Crx) 0.5 Mg Tablet PO 0.5 mg HS MICHAEL Administration Clopidogrel Bisulfate 600 mg 08/21/24 09:00 Clopidogrel Bisulfate 300 Mg Tablet PO 08/21/24 09:01 ONCE ONE Clopidogrel Bisulfate 75 mg 08/22/24 09:00 Clopidogrel Bisulfate 75 Mg Tablet PO QAM MICHAEL Enoxaparin Sodium 40 mg 08/16/24 16:00 08/19/24 17:25 Enoxaparin 40 Mg/0.4 Ml Syringe SUB-Q 40 mg Q24H MICHAEL Administration Guaifenesin/Dextromethorphan 10 ml 08/16/24 21:00 08/20/24 13:11 Guaifenesin/Dextromethorphan 10 Ml Udc PO Not Given Q4HR MICHAEL Levothyroxine Sodium 75 mcg 08/17/24 06:30 08/20/24 05:42 Levothyroxine Sodium 75 Mcg Tablet PO 75 mcg DAILY@0630 MICHAEL Administration Linaclotide 145 mcg 08/19/24 11:35 08/19/24 12:00 Linaclotide 145 Mcg Capsule PO 145 mcg Q72HR MICHAEL Administration Loratadine 10 mg 08/16/24 22:35 08/20/24 08:46 Loratadine 10 Mg Tablet PO 10 mg QAM MICHAEL Administration Nicotine 1 patch 08/17/24 09:00 08/20/24 08:46 Nicotine (*Pbkc) 21 Mg Patch TRANSDERM 1 patch DAILY MICHAEL Administration Perflutren Lipid Microsphere 0 ml 08/19/24 13:56 Perflutren Lipid Microspheres 1.5 Ml Vial Diluted To 10 Ml Total Volume IV PUSH 08/22/24 13:57 ONCE PRN adequate visualization Protocol Rosuvastatin Calcium 40 mg 08/16/24 23:10 08/19/24 21:39 Rosuvastatin 20 Mg Tablet PO 40 mg HS MICHAEL Administration Ticagrelor 90 mg 08/16/24 21:00 08/20/24 08:46 Ticagrelor 90 Mg Tablet PO 08/20/24 23:59 90 mg Q12HR MICHAEL Administration Radiology Results: ITS Impressions Pulmonary Perfusion Imaging 08/16/24 14:38 IMPRESSION: 1: Intermediate probability for pulmonary embolism. Chest CT 08/18/24 17:10 IMPRESSION: Post radiation change without additional abnormality within the pulmonary parenchyma. Compression of the superior endplate of T11 with dense sclerosis demonstrating progression from the previous examination of the chest (two-view plain film evaluation) on 09/24/2023 Chest X-Ray 08/19/24 14:28 IMPRESSION: No acute cardiopulmonary pathology. Labs Labs: Laboratory Results - last 24 hr 08/20/24 05:41 WBC 10.4 H RBC 2.86 L Hgb 9.4 L Hct 30.4 L MCV 106.3 H MCH 32.9 MCHC 30.9 L RDW 18.5 H Plt Count 249 MPV 10.7 H Immature Gran % (Auto) 1.8 H Neut % (Auto) 69.2 Lymph % (Auto) 12.4 L [place] % (Auto) 12.3 H Eos % (Auto) 4.1 Baso % (Auto) 0.2 Lymph # (Auto) 1.29 [place] # (Auto) 1.3 H Eos # (Auto) 0.4 H Baso # (Auto) 0.0 Abs Immat Gran (auto) 0.19 H Absolute Neuts (auto) 7.2 H Absolute Nucleated RBC 0.000 Band Neutrophils % Not Reportable Nucleated RBC % 0.0 Platelet Estimate Adequate Large Platelets Present Macrocytosis 1+ Schistocytes None seen Sodium 135 L Potassium 3.6 Chloride 107 Carbon Dioxide 22 Anion Gap 6 BUN 28 H D Creatinine 0.99 Estim Creat Clear Calc 31 Estimated GFR 55 L Glucose 81 Calcium 7.8 L Magnesium 2.2 Total Bilirubin 0.3 AST 42 H ALT 44 H Alkaline Phosphatase 45 Total Protein 5.6 L Albumin 3.2 L
[2024-08-20] MEDS: ENOXAPARIN 40 MG/0.4 ML SYRINGE SUB-Q (16:50)
[2024-08-20] MEDS: ROSUVASTATIN 20 MG TABLET 40 MG PO (20:54)
[2024-08-20] MEDS: guaiFENesin 12 HR 600 MG TABCR PO (20:54)
[2024-08-20] MEDS: clonazePAM (*CRX) 0.5 MG TABLET PO (20:55)
[2024-08-21] VITALS (19 sets, daily range): BP systolic 131–140; BP diastolic 50–56; PULSE 84–144; RESP 16–20; TEMP 36.3–36.8; O2SAT 92–97
[2024-08-21] MEDS: ALBUTEROL SULFATE NEB 2.5 MG/3 ML INH INHALATION ×4 (01:24→20:33)
[2024-08-21] MEDS: LEVOTHYROXINE SODIUM 75 MCG TABLET PO (05:36)
[2024-08-21 06:07] LABS: Basophils Percent Auto 0.3 % (0.2-1.2); Eosinophils Percent Auto 9.7 % (0-4.4); Hematocrit 27.1 % (37.0-47.0); Hemoglobin 8.4 g/dL (12.0-15.0); Immature Granulocyte Absolute 0.14 K/mm3 (0.00-0.031); Immature Granulocyte Percent A 1.4 % (0-0.5); Lymphocytes Absolute Auto 1.09 K/mm3 (0.9-3.2); Lymphocytes Percent Auto 10.9 % (18.3-44.2); Mean Corpuscular Hemoglobin 33.1 pg (26-34); Mean Corpuscular Volume 106.7 fl (80-100); Mean Platelet Volume 10.4 fl (7.4-10.4); Monocytes Absolute Auto 1.2 K/mm3 (0.1-0.6); Monocytes Percent Auto 12.1 % (2.6-8.5); Neutrophils Absolute Auto 6.6 K/mm3 (1.3-6.7); Neutrophils Percent Auto 65.6 % (45.5-73.1); Platelet Count Result 222 k/mm3 (150-375); Red Blood Count 2.54 M/mm3 (4.2-5.4); Red Cell Distribution Width 18.7 % (11.5-14.5)
[2024-08-21 06:35] LABS: Albumin Level 2.8 g/dL (3.5-5.1); Anion Gap 4 mmol/L (4-12); Blood Urea Nitrogen 26 mg/dL (7-17); Calcium 8.2 mg/dL (8.4-10.2); Carbon Dioxide 25 mmol/L (22-30); Chloride 106 mmol/L (98-107); Estimated CRCL calculation 27 ml/min; Estimated Glomerular Filt Rate 47; Glucose 107 mg/dL (65-110); Magnesium 2.1 mg/dL (1.6-2.3); Phosphorus 3.7 mg/dL (2.5-4.5); Potassium 3.8 mmol/L (3.4-5.0); Sodium 135 mmol/L (137-145)
[2024-08-21 06:38] LABS: Macrocytosis 1+ (NORMAL); Platelet Estimate Adequate (Adequate); Schistocytes None Seen
[2024-08-21] MEDS: LORATADINE 10 MG TABLET PO (09:28)
[2024-08-21] MEDS: buPROPion HCL XL (24 HR) 150 MG TABCR PO (09:28)
[2024-08-21] MEDS: NICOTINE (*PBKC) 21 MG PATCH 1 PATCH TRANSDERM (09:28)
[2024-08-21] MEDS: ANASTROZOLE (*CHEMO) 1 MG TABLET PO (09:28)
[2024-08-21] MEDS: ASPIRIN 81 MG ENTERIC TABLET PO (09:28)
[2024-08-21] MEDS: guaiFENesin 12 HR 600 MG TABCR PO ×2 (09:28→21:22)
[2024-08-21] MEDS: CLOPIDOGREL BISULFATE 300 MG TABLET 600 MG PO (09:29)
--- NOTE | 2024-08-21 10:41 | P.PNCA_ITS ---
Progress Note: A&P Assessment and Plan (1) Syncope: Code(s): R55 - Syncope and collapse Status: Acute Plan 74-year-old female with: -Syncope -Bradycardia - telemetry shows junctional rhythm with lowest heart rate of 38 -CAD, recent STEMI on 07/09/2024 s/p PPCI (aspiration thrombectomy with penumbra CAT Rx of distal RCA stent thrombosis [culprit lesion] followed by balloon angioplasty using NC balloons with sikh of TAMMY 3 flow and residual 40% stenosis; ISR was noted in old distal RCA stent at the bifurcation of PDA and PL - recommendation was for possible YOEL placement or DCB angioplasty in an elective fashion at a later time), nonobstructive CAD with 50% stenosis in the proximal to mid LAD -V Fib cardiac arrest in 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 - blood culture 1 of 2 bottles growing Staphylococcus capitis -Sepsis secondary bacteremia, UTI -Possible PE -Chronic anemia -CKD Plan: -The most likely etiology of her syncope appears to be vasovagal as it occurred immediately after bowel movement. Patient also endorses orthostatic symptoms. Given hypotension, metoprolol and lisinopril have been held for the time being. Unlikely that the beta-ashley caused this current episode. Moreover patient has been having dizziness and syncope for many years when going from sitting to standing position or after bowel movements which is suggestive of orthostatic hypotension/vasovagal syncope -Fluid resuscitation as needed for orthostatic hypotension. -Event monitor at discharge for 30 days (order placed). -Continue DAPT. However, given bradycardia, transitioned Brilinta to Plavix as bradyarrhythmias are a known side effect of Brilinta. Outpatient follow up with Dr. Marquez for her CAD. -Continue statin. -Avoid AV rakan blocking agents and any blood pressure lowering medications given orthostasis. -Check and replace electrolytes to keep K greater than 4 and magnesium greater than 2 -She is on Lovenox for PE. Monitor closely for any bleeding given triple therapy. If patient will need long-term anticoagulation for PE, then recommend stopping ASA and continuing with Plavix + therapeutic anticoagulation. -Management of other medical problems per primary team. Cardiology will follow along as needed. Subjective Date/time seen: 08/21/24 10:41 Interval history: Reason for visit: Syncope HPI: 74-year-old female with history of CAD, recent STEMI in 07/09/2024 s/p PPCI (aspiration thrombectomy with penumbra CAT Rx of distal RCA stent thrombosis [culprit lesion] followed by balloon angioplasty using NC balloons with sikh of TAMMY 3 flow and residual 40% stenosis; ISR was noted in old distal RCA stent at the bifurcation of PDA and PL- recommendation was for possible YOEL placement or DCB angioplasty in an elective fashion at a later time), nonobstructive CAD with 50% stenosis in the proximal to mid LAD, V Fib cardiac arrest in the sugar laboratory assistant status post successful 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 prior to PCI (during aforementioned STEMI), hypertension, hyperlipidemia, chronic kidney disease, chronic anemia, breast cancer status post mastectomy and chemoradiation with mets to the liver, COPD, GERD, hypothyroidism was [place] [facility] [place] [facility] [place] [facility] [place] is being treated for COPD exacerbation, acute on chronic respiratory failure with hypoxemia and hypercarbia, and possible PE. She also has bacteremia with blood cultures growing Gram-positive cocci in chains. Patient had a syncopal episode today and was noted to be bradycardic on telemetry. Cardiology was consulted for further recommendations. Patient states that she had taken a laxative for having a bowel movement. She was on the toilet and immediately after passing stool she passed out with loss of consciousness for about 30 seconds. This was witnessed by the nurse who called the 2nd nurse to help her. The nurse stated that patient had involuntary bladder movement during this episode. Patient had a thready pulse at this time. She states that patient woke up with painful stimulus. Total loss of consciousness was about 30-35 seconds. Telemetry at this time showed bradycardia with junctional rhythm with lowest heart rate of 38. An EKG after the episode showed sinus rhythm with rate of 80 and inferior Q-waves which is unchanged from her prior EKG on 08/16/2024. Patient reports dizziness, presyncope, syncope for many years whenever she goes from sitting to standing position. Dizziness is more common off all these 3 symptoms. She also notice these symptoms in the past when she had bowel movements. The last time she passed out was many months ago. She lives by herself and states that she either sits on the floor or in a chair when she feels dizzy and then has to get up again by herself. She states that her son's stay with her sometimes. Patient denies any chest pain, palpitations, recent weight gain, leg swelling, orthopnea, PND. Date of service 08/20/2024: Still endorses lightheadedness/dizziness when standing up. Feels okay when sitting down or laying down. Tele with sinus rhythm, no further issues with bradycardia since yesterday afternoon. Date of service 08/21: Feeling a little better today. Tele without further bradycardia or other arrhythmias. Review of Systems Cardiovascular: Cardiovascular: Reports as per HPI Exam Const: General: no acute distress HENMT: Mouth: Yes moist mucous membranes Eyes: General: appearance normal, both eyes and all related structures S clera: sclerae normal Resp: Effort & Inspection: normal respiratory effort Cardio: Rate: regular rate Rhythm: regular rhythm Skin: General skin exam: normal color Neuro: Speech: normal speech Psych: Mental Status: mental status grossly normal Affect: normal affect Objective Data Vital Signs Vital Signs: Vital Signs - 24 hr 08/20/24 10:42 08/20/24 12:00 08/20/24 12:00 Temperature 36.8 C Pulse Rate 99 100 Respiratory Rate 16 Blood Pressure 142/54 H Pulse Oximetry 95 Oxygen Delivery Nasal Cannula Oxygen Flow Rate 1 Fraction of Inspired Oxygen 08/20/24 13:48 08/20/24 13:48 08/20/24 13:58 Temperature Pulse Rate 88 88 85 Respiratory Rate 20 20 20 Blood Pressure Pulse Oximetry 94 Oxygen Delivery Nasal Cannula Oxygen Flow Rate 2 Fraction of Inspired Oxygen 08/20/24 16:00 08/20/24 20:00 08/20/24 20:00 Temperature Pulse Rate 90 103 H Respiratory Rate Blood Pressure Pulse Oximetry 94 Oxygen Delivery Nasal Cannula Oxygen Flow Rate 1 Fraction of Inspired Oxygen 21 08/20/24 20:36 08/20/24 20:38 08/20/24 20:43 Temperature Pulse Rate 101 H 102 H Respiratory Rate 20 20 Blood Pressure Pulse Oximetry 92 Oxygen Delivery Nasal Cannula Oxygen Flow Rate 1 Fraction of Inspired Oxygen 08/20/24 22:00 08/21/24 00:00 08/21/24 01:25 Temperature 36.3 C L Pulse Rate 102 H 96 94 Respiratory Rate 18 20 Blood Pressure 132/50 L Pulse Oximetry 95 Oxygen Delivery Oxygen Flow Rate Fraction of Inspired Oxygen 08/21/24 01:32 08/21/24 04:00 08/21/24 06:00 Temperature 36.8 C Pulse Rate 100 88 87 Respiratory Rate 20 18 Blood Pressure 140/50 L Pulse Oximetry 95 Oxygen Delivery Oxygen Flow Rate Fraction of Inspired Oxygen 08/21/24 07:49 08/21/24 07:49 08/21/24 08:00 Temperature Pulse Rate 84 84 86 Respiratory Rate 20 16 20 Blood Pressure Pulse Oximetry 94 Oxygen Delivery Nasal Cannula Oxygen Flow Rate 1 Fraction of Inspired Oxygen 24 08/21/24 09:17 Temperature Pulse Rate Respiratory Rate Blood Pressure Pulse Oximetry 94 Oxygen Delivery Room Air Oxygen Flow Rate Fraction of Inspired Oxygen Intake/Output Intake/Output: Intake & Output 08/18/24 08/19/24 08/20/24 08/21/24 23:59 23:59 23:59 23:59 Intake Total 2770 120 340 200 Output Total 3 Balance 2770 117 340 200 Meds/Results Medications: Active Medications Generic Name Dose Route Start Last Admin Trade Name Freq PRN Reason Stop Dose Admin Acetaminophen 650 mg 08/16/24 16:07 08/17/24 21:16 Acetaminophen 325 Mg Tablet PO 650 mg Q4H PRN Administration Mild Pain (1-3) or Fever Albuterol 2.5 mg 08/16/24 20:00 08/21/24 07:49 Albuterol Sulfate Neb 2.5 Mg/3 Ml Inh INHALATION 2.5 mg Q6HRT MICHAEL Administration Amlodipine Besylate 5 mg 08/16/24 22:30 08/18/24 09:00 Amlodipine Besylate 5 Mg Tablet PO 5 mg DAILY MICHAEL Administration Anastrozole 1 mg 08/17/24 09:00 08/21/24 09:28 Anastrozole (*Chemo) 1 Mg Tablet PO 1 mg DAILY MICHAEL Administration Aspirin 81 mg 08/16/24 22:35 08/21/24 09:28 Aspirin 81 Mg Enteric Tablet PO 81 mg DAILY MICHAEL Administration Bupropion HCl 150 mg 08/16/24 22:35 08/21/24 09:28 Bupropion Hcl Xl (24 Hr) 150 Mg Tabcr PO 150 mg QAM MICHAEL Administration Clonazepam 0.5 mg 08/16/24 23:10 08/20/24 20:55 Clonazepam (*Crx) 0.5 Mg Tablet PO 0.5 mg HS MICHAEL Administration Clopidogrel Bisulfate 75 mg 08/22/24 09:00 Clopidogrel Bisulfate 75 Mg Tablet PO QAM MICHAEL Enoxaparin Sodium 40 mg 08/16/24 16:00 08/20/24 16:50 Enoxaparin 40 Mg/0.4 Ml Syringe SUB-Q 40 mg Q24H MICHAEL Administration Guaifenesin 600 mg 08/20/24 21:00 08/21/24 09:28 Guaifenesin 12 Hr 600 Mg Tabcr PO 600 mg Q12HR MICHAEL Administration Guaifenesin/Dextromethorphan 10 ml 08/20/24 16:24 Guaifenesin/Dextromethorphan 10 Ml Udc PO Q4HR PRN Cough Levothyroxine Sodium 75 mcg 08/17/24 06:30 08/21/24 05:36 Levothyroxine Sodium 75 Mcg Tablet PO 75 mcg DAILY@0630 MICHAEL Administration Linaclotide 145 mcg 08/19/24 11:35 08/19/24 12:00 Linaclotide 145 Mcg Capsule PO 145 mcg Q72HR MICHAEL Administration Loratadine 10 mg 08/16/24 22:35 08/21/24 09:28 Loratadine 10 Mg Tablet PO 10 mg QAM MICHAEL Administration Nicotine 1 patch 08/17/24 09:00 08/21/24 09:28 Nicotine (*Pbkc) 21 Mg Patch TRANSDERM 1 patch DAILY MICHAEL Administration Perflutren Lipid Microsphere 0 ml 08/19/24 13:56 Perflutren Lipid Microspheres 1.5 Ml Vial Diluted To 10 Ml Total Volume IV PUSH 08/22/24 13:57 ONCE PRN adequate visualization Protocol Rosuvastatin Calcium 40 mg 08/16/24 23:10 08/20/24 20:54 Rosuvastatin 20 Mg Tablet PO 40 mg HS MICHAEL Administration Radiology Results: ITS Impressions Pulmonary Perfusion Imaging 08/16/24 14:38 IMPRESSION: 1: Intermediate probability for pulmonary embolism. Chest CT 08/18/24 17:10 IMPRESSION: Post radiation change without additional abnormality within the pulmonary parenchyma. Compression of the superior endplate of T11 with dense sclerosis demonstrating progression from the previous examination of the chest (two-view plain film evaluation) on 09/24/2023 Chest X-Ray 08/19/24 14:28 IMPRESSION: No acute cardiopulmonary pathology. Venous Doppler Study 08/20/24 18:11 IMPRESSION: 1. No deep venous thrombosis. Labs Labs: Laboratory Results - last 24 hr 08/21/24 05:51 WBC 10.0 RBC 2.54 L Hgb 8.4 L Hct 27.1 L MCV 106.7 H MCH 33.1 MCHC 31.0 L RDW 18.7 H Plt Count 222 MPV 10.4 Immature Gran % (Auto) 1.4 H Neut % (Auto) 65.6 Lymph % (Auto) 10.9 L Josephine % (Auto) 12.1 H Eos % (Auto) 9.7 H Baso % (Auto) 0.3 Lymph # (Auto) 1.09 Josephine # (Auto) 1.2 H Eos # (Auto) 1.0 H Baso # (Auto) 0.0 Abs Immat Gran (auto) 0.14 H Absolute Neuts (auto) 6.6 Absolute Nucleated RBC 0.000 Band Neutrophils % Not Reportable Nucleated RBC % 0.0 Platelet Estimate Adequate Macrocytosis 1+ Schistocytes None seen Sodium 135 L Potassium 3.8 Chloride 106 Carbon Dioxide 25 Anion Gap 4 BUN 26 H Creatinine 1.13 H Estim Creat Clear Calc 27 Estimated GFR 47 L Glucose 107 Calcium 8.2 L Phosphorus 3.7 Magnesium 2.1 Albumin 2.8 L
--- NOTE | 2024-08-21 12:02 | PCRCNOTE ---
HOME O2 EVAL COMPLETE, NO REQUIREMENTS
[2024-08-21] MEDS: METOPROLOL SUCCINATE EXT REL 25 MG TABCR PO (14:04)
--- NOTE | 2024-08-21 15:25 | P.PNIM_ITS ---
Progress Note: A&P Assessment and Plan (1) Acute respiratory failure with hypoxia and hypercarbia: Code(s): J96.01 - Acute respiratory failure with hypoxia; J96.02 - Acute respiratory failure with hypercapnia Status: Acute Assessment and Plan: Patient with acute respiratory failure. ABG 7.33/46/[address] chest shows severe emphysema, biapical scarring. Acute resp failure related to COPD exacerbation and possibly PE. * continue albuterol * supplemental oxygen currently on 1 L wean as tolerated to maintain 92% * home oxygen study pending * CTA to rule in or out PE (2) COPD exacerbation: Code(s): J44.1 - Chronic obstructive pulmonary disease with (acute) exacerbation Status: Acute Assessment and Plan: COPD exacerbation. Treated with Levaquin, Solu-Medrol and DuoNebs * Wean oxygen * Continue scheduled Albuterol. * Continue Mucinex * encouraged smoking cessation (3) Pulmonary embolism: Code(s): I26.99 - Other pulmonary embolism without acute cor pulmonale Status: Acute Assessment and Plan: Concern for PE so VQ scan performed showing intermediate probability of PE. Lovenox started. Dopplers negative * continue Lovenox b.i.d. 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 * metoprolol stopped but resumed due to tachycardia HR in the 120s to 140s discussed with cardiology * Continue ASA. Brilinta was changed to Plavix. * continue with telemetry monitoring (5) Breast cancer metastasized to liver: Qualifiers: Laterality: unspecified laterality Qualified Code(s): C50.919 - Malignant neoplasm of unspecified site of unspecified female breast; C78.7 - Secondary malignant neoplasm of liver and intrahepatic bile duct Code(s): C50.919 - Malignant neoplasm of unspecified site of unspecified female breast; C78.7 - Secondary malignant neoplasm of liver and intrahepatic bile duct Status: Chronic Assessment and Plan: * Continue anastrozole (6) Stage 3b chronic kidney disease: Code(s): N18.32 - Chronic kidney disease, stage 3b Status: Chronic Assessment and Plan: Cr baseline runs 1.1-1.6 Cr stable here * Renally dose medications * Monitor renal function, UOP and electrolytes. * avoid nephrotoxic medications (7) Chronic anemia: Code(s): D64.9 - Anemia, unspecified Status: Chronic Assessment and Plan: No signs of acute bleeding. probably related to metastatic breast CA * Transfuse for hemoglobin less than 7 or symptomatic (8) Hypertension: Code(s): I10 - Essential (primary) hypertension Status: Chronic Assessment and Plan: Patient's blood pressure was reviewed on 08/21, mild HTN * resume metoprolol * monitor BP per unit protocol (9) Hypothyroidism: Code(s): E03.9 - Hypothyroidism, unspecified Status: Chronic Assessment and Plan: * Continue home levothyroxine (10) UTI (urinary tract infection): Code(s): N39.0 - Urinary tract infection, site not specified Status: Resolved Assessment and Plan: UA noted. UCx collected. * Abx started. * UCx grew 10-49K colonies of Enterococcus. * Patient treated with Vanc and completed a course RESOLVED (11) Syncope: Code(s): R55 - Syncope and collapse Status: Acute Assessment and Plan: Patient had syncopal episodes in the afternoon on 08/19, Telemonitor showed sinus bradycardia Echo as above. * Cardiology consulted. * Metoprolol was stopped. Brilinta being converted to Plavix * Tele showing bradycardia resolved but patient is now sinus tachycardic with HR 120's peaked at 140 * Resumed metoprolol after discussion with Cardiology will monitor on telemetry to ensure she does have episodes of bradycardia (12) Bacteremia: Code(s): R78.81 - Bacteremia Status: Resolved Assessment and Plan: BCx grew Staph capitis in one aerobic bottle only This is most likely a contaminant 2nd BCx set remaining negative. RESOLVED Plan Code status: Full code per patient DVT prophylaxis: Lovenox Stress ulcer prophylaxis: NA PT/OT notes: Ambulatory Disposition: Patient continues admission for acute respiratory failure secondary to COPD exacerbation and possible PE he has also had episodes of bradycardia and sinus tachycardia. Patient have home oxygen walk study evaluation for supplemental oxygen needs as well as premedication and CT scan to rule in or out PE. plan is to discharge home when medically stable Time Spent With Patient Time with patient: 15 - 25 minutes Subjective Date/time seen: 08/21/24 15:25 Interval history: 74yo female with breast cancer with metastases to the liver, current smoker, COPD and CAD with a [place] 1 month ago presents the hospital with increased shortness of breath. Currently being treated for possible PE and episode of bradycardia 08/21/2024:Assuming care Patient reported increased SOB today on telemetry her HR is sustaining around 120's but increased to as high as 140's discussed with Cardiology they recommended resuming her metoprolol and see how she responds. Patient otherwise feeling better. Review of Systems Review of Systems: 12 systems were reviewed and are negativ e except for as per HPI. All systems reviewed & are unremarkable except as noted in HPI and below Exam Narrative: Gen - NARD in bed still on oxygen for comfort Respiratory- scattered rhonchi with distant BS but no wheezing CV - RRR S1/S2. tele showing sinus tachycardia Abd - Soft, NT/ND, Positive BS. Ext - No pedal edema Psych - Nml mood and affect Skin - Warm and dry Objective Data Vital Signs Vital Signs: Vital Signs - 24 hr 08/20/24 16:00 08/20/24 20:00 08/20/24 20:00 Temperature Pulse Rate 90 103 H Respiratory Rate Blood Pressure Pulse Oximetry 94 Oxygen Delivery Nasal Cannula Oxygen Flow Rate 1 Fraction of Inspired Oxygen 21 08/20/24 20:36 08/20/24 20:38 08/20/24 20:43 Temperature Pulse Rate 101 H 102 H Respiratory Rate 20 20 Blood Pressure Pulse Oximetry 92 Oxygen Delivery Nasal Cannula Oxygen Flow Rate 1 Fraction of Inspired Oxygen 08/20/24 22:00 08/21/24 00:00 08/21/24 01:25 Temperature 97.3 F L Pulse Rate 102 H 96 94 Respiratory Rate 18 20 Blood Pressure 132/50 L Pulse Oximetry 95 Oxygen Delivery Oxygen Flow Rate Fraction of Inspired Oxygen 08/21/24 01:32 08/21/24 04:00 08/21/24 06:00 Temperature 98.2 F Pulse Rate 100 88 87 Respiratory Rate 20 18 Blood Pressure 140/50 L Pulse Oximetry 95 Oxygen Delivery Oxygen Flow Rate Fraction of Inspired Oxygen 08/21/24 07:49 08/21/24 07:49 08/21/24 08:00 Temperature Pulse Rate 84 84 86 Respiratory Rate 20 16 20 Blood Pressure Pulse Oximetry 94 Oxygen Delivery Nasal Cannula Oxygen Flow Rate 1 Fraction of Inspired Oxygen 24 08/21/24 08:00 08/21/24 08:00 08/21/24 09:17 Temperature Pulse Rate 90 Respiratory Rate Blood Pressure Pulse Oximetry 94 Oxygen Delivery Room Air Room Air Oxygen Flow Rate Fraction of Inspired Oxygen 08/21/24 11:00 08/21/24 11:05 08/21/24 11:20 Temperature Pulse Rate 114 H 144 H 116 H Respiratory Rate Blood Pressure Pulse Oximetry 94 92 94 Oxygen Delivery Room Air Room Air Room Air Oxygen Flow Rate Fraction of Inspired Oxygen 08/21/24 12:00 08/21/24 13:50 08/21/24 14:00 Temperature 97.4 F L Pulse Rate 122 H 87 110 H Respiratory Rate 20 18 Blood Pressure 131/56 L Pulse Oximetry 97 Oxygen Delivery Oxygen Flow Rate Fraction of Inspired Oxygen 08/21/24 14:00 Temperature Pulse Rate 85 Respiratory Rate 20 Blood Pressure Pulse Oximetry Oxygen Delivery Oxygen Flow Rate Fraction of Inspired Oxygen Intake/Output Intake/Output: Intake & Output 08/18/24 08/19/24 08/20/24 08/21/24 23:59 23:59 23:59 23:59 Intake Total 2770 120 340 440 Output Total 3 Balance 2770 117 340 440 Meds/Results Medications: Active Medications Generic Name Dose Route Start Last Admin Trade Name Freq PRN Reason Stop Dose Admin Acetaminophen 650 mg 08/16/24 16:07 08/17/24 21:16 Acetaminophen 325 Mg Tablet PO 650 mg Q4H PRN Administration Mild Pain (1-3) or Fever Albuterol 2.5 mg 08/16/24 20:00 08/21/24 13:53 Albuterol Sulfate Neb 2.5 Mg/3 Ml Inh INHALATION 2.5 mg Q6HRT MICHAEL Administration Amlodipine Besylate 5 mg 08/16/24 22:30 08/18/24 09:00 Amlodipine Besylate 5 Mg Tablet PO 5 mg DAILY MICHAEL Administration Anastrozole 1 mg 08/17/24 09:00 08/21/24 09:28 Anastrozole (*Chemo) 1 Mg Tablet PO 1 mg DAILY MICHAEL Administration Aspirin 81 mg 08/16/24 22:35 08/21/24 09:28 Aspirin 81 Mg Enteric Tablet PO 81 mg DAILY MICHAEL Administration Bupropion HCl 150 mg 08/16/24 22:35 08/21/24 09:28 Bupropion Hcl Xl (24 Hr) 150 Mg Tabcr PO 150 mg QAM MICHAEL Administration Clonazepam 0.5 mg 08/16/24 23:10 08/20/24 20:55 Clonazepam (*Crx) 0.5 Mg Tablet PO 0.5 mg HS MICHAEL Administration Clopidogrel Bisulfate 75 mg 08/22/24 09:00 Clopidogrel Bisulfate 75 Mg Tablet PO QAM MICHAEL Diphenhydramine HCl 50 mg 08/21/24 15:22 Diphenhydramine Hcl Inj 50 Mg/Ml Vial IV PUSH 08/21/24 15:23 ONCE ONE Enoxaparin Sodium 40 mg 08/16/24 16:00 08/20/24 16:50 Enoxaparin 40 Mg/0.4 Ml Syringe SUB-Q 40 mg Q24H MICHAEL Administration Guaifenesin 600 mg 08/20/24 21:00 08/21/24 09:28 Guaifenesin 12 Hr 600 Mg Tabcr PO 600 mg Q12HR MICHAEL Administration Guaifenesin/Dextromethorphan 10 ml 08/20/24 16:24 Guaifenesin/Dextromethorphan 10 Ml Udc PO Q4HR PRN Cough Levothyroxine Sodium 75 mcg 08/17/24 06:30 08/21/24 05:36 Levothyroxine Sodium 75 Mcg Tablet PO 75 mcg DAILY@0630 MICHAEL Administration Linaclotide 145 mcg 08/19/24 11:35 08/19/24 12:00 Linaclotide 145 Mcg Capsule PO 145 mcg Q72HR MICHAEL Administration Loratadine 10 mg 08/16/24 22:35 08/21/24 09:28 Loratadine 10 Mg Tablet PO 10 mg QAM MICHAEL Administration Metoprolol Succinate 25 mg 08/21/24 13:50 08/21/24 14:04 Metoprolol Succinate Ext Rel 25 Mg Tabcr PO 25 mg QAM MICHAEL Administration Nicotine 1 patch 08/17/24 09:00 08/21/24 09:28 Nicotine (*Pbkc) 21 Mg Patch TRANSDERM 1 patch DAILY MICHAEL Administration Perflutren Lipid Microsphere 0 ml 08/19/24 13:56 Perflutren Lipid Microspheres 1.5 Ml Vial Diluted To 10 Ml Total Volume IV PUSH 08/22/24 13:57 ONCE PRN adequate visualization Protocol Prednisone 40 mg/ Prednisone 50 mg 08/21/24 15:25 10 mg PO 08/22/24 03:26 Q6H MICHAEL Rosuvastatin Calcium 40 mg 08/16/24 23:10 08/20/24 20:54 Rosuvastatin 20 Mg Tablet PO 40 mg HS MICHAEL Administration Radiology Results: ITS Impressions Pulmonary Perfusion Imaging 08/16/24 14:38 IMPRESSION: 1: Intermediate probability for pulmonary embolism. Chest CT 08/18/24 17:10 IMPRESSION: Post radiation change without additional abnormality within the pulmonary parenchyma. Compression of the superior endplate of T11 with dense sclerosis demonstrating progression from the previous examination of the chest (two-view plain film evaluation) on 09/24/2023 Chest X-Ray 08/19/24 14:28 IMPRESSION: No acute cardiopulmonary pathology. Venous Doppler Study 08/20/24 18:11 IMPRESSION: 1. No deep venous thrombosis. Labs Labs: Laboratory Results - last 24 hr 08/21/24 05:51 WBC 10.0 RBC 2.54 L Hgb 8.4 L Hct 27.1 L MCV 106.7 H MCH 33.1 MCHC 31.0 L RDW 18.7 H Plt Count 222 MPV 10.4 Immature Gran % (Auto) 1.4 H Neut % (Auto) 65.6 Lymph % (Auto) 10.9 L [place] % (Auto) 12.1 H Eos % (Auto) 9.7 H Baso % (Auto) 0.3 Lymph # (Auto) 1.09 [place] # (Auto) 1.2 H Eos # (Auto) 1.0 H Baso # (Auto) 0.0 Abs Immat Gran (auto) 0.14 H Absolute Neuts (auto) 6.6 Absolute Nucleated RBC 0.000 Band Neutrophils % Not Reportable Nucleated RBC % 0.0 Platelet Estimate Adequate Macrocytosis 1+ Schistocytes None seen Sodium 135 L Potassium 3.8 Chloride 106 Carbon Dioxide 25 Anion Gap 4 BUN 26 H Creatinine 1.13 H Estim Creat Clear Calc 27 Estimated GFR 47 L Glucose 107 Calcium 8.2 L Phosphorus 3.7 Magnesium 2.1 Albumin 2.8 L Quality VTE Prophylaxis VTE prophylaxis: mechanical ordered and pharmacologic ordered -Patient's previous records reviewed on admission -ER notes reviewed in detail on admission -discussed all findings and current treatment plan with patient/Family/POA -Consultations reviewed for recommendations -Patient's disposition for safe discharge discussed with shelter case manager Dictation performed by [employer] direct speech recognition software, therefore seismology teacher variants and typographical errors may occur. Hospitalist MIPS Advance Care Plan I have confirmed that the patient's Advanced Care Plan is present, code status is documented, or surrogate decision maker is listed in patient medical record.: Yes Medication Reconciliation I have utilized all available resources to obtain, update and review the patients current medications (includes all prescriptions, OTC, herbals, cannabis, and nutritional supplements).: Yes The patient is not eligible for med reconciliation; the patient is in a emergent medical situation where delaying treatment would jeopardize the patients health.: No
[2024-08-21] MEDS: ENOXAPARIN 40 MG/0.4 ML SYRINGE SUB-Q (16:46)
[2024-08-21] MEDS: predniSONE 40 MG, predniSONE 10 MG 50 MG PO ×2 (16:47→21:22)
[2024-08-21] MEDS: clonazePAM (*CRX) 0.5 MG TABLET PO (21:22)
[2024-08-21] MEDS: ROSUVASTATIN 20 MG TABLET 40 MG PO (21:22)
[2024-08-22] VITALS (17 sets, daily range): BP systolic 123–143; BP diastolic 50–61; PULSE 80–98; RESP 16–20; TEMP 36.3–37.1; O2SAT 91–98
[2024-08-22] MEDS: ALBUTEROL SULFATE NEB 2.5 MG/3 ML INH INHALATION ×3 (02:51→20:21)
[2024-08-22] MEDS: predniSONE 40 MG, predniSONE 10 MG 50 MG PO ×2 (04:02→09:27)
[2024-08-22] MEDS: diphenhydrAMINE HCl INJ 50 MG/ML VIAL IV PUSH (04:02)
[2024-08-22 06:14] LABS: Hematocrit 29.1 % (37.0-47.0); Hemoglobin 9.2 g/dL (12.0-15.0); Mean Corpuscular HGB Conc 31.6 g/dl (32-36); Mean Corpuscular Hemoglobin 32.7 pg (26-34); Mean Corpuscular Volume 103.6 fl (80-100); Mean Platelet Volume 10.7 fl (7.4-10.4); Platelet Count Result 245 k/mm3 (150-375); Red Blood Count 2.81 M/mm3 (4.2-5.4); Red Cell Distribution Width 17.7 % (11.5-14.5); White Blood Count 10.1 K/mm3 (4.5-10.0)
[2024-08-22] MEDS: LEVOTHYROXINE SODIUM 75 MCG TABLET PO (06:20)
[2024-08-22 06:23] LABS: Alanine Aminotransferase 48 U/L (6-35); Albumin Level 3.3 g/dL (3.5-5.1); Alkaline Phosphatase 59 U/L (38-126); Anion Gap 5 mmol/L (4-12); Aspartate Amino Transferase 37 U/L (14-36); Bilirubin,Total 0.4 mg/dL (0.2-1.3); Blood Urea Nitrogen 26 mg/dL (7-17); Calcium 8.7 mg/dL (8.4-10.2); Carbon Dioxide 28 mmol/L (22-30); Chloride 102 mmol/L (98-107); Estimated CRCL calculation 33 ml/min; Estimated Glomerular Filt Rate 60; Glucose 221 mg/dL (65-110); Magnesium 2.2 mg/dL (1.6-2.3); Potassium 4.1 mmol/L (3.4-5.0); Sodium 135 mmol/L (137-145); Total Protein 5.7 g/dL (6.3-8.2)
[2024-08-22] MEDS: diphenhydrAMINE HCl CAP 25 MG CAPSULE PO (09:28)
[2024-08-22] MEDS: NICOTINE (*PBKC) 21 MG PATCH 1 PATCH TRANSDERM (09:29)
[2024-08-22] MEDS: buPROPion HCL XL (24 HR) 150 MG TABCR PO (09:32)
[2024-08-22] MEDS: CLOPIDOGREL BISULFATE 75 MG TABLET PO (09:32)
[2024-08-22] MEDS: ANASTROZOLE (*CHEMO) 1 MG TABLET PO (09:32)
[2024-08-22] MEDS: guaiFENesin 12 HR 600 MG TABCR PO ×2 (09:32→20:58)
[2024-08-22] MEDS: LORATADINE 10 MG TABLET PO (09:32)
[2024-08-22] MEDS: ASPIRIN 81 MG ENTERIC TABLET PO (09:32)
[2024-08-22] MEDS: LINACLOTIDE 145 MCG CAPSULE PO (09:32)
[2024-08-22] MEDS: METOPROLOL SUCCINATE EXT REL 25 MG TABCR PO (09:33)
--- NOTE | 2024-08-22 09:48 | PCPTNOTE ---
Patient requests PT return later after she returns from CT Scan. PT will continue to follow.
--- NOTE | 2024-08-22 10:30 | P.PNIM_ITS ---
Progress Note: A&P Assessment and Plan (1) Acute respiratory failure with hypoxia and hypercarbia: Code(s): J96.01 - Acute respiratory failure with hypoxia; J96.02 - Acute respiratory failure with hypercapnia Status: Acute Assessment and Plan: Patient with acute respiratory failure. ABG 7.33/46/[address] chest shows severe emphysema, biapical scarring. Acute resp failure related to COPD exacerbation and possibly PE. * continue albuterol * supplemental oxygen currently on 1 L wean as tolerated to maintain 92% * home oxygen study pending * CTA Negative for PE stopped lovenox (2) COPD exacerbation: Code(s): J44.1 - Chronic obstructive pulmonary disease with (acute) exacerbation Status: Acute Assessment and Plan: COPD exacerbation. Treated with Levaquin, Solu-Medrol and DuoNebs * Wean oxygen * Continue scheduled Albuterol. 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 * metoprolol stopped but resumed due to tachycardia HR in the 120s to 140s discussed with cardiology * Continue ASA. Brilinta was changed to Plavix. * continue with telemetry monitoring (4) Breast cancer metastasized to liver: Qualifiers: Laterality: unspecified laterality Qualified Code(s): C50.919 - Malignant neoplasm of unspecified site of unspecified female breast; C78.7 - Secondary malignant neoplasm of liver and intrahepatic bile duct Code(s): C50.919 - Malignant neoplasm of unspecified site of unspecified female breast; C78.7 - Secondary malignant neoplasm of liver and intrahepatic bile duct Status: Chronic Assessment and Plan: * Continue anastrozole (5) Stage 3b chronic kidney disease: Code(s): N18.32 - Chronic kidney disease, stage 3b Status: Chronic Assessment and Plan: Cr baseline runs 1.1-1.6 Cr stable here * Renally dose medications * Monitor renal function, UOP and electrolytes. * avoid nephrotoxic medications (6) Chronic anemia: Code(s): D64.9 - Anemia, unspecified Status: Chronic Assessment and Plan: No signs of acute bleeding. probably related to metastatic breast CA * Transfuse for hemoglobin less than 7 or symptomatic (7) Hypertension: Code(s): I10 - Essential (primary) hypertension Status: Chronic Assessment and Plan: Patient's blood pressure was reviewed on 08/21, mild HTN * resume metoprolol * monitor BP per unit protocol (8) Hypothyroidism: Code(s): E03.9 - Hypothyroidism, unspecified Status: Chronic Assessment and Plan: * Continue home levothyroxine (9) UTI (urinary tract infection): Code(s): N39.0 - Urinary tract infection, site not specified Status: Resolved Assessment and Plan: UA noted. UCx collected. * Abx started. * UCx grew 10-49K colonies of Enterococcus. * Patient treated with Vanc and completed a course RESOLVED (10) Syncope: Code(s): R55 - Syncope and collapse Status: Acute Assessment and Plan: Patient had syncopal episodes in the afternoon on 08/19, Telemonitor showed sinus bradycardia Echo as above. * Cardiology consulted. * Metoprolol was stopped. Brilinta being converted to Plavix * Tele showing bradycardia resolved but patient is now sinus tachycardic with HR 120's peaked at 140 * Resumed metoprolol after discussion with Cardiology will monitor on telemetry to ensure she does have episodes of bradycardia (11) Bacteremia: Code(s): R78.81 - Bacteremia Status: Acute Assessment and Plan: BCx grew Staph capitis second bottle grew gram positive coccobacilli, This is most likely a contaminant * 2nd BCx ordered 08/22 (12) Pulmonary embolism: Code(s): I26.99 - Other pulmonary embolism without acute cor pulmonale Status: Ruled-out Assessment and Plan: Concern for PE so VQ scan performed showing intermediate probability of PE. Lovenox started. Dopplers negative * continue Lovenox b.i.d. * will premedicate patient due to contrast allergy and get CTA to rule in or out PE * will transition to oral Eliquis is CTA shows PE RULED Out Plan Code status: Full code per patient DVT prophylaxis: Lovenox Stress ulcer prophylaxis: NA PT/OT notes: Ambulatory Disposition: Patient continues admission for acute respiratory failure secondary to COPD exacerbation and possible PE which was ruled out she had also had episodes of bradycardia and sinus tachycardia. plan is to discharge home when medically stable Time Spent With Patient Time with patient: 15 - 25 minutes Subjective Date/time seen: 08/22/24 10:30 Interval history: 74yo female with breast cancer with metastases to the liver, current smoker, COPD and CAD with a HI 1 month ago presents the hospital with increased shortness of breath. Currently being treated for possible PE and episode of bradycardia 08/22/2024: Patient still with moderate to severe SOB with any exertion, nursing staff reported that her oxygen did drop to mid 80's when she was assisted to the bathroom. Review of Systems Review of Systems: 12 systems were reviewed and are negativ e except for as per HPI. All systems reviewed & are unremarkable except as noted in HPI and below Exam Narrative: Gen - NARD in bed still on oxygen for comfort Respiratory- scattered rhonchi with distant BS but no wheezing CV - RRR S1/S2. tele showing sinus tachycardia Abd - Soft, NT/ND, Positive BS. Ext - No pedal edema Psych - Nml mood and affect Skin - Warm and dry Objective Data Vital Signs Vital Signs: Vital Signs - 24 hr 08/21/24 11:00 08/21/24 11:05 08/21/24 11:20 Temperature Pulse Rate 114 H 144 H 116 H Respiratory Rate Blood Pressure Pulse Oximetry 94 92 94 Oxygen Delivery Room Air Room Air Room Air Oxygen Flow Rate 08/21/24 12:00 08/21/24 13:50 08/21/24 14:00 Temperature 97.4 F L Pulse Rate 122 H 87 110 H Respiratory Rate 20 18 Blood Pressure 131/56 L Pulse Oximetry 97 Oxygen Delivery Oxygen Flow Rate 08/21/24 14:00 08/21/24 16:00 08/21/24 20:00 Temperature Pulse Rate 85 97 Respiratory Rate 20 Blood Pressure Pulse Oximetry 94 Oxygen Delivery Nasal Cannula Oxygen Flow Rate 2 08/21/24 20:00 08/21/24 20:35 08/21/24 20:37 Temperature Pulse Rate 99 95 95 Respiratory Rate 16 16 Blood Pressure Pulse Oximetry 93 Oxygen Delivery Nasal Cannula Oxygen Flow Rate 1.5 08/21/24 22:00 08/22/24 00:00 08/22/24 02:54 Temperature 97.8 F Pulse Rate 99 86 87 Respiratory Rate 18 16 Blood Pressure 140/55 L Pulse Oximetry 94 Oxygen Delivery Oxygen Flow Rate 08/22/24 02:58 08/22/24 04:00 08/22/24 06:00 Temperature 97.5 F L Pulse Rate 87 89 98 Respiratory Rate 16 18 Blood Pressure 137/61 Pulse Oximetry 95 96 Oxygen Delivery Nasal Cannula Oxygen Flow Rate 1.5 08/22/24 09:33 Temperature Pulse Rate 89 Respiratory Rate Blood Pressure Pulse Oximetry Oxygen Delivery Oxygen Flow Rate Intake/Output Intake/Output: Intake & Output 08/19/24 08/20/24 08/21/24 08/22/24 23:59 23:59 23:59 23:59 Intake Total 120 340 680 400 Output Total 3 Balance 117 340 680 400 Meds/Results Medications: Active Medications Generic Name Dose Route Start Last Admin Trade Name Freq PRN Reason Stop Dose Admin Acetaminophen 650 mg 08/16/24 16:07 08/17/24 21:16 Acetaminophen 325 Mg Tablet PO 650 mg Q4H PRN Administration Mild Pain (1-3) or Fever Albuterol 2.5 mg 08/16/24 20:00 08/22/24 09:52 Albuterol Sulfate Neb 2.5 Mg/3 Ml Inh INHALATION Not Given Q6HRT MICHAEL Amlodipine Besylate 5 mg 08/16/24 22:30 08/18/24 09:00 Amlodipine Besylate 5 Mg Tablet PO 5 mg DAILY MICHAEL Administration Anastrozole 1 mg 08/17/24 09:00 08/22/24 09:32 Anastrozole (*Chemo) 1 Mg Tablet PO 1 mg DAILY MICHAEL Administration Aspirin 81 mg 08/16/24 22:35 08/22/24 09:32 Aspirin 81 Mg Enteric Tablet PO 81 mg DAILY MICHAEL Administration Bupropion HCl 150 mg 08/16/24 22:35 08/22/24 09:32 Bupropion Hcl Xl (24 Hr) 150 Mg Tabcr PO 150 mg QAM MICHAEL Administration Clonazepam 0.5 mg 08/16/24 23:10 08/21/24 21:22 Clonazepam (*Crx) 0.5 Mg Tablet PO 0.5 mg HS MICHAEL Administration Clopidogrel Bisulfate 75 mg 08/22/24 09:00 08/22/24 09:32 Clopidogrel Bisulfate 75 Mg Tablet PO 75 mg QAM MICHAEL Administration Enoxaparin Sodium 40 mg 08/16/24 16:00 08/21/24 16:46 Enoxaparin 40 Mg/0.4 Ml Syringe SUB-Q 40 mg Q24H MICHAEL Administration Guaifenesin 600 mg 08/20/24 21:00 08/22/24 09:32 Guaifenesin 12 Hr 600 Mg Tabcr PO 600 mg Q12HR MICHAEL Administration Guaifenesin/Dextromethorphan 10 ml 08/20/24 16:24 Guaifenesin/Dextromethorphan 10 Ml Udc PO Q4HR PRN Cough Levothyroxine Sodium 75 mcg 08/17/24 06:30 08/22/24 06:20 Levothyroxine Sodium 75 Mcg Tablet PO 75 mcg DAILY@0630 MICHAEL Administration Linaclotide 145 mcg 08/19/24 11:35 08/22/24 09:32 Linaclotide 145 Mcg Capsule PO 145 mcg Q72HR MICHAEL Administration Loratadine 10 mg 08/16/24 22:35 08/22/24 09:32 Loratadine 10 Mg Tablet PO 10 mg QAM MICHAEL Administration Metoprolol Succinate 25 mg 08/21/24 13:50 08/22/24 09:33 Metoprolol Succinate Ext Rel 25 Mg Tabcr PO 25 mg QAM MICHAEL Administration Nicotine 1 patch 08/17/24 09:00 08/22/24 09:29 Nicotine (*Pbkc) 21 Mg Patch TRANSDERM 1 patch DAILY MICHAEL Administration Perflutren Lipid Microsphere 0 ml 08/19/24 13:56 Perflutren Lipid Microspheres 1.5 Ml Vial Diluted To 10 Ml Total Volume IV PUSH 08/22/24 13:57 ONCE PRN adequate visualization Protocol Rosuvastatin Calcium 40 mg 08/16/24 23:10 08/21/24 21:22 Rosuvastatin 20 Mg Tablet PO 40 mg HS MICHAEL Administration Radiology Results: ITS Impressions Pulmonary Perfusion Imaging 08/16/24 14:38 IMPRESSION: 1: Intermediate probability for pulmonary embolism. Chest CT 08/18/24 17:10 IMPRESSION: Post radiation change without additional abnormality within the pulmonary parenchyma. Compression of the superior endplate of T11 with dense sclerosis demonstrating progression from the previous examination of the chest (two-view plain film evaluation) on 09/24/2023 Chest X-Ray 08/19/24 14:28 IMPRESSION: No acute cardiopulmonary pathology. Venous Doppler Study 08/20/24 18:11 IMPRESSION: 1. No deep venous thrombosis. Labs Labs: Laboratory Results - last 24 hr 08/22/24 05:43 WBC 10.1 H RBC 2.81 L Hgb 9.2 L Hct 29.1 L MCV 103.6 H MCH 32.7 MCHC 31.6 L RDW 17.7 H Plt Count 245 MPV 10.7 H Sodium 135 L Potassium 4.1 Chloride 102 Carbon Dioxide 28 Anion Gap 5 BUN 26 H Creatinine 0.91 Estim Creat Clear Calc 33 Estimated GFR 60 Glucose 221 H Calcium 8.7 Magnesium 2.2 Total Bilirubin 0.4 AST 37 H ALT 48 H Alkaline Phosphatase 59 Total Protein 5.7 L Albumin 3.3 L Quality VTE Prophylaxis VTE prophylaxis: mechanical ordered and pharmacologic ordered -Patient's previous records reviewed on admission -ER notes reviewed in detail on admission -discussed all findings and current treatment plan with patient/Family/POA -Consultations reviewed for recommendations -Patient's disposition for safe discharge discussed with assistant case manager Dictation performed by [employer] direct speech recognition software, therefore elevator adjuster variants and typographical errors may occur. Hospitalist MIPS Advance Care Plan I have confirmed that the patient's Advanced Care Plan is present, code status is documented, or surrogate decision maker is listed in patient medical record.: Yes Medication Reconciliation I have utilized all available resources to obtain, update and review the patients current medications (includes all prescriptions, OTC, herbals, cannabis, and nutritional supplements).: Yes The patient is not eligible for med reconciliation; the patient is in a emergent medical situation where delaying treatment would jeopardize the patients health.: No
[2024-08-22] MEDS: ROSUVASTATIN 20 MG TABLET 40 MG PO (20:58)
[2024-08-22] MEDS: clonazePAM (*CRX) 0.5 MG TABLET PO (20:58)
[2024-08-23] VITALS (20 sets, daily range): BP systolic 111–124; BP diastolic 45–52; PULSE 75–108; RESP 16–24; TEMP 36.2–36.8; O2SAT 87–95
[2024-08-23] MEDS: ALBUTEROL SULFATE NEB 2.5 MG/3 ML INH INHALATION ×4 (02:12→20:56)
[2024-08-23 05:27] LABS: Hematocrit 25.9 % (37.0-47.0); Hemoglobin 8.2 g/dL (12.0-15.0); Mean Corpuscular HGB Conc 31.7 g/dl (32-36); Mean Corpuscular Hemoglobin 32.8 pg (26-34); Mean Corpuscular Volume 103.6 fl (80-100); Mean Platelet Volume 10.2 fl (7.4-10.4); Platelet Count Result 231 k/mm3 (150-375); Red Cell Distribution Width 17.8 % (11.5-14.5); White Blood Count 14.8 K/mm3 (4.5-10.0)
[2024-08-23 05:39] LABS: Alanine Aminotransferase 48 U/L (6-35); Albumin Level 2.9 g/dL (3.5-5.1); Alkaline Phosphatase 58 U/L (38-126); Anion Gap 2 mmol/L (4-12); Aspartate Amino Transferase 33 U/L (14-36); Bilirubin,Total 0.2 mg/dL (0.2-1.3); Blood Urea Nitrogen 38 mg/dL (7-17); Calcium 8.9 mg/dL (8.4-10.2); Carbon Dioxide 30 mmol/L (22-30); Chloride 102 mmol/L (98-107); Estimated CRCL calculation 22 ml/min; Estimated Glomerular Filt Rate 36; Glucose 134 mg/dL (65-110); Magnesium 2.2 mg/dL (1.6-2.3); Potassium 3.9 mmol/L (3.4-5.0); Sodium 134 mmol/L (137-145); Total Protein 5.2 g/dL (6.3-8.2)
[2024-08-23] MEDS: LEVOTHYROXINE SODIUM 75 MCG TABLET PO (05:50)
[2024-08-23] MEDS: CLOPIDOGREL BISULFATE 75 MG TABLET PO (08:32)
[2024-08-23] MEDS: ANASTROZOLE (*CHEMO) 1 MG TABLET PO (08:32)
[2024-08-23] MEDS: NICOTINE (*PBKC) 21 MG PATCH 1 PATCH TRANSDERM (08:32)
[2024-08-23] MEDS: guaiFENesin 12 HR 600 MG TABCR PO ×2 (08:32→21:21)
[2024-08-23] MEDS: METOPROLOL SUCCINATE EXT REL 25 MG TABCR PO (08:32)
[2024-08-23] MEDS: buPROPion HCL XL (24 HR) 150 MG TABCR PO (08:32)
[2024-08-23] MEDS: LORATADINE 10 MG TABLET PO (08:32)
[2024-08-23] MEDS: ASPIRIN 81 MG ENTERIC TABLET PO (08:32)
[2024-08-23] MEDS: LINEZOLID 600 MG TABLET PO ×2 (09:51→21:21)
--- NOTE | 2024-08-23 13:36 | HOMEO2EVAL ---
Evaluation was performed at [facility] Home Oxygen Evaluation RC: Home Oxygen (O2) Evaluation Start: 08/20/24 16:39 Freq: ONCE Status: Active Protocol: RPE Activity Type Activity Date Activity User E-sign Co-sign Detail Recorded Client Recorded Date Recorded By Document 08/23/24 13:15 RILEY [email or web address] 08/23/24 13:35 RILEY Document 08/23/24 13:16 RILEY [email or web address] 08/23/24 13:35 RILEY Document 08/23/24 13:20 RILEY [email or web address] 08/23/24 13:35 RILEY Document 08/23/24 13:30 RILEY [email or web address] 08/23/24 13:35 RILEY 08/23/24 08/23/24 08/23/24 13:15 13:16 13:20 Home O2 Evaluation [Oxygen] -Test Phase Resting Resting Exercise -Oxygen Delivery Room Air Nasal Cannula Nasal Cannula -Oxygen Flow Rate (L/min) 1 1 [Pulse Oximetry] -Pulse Oximetry (90-100 %) 87 L 92 94 [Pulse Rate] -Pulse Rate (60-100 beats/min) 85 108 H [Exercise] -Ambulation Distance (feet) 300 -Ambulation Distance (meters) 91.43 [Comments] -Home Oxygen Evaluation Comments Pt requires 1 liter home o2 with rest and activity [Charges] -Evaluation Charges O2 Evaluation by Pulmonary 08/23/24 13:30 Home O2 Evaluation [Oxygen] -Test Phase Resting -Oxygen Delivery Nasal Cannula -Oxygen Flow Rate (L/min) 1 [Pulse Oximetry] -Pulse Oximetry (90-100 %) 93 [Pulse Rate] -Pulse Rate (60-100 beats/min) 90 [Exercise] -Ambulation Distance (feet) -Ambulation Distance (meters) [Comments] -Home Oxygen Evaluation Comments [Charges] -Evaluation Charges
--- NOTE | 2024-08-23 13:47 | PCRCNOTE ---
Home O2 eval done, Pt requires 1 liters O2 resting and activity Set up with [facility] [phone] tank in room for transport home, will receive a POC unit once D/C home
--- NOTE | 2024-08-23 14:59 | P.PNIM_ITS ---
Progress Note: A&P Assessment and Plan (1) Acute respiratory failure with hypoxia and hypercarbia: Code(s): J96.01 - Acute respiratory failure with hypoxia; J96.02 - Acute respiratory failure with hypercapnia Status: Acute Assessment and Plan: Patient with acute respiratory failure. ABG 7.33/46/[address] chest shows severe emphysema, biapical scarring. Acute resp failure related to COPD exacerbation and possibly PE. * continue albuterol * supplemental oxygen currently on 1 L wean as tolerated to maintain 92% * home oxygen study currently does not met for oxygen however patient does have episodes of low oxygen saturation with activity * CTA Negative for PE stopped lovenox (2) COPD exacerbation: Code(s): J44.1 - Chronic obstructive pulmonary disease with (acute) exacerbation Status: Acute Assessment and Plan: COPD exacerbation. Treated with Levaquin, Solu-Medrol and DuoNebs * Wean oxygen * Continue scheduled Albuterol. 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 * metoprolol stopped but resumed due to tachycardia HR in the 120s to 140s discussed with cardiology * Continue ASA. Brilinta was changed to Plavix. * continue with telemetry monitoring (4) Breast cancer metastasized to liver: Qualifiers: Laterality: unspecified laterality Qualified Code(s): C50.919 - Malignant neoplasm of unspecified site of unspecified female breast; C78.7 - Se condary malignant neoplasm of liver and intrahepatic bile duct Code(s): C50.919 - Malignant neoplasm of unspecified site of unspecified female breast; C78.7 - Secondary malignant neoplasm of liver and intrahepatic bile duct Status: Chronic Assessment and Plan: * Continue anastrozole (5) Stage 3b chronic kidney disease: Code(s): N18.32 - Chronic kidney disease, stage 3b Status: Chronic Assessment and Plan: Cr baseline runs 1.1-1.6 Cr stable here * Renally dose medications * Monitor renal function, UOP and electrolytes. * avoid nephrotoxic medications (6) Chronic anemia: Code(s): D64.9 - Anemia, unspecified Status: Chronic Assessment and Plan: No signs of acute bleeding. probably related to metastatic breast CA * Transfuse for hemoglobin less than 7 or symptomatic (7) Hypertension: Code(s): I10 - Essential (primary) hypertension Status: Chronic Assessment and Plan: Patient's blood pressure was reviewed on 08/21, mild HTN * resume metoprolol * monitor BP per unit protocol L (8) Hypothyroidism: Code(s): E03.9 - Hypothyroidism, unspecified Status: Chronic Assessment and Plan: * Continue home levothyroxine (9) UTI (urinary tract infection): Code(s): N39.0 - Urinary tract infection, site not specified Status: Resolved Assessment and Plan: UA noted. UCx collected. atient treated with Vanc and completed a course only 3 days since patient was asymptomatic * Abx started. * UCx grew 10-49K colonies of Enterococcus. * due to the malodorous odor from her urine and increase in leukocytosis will treat with linezolid 7 days based off of culture and sensitivities (10) Syncope: Code(s): R55 - Syncope and collapse Status: Acute Assessment and Plan: Patient had syncopal episodes in the afternoon on 08/19, Telemonitor showed sinus bradycardia Echo as above. * Cardiology consulted. * Metoprolol was stopped. Brilinta being converted to Plavix * Tele showing bradycardia resolved but patient is now sinus tachycardic with HR 120's peaked at 140 * Resumed metoprolol after discussion with Cardiology will monitor on telemetry to ensure she does have episodes of bradycardia (11) Bacteremia: Code(s): R78.81 - Bacteremia Status: Acute Assessment and Plan: BCx grew Staph capitis second bottle grew gram positive coccobacilli, This is most likely a contaminant * 2nd BCx ordered 08/22 NGTD (12) Pulmonary embolism: Code(s): I26.99 - Other pulmonary embolism without acute cor pulmonale Status: Ruled-out Assessment and Plan: Concern for PE so VQ scan performed showing intermediate probability of PE. Lovenox started. Dopplers negative * continue Lovenox b.i.d. * will premedicate patient due to contrast allergy and get CTA to rule in or out PE * will transition to oral Eliquis is CTA shows PE RULED Out Plan Code status: Full code per patient DVT prophylaxis: Lovenox Stress ulcer prophylaxis: NA PT/OT notes: Ambulatory Disposition: Patient continues admission for acute respiratory failure secondary to COPD exacerbation and possible PE which was ruled out she had also had episodes of bradycardia and sinus tachycardia. patient will likely need oxygen p.r.n. with activity. plan is to discharge home when medically stable Time Spent With Patient Time with patient: 15 - 25 minutes Subjective Date/time seen: 08/23/24 14:59 Interval history: 74yo female with breast cancer with metastases to the liver, current smoker, COPD and CAD with a [place] 1 month ago presents the hospital with increased shortness of breath. Currently being treated for possible PE and episode of bradycardia 08/23/2024: Patient reported improvement to her SOB with activity overnight and was not requiring oxygen when ambulating to the room. Patient denied CP, N/V and urinary symptoms however did notice a malodorous smell to patient's urine which was positive for Enterococcus. Review of Systems Review of Systems: 12 systems were reviewed and are negativ e except for as per HPI. All systems reviewed & are unremarkable except as noted in HPI and below Exam Narrative: Gen - NARD in bed still on oxygen for comfort Respiratory- scattered rhonchi with distant BS but no wheezing CV - RRR S1/S2. tele showing sinus tachycardia Abd - Soft, NT/ND, Positive BS. Ext - No pedal edema Psych - Nml mood and affect Skin - Warm and dry Objective Data Vital Signs Vital Signs: Vital Signs - 24 hr 08/22/24 16:00 08/22/24 20:00 08/22/24 20:23 Temperature Pulse Rate 93 89 85 Respiratory Rate 18 Blood Pressure Pulse Oximetry Oxygen Delivery Oxygen Flow Rate 08/22/24 20:24 08/22/24 20:32 08/22/24 21:14 Temperature 98.7 F Pulse Rate 80 91 Respiratory Rate 20 20 Blood Pressure 123/50 L Pulse Oximetry 91 94 Oxygen Delivery Nasal Cannula Oxygen Flow Rate 1 08/23/24 00:00 08/23/24 02:12 08/23/24 04:00 Temperature Pulse Rate 83 76 86 Respiratory Rate 18 Blood Pressure Pulse Oximetry Oxygen Delivery Oxygen Flow Rate 08/23/24 06:00 08/23/24 07:38 08/23/24 07:38 Temperature 97.2 F L Pulse Rate 80 76 Respiratory Rate 24 H 18 Blood Pressure 124/52 L Pulse Oximetry 95 93 Oxygen Delivery Nasal Cannula Oxygen Flow Rate 1 08/23/24 07:46 08/23/24 08:00 08/23/24 08:00 Temperature Pulse Rate 75 76 Respiratory Rate 18 Blood Pressure Pulse Oximetry 94 Oxygen Delivery Nasal Cannula Oxygen Flow Rate 1 08/23/24 13:15 08/23/24 13:16 08/23/24 13:20 Temperature Pulse Rate 85 108 H Respiratory Rate Blood Pressure Pulse Oximetry 87 L 92 94 Oxygen Delivery Room Air Nasal Cannula Nasal Cannula Oxygen Flow Rate 1 1 08/23/24 13:30 08/23/24 14:33 08/23/24 14:44 Temperature Pulse Rate 90 82 84 Respiratory Rate 18 18 Blood Pressure Pulse Oximetry 93 Oxygen Delivery Nasal Cannula Oxygen Flow Rate 1 Intake/Output Intake/Output: Intake & Output 08/20/24 08/21/24 08/22/24 08/23/24 23:59 23:59 23:59 23:59 Intake Total 116 764 7279 540 Balance 563 955 7764 540 Meds/Results Medications: Active Medications Generic Name Dose Route Start Last Admin Trade Name Freq PRN Reason Stop Dose Admin Acetaminophen 650 mg 08/16/24 16:07 08/17/24 21:16 Acetaminophen 325 Mg Tablet PO 650 mg Q4H PRN Administration Mild Pain (1-3) or Fever Albuterol 2.5 mg 08/16/24 20:00 08/23/24 14:33 Albuterol Sulfate Neb 2.5 Mg/3 Ml Inh INHALATION 2.5 mg Q6HRT MICHAEL Administration Amlodipine Besylate 5 mg 08/16/24 22:30 08/18/24 09:00 Amlodipine Besylate 5 Mg Tablet PO 5 mg DAILY MICHAEL Administration Anastrozole 1 mg 08/17/24 09:00 08/23/24 08:32 Anastrozole (*Chemo) 1 Mg Tablet PO 1 mg DAILY MICHAEL Administration Aspirin 81 mg 08/16/24 22:35 08/23/24 08:32 Aspirin 81 Mg Enteric Tablet PO 81 mg DAILY MICHEAL Administration Bupropion HCl 150 mg 08/16/24 22:35 08/23/24 08:32 Bupropion Hcl Xl (24 Hr) 150 Mg Tabcr PO 150 mg QAM MICHAEL Administration Clonazepam 0.5 mg 08/16/24 23:10 08/22/24 20:58 Clonazepam (*Crx) 0.5 Mg Tablet PO 0.5 mg HS MICHAEL Administration Clopidogrel Bisulfate 75 mg 08/22/24 09:00 08/23/24 08:32 Clopidogrel Bisulfate 75 Mg Tablet PO 75 mg QAM MICHAEL Administration Guaifenesin 600 mg 08/20/24 21:00 08/23/24 08:32 Guaifenesin 12 Hr 600 Mg Tabcr PO 600 mg Q12HR MICHAEL Administration Guaifenesin/Dextromethorphan 10 ml 08/20/24 16:24 Guaifenesin/Dextromethorphan 10 Ml Udc PO Q4HR PRN Cough Levothyroxine Sodium 75 mcg 08/17/24 06:30 08/23/24 05:50 Levothyroxine Sodium 75 Mcg Tablet PO 75 mcg DAILY@0630 MICHAEL Administration Linaclotide 145 mcg 08/19/24 11:35 08/22/24 09:32 Linaclotide 145 Mcg Capsule PO 145 mcg Q72HR MICHAEL Administration Linezolid 600 mg 08/23/24 09:00 08/23/24 09:51 Linezolid 600 Mg Tablet PO 08/29/24 21:01 600 mg Q12HR MICHAEL Administration Loratadine 10 mg 08/16/24 22:35 08/23/24 08:32 Loratadine 10 Mg Tablet PO 10 mg QAM MICHAEL Administration Metoprolol Succinate 25 mg 08/21/24 13:50 08/23/24 08:32 Metoprolol Succinate Ext Rel 25 Mg Tabcr PO 25 mg QAM MICHAEL Administration Nicotine 1 patch 08/17/24 09:00 08/23/24 08:32 Nicotine (*Dong) 21 Mg Patch TRANSDERM 1 patch DAILY MICHAEL Administration Rosuvastatin Calcium 40 mg 08/16/24 23:10 08/22/24 20:58 Rosuvastatin 20 Mg Tablet PO 40 mg HS MICHAEL Administration Radiology Results: ITS Impressions Pulmonary Perfusion Imaging 08/16/24 14:38 IMPRESSION: 1: Intermediate probability for pulmonary embolism. Chest CT 08/18/24 17:10 IMPRESSION: Post radiation change without additional abnormality within the pulmonary parenchyma. Compression of the superior endplate of T11 with dense sclerosis demonstrating progression from the previous examination of the chest (two-view plain film evaluation) on 09/24/2023 Chest X-Ray 08/19/24 14:28 IMPRESSION: No acute cardiopulmonary pathology. Venous Doppler Study 08/20/24 18:11 IMPRESSION: 1. No deep venous thrombosis. Chest CTA 08/22/24 12:20 IMPRESSION: 1. No pulmonary embolism. 2. No acute cardiopulmonary pathology. 3. Compression fracture of T11 with no change from previous examination. Labs Labs: Laboratory Results - last 24 hr 08/23/24 05:22 WBC 14.8 H RBC 2.50 L Hgb 8.2 L Hct 25.9 L MCV 103.6 H MCH 32.8 MCHC 31.7 L RDW 17.8 H Plt Count 231 MPV 10.2 Sodium 134 L Potassium 3.9 Chloride 102 Carbon Dioxide 30 Anion Gap 2 L BUN 38 H D Creatinine 1.43 H Estim Creat Clear Calc 22 Estimated GFR 36 L Glucose 134 H Calcium 8.9 Magnesium 2.2 Total Bilirubin 0.2 AST 33 ALT 48 H Alkaline Phosphatase 58 Total Protein 5.2 L Albumin 2.9 L Quality VTE Prophylaxis VTE prophylaxis: mechanical ordered and pharmacologic ordered -Patient's previous records reviewed on admission -ER notes reviewed in detail on admission -discussed all findings and current treatment plan with patient/Family/POA -Consultations reviewed for recommendations -Patient's disposition for safe discharge discussed with case fitter Dictation performed by [employer] direct speech recognition software, therefore nightclub manager variants and typographical errors may occur. Hospitalist MIPS Advance Care Plan I have confirmed that the patient's Advanced Care Plan is present, code status is documented, or surrogate decision maker is listed in patient medical record.: Yes Medication Reconciliation I have utilized all available resources to obtain, update and review the patients current medications (includes all prescriptions, OTC, herbals, cannabis, and nutritional supplements).: Yes The patient is not eligible for med reconciliation; the patient is in a emergent medical situation where delaying treatment would jeopardize the patients health.: No
[2024-08-23] MEDS: clonazePAM (*CRX) 0.5 MG TABLET PO (21:21)
[2024-08-23] MEDS: ROSUVASTATIN 20 MG TABLET 40 MG PO (21:21)
[2024-08-24] VITALS (11 sets, daily range): BP systolic 114–123; BP diastolic 50–54; PULSE 74–83; RESP 18–20; TEMP 36.4–36.6; O2SAT 93–96
[2024-08-24] MEDS: ALBUTEROL SULFATE NEB 2.5 MG/3 ML INH INHALATION ×2 (02:04→07:48)
[2024-08-24] MEDS: LEVOTHYROXINE SODIUM 75 MCG TABLET PO (05:41)
[2024-08-24 06:12] LABS: Hematocrit 27.8 % (37.0-47.0); Hemoglobin 8.7 g/dL (12.0-15.0); Mean Corpuscular HGB Conc 31.3 g/dl (32-36); Mean Corpuscular Hemoglobin 32.7 pg (26-34); Mean Corpuscular Volume 104.5 fl (80-100); Mean Platelet Volume 10.2 fl (7.4-10.4); Platelet Count Result 239 k/mm3 (150-375); Red Blood Count 2.66 M/mm3 (4.2-5.4); Red Cell Distribution Width 17.9 % (11.5-14.5); White Blood Count 12.5 K/mm3 (4.5-10.0)
[2024-08-24 06:23] LABS: Alanine Aminotransferase 47 U/L (6-35); Alkaline Phosphatase 56 U/L (38-126); Anion Gap 4 mmol/L (4-12); Aspartate Amino Transferase 32 U/L (14-36); Bilirubin,Total 0.3 mg/dL (0.2-1.3); Blood Urea Nitrogen 35 mg/dL (7-17); Calcium 8.7 mg/dL (8.4-10.2); Carbon Dioxide 31 mmol/L (22-30); Chloride 100 mmol/L (98-107); Estimated CRCL calculation 28 ml/min; Estimated Glomerular Filt Rate 49; Glucose 100 mg/dL (65-110); Magnesium 2.1 mg/dL (1.6-2.3); Sodium 135 mmol/L (137-145); Total Protein 5.3 g/dL (6.3-8.2)
[2024-08-24] MEDS: guaiFENesin 12 HR 600 MG TABCR PO (10:11)
[2024-08-24] MEDS: METOPROLOL SUCCINATE EXT REL 25 MG TABCR PO (10:11)
[2024-08-24] MEDS: ASPIRIN 81 MG ENTERIC TABLET PO (10:11)
[2024-08-24] MEDS: CLOPIDOGREL BISULFATE 75 MG TABLET PO (10:11)
[2024-08-24] MEDS: LORATADINE 10 MG TABLET PO (10:11)
[2024-08-24] MEDS: buPROPion HCL XL (24 HR) 150 MG TABCR PO (10:12)
[2024-08-24] MEDS: LINEZOLID 600 MG TABLET PO (10:12)
[2024-08-24] MEDS: ANASTROZOLE (*CHEMO) 1 MG TABLET PO (10:12)
[2024-08-24] MEDS: NICOTINE (*PBKC) 21 MG PATCH 1 PATCH TRANSDERM (10:14)
--- NOTE | 2024-08-24 13:17 | PCRCNOTE ---
RT called [facility] to notify of patient being discharged soon so her oxygen concentrator can be delivered to her home. RN notified.
--- NOTE | 2024-08-24 14:27 | P.DS_ITS ---
DS: Admitting Diagnosis Discharge Date 08/24/2024 Admitting Diagnosis acute respiratory failure with hypoxia and hypercapnia/ COPD exacerbation/ UTI/ syncopal episode DS: Discharge Diagnosis Discharge Diagnosis (1) Acute respiratory failure with hypoxia and hypercarbia: Code(s): J96.01 - Acute respiratory failure with hypoxia; J96.02 - Acute respiratory failure with hypercapnia Status: Acute Assessment and Plan: Patient with acute respiratory failure. ABG 7.33/46/[address] chest shows severe emphysema, biapical scarring. Acute resp failure related to COPD exacerbation and possibly PE. * continue albuterol * supplemental oxygen currently on 1 L wean as tolerated to maintain 92% * home oxygen study currently does not met for oxygen however patient does have episodes of low oxygen saturation with activity * CTA Negative for PE stopped lovenox (2) COPD exacerbation: Code(s): J44.1 - Chronic obstructive pulmonary disease with (acute) exacerbation Status: Acute Assessment and Plan: COPD exacerbation. Treated with Levaquin, Solu-Medrol and DuoNebs * Wean oxygen * Continue scheduled Albuterol. 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 * metoprolol stopped but resumed due to tachycardia HR in the 120s to 140s discussed with cardiology * Continue ASA. Brilinta was changed to Plavix. * continue with telemetry monitoring (4) Breast cancer metastasized to liver: Qualifiers: Laterality: unspecified laterality Qualified Code(s): C50.919 - Malignant neoplasm of unspecified site of unspecified female breast; C78.7 - Secondary malignant neoplasm of liver and intrahepatic bile duct Code(s): C50.919 - Malignant neoplasm of unspecified site of unspecified female breast; C78.7 - Secondary malignant neoplasm of liver and intrahepatic bile duct Status: Chronic Assessment and Plan: * Continue anastrozole (5) Stage 3b chronic kidney disease: Code(s): N18.32 - Chronic kidney disease, stage 3b Status: Chronic Assessment and Plan: Cr baseline runs 1.1-1.6 Cr stable here * Renally dose medications * Monitor renal function, UOP and electrolytes. * avoid nephrotoxic medications (6) Chronic anemia: Code(s): D64.9 - Anemia, unspecified Status: Chronic Assessment and Plan: No signs of acute bleeding. probably related to metastatic breast CA * Transfuse for hemoglobin less than 7 or symptomatic (7) Hypertension: Code(s): I10 - Essential (primary) hypertension Status: Chronic Assessment and Plan: Patient's blood pressure was reviewed on 08/21, mild HTN * resume metoprolol * monitor BP per unit protocol (8) Hypothyroidism: Code(s): E03.9 - Hypothyroidism, unspecified Status: Chronic Assessment and Plan: * Continue home levothyroxine (9) UTI (urinary tract infection): Code(s): N39.0 - Urinary tract infection, site not specified Status: Resolved Assessment and Plan: UA noted. UCx collected. atient treated with Vanc and completed a course only 3 days since patient was asymptomatic * Abx started. * UCx grew 10-49K colonies of Enterococcus. * due to the malodorous odor from her urine and increase in leukocytosis will treat with linezolid 7 days based off of culture and sensitivities (10) Syncope: Code(s): R55 - Syncope and collapse Status: Acute Assessment and Plan: Patient had syncopal episodes in the afternoon on 08/19, Telemonitor showed sinus bradycardia Echo as above. * Cardiology consulted. * Metoprolol was stopped. Brilinta being converted to Plavix * Tele showing bradycardia resolved but patient is now sinus tachycardic with HR 120's peaked at 140 * Resumed metoprolol after discussion with Cardiology will monitor on telemetry to ensure she does have episodes of bradycardia (11) Bacteremia: Code(s): R78.81 - Bacteremia Status: Acute Assessment and Plan: BCx grew Staph capitis second bottle grew gram positive coccobacilli, This is most likely a contaminant * 2nd BCx ordered 08/22 NGTD (12) Pulmonary embolism: Code(s): I26.99 - Other pulmonary embolism without acute cor pulmonale Status: Ruled-out Assessment and Plan: Concern for PE so VQ scan performed showing intermediate probability of PE. Lovenox started. Dopplers negative * continue Lovenox b.i.d. * will premedicate patient due to contrast allergy and get CTA to rule in or out PE * will transition to oral Eliquis is CTA shows PE RULED Out DS: Summary Hospital Course Reason for hospitalization: acute respiratory failure with hypoxia and hypercapnia/ COPD exacerbation/ UTI/ syncopal episode Hospital Course: Admission: 74-year-old female with past medical history of breast cancer with metastases to the liver, current smoker, COPD and a [place] 1 month ago presents the hospital with increased shortness of breath. Productive cough. Patient did have a myocardial function on the 6. Currently she denies chest pain. She states that the shortness of breath has been increasing since then and worse over the last 2 days. In the emergency room she had expiratory wheezes. Patient denies fever or chills. In the ED:SpO2 84% on room air. In the ED her lab work shows leukocytosis at 12.8, anemia hemoglobin 11, elevated D dimer is 0.65, ABG with a pH is 7.33, pCO2 of 47.5, PO2 of 57, on room air, BUN of 22 creatinine of 1.13 which is around baseline, proBNP of 389, influenza A/B, RSV and COVID negative. Chest x- ray shows no cardiopulmonary disease. Due to patient's contrast allergy she had a a V/Q scan that showed intermittent in probability for pulmonary embolism and was started on weight based Lovenox. She is being admitted for COPD exacerbation with acute on chronic respiratory failure with hypoxemia and hypercarbia with possible PE. Hospital Course: Patient admitted to the medical unit for acute respiratory failure. ABG 7.33/46/[address] chest shows severe emphysema, biapical scarring. Acute resp failure related to COPD exacerbation and possibly PE after V/Q showed moderate probability and she was started on full dose Lovenox BID unCOPD exacerbation. Treated with Levaquin, Solu-Medrol and DuoNebs attempted to wean oxygen but was still requiring with activity or any exertion and home walk study was completed and patient was discharged on 1L supplemental oxygen. 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 Bradycardia here related to metoprolol and/or Brilinta. metoprolol stopped but resumed due to tachycardia HR in the 120s to 140s discussed which was discussed with cardiology both agreed that it was likely a vasovagal episode ASA was continued and Brilinta was changed to Plavix, and patient had no further episodes of bracycardia and tachycardia improved to a controlled rate. UA noted. UCx collected. Patient treated with Vanc and completed a course only 3 days since patient was asymptomatic, UCx grew 10-49K colonies of Enterococcus due to the malodorous odor from her urine and increase in leukocytosis I started treat with linezolid 7 days based off of culture and sensitivities. Patient was seen and assessed day of discharge in no acute distress and felt close to her previous baseline. Patient given oxygen safety education and I encouraged immediate smoking cessation. 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 Patient ambulatory on own and she was discharge to home with oxygen. Status at Discharge Functional status at discharge: independent ambulation Overall status at discharge: patient is back to baseline Time Spent with Patient Time attestation: Total time spent providing and/or coordinating discharge services: Time spent: Greater than 30 minutes Exam Narrative: Gen - NARD in bed still on oxygen for comfort Respiratory- scattered rhonchi with distant BS but no wheezing CV - RRR S1/S2. Abd - Soft, NT/ND, Positive BS. Ext - No pedal edema Psych - Nml mood and affect Skin - Warm and dry DS: Data Data Completed and Pending Labs on day of discharge: Labs from last 24 hours 08/24/24 06:03 WBC 12.5 H RBC 2.66 L Hgb 8.7 L Hct 27.8 L MCV 104.5 H MCH 32.7 MCHC 31.3 L RDW 17.9 H Plt Count 239 MPV 10.2 Sodium 135 L Potassium 4.0 Chloride 100 Carbon Dioxide 31 H Anion Gap 4 BUN 35 H Creatinine 1.09 H Estim Creat Clear Calc 28 Estimated GFR 49 L Glucose 100 Calcium 8.7 Magnesium 2.1 Total Bilirubin 0.3 AST 32 ALT 47 H Alkaline Phosphatase 56 Total Protein 5.3 L Albumin 3.0 L Preliminary micro results at discharge 08/22/24 09:25 Blood Culture - Preliminary Blood 08/22/24 09:25 Blood Culture - Preliminary Blood Discharge Plan Discharge Attending physician on discharge: Edwin Jimenes Consulting providers: Annalisa Small; Mary Babb; Angelica Garcia; Vinh Zavala; Danna Rose; Blanco Noyola; Carlos A Miguel; Trent Cowart; Chas Cosby; Quiana Lamar; Raad Berrios Discharging Clinician: Annalisa Small Anticipated Discharge Date/Time: 08/24/24 14:11 Patient Disposition: Home Activity: may shower, as tolerated and other - see discharge instructions Diet: regular Discharge Instructions: 1). COPD * Continue with your home inhalers as indicated, I have also prescribed nebulizers as needed * You may experience more the usual sputum production while quitting smoking take Mucinex as indicated * During your stay you met requirements for home oxygen it is recommended that you wear 1L oxygen at rest and with activity. Safe practice instructions attached for oxygen safety at home * Recommend continuing to use your incentive spirometer * Follow-up with Pulmonology as scheduled * Encourage immediate smoking cessation I have prescribed nicotine patches 2). UTI * You were found to have a UTI I have prescribed antibiotics please take as prescribed and complete even if feeling better How can you care for yourself at home? ? Keep track of any new symptoms or changes in your symptoms. ? Rest until you feel better. ? Be safe with medicines. Take your medicines exactly as prescribed. Call your doctor if you think you are having a problem with your medicine. ? Do not drive after taking a prescription pain medicine. ? Ensure to follow-up with primary care physician as indicated and provide updated medication list provided to you at discharge. When should you call for help? Call 911 anytime you think you may need emergency care. For example, call if: ? You passed out (lost consciousness). Call your doctor now or seek immediate medical care if: ? You have new symptoms like fever, difficulty breathing, Chest pain, vomiting, or rash. ? You have new or different pain. ? You are confused and are having trouble thinking clearly. ? Your symptoms are getting worse. Watch closely for changes in your health, and be sure to contact your doctor if: ? You do not get better as expected. Patient Instructions: Antibiotic Form, Using Oxygen at Home (DC), COPD (Chronic Obstructive Pulmonary Disease) (DC), Dyspnea Scale and Exercise (DC), Urinary Tract Infection in Older Adults (DC) Patient Language: Lao Stand Alone Forms: General Discharge Information Follow-up/Referrals: Carlos A Miguel MD [Physician] - Call for Appointment Jae Forrest DO [Primary Care Provider] - 2 Weeks Discharge Medications: New albuterol sulfate 2.5 mg /3 mL (0.083 %) Solution For Nebulization 2.5 mg inhalation Q6HRT PRN (Reason: SOB) Qty: 90 0RF clopidogrel 75 mg Tablet 75 mg PO QAM Qty: 30 0RF linezolid 600 mg Tablet 600 mg PO Q12HR Qty: 11 0RF nicotine [Nicoderm CQ] 21 mg/24 hr Patch 24 Hour 1 patch transdermal DAILY Qty: 28 0RF guaifenesin 1,200 mg tablet extended release 12hr 1,200 mg PO BID Qty: 30 0RF Continued Ibrance 125 mg capsule 125 mg PO DAILY Rx Instructions: administer on days 1 through 21 of a 28-day treatment cycle anastrozole 1 mg tablet 1 mg PO DAILY metoprolol succinate 25 mg tablet extended release 24 hr 25 mg PO DAILY levothyroxine 75 mcg tablet 75 mcg PO DAILY Linzess 145 mcg capsule 145 mcg PO .COMPLEX Patient Comments: Pt takes every third day. Next dose due 08/17/24. Rx Instructions: 145 mcg orally every third day.; fexofenadine [Zakiya Allergy] 180 mg tablet 180 mg PO DAILY aspirin [Adult Low Dose Aspirin] 81 mg tablet,delayed release (DR/EC) 81 mg PO DAILY Qty: 90 3RF rosuvastatin 40 mg tablet 40 mg PO HS Qty: 90 3RF clonazepam 0.5 mg tablet 0.5 mg PO HS ondansetron 4 mg tablet,disintegrating 4 mg PO Q8H PRN (Reason: nausea and vomiting) Qty: 28 2RF bupropion HCl 150 mg tablet extended release 24 hr 150 mg PO QAM 30 Days Qty: 90 2RF amlodipine 5 mg tablet 5 mg PO DAILY Qty: 90 1RF albuterol sulfate 90 mcg/actuation HFA aerosol inhaler See Rx Instructions .ROUTE .COMPLEX Qty: 8.5 6RF Dose Instruction: INHALE 2 PUFFS FOUR TIMES DAILY Rx Instructions: INHALE 2 PUFFS FOUR TIMES DAILY omeprazole 20 mg capsule,delayed release(DR/EC) 20 mg PO DAILY Qty: 90 2RF Discontinued ticagrelor [Brilinta] 90 mg Tablet 90 mg PO Q12HR Qty: 180 3RF Other Ambulatory Orders: CA cardiac event monitor (Routine) Timeframe: 1 Month Location: Determined by Patient Ordered By: Carlos A Miguel Date of admission: 08/17/24 10:29 Primary Care Provider: Jae Forrest Admitting Provider: Derek Garvin Attending physician on admission: Edwin Jimenes Condition: Stable Quality VTE Prophylaxis VTE prophylaxis: mechanical ordered and pharmacologic ordered -Patient's previous records reviewed on admission -ER notes reviewed in detail on admission -discussed all findings and current treatment plan with patient/Family/POA -Consultations reviewed for recommendations -Patient's disposition for safe discharge discussed with oil field caser Dictation performed by [employer] direct speech recognition software, therefore delivery of shopping news variants and typographical errors may occur. Hospitalist MIPS Heart Failure (Exclusion) Patient has history of Heart Transplant or Left Ventricular Assistive Device?: No IF YES, STOP HERE Heart Failure (Qualifier) Patient has current or prior documentation of LVEF less than or equal to 40%, or mod/servere depressed LVSF?: No IF NO, STOP HERE
== END 2024-08-24 15:30 | disposition home or self-care (01) | DRG 190 ==
LOC: ANHED 10:12 → ANHIMU 15:46 → ANH3MEDSUR 08-21 08:44 → ANHIMU 08-27 11:13
PROVIDERS: Internal Medicine; Nurse Practitioner Family; Nurse Practitioner Gerontology; Physician Assistant; Admitting Provider Internal Medicine; Emergency Provider Emergency Medicine; PCP Internal Medicine; Visit Provider General Practice
DX: J44.1 Chronic obstructive pulmonary disease with (acute) exacerbation (principal); J96.21 Acute and chronic respiratory failure with hypoxia; J96.22 Acute and chronic respiratory failure with hypercapnia; C78.7 Secondary malignant neoplasm of liver and intrahepatic bile duct; E46 Unspecified protein-calorie malnutrition; Z68.1 Body mass index [BMI] 19.9 or less, adult; R78.81 Bacteremia; N39.0 Urinary tract infection, site not specified; I25.10 Atherosclerotic heart disease of native coronary artery without angina pectoris; N18.32 Chronic kidney disease, stage 3b; E03.9 Hypothyroidism, unspecified; I12.9 Hypertensive chronic kidney disease with stage 1 through stage 4 chronic kidney disease, or unspecified chronic kidney disease; B95.2 Enterococcus as the cause of diseases classified elsewhere; B95.7 Other staphylococcus as the cause of diseases classified elsewhere; N18.9 Chronic kidney disease, unspecified; I95.1 Orthostatic hypotension; R00.1 Bradycardia, unspecified; K21.9 Gastro-esophageal reflux disease without esophagitis; D63.0 Anemia in neoplastic disease; F41.8 Other specified anxiety disorders; E78.5 Hyperlipidemia, unspecified; F17.210 Nicotine dependence, cigarettes, uncomplicated; I25.2 Old myocardial infarction; Z85.3 Personal history of malignant neoplasm of breast; Z20.822 Contact with and (suspected) exposure to COVID-19; Z90.49 Acquired absence of other specified parts of digestive tract; Z95.5 Presence of coronary angioplasty implant and graft; Z66 Do not resuscitate
CPT/HCPCS: 36415; 36600; 71045; 71250; 71275; 78582; 80048; 80053; 80069; 81001; 82375; 82565; 82805; 83050; 83735; 83880; 85018; 85025; 85027; 85380; 85610; 85730; 87040; 87086; 87181; 87637; 93005; 93306; 93970; 94618; 94640; 96365; 96372; 96375; 97110; 97116; 97161; 97166; 97530; 97535; 99285; A9270; A9540; A9558; G0378; J1200; J1650; J1956; J2919; J3370; J7030; J7512; Q9967

== ENCOUNTER 2024-08-26 09:43 | Outpatient (CLI) | payer MEDICARE, SELFPAY ==
--- NOTE | ~2024-08-26 | CT_ITS ---
CLINICAL INDICATION: Personal history of breast cancer, diagnosed in 1997 post right-sided mastectomy and lymph node dissection with lymph node metastases (by report). Liver biopsy dated 09/01/2021 demon strated metastatic carcinoma favoring a breast origin. COMPARISON: 09/08/2023 and 05/05/2022. TECHNIQUE: Multiple contiguous axial images of the chest, abdomen and pelvis were performed without t he administration of intravenous contrast The dose-length product (DLP) was 232.63 mGy-cm. Automated exposure control and iterative reconstruction technique were employed. FINDINGS/OBSERVATIONS: LUNG:Biapical scarring is redemonstrated. Post radiation change right upper and middle lobes, consistent with patient's history. Calcified pleura is detected within the left hemithorax with punctate calcified nodules suggesting p rior granulomatous disease. Panlobular emphysematous disease is also noted. No discrete solid or part solid pulmonary nodules are identified to suggest metastatic disease within the chest. MEDIASTINUM:Redemonstration of multiple calcified lymph nodes suggesting prior granulomatous disease. Although, limited evaluation without intravenous contrast. HEART: The heart is of normal size, without pericardial effusion. SOFT TISSUES OF THE CHEST: Postoperative change along the right anterior chest wall clips in the righ t axilla, consistent with patient's history. BONES OF THE CHEST: Redemonstration of a 2.3 cm sclerotic and lytic lesion within the sternum, unchan ged from 08/18/2024, but an interval change from bone scan dated 09/08/[address] examination of the chest, performed the same day. Liver: Punctate calcifications identified within the hepatic parenchyma, suggesting prior granulomato us disease. The remainder of the liver otherwise demonstrates homogeneous attenuation and is not enlarged. Previously identified lesions, within segments 6, 5, 7 and 8 are no longer visualized on the current study, although without intravenous contrast, detection is limited. Gallbladder and biliary system: The gallbladder is surgically absent. Pancreas: Limited evaluation of the pancreas secondary to the lack of intravenous contrast. Spleen: Punctate calcifications identified within the splenic parenchyma, suggesting prior granulomat ous disease. The remainder of the spleen otherwise demonstrates homogeneous attenuation and is not enlarged. Kidneys: The bilateral kidneys are unremarkable, without hydronephrosis or renal calculi. 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 Adrenal glands: Unremarkable. Gastrointestinal tract: Fecal stasis within the colon. Vasculature: Densely calcified atherosclerotic disease. Lymph nodes: Limited evaluation without intravenous contrast. Pelvic structures: The bladder is decompressed, limiting its evaluation The uterus is either atrophic or surgically absent. Body wall and musculoskeletal: Redemonstration of compression of the superior endplate of T11. Posterior vertebral augmentation change is present at the levels of T12 and L1. No lytic or blastic lesions are identified within the visualized portions of the thoracic and lumbar spines. IMPRESSION: Interval development of a 2.3 cm lytic and sclerotic lesion within the mid sternum, possibly a healin g fracture, for which clinical correlation is needed. Otherwise, findings which represent a positive response to treatment, as detailed above. Reviewed, dictated and finalized at location A. IMPRESSION: Interval development of a 2.3 cm lytic and sclerotic lesion within the mid ster num, possibly a healing fracture, for which clinical correlation is needed. Otherwise, findings which represent a positive response to treatment, as detail ed above.
--- NOTE | ~2024-08-26 | NM_ITS ---
EXAMINATION: NM bone scan whole body DATE: 08/26/2024 14:46 INDICATION: Breast cancer TECHNIQUE: 25.7 mCi Tc-99m HDP was administered intravenously. Delayed whole-body scintigrams were o btained. COMPARISON: Bone scan dated 09/08/[address] chest, abdomen and pelvis dated 08/26/2024 FINDINGS: Physiologic distribution of bone and soft tissue activity. No lesion suspicious for metastatic diseas e. IMPRESSION: 1. Normal study. No evident metastatic disease. Reviewed, dictated and finalized at location A.
== END 2024-08-26 09:44 | disposition home or self-care (01) ==
PROVIDERS: PCP Internal Medicine; Visit Provider Internal Medicine Hematology & Oncology
DX: M89.8X8 Other specified disorders of bone, other site (principal); C50.919 Malignant neoplasm of unspecified site of unspecified female breast
CPT/HCPCS: 71250; 74176; 78306; A9503

== ENCOUNTER 2025-03-03 07:51 | Outpatient (CLI) | payer MEDICARE, SELFPAY ==
--- NOTE | ~2025-03-03 | CT_ITS ---
EXAMINATION: CT chest abdomen pelvis wo con DATE: 03/03/2025 08:18 INDICATION: Metastatic breast cancer TECHNIQUE: Computed tomography (CT) of the chest, abdomen, and pelvis was performed with 100 mL Omnipaque-350 intravenous contrast. Automated exposure control and iterative reconstruction technique were employed. The dose-length product was 271.67 mGy-cm. COMPARISON: 08/26/2024 FINDINGS: CHEST CT: Severe emphysema. Postoperative change of prior partial pneumonectomy with suture lines along the margins of the left upper and lower lobes. Tiny calcified right lower lobe nodule along with large calcified subcarinal lymph nodes consistent with sequela of old granulomatous disease. No other suspicious pulmonary nodules, pneumonia, pulmonary edema or pleural effusion. Heart size is normal. Atherosclerotic coronary artery calcification. Aortic valve calcification. Thoracic aorta is normal in caliber. No pathologically enlarged thoracic lymphadenopathy. Postoperative change of prior right mastectomy and axillary lymph node dissection. No evident interval change in T12 and L1 compression fracture with change of prior vertebroplasty and T11 burst fracture with 4-5 mm retropulsion resulting in mild central canal stenosis at this level. No interval change in a band of sclerosis extending across the sternum which could represent healing fracture or response to treatment of metastatic disease. No new or progressing lytic or blastic bone lesions.. ABDOMEN/PELVIS CT: Multiple hepatic and splenic calcifications consistent with old granulomatous disease. There are linear hypointense bands of likely scarring in the liver. There are a few unchanged more ill-defined and masslike regions of hypodensity in the right hepatic lobe a couple of which are unchanged, one of which appears new and one of which appears increased in size which are suspicious for progression of metastatic disease. For reference there is a new approximately 1.5-2 cm lesion on series 3, image 132 and increase in size of a more caudal previously 1 cm, currently 1.5 cm lesion on image 141. Gallbladder is nonvisualized and likely surgically absent. Pancreas, right kidney and bilateral adrenal glands are normal. Subcentimeter low-attenuation likely cyst in the left kidney. No abnormal bowel wall thickening or obstruction. Bladder is normal. The uterus is not identified and has likely been surgically resected. No free intraperitoneal gas or fluid. No pathologically enlarged abdominal or pelvic lymphadenopathy. No interval change in additional mild compression fractures with Schmorl's nodes along the superior endplates of L2-L4. There are also unchanged old bilateral sacral alar insufficiency fractures. No suspicious lytic or blastic bone lesions. IMPRESSION: 1. Increase in size of a couple nodular hypodense lesions in the liver suspicious for progression of metastatic disease. Could consider further evaluation with post contrast MRI or CT for more definitive determination of size and number of potential lesions. 2. No change in a sclerotic lesion at the sternum which could represent a sternal fracture or stable treated metastatic disease. Reviewed, dictated and finalized at location A. ION ATTENDANT IMPRESSION: 1. Increase in size of a couple nodular hypodense lesions in the liver suspicio us for progression of metastatic disease. Could consider further evaluation wit h post contrast MRI or CT for more definitive determination of size and number of potential lesions. 2. No change in a sclerotic lesion at the sternum which could represent a bui al fracture or stable treated metastatic disease.
--- NOTE | ~2025-03-03 | NM_ITS ---
EXAMINATION: NM bone scan whole body DATE: 03/03/2025 12:19 INDICATION: Metastatic breast cancer TECHNIQUE: 26.5 mCi Tc-99m MDP was administered intravenously. Delayed whole- body scintigrams were obtained. COMPARISON: Bone scan dated 08/26/[address] of chest, abdomen and pelvis dated 03/03/2025 FINDINGS: Small foci of mild activity at the radial aspect of the bilateral wrists and carpi in typical location for osteoarthritis. Otherwise physiologic distribution of bone and soft tissue activity. No lesion suspicious for metastatic disease. IMPRESSION: 1. No bone lesions suspicious for metastatic disease. Reviewed, dictated and finalized at location A. [employer]
--- OUTSIDE RECORDS SUMMARY | 2025-03-03 08:02 | XMS_ITS | Clinical Summary ---
Author Organization [facility] Address [address] [place] [address] Care Team Providers Care Life Skills Specialist Name Role Phone Jae Forrest Primary Care Provider [phone] Allergies Active Allergy Reactions Criticality Noted Date [...] SHORTNESS OF BREATH OR WHEEZING 1 Active buPROPion HCL (WELLBUTRIN XL) 300 mg Extended Release 24 hour tablet Take 150 mg by mouth daily in the morning. 2 Active clonazePAM (KlonoPIN) 0.5 mg Tablet Take 0.5 mg by mouth daily at bedtime. 2 Active fexofenadine (AKBAR) 180 mg tablet Take 180 mg by mouth daily. Active fluticasone propionate (FLONASE) 50 mcg/spray [place], Suspension nasal inhaler Administer 1 [place] in each nostril daily. Active levothyroxine 75 [...] midodrine (PROAMATINE) 2.5 mg Tablet 3 Active metoprolol tartrate (LOPRESSOR) 25 mg tablet Take 25 mg by mouth 2 times daily. Active OTHER Caleitriol 1.25mcg 3xs weekly Active potassium chloride (KLOR-CON) 10 mEq Extended Release tablet Take 1 Tablet (10 mEq) by mouth 2 times daily with meals. 30 Tablet 4 Active ticagrelor (Brilinta) 90 mg Tablet Take 90 mg by mouth 2 times daily. Active palbociclib (Ibrance) 100 mg capsule Take 1 Capsule (100 mg) by mouth daily with breakfast. 21 Capsule 4 5 Active ondansetron (ZOFRAN ODT) 8 mg Tablet, Rapid DissolveIndicat ions:Primary malignant neoplasm of breast with metastasis (CMS/HCC) DISSOLVE 1 TABLET ON TONGUE THEN SWALLOW WITH SALIVA EVERY 8 HOURS NEEDED FOR NAUSEA OR VOMITING 30 Tablet 3 5 Active clopidogreL (PLAVIX) 75 mg Tablet Take 75 mg by mouth daily in the morning. 5 Active prochlorperazin e maleate (COMPAZINE) 10 mg tablet TAKE 1 TABLET(10 MG) BY MOUTH EVERY 6 HOURS NEEDED FOR NAUSEA OR VOMITING 20 Tablet Active Serevent Diskus 50 mcg/dose Disk with Device Take 1 Puff by inhalation 2 times daily. Active anastrozole (ARIMIDEX) 1 mg tablet TAKE 1 TABLET(1 MG) BY MOUTH DAILY 90 Tablet 3 5 Active Active Problems Problem Noted Date Diagnosed Date Anemia of chronic renal failure, stage 3b 2024 Other fatigue 11/08/2024 Chronic constipation 11/08/2024 Cancer, metastatic to bone 05/18/2022 Primary malignant neoplasm of breast with metast asis 09/09/2021 Encounters Date Type Department Care Team Description 02/25/2025 External Device Data STL ABSTRACTION Provider, Abstract 02/17/2025 Orders Only [facility] [address] [place] [address] Noe Alatorre MD Stage 3b chronic kidney disease (CMS/HCC) 02/03/2025 Orders Only [facility] [address] [place] [id number] Noe Alatorre MD Stage 3b chronic kidney disease (CMS/HCC) 01/20/2025 Orders Only [facility] [address] [place] [address] Noe Alatorre MD Stage 3b chronic kidney disease (CMS/HCC) 01/07/2025 2:00 PM INFRASTRUCTURE ENGINEER Office Visit [facility] [address] [place] [address] Noe Alatorre MD Stage 3b chronic kidney disease (CMS/HCC) (Primary Dx); Primary malignant neoplasm of breast with metastasis (CMS/HCC) 01/06/2025 Orders Only [facility] [address] [place] [address] Noe Alatorre MD Stage 3b chronic kidney disease (CMS/HCC) 01/03/2025 Orders Only [facility] [address] [place] [address] Noe Alatorre MD 01/02/2025 Orders Only [facility] - [place] [address] [place] [address] Noe Alatorre MD 12/30/2024 Refill [facility] - [place] [address] [place] [address] Noe Alatorre MD 12/25/2024 External Device Data STL ABSTRACTION Provider, Abstract 12/25/2024 External Device Data STL ABSTRACTION Provider, Abstract 12/23/2024 Orders Only [facility] [address] [place] [address] Noe Alatorre MD Stage 3b chronic kidney disease (CMS/HCC) 12/09/2024 Orders Only [facility] - [place] [place] [address] Noe Alatorre MD Stage 3b chronic kidney [...] Sign Reading Time Taken Comments Blood Pressure 189/79 01/07/2025 1:39 PM INFRASTRUCTURE ENGINEER Pulse 76 01/07/2025 1:36 PM INFRASTRUCTURE ENGINEER Temperature 36.4 C (97.5 F) 01/07/2025 1:36 PM INFRASTRUCTURE ENGINEER Respiratory Rate 16 01/07/2025 1:36 PM INFRASTRUCTURE ENGINEER Oxygen Saturation 90% 01/07/2025 1:36 PM INFRASTRUCTURE ENGINEER Inhaled Oxygen Concentration - - Weight 44.4 kg (97 lb 12.8 oz) 01/07/2025 1:36 P M INFRASTRUCTURE ENGINEER Height 157.5 cm (5' 2) 09/21/2022 1:05 PM CDT Body Mass Index 17.89 09/21/2022 1:05 PM CDT Plan of Treatment Upcoming Encounters Date Type Department Care Team (Late st Contact Info) Description 03/10/2025 9:30 AM INFRASTRUCTURE ENGINEER Office Visit [facility] - [place] [address] [facility] [address] [place] [address] Noe Alatorre MD [address] [facility] [address] [place] [address] Health Maintenance Due Date Last [...] 1-dose 75+ series) 01/08/2023 INFLUENZA VACCINE (#1) 2024 11/16/2015, 2014 COVID-19 Vaccine (2024-2 6 season) 2024 12/26/2021, 06/19/2021, 05/08/2020, Additional history exists Medical Devices Implanted Type Area Operations Accountant Device Identifier Shelf Expiration Date Model / Serial / Lot Cement-T12 Kypho-06/06/2022 Implanted:Qty: 1 on 06/06/2022 by Lucian Plaza MD Cement Spine Thoracic 09/02/2024 CX01A / / [id number] Description:Kyphon Xpede bon e cement implanted in T12 on 06/06/[address] Plaza Cement-L1 Kypho-06/06/2022 Implanted:Qty: 1 on 06/06/2022 by Lucian Plaza MD Cement Spine Lumbar 09/02/2024 CX01A / / [id number] Description:Kyphon Xpede bon e cement implanted in L1 on 06/06/[address] Plaza 2 Cardiac Stents Procedures Procedure Name Priority Date/Time Associated Diagnosis Comments COMPREHENSIVE METABOLIC PANEL Routine 01/01/2025 2:57 PM CDT CBC WITH AUTODIFFERENTIAL Routine 2024 2:21 PM CDT CHG CA 15 3 Routine 01/01/2025 11:12 AM CDT from Last 3 Months Results * COMPREHENSIVE METABOLIC PANEL (01/01/2025 2:57 PM CDT) Blood us Noe Alatorre MD CHEMISTRY ORDERABLES Final Resu lt * CBC WITH AUTODIFFERENTIAL (01/01/2025 2:21 PM CDT) Blood us Noe Alatorre MD HEMATOLOGY ORDERABLES Final Res ult * CHG CA 15 3 (01/01/2025 11:12 AM CDT) Noe Alatorre MD CHG - LABORATORY Final Result from Last 3 Months Insurance [email or web address] Application [facility] [id number] MEDICARE PART A AND B [email or web address] Application [facility] [id number] Advance Directives For more information, please contact: [phone] * Full Code (Latest Code Status on File) Date Activated Date Inactivated Comments 06/06/2022 12:45 PM 06/07/2022 12:11 AM Care Teams Life Skills Specialist Relationship Specialty Start Date End Date Jae Forrest DO [address] [facility] [address] [place] [address] PCP - General Internal Medicine 07/22/24
--- OUTSIDE RECORDS SUMMARY | 2025-03-03 08:02 | XMS_ITS | Clinical Summary ---
Author Organization [facility] [address] [facility] [address] Address [address] [place] [address] Care Team Providers Care Openstack Cloud Consulting Architect Name Role Phone Jae Forrest DO Primary Care Provider Allergies Active Allergy Reactions Criticality Noted Date Comments Albuterol Itching Low Amoxicillin Rash Medium 05/30/2022 Bacitracin Itching Low 06/04/2020 Cinnamon Rash Medium 05/30/2022 Ipratropium-Albuterol Itching Low 06/04/2020 Iodinated Contrast Media Swelling High 08/05/2024 HIVES AND ITCHING Iodine Hives Medium 06/04/2020 Ipratropium Latex Blisters High 06/04/2020 Neomycin Sulfate Other (See comments) Low 06/04/2020 Unknown Nitrofurantoin Perfume Blisters High 08/05/2024 Polymyxin B Hives,Rash High 10/05/2023 Shellfish Derived Other (See comments) High Reaction: [...] tablet (134 mg total) by mouth Active ondansetron ODT (ZOFRAN-ODT) 4 mg disintegrating [...] 40 mg tabletIndications: Coronary artery disease involving [place] coronary artery of [place] heart without angina pectoris Take 1 tablet (40 mg total) by mouth daily 90 tablet 3 4 Active clopidogreL (PLAVIX) 75 mg tablet Take 1 tablet (75 mg total) by mouth every morning Active prochlorperazine (COMPAZINE) 10 mg tablet Take 1 tablet (10 mg total) by mouth every 6 (six) hours as needed 5 Active Serevent Diskus 50 mcg/dose diskus inhaler Inhale 1 puff 2 (two) times a day 5 Active linaCLOtide (LINZESS) 145 mcg capsule Take 1 capsule (145 mcg total) by mouth every 3 (three) days Active guaiFENesin ER (MUCINEX) 600 mg 12 hr tablet Take 2 tablets (1,200 mg total) by mouth 2 (two) times a day Active metoprolol XL (TOPROL-XL) 25 mg extended release tablet Take 1 tablet (25 mg total) by mouth daily 5 Active NIFEdipine (NIFEdipine CC) 30 mg 24 hr tablet Take 1 tablet (30 mg total) by mouth nightly 30 tablet 12 5 Active Active Problems Problem Noted Date [...] Tobacco abuse Coronary artery disease invo lving [place] coronary artery of [place] heart without angina pectoris 09/18/2015 Overview (06/09/2016): Coronary artery disease involving [place] coronary artery of [place] heart without angina pectoris History of myocardial infarction 09/18/2015 Overview (06/10/2016): History of myocardial infarction Palpitations 09/18/2015 Overview (06/10/2016): Palpitations Resolved Problems Problem Noted Date Diagnosed Date Resolved Date Dyslipidemia 09/18/2015 03/23/2021 Overview (06/08/2016): Dyslipidemia Encounters Date Type Department Care Team Description 01/15/2025 11:45 AM AIR INTERCEPT CONTROLLER SUPERVISOR Office Visit [facility] Cardiology [address] [place] [address] Thor Marquez MD Coronary artery disease involving [place] coronary artery of [place] heart without angina pectoris (Primary Dx); History of ST elevation myocardial infarction; Status post angioplasty with stent; Dyspnea on exertion; Chronic respiratory failure with hypoxia, on home O2 therapy (HCC); Tobacco abuse; Noncompliance from Last 3 Months Medical History Medical [...] on file Legal Sex Female 2:02 AM AIR INTERCEPT CONTROLLER SUPERVISOR Gender Identity Not on file Sexual Orientation Not on file Last Filed Vital Signs Vital Sign Reading Time Taken Comments Blood Pressure 186/78 01/15/2025 11:45 AM AIR INTERCEPT CONTROLLER SUPERVISOR Pulse 74 01/15/2025 11:45 AM AIR INTERCEPT CONTROLLER SUPERVISOR Temperature 36.4 C (97.5 F) 06/04/2020 9:22 AM CDT Respiratory Rate 14 11/01/2024 9:48 AM CDT Oxygen Saturation 93% 01/15/2025 11:45 AM AIR INTERCEPT CONTROLLER SUPERVISOR Inhaled Oxygen Concentration - - Weight 45.8 kg (101 lb) 01/15/2025 11:45 AM AIR INTERCEPT CONTROLLER SUPERVISOR Height 157.5 cm (5' 2) 01/15/2025 11:45 AM AIR INTERCEPT CONTROLLER SUPERVISOR Body Mass Index 18.47 01/15/2025 11:45 AM AIR INTERCEPT CONTROLLER SUPERVISOR Plan of Treatment Health Maintenance Due Date Last Done Comments Depression Screening 1950 Fall Risk Assessment 1950 Hepatitis C Screening 1950 Osteoporosis Screening-Bone Density Scan 1950 DTaP/Tdap/Td Vaccine (1 - Tdap) 01/08/1959 Hepatitis B Screening 01/08/1966 Well Visit 65+ 01/08/2013 Zoster Vaccine (1 of 2) 02/01/2016 12/07/2015 Covid-19 Vaccine (2024-2 6 season) 2024 06/19/2021, 06/19/2021, 12/26/2020, Additional history exists Influenza Vaccine (#1) 2024 9, 12/03/2017, 12/11/2016, Additional history exists Pneumococcal vaccine 65+ Completed 015, 01/12/2015, 12/02/2009, Additional history exists Insurance [facility] MEDICARE MEDICARE AARP Care Teams Openstack Cloud Consulting Architect Relationship Specialty Start Date End Date Jae Forrest DO PCP - General Internal Medicine 12/12/23
--- OUTSIDE RECORDS SUMMARY | 2025-03-03 08:02 | XMS_ITS | Patient Health Record ---
Author Organization [facility] Medical Address [address] [facility] [place] [address] Phone [phone] Care Team Providers Care Meat Puller Name Role Phone Jose Cruz AGUILAR, Maria Luisa Primary Care Provider Allergies Allergen (clinical drug [...] Frequency, Duration) Notes Start Date End Date Diagnosis (ICD Code) Status Levothyroxine 75 mcg (0.075 mg) tablet 1 tab(s) orally once a day *Reorder from Medispan for eRx and Interaction Alerts* Active Zakiya 24 Hour Allergy 180 mg tablet 1 tab(s) orally once a day *Reorder from Medispan for eRx and Interaction Alerts* Allergic rhinitis (ICD_10 - J30.9) Active Simvastatin 40 mg tablet 1 tab(s) orally once a day (at bedtime) Active Spiriva Respimat 2.5mcg/actuation inhaler as directed inhaled as directed *Pick strength-form from Firm[employer] for eRX* 8 Chronic obstructive pulmonary disease, unspecified (ICD_10 - J44.9) Not-Takin g clonazePAM 0.5 mg tablet 1 tab(s) orally once a day Active Aspirin Enteric Coated 325 mg delayed release tablet 1 tab(s) orally once a day *Reorder from [employer] for eRx and Interaction Alerts* Active Omeprazole 20 mg delayed release capsule 1 cap(s) orally once a day *Pick strength-form from [employer] for eRX* Active buPROPion 300 mg/24 hours tablet, extended release 1 tab(s) orally once a day *Reorder from [employer] for eRx and Interaction Alerts* Active Immunizations Status Vaccine Route Administration Date Visit Date Comments Administered Zoster Unknown 12/07/2015 Immuni zation Given by from source eCW:: Ill. Influenza (split), 3 yrs and above Unknown 11/16/2015 Immunization Giv en by from source eCW:: Ill. Influenza (split), 3 yrs and above Unknown 01/04/2015 Immunization Giv en by from source eCW:: [place] Pneumococcal polysaccharide PPV23 Unknown 01/12/2015 Immunization Given by from source eCW:: Ill. Pneumococcal polysaccharide PPV23 Unknown 01/11/2002 Immunization Given by from source eCW:: [place] Social History Sex Observation Social History Observation Description Sex Observation Female Social History Additional Details Category Social Info Options Details Migrated Social History Migrated Social History (Alcohol): Points: 0, Interpretation: Negative ;(Alcohol:):no ;(Children:):sons:3 ;(Drug use:):no ;(Marital Status:): ;(Smoking:):yes status current smoker /// Miguelina Álvarez 02/20/15 1201 PM > Pt smokes about 1 pack per day for about 50 years., up dated 04/19/2018 ; Problems Problem Type SNOMED Code ICD Code Dates Problem Status W/U Status Risk Notes Problem Hypothyroidism (10121767) Other specified hypothyroidism (E03.8) Added On:01/25 Active confirmed Problem Tobacco user (796320963) Nicotine dependence, unspecified, uncomplicated (F17.200) Added On:02/03 Active confirmed Problem Dysthymia (15392255) Dysthymic disorder (F34.1) Added On:05/28 Active confirmed Problem Chronic ischemic heart disease (196735635) Chronic ischemic heart disease, unspecified (I25.9) Added On:02/20 Active confirmed Problem Acute exacerbation of chronic obstructive airways disease (625712072) Chronic obstructive pulmonary disease with (acute) exacerbation (J44.1) Added On:05/18 Active confirmed Problem Chronic obstructive pulmonary disease (23376929) Chronic obstructive pulmonary disease, unspecified (J44.9) Added On:05/28 Active confirmed Problem Osteoarthritis of first carpometacarpal joint (94573970) Osteoarthritis of first carpometacarpal joint, unspecified (M18.9) Added On:02/03 Active confirmed Problem Tobacco use (772024590) Tobacco use (Z72.0) Added On:05/28 Active confirmed Problem Hyperlipidemia (61571428) Other hyperlipidemia (E78.4) Added On:01/25 Active confirmed Problem Essential hypertension (77507736) Essential (primary) hypertension (I10) Added On:05/28 Active confirmed Problem Allergic rhinitis (46781651) Allergic rhinitis (J30.9) Added On:04/19 Active confirmed Plan Of Treatment No Information Medications Administered Medication Instructions Date of Administration Dosage Diagnosis (ICD Code) Notes Methylprednisolone 40mg 05/18/2017 40 mg Methylprednisolone [...] surgery tonsillectomy 1955 Hospitalization History Reason Date(Month/Year) lapchol2012
--- OUTSIDE RECORDS SUMMARY | 2025-03-03 08:02 | XMS_ITS | Encounter Summary ---
Author Organization [facility] Healthcare Address [address] [place] [address] Care Team Providers Care It Application Support Analyst Name Role Phone Jae Forrest DO Primary Care Provider [phone] Encounter Details Date Type Department Care Team (Late st Contact Info) Description 08/17/2024 Orders Only [facility] Health Information Management [address] [place] [address] Scanning, Provider Social History Tobacco Use Types Packs/Day Years Used Date Smoking Tobacco: Every Day Cigarettes Smokeless Tobacco: Never Comments:Smoking History Pac ks/day: 1 Packs Alcohol Use Standard Drinks/Week Comments No 0 (1 standard drink = 0.6 oz pur e alcohol) Comments Unknown Sex and Gender Information Value Date Recorded Sex Assigned at Not on file Legal Sex Female 2:02 AM DUE DILIGENCE COORDINATOR Gender Identity Not on file Sexual Orientation Not on file documented as of this encounter Plan of Treatment Not on file documented as of this encounter Procedures Procedure Name Priority Date/Time Associated Diagnosis Comments CARDIOLOGY DOCUMENT SCAN 08/17/2024 documented in this encounter Results * Cardiology Document Scan (08/17/2024) Anatomical Region Laterality Modality Other us Provider Scanning CV CARDIAC SERVICES PROCEDURES Final Result documented in this encounter Visit Diagnoses Not on filedocumented in this encounter Care Teams It Application Support Analyst Relationship Specialty Start Date End Date Jae Forrest DO PCP - General Internal Medicine 12/12/23 documented as of this encounter
--- OUTSIDE RECORDS SUMMARY | 2025-03-03 08:02 | XMS_ITS | Clinical Summary ---
Author Organization [facility] Address [address] [place] [address] Care Team Providers Care Photoengraving Etcher Apprentice Name Role Phone Unavailable Primary Care Provider [...] 75+ series) 01/08/2023 COVID-19 Vaccine ( - 2024-2 6 season) 2024 Influenza Adult (#1) 2024 Hepatitis A Vaccines Aged Out No long er eligible based on patient's age to complete this topic Meningococcal B Vaccine Aged Out No l onger eligible based on patient's age to complete this topic Meningococcal Vaccine Aged Out No kirby randy eligible based on patient's age to complete this topic RSV Immunizations Under 20 Months Aged Out No longer eligible based on patient's age to complete this topic
--- OUTSIDE RECORDS SUMMARY | 2025-03-03 08:02 | XMS_ITS | Encounter Summary ---
Author Organization [facility] Address [address] [place] [address] Care Team Providers Care Card Seller Name Role Phone Jae Forrest DO Primary Care Provider [phone] Encounter Details Date Type Department Care Team [...] st Contact Info) Description 03/10/2025 9:30 AM SCHOOL AIDE Office Visit [facility] Oncology and Hematology - [place] [address] [facility] [address] [place] [address] Noe Alatorre MD [address] [facility] [address] [place] [address] documented as of this encounter Visit Diagnoses Diagnosis Follow-up examination following surgery- Primary documented in this encounter Care Teams Card Seller Relationship Specialty Start Date End Date Jae Forrest DO [address] [facility] [address] [facility] [address] [place] [address] PCP - General Internal Medicine 07/22/24 documented as of this encounter
== END 2025-03-03 07:52 | disposition home or self-care (01) ==
PROVIDERS: PCP Internal Medicine; Visit Provider Internal Medicine Hematology & Oncology
DX: K76.9 Liver disease, unspecified (principal); M89.8X8 Other specified disorders of bone, other site; C50.919 Malignant neoplasm of unspecified site of unspecified female breast
CPT/HCPCS: 71250; 74176; 78306; A9503